=== PATIENT | female | born 1940 | race Caucasian/White ===

== ENCOUNTER 2018-04-15 22:06 | Emergency (ER) | payer OTHER ==
--- OUTSIDE RECORDS SUMMARY | 2018-04-15 22:07 | XMS REPORT | Clinical Summary ---
:1940 Author Organization [facility] Address [address] [place] [address] Phone Care Team Providers Name Role Phone Unavailable Primary Care Provider Unavailable Allergies No Known Allergies Current Medications Prescription Sig. Disp. Refills Start Date End Date Status digoxin (LANOXIN) Take 250 mcg Active 0.25 MG tablet by mouth daily. olmesartan-hydrochl Take 1 tablet Active orothiazide by mouth (BENICAR HCT) 40-25 daily. mg per tablet rivaroxaban Take 20 mg by Active (XARELTO) 20 mg Tab mouth daily. tablet amLODIPine Take 1 tablet 30 tablet 0 05/17/2017 05/17/2018 Active (NORVASC) 10 MG (10 mg total) tablet by mouth nightly. atorvastatin Take 1 tablet 30 tablet 0 05/17/2017 05/17/2018 Active (LIPITOR) 40 MG (40 mg total) tablet by mouth nightly. metoprolol Take 1 tablet 60 tablet 0 05/17/2017 05/17/2018 Active (LOPRESSOR) 100 MG (100 mg tablet total) by mouth 2 (two) times daily. senna-docusate Take 1 tablet 30 tablet 0 05/17/2017 05/17/2018 Active (SENOKOT S) 8.6-50 by mouth 2 mg per tablet (two) times daily. metoprolol Take 50 mg by 05/17/2017 Discontinued (TOPROL-XL) 50 MG mouth 2 (two) 24 hr tablet times daily. amLODIPine Take 5 mg by 05/17/2017 Discontinued (NORVASC) 5 MG mouth daily. tablet Active Problems Problem Noted Date Cerebrovascular accident (CVA), unspecified mechanism (HCC) 05/15/2017 Stroke (HCC) 05/14/2017 Encounters Date Type Specialty Care Team Description 05/14/2017 - Hospital Encounter General Internal Porsche, Umar, Cerebrovascular 05/17/2017 Medicine MD accident (CVA), [place], unspecified mechanism MD Yane ([facility]) (Primary Dx);Chronic atrial fibrillation (HCC);Essential hypertension after 04/14/2017 Social History Tobacco Use Types Packs/Day Years Used Date Never Smoker Sex Assigned at Date Recorded Not on file Last Filed Vital Signs Vital Sign Reading Time Taken Blood Pressure 158/81 05/17/2017 12:14 PM CDT Pulse 60 05/17/2017 12:14 PM CDT Temperature 35.8 C (96.4 F) 05/17/2017 12:14 PM CDT Respiratory Rate 22 05/17/2017 12:14 PM CDT Oxygen Saturation 97% 05/17/2017 12:14 PM CDT Inhaled Oxygen Concentration - - Weight 64.7 kg (142 lb 10.2 oz) 05/16/2017 4:48 AM CDT Height 162.5 cm (5' 3.98") 05/14/2017 8:00 PM CDT Body Mass Index 24.5 05/16/2017 4:48 AM CDT Plan of Treatment Not on file Results RHYTHM STRIP - SCAN (05/28/2017 12:50 PM)CT brain without IV contrast (2016 9:42 PM) Specimen Performing Laboratory [employer] Narrative FINAL REPORT CT Head without contrast CLINICAL HISTORY: evaluate for stroke Episode of Care: Initial TECHNIQUE: Contiguous axial images through the head without contrast. This exam was performed according to the departmental dose optimization program which includes automated exposure control, adjustment of the mA and/or kV according to the patient size, and/or use of an iterative reconstruction technique. COMPARISON: None FINDINGS: There is no definitive CT evidence of acute infarct. There is no intracranial hemorrhage. There is a chronic lacunar infarct of the right thalamus. There is periventricular and subcortical white matter hypodensity which is nonspecific but compatible with chronic microvascular ischemic change. There are atherosclerotic calcifications of the intracranial circulation. There is generalized parenchymal volume loss without hydrocephalus, midline shift, or apparent mass effect. There are no extra-axial fluid collections. The skull is intact. The visualized paranasal sinuses are well-aerated. There is nonspecific left frontal scalp swelling. IMPRESSION: There is no definitive CT evidence of acute infarct. There is no intracranial hemorrhage. Chronic right thalamic lacunar infarct. Signed: Kieran Dillard MD Report Verified Date/Time:05/16/2017 21:51:07 Reading Location: [facility] Radiology Reading Room Procedure Note Interface, External Ris In - 05/16/2017 9:53 PM CDT FINAL REPORT CT Head without contrast CLINICAL HISTORY: evaluate for stroke Episode of Care: Initial TECHNIQUE: Contiguous axial images through the head without contrast. This exam was performed according to the departmental dose optimization program which includes automated exposure control, adjustment of the mA and/or kV according to the patient size, and/or use of an iterative reconstruction technique. COMPARISON: None FINDINGS: There is no definitive CT evidence of acute infarct. There is no intracranial hemorrhage. There is a chronic lacunar infarct of the right thalamus. There is periventricular and subcortical white matter hypodensity which is nonspecific but compatible with chronic microvascular ischemic change. There are atherosclerotic calcifications of the intracranial circulation. There is generalized parenchymal volume loss without hydrocephalus, midline shift, or apparent mass effect. There are no extra-axial fluid collections. The skull is intact. The visualized paranasal sinuses are well-aerated. There is nonspecific left frontal scalp swelling. IMPRESSION: There is no definitive CT evidence of acute infarct. There is no intracranial hemorrhage. Chronic right thalamic lacunar infarct. Signed: Kieran Dillard MD Report Verified Date/Time: 05/16/2017 21:51:07 Reading Location: [facility] Radiology Reading Room carotid (05/16/2017 9:42 PM) Specimen Performing Laboratory [place] [facility] Narrative FINAL REPORT CT angiogram of the upper chest, neck, and head Comparison:None Reason for exam: Stroke, evaluate for large vessel disease Discussion: Multiple axial CT images of the upper chest, neck, and head were obtained using CT angiography technique. 2-D and 3-D reconstructed images were provided.3D MIPimages were generated. NASCET criteria are utilized when considering stenosis. Please note that CTA is inherently insensitive in evaluating the cavernous and skullbase portions of the internal carotid arteries because of adjacent bone and venous opacification. Dose modulation, iterative reconstruction, and/or weight based adjustment of the mA/kV was utilized to reduce the radiation dose to as low as reasonably achievable. Unenhanced head CT shows intracranial vascular calcification. Bilateral cerebral microvascular changes are noted including a chronic appearing punctate cavitated microvascular infarct right thalamus. Nonspecific ill-defined low-density parenchymal changes of the lateral left thalamus are identified for which subtle left thalamic microvascular infarct cannot be excluded. The appearance could be artifactual. While I see no definitive acute large vessel infarction, please note that CT is not sensitive in detecting or distinguishing acute ischemic disease. There are atherosclerotic calcifications in the aortic arch and in both subclavian arteries. There is a suspected mild stenosis of the right-sided subclavian artery just beyond the innominate bifurcation. Normal flow cervical segment vertebral arteries. There is maintained flow in the cervical carotid systems with bilateral carotid bulb calcified atherosclerotic plaque. On the right, there is only mild stenosis estimated at 20%. On the left, stenosis throughout the carotid bulb region is approximately 50% by NASCET criteria. No other cervical level carotid stenosis. There are atherosclerotic calcifications throughout the carotid siphon regions on both sides with suspected bilateral mild stenosis. Normal flow in the carotid terminus and carotid terminus branches proximally. There is a mild atherosclerotic stenosis of the intradural left vertebral artery. Otherwise normal vertebrobasilar and proximal posterior cerebral artery flow. Impressions: 1. Questionable recent left thalamic microvascular infarct versus artifact. No other specific evidence of acute intracranial abnormality. 2. Left-sided carotid bulb 50% stenosis. Other upper chest, cervical, and intracranial atherosclerotic involvement is only mild in degree. 3. Incidental note is made of a solid spherical mass of the right parotid tail maximal dimension 2 cm. 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 Consider ENT follow-up. Signed: Aubrie Manuel MD Report Verified Date/Time:05/17/2017 09:39:43 Reading Location: [address] Neuro Reading Room Procedure Note Interface, External Ris In - 05/17/2017 9:41 AM CDT FINAL REPORT CT angiogram of the upper chest, neck, and head Comparison: None Reason for exam: Stroke, evaluate for large vessel disease Discussion: Multiple axial CT images of the upper chest, neck, and head were obtained using CT angiography technique. 2-D and 3-D reconstructed images were provided. 3D MIP images were generated. NASCET criteria are utilized when considering stenosis. Please note that CTA is inherently insensitive in evaluating the cavernous and skullbase portions of the internal carotid arteries because of adjacent bone and venous opacification. Dose modulation, iterative reconstruction, and/or weight based adjustment of the mA/kV was utilized to reduce the radiation dose to as low as reasonably achievable. Unenhanced head CT shows intracranial vascular calcification. Bilateral cerebral microvascular changes are noted including a chronic appearing punctate cavitated microvascular infarct right thalamus. Nonspecific ill-defined low-density parenchymal changes of the lateral left thalamus are identified for which subtle left thalamic microvascular infarct cannot be excluded. The appearance could be artifactual. While I see no definitive acute large vessel infarction, please note that CT is not sensitive in detecting or distinguishing acute ischemic disease. There are atherosclerotic calcifications in the aortic arch and in both subclavian arteries. There is a suspected mild stenosis of the right-sided subclavian artery just beyond the innominate bifurcation. Normal flow cervical segment vertebral arteries. There is maintained flow in the cervical carotid systems with bilateral carotid bulb calcified atherosclerotic plaque. On the right, there is only mild stenosis estimated at 20%. On the left, stenosis throughout the carotid bulb region is approximately 50% by NASCET criteria. No other cervical level carotid stenosis. There are atherosclerotic calcifications throughout the carotid siphon regions on both sides with suspected bilateral mild stenosis. Normal flow in the carotid terminus and carotid terminus branches proximally. There is a mild atherosclerotic stenosis of the intradural left vertebral artery. Otherwise normal vertebrobasilar and proximal posterior cerebral artery flow. Impressions: 1. Questionable recent left thalamic microvascular infarct versus artifact. No other specific evidence of acute intracranial abnormality. 2. Left-sided carotid bulb 50% stenosis. Other upper chest, cervical, and intracranial atherosclerotic involvement is only mild in degree. 3. Incidental note is made of a solid spherical mass of the right parotid tail maximal dimension 2 cm. 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 Consider ENT follow-up. Signed: Aubrie Manuel MD Report Verified Date/Time: 05/17/2017 09:39:43 Reading Location: [address] Neuro Reading Room brain (05/16/2017 9:42 PM) Specimen Performing Laboratory [place] [facility] Narrative FINAL REPORT CT angiogram of the upper chest, neck, and head Comparison:None Reason for exam: Stroke, evaluate for large vessel disease Discussion: Multiple axial CT images of the upper chest, neck, and head were obtained using CT angiography technique. 2-D and 3-D reconstructed images were provided.3D MIPimages were generated. NASCET criteria are utilized when considering stenosis. Please note that CTA is inherently insensitive in evaluating the cavernous and skullbase portions of the internal carotid arteries because of adjacent bone and venous opacification. Dose modulation, iterative reconstruction, and/or weight based adjustment of the mA/kV was utilized to reduce the radiation dose to as low as reasonably achievable. Unenhanced head CT shows intracranial vascular calcification. Bilateral cerebral microvascular changes are noted including a chronic appearing punctate cavitated microvascular infarct right thalamus. Nonspecific ill-defined low-density parenchymal changes of the lateral left thalamus are identified for which subtle left thalamic microvascular infarct cannot be excluded. The appearance could be artifactual. While I see no definitive acute large vessel infarction, please note that CT is not sensitive in detecting or distinguishing acute ischemic disease. There are atherosclerotic calcifications in the aortic arch and in both subclavian arteries. There is a suspected mild stenosis of the right-sided subclavian artery just beyond the innominate bifurcation. Normal flow cervical segment vertebral arteries. There is maintained flow in the cervical carotid systems with bilateral carotid bulb calcified atherosclerotic plaque. On the right, there is only mild stenosis estimated at 20%. On the left, stenosis throughout the carotid bulb region is approximately 50% by NASCET criteria. No other cervical level carotid stenosis. There are atherosclerotic calcifications throughout the carotid siphon regions on both sides with suspected bilateral mild stenosis. Normal flow in the carotid terminus and carotid terminus branches proximally. There is a mild atherosclerotic stenosis of the intradural left vertebral artery. Otherwise normal vertebrobasilar and proximal posterior cerebral artery flow. Impressions: 1. Questionable recent left thalamic microvascular infarct versus artifact. No other specific evidence of acute intracranial abnormality. 2. Left-sided carotid bulb 50% stenosis. Other upper chest, cervical, and intracranial atherosclerotic involvement is only mild in degree. 3. Incidental note is made of a solid spherical mass of the right parotid tail maximal dimension 2 cm. 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 Consider ENT follow-up. Signed: Aubrie Manuel MD Report Verified Date/Time:05/17/2017 09:39:43 Reading Location: [facility] [id number] Neuro Reading Room Procedure Note Interface, External Ris In - 05/17/2017 9:41 AM CDT FINAL REPORT CT angiogram of the upper chest, neck, and head Comparison: None Reason for exam: Stroke, evaluate for large vessel disease Discussion: Multiple axial CT images of the upper chest, neck, and head were obtained using CT angiography technique. 2-D and 3-D reconstructed images were provided. 3D MIP images were generated. NASCET criteria are utilized when considering stenosis. Please note that CTA is inherently insensitive in evaluating the cavernous and skullbase portions of the internal carotid arteries because of adjacent bone and venous opacification. Dose modulation, iterative reconstruction, and/or weight based adjustment of the mA/kV was utilized to reduce the radiation dose to as low as reasonably achievable. Unenhanced head CT shows intracranial vascular calcification. Bilateral cerebral microvascular changes are noted including a chronic appearing punctate cavitated microvascular infarct right thalamus. Nonspecific ill-defined low-density parenchymal changes of the lateral left thalamus are identified for which subtle left thalamic microvascular infarct cannot be excluded. The appearance could be artifactual. While I see no definitive acute large vessel infarction, please note that CT is not sensitive in detecting or distinguishing acute ischemic disease. There are atherosclerotic calcifications in the aortic arch and in both subclavian arteries. There is a suspected mild stenosis of the right-sided subclavian artery just beyond the innominate bifurcation. Normal flow cervical segment vertebral arteries. There is maintained flow in the cervical carotid systems with bilateral carotid bulb calcified atherosclerotic plaque. On the right, there is only mild stenosis estimated at 20%. On the left, stenosis throughout the carotid bulb region is approximately 50% by NASCET criteria. No other cervical level carotid stenosis. There are atherosclerotic calcifications throughout the carotid siphon regions on both sides with suspected bilateral mild stenosis. Normal flow in the carotid terminus and carotid terminus branches proximally. There is a mild atherosclerotic stenosis of the intradural left vertebral artery. Otherwise normal vertebrobasilar and proximal posterior cerebral artery flow. Impressions: 1. Questionable recent left thalamic microvascular infarct versus artifact. No other specific evidence of acute intracranial abnormality. 2. Left-sided carotid bulb 50% stenosis. Other upper chest, cervical, and intracranial atherosclerotic involvement is only mild in degree. 3. Incidental note is made of a solid spherical mass of the right parotid tail maximal dimension 2 cm. 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 Consider ENT follow-up. Signed: Aubrie Manuel MD Report Verified Date/Time: 05/17/2017 09:39:43 Reading Location: [address] Neuro Reading Room Transthoracic 2D echo w/ doppler (cw/pw/color) (05/16/2017 7:46 AM) Component Value Ref Range Ejection Fraction LV EF BP 55 % Specimen Performing Laboratory [facility] Echocardiography Laboratory [address] [place] [id number] Voice:[phone] Transthoracic Echocardiogram Pat.Name:Zion CLEMENTS.ID:[id number] St.Date: 05/16/2017Refer.MD:JOMAR PRADO Exam Time: 7:46:00 AMStudy Type:Echo Complete Height:64inWeight: 142lb BSA: 1.69 m2 DOBAge:1940,76Y Sex: FEMALEBP:162/81 HR:66 bpmSonogrphr: Natalia Alberto RDCS Pat. Stat.:Inpatient Room:[id number] CPT - 4: 21110 Reason for Study:Sustained or Nonsustained Atrial Fib, SVT or VT History / Clinical:STROKE, CVA, HTN,AFIB Procedures:2D ECHO W/ DOPPLER (CW/PW/COLOR) SUMMARY: Normal LV chamber size. Normal wall thickness. Normal overall LV systolic function. No apparent segmental wall motion abnormalities. Estimated LVEF by qualitative assessment is normal (> 60%). Degree of diastolic dysfunction (LAP assessment) is inconclusive due to atrial arrhythmia. The right ventricular chamber size and systolic function are within normal limits. Nuhr-wv-jzluenqt mitral regurgitation. Tlivpzhu-md-uiadlw tricuspid regurgitation. Estimated peak systolic PA pressure is 40-45 mmHg + RA pressure. No pericardial effusion is visualized. The estimated RA pressure by IVC dynamics 16-20 mmHg. FINDINGS: LV: Normal LV chamber size. Normal wall thickness. Normal overallLV systolic function. No apparent segmental wall motionabnormalities. Overall LV systolic function normal byavailable views. Estimated LVEF by qualitative assessmentis normal (> 60%). Degree of diastolic dysfunction(LAP assessment) is inconclusive due to atrial arrhythmia. LA: LA size is severely enlarged (>48 ml/m2). RV: The right ventricular chamber size and systolic function are withinnormal limits. RA: RA cavity size is severely enlarged. AV: Mild aortic regurgitation. Mild AoV cusp thickening. MV: Sodz-ia-fbmefdmi mitral regurgitation. Mild MV leaflet thickening. TV: Btlmcyld-li-wwgwjz tricuspid regurgitation. Estimated peak systolicPA pressure is 40-45 mmHg + RA pressure. PV: Normal PV structure and function by limited views and Doppler. AO: Aortic root size (Sinus of Valsalva diameter) is normal. Pericard: No pericardial effusion is visualized. Systemic Veins: The estimated RA pressure by IVC dynamics 16-20 mmHg. MEASUREMENTS: 2D LA Sng Plane LA Vol 132 mlIndex 78.2 ml/m2 LA Area 33.3 cm2(8.8-23.4)* Parasternal Long [place] Ao An 1.82 cm (1.4-2.6) LV%fs 43.1 %(25-46) Ao Rtd2.76 cmLVPWd 1.01 cm IVSd 0.748 cm LA Ds 4.29 cm (2.3-3.8)* LVIDd 4.15 cm (4.3-5.1)* LV Wmn 0.88 cm LVIDs 2.36 cm (2-4) Left Atrium LA Vol BP104 cc Left Ventricle LVEDV BP38 ccIndex 22.5 cc/m2 LVESV BP17 ccLV SV BP21 cc Signed 05/16/2017 01:07 PM Dex Banegas M.D. Procedure Note Interface, External Ris In - 05/16/2017 1:08 PM CDT Echocardiography Laboratory [address] [place] [id number] Voice: [phone] Transthoracic Echocardiogram Pat.Name: IRENE CLEMENTS Pat.ID: [id number] .Date: 05/16/2017 Refer.MD: JOMAR PRADO Exam Time: 7:46:00 AM Study Type:Echo Complete Height: 64in Weight: 142lb BSA: 1.69 m2 Age: 1 1940,76Y Sex: FEMALE BP: 162/81 HR: 66 bpm Sonogrphr: Natalia Alberto RDCS Pat. Stat.:Inpatient Room: [facility] CPT - 4: 93317 Reason for Study:Sustained or Nonsustained Atrial Fib, SVT or VT History / Clinical:STROKE, CVA, HTN, AFIB Procedures:2D ECHO W/ DOPPLER (CW/PW/COLOR) SUMMARY: Normal LV chamber size. Normal wall thickness. Normal overall LV systolic function. No apparent segmental wall motion abnormalities. Estimated LVEF by qualitative assessment is normal (> 60%). Degree of diastolic dysfunction (LAP assessment) is inconclusive due to atrial arrhythmia. The right ventricular chamber size and systolic function are within normal limits. Kkkf-yr-jzeujmtq mitral regurgitation. Mltprxmn-fs-nowtlq tricuspid regurgitation. Estimated peak systolic PA pressure is 40-45 mmHg + RA pressure. No pericardial effusion is visualized. The estimated RA pressure by IVC dynamics 16-20 mmHg. FINDINGS: LV: Normal LV chamber size. Normal wall thickness. Normal overall LV systolic function. No apparent segmental wall motion abnormalities. Overall LV systolic function normal by available views. Estimated LVEF by qualitative assessment is normal (> 60%). Degree of diastolic dysfunction (LAP assessment) is inconclusive due to atrial arrhythmia. LA: LA size is severely enlarged (>48 ml/m2). RV: The right ventricular chamber size and systolic function are within normal limits. RA: RA cavity size is severely enlarged. AV: Mild aortic regurgitation. Mild AoV cusp thickening. MV: Nfzd-kj-hpgbjrap mitral regurgitation. Mild MV leaflet thickening. TV: Sfkfgpsn-ss-gikruy tricuspid regurgitation. Estimated peak systolic PA pressure is 40-45 mmHg + RA pressure. PV: Normal PV structure and function by limited views and Doppler. AO: Aortic root size (Sinus of Valsalva diameter) is normal. Pericard: No pericardial effusion is visualized. Systemic Veins: The estimated RA pressure by IVC dynamics 16-20 mmHg. MEASUREMENTS: 2D LA Sng Plane LA Vol 132 ml Index 78.2 ml/m2 LA Area 33.3 cm2 (8.8-23.4)* Parasternal Long [place] Ao An 1.82 cm (1.4-2.6) LV%fs 43.1 % (25-46) Ao Rtd 2.76 cm LVPWd 1.01 cm IVSd 0.748 cm LA Ds 4.29 cm (2.3-3.8)* LVIDd 4.15 cm (4.3-5.1)* LV Wmn 0.88 cm LVIDs 2.36 cm (2-4) Left Atrium LA Vol BP 104 cc Left Ventricle LVEDV BP 38 cc Index 22.5 cc/m2 LVESV BP 17 cc LV SV BP 21 cc Signed 05/16/2017 01:07 PM Dex Banegas M.D. Magnesium (05/16/2017 6:27 AM)Only the most recent of2 resultswithin the time period is included. Component Value Ref Range Magnesium 1.9 1.6 - 2.6 mg/dL Specimen Performing Laboratory Blood [address] [address] Basic Metabolic Panel (05/16/2017 6:27 AM)Only the most recent of3 resultswithin the time period is included. Component Value Ref Range Sodium 133 (L) 136 - 145 meq/L Potassium 3.7 3.5 - 5.1 meq/L Chloride 101 98 - 107 meq/L CO2 24 22 - 29 meq/L BUN 20 7 - 21 mg/dL Creatinine 0.69 0.57 - 1.25 mg/dL Glucose 133 (H) 70 - 105 mg/dL Calcium 8.6 8.4 - 10.2 mg/dL EGFR 82Comment: ESTIMATED GFR IS NOT ACCURATE mL/min/1.73 sq m CREATININE CLEARANCE IN PREDICTING GLOMERULAR FILTRATION RATE. ESTIMATED GFR IS NOT APPLICABLE FOR DIALYSIS PATIENTS. Specimen Performing Laboratory Blood [address] [address] ECG 12 lead (05/16/2017 5:45 AM) Specimen Performing Laboratory GE MUSE Narrative Ventricular Rate 65 BPM Atrial Rate 72 BPM QRS Duration 84 ms Q-T Interval 382 ms QTC Calculation(Bazett) 397 ms R [place] -21 degrees T [place] -50 degrees Atrial fibrillation with premature ventricular or aberrantly conducted complexes Possible Anterior infarct , age undetermined Abnormal ECG Confirmed by MD Drake Roberto ([id number]) on 05/16/2017 9:34:21 AM Procedure Note Interface, External Ris In - 05/16/2017 9:34 AM CDT Ventricular Rate 65 BPM Atrial Rate 72 BPM QRS Duration 84 ms Q-T Interval 382 ms QTC Calculation(Bazett) 397 ms R [place] -21 degrees T [place] -50 degrees Atrial fibrillation with premature ventricular or aberrantly conducted complexes Possible Anterior infarct , age undetermined Abnormal ECG Confirmed by MD Drake Roberto ([id number]) on 05/16/2017 9:34:21 AM CBC (Hemogram only) (05/16/2017 4:49 AM) Component Value Ref Range WBC 7.2 3.5 - 10.5 K/L RBC 4.72 3.93 - 5.22 M/L Hemoglobin 15.3 11.2 - 15.7 GM/DL Hematocrit 45.9 (H) 34.1 - 44.9 % MCV 97.2 (H) 79.4 - 94.8 fL MCH 32.4 (H) 25.6 - 32.2 pg MCHC 33.3 32.2 - 35.5 GM/DL RDW 14.5 (H) 11.7 - 14.4 % Platelets 170 150 - 450 K/CU MM MPV 10.7 9.4 - 12.3 fL nRBC 0 0 - 0 /100 WBC Specimen Performing Laboratory Blood [address] [address] Comprehensive metabolic panel (05/16/2017 4:49 AM) Component Value Ref Range Protein, Total 6.7Comment: Specimen moderately hemolyzed 6.0 - 8.3 gm/dL Albumin 3.7Comment: Specimen moderately hemolyzed 3.5 - 5.0 g/dL Alkaline Phosphatase 67 40 - 150 U/L Total Bilirubin 1.1Comment: Specimen moderately hemolyzed 0.2 - 1.2 mg/dL Sodium 129 (L) 136 - 145 meq/L Potassium 5.2 (H)Comment: Specimen moderately hemolyzed 3.5 - 5.1 meq/L Chloride 101 98 - 107 meq/L CO2 17 (L) 22 - 29 meq/L BUN 20 7 - 21 mg/dL Creatinine 0.74Comment: Specimen moderately hemolyzed 0.57 - 1.25 mg/dL Glucose 125 (H) 70 - 105 mg/dL Calcium 8.6 8.4 - 10.2 mg/dL AST 39 (H)Comment: Specimen moderately hemolyzed 5 - 34 U/L ALT 28Comment: Specimen moderately hemolyzed 6 - 55 U/L EGFR 76Comment: ESTIMATED GFR IS NOT ACCURATE mL/min/1.73 sq m CREATININE CLEARANCE IN PREDICTING GLOMERULAR FILTRATION RATE. ESTIMATED GFR IS NOT APPLICABLE FOR DIALYSIS PATIENTS. Specimen Performing Laboratory Blood [address] [address] Fasting lipid panel (05/15/2017 5:54 AM) Component Value Ref Range Triglycerides 223Comment: Specimen slightly hemolyzed mg/dL Cholesterol 176Comment: Specimen slightly hemolyzed mg/dL HDL 42 mg/dL LDL Calculated 89 mg/dL Specimen Performing Laboratory Blood [address] [address] Narrative Triglyceride Reference Range: Low Risk <150 Vytduuloix534-474 High Risk 200-499 Very High Risk>=500 Cholesterol Reference Range: Low Risk <200 Edwfprzcjq613-757 High Risk>240 HDL Cholesterol Reference Range: Low Risk >=60 High Risk <40 LDL Cholesterol Reference Range: Optimal<100 Near Oxeuugl019-651 Lyjbksjfbd088-565 Xjet291-583 Very High >=190 Fasting Vitamin B12 and Folate (05/14/2017 11:43 PM) Component Value Ref Range Vitamin B12 514 213 - 816 pg/mL Folate >40.0 >=7.0 ng/mL Specimen Performing Laboratory Blood [address] [address] Narrative Effective 08/31/2014: Folate Reference Range Change New: >=7.0Previous: >=5.4 TSH/Free T4 If Indicated (05/14/2017 11:43 PM) Component Value Ref Range TSH 2.55 0.35 - 4.94 uIU/mL Specimen Performing Laboratory Blood [address] [address] C-Reactive Protein (05/14/2017 11:43 PM) Component Value Ref Range CRP 0.55 (H) 0.00 - 0.50 mg/dL Specimen Performing Laboratory Blood [address] [address] CBC with platelet count + automated diff (05/14/2017 11:43 PM) Component Value Ref Range WBC 9.3 3.5 - 10.5 K/L RBC 4.77 3.93 - 5.22 M/L Hemoglobin 15.6 11.2 - 15.7 GM/DL Hematocrit 45.4 (H) 34.1 - 44.9 % MCV 95.2 (H) 79.4 - 94.8 fL MCH 32.7 (H) 25.6 - 32.2 pg MCHC 34.4 32.2 - 35.5 GM/DL RDW 14.2 11.7 - 14.4 % Platelets 166 150 - 450 K/CU MM MPV 10.6 9.4 - 12.3 fL nRBC 0 0 - 0 /100 WBC % Neutros 64 % % Lymphs 26 % % Monos 8 % % Eos 1 % % Baso 1 % # Neutros 5.97 1.56 - 6.13 K/L # Lymphs 2.41 1.18 - 3.74 K/L # Monos 0.77 (H) 0.24 - 0.36 K/L # Eos 0.07 0.04 - 0.36 K/L # Baso 0.05 0.01 - 0.08 K/L Immature Granulocytes-Relative 0 0 - 1 % Specimen Performing Laboratory [address] [address] Troponin I (05/14/2017 11:43 PM) Component Value Ref Range Troponin I 0.01 0.00 - 0.03 ng/mL Specimen Performing Laboratory [address] [address] Narrative Effective 08/31/2014: Reference Range Change New: 0.00-0.03 Previous 0.00-0.15 Troponin I (TnI) levels must be interpreted in the context of the presenting symptoms and the clinical findings. Elevated TnI levels indicate myocardial damage, but are not specific for ischemic heart disease. Elevated TnI levels are seen in patients with other cardiac conditions (including myocarditis and congestive heart failure), and slight TnI elevations occur in patients with other conditions, including sepsis, renal failure, acidosis, acute neurological disease, and persistent tachyarrhythmia. RPR (05/14/2017 11:43 PM) Component Value Ref Range RPR Nonreactive Nonreactive Specimen Performing Laboratory [address] [address] Sedimentation rate (05/14/2017 11:43 PM) Component Value Ref Range Sed Rate 6 0 - 40 mm/HR Specimen Performing Laboratory [address] [address] Prothrombin time/INR (05/14/2017 11:43 PM) Component Value Ref Range Protime 15.6 (H) 11.7 - 14.7 seconds INR 1.3 <=5.9 Specimen Performing Laboratory Blood [facility] [address] Narrative RECOMMENDED COUMADIN/WARFARIN INR THERAPY RANGES STANDARD DOSE: 2.0 - 3.0 Includes: PROPHYLAXIS for venous thrombosis, systemic embolization; TREATMENT for venous thrombosis and/or pulmonary embolus. HIGH RISK: Target INR is 2.5-3.5 for patients with mechanical heart valves. CBC with platelet count + automated diff (05/14/2017 11:43 PM) Specimen Performing Laboratory Blood Narrative The following orders were created for panel order CBC with platelet count + automated diff. Procedure Abnormality Status --------- ------ CBC with platelet count ...[[id number]]AbnormalFinal result Please view results for these tests on the individual orders. Homocysteine (05/14/2017 11:43 PM) Component Value Ref Range Homocysteine 8.5 5.1 - 15.4 umol/L Specimen Performing Laboratory Blood [address] [address] Hemoglobin A1c (05/14/2017 11:43 PM) Component Value Ref Range Hemoglobin A1C 6.2 (H) 4.3 - 6.1 % Specimen Performing Laboratory Blood [address] [address] Hepatic function panel (05/14/2017 11:43 PM) Component Value Ref Range Protein, Total 6.7 6.0 - 8.3 gm/dL Albumin 4.0 3.5 - 5.0 g/dL Total Bilirubin 1.3 (H) 0.2 - 1.2 mg/dL Bilirubin, Direct 0.4 0.1 - 0.5 mg/dL Alkaline Phosphatase 56 40 - 150 U/L AST 30 5 - 34 U/L ALT 31 6 - 55 U/L Specimen Performing Laboratory Blood [address] [address] Urinalysis w/Microscopic (05/14/2017 11:14 PM) Component Value Ref Range Color, UA Light Yellow Clarity, UA Clear Specific [place], UA 1.006 1.001 - 1.035 pH, UA 7.5 5.0 - 8.0 Protein, UA 20 mg/dL (A) Negative Glucose, UA Negative Negative Ketones, UA Negative Negative Bilirubin, UA Negative Negative Blood, UA Negative Negative Nitrite, UA Negative Negative Leukocytes, UA Negative Negative Urobilinogen, UA 0.2 0.2 - 1.0 mg/dL RBC, UA <1 /HPF WBC, UA <1 /HPF Squam Epithel, UA 1 /HPF Specimen Source Urine, Voided Specimen Performing Laboratory Urine - Urine, Voided [facility] [address] [address] after 04/14/2017
--- OUTSIDE RECORDS SUMMARY | 2018-04-15 22:08 | XMS REPORT ---
:1940 Author Organization [facility] Address [address] [place] [id number] Care Team Providers Name Role Phone YAKOV GARCIA Unavailable Unavailable Problems This patient has no known problems. Allergies, Adverse Reactions, Alerts This patient has no known allergies or adverse reactions. Medications This patient has no known medications. Results Test Description Test Time Test Comments Text Results Atomic Results Result Comments HEMOGLOBIN A1C 2017-05-16 21:48:00 Test Item Value Reference Range Comments HEMOGLOBIN A1C (BEAKER) (test giwk=854) 6.2 % 4.3-6.1 [id number] 07:10:00 Test Item Value Reference Range Comments MAGNESIUM (BEAKER) (test qaqr=056) 1.9 mg/dL 1.6-2.6 BASIC METABOLIC [id number] 07:10:00 Test Item Value Reference Range Comments SODIUM (BEAKER) (test 133 meq/L 136-145 cbqf=224) POTASSIUM (BEAKER) (test 3.7 meq/L 3.5-5.1 kqit=449) CHLORIDE (BEAKER) (test 101 meq/L 98-107 wycg=162) CO2 (BEAKER) (test 24 meq/L 22-29 llpf=813) BLOOD UREA NITROGEN 20 mg/dL 7-21 (BEAKER) (test vqel=563) CREATININE (BEAKER) (test 0.69 mg/dL 0.57-1.25 dxrv=136) GLUCOSE RANDOM (BEAKER) 133 mg/dL 70-105 (test kecw=839) CALCIUM (BEAKER) (test 8.6 mg/dL 8.4-10.2 acrr=989) EGFR (BEAKER) (test 82 mL/min/1.73 sq m ESTIMATED GFR IS NOT khek=8099) ACCURATE CREATININE CLEARANCE IN PREDICTING GLOMERULAR FILTRATION RATE. ESTIMATED GFR IS NOT APPLICABLE FOR DIALYSIS PATIENTS. CBC (HEMOGRAM ONLY)2017-05-16 05:48:00 Test Item Value Reference Range Comments WHITE BLOOD CELL COUNT (BEAKER) (test lsfh=693) 7.2 K/ L 3.5-10.5 RED BLOOD CELL COUNT (BEAKER) (test juvt=903) 4.72 M/ L 3.93-5.22 HEMOGLOBIN (BEAKER) (test ycez=801) 15.3 GM/DL 11.2-15.7 HEMATOCRIT (BEAKER) (test majw=374) 45.9 % 34.1-44.9 MEAN CORPUSCULAR VOLUME (BEAKER) (test wyle=244) 97.2 fL 79.4-94.8 MEAN CORPUSCULAR HEMOGLOBIN (BEAKER) (test 32.4 pg 25.6-32.2 ksqj=050) MEAN CORPUSCULAR HEMOGLOBIN CONC (BEAKER) (test 33.3 GM/DL 32.2-35.5 rdhf=126) RED CELL DISTRIBUTION WIDTH (BEAKER) (test 14.5 % 11.7-14.4 onkf=651) PLATELET COUNT (BEAKER) (test feem=881) 170 K/CU MM 150-450 MEAN PLATELET VOLUME (BEAKER) (test fszu=167) 10.7 fL 9.4-12.3 NUCLEATED RED BLOOD CELLS (BEAKER) (test 0 /100 WBC 0-0 ulcu=629) [id number] 05:45:00 Test Item Value Reference Range Comments MAGNESIUM (BEAKER) (test 2.3 mg/dL 1.6-2.6 Specimen moderately hemolyzed siks=710) COMPREHENSIVE METABOLIC [id number] 05:45:00 Test Item Value Reference Range Comments TOTAL PROTEIN (BEAKER) 6.7 gm/dL 6.0-8.3 Specimen moderately (test aymb=252) hemolyzed ALBUMIN (BEAKER) (test 3.7 g/dL 3.5-5.0 Specimen moderately fpig=0614) hemolyzed ALKALINE PHOSPHATASE 67 U/L 40-150 (BEAKER) (test lxvz=285) BILIRUBIN TOTAL (BEAKER) 1.1 mg/dL 0.2-1.2 Specimen moderately (test lypk=399) hemolyzed SODIUM (BEAKER) (test 129 meq/L 136-145 ryib=877) POTASSIUM (BEAKER) (test 5.2 meq/L 3.5-5.1 Specimen moderately gwxd=238) hemolyzed CHLORIDE (BEAKER) (test 101 meq/L 98-107 caqv=745) CO2 (BEAKER) (test 17 meq/L 22-29 wyfp=373) BLOOD UREA NITROGEN 20 mg/dL 7-21 (BEAKER) (test sbpp=183) CREATININE (BEAKER) (test 0.74 mg/dL 0.57-1.25 Specimen moderately ljdy=952) hemolyzed GLUCOSE RANDOM (BEAKER) 125 mg/dL 70-105 (test pxec=488) CALCIUM (BEAKER) (test 8.6 mg/dL 8.4-10.2 jyko=992) AST (SGOT) (BEAKER) (test 39 U/L 5-34 Specimen moderately tuwe=031) hemolyzed ALT (SGPT) (BEAKER) (test 28 U/L 6-55 Specimen moderately vlky=428) hemolyzed EGFR (BEAKER) (test 76 mL/min/1.73 sq m ESTIMATED GFR IS NOT tixd=7739) ACCURATE CREATININE CLEARANCE IN PREDICTING GLOMERULAR FILTRATION RATE. ESTIMATED GFR IS NOT APPLICABLE FOR DIALYSIS PATIENTS. [id number] 11:50:00 Test Item Value Reference Range Comments RPR SCREEN (BEAKER) (test myge=434) Nonreactive Nonreactive BASIC METABOLIC [id number] 06:28:00 Test Item Value Reference Range Comments SODIUM (BEAKER) (test 134 meq/L 136-145 gkcs=908) POTASSIUM (BEAKER) (test 3.7 meq/L 3.5-5.1 Specimen slightly jwwz=422) hemolyzed CHLORIDE (BEAKER) (test 97 meq/L 98-107 irve=465) CO2 (BEAKER) (test 28 meq/L 22-29 nwks=899) BLOOD UREA NITROGEN 16 mg/dL 7-21 (BEAKER) (test mdbs=060) CREATININE (BEAKER) (test 0.70 mg/dL 0.57-1.25 Specimen slightly joeo=066) hemolyzed GLUCOSE RANDOM (BEAKER) 124 mg/dL 70-105 (test lmdt=192) CALCIUM (BEAKER) (test 9.0 mg/dL 8.4-10.2 lqcg=126) EGFR (BEAKER) (test 81 mL/min/1.73 sq m ESTIMATED GFR IS NOT mxab=4818) ACCURATE CREATININE CLEARANCE IN PREDICTING GLOMERULAR FILTRATION RATE. ESTIMATED GFR IS NOT APPLICABLE FOR DIALYSIS PATIENTS. FastingLIPID [id number] 06:28:00 Test Item Value Reference Range Comments TRIGLYCERIDES (BEAKER) (test 223 mg/dL Specimen slightly hemolyzed tjhp=856) CHOLESTEROL (BEAKER) (test 176 mg/dL Specimen slightly hemolyzed ggcb=263) HDL CHOLESTEROL (BEAKER) (test 42 mg/dL femy=931) LDL CHOLESTEROL CALCULATED 89 mg/dL (BEAKER) (test qjya=072) Triglyceride Reference Range: Low Risk <150 Borderline 150- 199 High Risk 200-499 Very High Risk >=500Cholesterol Reference Range: Low Risk <200 Borderline 200-239 High Risk > 240HDL Cholesterol Reference Range: Low Risk >=60 High Risk <40LDL Cholesterol Reference Range: Optimal <100 Near Optimal 100-129 Borderline 130-159 High 160-189 Very High >=190 FastingVITAMIN B12 AND [id number] 04:10:00 Test Item Value Reference Range Comments VITAMIN B12 (BEAKER) (test zpfi=438) 514 pg/mL 213-816 FOLATE (BEAKER) (test vwtz=642) > ng/mL >=7.0 Effective 08/31/2014: Folate Reference Range ChangeNew: >=7.0 Previous: & gt;=5.4TSH/FREE T4 IF [id number] 02:52:00 Test Item Value Reference Range Comments THYROID STIMULATING HORMONE (BEAKER) (test 2.55 uIU/mL 0.35-4.94 xwba=832) SEDIMENTATION [id number] 01:10:00 Test Item Value Reference Range Comments SEDIMENTATION RATE, ERYTHROCYTE (BEAKER) (test 6 mm/HR 0-40 jhgo=528) [id number] 00:35:00 Test Item Value Reference Range Comments HOMOCYSTEINE (BEAKER) (test bucs=728) 8.5 umol/L 5.1-15.4 URINALYSIS W/ [id number] 00:30:00 Test Item Value Reference Range Comments COLOR (BEAKER) (test xcht=086) Light Yellow CLARITY (BEAKER) (test pcri=360) Clear SPECIFIC GRAVITY UA (BEAKER) (test gihx=726) 1.006 1.001-1.035 PH UA (BEAKER) (test kkhz=130) 7.5 5.0-8.0 PROTEIN UA (BEAKER) (test utlb=515) 20 mg/dL Negative GLUCOSE UA (BEAKER) (test pfvf=374) Negative Negative KETONES UA (BEAKER) (test cecp=248) Negative Negative BILIRUBIN UA (BEAKER) (test ihga=671) Negative Negative BLOOD UA (BEAKER) (test gofh=252) Negative Negative NITRITE UA (BEAKER) (test jmzm=612) Negative Negative LEUKOCYTE ESTERASE UA (BEAKER) (test lqul=820) Negative Negative UROBILINOGEN UA (BEAKER) (test bjuz=806) 0.2 mg/dL 0.2-1.0 RBC UA (BEAKER) (test mkfo=392) < /HPF WBC UA (BEAKER) (test iofp=855) < /HPF SQUAMOUS EPITHELIAL (BEAKER) (test ptsw=249) 1 /HPF SOURCE(BEAKER) (test tkat=0504) Urine, Voided TROPONIN [id number] 00:23:00 Test Item Value Reference Range Comments TROPONIN I (BEAKER) (test xpxd=722) 0.01 ng/mL 0.00-0.03 Effective 08/31/2014: Reference Range ChangeNew: 0.00-0.03 Previous 0.00- 0.15Troponin I (TnI) levels must be interpreted in the context of the presenting symptoms and the clinical findings. Elevated TnI levels indicate myocardial damage, but are not specific for ischemic heart disease. Elevated TnI levels are seen in patients with other cardiac conditions (including myocarditis and congestive heartfailure), and slight TnI elevations occur in patients with other conditions, including sepsis, renalfailure, acidosis, acute neurological disease, and persistent tachyarrhythmia.HEPATIC FUNCTION [id number] 00:17:00 Test Item Value Reference Range Comments TOTAL PROTEIN (BEAKER) (test nncf=793) 6.7 gm/dL 6.0-8.3 ALBUMIN (BEAKER) (test setp=9261) 4.0 g/dL 3.5-5.0 BILIRUBIN TOTAL (BEAKER) (test xxaq=080) 1.3 mg/dL 0.2-1.2 BILIRUBIN DIRECT (BEAKER) (test lzgm=619) 0.4 mg/dL 0.1-0.5 ALKALINE PHOSPHATASE (BEAKER) (test duju=790) 56 U/L 40-150 AST (SGOT) (BEAKER) (test jrmx=000) 30 U/L 5-34 ALT (SGPT) (BEAKER) (test vmni=531) 31 U/L 6-55 BASIC METABOLIC [id number] 00:17:00 Test Item Value Reference Range Comments SODIUM (BEAKER) (test 132 meq/L 136-145 gfak=418) POTASSIUM (BEAKER) (test 3.4 meq/L 3.5-5.1 tzph=471) CHLORIDE (BEAKER) (test 93 meq/L 98-107 prxr=431) CO2 (BEAKER) (test 27 meq/L 22-29 xiqi=088) BLOOD UREA NITROGEN 17 mg/dL 7-21 (BEAKER) (test nhcu=782) CREATININE (BEAKER) (test 0.80 mg/dL 0.57-1.25 qgrd=133) GLUCOSE RANDOM (BEAKER) 152 mg/dL 70-105 (test weuf=041) CALCIUM (BEAKER) (test 9.2 mg/dL 8.4-10.2 nlpf=927) EGFR (BEAKER) (test 69 mL/min/1.73 sq m ESTIMATED GFR IS NOT imuy=5456) ACCURATE CREATININE CLEARANCE IN PREDICTING GLOMERULAR FILTRATION RATE. ESTIMATED GFR IS NOT APPLICABLE FOR DIALYSIS PATIENTS. C-REACTIVE [id number] 00:17:00 Test Item Value Reference Range Comments C-REACTIVE PROTEIN (BEAKER) (test csca=366) 0.55 mg/dL 0.00-0.50 PROTHROMBIN [id number] 00:07:00 Test Item Value Reference Range Comments PROTIME (BEAKER) (test pazu=042) 15.6 seconds 11.7-14.7 INR (BEAKER) (test sjrs=525) 1.3 <=5.9 RECOMMENDED COUMADIN/WARFARIN INR THERAPY RANGESSTANDARD DOSE: 2.0 - 3.0 Includes: PROPHYLAXIS forvenous thrombosis, systemic embolization; TREATMENT for venous thrombosis and/or pulmonary embolus.HIGH RISK: Target INR is 2.5-3.5 for patients with mechanical heart valves.CBC W/PLT COUNT & AUTO [id number] 00:01:00 Test Item Value Reference Range Comments WHITE BLOOD CELL COUNT (BEAKER) (test dsop=034) 9.3 K/ L 3.5-10.5 RED BLOOD CELL COUNT (BEAKER) (test beer=335) 4.77 M/ L 3.93-5.22 HEMOGLOBIN (BEAKER) (test gmqc=211) 15.6 GM/DL 11.2-15.7 HEMATOCRIT (BEAKER) (test tglk=830) 45.4 % 34.1-44.9 MEAN CORPUSCULAR VOLUME (BEAKER) (test bugj=814) 95.2 fL 79.4-94.8 MEAN CORPUSCULAR HEMOGLOBIN (BEAKER) (test 32.7 pg 25.6-32.2 ntwb=061) MEAN CORPUSCULAR HEMOGLOBIN CONC (BEAKER) (test 34.4 GM/DL 32.2-35.5 prfu=548) RED CELL DISTRIBUTION WIDTH (BEAKER) (test 14.2 % 11.7-14.4 ydbq=927) PLATELET COUNT (BEAKER) (test ctee=261) 166 K/CU MM 150-450 MEAN PLATELET VOLUME (BEAKER) (test utga=333) 10.6 fL 9.4-12.3 NUCLEATED RED BLOOD CELLS (BEAKER) (test 0 /100 WBC 0-0 hmzn=502) NEUTROPHILS RELATIVE PERCENT (BEAKER) (test 64 % kxwk=604) LYMPHOCYTES RELATIVE PERCENT (BEAKER) (test 26 % ektn=317) MONOCYTES RELATIVE PERCENT (BEAKER) (test 8 % axyp=477) EOSINOPHILS RELATIVE PERCENT (BEAKER) (test 1 % zmrf=307) BASOPHILS RELATIVE PERCENT (BEAKER) (test 1 % abbn=745) NEUTROPHILS ABSOLUTE COUNT (BEAKER) (test 5.97 K/ L 1.56-6.13 etjm=542) LYMPHOCYTES ABSOLUTE COUNT (BEAKER) (test 2.41 K/ L 1.18-3.74 uaix=715) MONOCYTES ABSOLUTE COUNT (BEAKER) (test 0.77 K/ L 0.24-0.36 cklx=608) EOSINOPHILS ABSOLUTE COUNT (BEAKER) (test 0.07 K/ L 0.04-0.36 iutc=561) BASOPHILS ABSOLUTE COUNT (BEAKER) (test 0.05 K/ L 0.01-0.08 xbxl=960) IMMATURE GRANULOCYTES-RELATIVE PERCENT (BEAKER) 0 % 0-1 (test uger=4959)
[2018-04-15] MEDS ORDERED: PHENYLEPHRINE 0.5% NOSE 15ML NAS ONE (22:31)
[2018-04-15 23:53] LABS: Absolute Lymphocytes (CBC) 1.8 K/uL (0.7-4.9); Absolute Monocytes 1.1 K/uL (0.1-1.3); Absolute Neutrophil 6.5 K/uL (1.8-8.0); Basophils % 1.3 % (0-1.3); Eosinophils % 1.6 % (0-4.4); Hematocrit 41.1 % (36.0-45.0); Lymphocytes % 18.9 % (15.3-44.8); MCH 31.9 pg (27.0-35.0); MCV 94.8 fL (80-100); MPV 9.4 fL (7.6-11.3); RBC Red Blood Cell Count 4.34 M/uL (3.86-4.86)
[2018-04-15 23:57] LABS: Protime INR 2.64
--- NOTE | 2018-04-16 00:06 | ER ---
Nurse's Notes [facility] Name: Irene Bauer Age: 77 yrs Sex: Female : 1940 Arrival Date: 04/15/2018 Time: 22:06 Bed 19 Private MD: Mauri Banks Diagnosis: Epistaxis Presentation: 04/15 22:16 Presenting complaint: Patient states: that at 2100 her nose started to bleed and she fc cannot get it to stop. Transition of care: patient was not received from another setting of care. Onset of symptoms was April 15, 2018 at 21:00. Risk Assessment: Do you want to hurt yourself or someone else? Patient reports no desire to harm self or others. Initial Sepsis Screen: Does the patient meet any 2 criteria? No. Patient's initial sepsis screen is negative. Does the patient have a suspected source of infection? No. Patient's initial sepsis screen is negative. Care prior to arrival: None. 22:16 Method Of Arrival: Ambulatory fc 22:16 Acuity: ISELA 4 fc Triage Assessment: 22:22 General: Appears comfortable, slender, well groomed, Behavior is cooperative, fc appropriate for age, anxious. Pain: Denies pain. EENT: Nares with bleeding noted on left. Neuro: Level of Consciousness is awake, alert, obeys commands, Oriented to person, place, time, situation. Cardiovascular: Reports. Respiratory: No deficits noted. GI: No deficits noted. : No deficits noted. Derm: Skin is pink, warm \T\ dry. Musculoskeletal: Circulation, motion, and sensation intact. Capillary refill < 3 seconds, Range of motion: intact in all extremities. Historical: - Allergies: 22:20 NKA; fc - Home Meds: 22:20 Xarelto 15 mg oral tab daily [Active]; Toprol XL 50 mg oral Tb24 1 tab twice a day fc [Active]; Benicar HCT 40-25 mg Oral tab 1 tab once daily [Active]; Lasix 40 mg Oral tab 1 tab 2 times per day [Active]; potassium chloride 10 mEq Oral cpER 1 cap 2 times per day [Active]; atorvastatin 40 mg Oral tab 1 tab nightly [Active]; alphagan 5 ml nightly [Active]; Caltrate 600 + D 600 mg (1,500 mg)-800 unit Oral chew twice a day [Active]; - PMHx: 22:20 Atrial Fib; CHF; colon cancer; Hypertension; osteoarthritis of spine; Osteopenia; fc Osteoporosis; Glaucoma; Cataracts; nose bleeds; 22:23 TIA; fc - PSHx: 22:20 colon surgery; cataract surgery; Hysterectomy; L4-L5 fusion; fc - Immunization history:: Last tetanus immunization: up to date. - Social history:: Smoking status: Patient/guardian denies using tobacco. - Ebola Screening: : Patient negative for fever greater than or equal to 101.5 degrees Fahrenheit, and additional compatible Ebola Virus Disease symptoms Patient denies exposure to infectious person Patient denies travel to an Ebola-affected area in the 21 days before illness onset. Screenin:22 Abuse screen: Denies threats or abuse. Nutritional screening: No deficits noted. fc Tuberculosis screening: No symptoms or risk factors identified. Fall Risk None identified. Assessment: 22:30 General: Appears uncomfortable, Behavior is appropriate for age. Pain: Denies pain. lp1 Neuro: Level of Consciousness is awake, alert, obeys commands, Oriented to person, place, time, situation, Gait is steady. Cardiovascular: Patient's skin is warm and dry. Respiratory: Respiratory effort is even, unlabored. GI: No signs and/or symptoms were reported involving the gastrointestinal system. : No signs and/or symptoms were reported regarding the genitourinary system. EENT: Nares with bleeding noted on left. Derm: Skin is pink, warm \T\ dry. Musculoskeletal: Circulation, motion, and sensation intact. 23:30 Reassessment: Patient appears in no apparent distress at this time. Rhino-rocket in lp1 place by Dr. Carlin. Vital Signs: 22:20 BP 161 / 131; Pulse 109; Resp 20; Temp 98.0(O); Pulse Ox 97% on R/A; Weight 70.76 kg fc (R); Height 5 ft. 4 in. (162.56 cm) (R); Pain 0/10; 22:30 BP 149 / 112; Pulse 80; Resp 18; Pulse Ox 99% on R/A; lp1 22:52 BP 137 / 83; Pulse 85; Resp 18; Pulse Ox 96% on R/A; lp1 23:30 BP 142 / 85; Pulse 90; Resp 18; Pulse Ox 98% on R/A; lp1 04/16 00:09 BP 166 / 88; Pulse 92; Resp 18; Pulse Ox 98% on R/A; lp1 04/15 22:20 Body Mass Index 26.78 (70.76 kg, 162.56 cm) ED Course: 04/15 22:06 Patient arrived in ED. am2 22:06 Mauri Banks MD is Private Physician. am2 22:17 Triage completed. 22:21 Arm band placed on Patient placed in an exam room, on a stretcher. 22:22 Santiago Carlin MD is Attending Physician. tw4 22:22 Patient has correct armband on for positive identification. Bed in low position. Call light in reach. 22:41 Paola Pereyra, RN is Primary Nurse. lp1 22:55 Inserted saline lock: 20 gauge in right forearm, using aseptic technique. Blood lp1 collected. 04/16 00:04 Mauri Banks MD is Referral Physician. tw4 00:08 No provider procedures requiring assistance completed. lp1 00:32 IV discontinued, No redness/swelling at site. Pressure dressing applied. lp1 Administered Medications: No medications were administered Outcome: 00:05 Discharge ordered by . tw4 00:32 Discharged to home ambulatory, with significant other. lp1 00:32 Condition: good 00:32 Discharge instructions given to patient, significant other, Instructed on discharge instructions, follow up and referral plans. Demonstrated understanding of instructions, follow-up care. 00:33 Patient left the ED. lp1 Signatures: Khushboo Rodriguez RN RN Paola Pereyra, RONEN RN lp1 Hailey Vazquez am2 Santiago Carlin MD MD tw4
--- NOTE | 2018-04-16 00:06 | EDPHYS ---
Physician Documentation [facility] Name: Irene Bauer Age: 77 yrs Sex: Female : 1940 Arrival Date: 04/15/2018 Time: 22:06 Bed 19 Private MD: Mauri Banks ED Physician Santiago Carlin HPI: 04/15 22:22 This 77 yrs old Female presents to ER via Ambulatory with complaints of Nose tw4 Bleed. 22:22 The patient presents with a nose bleed. Onset: The symptoms/episode began/occurred tw4 today. Modifying factors: The symptoms are alleviated by nothing. the symptoms are aggravated by nothing. Historical: - Allergies: 22:20 NKA; fc - Home Meds: 22:20 Xarelto 15 mg oral tab daily [Active]; Toprol XL 50 mg oral Tb24 1 tab twice a day fc [Active]; Benicar HCT 40-25 mg Oral tab 1 tab once daily [Active]; Lasix 40 mg Oral tab 1 tab 2 times per day [Active]; potassium chloride 10 mEq Oral cpER 1 cap 2 times per day [Active]; atorvastatin 40 mg Oral tab 1 tab nightly [Active]; alphagan 5 ml nightly [Active]; Caltrate 600 + D 600 mg (1,500 mg)-800 unit Oral chew twice a day [Active]; - PMHx: 22:20 Atrial Fib; CHF; colon cancer; Hypertension; osteoarthritis of spine; Osteopenia; fc Osteoporosis; Glaucoma; Cataracts; nose bleeds; 22:23 TIA; fc - PSHx: 22:20 colon surgery; cataract surgery; Hysterectomy; L4-L5 fusion; fc - Immunization history:: Last tetanus immunization: up to date. - Social history:: Smoking status: Patient/guardian denies using tobacco. - Ebola Screening: : Patient negative for fever greater than or equal to 101.5 degrees Fahrenheit, and additional compatible Ebola Virus Disease symptoms Patient denies exposure to infectious person Patient denies travel to an Ebola-affected area in the 21 days before illness onset. ROS: 23:34 Constitutional: Negative for fever, chills, and weight loss, Cardiovascular: Negative tw4 for chest pain, palpitations, and edema, Respiratory: Negative for shortness of breath, cough, wheezing, and pleuritic chest pain, Abdomen/GI: Negative for abdominal pain, nausea, vomiting, diarrhea, and constipation, Back: Negative for injury and pain. 23:34 MS/Extremity: Negative for injury and deformity. 23:34 ENT: Positive for nose bleed, Negative for injury or acute deformity, drainage from ear(s), ear pain, foreign body sensation, Gum pain Exam: 23:34 Constitutional: This is a well developed, well nourished patient who is awake, alert, tw4 and in no acute distress. Head/Face: Normocephalic, atraumatic. Chest/axilla: Normal chest wall appearance and motion. Nontender with no deformity. No lesions are appreciated. Cardiovascular: Regular rate and rhythm with a normal S1 and S2. No gallops, murmurs, or rubs. Normal PMI, no JVD. No pulse deficits. Respiratory: Lungs have equal breath sounds bilaterally, clear to auscultation and percussion. No rales, rhonchi or wheezes noted. No increased work of breathing, no retractions or nasal flaring. Abdomen/GI: Soft, non-tender, with normal bowel sounds. No distension or tympany. No guarding or rebound. No evidence of tenderness throughout. 23:34 ENT: External ear(s): are unremarkable, Ear canal(s): are normal, Nose: is normal, bleeding, is seen from the left nare, and is minimal, clotted blood, in left nare. Vital Signs: 22:20 BP 161 / 131; Pulse 109; Resp 20; Temp 98.0(O); Pulse Ox 97% on R/A; Weight 70.76 kg fc (R); Height 5 ft. 4 in. (162.56 cm) (R); Pain 0/10; 22:30 BP 149 / 112; Pulse 80; Resp 18; Pulse Ox 99% on R/A; lp1 22:52 BP 137 / 83; Pulse 85; Resp 18; Pulse Ox 96% on R/A; lp1 23:30 BP 142 / 85; Pulse 90; Resp 18; Pulse Ox 98% on R/A; lp1 04/16 00:09 BP 166 / 88; Pulse 92; Resp 18; Pulse Ox 98% on R/A; lp1 04/15 22:20 Body Mass Index 26.78 (70.76 kg, 162.56 cm) Procedures: 04/15 23:34 Epistaxis treatment: A moderate amount of bleeding noted from left nare. Treated using tw4 Oxymetazoline sprays, direct pressure, anterior packing, nasal tampon. MDM: 22:22 Patient medically screened. tw4 23:34 Differential diagnosis: epistaxis r/t trauma, spontaneous epistaxis. Data reviewed: tw4 vital signs, nurses notes. Counseling: I had a detailed discussion with the patient and/or guardian regarding: the historical points, exam findings, and any diagnostic results supporting the discharge/admit diagnosis. Special discussion: I discussed with the patient/guardian in detail that at this point there is no indication for admission to the hospital. It is understood, however, that if the symptoms persist or worsen the patient needs to return immediately for re-evaluation. 04/15 22:23 Order name: Basic Metabolic Panel tw4 04/15 22:23 Order name: CBC with Diff; Complete Time: 00:03 tw4 04/15 22:23 Order name: Ckmb tw 04/15 22:23 Order name: CPK tw 04/15 22:23 Order name: LFT's tw 04/15 22:23 Order name: Magnesium tw 04/15 22:23 Order name: PT-INR; Complete Time: 00:03 tw4 04/15 22:23 Order name: Ptt, Activated; Complete Time: 00:03 tw4 04/15 22:23 Order name: Cardiac monitoring; Complete Time: 22:42 tw4 04/15 22:23 Order name: IV Saline Lock; Complete Time: 22:51 tw4 04/15 22:23 Order name: Labs collected and sent; Complete Time: 22:51 tw4 04/15 22:23 Order name: O2 Per Protocol; Complete Time: 22:42 tw4 04/15 22:23 Order name: O2 Sat Monitoring; Complete Time: 22:42 tw4 Administered Medications: No medications were administered Disposition: 04/16/18 00:05 Discharged to Home. Impression: Epistaxis. - Condition is Stable. - Discharge Instructions: Nosebleed, Nosebleed, Yqhu-sv-Xcym. - Medication Reconciliation Form, Thank You Letter, Antibiotic Education, Prescription Opioid Use form. - Follow up: Mauri Banks MD; When: As needed; Reason: Recheck today's complaints, Re-evaluation by your physician. - Problem is new. - Symptoms have improved. Signatures: Dispatcher [employer] EDMS Khushboo Rodriguez, RN RN Paola Pereyra RN RN lp1 Santiago Carlin MD MD tw4 Corrections: (The following items were deleted from the chart) 04/16 00:33 00:05 04/16/2018 00:05 Discharged to Home. Impression: Epistaxis. Condition is Stable. lp1 Forms are Medication Reconciliation Form, Thank You Letter, Antibiotic Education, Prescription Opioid Use. Follow up: Mauri Banks; When: As needed; Reason: Recheck today's complaints, Re-evaluation by your physician. Problem is new. Symptoms have improved. tw4
[2018-04-16 00:15] LABS: Albumin 4.2 g/dL (3.4-5.0); Bilirubin Direct 0.3 mg/dL (0-0.2); Bilirubin Total 0.9 mg/dL (0.2-1.0); Magnesium 2.4 mg/dL (1.8-2.4); Potassium 3.9 mmol/L (3.5-5.1); Protein, Total 7.4 g/dL (6.4-8.2)
[2018-04-16 00:42] VITALS: TEMP 98
[2018-04-16 00:44] VITALS: O2SAT 98
[2018-04-16 00:45] VITALS: BP 166/88
== END 2018-04-16 00:33 | disposition home or self-care (01) ==
LOC: ER 22:06
PROC: 2Y41X5Z Packing of Nasal Region using Packing Material (ICD-10-PCS; principal; 2018-04-16)
DX: R04.0 Epistaxis (principal); I48.91 Unspecified atrial fibrillation; Z79.01 Long term (current) use of anticoagulants; I50.9 Heart failure, unspecified; Z85.038 Personal history of other malignant neoplasm of large intestine; I10 Essential (primary) hypertension
CPT/HCPCS: 30901; 36415; 80048; 80076; 82550; 82553; 83735; 85025; 85610; 85730; 99283

== ENCOUNTER 2018-04-17 10:04 | Emergency (ER) | payer OTHER ==
--- OUTSIDE RECORDS SUMMARY | 2018-04-17 10:08 | XMS REPORT | Clinical Summary ---
:1940 [address] [facility] Address [address] [place] [address] Phone Care Team Providers Name Role Phone [...] accident (CVA), [place], unspecified mechanism MD Yane ([facility]) (Primary Dx);Chronic atrial fibrillation (HCC);Essential hypertension after 04/16/2017 Social History Tobacco Use Types Packs/Day Years [...] contrast (2016 9:42 PM) Specimen Performing Laboratory Kar[employer] Snap Narrative FINAL REPORT CT Head without contrast [...] MD Report Verified Date/Time:05/16/2017 21:51:07 Reading Location: [facility] Radiology Reading Room Procedure Note Interface, External [...] Report Verified Date/Time: 05/16/2017 21:51:07 Reading Location: [facility] Radiology Reading Room carotid (05/16/2017 9:42 PM) Specimen Performing Laboratory [employer] RIS Narrative FINAL REPORT CT angiogram of [...] MD Report Verified Date/Time:05/17/2017 09:39:43 Reading Location: [address] Neuro Reading Room Procedure Note Interface, [...] Report Verified Date/Time: 05/17/2017 09:39:43 Reading Location: [address] Neuro Reading Room brain (05/16/2017 9:42 PM) Specimen Performing Laboratory [employer] RIS Narrative FINAL REPORT CT angiogram of [...] MD Report Verified Date/Time:05/17/2017 09:39:43 Reading Location: [facility] C013V Neuro Reading Room Procedure Note Interface, [...] Report Verified Date/Time: 05/17/2017 09:39:43 Reading Location: [address] Neuro Reading Room Transthoracic 2D echo w/ doppler (cw/pw/color) (05/16/2017 7:46 AM) Component Value Ref Range Ejection Fraction LV EF BP 55 % Specimen Performing Laboratory DIGISONICS [facility] Echocardiography Laboratory [address] [place] [id number] Voice:[phone] Transthoracic Echocardiogram Pat.Name:Zion CLEMENTS.ID:[id number] St.Date: 05/16/2017Refer.MD:JOMAR PRADO Exam Time: 7:46:00 AMStudy Type:Echo Complete Height:64inWeight: 142lb BSA: 1.69 m2 DOBAge:1940,76Y Sex: FEMALEBP:162/81 HR:66 bpmSonogrphr: Natalia Alberto RDCS Pat. Stat.:Inpatient Room:[facility] CPT - 4: 23950 Reason for Study:Sustained or Nonsustained Atrial Fib, [...] and systolic function are within normal limits. Xzwf-nc-okcajldp mitral regurgitation. Vaomcakb-iy-kwokvv tricuspid regurgitation. Estimated peak systolic PA pressure [...] aortic regurgitation. Mild AoV cusp thickening. MV: Nlqa-aw-cwnaempg mitral regurgitation. Mild MV leaflet thickening. TV: Oulvfiil-ue-xlqcwz tricuspid regurgitation. Estimated peak systolicPA pressure is [...] ml/m2 LA Area 33.3 cm2(8.8-23.4)* Parasternal [place] Ao An 1.82 cm (1.4-2.6) LV%fs 43.1 [...] - 05/16/2017 1:08 PM CDT Echocardiography Laboratory [address] [place] [id number] Voice: [phone] Transthoracic Echocardiogram Pat.Name: IRENE CLEMENTS Pat.ID: [id number] .Date: 05/16/2017 Refer.MD: JOMAR PRADO Exam Time: 7:46:00 AM Study Type:Echo Complete Height: 64in Weight: 142lb BSA: 1.69 m2 Age: 3 1940,76Y Sex: FEMALE BP: 162/81 HR: 66 bpm Sonogrphr: Natalia Alberto RDCS Pat. Stat.:Inpatient Room: [facility] CPT - 4: 97334 Reason for Study:Sustained or Nonsustained Atrial Fib, [...] and systolic function are within normal limits. Yjvf-hu-xklhchds mitral regurgitation. Cufkbsuj-ad-oiqmgs tricuspid regurgitation. Estimated peak systolic PA pressure [...] aortic regurgitation. Mild AoV cusp thickening. MV: Webx-me-vohscbqu mitral regurgitation. Mild MV leaflet thickening. TV: Gspktstj-le-wgjxxi tricuspid regurgitation. Estimated peak systolic PA pressure [...] LA Area 33.3 cm2 (8.8-23.4)* Parasternal [place] Ao An 1.82 cm (1.4-2.6) LV%fs 43.1 [...] - 2.6 mg/dL Specimen Performing Laboratory Blood [address] [address] Basic Metabolic Panel (05/16/2017 6:27 AM)Only the [...] FOR DIALYSIS PATIENTS. Specimen Performing Laboratory Blood [address] [address] ECG 12 lead (05/16/2017 5:45 AM) Specimen Performing Laboratory GE MUSE Narrative Ventricular Rate 65 BPM Atrial Rate 72 BPM QRS Duration 84 ms Q-T Interval 382 ms QTC Calculation(Bazett) 397 ms R [place] -21 degrees T [place] -50 degrees Atrial fibrillation with premature ventricular or aberrantly conducted complexes Possible Anterior infarct , age undetermined Abnormal ECG Confirmed by MD Drake Roberto ([id number]) on 05/16/2017 9:34:21 AM Procedure Note Interface, External Ris In - 05/16/2017 9:34 AM CDT Ventricular Rate 65 BPM Atrial Rate 72 BPM QRS Duration 84 ms Q-T Interval 382 ms QTC Calculation(Bazett) 397 ms R [place] -21 degrees T [place] -50 degrees Atrial fibrillation with premature ventricular or aberrantly conducted complexes Possible Anterior infarct , age undetermined Abnormal ECG Confirmed by MD Drake Roberto ([id number]) on 05/16/2017 9:34:21 AM CBC (Hemogram only) [...] 0 /100 WBC Specimen Performing Laboratory Blood [address] [address] Comprehensive metabolic panel (05/16/2017 4:49 AM) Component [...] FOR DIALYSIS PATIENTS. Specimen Performing Laboratory Blood [address] [address] Fasting lipid panel (05/15/2017 5:54 AM) Component Value Ref Range Triglycerides 223Comment: Specimen slightly hemolyzed mg/dL Cholesterol 176Comment: Specimen slightly hemolyzed mg/dL HDL 42 mg/dL LDL Calculated 89 mg/dL Specimen Performing Laboratory Blood [address] [address] Narrative Triglyceride Reference Range: Low Risk <150 Cutufwmiaq078-636 High Risk 200-499 Very High Risk>=500 Cholesterol Reference Range: Low Risk <200 Jkskepwvkz574-538 High Risk>240 HDL Cholesterol Reference Range: Low Risk >=60 High Risk <40 LDL Cholesterol Reference Range: Optimal<100 Near Studycm413-486 Hzsriomgnj528-512 Ybnu118-357 Very High >=190 Fasting Vitamin B12 and Folate (05/14/2017 11:43 PM) Component Value Ref Range Vitamin B12 514 213 - 816 pg/mL Folate >40.0 >=7.0 ng/mL Specimen Performing Laboratory Blood [address] [address] Narrative Effective 08/31/2014: Folate Reference Range Change New: >=7.0Previous: >=5.4 TSH/Free T4 If Indicated (05/14/2017 11:43 PM) Component Value Ref Range TSH 2.55 0.35 - 4.94 uIU/mL Specimen Performing Laboratory Blood [address] [address] C-Reactive Protein (05/14/2017 11:43 PM) Component Value Ref Range CRP 0.55 (H) 0.00 - 0.50 mg/dL Specimen Performing Laboratory Blood [address] [address] CBC with platelet count + automated diff [...] 0 - 1 % Specimen Performing Laboratory [address] [address] Troponin I (05/14/2017 11:43 PM) Component Value Ref Range Troponin I 0.01 0.00 - 0.03 ng/mL Specimen Performing Laboratory [address] [address] Narrative Effective 08/31/2014: Reference Range Change New: [...] Range RPR Nonreactive Nonreactive Specimen Performing Laboratory [address] [address] Sedimentation rate (05/14/2017 11:43 PM) Component Value Ref Range Sed Rate 6 0 - 40 mm/HR Specimen Performing Laboratory [address] [address] Prothrombin time/INR (05/14/2017 11:43 PM) Component Value Ref Range Protime 15.6 (H) 11.7 - 14.7 seconds INR 1.3 <=5.9 Specimen Performing Laboratory Blood [facility] [address] [address] Narrative RECOMMENDED COUMADIN/WARFARIN INR THERAPY RANGES STANDARD [...] Status --------- ------ CBC with platelet count ...[[id number]]AbnormalFinal result Please view results for these tests on the individual orders. Homocysteine (05/14/2017 11:43 PM) Component Value Ref Range Homocysteine 8.5 5.1 - 15.4 umol/L Specimen Performing Laboratory Blood [address] [address] Hemoglobin A1c (05/14/2017 11:43 PM) Component Value Ref Range Hemoglobin A1C 6.2 (H) 4.3 - 6.1 % Specimen Performing Laboratory Blood [address] [address] Hepatic function panel (05/14/2017 11:43 PM) Component Value Ref Range Protein, Total 6.7 6.0 - 8.3 gm/dL Albumin 4.0 3.5 - 5.0 g/dL Total Bilirubin 1.3 (H) 0.2 - 1.2 mg/dL Bilirubin, Direct 0.4 0.1 - 0.5 mg/dL Alkaline Phosphatase 56 40 - 150 U/L AST 30 5 - 34 U/L ALT 31 6 - 55 U/L Specimen Performing Laboratory Blood [address] [address] Urinalysis w/Microscopic (05/14/2017 11:14 PM) Component Value Ref Range Color, UA Light Yellow Clarity, UA Clear Specific [place], UA 1.006 1.001 - 1.035 pH, UA [...] Performing Laboratory Urine - Urine, Voided [facility] [address] [address] after 04/16/2017
--- OUTSIDE RECORDS SUMMARY | 2018-04-17 10:09 | XMS REPORT ---
:1940 Author Organization [facility] Address [address] [place] [id number] Care Team Providers Name Role Phone YAKOV [...] Reference Range Comments HEMOGLOBIN A1C (BEAKER) (test mcsb=755) 6.2 % 4.3-6.1 [id number] 07:10:00 Test Item Value Reference Range Comments MAGNESIUM (BEAKER) (test jqlw=156) 1.9 mg/dL 1.6-2.6 BASIC METABOLIC [id number] 07:10:00 Test Item Value Reference Range Comments SODIUM (BEAKER) (test 133 meq/L 136-145 pcsi=476) POTASSIUM (BEAKER) (test 3.7 meq/L 3.5-5.1 vgtz=779) CHLORIDE (BEAKER) (test 101 meq/L 98-107 sknr=080) CO2 (BEAKER) (test 24 meq/L 22-29 fotv=208) BLOOD UREA NITROGEN 20 mg/dL 7-21 (BEAKER) (test pvdp=774) CREATININE (BEAKER) (test 0.69 mg/dL 0.57-1.25 rotu=561) GLUCOSE RANDOM (BEAKER) 133 mg/dL 70-105 (test iexa=570) CALCIUM (BEAKER) (test 8.6 mg/dL 8.4-10.2 lxdn=030) EGFR (BEAKER) (test 82 mL/min/1.73 sq m ESTIMATED GFR IS NOT xedb=8256) ACCURATE CREATININE CLEARANCE IN PREDICTING GLOMERULAR FILTRATION RATE. ESTIMATED GFR IS NOT APPLICABLE FOR DIALYSIS PATIENTS. CBC (HEMOGRAM ONLY)2017-05-16 05:48:00 Test Item Value Reference Range Comments WHITE BLOOD CELL COUNT (BEAKER) (test fudu=185) 7.2 K/ L 3.5-10.5 RED BLOOD CELL COUNT (BEAKER) (test dhzp=669) 4.72 M/ L 3.93-5.22 HEMOGLOBIN (BEAKER) (test wylb=348) 15.3 GM/DL 11.2-15.7 HEMATOCRIT (BEAKER) (test yoik=119) 45.9 % 34.1-44.9 MEAN CORPUSCULAR VOLUME (BEAKER) (test vgyh=816) 97.2 fL 79.4-94.8 MEAN CORPUSCULAR HEMOGLOBIN (BEAKER) (test 32.4 pg 25.6-32.2 zeus=026) MEAN CORPUSCULAR HEMOGLOBIN CONC (BEAKER) (test 33.3 GM/DL 32.2-35.5 pqyh=968) RED CELL DISTRIBUTION WIDTH (BEAKER) (test 14.5 % 11.7-14.4 wbrw=689) PLATELET COUNT (BEAKER) (test latq=417) 170 K/CU MM 150-450 MEAN PLATELET VOLUME (BEAKER) (test wuxx=853) 10.7 fL 9.4-12.3 NUCLEATED RED BLOOD CELLS (BEAKER) (test 0 /100 WBC 0-0 flcs=355) [id number] 05:45:00 Test Item Value Reference Range Comments MAGNESIUM (BEAKER) (test 2.3 mg/dL 1.6-2.6 Specimen moderately hemolyzed qkbt=516) COMPREHENSIVE METABOLIC [id number] 05:45:00 Test Item Value Reference Range Comments TOTAL PROTEIN (BEAKER) 6.7 gm/dL 6.0-8.3 Specimen moderately (test iicn=127) hemolyzed ALBUMIN (BEAKER) (test 3.7 g/dL 3.5-5.0 Specimen moderately kwzl=0693) hemolyzed ALKALINE PHOSPHATASE 67 U/L 40-150 (BEAKER) (test oivz=174) BILIRUBIN TOTAL (BEAKER) 1.1 mg/dL 0.2-1.2 Specimen moderately (test tyos=720) hemolyzed SODIUM (BEAKER) (test 129 meq/L 136-145 lbvb=265) POTASSIUM (BEAKER) (test 5.2 meq/L 3.5-5.1 Specimen moderately sgdz=070) hemolyzed CHLORIDE (BEAKER) (test 101 meq/L 98-107 etrm=178) CO2 (BEAKER) (test 17 meq/L 22-29 gtxs=510) BLOOD UREA NITROGEN 20 mg/dL 7-21 (BEAKER) (test ntlb=323) CREATININE (BEAKER) (test 0.74 mg/dL 0.57-1.25 Specimen moderately ycel=565) hemolyzed GLUCOSE RANDOM (BEAKER) 125 mg/dL 70-105 (test sifc=397) CALCIUM (BEAKER) (test 8.6 mg/dL 8.4-10.2 xepx=562) AST (SGOT) (BEAKER) (test 39 U/L 5-34 Specimen moderately dzll=036) hemolyzed ALT (SGPT) (BEAKER) (test 28 U/L 6-55 Specimen moderately vnlm=919) hemolyzed EGFR (BEAKER) (test 76 mL/min/1.73 sq m ESTIMATED GFR IS NOT vdrj=7865) ACCURATE CREATININE CLEARANCE IN PREDICTING GLOMERULAR FILTRATION RATE. ESTIMATED GFR IS NOT APPLICABLE FOR DIALYSIS PATIENTS. [id number] 11:50:00 Test Item Value Reference Range Comments RPR SCREEN (BEAKER) (test bdcj=269) Nonreactive Nonreactive BASIC METABOLIC [id number] 06:28:00 Test Item Value Reference Range Comments SODIUM (BEAKER) (test 134 meq/L 136-145 efyv=672) POTASSIUM (BEAKER) (test 3.7 meq/L 3.5-5.1 Specimen slightly skqo=169) hemolyzed CHLORIDE (BEAKER) (test 97 meq/L 98-107 this=862) CO2 (BEAKER) (test 28 meq/L 22-29 yshz=145) BLOOD UREA NITROGEN 16 mg/dL 7-21 (BEAKER) (test puuh=699) CREATININE (BEAKER) (test 0.70 mg/dL 0.57-1.25 Specimen slightly bope=347) hemolyzed GLUCOSE RANDOM (BEAKER) 124 mg/dL 70-105 (test mhbc=080) CALCIUM (BEAKER) (test 9.0 mg/dL 8.4-10.2 jsdu=156) EGFR (BEAKER) (test 81 mL/min/1.73 sq m ESTIMATED GFR IS NOT hkel=3868) ACCURATE CREATININE CLEARANCE IN PREDICTING GLOMERULAR FILTRATION RATE. ESTIMATED GFR IS NOT APPLICABLE FOR DIALYSIS PATIENTS. FastingLIPID [id number] 06:28:00 Test Item Value Reference Range Comments TRIGLYCERIDES (BEAKER) (test 223 mg/dL Specimen slightly hemolyzed ebio=494) CHOLESTEROL (BEAKER) (test 176 mg/dL Specimen slightly hemolyzed kazn=783) HDL CHOLESTEROL (BEAKER) (test 42 mg/dL dwat=034) LDL CHOLESTEROL CALCULATED 89 mg/dL (BEAKER) (test uron=841) Triglyceride Reference Range: Low Risk <150 Borderline 150- 199 High Risk 200-499 Very High Risk >=500Cholesterol Reference Range: Low Risk <200 Borderline 200-239 High Risk > 240HDL Cholesterol Reference Range: Low Risk >=60 High Risk <40LDL Cholesterol Reference Range: Optimal <100 Near Optimal 100-129 Borderline 130-159 High 160-189 Very High >=190 FastingVITAMIN B12 AND [id number] 04:10:00 Test Item Value Reference Range Comments VITAMIN B12 (BEAKER) (test uaom=687) 514 pg/mL 213-816 FOLATE (BEAKER) (test gtys=905) > ng/mL >=7.0 Effective 08/31/2014: Folate Reference Range ChangeNew: >=7.0 Previous: & gt;=5.4TSH/FREE T4 IF [id number] 02:52:00 Test Item Value Reference Range Comments THYROID STIMULATING HORMONE (BEAKER) (test 2.55 uIU/mL 0.35-4.94 jezv=800) SEDIMENTATION [id number] 01:10:00 Test Item Value Reference Range Comments SEDIMENTATION RATE, ERYTHROCYTE (BEAKER) (test 6 mm/HR 0-40 bpla=536) [id number] 00:35:00 Test Item Value Reference Range Comments HOMOCYSTEINE (BEAKER) (test uaje=040) 8.5 umol/L 5.1-15.4 URINALYSIS W/ [id number] 00:30:00 Test Item Value Reference Range Comments COLOR (BEAKER) (test irbw=142) Light Yellow CLARITY (BEAKER) (test mvbo=920) Clear SPECIFIC GRAVITY UA (BEAKER) (test gyhp=489) 1.006 1.001-1.035 PH UA (BEAKER) (test ylfv=512) 7.5 5.0-8.0 PROTEIN UA (BEAKER) (test pafi=720) 20 mg/dL Negative GLUCOSE UA (BEAKER) (test wwqm=472) Negative Negative KETONES UA (BEAKER) (test sybe=943) Negative Negative BILIRUBIN UA (BEAKER) (test tuvz=631) Negative Negative BLOOD UA (BEAKER) (test hkip=102) Negative Negative NITRITE UA (BEAKER) (test ckpe=304) Negative Negative LEUKOCYTE ESTERASE UA (BEAKER) (test scyg=593) Negative Negative UROBILINOGEN UA (BEAKER) (test awzu=074) 0.2 mg/dL 0.2-1.0 RBC UA (BEAKER) (test fkhc=536) < /HPF WBC UA (BEAKER) (test qcot=338) < /HPF SQUAMOUS EPITHELIAL (BEAKER) (test hter=708) 1 /HPF SOURCE(BEAKER) (test gwmb=1029) Urine, Voided TROPONIN [id number] 00:23:00 Test Item Value Reference Range Comments TROPONIN I (BEAKER) (test iqcn=541) 0.01 ng/mL 0.00-0.03 Effective 08/31/2014: Reference Range [...] acute neurological disease, and persistent tachyarrhythmia.HEPATIC FUNCTION [id number] 00:17:00 Test Item Value Reference Range Comments TOTAL PROTEIN (BEAKER) (test xkhc=056) 6.7 gm/dL 6.0-8.3 ALBUMIN (BEAKER) (test qhsr=8647) 4.0 g/dL 3.5-5.0 BILIRUBIN TOTAL (BEAKER) (test lbhe=668) 1.3 mg/dL 0.2-1.2 BILIRUBIN DIRECT (BEAKER) (test wyzg=170) 0.4 mg/dL 0.1-0.5 ALKALINE PHOSPHATASE (BEAKER) (test kuya=261) 56 U/L 40-150 AST (SGOT) (BEAKER) (test dfpf=191) 30 U/L 5-34 ALT (SGPT) (BEAKER) (test ahhl=989) 31 U/L 6-55 BASIC METABOLIC [id number] 00:17:00 Test Item Value Reference Range Comments SODIUM (BEAKER) (test 132 meq/L 136-145 unpq=524) POTASSIUM (BEAKER) (test 3.4 meq/L 3.5-5.1 ugow=916) CHLORIDE (BEAKER) (test 93 meq/L 98-107 tveg=932) CO2 (BEAKER) (test 27 meq/L 22-29 hidg=669) BLOOD UREA NITROGEN 17 mg/dL 7-21 (BEAKER) (test ezks=056) CREATININE (BEAKER) (test 0.80 mg/dL 0.57-1.25 fxmi=779) GLUCOSE RANDOM (BEAKER) 152 mg/dL 70-105 (test wqim=041) CALCIUM (BEAKER) (test 9.2 mg/dL 8.4-10.2 kpsd=001) EGFR (BEAKER) (test 69 mL/min/1.73 sq m ESTIMATED GFR IS NOT cdmh=7039) ACCURATE CREATININE CLEARANCE IN PREDICTING GLOMERULAR FILTRATION RATE. ESTIMATED GFR IS NOT APPLICABLE FOR DIALYSIS PATIENTS. C-REACTIVE [id number] 00:17:00 Test Item Value Reference Range Comments C-REACTIVE PROTEIN (BEAKER) (test lofs=709) 0.55 mg/dL 0.00-0.50 PROTHROMBIN [id number] 00:07:00 Test Item Value Reference Range Comments PROTIME (BEAKER) (test kmjb=630) 15.6 seconds 11.7-14.7 INR (BEAKER) (test zzvk=615) 1.3 <=5.9 RECOMMENDED COUMADIN/WARFARIN INR THERAPY RANGESSTANDARD DOSE: 2.0 - 3.0 Includes: PROPHYLAXIS forvenous thrombosis, systemic embolization; TREATMENT for venous thrombosis and/or pulmonary embolus.HIGH RISK: Target INR is 2.5-3.5 for patients with mechanical heart valves.CBC W/PLT COUNT & AUTO [id number] 00:01:00 Test Item Value Reference Range Comments WHITE BLOOD CELL COUNT (BEAKER) (test sqjw=292) 9.3 K/ L 3.5-10.5 RED BLOOD CELL COUNT (BEAKER) (test aynn=198) 4.77 M/ L 3.93-5.22 HEMOGLOBIN (BEAKER) (test onhn=467) 15.6 GM/DL 11.2-15.7 HEMATOCRIT (BEAKER) (test xuyn=016) 45.4 % 34.1-44.9 MEAN CORPUSCULAR VOLUME (BEAKER) (test auyo=682) 95.2 fL 79.4-94.8 MEAN CORPUSCULAR HEMOGLOBIN (BEAKER) (test 32.7 pg 25.6-32.2 nbxd=499) MEAN CORPUSCULAR HEMOGLOBIN CONC (BEAKER) (test 34.4 GM/DL 32.2-35.5 fimo=003) RED CELL DISTRIBUTION WIDTH (BEAKER) (test 14.2 % 11.7-14.4 byxl=189) PLATELET COUNT (BEAKER) (test gnrj=258) 166 K/CU MM 150-450 MEAN PLATELET VOLUME (BEAKER) (test frnj=443) 10.6 fL 9.4-12.3 NUCLEATED RED BLOOD CELLS (BEAKER) (test 0 /100 WBC 0-0 zalf=167) NEUTROPHILS RELATIVE PERCENT (BEAKER) (test 64 % ntxt=752) LYMPHOCYTES RELATIVE PERCENT (BEAKER) (test 26 % lvhz=362) MONOCYTES RELATIVE PERCENT (BEAKER) (test 8 % bdgv=195) EOSINOPHILS RELATIVE PERCENT (BEAKER) (test 1 % zeao=274) BASOPHILS RELATIVE PERCENT (BEAKER) (test 1 % zxzv=585) NEUTROPHILS ABSOLUTE COUNT (BEAKER) (test 5.97 K/ L 1.56-6.13 tzwc=227) LYMPHOCYTES ABSOLUTE COUNT (BEAKER) (test 2.41 K/ L 1.18-3.74 wmjs=444) MONOCYTES ABSOLUTE COUNT (BEAKER) (test 0.77 K/ L 0.24-0.36 puog=805) EOSINOPHILS ABSOLUTE COUNT (BEAKER) (test 0.07 K/ L 0.04-0.36 wgfn=221) BASOPHILS ABSOLUTE COUNT (BEAKER) (test 0.05 K/ L 0.01-0.08 icdq=919) IMMATURE GRANULOCYTES-RELATIVE PERCENT (BEAKER) 0 % 0-1 (test wxdd=2622)
--- NOTE | 2018-04-17 11:10 | RAD REPORT ---
EXAM DESCRIPTION: Manjinder Single View04/17/2018 11:04 am CLINICAL HISTORY: sob COMPARISON: December 2017 FINDINGS: The lungs appear clear of acute infiltrate. The heart is mildly enlarged IMPRESSION: No acute abnormalities displayed
[2018-04-17 11:28] LABS: Absolute Lymphocytes (CBC) 1.4 K/uL (0.7-4.9); Absolute Neutrophil 7.5 K/uL (1.8-8.0); Basophils % 0.4 % (0-1.3); Eosinophils % 0.4 % (0-4.4); Hematocrit 39.9 % (36.0-45.0); Lymphocytes % 14.1 % (15.3-44.8); MCH 32.8 pg (27.0-35.0); MCV 95.6 fL (80-100); MPV 8.6 fL (7.6-11.3); Monocytes % 9.8 % (3.3-12.3); RBC Red Blood Cell Count 4.18 M/uL (3.86-4.86)
[2018-04-17] MEDS ORDERED: FUROSEMIDE 40 MG/4 ML VIAL ONE (11:37)
[2018-04-17 11:39] LABS: Protime INR 1.24
[2018-04-17 12:03] LABS: Magnesium 2.2 mg/dL (1.8-2.4); Potassium 3.6 mmol/L (3.5-5.1)
--- NOTE | 2018-04-17 13:12 | ER ---
Nurse's Notes [facility] Name: Irene Bauer Age: 77 yrs Sex: Female : 1940 Arrival Date: 04/17/2018 Time: 10:07 Bed 13 Private MD: Mauri Banks Diagnosis: Epistaxis Presentation: 04/17 10:16 Presenting complaint: Patient states: Shortness of breath and nose bleed that started sg this morning, the nose is just seeping blood back into my throat and Im trying to spit it out, sent me here today to get evaluated by the ER doctor. Transition of care: patient was not received from another setting of care. Onset of symptoms was April 17, 2018. Risk Assessment: Do you want to hurt yourself or someone else? Patient reports no desire to harm self or others. Initial Sepsis Screen: Does the patient meet any 2 criteria? No. Patient's initial sepsis screen is negative. Does the patient have a suspected source of infection? No. Patient's initial sepsis screen is negative. Care prior to arrival: None. 10:16 Method Of Arrival: Ambulatory sg 10:16 Acuity: ISELA 3 sg Triage Assessment: 10:25 Respiratory: Reports difficulty breathing due to nose bleed. Onset: The rb1 symptoms/episode began/occurred Saturday04/15/18, the patient has mild shortness of breath. Historical: - Allergies: 10:15 NKA; sg - Home Meds: 10:15 alphagan 5 ml nightly [Active]; atorvastatin 40 mg Oral tab 1 tab nightly [Active]; sg Benicar HCT 40-25 mg Oral tab 1 tab once daily [Active]; Caltrate 600 + D 600 mg (1,500 mg)-800 unit Oral chew twice a day [Active]; Lasix 40 mg Oral tab 1 tab 2 times per day [Active]; potassium chloride 10 mEq Oral cpER 1 cap 2 times per day [Active]; Toprol XL 50 mg Oral Tb24 1 tab twice a day for Hypertension [Active]; Xarelto 15 mg Oral tab daily [Active]; - PMHx: 10:15 Atrial Fib; Cataracts; CHF; colon cancer; Hypertension; Glaucoma; NOSE BLEEDS; sg Osteopenia; osteoarthritis of spine; Osteoporosis; TIA; - Immunization history:: Adult Immunizations up to date. - Social history:: Smoking status: Patient/guardian denies using tobacco. - Ebola Screening: : Patient negative for fever greater than or equal to 101.5 degrees Fahrenheit, and additional compatible Ebola Virus Disease symptoms Patient denies exposure to infectious person Patient denies travel to an Ebola-affected area in the 21 days before illness onset No symptoms or risks identified at this time. Screenin:25 Abuse screen: Denies threats or abuse. Nutritional screening: No deficits noted. rb1 Tuberculosis screening: No symptoms or risk factors identified. Fall Risk None identified. Assessment: 10:25 General: Appears in no apparent distress. comfortable, slender, Behavior is calm, rb1 cooperative. Neuro: Level of Consciousness is awake, alert, obeys commands, Oriented to person, place, time, situation. Cardiovascular: Capillary refill < 3 seconds is brisk in bilateral fingers. Respiratory: Airway is patent is compromised Respiratory effort is even, unlabored, Respiratory pattern is regular, symmetrical. GI: No signs and/or symptoms were reported involving the gastrointestinal system. : No signs and/or symptoms were reported regarding the genitourinary system. Derm: Skin is pink, warm \T\ dry. 10:25 Cardiovascular: Rhythm is irregular. Respiratory: Breath sounds with crackles. EENT: rb1 Nares with bleeding noted on left. 10:25 Pain: Denies pain. rb1 11:25 Reassessment: Patient appears in no apparent distress at this time. Patient and/or rb1 family updated on plan of care and expected duration. Pain level reassessed. Patient is alert, oriented x 3, equal unlabored respirations, skin warm/dry/pink. daughter at bedside. 12:25 Reassessment: Patient appears in no apparent distress at this time. Left nare has small rb1 amount of bloody drainage present. 13:20 Reassessment: Patient appears in no apparent distress at this time. Patient and/or rb1 family updated on plan of care and expected duration. Pain level reassessed. Patient is alert, oriented x 3, equal unlabored respirations, skin warm/dry/pink. Updated on POC. Daughter at bedside. 13:23 Reassessment: Called report to RONEN Martell at [place]. Information from the [facility] was rb1 given. All questions asked and answered. 13:52 Reassessment: Gave report to [facility]. All questions asked and answered. rb1 Vital Signs: 10:17 BP 127 / 66; Pulse 92; Resp 22; Temp 97.9; Pulse Ox 93% on R/A; Weight 70.76 kg; Pain sg 7/10; 11:17 BP 108 / 61; Pulse 70; Resp 21; Pulse Ox 94% on R/A; rb1 12:15 BP 110 / 63; Pulse 88; Resp 16; Pulse Ox 95% on R/A; rb1 13:13 BP 108 / 60; Pulse 75; Resp 12; Pulse Ox 95% on R/A; mh5 ED Course: 10:07 Patient arrived in ED. sb2 10:08 Mauri Banks MD is Private Physician. sb2 10:14 Arm band placed on. sg 10:17 Triage completed. sg 10:19 Riky Ellison PA is PHCP. jr8 10:19 Jose M Raya MD is Attending Physician. jr8 10:43 Anita Conde, RN is Primary Nurse. rb1 11:04 X-ray completed. Portable x-ray completed in exam room. Patient tolerated procedure jb2 well. 11:04 XRAY Chest (1 view) In Process Unspecified. EDMS 11:21 Initial lab(s) drawn, by me, sent to lab. EKG done, by ED staff, reviewed by Jose M Raya MD. Inserted saline lock: 24 gauge in left wrist, using aseptic technique. Blood collected. 11:22 Patient has correct armband on for positive identification. Placed in gown. Bed in low mh5 position. Call light in reach. Side rails up X 1. Adult w/ patient. Warm blanket given. Pulse ox on. NIBP on. 11:23 Basic Metabolic Panel Sent. 5 11:23 CBC with Diff Sent. 5 11:23 Magnesium Sent. 5 11:23 NT PRO-BNP Sent. 5 11:23 PT-INR Sent. 5 11:23 Troponin (emerg Dept Use Only) Sent. 5 14:00 No provider procedures requiring assistance completed. Patient transferred, IV remains rb1 in place. Administered Medications: 11:35 Drug: Lasix 40 mg Route: IVP; Site: left forearm; rb1 Outcome: 13:12 ER care complete, transfer ordered by . jr8 14:00 Patient left the ED. rb1 14:00 Transferred by ground EMS to [facility], Transfer form completed. rb1 14:00 Condition: stable 14:00 Instructed on the need for admit. Signatures: Dispatcher [employer] EDMS Alan Luna RN Thomas Santos Josh, PA PA jr8 Anita Conde RN RN [address] [address] 5 Aminata Simons sb2 Corrections: (The following items were deleted from the chart) 19:32 10:25 Reassessment: Patient appears in no apparent distress at this time. Left nare has rb1 small amount of bloody drainage present. rb1 19:33 12:20 Reassessment: Patient appears in no apparent distress at this time. [facility] rb1 19:36 14:35 Patient left the ED. 5 [facility]
--- NOTE | 2018-04-17 13:13 | EDPHYS ---
Physician Documentation [facility] Name: Irene Bauer Age: 77 yrs Sex: Female : 1940 Arrival Date: 04/17/2018 Time: 10:07 Bed 13 Private MD: Mauri Banks ED Physician Jose M Raya HPI: 04/17 10:47 This 77 yrs old Female presents to ER via Ambulatory with complaints of Nose jr8 Bleed, Breathing Difficulty. 10:47 Onset: The symptoms/episode began/occurred acutely, 2 day(s) ago. Associated signs and jr8 symptoms: Loss of consciousness: the patient experienced no loss of consciousness. Severity of symptoms: At their worst the symptoms were moderate. The patient has been recently seen by a physician:. Patient had epistaxis 48 hours ago. Continues to have post nasal bleeding. Called PCP and told her to come back to ED. Patient also has shortness of breath that started yesterday. Historical: - Allergies: 10:15 NKA; sg - Home Meds: 10:15 alphagan 5 ml nightly [Active]; atorvastatin 40 mg Oral tab 1 tab nightly [Active]; sg Benicar HCT 40-25 mg Oral tab 1 tab once daily [Active]; Caltrate 600 + D 600 mg (1,500 mg)-800 unit Oral chew twice a day [Active]; Lasix 40 mg Oral tab 1 tab 2 times per day [Active]; potassium chloride 10 mEq Oral cpER 1 cap 2 times per day [Active]; Toprol XL 50 mg Oral Tb24 1 tab twice a day for Hypertension [Active]; Xarelto 15 mg Oral tab daily [Active]; - PMHx: 10:15 Atrial Fib; Cataracts; CHF; colon cancer; Hypertension; Glaucoma; NOSE BLEEDS; sg Osteopenia; osteoarthritis of spine; Osteoporosis; TIA; - Immunization history:: Adult Immunizations up to date. - Social history:: Smoking status: Patient/guardian denies using tobacco. - Ebola Screening: : Patient negative for fever greater than or equal to 101.5 degrees Fahrenheit, and additional compatible Ebola Virus Disease symptoms Patient denies exposure to infectious person Patient denies travel to an Ebola-affected area in the 21 days before illness onset No symptoms or risks identified at this time. ROS: 10:54 Eyes: Negative for injury, pain, redness, and discharge, Neck: Negative for injury, jr8 pain, and swelling, Cardiovascular: Negative for chest pain, palpitations, and edema, Abdomen/GI: Negative for abdominal pain, nausea, vomiting, diarrhea, and constipation, Back: Negative for injury and pain, MS/Extremity: Negative for injury and deformity, Skin: Negative for injury, rash, and discoloration, Neuro: Negative for headache, weakness, numbness, tingling, and seizure. 10:54 ENT: Positive for nose bleed. 10:54 Respiratory: Positive for dyspnea on exertion, shortness of breath. Exam: 10:54 Head/Face: Normocephalic, atraumatic. Eyes: Pupils equal round and reactive to light, jr8 extra-ocular motions intact. Lids and lashes normal. Conjunctiva and sclera are non-icteric and not injected. Cornea within normal limits. Periorbital areas with no swelling, redness, or edema. Neck: Trachea midline, no thyromegaly or masses palpated, and no cervical lymphadenopathy. Supple, full range of motion without nuchal rigidity, or vertebral point tenderness. No Meningismus. Cardiovascular: Regular rate and rhythm with a normal S1 and S2. No gallops, murmurs, or rubs. Normal PMI, no JVD. No pulse deficits. Abdomen/GI: Soft, non-tender, with normal bowel sounds. No distension or tympany. No guarding or rebound. No evidence of tenderness throughout. Back: No spinal tenderness. No costovertebral tenderness. Full range of motion. Skin: Warm, dry with normal turgor. Normal color with no rashes, no lesions, and no evidence of cellulitis. MS/ Extremity: Pulses equal, no cyanosis. Neurovascular intact. Full, normal range of motion. Neuro: Awake and alert, GCS 15, oriented to person, place, time, and situation. Cranial nerves II-XII grossly intact. Motor strength 5/5 in all extremities. Sensory grossly intact. Cerebellar exam normal. Normal gait. 10:54 ENT: Nose: External nose: no obvious acute abnormality, Nasal septum: is midline, Nasal mucosa: moist, Turbinates: are normal, bleeding, is seen from the left nare, and is minimal, clotted blood, in right nare, Mouth: Lips: moist, Oral mucosa: pink and intact, moist, Gums: pink, Tongue: is moist, Posterior pharynx: Airway: patent, Tonsils: are normal in appearance, Uvula: midline, posterior epistaxis noted upon examination of the posterior pharynx . 10:54 Respiratory: the patient does not display signs of respiratory distress, Respirations: tachypnea, that is mild, Breath sounds: rales, that are mild, are located in both bases. Vital Signs: 10:17 BP 127 / 66; Pulse 92; Resp 22; Temp 97.9; Pulse Ox 93% on R/A; Weight 70.76 kg; Pain sg 7/10; 11:17 BP 108 / 61; Pulse 70; Resp 21; Pulse Ox 94% on R/A; rb1 12:15 BP 110 / 63; Pulse 88; Resp 16; Pulse Ox 95% on R/A; rb1 13:13 BP 108 / 60; Pulse 75; Resp 12; Pulse Ox 95% on R/A; mh5 MDM: 10:19 Patient medically screened. [facility] 11:26 ED course: I have left message for Dr. Sierra to see if she would be able to see [facility] patient today for possible cauterization . 12:49 ED course: Dr. Sierra called back. Is out of office today. Dr. Banks consulted and [facility] agrees patient needs to be sent to ENT for cauterization. Will try [facility] . 13:08 Data reviewed: vital signs, nurses notes, lab test result(s), EKG, radiologic studies, [facility] plain films, and as a result, I will admit patient. Data interpreted: Pulse oximetry: on room air is 94 %. Interpretation: normal. Counseling: I had a detailed discussion with the patient and/or guardian regarding: the historical points, exam findings, and any diagnostic results supporting the discharge/admit diagnosis, lab results, radiology results, the need to transfer to another facility, for higher level of care, [facility] does not immediately have the required specialist. ED course: [facility] accepted transfer for continued epistaxis . 04/17 10:42 Order name: Basic Metabolic Panel; Complete Time: 12:39 8 04/17 10:42 Order name: CBC with Diff; Complete Time: 11:35 [facility] 04/17 10:42 Order name: Magnesium; Complete Time: 12:39 jr8 04/17 10:42 Order name: NT PRO-BNP; Complete Time: 12:39 04/17 10:42 Order name: PT-INR; Complete Time: 11:51 04/17 10:42 Order name: Troponin (emerg Dept Use Only); Complete Time: 12:05 04/17 10:42 Order name: XRAY Chest (1 view); Complete Time: 11:13 04/17 10:42 Order name: EKG; Complete Time: 10:43 04/17 10:42 Order name: Cardiac monitoring; Complete Time: 11:24 04/17 10:42 Order name: EKG - Nurse/Tech; Complete Time: 10:59 04/17 10:42 Order name: IV Saline Lock; Complete Time: 11:39 04/17 10:42 Order name: Labs collected and sent; Complete Time: 11:23 04/17 10:42 Order name: O2 Per Protocol; Complete Time: 11:00 04/17 10:42 Order name: O2 Sat Monitoring; Complete Time: 11:00 Administered Medications: 11:35 Drug: Lasix 40 mg Route: IVP; Site: left forearm; rb1 Disposition: 15:05 Co-signature as Attending Physician, Jose M Raya MD. rn Disposition: 04/17/18 13:12 Transfer ordered to [facility]. Diagnosis is Epistaxis. - Reason for transfer: Higher level of care. - Accepting physician is [facility]. - Condition is Stable. - Problem is new. - Symptoms have improved. Signatures: Dispatcher [employer] Alan Saunders RN RN sg Nieto, Roman, MD MD rn Roszak, Josh, PA PA [facility] Anita Conde RN RN Umu Avendaño [facility] Corrections: (The following items were deleted from the chart) 11:25 10:54 Respiratory: the patient does not display signs of respiratory distress, 8 Respirations: tachypnea, that is mild, Breath sounds: are clear throughout, no bronchial sounds, no decreased breath sounds, no rales, rhonchi, no stridor, no wheezing, jr8 14:35 13:12 04/17/2018 13:12 Transfer ordered to [facility]. [facility] Diagnosis is Epistaxis. Reason for transfer: Higher level of care. Accepting physician is [facility]. Condition is Stable. Problem is new. Symptoms have improved. jr8
[2018-04-17 14:43] VITALS: TEMP 97.9
[2018-04-17 14:45] VITALS: BP 108/60; O2SAT 95
--- NOTE | 2018-04-17 18:47 | EKG ---
Test Date: 2018-04-17 Test Time: 10:53:50 Seasoner Hand: GRACY MEASUREMENT RESULTS: Intervals: Rate: 77 GA: QRSD: 78 QT: 382 QTc: 432 [place]: P: GA: QRS: 6 T: -38 INTERPRETIVE STATEMENTS: Atrial fibrillation with controlled ventricular response Occasional premature ventricular complexes Cannot rule out Anterior infarct, age undetermined T wave abnormality, consider inferior ischemia Abnormal ECG Compared to ECG 12/17/2017 06:51:15 Myocardial infarct finding still present PVC s are now present Electronically Signed On 04-17-18 18:46:25 CDT by Joe Xie
== END 2018-04-17 14:35 | disposition short-term general hospital (02) ==
LOC: ER 10:04
DX: R04.0 Epistaxis (principal); I11.0 Hypertensive heart disease with heart failure; I50.9 Heart failure, unspecified
CPT/HCPCS: 36415; 71045; 80048; 83735; 83880; 84484; 85025; 85610; 93005; 96374; 99285

== ENCOUNTER 2018-06-23 14:33 | Inpatient (IN) | payer OTHER ==
--- OUTSIDE RECORDS SUMMARY | 2018-06-23 14:54 | XMS REPORT | Clinical Summary ---
:1940 Author Organization [facility] Address [address] [place] [address] Phone Care Team Providers Name Role Phone Unavailable Primary Care Provider Unavailable Allergies No Known Allergies Current Medications Prescription Sig. Disp. Refills Start Date End Date Status digoxin (LANOXIN) 0.25 Take 250 mcg by Active MG tablet mouth daily. olmesartan-hydrochloro Take 1 tablet Active thiazide (BENICAR HCT) by mouth daily. 40-25 mg per tablet rivaroxaban (XARELTO) Take 20 mg by Active 20 mg Tab tablet mouth daily. amLODIPine (NORVASC) Take 1 tablet 30 tablet 0 05/17/2017 05/17/2018 10 MG tablet (10 mg total) by mouth nightly. atorvastatin (LIPITOR) Take 1 tablet 30 tablet 0 05/17/2017 05/17/2018 40 MG tablet (40 mg total) by mouth nightly. metoprolol (LOPRESSOR) Take 1 tablet 60 tablet 0 05/17/2017 05/17/2018 100 MG tablet (100 mg total) by mouth 2 (two) times daily. senna-docusate Take 1 tablet 30 tablet 0 05/17/2017 05/17/2018 (SENOKOT S) 8.6-50 mg by mouth 2 per tablet (two) times daily. Active Problems Problem Noted Date Cerebrovascular accident (CVA), unspecified mechanism (HCC) 05/15/2017 Stroke (HCC) 05/14/2017 Social History Tobacco Use Types Packs/Day Years Used Date Never Smoker Sex Assigned at Date Recorded Not on file Last Filed Vital Signs Not on file Plan of Treatment Not on file Results Not on fileafter 06/22/2017
--- OUTSIDE RECORDS SUMMARY | 2018-06-23 14:54 | XMS REPORT ---
:1940 [facility] Address [address] [place] [address] Dr. [place]inas [address] [place] [id number] Care Team Providers Name Role Phone YAKOV [...] Reference Range Comments HEMOGLOBIN A1C (BEAKER) (test ajbn=324) 6.2 % 4.3-6.1 [id number] 07:10:00 Test Item Value Reference Range Comments MAGNESIUM (BEAKER) (test orgx=804) 1.9 mg/dL 1.6-2.6 BASIC METABOLIC [id number] 07:10:00 Test Item Value Reference Range Comments SODIUM (BEAKER) (test 133 meq/L 136-145 qgvb=787) POTASSIUM (BEAKER) (test 3.7 meq/L 3.5-5.1 vxio=047) CHLORIDE (BEAKER) (test 101 meq/L 98-107 mmye=456) CO2 (BEAKER) (test 24 meq/L 22-29 flkx=032) BLOOD UREA NITROGEN 20 mg/dL 7-21 (BEAKER) (test voyw=061) CREATININE (BEAKER) (test 0.69 mg/dL 0.57-1.25 ejwl=782) GLUCOSE RANDOM (BEAKER) 133 mg/dL 70-105 (test oowj=302) CALCIUM (BEAKER) (test 8.6 mg/dL 8.4-10.2 wmge=835) EGFR (BEAKER) (test 82 mL/min/1.73 sq m ESTIMATED GFR IS NOT uzie=6302) ACCURATE CREATININE CLEARANCE IN PREDICTING GLOMERULAR FILTRATION RATE. ESTIMATED GFR IS NOT APPLICABLE FOR DIALYSIS PATIENTS. CBC (HEMOGRAM ONLY)2017-05-16 05:48:00 Test Item Value Reference Range Comments WHITE BLOOD CELL COUNT (BEAKER) (test oajk=455) 7.2 K/ L 3.5-10.5 RED BLOOD CELL COUNT (BEAKER) (test tuhp=686) 4.72 M/ L 3.93-5.22 HEMOGLOBIN (BEAKER) (test yjev=403) 15.3 GM/DL 11.2-15.7 HEMATOCRIT (BEAKER) (test fjvu=383) 45.9 % 34.1-44.9 MEAN CORPUSCULAR VOLUME (BEAKER) (test vzcd=257) 97.2 fL 79.4-94.8 MEAN CORPUSCULAR HEMOGLOBIN (BEAKER) (test 32.4 pg 25.6-32.2 sudc=362) MEAN CORPUSCULAR HEMOGLOBIN CONC (BEAKER) (test 33.3 GM/DL 32.2-35.5 lgfu=036) RED CELL DISTRIBUTION WIDTH (BEAKER) (test 14.5 % 11.7-14.4 mgto=279) PLATELET COUNT (BEAKER) (test dgav=243) 170 K/CU MM 150-450 MEAN PLATELET VOLUME (BEAKER) (test kiyp=866) 10.7 fL 9.4-12.3 NUCLEATED RED BLOOD CELLS (BEAKER) (test 0 /100 WBC 0-0 choo=500) [id number] 05:45:00 Test Item Value Reference Range Comments MAGNESIUM (BEAKER) (test 2.3 mg/dL 1.6-2.6 Specimen moderately hemolyzed snyv=441) COMPREHENSIVE METABOLIC [id number] 05:45:00 Test Item Value Reference Range Comments TOTAL PROTEIN (BEAKER) 6.7 gm/dL 6.0-8.3 Specimen moderately (test cjrv=222) hemolyzed ALBUMIN (BEAKER) (test 3.7 g/dL 3.5-5.0 Specimen moderately nsjy=4204) hemolyzed ALKALINE PHOSPHATASE 67 U/L 40-150 (BEAKER) (test dteu=465) BILIRUBIN TOTAL (BEAKER) 1.1 mg/dL 0.2-1.2 Specimen moderately (test fqax=839) hemolyzed SODIUM (BEAKER) (test 129 meq/L 136-145 eosy=018) POTASSIUM (BEAKER) (test 5.2 meq/L 3.5-5.1 Specimen moderately akcp=599) hemolyzed CHLORIDE (BEAKER) (test 101 meq/L 98-107 htdk=765) CO2 (BEAKER) (test 17 meq/L 22-29 gfuc=616) BLOOD UREA NITROGEN 20 mg/dL 7-21 (BEAKER) (test ssww=767) CREATININE (BEAKER) (test 0.74 mg/dL 0.57-1.25 Specimen moderately umcd=506) hemolyzed GLUCOSE RANDOM (BEAKER) 125 mg/dL 70-105 (test wqtx=811) CALCIUM (BEAKER) (test 8.6 mg/dL 8.4-10.2 usjq=914) AST (SGOT) (BEAKER) (test 39 U/L 5-34 Specimen moderately twon=086) hemolyzed ALT (SGPT) (BEAKER) (test 28 U/L 6-55 Specimen moderately pmom=594) hemolyzed EGFR (BEAKER) (test 76 mL/min/1.73 sq m ESTIMATED GFR IS NOT hrmt=8078) ACCURATE CREATININE CLEARANCE IN PREDICTING GLOMERULAR FILTRATION RATE. ESTIMATED GFR IS NOT APPLICABLE FOR DIALYSIS PATIENTS. [id number] 11:50:00 Test Item Value Reference Range Comments RPR SCREEN (BEAKER) (test uabt=483) Nonreactive Nonreactive BASIC METABOLIC [id number] 06:28:00 Test Item Value Reference Range Comments SODIUM (BEAKER) (test 134 meq/L 136-145 ftnp=271) POTASSIUM (BEAKER) (test 3.7 meq/L 3.5-5.1 Specimen slightly iqqs=961) hemolyzed CHLORIDE (BEAKER) (test 97 meq/L 98-107 agyg=685) CO2 (BEAKER) (test 28 meq/L 22-29 wrea=920) BLOOD UREA NITROGEN 16 mg/dL 7-21 (BEAKER) (test kvze=216) CREATININE (BEAKER) (test 0.70 mg/dL 0.57-1.25 Specimen slightly siat=604) hemolyzed GLUCOSE RANDOM (BEAKER) 124 mg/dL 70-105 (test lhkh=681) CALCIUM (BEAKER) (test 9.0 mg/dL 8.4-10.2 qahc=660) EGFR (BEAKER) (test 81 mL/min/1.73 sq m ESTIMATED GFR IS NOT wizt=3139) ACCURATE CREATININE CLEARANCE IN PREDICTING GLOMERULAR FILTRATION RATE. ESTIMATED GFR IS NOT APPLICABLE FOR DIALYSIS PATIENTS. FastingLIPID [id number] 06:28:00 Test Item Value Reference Range Comments TRIGLYCERIDES (BEAKER) (test 223 mg/dL Specimen slightly hemolyzed lxzm=475) CHOLESTEROL (BEAKER) (test 176 mg/dL Specimen slightly hemolyzed rxoi=514) HDL CHOLESTEROL (BEAKER) (test 42 mg/dL duhk=377) LDL CHOLESTEROL CALCULATED 89 mg/dL (BEAKER) (test iatg=521) Triglyceride Reference Range: Low Risk <150 Borderline 150- 199 High Risk 200-499 Very High Risk >=500Cholesterol Reference Range: Low Risk <200 Borderline 200-239 High Risk > 240HDL Cholesterol Reference Range: Low Risk >=60 High Risk <40LDL Cholesterol Reference Range: Optimal <100 Near Optimal 100-129 Borderline 130-159 High 160-189 Very High >=190 FastingVITAMIN B12 AND [id number] 04:10:00 Test Item Value Reference Range Comments VITAMIN B12 (BEAKER) (test ltlc=688) 514 pg/mL 213-816 FOLATE (BEAKER) (test iusz=700) > ng/mL >=7.0 Effective 08/31/2014: Folate Reference Range ChangeNew: >=7.0 Previous: & gt;=5.4TSH/FREE T4 IF [id number] 02:52:00 Test Item Value Reference Range Comments THYROID STIMULATING HORMONE (BEAKER) (test 2.55 uIU/mL 0.35-4.94 btgk=502) SEDIMENTATION [id number] 01:10:00 Test Item Value Reference Range Comments SEDIMENTATION RATE, ERYTHROCYTE (BEAKER) (test 6 mm/HR 0-40 beyy=464) [id number] 00:35:00 Test Item Value Reference Range Comments HOMOCYSTEINE (BEAKER) (test cjlb=739) 8.5 umol/L 5.1-15.4 URINALYSIS W/ [id number] 00:30:00 Test Item Value Reference Range Comments COLOR (BEAKER) (test djwu=480) Light Yellow CLARITY (BEAKER) (test sndl=222) Clear SPECIFIC GRAVITY UA (BEAKER) (test rtzi=071) 1.006 1.001-1.035 PH UA (BEAKER) (test knby=450) 7.5 5.0-8.0 PROTEIN UA (BEAKER) (test acjh=507) 20 mg/dL Negative GLUCOSE UA (BEAKER) (test qmde=074) Negative Negative KETONES UA (BEAKER) (test cnyd=930) Negative Negative BILIRUBIN UA (BEAKER) (test wkcw=539) Negative Negative BLOOD UA (BEAKER) (test amgg=536) Negative Negative NITRITE UA (BEAKER) (test kybn=153) Negative Negative LEUKOCYTE ESTERASE UA (BEAKER) (test elyp=540) Negative Negative UROBILINOGEN UA (BEAKER) (test dsuw=337) 0.2 mg/dL 0.2-1.0 RBC UA (BEAKER) (test ddex=608) < /HPF WBC UA (BEAKER) (test uzex=436) < /HPF SQUAMOUS EPITHELIAL (BEAKER) (test wjqt=234) 1 /HPF SOURCE(BEAKER) (test wmkq=4284) Urine, Voided TROPONIN [id number] 00:23:00 Test Item Value Reference Range Comments TROPONIN I (BEAKER) (test wjcv=778) 0.01 ng/mL 0.00-0.03 Effective 08/31/2014: Reference Range [...] acute neurological disease, and persistent tachyarrhythmia.HEPATIC FUNCTION [id number] 00:17:00 Test Item Value Reference Range Comments TOTAL PROTEIN (BEAKER) (test qwor=909) 6.7 gm/dL 6.0-8.3 ALBUMIN (BEAKER) (test pwyy=2871) 4.0 g/dL 3.5-5.0 BILIRUBIN TOTAL (BEAKER) (test mnxv=798) 1.3 mg/dL 0.2-1.2 BILIRUBIN DIRECT (BEAKER) (test xbio=950) 0.4 mg/dL 0.1-0.5 ALKALINE PHOSPHATASE (BEAKER) (test wxim=532) 56 U/L 40-150 AST (SGOT) (BEAKER) (test jrmx=868) 30 U/L 5-34 ALT (SGPT) (BEAKER) (test dgwq=852) 31 U/L 6-55 BASIC METABOLIC [id number] 00:17:00 Test Item Value Reference Range Comments SODIUM (BEAKER) (test 132 meq/L 136-145 igel=699) POTASSIUM (BEAKER) (test 3.4 meq/L 3.5-5.1 pkpw=765) CHLORIDE (BEAKER) (test 93 meq/L 98-107 svzr=810) CO2 (BEAKER) (test 27 meq/L 22-29 zebw=602) BLOOD UREA NITROGEN 17 mg/dL 7-21 (BEAKER) (test rnie=253) CREATININE (BEAKER) (test 0.80 mg/dL 0.57-1.25 relv=835) GLUCOSE RANDOM (BEAKER) 152 mg/dL 70-105 (test gslr=023) CALCIUM (BEAKER) (test 9.2 mg/dL 8.4-10.2 lczd=040) EGFR (BEAKER) (test 69 mL/min/1.73 sq m ESTIMATED GFR IS NOT zbki=7815) ACCURATE CREATININE CLEARANCE IN PREDICTING GLOMERULAR FILTRATION RATE. ESTIMATED GFR IS NOT APPLICABLE FOR DIALYSIS PATIENTS. C-REACTIVE [id number] 00:17:00 Test Item Value Reference Range Comments C-REACTIVE PROTEIN (BEAKER) (test xiyu=887) 0.55 mg/dL 0.00-0.50 PROTHROMBIN [id number] 00:07:00 Test Item Value Reference Range Comments PROTIME (BEAKER) (test ltya=540) 15.6 seconds 11.7-14.7 INR (BEAKER) (test zind=987) 1.3 <=5.9 RECOMMENDED COUMADIN/WARFARIN INR THERAPY RANGESSTANDARD DOSE: 2.0 - 3.0 Includes: PROPHYLAXIS forvenous thrombosis, systemic embolization; TREATMENT for venous thrombosis and/or pulmonary embolus.HIGH RISK: Target INR is 2.5-3.5 for patients with mechanical heart valves.CBC W/PLT COUNT & AUTO [id number] 00:01:00 Test Item Value Reference Range Comments WHITE BLOOD CELL COUNT (BEAKER) (test gack=182) 9.3 K/ L 3.5-10.5 RED BLOOD CELL COUNT (BEAKER) (test bzbe=031) 4.77 M/ L 3.93-5.22 HEMOGLOBIN (BEAKER) (test enki=550) 15.6 GM/DL 11.2-15.7 HEMATOCRIT (BEAKER) (test fgvd=238) 45.4 % 34.1-44.9 MEAN CORPUSCULAR VOLUME (BEAKER) (test eeuw=458) 95.2 fL 79.4-94.8 MEAN CORPUSCULAR HEMOGLOBIN (BEAKER) (test 32.7 pg 25.6-32.2 vsfh=940) MEAN CORPUSCULAR HEMOGLOBIN CONC (BEAKER) (test 34.4 GM/DL 32.2-35.5 gbrd=742) RED CELL DISTRIBUTION WIDTH (BEAKER) (test 14.2 % 11.7-14.4 nrbb=551) PLATELET COUNT (BEAKER) (test utgw=393) 166 K/CU MM 150-450 MEAN PLATELET VOLUME (BEAKER) (test ounx=034) 10.6 fL 9.4-12.3 NUCLEATED RED BLOOD CELLS (BEAKER) (test 0 /100 WBC 0-0 afrh=231) NEUTROPHILS RELATIVE PERCENT (BEAKER) (test 64 % lpva=504) LYMPHOCYTES RELATIVE PERCENT (BEAKER) (test 26 % zcqx=218) MONOCYTES RELATIVE PERCENT (BEAKER) (test 8 % cpzu=312) EOSINOPHILS RELATIVE PERCENT (BEAKER) (test 1 % kvky=663) BASOPHILS RELATIVE PERCENT (BEAKER) (test 1 % viwl=430) NEUTROPHILS ABSOLUTE COUNT (BEAKER) (test 5.97 K/ L 1.56-6.13 tvza=482) LYMPHOCYTES ABSOLUTE COUNT (BEAKER) (test 2.41 K/ L 1.18-3.74 dgtw=767) MONOCYTES ABSOLUTE COUNT (BEAKER) (test 0.77 K/ L 0.24-0.36 dnqi=472) EOSINOPHILS ABSOLUTE COUNT (BEAKER) (test 0.07 K/ L 0.04-0.36 bhfq=770) BASOPHILS ABSOLUTE COUNT (BEAKER) (test 0.05 K/ L 0.01-0.08 jmzf=839) IMMATURE GRANULOCYTES-RELATIVE PERCENT (BEAKER) 0 % 0-1 (test gybj=5679)
[2018-06-23] MEDS ORDERED: TRIAMCINOLONE ACETONIDE NAS PRN (15:51)
[2018-06-23] MEDS ORDERED: CETIRIZINE HCL PO PRN (15:51)
[2018-06-23 16:11] LABS: Absolute Lymphocytes (CBC) 1.5 K/uL (0.7-4.9); Absolute Monocytes 0.8 K/uL (0.1-1.3); Absolute Neutrophil 4.6 K/uL (1.8-8.0); Basophils % 0.9 % (0-1.3); Eosinophils % 0.5 % (0-4.4); Hematocrit 42.4 % (36.0-45.0); Lymphocytes % 21.7 % (15.3-44.8); MCH 32.4 pg (27.0-35.0); MCV 96.3 fL (80-100); MPV 8.4 fL (7.6-11.3); Monocytes % 11.8 % (3.3-12.3); RBC Red Blood Cell Count 4.41 M/uL (3.86-4.86)
[2018-06-23 16:35] LABS: Albumin 3.5 g/dL (3.4-5.0); Bilirubin Total 0.8 mg/dL (0.2-1.0); Magnesium 2.3 mg/dL (1.8-2.4); Potassium 3.9 mmol/L (3.5-5.1); Protein, Total 6.5 g/dL (6.4-8.2)
[2018-06-23 16:39] LABS: Thyroid Stimulating Hormone 4.15 uIU/mL (0.360-3.740)
[2018-06-23] MEDS: FUROSEMIDE 40 MG/4 ML VIAL IV SCH (17:02)
[2018-06-23] MEDS ORDERED: POTASSIUM 25 MEQ EFFERV TAB PO ONE (18:00)
--- NOTE | 2018-06-23 18:57 | RAD REPORT ---
EXAM DESCRIPTION: RAD - Chest Pa And Lat (2 Views) - 06/23/2018 6:51 pm CLINICAL HISTORY: CHF Chest pain. COMPARISON: Chest Single View dated 04/17/2018; Chest Single View dated 12/17/2017; Chest Single View [place] 12/16/2017; Chest Pa And Lat (2 Views) dated 09/26/2017 FINDINGS: The lungs are mildly hyperexpanded but clear. The heart is mildly moderately enlarged. Sma ll bilateral pleural effusions are present. Tortuous thoracic aorta noted.
[2018-06-23] MEDS ORDERED: METOPROLOL SUCCINATE 100 MG PO SCH (21:00)
[2018-06-23] MEDS ORDERED: CEFTRIAXONE 1 GM/NS 50 ML 1 GM/50 ML BAG IV SCH (21:00)
[2018-06-23] MEDS ORDERED: ACETAMINOPHEN PO SCH (21:00)
[2018-06-23] MEDS: BRIMONIDINE EACH EYE SCH (21:31)
[2018-06-23] MEDS: ATORVASTATIN 40 MG PO SCH (21:32)
[2018-06-23] MEDS ORDERED: METOPROLOL XL 100 MG TAB PO ONE (21:48)
[2018-06-23] MEDS ORDERED: CEFTRIAXONE/SWI 1gm 1 GM/10 ML SYR ONE (22:20)
[2018-06-23 22:33] LABS: Urine Appearance CLOUDY; Urine Bilirubin NEGATIVE (NEG); Urine Blood 1+ (NEG); Urine Color YELLOW; Urine Glucose NEGATIVE (NEG); Urine Protein NEGATIVE (NEG); Urine pH 7.5 (5.0-7.0)
[2018-06-23 22:55] LABS: Urine Culture Reflex Order NOT NEEDED
[2018-06-23 22:56] LABS: Urine Bacteria 20-50 /HPF (<20)
--- NOTE | 2018-06-24 00:33 | EKG ---
Test Date: 2018-06-23 Test Time: 16:14:14 Animal Sitter: RUFINO MEASUREMENT RESULTS: Intervals: Rate: 102 MD: QRSD: 76 QT: 362 QTc: 471 [place]: P: MD: QRS: -25 T: -50 INTERPRETIVE STATEMENTS: Atrial fibrillation with rapid ventricular response with premature ventricular or aberrantly conducted complexes Cannot rule out Anterior infarct, age undetermined Abnormal ECG Compared to ECG 04/17/2018 10:53:50 T-wave abnormality no longer present Possible ischemia no longer present Myocardial infarct finding still present Electronically Signed On 06-24-18 00:31:59 CDT by Jeffery Rey
[2018-06-24 04:48] LABS: Potassium 4.5 mmol/L (3.5-5.1)
--- NOTE | 2018-06-24 06:38 | HP ---
Date of Admission: 06/23/2018 Chief Complaint: Shortness of breath. History Of Present Illness: A 77-year-old female patient with atrial fibrillation, hypertension, con gestive heart failure, came into office today with complaints of increasing shortness of breath, weig ht gain, leg swelling, and last couple of days she is having paroxysmal nocturnal dyspnea and orthopn ea. Her shortness of breath is worse over period of last week to two weeks as she says and she gets short of breath with any minimum day-to-day activity. The last couple of nights, she had to stay upr ight in bed in order for her to feel better and today, she came in to see me after she was evaluated at the office. She was admitted to the hospital. The patient takes her medications regularly. She reported that her blood pressure has been going up lately at home, so she increased her dose of olmes bill from 20 mg daily to 40 mg daily, and she also increased her metoprolol from 50 mg 2 times a day to 100 mg 2 times a day and still her blood pressure and pulse has remained high. After she was donte luated at the office, decision was made to admit her to the hospital. Medications: Amlodipine 10 mg daily if systolic blood pressure higher than 160, atorvastatin 40 mg d aily, Caltrate plus D 1 tablet daily, Centrum Silver 1 tablet daily, duloxetine 20 mg daily, Ecotrin 81 mg daily, furosemide 40 mg takes 2 tablets 2 times a day, Klor-Con 10 mEq 1 tablet 2 times a day, metoprolol 100 mg 2 times a day, olmesartan 40 mg p.o. daily, Xarelto 15 mg p.o. daily, Alphagan eye drops. Review of Systems: Cardiovascular: As mentioned above. Respiratory: As mentioned above. All other systems reviewed and negative. Past Surgical History: Partial colectomy due to colon cancer, July 02, 2012, back surgery, blad yuli suspension, hysterectomy, and appendectomy. Social History: Negative for smoking, alcohol use. Family History: Significant for stroke and colon cancer. Past Medical History: Significant for mixed hyperlipidemia, impaired fasting glucose, varicose veins of legs, osteoarthritis at multiple sites, paroxysmal atrial fibrillation, colon cancer involving sp lenic flexure, hypertension, diverticulosis, anxiety, depression, chronic diastolic congestive heart failure. Physical Examination: Vital Signs: When I saw her today at office, height 64.5 inches, weight 161 pounds, blood pressure 1 36/92, respiratory rate 15, pulse 112, temperature 97.2. General: Awake, alert, oriented, not in distress. HEENT: Head atraumatic, normocephalic. Conjunctivae nonerythematous. Sclerae white. Mouth, no thr ush or edema noted. Ears/Nose, no mass, lesion, discharge noted. Neck: Supple. No JVD, lymph nodes, bruit, thyromegaly noted. Lungs: Presence of rales noted in both lower lung pardo. Heart: Normal heart sounds, no murmur or gallop. Abdomen: Soft, bowel sounds normal. No guarding, rigidity, tenderness, mass, hepatosplenomegaly, dis tention, or bruit noted. Extremities: Bilateral grade 2 pedal edema. Skin: No rash, ulcer, cellulitis. Lymphatics: No lymph node enlargement in neck, supraclavicular, infraclavicular region. Neuro: No focal neurological deficit. Chest: Unremarkable. External Genitalia: Deferred. Rectal: Deferred. Genitourinary: The patient has some burning sensation on urination and urinary frequency. Laboratory Data: Urinalysis done at office shows moderate leukocytes, pH 7.5, specific gravity 1.010 , small protein. Rest of the urinalysis was negative. After admission to the hospital blood work in cluded CBC, white count 7.1, hemoglobin 14.3, platelets 195. Sodium 134, potassium 3.9, chloride 93, bicarb 33, BUN 23, creatinine 0.90, glucose 133. Liver function tests unremarkable. ProBNP 5986. TSH 4.15. Chest x-ray shows bilateral pleural effusion. Jnbr-si-hvdtxrcj enlargement of heart size. Impression: 1.Congestive heart failure, chronic, diastolic, with acute exacerbation. 2.Urinary tract infection. 3.Hypertension. 4.Mixed hyperlipidemia. 5.Impaired fasting glucose. 6.Colon cancer. 7.Paroxysmal atrial fibrillation. 8.Diverticulosis. 9.Anxiety. 10.Depression. 11.Chronic anticoagulation therapy. Plan: Admit the patient to hospital for further evaluation and management of this problem. The yo ent is appropriate for inpatient and is expected to spend 2 midnights in hospital. We will go ahead and continue home medications per order. Give IV Lasix 40 mg 2 times a day. Monitor electrolytes an d we will monitor her weight. Monitor intake/output. We will get echo with Doppler on her tomorrow and plan of treatment discussed with her. Start antibiotic for her urinary tract infection and follo w up on urine culture. HITESH/MODL Voice ID: [id number]
[2018-06-24] MEDS: FUROSEMIDE 40 MG/4 ML VIAL IV SCH ×2 (08:11→16:46)
[2018-06-24] MEDS: CEFTRIAXONE/SWI 1gm 1 GM/10 ML SYR IV SCH ×2 (08:12→21:09)
[2018-06-24] MEDS: POTASSIUM CITRATE 20 MEQ PO SCH (08:12)
[2018-06-24] MEDS: DULOXETINE 20 MG PO SCH (08:23)
[2018-06-24] MEDS: OLMESARTAN 20 MG PO SCH (08:24)
[2018-06-24] MEDS: BRIMONIDINE EACH EYE SCH ×2 (08:25→21:08)
[2018-06-24] MEDS ORDERED: METOLAZONE 5 MG TABLET PO SCH (09:00)
[2018-06-24] MEDS ORDERED: METOPROLOL XL 100 MG TAB PO SCH (09:00)
[2018-06-24] MEDS: RIVAROXABAN 15 MG PO SCH (16:48)
[2018-06-24] MEDS: LOPRESSOR 50 MG PO SCH (16:49)
--- NOTE | 2018-06-24 16:56 | ECHO ---
HEIGHT: 5 ft 4 in WEIGHT: 159 lb 4.8 oz DATE OF STUDY: 06/24/[address]: Mauri Banks MD 2-DIMENSIONAL: YES M.MODE: YES DOPPLER: YES COLOR FLOW: YES TDS: PORTABLE: DEFINITY: BUBBLE STUDY: DIAGNOSIS: CONGESTIVE HEART FAILURE. CARDIAC HISTORY: CATHERIZATION: NO SURGERY: NO PROSTHETIC VALVE: NO PACEMAKER: NO MEASUREMENTS (cm) DIASTOLIC (NORMALS) SYSTOLIC (NORMALS) IVSd 1.3 (0.6-1.2) LA Diam 4.0 (1.9-4.0) LVEF 65% LVIDd 3.5 (3.5-5.7) LVIDs 2.3 (2.0-3.5) %FS 35% LVPWd 1.2 (0.6-1.2) Ao Diam 2.4 (2.0-3.7) 2 DIMENSIONAL ASSESSMENT: RIGHT ATRIUM: NORMAL LEFT ATRIUM: NORMAL RIGHT VENTRICLE: NORMAL LEFT VENTRICLE: NORMAL TRICUSPID VALVE: NORMAL MITRAL VALVE: NORMAL PULMONIC VALVE: NORMAL AORTIC VALVE: SCLEROSIS PERICARDIAL EFFUSION: NONE AORTIC ROOT: NORMAL LEFT VENTRICULAR WALL MOTION: NORMAL DOPPLER/COLOR FLOW: MILD TRICUSPID REGURGITATION. COMMENTS: MILD TRICUSPID REGURGITATION. MILD PULMONARY HYPERTENSION. AORTIC SCLEROSIS. NORMAL LEFT VENTRICULAR SIZE AND FUNCTION. NO WALL MOTION ABNORMALITY. TECHNOLOGIST: ARMAND ARELLANO
[2018-06-24] MEDS: ATORVASTATIN 40 MG PO SCH (21:08)
[2018-06-24] MEDS ORDERED: METOPROLOL XL 100 MG TAB PO ONE (21:42)
--- NOTE | 2018-06-25 00:41 | PN ---
Date of Progress Note: 06/24/2018 Subjective: Patient was seen this morning for followup. No new complaints or problems reported by p atient. Sitting at bedside, not in any distress. She did not have any shortness of breath during la st night while she was sleeping, but at the same time, she was sleeping with her head elevated in the hospital bed. Objective: Vital signs: Reviewed. HEENT: Unremarkable. Lungs: Bilateral good equal air entry. Presence of some rales noted in lower lung field. Lung entr y and rales better today than yesterday. Heart: Sounds normal. Abdomen: Soft. Bowel sounds normal. No guarding, rigidity, tenderness, or distention. Extremities: Bilateral leg edema present, but slightly better today than yesterday. Impression: 1.Congestive heart failure, chronic, diastolic, with acute exacerbation. 2.Hypertension. 3.Atrial fibrillation. Plan: Continue current medications. Continue IV Lasix and metoprolol and other antihypertensive med ication, which is Benicar. We will go ahead and add dose of Zaroxolyn 5 mg p.o. x1 dose today. Dominga tor intake, output, and weight. I will see her tomorrow for followup. Possible discharge to go home tomorrow or day after tomorrow. We will follow up on echocardiogram results. HITESH/MODL Voice ID: [id number] Report ID: [id number]
[2018-06-25 04:38] VITALS: O2SAT 97
[2018-06-25] MEDS: POTASSIUM CITRATE 20 MEQ PO SCH (09:00)
--- NOTE | 2018-06-25 09:09 | RAD REPORT ---
EXAM DESCRIPTION: CT - Chest For Pe Angio - 06/25/2018 8:12 am CLINICAL HISTORY: Chest pain. dyspnea, CHF, rule out PE COMPARISON: Chest Pa And Lat (2 Views) dated 06/23/2018 TECHNIQUE: CT angiogram of the pulmonary arteries was performed with MIP. All CT scans are performed using dose optimization technique as appropriate and may include automated exposure control or mA/KV adjustment according to patient size. FINDINGS: No evidence of pulmonary thromboembolism. The aorta is suboptimally contrast opacified with atherosclerosis noted. Prominent cardiomegaly is no kyrie. The lungs are clear. Trace right pleural fluid. No concerning bony finding. IMPRESSION: No evidence of pulmonary thromboembolism. Trace right pleural fluid. Moderate cardiomegaly.
[2018-06-25] MEDS: LOPRESSOR 50 MG PO SCH ×2 (09:50→17:39)
[2018-06-25] MEDS: DULOXETINE 20 MG PO SCH (09:50)
[2018-06-25] MEDS: OLMESARTAN 20 MG PO SCH (09:50)
[2018-06-25] MEDS: FUROSEMIDE 40 MG/4 ML VIAL IV SCH ×2 (09:50→17:39)
[2018-06-25] MEDS: CEFTRIAXONE/SWI 1gm 1 GM/10 ML SYR IV SCH ×2 (09:50→21:44)
[2018-06-25] MEDS: BRIMONIDINE EACH EYE SCH ×2 (09:51→21:44)
[2018-06-25] MEDS ORDERED: AMLODIPINE 5 MG TAB PO ONE (15:00)
[2018-06-25] MEDS: RIVAROXABAN 15 MG PO SCH (17:00)
[2018-06-25] MEDS: ATORVASTATIN 40 MG PO SCH (21:44)
--- NOTE | 2018-06-25 23:44 | PN ---
Date of Progress Note: 06/25/2018 Subjective: The patient was seen this morning for followup. She was feeling better as far as shortn ess of breath is concerned. No paroxysmal nocturnal dyspnea or orthopnea. Leg swelling is better. Objective: Vital Signs: Reviewed. Blood pressure is still elevated, but better than before. This morning, her blood pressure was 163/79. Pulse rate was 82. HEENT: Unremarkable. Lungs: Minimum basal rales, overall much better than before. Not using accessory muscles of respira tion. Heart: Sounds normal. Abdomen: Soft. Bowel sounds normal. No guarding, rigidity, tenderness, or distention. Extremities: Trace leg edema. Laboratory Data: Echocardiogram, normal ejection fraction. CAT scan of the chest per PE protocol do ne today showing no evidence of pulmonary embolism, small pleural effusion present. Impression: 1.Congestive heart failure, chronic, diastolic, with acute exacerbation. 2.Atrial fibrillation. 3.Hypertension. Plan: We will continue IV Lasix. The patient has lost weight with diuretic therapy. She feels over all much better and our plan is to discharge her to go home tomorrow. HITESH/MODL Voice ID: [id number] Report ID: [id number]
[2018-06-26] MEDS: LOPRESSOR 50 MG PO SCH (06:06)
[2018-06-26] MEDS: OLMESARTAN 20 MG PO SCH (06:09)
[2018-06-26 07:33] VITALS: BMI 25.0
[2018-06-26 08:32] VITALS: TEMP 97.7
[2018-06-26] MEDS: BRIMONIDINE EACH EYE SCH (08:56)
[2018-06-26] MEDS: DULOXETINE 20 MG PO SCH (08:56)
[2018-06-26] MEDS: CEFTRIAXONE/SWI 1gm 1 GM/10 ML SYR IV SCH (08:57)
[2018-06-26] MEDS: POTASSIUM CITRATE 20 MEQ PO SCH (08:57)
[2018-06-26] MEDS: FUROSEMIDE 40 MG/4 ML VIAL IV SCH (08:57)
[2018-06-26 08:58] VITALS: BP 159/72
[2018-06-26] MEDS ORDERED: AMLODIPINE 5 MG TAB PO SCH (09:00)
--- NOTE | 2018-06-27 18:18 | DS ---
Date of Discharge: 06/26/2018 Disposition: Discharged to go home. Physical Examination: HEENT: Unremarkable. Lungs: Clear to auscultation. Heart: Sounds normal. Abdomen: Soft, bowel sounds normal. No guarding, rigidity, tenderness, or distention. Extremities: No leg edema. Hospital Course: A 77-year-old female patient admitted to the hospital with complaints of shortness of breath. Please see dictated H and P for more information. The patient came into office with comp laints of increasing shortness of breath, paroxysmal nocturnal dyspnea and orthopnea, weight gain, le g swelling. Please see dictated H and P for more information. After she was evaluated at the office , she was admitted to the hospital. Her blood pressure was elevated when she came in. She has chron ic atrial fibrillation and hypertension problem and multiple other comorbidities. She did increase h er dose of Olmesartan from 20 mg daily to 40 mg daily and metoprolol from 50 mg twice a day to 100 mg twice a day. In spite of doing that, her blood pressure was still high. During this hospitalizatio n, we did add amlodipine 5 mg p.o. daily to help manage control blood pressure. We will continue nichelle t on outpatient basis. During this hospitalization, she received IV diuretic therapy with Lasix 40 m g IV every 12 hours and she also received 1 dose of metolazone. Her leg swelling problem has resolve d. Shortness of breath, PND, orthopnea has resolved. She is feeling much better. Yesterday, CT sca n of the chest per PE protocol was done. It came back negative for pulmonary embolism and no evidenc e of any acute lung findings. Echocardiogram done during this hospitalization shows ejection fractio n 65%. Urinalysis was abnormal, consistent with urinary tract infection, urine culture result was pe nding and we will follow up on outpatient basis. Initial sodium 134, potassium 3.9, chloride 93, bic arb 33, BUN 23, creatinine 0.90, glucose 133. Liver function tests unremarkable. ProBNP 5986. TSH 4.150. Last chemistry on 06/24/2018: Sodium 134, potassium 4.5, chloride 93, bicarb 35, BUN 24, cre atinine 0.90, glucose . Upon admission, white count 7.1, hemoglobin 14.3, platelets 195. Discharge Diagnoses: 1.Congestive heart failure, chronic, diastolic, with acute exacerbation. 2.Urinary tract infection. 3.Hypertension. 4.Mixed hyperlipidemia. 5.Impaired fasting glucose. 6.Paroxysmal atrial fibrillation. 7.Colon cancer. 8.Diverticulosis. 9.Anxiety. 10.Depression. 11.Chronic anticoagulation therapy. Discharge Medications And Instruction: Continue all prior home medications. Take new medication as prescribed below: 1.Metolazone 5 mg, take 1 tablet by mouth once a week, take it 30 minutes before you take your furos emide dose in the morning. 2.Amlodipine 5 mg p.o. daily. 3.Bactrim DS 1 tablet p.o. twice a day for 5 days and all these prescriptions were sent to her pharm [facility] from my office. 4.Follow up at my office in 2 weeks. HITESH/LAWANDA Voice ID: [id number] Report ID: [id number]
== END 2018-06-26 11:35 | disposition home or self-care (01) | DRG 292 ==
LOC: 4TH 14:51
PROVIDERS: ADMIT Internal Medicine; ATTEND Internal Medicine
DX: I11.0 Hypertensive heart disease with heart failure (principal); N39.0 Urinary tract infection, site not specified; I50.33 Acute on chronic diastolic (congestive) heart failure; E78.2 Mixed hyperlipidemia; R73.01 Impaired fasting glucose; I48.0 Paroxysmal atrial fibrillation; Z85.038 Personal history of other malignant neoplasm of large intestine; K57.90 Diverticulosis of intestine, part unspecified, without perforation or abscess without bleeding; F41.8 Other specified anxiety disorders; Z79.01 Long term (current) use of anticoagulants
CPT/HCPCS: 36415; 71046; 71275; 80048; 80053; 81001; 83735; 83880; 84439; 84443; 85025; 87077; 87086; 87088; 87186; 93005; 93306; 97163; J0696; Q9967

== ENCOUNTER 2020-01-18 09:33 | Inpatient (IN) | payer OTHER ==
--- OUTSIDE RECORDS SUMMARY | 2020-01-18 09:36 | XMS REPORT ---
:1940 Author [facility] Address [address] [place] [address] Dr. [place] [address] [place] [id number] Care Team Providers Name Role Phone RADHAYAKOV WESELY Unavailable Unavailable Problems This patient has no known problems. Allergies, Adverse Reactions, Alerts This patient has no known allergies or adverse reactions. Medications This patient has no known medications. Results Test Description Test Time Test Comments Text Results Atomic Results Result Comments HEMOGLOBIN A1C 2017-05-16 21:48:00 Test Item Value Reference Range Comments HEMOGLOBIN A1C (BEAKER) (test avsv=628) 6.2 % 4.3-6.1 [id number] 07:10:00 Test Item Value Reference Range Comments MAGNESIUM (BEAKER) (test rjzs=911) 1.9 mg/dL 1.6-2.6 BASIC METABOLIC [id number] 07:10:00 Test Item Value Reference Range Comments SODIUM (BEAKER) (test 133 meq/L 136-145 uotf=215) POTASSIUM (BEAKER) (test 3.7 meq/L 3.5-5.1 ykbh=683) CHLORIDE (BEAKER) (test 101 meq/L 98-107 awlg=906) CO2 (BEAKER) (test 24 meq/L 22-29 byst=311) BLOOD UREA NITROGEN 20 mg/dL 7-21 (BEAKER) (test fswv=498) CREATININE (BEAKER) (test 0.69 mg/dL 0.57-1.25 ehmc=020) GLUCOSE RANDOM (BEAKER) 133 mg/dL 70-105 (test qpok=072) CALCIUM (BEAKER) (test 8.6 mg/dL 8.4-10.2 yukh=223) EGFR (BEAKER) (test 82 mL/min/1.73 sq m ESTIMATED GFR IS NOT xhvl=5077) ACCURATE CREATININE CLEARANCE IN PREDICTING GLOMERULAR FILTRATION RATE. ESTIMATED GFR IS NOT APPLICABLE FOR DIALYSIS PATIENTS. CBC (HEMOGRAM ONLY)2017-05-16 05:48:00 Test Item Value Reference Range Comments WHITE BLOOD CELL COUNT (BEAKER) (test dycg=475) 7.2 K/ L 3.5-10.5 RED BLOOD CELL COUNT (BEAKER) (test oqhj=936) 4.72 M/ L 3.93-5.22 HEMOGLOBIN (BEAKER) (test ukfi=015) 15.3 GM/DL 11.2-15.7 HEMATOCRIT (BEAKER) (test jcyn=576) 45.9 % 34.1-44.9 MEAN CORPUSCULAR VOLUME (BEAKER) (test qmhp=283) 97.2 fL 79.4-94.8 MEAN CORPUSCULAR HEMOGLOBIN (BEAKER) (test 32.4 pg 25.6-32.2 ylqc=156) MEAN CORPUSCULAR HEMOGLOBIN CONC (BEAKER) (test 33.3 GM/DL 32.2-35.5 ccaw=058) RED CELL DISTRIBUTION WIDTH (BEAKER) (test 14.5 % 11.7-14.4 xlbv=257) PLATELET COUNT (BEAKER) (test ugcn=117) 170 K/CU MM 150-450 MEAN PLATELET VOLUME (BEAKER) (test xmse=925) 10.7 fL 9.4-12.3 NUCLEATED RED BLOOD CELLS (BEAKER) (test 0 /100 WBC 0-0 ucyh=876) [id number] 05:45:00 Test Item Value Reference Range Comments MAGNESIUM (BEAKER) (test 2.3 mg/dL 1.6-2.6 Specimen moderately hemolyzed udym=266) COMPREHENSIVE METABOLIC [id number] 05:45:00 Test Item Value Reference Range Comments TOTAL PROTEIN (BEAKER) 6.7 gm/dL 6.0-8.3 Specimen moderately (test yvku=743) hemolyzed ALBUMIN (BEAKER) (test 3.7 g/dL 3.5-5.0 Specimen moderately bbjx=4114) hemolyzed ALKALINE PHOSPHATASE 67 U/L 40-150 (BEAKER) (test cpfi=471) BILIRUBIN TOTAL (BEAKER) 1.1 mg/dL 0.2-1.2 Specimen moderately (test zqar=949) hemolyzed SODIUM (BEAKER) (test 129 meq/L 136-145 tknh=080) POTASSIUM (BEAKER) (test 5.2 meq/L 3.5-5.1 Specimen moderately jvlt=221) hemolyzed CHLORIDE (BEAKER) (test 101 meq/L 98-107 soux=977) CO2 (BEAKER) (test 17 meq/L 22-29 qhew=664) BLOOD UREA NITROGEN 20 mg/dL 7-21 (BEAKER) (test lyyy=703) CREATININE (BEAKER) (test 0.74 mg/dL 0.57-1.25 Specimen moderately ohzh=960) hemolyzed GLUCOSE RANDOM (BEAKER) 125 mg/dL 70-105 (test zber=170) CALCIUM (BEAKER) (test 8.6 mg/dL 8.4-10.2 bigz=526) AST (SGOT) (BEAKER) (test 39 U/L 5-34 Specimen moderately oufe=073) hemolyzed ALT (SGPT) (BEAKER) (test 28 U/L 6-55 Specimen moderately dnou=769) hemolyzed EGFR (BEAKER) (test 76 mL/min/1.73 sq m ESTIMATED GFR IS NOT zkjl=4991) ACCURATE CREATININE CLEARANCE IN PREDICTING GLOMERULAR FILTRATION RATE. ESTIMATED GFR IS NOT APPLICABLE FOR DIALYSIS PATIENTS. [id number] 11:50:00 Test Item Value Reference Range Comments RPR SCREEN (BEAKER) (test tcxz=583) Nonreactive Nonreactive BASIC METABOLIC [id number] 06:28:00 Test Item Value Reference Range Comments SODIUM (BEAKER) (test 134 meq/L 136-145 ocnp=447) POTASSIUM (BEAKER) (test 3.7 meq/L 3.5-5.1 Specimen slightly ovru=087) hemolyzed CHLORIDE (BEAKER) (test 97 meq/L 98-107 pwdi=941) CO2 (BEAKER) (test 28 meq/L 22-29 ygcc=952) BLOOD UREA NITROGEN 16 mg/dL 7-21 (BEAKER) (test tmus=792) CREATININE (BEAKER) (test 0.70 mg/dL 0.57-1.25 Specimen slightly plrd=513) hemolyzed GLUCOSE RANDOM (BEAKER) 124 mg/dL 70-105 (test rydq=094) CALCIUM (BEAKER) (test 9.0 mg/dL 8.4-10.2 kfuv=689) EGFR (BEAKER) (test 81 mL/min/1.73 sq m ESTIMATED GFR IS NOT bmuq=4390) ACCURATE CREATININE CLEARANCE IN PREDICTING GLOMERULAR FILTRATION RATE. ESTIMATED GFR IS NOT APPLICABLE FOR DIALYSIS PATIENTS. FastingLIPID [id number] 06:28:00 Test Item Value Reference Range Comments TRIGLYCERIDES (BEAKER) (test 223 mg/dL Specimen slightly hemolyzed avev=767) CHOLESTEROL (BEAKER) (test 176 mg/dL Specimen slightly hemolyzed jonz=432) HDL CHOLESTEROL (BEAKER) (test 42 mg/dL kaia=137) LDL CHOLESTEROL CALCULATED 89 mg/dL (BEAKER) (test mpxg=970) Triglyceride Reference Range: Low Risk <150 Borderline 150- 199 High Risk 200-499 Very High Risk >=500Cholesterol Reference Range: Low Risk <200 Borderline 200-239 High Risk > 240HDL Cholesterol Reference Range: Low Risk >=60 High Risk <40LDL Cholesterol Reference Range: Optimal <100 Near Optimal 100-129 Borderline 130-159 High 160-189 Very High >=190 FastingVITAMIN B12 AND [id number] 04:10:00 Test Item Value Reference Range Comments VITAMIN B12 (BEAKER) (test klzn=071) 514 pg/mL 213-816 FOLATE (BEAKER) (test vfkq=334) > ng/mL >=7.0 Effective 08/31/2014: Folate Reference Range ChangeNew: >=7.0 Previous: & gt;=5.4TSH/FREE T4 IF [id number] 02:52:00 Test Item Value Reference Range Comments THYROID STIMULATING HORMONE (BEAKER) (test 2.55 uIU/mL 0.35-4.94 hpzv=737) SEDIMENTATION [id number] 01:10:00 Test Item Value Reference Range Comments SEDIMENTATION RATE, ERYTHROCYTE (BEAKER) (test 6 mm/HR 0-40 sxfd=675) [id number] 00:35:00 Test Item Value Reference Range Comments HOMOCYSTEINE (BEAKER) (test hrrl=455) 8.5 umol/L 5.1-15.4 URINALYSIS W/ [id number] 00:30:00 Test Item Value Reference Range Comments COLOR (BEAKER) (test vime=503) Light Yellow CLARITY (BEAKER) (test tixn=904) Clear SPECIFIC GRAVITY UA (BEAKER) (test fvsh=963) 1.006 1.001-1.035 PH UA (BEAKER) (test jsdt=588) 7.5 5.0-8.0 PROTEIN UA (BEAKER) (test rqer=395) 20 mg/dL Negative GLUCOSE UA (BEAKER) (test ospy=066) Negative Negative KETONES UA (BEAKER) (test syjo=957) Negative Negative BILIRUBIN UA (BEAKER) (test ujah=169) Negative Negative BLOOD UA (BEAKER) (test gqgq=834) Negative Negative NITRITE UA (BEAKER) (test gerq=409) Negative Negative LEUKOCYTE ESTERASE UA (BEAKER) (test nzfx=203) Negative Negative UROBILINOGEN UA (BEAKER) (test eyco=398) 0.2 mg/dL 0.2-1.0 RBC UA (BEAKER) (test txoz=148) < /HPF WBC UA (BEAKER) (test lylv=350) < /HPF SQUAMOUS EPITHELIAL (BEAKER) (test avni=261) 1 /HPF SOURCE(BEAKER) (test jhhl=3211) Urine, Voided TROPONIN [id number] 00:23:00 Test Item Value Reference Range Comments TROPONIN I (BEAKER) (test wijf=410) 0.01 ng/mL 0.00-0.03 Effective 08/31/2014: Reference Range [...] acute neurological disease, and persistent tachyarrhythmia.HEPATIC FUNCTION [id number] 00:17:00 Test Item Value Reference Range Comments TOTAL PROTEIN (BEAKER) (test zaxr=736) 6.7 gm/dL 6.0-8.3 ALBUMIN (BEAKER) (test habh=3034) 4.0 g/dL 3.5-5.0 BILIRUBIN TOTAL (BEAKER) (test csdv=554) 1.3 mg/dL 0.2-1.2 BILIRUBIN DIRECT (BEAKER) (test rimu=807) 0.4 mg/dL 0.1-0.5 ALKALINE PHOSPHATASE (BEAKER) (test zamc=154) 56 U/L 40-150 AST (SGOT) (BEAKER) (test rrim=157) 30 U/L 5-34 ALT (SGPT) (BEAKER) (test yjwl=101) 31 U/L 6-55 BASIC METABOLIC [id number] 00:17:00 Test Item Value Reference Range Comments SODIUM (BEAKER) (test 132 meq/L 136-145 itra=482) POTASSIUM (BEAKER) (test 3.4 meq/L 3.5-5.1 xqwx=213) CHLORIDE (BEAKER) (test 93 meq/L 98-107 soze=898) CO2 (BEAKER) (test 27 meq/L 22-29 qkqm=881) BLOOD UREA NITROGEN 17 mg/dL 7-21 (BEAKER) (test greq=203) CREATININE (BEAKER) (test 0.80 mg/dL 0.57-1.25 oouz=164) GLUCOSE RANDOM (BEAKER) 152 mg/dL 70-105 (test yfoi=090) CALCIUM (BEAKER) (test 9.2 mg/dL 8.4-10.2 disk=193) EGFR (BEAKER) (test 69 mL/min/1.73 sq m ESTIMATED GFR IS NOT owga=3814) ACCURATE CREATININE CLEARANCE IN PREDICTING GLOMERULAR FILTRATION RATE. ESTIMATED GFR IS NOT APPLICABLE FOR DIALYSIS PATIENTS. C-REACTIVE [id number] 00:17:00 Test Item Value Reference Range Comments C-REACTIVE PROTEIN (BEAKER) (test ispa=364) 0.55 mg/dL 0.00-0.50 PROTHROMBIN [id number] 00:07:00 Test Item Value Reference Range Comments PROTIME (BEAKER) (test lksm=727) 15.6 seconds 11.7-14.7 INR (BEAKER) (test dbfw=011) 1.3 <=5.9 RECOMMENDED COUMADIN/WARFARIN INR THERAPY RANGESSTANDARD DOSE: 2.0 - 3.0 Includes: PROPHYLAXIS forvenous thrombosis, systemic embolization; TREATMENT for venous thrombosis and/or pulmonary embolus.HIGH RISK: Target INR is 2.5-3.5 for patients with mechanical heart valves.CBC W/PLT COUNT & AUTO [id number] 00:01:00 Test Item Value Reference Range Comments WHITE BLOOD CELL COUNT (BEAKER) (test cnmy=963) 9.3 K/ L 3.5-10.5 RED BLOOD CELL COUNT (BEAKER) (test eftk=669) 4.77 M/ L 3.93-5.22 HEMOGLOBIN (BEAKER) (test mcku=292) 15.6 GM/DL 11.2-15.7 HEMATOCRIT (BEAKER) (test qubp=780) 45.4 % 34.1-44.9 MEAN CORPUSCULAR VOLUME (BEAKER) (test rxid=422) 95.2 fL 79.4-94.8 MEAN CORPUSCULAR HEMOGLOBIN (BEAKER) (test 32.7 pg 25.6-32.2 gdus=337) MEAN CORPUSCULAR HEMOGLOBIN CONC (BEAKER) (test 34.4 GM/DL 32.2-35.5 wirl=620) RED CELL DISTRIBUTION WIDTH (BEAKER) (test 14.2 % 11.7-14.4 xpog=495) PLATELET COUNT (BEAKER) (test iswl=368) 166 K/CU MM 150-450 MEAN PLATELET VOLUME (BEAKER) (test pgrv=110) 10.6 fL 9.4-12.3 NUCLEATED RED BLOOD CELLS (BEAKER) (test 0 /100 WBC 0-0 ybdg=734) NEUTROPHILS RELATIVE PERCENT (BEAKER) (test 64 % tmpv=227) LYMPHOCYTES RELATIVE PERCENT (BEAKER) (test 26 % goak=278) MONOCYTES RELATIVE PERCENT (BEAKER) (test 8 % egcg=207) EOSINOPHILS RELATIVE PERCENT (BEAKER) (test 1 % hgjp=527) BASOPHILS RELATIVE PERCENT (BEAKER) (test 1 % inus=348) NEUTROPHILS ABSOLUTE COUNT (BEAKER) (test 5.97 K/ L 1.56-6.13 eivz=087) LYMPHOCYTES ABSOLUTE COUNT (BEAKER) (test 2.41 K/ L 1.18-3.74 xnzm=377) MONOCYTES ABSOLUTE COUNT (BEAKER) (test 0.77 K/ L 0.24-0.36 qbkp=290) EOSINOPHILS ABSOLUTE COUNT (BEAKER) (test 0.07 K/ L 0.04-0.36 nmzi=776) BASOPHILS ABSOLUTE COUNT (BEAKER) (test 0.05 K/ L 0.01-0.08 nins=517) IMMATURE GRANULOCYTES-RELATIVE PERCENT (BEAKER) 0 % 0-1 (test gkti=9629)
--- OUTSIDE RECORDS SUMMARY | 2020-01-18 09:36 | XMS REPORT ---
:1940 Author Organization eClinicalWorks Care Team Providers Name Role Phone MendezLuis Provider Role Unavailable Allergies, Adverse Reactions, Alerts Substance Reaction Event Type N.K.D.A. Info Not Available Non Drug Allergy Problems Problem Type Condition Code Onset Dates Condition Status Problem Primary osteoarthritis of right M17.11 Active knee Problem Pain, joint, knee, right M25.561 Active Assessment Pain, joint, knee, right M25.561 Active Assessment Primary osteoarthritis of right M17.11 Active knee Medications Medication Code System Code Instructions Start End Date Status Dosage Date Alphagan P [facility] 83392-104 Active not defined 1-05 Cranberry [facility] 22021-998 Active not defined 93 Xyzal ND 0 Active not defined Atorvastatin [facility] 98290-562 Active not defined Calcium 7-98 Caltrate 600+D [facility] 58547-617 Active not defined 9-07 Olmesartan [facility] 91652-419 Active not defined Medoxomil 4-77 Duloxetine HCl [facility] 21456-482 Active not defined 0-33 potassium NDC 0 Active not defined Xarelto [facility] 30746-396 Active not defined 7-10 Metolazone [facility] 43041-440 Active not defined 5-01 PreserVision/Lute [facility] 01518-227 Active not defined in 2-10 tylenol ND 0 Active not defined Furosemide [facility] 21949-240 Active not defined 9-10 Results No Known Results Summary Purpose eClinicalWorks Submission
--- OUTSIDE RECORDS SUMMARY | 2020-01-18 09:36 | XMS REPORT ---
:1940 Author Organization eClinicalWorks Care Team Providers Name Role Phone Luis Mendez Provider Role Unavailable Allergies, Adverse Reactions, Alerts Substance Reaction Event Type N.K.D.A. Info Not Available Non Drug Allergy Problems Problem Type Condition Code Onset Dates Condition Status Problem Primary osteoarthritis of right M17.11 Active knee Problem Pain, joint, knee, right M25.561 Active Assessment Pain in joint of right knee M25.561 Active Assessment Primary osteoarthritis of right M17.11 Active knee Medications Medication Code System Code Instructions Start End Date Status Dosage Date potassium NDC 0 Active not defined Xyzal NDC 0 Active not defined Cranberry [facility] [place] [address]267-128 Active not defined 93 Duloxetine HCl [facility] [place] 61020-727 Active not defined 0-33 Atorvastatin [facility] [place] 23418-495 Active not defined Calcium 7-98 tylenol NDC 0 Active not defined Caltrate 600+D NDC 0 Active not defined PreserVision/Lute [facility] [place] 06023-346 Active not defined in 2-10 Alphagan P [facility] [place] 42951-729 Active not defined 1-05 Olmesartan [facility] [place] 24213-215 Active not defined Medoxomil 4-77 Metolazone [facility] [place] 29454-471 Active not defined 5-01 [place] [address] Active not defined 9-10 Xarelto [facility] [place] 24285-433 Active not defined 7-01 Results No Known Results Summary Purpose eClinicalWorks Submission
--- OUTSIDE RECORDS SUMMARY | 2020-01-18 09:36 | XMS REPORT | Summary of Care ---
:1940 Author Organization [facility] Address [address] [place] [address] Care Team Providers Name Role Phone Irma Pennington MD Primary Care Provider Reason for Visit Reason Comments Refill Request Encounter Details Date Type Department Care Team Description 11/26/2019 Refill [facility] Pediatric and Irma Pennington, Refill Request Adult Primary Care- MD Enriquez [address] [place] [address] [address] [facility], [address] [place] [address] [place] [phone] Allergies No Known Allergiesdocumented as of this encounter (statuses as of 11/27/2019) Medications Medication Sig Dispensed Refills Start Date End Date Status CALCIUM Take by mouth. 0 Active CARBONATE/VITAMIN D3 (CALTRATE 600 + D ORAL) brimonidine tartrate Place 1 Drop in 0 Active (ALPHAGAN P each eye 3 (three) OPHTHALMIC) times daily as needed (eye dryness). KCL 10 mEq tablet Take 1 tablet by 180 tablet 3 09/22/2018 Active mouth 2 (two) times daily. metoprolol tartrate Take 1 tablet by 180 tablet 3 10/09/2018 Active 100 mg mouth 2 (two) tabletIndications: times daily. HTN (hypertension), benign furosemide (LASIX) 40 Take 2 tablets by 360 tablet 3 12/03/2018 Active mg tabletIndications: mouth every Essential morning and hypertension, benign evening. Keep on file. atorvastatin 40 mg Take 1 tablet by 90 tablet 3 12/03/2018 Active tabletIndications: mouth at bedtime. Other hyperlipidemia Keep on file. vit Take 1 capsule by 0 04/23/2019 Active C,Y-Zz-srrgx-lutein-z mouth 2 (two) eaxan (PRESERVISION times daily. AREDS-2) [id number] js-ugai-zn-mg CapIndications: Glaucoma of both eyes, unspecified glaucoma type DULOXETINE 20 mg TAKE 1 CAPSULE BY 90 capsule 0 08/31/2019 Active capsule MOUTH DAILY. KEEP ON FILE. METOLAZONE 5 mg TAKE 1 TABLET BY 12 tablet 3 09/21/2019 Active tabletIndications: MOUTH WEEKLY. TAKE Essential 30 MINUTES BEFORE hypertension, benign FUROSEMIDE. OLMESARTAN 40 mg TAKE 1 TABLET BY 90 tablet 3 10/09/2019 Active tabletIndications: MOUTH DAILY. KEEP Essential ON FILE. hypertension, benign rivaroxaban (XARELTO) TAKE 1 TABLET BY 90 tablet 3 10/02/2019 Active 15 mg MOUTH EVERY DAY tabletIndications: WITH EVENING atrial fibrillation MEAL.KEEP ON FILE. Indications: atrial fibrillation documented as of this encounter (statuses as of 11/27/2019) Active Problems Problem Noted Date Cerebrovascular accident (CVA), unspecified mechanism 05/15/2017 Stroke 05/14/2017 HTN (hypertension), benign HLD (hyperlipidemia) Osteoarthritis involving multiple joints on both sides of body Recurrent UTI (urinary tract infection) CHF (congestive heart failure) Atrial fibrillation Overview: on Xarelto documented as of this encounter (statuses as of 11/27/2019) Immunizations Name Administration Dates Next Due DTAP 09/11/2016 Influenza High Dose 07/27/2017, 07/02/2016 Influenza Virus Vaccine 07/14/2018 PPD (TB) 05/12/2019 Pneumococcal 13 Conjugate, PCV13 (Prevnar 13) 09/11/2016 Pneumococcal Polysaccharide, PPSV23 (PNEUMOVAX) 05/12/2019 Zoster(Zostavax)(Shingles) 09/22/2013 documented as of this encounter Social History Tobacco Use Types Packs/Day Years Used Date Never Smoker Smokeless Tobacco: Never Used Alcohol Use Drinks/Week oz/Week Comments No Sex Assigned at Date Recorded Not on file Job Start Date Occupation Industry Not on file Not on file Not on file Travel History Travel Start Travel End No recent travel history available. documented as of this encounter Last Filed Vital Signs Not on filedocumented in this encounter Plan of Treatment Health Maintenance Due Date Last Done Comments Medicare Wellness Visit 12/13/2003 Zoster Recombinant Vaccine (SHINGRIX) 11/17/2013 09/22/2013 (2 of 3) INFLUENZA VACCINE (#1) 2019 07/14/2018, 07/27/2017, 07/02/2016 Osteoporosis Screening 03/22/2026 03/22/2016 DTaP,Tdap,and Td Vaccines (2 - Tdap) 09/11/2026 09/11/2016 PNEUMOCOCCAL VACCINES 65+ Completed 05/12/2019, 09/11/2016 documented as of this encounter Results Not on filedocumented in this encounter Insurance Payer Benefit Plan Subscriber ID Effective Phone Address Type / Group Dates AETNA - AETNA [id number] 2013-Dacia HOFFMANN Medicare Adv MANAGED MEDICARE ADV nt [id number] [place] [address] documented as of this encounter
--- OUTSIDE RECORDS SUMMARY | 2020-01-18 09:37 | XMS REPORT | Summary of Care ---
:1940 Author Organization [facility] Address [address] [place] [address] Care Team Providers Name Role Phone Irma Pennington MD Primary Care Provider Reason for Visit Reason Comments Lab Results [facility] Encounter Details Date Type Department Care Team Description 12/08/2019 Telephone [facility] Dex Do MD Lab Results ([facility]) Specialties [place] [address] [facility] [address] [place], [place] [address] [address] [place], [place] [phone] [address] [phone] Allergies No Known Allergiesdocumented as of this encounter (statuses as of 12/08/2019) Medications Medication Sig Dispensed Refills Start Date [...] Take 1 capsule by 0 04/23/2019 Active C,L-Ce-ajaqz-lutein-z mouth 2 (two) eaxan (PRESERVISION times daily. AREDS-2) [phone] zy-yzkn-rz-mg CapIndications: Glaucoma of both eyes, unspecified glaucoma [...] as of this encounter (statuses as of 12/08/2019) Active Problems Problem Noted Date Cerebrovascular accident (CVA), unspecified mechanism 05/15/2017 Stroke 05/14/2017 HTN (hypertension), benign HLD (hyperlipidemia) Osteoarthritis involving multiple joints on both sides of body Recurrent UTI (urinary tract infection) CHF (congestive heart failure) Atrial fibrillation Overview: on Xarelto documented as of this encounter (statuses as of 12/08/2019) Immunizations Name Administration Dates Next Due DTAP [...] Type / Group Dates AETNA - AETNA [id number] 2013-Dacia Lee [place] Medicare Adv MANAGED MEDICARE ADV nt [id number] [place] [address] documented as of this encounter
--- OUTSIDE RECORDS SUMMARY | 2020-01-18 09:37 | XMS REPORT | Summary of Care ---
:1940 Author Organization [facility] Address [address] [place] [address] Care Team Providers Name Role Phone Irma Pennington MD Primary Care Provider Encounter Details Date Type Department Care Team Description 11/09/2019 Orders Only [facility] Doctor Unassigned, No [address] [facility] [place] [address] [address] [place] [address] Allergies No Known Allergiesdocumented as of this [...] Take 1 capsule by 0 04/23/2019 Active C,O-Ao-tcsks-lutein-z mouth 2 (two) eaxan (PRESERVISION times daily. 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 documented in this encounter Insurance Payer Benefit Plan Subscriber ID Effective Phone Address Type / Group Dates AETNA - AETNA [id number] 2013-Dacia Lee [place] Medicare Adv MANAGED MEDICARE ADV nt [id number] [id number] [address] documented as of this encounter
--- OUTSIDE RECORDS SUMMARY | 2020-01-18 09:37 | XMS REPORT | Summary of Care ---
:1940 Author Organization [facility] Address [address] [place] [address] Care Team Providers Name Role Phone Irma Pennington MD Primary Care Provider Reason for Visit Reason Comments New Evaluation Personal and family history of colon cancer (Routine) Status Reason Specialty Diagnoses / Referred By Referred To Procedures Contact Contact Closed Pediatric Genetics Diagnoses Genetic testing for colon cancer Mauri Banks Procedures CONSULT/REFERRAL MEDICAL GENETICS ADULT & PEDI [address] [place] [address] Encounter Details Date Type Department Care Team Description 11/09/2019 Office Visit [facility] Padminii Dex Fair MD [facility] [address] [place] [address] Malignant neoplasm of colon, unspecified part of colon ( Primary Dx); Specialties Rosario Buckley [address] [place] [address] Family history of colon cancer [address] [place] [address] Allergies No Known Allergiesdocumented as of this encounter (statuses as of 11/29/2019) Medications Medication Sig Dispensed Refills Start Date [...] Take 1 capsule by 0 04/23/2019 Active C,D-Pz-bhrza-lutein-z mouth 2 (two) eaxan (PRESERVISION times daily. AREDS-2) [id number] dj-buxb-qx-mg CapIndications: Glaucoma of both eyes, unspecified glaucoma [...] as of this encounter (statuses as of 11/29/2019) Active Problems Problem Noted Date Cerebrovascular accident (CVA), unspecified mechanism 05/15/2017 Stroke 05/14/2017 HTN (hypertension), benign HLD (hyperlipidemia) Osteoarthritis involving multiple joints on both sides of body Recurrent UTI (urinary tract infection) CHF (congestive heart failure) Atrial fibrillation Overview: on Xarelto documented as of this encounter (statuses as of 11/29/2019) Immunizations Name Administration Dates Next Due DTAP [...] of this encounter Last Filed Vital Signs Vital Sign Reading Time Taken Comments Blood Pressure 131/81 11/09/2019 12:57 PM CARDIAC CATH TECHNOLOGIST Pulse 90 11/09/2019 12:57 PM CARDIAC CATH TECHNOLOGIST Temperature 36.2 C (97.1 F) 11/09/2019 12:57 PM CARDIAC CATH TECHNOLOGIST Respiratory Rate 20 11/09/2019 12:57 PM CARDIAC CATH TECHNOLOGIST Oxygen Saturation - - Inhaled Oxygen Concentration - - Weight 76.2 kg (167 lb 15.9 oz) 11/09/2019 12:57 PM CARDIAC CATH TECHNOLOGIST Height 165.1 cm (5' 5") 11/09/2019 12:57 PM CARDIAC CATH TECHNOLOGIST Body Mass Index 27.96 11/09/2019 12:57 PM CARDIAC CATH TECHNOLOGIST documented in this encounter Progress Notes Rosario Lopez - 11/09/2019 1:00 PM CSTInitial Cancer Genetics Consult Chief Complaint Personal and family history of colon cancer Referring Provider: Mauri Banks MD Patient History Irene Bauer is an 78 year old female who presents to clinic today to discuss her personal and family history of colon cancer. She was diagnosed with colon cancer at 71 and treated with a partial colectomy. She had a REHAN/BSO at 54 due to bleeding. She notes that her last colonoscopy was ~3 years agoand reports having polyps removed but less than 20 colon polyps cumulatively over her lifetime. Social History Mrs. Bauer is and currently resides in [place]. She is accompanied to today's appointment by her daughter, Vonnie. She denies tobacco and alcohol use. She is interested in learning whether her personal and family history of cancer could be due to a hereditary etiology and how this information may affect her relatives. She wants to give her children as much information as possible about their cancer risks. Family history Mrs. Bauer reports the following family history of cancer: Personal history of colon cancer at 71. Mother with colon cancer at 50. She was then diagnosed with a second colon cancer at 57. Maternal aunt with colon cancer at 78. Maternal grandfather with rectal cancer at 63. Half-aunt through her maternal grandfather with colon cancer at 49. Half-aunt through her maternal grandfather with "cancer in her chest area" in her 70's. A three-generation pedigree was obtained. See below. Mrs. Bauer reports paternal Iranian ancestry and maternal [place] and [place] ancestry. No known Ashkenazi Jain ancestry. She denies consanguinity. Impression Mrs. Bauer's personal history of colon cancer and maternal family history of colon cancer raises suspicion for an underlying hereditary cancer predisposition syndrome. A hereditary colorectal cancer panel was recommended. This test analyzes 19 genes associated with an increased risk for colorectal cancer (APC, AXIN2, BMPR1A, CHEK2, EPCAM, GREM1, MLH1, MSH2, MSH3, MSH6, MUTYH, NTHL1, PMS2, POLD1, POLE, PTEN, SMAD4, STK11, and TP53). Mrs. Bauer elected to proceed with multi-gene panel testing and her blood was drawn during the appointment. Discussion During the appointment, I discussed the difference between sporadic, familial, and hereditary colorectal cancer. Mrs. Bauer's personal history of colon cancer and maternal family history of a mother with two primary colon cancers, aunt with colon cancer, grandfather with rectal cancer, and half-aunt through her maternal grandfather with young colon cancer raises concern for an underlying hereditary cause. Based on the provided history, Mrs. Bauer meets NCCN criteria for a Ponce syndrome workup. I talked about how Ponce syndrome is the largest contributor to hereditary colorectal and endometrial cancer. This condition places individuals at an increased risk for several cancers including colorectal ,endometrial, ovarian, small bowel, urinary tract, prostate, hepatobiliary cancer, etc.. Medical management options for individuals with Ponce syndrome include increased screening and prophylactic surgery. Mrs Bauer met [place] guidelines for Ponec syndrome tumor testing (MSI and/or IHC), but records from pathology are not available for review to confirm these screening tests were performed and tailor her risk assessment. Her personal ad maternal family history of colorectal cancer also meet [place] criteria raising suspicion for Ponce syndrome. I also talked about how there are other genes associated with an increased risk for colorectal cancer- genes that we know a lot of information about, high penetrant genes, and other genes that we are still continuing to learn about, moderate to low penetrant genes. For the high penetrant genes, there are guidelines detailing screening recommendations and risk reduction options for patients. For some of the moderate to low penetrant genes though, there are currently no medical management guidelines and limited information about the associated cancers and specific cancer risks. I briefly the polyposis syndromes including Familial Adenomatous Polyposis (FAP), Attenuated Familial Adenomatous Polyposis(AFAP), and MUTYH-associated polyposis (MAP). I reviewed that these conditions lead to multiple adenomatous polyps and an increased risk for colorectal cancer. Mrs. Bauer's personal and family history do not appear suspicious for an underlying polyposis syndrome. Mrs. Bauer indicated that she wanted to learn more information about her cancer risks and was interested in pursuing panel testing. I discussed the implications of a positive, negative, and variant result and that if her hereditary colorectal cancer testing were to identify a pathogenic variant, then we would have a more in-depth conversation about the associated cancer risks and surveillance recommendations based on the pathogenic variant identified. The consent form was reviewed and signed by , and she had no further questions at this time. Recommendations and Decisions 1) Hereditary colorectal cancer multi-gene panel testing was recommended. Mrs. Bauer elected to pursue genetic testing and had her blood drawn during the appointment. 2) Mrs. Wynn test results should be available in 2-3 weeks and will be sent to genetics. She will receive a phone call to discuss them once they become available. 3) Mrs. Bauer was given educational material discussing hereditary colorectal cancer. I spent 80 minutes with Irene Bauer and >50% of the time was spent face- to-face counseling the patient about her options after performing a risk assessment. Rosario Lopez MS, [facility] Certified Genetic Counselor I, Dex Fair, am the supervising physician for this encounter and have reviewed the encounter and the note, scribed by Rosario Lopez, agree with the information discussed above, and it is both accurate and complete. Dex Fair MD Taylor Villagomez MA - 11/09/2019 1:00 PM CSTIrene Bauer is a 78 year old female brought by self presenting for a New Evaluation. Medications and allergies have been reviewed. documented in this encounter Plan of Treatment Name Type Priority Associated Diagnoses Order Schedule Misc. Sendout- Hereditary LAB Routine Malignant neoplasm of Ordered: 2019 Colorectal Cancer Testing colon, unspecified part of colon Family history of colon cancer Health Maintenance Due Date Last Done Comments Medicare Wellness Visit 12/13/2003 Zoster Recombinant Vaccine (SHINGRIX) 11/17/2013 09/22/2013 (2 of 3) INFLUENZA VACCINE (#1) 2019 07/14/2018, 07/27/2017, 07/02/2016 Osteoporosis Screening 03/22/2026 03/22/2016 DTaP,Tdap,and Td Vaccines (2 - Tdap) 09/11/2026 09/11/2016 PNEUMOCOCCAL VACCINES 65+ Completed 05/12/2019, 09/11/2016 documented as of this encounter Results Not on filedocumented in this encounter Visit Diagnoses Diagnosis Malignant neoplasm of colon, unspecified part of colon - Primary Family history of colon cancer Family history of malignant neoplasm of gastrointestinal tract documented in this encounter Insurance Payer Benefit Plan Subscriber ID Effective Phone Address Type / Group Dates AETNA - AETNA [id number] 2013-[address] Medicare Adv MANAGED MEDICARE ADV nt [id number] [place] [address] (Home) [address] [place] [address] documented as of this encounter
--- OUTSIDE RECORDS SUMMARY | 2020-01-18 09:37 | XMS REPORT | Summary of Care ---
:1940 Author Organization [address] [address] Care Team Providers Name Role Phone Irma Pennington MD Primary Care Provider Reason for Visit Reason Comments Results Hereditary Colorectal Cancer Testing Encounter Details Date Type Department Care Team Description 12/01/2019 Telephone [facility] [employer] Rosario Rosenbaum Results (Hereditary Specialties [address] Colorectal Cancer [place] [address] ) [address] [place] [address] [facility] [address] [place] [address] Allergies No Known Allergiesdocumented as of this encounter (statuses as of 12/01/2019) Medications Medication Sig Dispensed Refills Start Date [...] Take 1 capsule by 0 04/23/2019 Active C,R-Yr-jtxot-lutein-z mouth 2 (two) eaxan (PRESERVISION times daily. AREDS-2) [id number] vr-lrpo-ma-mg CapIndications: Glaucoma of both eyes, unspecified glaucoma [...] as of this encounter (statuses as of 12/01/2019) Active Problems Problem Noted Date Cerebrovascular accident (CVA), unspecified mechanism 05/15/2017 Stroke 05/14/2017 HTN (hypertension), benign HLD (hyperlipidemia) Osteoarthritis involving multiple joints on both sides of body Recurrent UTI (urinary tract infection) CHF (congestive heart failure) Atrial fibrillation Overview: on Xarelto documented as of this encounter (statuses as of 12/01/2019) Immunizations Name Administration Dates Next Due DTAP [...] Type / Group Dates AETNA - AETNA [id number] 2013-[address] Medicare Adv MANAGED MEDICARE ADV nt [id number] [place] [address] documented as of this encounter
--- OUTSIDE RECORDS SUMMARY | 2020-01-18 09:37 | XMS REPORT | Summary of Care ---
:1940 Author Organization [facility] Address [address] [place] [address] Care Team Providers Name Role Phone Irma Pennington MD Primary Care Provider Reason for Visit Reason Comments New Evaluation Personal and family history of colon cancer (Routine) Status Reason Specialty Diagnoses / Referred By Referred To Procedures Contact Contact Closed Pediatric Genetics Diagnoses Genetic testing for colon cancer Mauri Banks Procedures CONSULT/REFERRAL MEDICAL GENETICS ADULT & PEDI [address] [place] [address] Encounter Details Date Type Department Care Team Description 11/09/2019 Office Visit [facility] Padminii Dex Fair MD [facility] [address] [place] [address] Malignant neoplasm of colon, unspecified part of colon ( Primary Dx); Specialties Rosario Buckley [address] [place] [address] Family history of colon cancer [address] [place] [address] Allergies No Known Allergiesdocumented as [...] Take 1 capsule by 0 04/23/2019 Active C,V-Mw-oftaq-lutein-z mouth 2 (two) eaxan (PRESERVISION times daily. AREDS-2) [id number] ai-kpno-vo-mg CapIndications: Glaucoma of both eyes, unspecified glaucoma [...] Comments Blood Pressure 131/81 11/09/2019 12:57 PM REHABILITATION AIDE Pulse 90 11/09/2019 12:57 PM REHABILITATION AIDE Temperature 36.2 C (97.1 F) 11/09/2019 12:57 PM REHABILITATION AIDE Respiratory Rate 20 11/09/2019 12:57 PM REHABILITATION AIDE Oxygen Saturation - - Inhaled Oxygen Concentration - - Weight 76.2 kg (167 lb 15.9 oz) 11/09/2019 12:57 PM REHABILITATION AIDE Height 165.1 cm (5' 5") 11/09/2019 12:57 PM REHABILITATION AIDE Body Mass Index 27.96 11/09/2019 12:57 PM REHABILITATION AIDE documented in this encounter Progress Notes Rosario [...] Mrs. Bauer is and currently resides in [place]. She is accompanied to today's appointment by [...] obtained. See below. Mrs. Bauer reports paternal [place] ancestry and maternal [place] and [place] ancestry. No known Ashkenazi Jainism ancestry. She denies consanguinity. Impression Mrs. Bauer's [...] screening and prophylactic surgery. Mrs Bauer met [place] guidelines for Ponce syndrome tumor testing (MSI and/or IHC), but records from pathology are not available for review to confirm these screening tests were performed and tailor her risk assessment. Her personal ad maternal family history of colorectal cancer also meet [place] criteria raising suspicion for Ponce syndrome. I [...] performing a risk assessment. Rosario Lopez MS, [facility] [place] Certified Genetic Counselor I, [...] Type / Group Dates AETNA - AETNA [id number] 2013-Prese [address] Medicare Adv MANAGED MEDICARE ADV nt [id number] [place] [address] (Home) [address] [place] [address] documented as of this encounter
--- OUTSIDE RECORDS SUMMARY | 2020-01-18 09:38 | XMS REPORT | Summary of Care ---
:1940 Author Organization [facility] - [facility] Address [address] [place] [address] Care Team Providers Name Role Phone Irma Pennington MD Primary Care Provider Reason for Visit Reason Comments Refill Request Encounter Details Date Type Department Care Team Description 12/01/2019 Refill [facility] Pediatric and Irma Pennington, Refill Request Adult Primary Care- MD Enriquez [address] [place] [address] [address] [facility], [address] [place] [address] [place] [phone] Allergies No Known Allergiesdocumented as of this [...] Take 1 capsule by 0 04/23/2019 Active C,F-Mo-hjakc-lutein-z mouth 2 (two) eaxan (PRESERVISION times daily. AREDS-2) [id number] zi-jlai-qn-mg CapIndications: Glaucoma of both eyes, unspecified glaucoma [...] filedocumented in this encounter Visit Diagnoses Diagnosis Essential hypertension, benign documented in this encounter Insurance Payer Benefit Plan Subscriber ID Effective Phone Address Type / Group Dates AETNA - AETNA [id number] 2013-[address] Medicare Adv MANAGED MEDICARE ADV nt [id number] [place] [address] documented as of this encounter
--- OUTSIDE RECORDS SUMMARY | 2020-01-18 09:38 | XMS REPORT | Summary of Care ---
:1940 Author Organization [facility] - [facility] Address [address] [place] [address] Care Team Providers Name Role Phone Irma Pennington MD Primary Care Provider Reason for Visit Reason Comments Refill Request Encounter Details Date Type Department Care Team Description 12/26/2019 Refill [facility] Pediatric and Irma Pennington, Refill Request Adult Primary Care- MD Enriquez [address] [facility] [address] [facility] , [address] [facility] [address] [place] [address] [place] [address] Allergies No Known Allergiesdocumented as of this encounter (statuses as of 12/28/2019) Medications Medication Sig Dispensed Refills Start End Date Status Date CALCIUM Take by mouth. 0 Active CARBONATE/VITAMIN D3 (CALTRATE 600 + D ORAL) brimonidine Place 1 Drop in 0 Active tartrate (ALPHAGAN each eye 3 P OPHTHALMIC) (three) times daily as needed (eye dryness). KCL 10 mEq tablet Take 1 tablet by 180 tablet 3 Active mouth 2 (two) 8 times daily. furosemide (LASIX) Take 2 tablets by 360 tablet 3 Active 40 mg mouth every 9 tabletIndications: morning and Essential evening. Keep on hypertension, file. benign atorvastatin 40 mg Take 1 tablet by 90 tablet 3 Active tabletIndications: mouth at bedtime. 9 Other Keep on file. hyperlipidemia vit Take 1 capsule by 0 Active C,C-Sb-mcsdn-lutein mouth 2 (two) 9 -zeaxan times daily. (PRESERVISION AREDS-2) [id number] iz-mpkg-oh-mg CapIndications: Glaucoma of both eyes, unspecified glaucoma type DULOXETINE 20 mg TAKE 1 CAPSULE BY 90 capsule 0 Active capsule MOUTH DAILY. KEEP 9 ON FILE. METOLAZONE 5 mg TAKE 1 TABLET BY 12 tablet 3 Active tabletIndications: MOUTH WEEKLY. 9 Essential TAKE 30 MINUTES hypertension, BEFORE benign FUROSEMIDE. OLMESARTAN 40 mg TAKE 1 TABLET BY 90 tablet 3 Active tabletIndications: MOUTH DAILY. KEEP 9 Essential ON FILE. hypertension, benign rivaroxaban TAKE 1 TABLET BY 90 tablet 3 Active (XARELTO) 15 mg MOUTH EVERY DAY 9 tabletIndications: WITH EVENING atrial fibrillation MEAL.KEEP ON FILE. Indications: atrial fibrillation METOPROLOL TARTRATE TAKE 1 TABLET BY 180 tablet 3 Active 100 mg MOUTH TWICE A DAY 0 tabletIndications: HTN (hypertension), benign metoprolol tartrate Take 1 tablet by 180 tablet 3 12/28/19 Discontinued 100 mg mouth 2 (two) 8 20 tabletIndications: times daily. 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 Recurrent UTI (urinary tract infection) CHF (congestive heart failure) Atrial fibrillation Overview: on Xarelto documented as of this encounter (statuses as of 12/28/2019) Immunizations Name Administration Dates Next Due DTAP [...] filedocumented in this encounter Visit Diagnoses Diagnosis HTN (hypertension), benign Essential hypertension, benign documented in this encounter Insurance Payer Benefit Plan Subscriber ID Effective Phone Address Type / Group Dates AETNA - AETNA [id number] 2013-Dacia [place] Medicare Adv MANAGED MEDICARE ADV nt [id number] [facility] [place] [address] documented as of this encounter
[2020-01-18] MEDS ORDERED: NA CHLORIDE 0.9% 1,000 ML ONE (10:04)
[2020-01-18 10:06] LABS: Absolute Lymphocytes (CBC) 1.5 K/uL (0.7-4.9); Basophils % 0.8 % (0-1.3); Hematocrit 48.9 % (36.0-45.0); Lymphocytes % 21.4 % (15.3-44.8); MPV 9.9 fL (7.6-11.3); RBC Red Blood Cell Count 5.18 M/uL (3.86-4.86)
[2020-01-18 10:08] LABS: Protime INR 2.03
--- NOTE | 2020-01-18 10:12 | RAD REPORT ---
EXAM DESCRIPTION: CT - Head Brain Wo Cont - 01/18/2020 10:03 am CLINICAL HISTORY: DIZZINESS Headache, drowsiness COMPARISON: Ct Stroke Brain Wo Cont dated 05/14/2017; Head Brain Wo Cont dated 04/08/2017 TECHNIQUE: All CT scans are performed using dose optimization technique as appropriate and may inclu de automated exposure control or mA/KV adjustment according to patient size. FINDINGS: No intracranial hemorrhage, hydrocephalus or extra-axial fluid collection.Moderate general ized brain atrophy is present with mild periventricular and deep white matter chronic microvascular i schemic changes.No areas of brain edema or evidence of midline shift. The paranasal sinuses and mastoids are clear. The calvarium is intact. IMPRESSION: No acute intracranial abnormality.
--- NOTE | 2020-01-18 10:19 | RAD REPORT ---
EXAM DESCRIPTION: RAD - Chest Single View - 01/18/2020 10:11 am CLINICAL HISTORY: dizziness Chest pain. COMPARISON: Chest Pa And Lat (2 Views) dated 09/15/2019; Chest Pa And Lat (2 Views) dated 06/23/2018; Chest Single View dated 04/17/2018; Chest Single View dated 12/17/2017 FINDINGS: Portable technique limits examination quality. The lungs are grossly clear. The heart is upper limit of normal in size. No displaced fractures. IMPRESSION: No acute intrathoracic process suspected.
[2020-01-18 10:28] LABS: ALT/SGPT 33 U/L (12-78); AST/SGOT 31 U/L (15-37); Alkaline Phosphatase 104 U/L (45-117); BUN Blood Urea Nitrogen 85 mg/dL (7-18); Bicarbonate 31 mmol/L (21-32); Bilirubin Direct 0.3 mg/dL (0-0.2); Glucose Level 148 mg/dL (74-106); Magnesium 2.4 mg/dL (1.8-2.4); NT PRO-BNP 2560 pg/mL (<450); Potassium 4.8 mmol/L (3.5-5.1); Protein, Total 7.6 g/dL (6.4-8.2); Sodium Level 132 mmol/L (136-145); Troponin (Emerg Dept Use Only) < 0.02 ng/mL (0.0-0.045)
[2020-01-18 10:59] LABS: Thyroid Stimulating Hormone 5.69 uIU/mL (0.360-3.740)
--- NOTE | 2020-01-18 11:46 | ER ---
Nurse's Notes [facility] Name: Irene Bauer Age: 79 yrs Sex: Female : 1940 Arrival Date: 01/18/2020 Time: 09:37 Bed 7 Private MD: Mauri Banks Diagnosis: Dizziness and giddiness;Weakness;Atrial fibrillation and flutter;Unspecified kidney failure;Syncope and collapse-near Presentation: 01/17 09:30 Chief complaint: EMS states: called out for a lift assist, upon arrival pt was dizzy sv after standing and then sat down on a chair. Pt reports dizziness since yesterday, more so when up and moving but not when she is sitting down. BP 93/53 NY37-15p. BS-176 98.2 22G R wrist. Coronavirus screen: Proceed with normal triage. Patient denies a cough. Patient denies shortness of breath or difficulty breathing. Patient denies measured and/or subjective temperature greater than 100.4F prior to today's visit. Patient denies travel on a cruise ship or to a country the [facility] currently lists as an affected area. Patient denies contact with known and/or suspected case of COVID-19. Ebola Screen: No symptoms or risks identified at this time. Initial Sepsis Screen: Does the patient meet any 2 criteria? No. Patient's initial sepsis screen is negative. Does the patient have a suspected source of infection? No. Patient's initial sepsis screen is negative. Risk Assessment: Do you want to hurt yourself or someone else? Patient reports no desire to harm self or others. Onset of symptoms was January 17, 2020. 09:30 Method Of Arrival: EMS: [facility] sv 09:30 Acuity: ISELA 3 sv Triage Assessment: 09:43 General: Appears in no apparent distress. comfortable, well groomed, well developed, sv Behavior is calm, cooperative, appropriate for age. Pain: Denies pain. Neuro: Level of Consciousness is awake, alert, obeys commands, Oriented to person, place, time, situation, Moves all extremities. Full function Denies dizziness, Report dizziness when standing up and doing things. Cardiovascular: Patient's skin is warm and dry. Rhythm is atrial fibrillation Chest pain is denied. Respiratory: Airway is patent Respiratory effort is even, unlabored, Respiratory pattern is regular, symmetrical. Derm: Skin is pink, warm \T\ dry. Musculoskeletal: Range of motion: intact in all extremities. Historical: - Allergies: :42 NKA; sv - Home Meds: : Benicar HCT 40-25 mg Oral tab 1 tab once daily [Active]; Lasix 40 mg Oral tab 1 tab 2 sv times per day [Active]; Toprol XL 50 mg Oral Tb24 1 tab twice a day for Hypertension [Active]; Xarelto 15 mg Oral tab daily [Active]; atorvastatin 40 mg Oral tab 1 tab nightly [Active]; Spironolactone Oral [Active]; - PMHx: :42 Atrial Fib; Cataracts; colon cancer; CHF; Glaucoma; Hypertension; NOSE BLEEDS; sv osteoarthritis of spine; Osteopenia; Osteoporosis; TIA; - PSHx: :42 Lumbar fusion L4/5; Hysterectomy; Cataract; Pelvic floor; sv - Immunization history:: Adult Immunizations up to date. - Social history:: Smoking status: Patient denies any tobacco usage or history of. Patient uses alcohol, but reports only rare drinking. - Family history:: not pertinent. Screenin:45 Abuse screen: Denies threats or abuse. Denies injuries from another. Nutritional sv screening: No deficits noted. Tuberculosis screening: No symptoms or risk factors identified. Fall Risk None identified. Assessment: 10:30 Reassessment: Patient appears in no apparent distress at this time. Patient and/or hb family updated on plan of care and expected duration. Pain level reassessed. Patient is alert, oriented x 3, equal unlabored respirations, skin warm/dry/pink. 11:30 Reassessment: Patient appears in no apparent distress at this time. No changes from hb previously documented assessment. Patient and/or family updated on plan of care and expected duration. Pain level reassessed. Patient is alert, oriented x 3, equal unlabored respirations, skin warm/dry/pink. 12:09 Reassessment: Patient appears in no apparent distress at this time. No changes from sv previously documented assessment. Patient and/or family updated on plan of care and expected duration. Pain level reassessed. Patient is alert, oriented x 3, equal unlabored respirations, skin warm/dry/pink. 12:50 Reassessment: Patient appears in no apparent distress at this time. Patient and/or sv family updated on plan of care and expected duration. Pain level reassessed. Patient is alert, oriented x 3, equal unlabored respirations, skin warm/dry/pink. Vital Signs: 09:30 BP 116 / 89; Pulse 73; Resp 17; Temp 97.1; Pulse Ox 95% ; Weight 76.66 kg; Height 5 ft. sv 5 in. (165.10 cm); Pain 0/10; 10:42 BP 132 / 78; Pulse 73; Resp 15; Pulse Ox 95% ; sv 11:30 BP 138 / 81; Pulse 75; Resp 14; Pulse Ox 96% on R/A; hb 12:40 BP 138 / 81; Pulse 75; Resp 18; Pulse Ox 95% ; sv 09:30 Body Mass Index 28.12 (76.66 kg, 165.10 cm) sv ED Course: 09:30 classroom monitor on. Pulse ox on. NIBP on. Door closed. Head of bed elevated. sv 09:30 Maintain EMS IV. Dressing intact. Site clean \T\ dry. Gauge \T\ site: 22G R wrist. sv 09:37 Patient arrived in ED. sv 09:37 Praveena Rm, RONEN is Primary Nurse. sv 09:37 Td Yancey MD is Attending Physician. wan 09:41 Triage completed. sv 09:43 Arm band placed on. sv 09:45 Patient has correct armband on for positive identification. Bed in low position. Call sv light in reach. Side rails up X2. 09:52 Mauri Banks MD is Private Physician. am2 09:57 Initial lab(s) drawn, by de, sent to lab. em1 10:02 CT Head Brain wo Cont In Process Unspecified. EDMS 10:05 EKG done, by isotope technologist. reviewed by Td Yancey MD. at1 10:10 XRAY Chest (1 view) In Process Unspecified. EDMS 11:40 Mauri Banks MD is Hospitalizing Provider. wan 12:10 Urine Culture Sent. sv 12:10 CT Stone Protocol Sent. sv 12:50 No provider procedures requiring assistance completed. Patient admitted, IV remains in sv place. intact. Administered Medications: 10:38 Drug: NS 0.9% 1000 ml Route: IV; Rate: 125 ml/hr; Site: right wrist; sv 12:55 Follow up: Response: No adverse reaction; IV Status: Infusion continued upon admission sv 12:09 Drug: Pepcid 20 mg Route: IVP; Site: right wrist; sv 12:55 Follow up: Response: No adverse reaction sv 12:10 Drug: NS 0.9% 500 ml Route: IV; Rate: bolus; Site: right wrist; sv 12:55 Follow up: Response: No adverse reaction; IV Status: Completed infusion; IV Intake: sv 500ml Intake: 12:55 IV: 500ml; Total: 500ml. sv Outcome: 11:46 Decision to Hospitalize by Provider. wan 12:50 Admitted to Tele accompanied by tech, via stretcher, with chart, Other Report called by july Gloria RN 12:50 Condition: stable 12:50 Instructed on the need for admit. 12:56 Patient left the ED. sv Signatures: Dispatcher [employer] Praveena Kaye, RN Td Singer MD MD cha Martinez, Tong em1 Hailey Jameson, sheet finisher EKG Tat1 Juani Horton RN RN Hailey Vazquez am2
--- NOTE | 2020-01-18 11:46 | EDPHYS ---
Physician Documentation [facility] Name: Irene Bauer Age: 79 yrs Sex: Female : 1940 Arrival Date: 01/18/2020 Time: 09:37 Bed 7 Private MD: Mauri Banks ED Physician Td Yancey HPI: 01/17 10:25 This 79 yrs old Female presents to ER via EMS with complaints of Dizziness. wan 10:25 The patient presents with dizziness, feeling faint, generalized weakness, wan lightheadedness. Onset: The symptoms/episode began/occurred 1 day(s) ago. Context: occurred at home. Modifying factors: The symptoms are alleviated by lying down, the symptoms are aggravated by standing up, changing position. Associated signs and symptoms: The patient has no apparent associated signs or symptoms. Severity of symptoms: At their worst the symptoms were mild moderate in the emergency department the symptoms are unchanged. Patient's baseline: Neuro: alert and fully oriented. The patient has not experienced similar symptoms in the past. Historical: - Allergies: 09:42 NKA; sv - Home Meds: 09:42 Benicar HCT 40-25 mg Oral tab 1 tab once daily [Active]; Lasix 40 mg Oral tab 1 tab 2 sv times per day [Active]; Toprol XL 50 mg Oral Tb24 1 tab twice a day for Hypertension [Active]; Xarelto 15 mg Oral tab daily [Active]; atorvastatin 40 mg Oral tab 1 tab nightly [Active]; Spironolactone Oral [Active]; - PMHx: 09:42 Atrial Fib; Cataracts; colon cancer; CHF; Glaucoma; Hypertension; NOSE BLEEDS; sv osteoarthritis of spine; Osteopenia; Osteoporosis; TIA; - PSHx: 09:42 Lumbar fusion L4/5; Hysterectomy; Cataract; Pelvic floor; sv - Immunization history:: Adult Immunizations up to date. - Social history:: Smoking status: Patient denies any tobacco usage or history of. Patient uses alcohol, but reports only rare drinking. - Family history:: not pertinent. ROS: 10:25 Constitutional: Negative for fever, chills, and weight loss, Eyes: Negative for injury, wan pain, redness, and discharge, ENT: Negative for injury, pain, and discharge, Neck: Negative for injury, pain, and swelling, Respiratory: Negative for shortness of breath, cough, wheezing, and pleuritic chest pain, Abdomen/GI: Negative for abdominal pain, nausea, vomiting, diarrhea, and constipation, Back: Negative for injury and pain, : Negative for injury, bleeding, discharge, and swelling, MS/Extremity: Negative for injury and deformity, Skin: Negative for injury, rash, and discoloration, Psych: Negative for depression, anxiety, suicide ideation, homicidal ideation, and hallucinations, Allergy/Immunology: Negative for hives, rash, and allergies, Endocrine: Negative for neck swelling, polydipsia, polyuria, polyphagia, and marked weight changes, Hematologic/Lymphatic: Negative for swollen nodes, abnormal bleeding, and unusual bruising. 10:25 Cardiovascular: Positive for palpitations. 10:25 Neuro: Positive for near syncope, weakness. Exam: 10:25 Constitutional: This is a well developed, well nourished patient who is awake, alert, wan and in no acute distress. Head/Face: Normocephalic, atraumatic. Eyes: Pupils equal round and reactive to light, extra-ocular motions intact. Lids and lashes normal. Conjunctiva and sclera are non-icteric and not injected. Cornea within normal limits. Periorbital areas with no swelling, redness, or edema. ENT: Nares patent. No nasal discharge, no septal abnormalities noted. Tympanic membranes are normal and external auditory canals are clear. Oropharynx with no redness, swelling, or masses, exudates, or evidence of obstruction, uvula midline. Mucous membranes moist. Neck: Trachea midline, no thyromegaly or masses palpated, and no cervical lymphadenopathy. Supple, full range of motion without nuchal rigidity, or vertebral point tenderness. No Meningismus. Chest/axilla: Normal chest wall appearance and motion. Nontender with no deformity. No lesions are appreciated. Respiratory: Lungs have equal breath sounds bilaterally, clear to auscultation and percussion. No rales, rhonchi or wheezes noted. No increased work of breathing, no retractions or nasal flaring. Abdomen/GI: Soft, non-tender, with normal bowel sounds. No distension or tympany. No guarding or rebound. No evidence of tenderness throughout. Back: No spinal tenderness. No costovertebral tenderness. Full range of motion. Skin: Warm, dry with normal turgor. Normal color with no rashes, no lesions, and no evidence of cellulitis. MS/ Extremity: Pulses equal, no cyanosis. Neurovascular intact. Full, normal range of motion. Neuro: Awake and alert, GCS 15, oriented to person, place, time, and situation. Cranial nerves II-XII grossly intact. Motor strength 5/5 in all extremities. Sensory grossly intact. Cerebellar exam normal. Normal gait. Psych: Awake, alert, with orientation to person, place and time. Behavior, mood, and affect are within normal limits. 10:25 Cardiovascular: Rate: tachycardic, Rhythm: regular, Pulses: Pulses are 4+ in bilateral radial, brachial, femoral, popliteal, posterior tibial and and dorsalis pedis arteries.. Heart sounds: normal, Edema: is not appreciated, JVD: is not appreciated. 10:25 Neuro: Orientation: is normal, appropriate for stated age, no acute changes, Mentation: is normal, appropriate for stated age, no acute changes, Memory: is normal, appropriate for stated age, no acute changes, Cranial nerves: grossly normal, is grossly normal based on the patient's age, no acute changes, Cerebellar function: is grossly normal, is grossly normal based on the patient's age, no acute changes, Motor: is normal, is grossly normal based on the patient's age, Gait: not applicable Vital Signs: 09:30 BP 116 / 89; Pulse 73; Resp 17; Temp 97.1; Pulse Ox 95% ; Weight 76.66 kg; Height 5 ft. sv 5 in. (165.10 cm); Pain 0/10; 10:42 BP 132 / 78; Pulse 73; Resp 15; Pulse Ox 95% ; sv 11:30 BP 138 / 81; Pulse 75; Resp 14; Pulse Ox 96% on R/A; hb 12:40 BP 138 / 81; Pulse 75; Resp 18; Pulse Ox 95% ; sv 09:30 Body Mass Index 28.12 (76.66 kg, 165.10 cm) sv MDM: 09:37 Patient medically screened. [facility] 10:27 Data reviewed: vital signs, nurses notes, lab test result(s), EKG, radiologic studies, wan CT scan, plain films. 01/17 09:43 Order name: Basic Metabolic Panel; Complete Time: 11:36 sv 01/17 09:43 Order name: CBC with Diff; Complete Time: 11:36 sv 01/17 09:43 Order name: LFT's; Complete Time: 11:36 sv 01/17 09:43 Order name: Magnesium; Complete Time: 11:36 sv 01/17 09:43 Order name: NT PRO-BNP; Complete Time: 11:36 sv 01/17 09:43 Order name: PT-INR; Complete Time: 11:36 sv 01/17 09:43 Order name: Troponin (emerg Dept Use Only); Complete Time: 11:36 sv 01/17 09:43 Order name: XRAY Chest (1 view); Complete Time: 11:36 sv 01/17 09:52 Order name: CT Head Brain wo Cont; Complete Time: 11:36 wan 01/17 09:52 Order name: Urine Culture [facility] 01/17 09:52 Order name: TSH; Complete Time: 11:36 wan 01/17 09:52 Order name: Urine Culture [facility] 01/17 11:01 Order name: T4 Free; Complete Time: 11:36 [facility] 01/17 11:59 Order name: Urine Dipstick--Ancillary (enter results) 01/17 09:43 Order name: EKG; Complete Time: 09:44 sv 01/17 09:43 Order name: Cardiac monitoring; Complete Time: 09:43 sv 01/17 09:43 Order name: EKG - Nurse/Tech; Complete Time: 09:43 sv 01/17 09:43 Order name: IV Saline Lock; Complete Time: 09:43 sv 01/17 09:43 Order name: Labs collected and sent; Complete Time: 09:57 sv 01/17 09:43 Order name: O2 Per Protocol; Complete Time: 09:43 sv 01/17 09:43 Order name: O2 Sat Monitoring; Complete Time: 09:43 sv 01/17 09:52 Order name: Urine Dipstick-Ancillary (obtain specimen); Complete Time: 12:10 wan 01/17 11:39 Order name: CT Stone Protocol [facility] 01/17 11:39 Order name: Echo w/ Doppler [facility] 01/17 11:53 Order name: CONS Physician Consult; Complete Time: 12:56 EDMS 01/17 12:22 Order name: CT EDMS Administered Medications: 10:38 Drug: NS 0.9% 1000 ml Route: IV; Rate: 125 ml/hr; Site: right wrist; sv 12:55 Follow up: Response: No adverse reaction; IV Status: Infusion continued upon admission sv 12:09 Drug: Pepcid 20 mg Route: IVP; Site: right wrist; sv 12:55 Follow up: Response: No adverse reaction sv 12:10 Drug: NS 0.9% 500 ml Route: IV; Rate: bolus; Site: right wrist; sv 12:55 Follow up: Response: No adverse reaction; IV Status: Completed infusion; IV Intake: sv 500ml Disposition: 01/18/20 11:46 Hospitalization ordered by Mauri Banks for Inpatient Admission. Preliminary diagnosis are Dizziness and giddiness, Weakness, Atrial fibrillation and flutter, Unspecified kidney failure, Syncope and collapse - near. - Bed requested for Telemetry/MedSurg (Inpatient). - Status is Inpatient Admission. sv - Condition is Fair. - Problem is new. - Symptoms have improved. Signatures: Dispatcher [employer] EDMS Irene Caban Stephanie, RN RN sv Anderson, Corey, MD MD wan Corrections: (The following items were deleted from the chart) 12:10 11:46 Hospitalization Ordered by Mauri Banks MD for Inpatient Admission. Preliminary bd diagnosis is Dizziness and giddiness; Weakness; Atrial fibrillation and flutter; Unspecified kidney failure. Bed requested for Telemetry/MedSurg (Inpatient). Status is Inpatient Admission. Condition is Fair. Problem is new. Symptoms have improved. wan 12:14 12:10 01/18/2020 11:46 Hospitalization Ordered by Mauri Banks MD for Inpatient wan Admission. Preliminary diagnosis is Dizziness and giddiness; Weakness; Atrial fibrillation and flutter; Unspecified kidney failure. Bed requested for Telemetry/MedSurg (Inpatient). Status is Inpatient Admission. Condition is Fair. Problem is new. Symptoms have improved. bd 12:56 12:14 01/18/2020 11:46 Hospitalization Ordered by Mauri Banks MD for Inpatient sv Admission. Preliminary diagnosis is Dizziness and giddiness; Weakness; Atrial fibrillation and flutter; Unspecified kidney failure; Syncope and collapse - near. Bed requested for Telemetry/MedSurg (Inpatient). Status is Inpatient Admission. Condition is Fair. Problem is new. Symptoms have improved. wan
[2020-01-18] MEDS ORDERED: FAMOTIDINE 20 MG/2 ML VIAL IV ONE (11:48)
--- NOTE | 2020-01-18 12:20 | RAD REPORT ---
EXAM DESCRIPTION: CT - Stone Protocol - 01/18/2020 12:05 pm CLINICAL HISTORY: Flank pain. FLANK PAIN COMPARISON: CT ABD PELVIS W CONTRAST dated 06/23/2014 TECHNIQUE: Axial images were obtained without oral or IV contrast. Lack of contrast limits solid org an and vascular assessment. The [id number] spans the entirety of the system partially obscuring uppermost abdomen and lung bases. Coronal reformatted images were obtained and reviewed. All CT scans are performed using dose optimization technique as appropriate and may include automated exposure control or mA/KV adjustment according to patient size. FINDINGS: The lower lung pardo are clear. Imaged portions of the liver demonstrates several small low-density lesions, incompletely assessed on noncontrast study.Spleen appears unremarkable. The pancreas and adrenal glands are normal. No pathol ogic lymphadenopathy in the abdomen or pelvis. No urinary tract stones or obstructive uropathy. No bowel obstruction, free air, free fluid or abscess. The appendix is not identified as a discrete s tructure, however, no secondary findings of appendicitis are identified. Hardware is present in the lumbar spine with significant degenerative dextroscoliosis. IMPRESSION: No urinary tract stones or obstructive uropathy. Prominent lumbar degenerative changes.
[2020-01-18 12:49] LABS: Urine Blood NEGATIVE (NEG); Urine Glucose NEGATIVE (NEG); Urine Protein NEGATIVE (NEG)
[2020-01-18] MEDS ORDERED: ACETAMINOPHEN 325 MG TABLET PO PRN (12:58)
[2020-01-18] MEDS ORDERED: MORPHINE 2 MG/ML SYR IV PRN (12:58)
[2020-01-18] MEDS ORDERED: ALBUTEROL 2.5 MG/3 ML NEB SOL NEB PRN ×2 (12:58→15:00)
[2020-01-18] MEDS ORDERED: IPRATROPIUM BROM 0.5MG/2.5ML NEB PRN ×2 (12:58→15:00)
[2020-01-18] MEDS ORDERED: ONDANSETRON 4 MG/2 ML VIAL IV PRN (12:58)
[2020-01-18 13:45] VITALS: BMI 27.9
--- NOTE | 2020-01-18 16:48 | EKG ---
Test Date: 2020-01-18 Test Time: 09:44:05 Subway Guard: KENNY MEASUREMENT RESULTS: Intervals: Rate: 81 WI: QRSD: 78 QT: 382 QTc: 443 [place]: P: WI: QRS: -13 T: -34 INTERPRETIVE STATEMENTS: Atrial fibrillation Low voltage QRS Cannot rule out Anterior infarct, age undetermined Abnormal ECG Compared to ECG 06/23/2018 16:14:14 Low QRS voltage now present Ventricular premature complex(es) no longer present Myocardial infarct finding still present Electronically Signed On 01-18-20 16:47:16 CDT by Jeffery Rey
[2020-01-18] MEDS ORDERED: FUROSEMIDE 20 MG/ 2ML VIAL IV SCH (17:00)
[2020-01-18] MEDS: FAMOTIDINE 20 MG/2 ML VIAL IV SCH (20:33)
--- NOTE | 2020-01-18 20:50 | HP ---
Date of Admission: 01/18/2020 Chief Complaint: Feeling weak and dizzy. History Of Present Illness: This is an 79-year-old female patient who started to have this complaints of feeling weak, tired, and dizzy as of yesterday. Yesterday morning, she woke up, her systolic blood pressure was around 85 to 86 and all throughout the day. Blood pressure remained low. By the time afternoon, evening time, her systolic blood pressure was around 100 to 104. No fall. No injury. Today, she continued to feel weak and dizzy and when she was trying to get up from her walker, she felt so weak that she sat down back in the walker. She did not have any fall or injury. Subsequently, she came to ER after she was evaluated. She was admitted to hospital. She denies any fever, chills, nausea, vomiting, diarrhea. No black stool. No blood in stool. Allergies: NO KNOWN ALLERGIES. Medications: Atorvastatin 40 mg p.o. at bedtime, Alphagan eye drops, Caltrate plus D 1 tablet by mouth 2 times a day, duloxetine 20 mg p.o. daily with breakfast, furosemide 40 mg takes 2 tablets by mouth 2 times a day, metoprolol tartrate 100 mg takes 1 tablet by mouth 2 times a day, olmesartan 40 mg 1 tablet by mouth daily, Xarelto 15 mg 1 tablet by mouth daily, spironolactone 25 mg p.o. daily, and Nasacort nasal spray 1 spray each nostril 2 times a day. 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 Constitutional: As mentioned above. All other systems reviewed and negative. Past Medical History: Allergic rhinitis, impaired fasting, chronic atrial fibrillation, chronic kidney disease stage 3, leg edema, varicose veins, osteoarthritis at multiple sites, anxiety, depression, diverticulosis, colon cancer involving splenic flexure, hypertension, hyperlipidemia, chronic diastolic congestive heart failure. Past Surgical History: Appendectomy, partial colectomy on July 02, 2012, hysterectomy, bladder suspension, back surgery. Family History: Father had stroke, mother had colon cancer. Social History: Negative for smoking and alcohol use. Physical Examination: Vital Signs: Temperature 97.2, pulse 70, blood pressure 126/60, respiratory rate 18, oxygen saturation 95%. Height 5 feet 5 inches, weight 168 pounds. General: Awake, alert, oriented, not in distress. HEENT: Head atraumatic, normocephalic. Conjunctivae nonerythematous. Sclerae white. Mouth, no thrush or edema noted. Ears/Nose, no mass, lesion, discharge noted. Neck: Supple. No JVD, lymph nodes, bruit, thyromegaly noted. Lungs: Bilateral good equal air entry. Clear to auscultation. No rhonchi. No rales. Heart: Normal heart sounds, no murmur or gallop. Abdomen: Soft, bowel sounds normal. No guarding, rigidity, tenderness, mass, hepatosplenomegaly, distention, or bruit noted. Extremities: No leg edema. No calf tenderness. Skin: No rash, ulcer, cellulitis. Lymphatics: No lymph node enlargement in neck, supraclavicular, infraclavicular region. Neuro: No focal neurological deficit. Chest: Unremarkable. External Genitalia: Deferred. Rectal: Deferred. Laboratory Data: CAT scan of the abdomen per kidney stone protocol, no evidence of kidney stone. No hydronephrosis. Evidence of degenerative joint disease of lumbar spine. CAT scan of the head, negative for any acute intracranial changes. Chest x-ray, no acute cardiopulmonary changes. EKG, atrial fibrillation. White count 7.2, hemoglobin 16.2. Sodium 132, potassium 4.8, chloride 92, bicarb 31, BUN 85, creatinine 2.14, glucose 148. Liver function test, unremarkable. Troponin less than 0.02. TSH 5.69. ProBNP 2506. Urinalysis negative. Impression: 1. Acute kidney injury. 2. Volume depletion. 3. Atrial fibrillation, chronic. 4. Chronic diastolic congestive heart failure. 5. Hypertension. 6. Mixed hyperlipidemia. 7. Colon cancer, splenic flexure. 8. Diverticulosis. 9. Osteoarthritis, multiple sites. 10. Anxiety. 11. Depression. Plan: 1. Admit patient to hospital for further evaluation and management of this problem. The patient is appropriate for inpatient and is expected to spend 2 midnights in hospital. Patient received IV fluid bolus in the emergency room. We will not give any IV fluid at present time, give Xarelto 10 mg p.o. x1 dose tonight, and we will repeat blood work tomorrow. Consult Cardiology. Details were discussed with Dr. Rey. Echo will be done tomorrow and depending on tomorrow's blood, we will decide when to restart her diuretic medication, but we will have to make adjustment on the dose and maybe medication as well. Details and plan of treatment discussed with the patient. There was no evidence of any GI bleeding. She had a colonoscopy done fairly recently and it was unremarkable. ALISON Voice ID: [id number] MTDD
[2020-01-18] MEDS ORDERED: RIVAROXABAN 10 MG TABLET PO ONE (20:51)
[2020-01-18] MEDS ORDERED: TRIAMCINOLONE ACETONIDE NAS PRN (20:52)
[2020-01-18] MEDS ORDERED: BRIMONIDINE TARTRATE 0.15% 5 ML EACH EYE SCH (21:00)
[2020-01-18] MEDS: ACETAMINOPHEN 500 MG TAB PO SCH (21:55)
[2020-01-18] MEDS: ATORVASTATIN 40 MG TAB PO SCH (21:55)
[2020-01-19 07:59] LABS: Potassium 3.7 mmol/L (3.5-5.1)
--- NOTE | 2020-01-19 08:06 | CON ---
Date of Consultation: 01/18/2020 Reason For Consultation: Near syncope and atrial fibrillation. History Of Present Illness: Ms. Bauer is an 79-year-old woman. She is known to me from previous off ice visits. She has a history of chronic atrial fibrillation, on Xarelto 15 mg daily because of prev ious nosebleeds. She has a history of chronic diastolic congestive heart failure with mild pulmonary hypertension as of an echocardiogram in 2018. Has had a history of hypertension, TIA, and colon can cer. Came in with weakness for about 2 weeks and near syncope. She denied any nausea, vomiting. Ervin s had some diaphoresis. Denied any shortness of breath, chest pain. She denied any fever, cough, or chills. Past Medical History: As stated above. Allergies: NONE. Review of Systems: Negative. Social History: Negative. Family History: Noncontributory. Medications: At home include Benicar, Lasix, Aldactone, Xarelto, Lipitor, and Toprol. Physical Examination: General: She was feeling much better when I saw her. Vital Signs: Stable. She was afebrile. HEENT: Negative. Neck: Supple without any bruit, lymphadenopathy, JVD, or thyromegaly. Chest: Clear to auscultation and percussion. Cardiac: Revealed atrial fibrillation. No murmurs, gallops, or rubs. Abdomen: Benign. Extremities: Revealed no clubbing, cyanosis, or edema. Diagnostic Data: Chest x-ray was normal. Her EKG showed atrial fibrillation, rate control. Her BNP was 2560. TSH was 5.69. Her creatinine was 2.14. CT of her head was negative. CT of her abdomen and pelvis were negative. Impression And Plan: I think Mrs. Bauer's symptoms are more likely secondary to orthostatic hypotens ion and her antihypertensive therapy. Her creatinine indicates that she may be slightly dehydrated b ecause of her medication. I do not think we are dealing with any acute coronary syndrome or sick sin us syndrome. She has not had any pauses or bradycardia on telemetry. She is in chronic atrial fibri llation, on Xarelto. I would agree with the echocardiogram that has been ordered. I will see what t hat shows before we make any plans for discharging her. Nevertheless, she needs to be hydrated. I w ill discuss the case with Dr. Banks regarding changing her medical therapy. Maybe she can be on 1 diu retic instead of 2. I will follow her in the office as an outpatient after she goes home. EMILY Voice ID: [id number] Report ID: [id number]
--- NOTE | 2020-01-19 08:17 | RAD REPORT ---
EXAM DESCRIPTION: RAD - Chest Single View - 01/19/2020 8:05 am CLINICAL HISTORY: Chest Pain COMPARISON: Portable chest January 17, two view chest September 2018 TECHNIQUE: AP portable chest image was obtained 01/19/2020 8:05 am . FINDINGS: Lung volumes are low accentuating baseline interstitial pattern. Significant failure or vo lume overload are not suspected. No peripheral mass or consolidation. Cardiomegaly is present. No new vascular engorgement. No measurable pleural effusion and no pneumoth orax. No acute bony abnormality seen. No acute aortic findings suspected. IMPRESSION: Cardiomegaly and prominent interstitial lung pattern, both accentuated by shallow inspir ation. No new or progressive cardiopulmonary finding.
[2020-01-19 08:35] LABS: Absolute Lymphocytes (CBC) 1.7 K/uL (0.7-4.9); Basophils % 0.6 % (0-1.3); Hematocrit 46.8 % (36.0-45.0); Lymphocytes % 26.9 % (15.3-44.8); MPV 9.8 fL (7.6-11.3); RBC Red Blood Cell Count 5.02 M/uL (3.86-4.86)
[2020-01-19] MEDS ORDERED: METOPROLOL XL 50 MG TAB PO SCH (09:00)
[2020-01-19] MEDS: DULOXETINE 20 MG CAP PO SCH (09:38)
[2020-01-19] MEDS: CETIRIZINE HCL 5 MG TABLET PO SCH (09:39)
[2020-01-19] MEDS: FAMOTIDINE 20 MG/2 ML VIAL IV SCH (09:42)
--- NOTE | 2020-01-19 11:04 | ECHO ---
HEIGHT: 5 ft 5 in WEIGHT: 168 lb 0 oz DATE OF STUDY: 01/19/[address]: Td Yancey MD 2-DIMENSIONAL: YES M.MODE: YES DOPPLER: YES COLOR FLOW: YES TDS: PORTABLE: DEFINITY: BUBBLE STUDY: DIAGNOSIS: CONGESTIVE HEART FAILURE CARDIAC HISTORY: CATHERIZATION: NO SURGERY: NO PROSTHETIC VALVE: NO PACEMAKER: NO MEASUREMENTS (cm) DIASTOLIC (NORMALS) SYSTOLIC (NORMALS) IVSd 0.9 (0.6-1.2) LA Diam 3.8 (1.9-4.0) LVEF 78% LVIDd 3.7 (3.5-5.7) LVIDs 2.0 (2.0-3.5) %FS 46% LVPWd 1.1 (0.6-1.2) Ao Diam 2.4 (2.0-3.7) 2 DIMENSIONAL ASSESSMENT: RIGHT ATRIUM: NORMAL LEFT ATRIUM: NORMAL RIGHT VENTRICLE: NORMAL LEFT VENTRICLE: NORMAL TRICUSPID VALVE: NORMAL MITRAL VALVE: NORMAL PULMONIC VALVE: NORMAL AORTIC VALVE: NORMAL PERICARDIAL EFFUSION: NONE AORTIC ROOT: NORMAL LEFT VENTRICULAR WALL MOTION: NORMAL DOPPLER/COLOR FLOW: TRACE TRICUSPID REGURGITATION. NORMAL RIGHT VENTRICULAR SYSTOLIC PRESSURE. COMMENTS: NORMAL LEFT VENTRICULAR SIZE AND FUNCTION. TRACE TRICUSPID REGURGITATION. NORMAL RIGHT VENTRICULAR SYSTOLIC PRESSURE. NO WALL MOTION ABNORMALITY. NO EFFUSION. TECHNOLOGIST: MARRY GALO
[2020-01-19] MEDS: NA CHLORIDE 0.9% 1,000 ML IV SCH ×2 (11:42→23:20)
[2020-01-19] MEDS: RIVAROXABAN 10 MG TABLET PO SCH (16:02)
--- NOTE | 2020-01-19 19:57 | PN ---
Date of Progress Note: 01/19/2020 Subjective: Patient was seen this morning for followup. No new complaints or problems reported by moises sood. Lying in bed, not in distress. Objective: Vital Signs: Reviewed. HEENT: Unremarkable. Lungs: Clear to auscultation. HEART: Sounds normal. Abdomen: Soft. Bowel sounds normal. No guarding, rigidity, tenderness, or distention. Extremities: No leg edema. Laboratory Data: White count 6.2, hemoglobin 15.7, platelets 152. Sodium 134, potassium 3.7, chlori de 97, bicarb 28, BUN 75, creatinine 1.72, glucose 135. Impression: 1.Acute kidney injury. 2.Volume depletion. 3.Chronic atrial fibrillation. 4.Hypertension. Plan: We will go ahead and give IV fluid per order. Repeat blood work tomorrow morning. Ambulation was advised to her using her walker and she was advised to ambulate in her room and not to go outsid e the room. I will see her tomorrow for followup. Echo will be done today. Possible discharge to o home tomorrow depending on her condition. HITESH/MODL Voice ID: [id number] Report ID: [id number]
[2020-01-19] MEDS: ATORVASTATIN 40 MG TAB PO SCH (21:22)
[2020-01-19] MEDS: METOPROLOL XL 100 MG TAB PO SCH (21:22)
[2020-01-19] MEDS: ACETAMINOPHEN 500 MG TAB PO SCH (21:22)
[2020-01-20] MEDS: NA CHLORIDE 0.9% 1,000 ML IV SCH ×2 (03:05→16:06)
[2020-01-20 06:02] LABS: Magnesium 2.3 mg/dL (1.8-2.4); Potassium 3.9 mmol/L (3.5-5.1)
[2020-01-20 06:04] LABS: Absolute Lymphocytes (CBC) 2.1 K/uL (0.7-4.9); Basophils % 0.6 % (0-1.3); Hematocrit 44.7 % (36.0-45.0); Lymphocytes % 35.2 % (15.3-44.8); MPV 10.2 fL (7.6-11.3); RBC Red Blood Cell Count 4.74 M/uL (3.86-4.86)
[2020-01-20] MEDS: CETIRIZINE HCL 5 MG TABLET PO SCH (09:01)
[2020-01-20] MEDS: METOPROLOL XL 100 MG TAB PO SCH ×2 (09:01→21:44)
[2020-01-20] MEDS: DULOXETINE 20 MG CAP PO SCH (09:02)
[2020-01-20] MEDS: FAMOTIDINE 20 MG TAB PO SCH (09:02)
--- NOTE | 2020-01-20 15:53 | EKG ---
Test Date: 2020-01-19 Test Time: 15:39:16 Day Trader: KENNY MEASUREMENT RESULTS: Intervals: Rate: 72 NC: QRSD: 78 QT: 382 QTc: 418 [place]: P: NC: QRS: -48 T: -25 INTERPRETIVE STATEMENTS: Atrial fibrillation Low voltage QRS Left anterior fascicular block Cannot rule out Inferior infarct (masked by fascicular block?), age undetermined Cannot rule out Anterior infarct, age undetermined Abnormal ECG Compared to ECG 01/18/2020 09:44:05 Left anterior fascicular block now present Myocardial infarct finding still present Electronically Signed On 01-20-20 15:50:32 CDT by Jeffery Rey
[2020-01-20] MEDS: RIVAROXABAN 10 MG TABLET PO SCH (16:06)
[2020-01-20 21:41] VITALS: O2SAT 98
[2020-01-20] MEDS: ACETAMINOPHEN 500 MG TAB PO SCH (21:44)
[2020-01-20] MEDS: ATORVASTATIN 40 MG TAB PO SCH (21:44)
--- NOTE | 2020-01-21 00:30 | PN ---
Date of Progress Note: 01/20/2020 Subjective: The patient was seen this morning for followup. She was sitting in the chair, feeling m uch better today than yesterday. Weakness is better. No other complaints. Objective: Vital Signs: Reviewed. HEENT: Unremarkable. Lungs: Clear to auscultation. Heart: Sounds normal. Abdomen: Soft. Bowel sounds normal. No guarding, rigidity, tenderness, or d istention. Extremities: No leg edema. Laboratory Data: White count 6, hemoglobin 14.8, platelets 142. Sodium 135, potassium 3.9, chloride 99, bicarb 27, BUN 71, creatinine 1.81, glucose 113. Impression: 1.Acute kidney failure. 2.Volume depletion. 3.Chronic diastolic congestive heart failure. 4.Atrial fibrillation. 5.Hypertension. Plan: We will continue current medication. Continue to follow up with Dr. Rey. Echocardiogram showed normal ejection fraction. IV fluid will be given per order. We will repeat blood work tomorr ow. Hopefully, depending on blood test tomorrow, we will decide if patient can be discharged to go [facility] or not. Details were discussed with patient. HITESH/MODL Voice ID: [id number] Report ID: [id number]
[2020-01-21 05:30] LABS: Absolute Lymphocytes (CBC) 1.6 K/uL (0.7-4.9); Basophils % 0.9 % (0-1.3); Hematocrit 41.9 % (36.0-45.0); Lymphocytes % 28.3 % (15.3-44.8); MPV 9.6 fL (7.6-11.3); RBC Red Blood Cell Count 4.45 M/uL (3.86-4.86)
[2020-01-21 05:58] LABS: Magnesium 2.1 mg/dL (1.8-2.4); Potassium 4.2 mmol/L (3.5-5.1)
[2020-01-21] MEDS: NA CHLORIDE 0.9% 1,000 ML IV SCH (06:07)
[2020-01-21] MEDS: METOPROLOL XL 100 MG TAB PO SCH (08:40)
[2020-01-21] MEDS: CETIRIZINE HCL 5 MG TABLET PO SCH (08:40)
[2020-01-21] MEDS: DULOXETINE 20 MG CAP PO SCH (08:40)
[2020-01-21] MEDS: FAMOTIDINE 20 MG TAB PO SCH (08:40)
[2020-01-21 08:42] VITALS: BP 145/85
[2020-01-21 08:48] VITALS: TEMP 97.2
--- NOTE | 2020-01-21 20:47 | DS ---
Date of Discharge: 01/21/2020 History: Patient was seen this morning. She was feeling fine. Denied any complaints. Physical Examination: Vital Signs: Reviewed. HEENT: Unremarkable. Lungs: Clear to auscultation. Heart: Heart sounds normal. Abdomen: Soft, bowel sounds normal. No guarding, rigidity, tenderness, or distention. Extremities: No leg edema. Laboratory Data: Upon admission, white count 7.2, hemoglobin 16.2, platelets 180. Today, white coun t 5.5, hemoglobin 13.9, platelets 122. Chemistry from today; sodium 137, potassium 4.2, chloride 102 , bicarb 27, BUN 52, creatinine 1.18, glucose 114, magnesium 2.1. Upon admission, her BUN was 85, cr eatinine 2.14. Hospital Course: This is an 79-year-old female patient admitted to the hospital with complaints of f eeling weak and dizzy. Please see dictated H and P for more information. After patient was evaluate d in the ER, she was admitted to the hospital with acute kidney injury, volume depletion. She has ch ronic atrial fibrillation and takes Xarelto. Her Xarelto was continued, we gave her 10 mg due to her renal failure problem. Overall, her condition improved. IV fluid was given to her. She normally t akes diuretic medications at home, which is furosemide and spironolactone. She also takes olmesartan for her blood pressure. She has done well on combination of this medication as well as multiple oth er home medications she takes and has not required any change in medication in long time, but now aft er she presented to the hospital this time with this problem, we will have to make some changes in he r medication. Dr. Rey was consulted from Cardiology. Her echocardiogram showed normal ejection fraction. Overall, her condition has improved. She is feeling much better and today she was dischar [facility] to go home in stable condition. Final Diagnoses: 1.Acute kidney injury. 2.Volume depletion. 3.Atrial fibrillation, chronic. 4.Chronic diastolic congestive heart failure. 5.Hypertension. 6.Mixed hyperlipidemia. 7.Colon cancer, splenic flexure. 8.Diverticulosis. 9.Osteoarthritis, multiple sites. 10.Anxiety. 11.Depression. Discharge Medications And Instructions: Continue all prior home medication except following changes, 1.Stop spironolactone. 2.Stop olmesartan. 3.Take furosemide 40 mg 1 tablet by mouth daily started on 01/23/2020. 4.Check your weight every day. Check blood pressure 2-3 times a day and record it. 5.Follow up with my office next week on 01/25/2020. HITESH/MODL Voice ID: [id number] Report ID: [id number]
== END 2020-01-21 10:24 | disposition home or self-care (01) | DRG 683 ==
LOC: ER 09:33 → ERHOLD 11:49 → 2ND 12:44
PROVIDERS: ADMIT Internal Medicine; ATTEND Internal Medicine
DX: N17.9 Acute kidney failure, unspecified (principal); I48.20 Chronic atrial fibrillation, unspecified; I50.32 Chronic diastolic (congestive) heart failure; C18.5 Malignant neoplasm of splenic flexure; I13.0 Hypertensive heart and chronic kidney disease with heart failure and stage 1 through stage 4 chronic kidney disease, or unspecified chronic kidney disease; E86.9 Volume depletion, unspecified; Z79.01 Long term (current) use of anticoagulants; E78.2 Mixed hyperlipidemia; K57.90 Diverticulosis of intestine, part unspecified, without perforation or abscess without bleeding; M19.90 Unspecified osteoarthritis, unspecified site; F32.9 Major depressive disorder, single episode, unspecified; F41.9 Anxiety disorder, unspecified; Z79.899 Other long term (current) drug therapy; N18.3 Chronic kidney disease, stage 3 (moderate); Z90.49 Acquired absence of other specified parts of digestive tract; Z90.710 Acquired absence of both cervix and uterus; Z86.73 Personal history of transient ischemic attack (TIA), and cerebral infarction without residual deficits
CPT/HCPCS: 36415; 70450; 71045; 74176; 76377; 80048; 80076; 81003; 83735; 83880; 84439; 84443; 84484; 85025; 85610; 87086; 87088; 93005; 93306; 96361; 96374; 99285; J1940; J7030

== ENCOUNTER 2020-10-05 23:55 | Emergency (ER) | payer OTHER ==
--- OUTSIDE RECORDS SUMMARY | 2020-10-05 23:58 | XMS REPORT | Clinical Summary ---
:1940 Author Organization [facility] Address [address] [place] [address] Care Team Providers Name Role Phone Mauri Banks MD Primary Care Provider Allergies No Known Allergies Medications Medication Sig Dispensed Refills Start Date End Date Status digoxin (LANOXIN) 0.25 Take 250 mcg by 0 Active MG tablet mouth daily. olmesartan-hydrochlorot Take 1 tablet by 0 Active hiazide (BENICAR HCT) mouth daily. 40-25 mg per tablet rivaroxaban (XARELTO) Take 20 mg by 0 Active 20 mg Tab tablet mouth daily. Active Problems Problem Noted Date Cerebrovascular accident (CVA), unspecified mechanism 05/15/2017 Stroke 05/14/2017 Social History Tobacco Use Types Packs/Day Years Used Date Never Smoker Sex Assigned at Date Recorded Not on file Last Filed Vital Signs Not on file Plan of Treatment Not on file Results Not on fileafter 10/05/2019 Insurance Payer Benefit Plan / Subscriber ID Effective Dates Phone Addre ss Type Group AETNA - AETNA MEDICARE [id number] 2016-Win [phone] [address] MEDICARE MGD HMO POS PPO t 2 [id number] [place] [address] Advance Directives For more information, please contact: [phone] Code Status Date Activated Date Inactivated Comments Full Code 05/14/2017 9:26 PM 05/17/2017 4:51 PM This code status was determined by: Patient
--- OUTSIDE RECORDS SUMMARY | 2020-10-05 23:59 | XMS REPORT | Continuity of Care Document ---
:1940 Author Organization [facility] t Address [address] [place] [address] Care Team Providers Name Role Phone Kaushik Banks MD Primary Care Physician Aditi LEYVA, A Attending Clinician Marv LEYVA, W Attending Clinician Jessica Attending Clinician Unavailable Doctor Unassigned, Name Attending Clinician Unavailable RADHA Attending Clinician Unavailable RADHA Admitting Clinician Unavailable Problems Condition Condition Condition Status Onset Resolution Last Treating Co mments Source Name Details Category Date Date Treatment Clinician Date Cerebrovas Cerebrovas Disease Active [facility]: Medica l (CVA), (CVA), 00 Center unspecifie unspecifie d d mechanism mechanism Stroke St[facility] Disease Active [facility] Primary Primary Diagnosis [facility] k[facility] - [facility] right knee right knee l Outpat[facility] ent Clinics Pain in Pain in Diagnosis [facility] - right knee right knee Me moria l Outpati ent Clinics Allergies, Adverse Reactions, Alerts This patient has no known allergies or adverse reactions. Social History Social Habit Start Date Stop Date Quantity Comments Source Sex Assigned At [facility] Smoking Status Start Date Stop Date Source Never smoker [facility] Medications Ordered Filled Start Stop Current Ordering Indication Dosage Frequency Signature Comments Components Source Medication Medication Date Date Medication? Clinician (SIG) Name Name digoxin Yes 250ug QD Take 250 [facility] (LANOXIN) 8-04 mcg by [facility] - 0.25 MG 14:51: mouth Medical tablet 07 daily. [place] olmesartan- Yes 1{tbl} QD Take [address] hydrochloro 8-04 tablet by [place] - thiazide 14:51: mouth Medical (BENICAR 07 daily. [place] HCT) 40-25 mg per tablet rivaroxaban Yes 20mg QD Take [address] [facility] (XARELTO) 8-04 by mouth [facility] - 20 mg Tab 14:51: daily. Medica l tablet 07 [place] Alphagan P Alphagan P Yes Carlos not [facility] defined [facility] Xyzal Xyzal Yes Carlos not [facility] defined [facility] Atorvastati Atorvastati Yes Carlos not [facility] n Calcium n Calcium Diaz defined Marilee kes [facility] Olmesartan Olmesartan Yes Carlos not [facility] Medoxomil Medoxomil Diaz defined Marilee kes [facility] potassium potassium Yes Carlos not [facility] defined [facility] Metolazone Metolazone Yes Carlos not [facility] defined [facility] PreserVisio PreserVisio Yes Carlos not [facility] n/Lutein n/Lutein Diaz defined [facility] tylenol tylenol Yes Carlos not [facility] defined [facility] Furosemide Furosemide Yes Carlos not [facility] defined [facility] Caltrate Caltrate Yes Carlos not [facility] 600+D 600+D [facility] defined [facility] Xarelto Xarelto Yes Carlos not [facility] Diaz defined [facility] Cranberry Cranberry Yes Carlos not [facility] defined [facility] Duloxetine Duloxetine Yes Carlos not [facility] HCl HCl Diaz defined [facility] Diltiazem Diltiazem Yes Carlos TAKE [address] [facility] [address] HCl ER HCl ER Diaz CAPSULE BY [facility]TH [facility] A [facility] Procedures This patient has no known procedures. Encounters Start End Encounter Admission Attending Care Care Encounter Source Date/Time Date/Time Type Type Clinicians Facility Department ID 2020-07-18 2020-07-18 Refill [place], [facility] [id number] 00:00:00 00:00:00 Irma Fusebill [facility] [id number] [place] [id number] Professio [phone] [place] [address] [address] 2020-06-03 2020-06-03 Refill [place], [facility] [id number] 00:00:00 00:00:00 Irma A vidIQ [id number] [place] [id number] Professio [phone] [place] [address] [address] 2020-05-24 2020-05-24 [facility] [id number] [facility] [address] 11:00:00 11:00:00 [facility] ent Clinics 2020-05-17 2020-05-17 [facility] [id number] 09:08:00 09:08:00 [facility] 2020-05-02 2020-05-02 [facility] [id number] 10:30:00 10:30:00 [facility] 2020-03-03 2020-03-03 Refill [place], [facility] [id number] 00:00:00 00:00:00 [facility] [id number] [place] [id number] Professio [phone] [facility] 2020-03-01 2020-03-01 Telephone Aditi [facility] [id number] 00:00:00 00:00:00 Irma A Mina [id number] [place] [id number] Professio [phone] 2020-02-26 2020-02-26 Refill Aditi [facility] [id number] 00:00:00 00:00:00 Irma Derek Enriquez [id number] [place] [id number] Professio [phone] [address] 2019-12-26 2019-12-26 Refill Aditi [facility] [id number] 00:00:00 00:00:00 Irma Enriquez [id number] [place] [id number] Professio [phone] [address] 2019-12-08 2019-12-08 Telephone Dex Fair [facility] [id number] 00:00:00 00:00:00 W SPECIALTY [id number] [place] [id number] [place] [id number] [id number] 2019-12-01 2019-12-01 Telephone Sherryradha [facility] [id number] 00:00:00 00:00:00 Rosario SPECIALTY [id number] [place] [id number] [place] [phone] [facility] 2019-12-01 2019-12-01 Refill Aditi [facility] [id number] 00:00:00 00:00:00 Irma Derek [place] [id number] [place] [id number] Professio [phone] [address] 2019-11-09 2019-11-09 Office Jessica [facility] [id number] 12:48:32 13:48:32 Visit Rosario SPECIALTY [id number] [place] [id number] [place] [id number] [id number] 2019-11-09 2019-11-09 Orders Doctor AUBRIE [id number] 00:00:00 00:00:00 Only Unassigned, [place] [id number] [place] [facility] [phone] [id number] 2019-03-26 2019-03-26 [facility] [id number] 08:00:00 08:00:00 t [facility] Clinics 2019-01-12 2019-01-12 [facility] [id number] 11:00:00 11:00:00 t [facility] Clinics Results Test Description Test Time Test Comments Results Result Comments Source HEMOGLOBIN A1C 2017-05-16 21:48:00 Test Item Value Reference Range Interpretation Comme nts HEMOGLOBIN A1C (BEAKER) (test code = 368) 6.2 % 4.3-6.1 H [id number] 07:10:00 Test Item Value Reference Range Interpretation Comments MAGNESIUM (BEAKER) (test code = 1.9 mg/dL 1.6-2.6 627) BASIC METABOLIC [id number] 07:10:00 Test Item Value Reference Range Interpretation Comments SODIUM (BEAKER) 133 meq/L 136-145 L (test code = 381) POTASSIUM (BEAKER) 3.7 meq/L 3.5-5.1 (test code = 379) CHLORIDE (BEAKER) 101 meq/L 98-107 (test code = 382) CO2 (BEAKER) (test 24 meq/L 22-29 code = 355) BLOOD UREA NITROGEN 20 mg/dL 7-21 (BEAKER) (test code = 354) CREATININE (BEAKER) 0.69 mg/dL 0.57-1.25 (test code = 358) GLUCOSE RANDOM 133 mg/dL 70-105 H (BEAKER) (test code = 652) CALCIUM (BEAKER) 8.6 mg/dL 8.4-10.2 (test code = 697) EGFR (BEAKER) (test 82 mL/min/1.73 ESTIMA MUMTAZ GFR IS code = 1092) sq m NOT ACCURATE CREATININE CLEARANCE IN PREDICTING GLOMERULAR FILTRATION RATE . ESTIMATED GFR I S NOT APPLICABLE FOR DIALYSIS PATIEN TS. CBC (HEMOGRAM ONLY)2017-05-16 05:48:00 Test Item Value Reference Range Interpretation Comments WHITE BLOOD CELL COUNT (BEAKER) 7.2 K/ L 3.5-10.5 (test code = 775) RED BLOOD CELL COUNT (BEAKER) 4.72 M/ L 3.93-5.22 (test code = 761) HEMOGLOBIN (BEAKER) (test code = 15.3 GM/DL 11.2-15.7 410) HEMATOCRIT (BEAKER) (test code = 45.9 % 34.1-44.9 H 411) MEAN CORPUSCULAR VOLUME (BEAKER) 97.2 fL 79.4-94.8 H (test code = 753) MEAN CORPUSCULAR HEMOGLOBIN 32.4 pg 25.6-32.2 H (BEAKER) (test code = 751) MEAN CORPUSCULAR HEMOGLOBIN CONC 33.3 GM/DL 32.2-35.5 (BEAKER) (test code = 752) RED CELL DISTRIBUTION WIDTH 14.5 % 11.7-14.4 H (BEAKER) (test code = 412) PLATELET COUNT (BEAKER) (test 170 K/CU MM 150-450 code = 756) MEAN PLATELET VOLUME (BEAKER) 10.7 fL 9.4-12.3 (test code = 754) NUCLEATED RED BLOOD CELLS 0 /100 WBC 0-0 (BEAKER) (test code = 413) [id number] 05:45:00 Test Item Value Reference Range Interpretation Comments MAGNESIUM (BEAKER) 2.3 mg/dL 1.6-2.6 Specimen moderately (test code = 627) hemolyzed COMPREHENSIVE METABOLIC [id number] 05:45:00 Test Item Value Reference Range Interpretation Comments TOTAL PROTEIN 6.7 gm/dL 6.0-8.3 Specimen moder ately (BEAKER) (test code = hemoly zed 770) ALBUMIN (BEAKER) 3.7 g/dL 3.5-5.0 Specimen mo derately (test code = 1145) hemolyzed ALKALINE PHOSPHATASE 67 U/L 40-150 (BEAKER) (test code = 346) BILIRUBIN TOTAL 1.1 mg/dL 0.2-1.2 Specimen mod erately (BEAKER) (test code = hemoly zed 377) SODIUM (BEAKER) (test 129 meq/L 136-145 L code = 381) POTASSIUM (BEAKER) 5.2 meq/L 3.5-5.1 H Specimen moderately (test code = 379) hemolyzed CHLORIDE (BEAKER) 101 meq/L 98-107 (test code = 382) CO2 (BEAKER) (test 17 meq/L 22-29 L code = 355) BLOOD UREA NITROGEN 20 mg/dL 7-21 (BEAKER) (test code = 354) CREATININE (BEAKER) 0.74 mg/dL 0.57-1.25 Specimen moderately (test code = 358) hemolyzed GLUCOSE RANDOM 125 mg/dL 70-105 H (BEAKER) (test code = 652) CALCIUM (BEAKER) 8.6 mg/dL 8.4-10.2 (test code = 697) AST (SGOT) (BEAKER) 39 U/L 5-34 H Specimen moderately (test code = 353) hemolyzed ALT (SGPT) (BEAKER) 28 U/L 6-55 Specimen moderately (test code = 347) hemolyzed EGFR (BEAKER) (test 76 mL/min/1.73 ESTIMA MUMTAZ GFR IS code = 1092) sq m NOT ACCURATE CREATININE CLEARANCE IN PREDICTING GLOMERULAR FILTRATION RATE . ESTIMATED GFR I S NOT APPLICABLE FOR DIALYSIS PATIEN TS. [id number] 11:50:00 Test Item Value Reference Range Interpretation Comments RPR SCREEN (BEAKER) (test code = Nonreactive Nonreactive 420) BASIC METABOLIC [id number] 06:28:00 Test Item Value Reference Range Interpretation Comments SODIUM (BEAKER) 134 meq/L 136-145 L (test code = 381) POTASSIUM (BEAKER) 3.7 meq/L 3.5-5.1 Specimen slightly (test code = 379) hemolyzed CHLORIDE (BEAKER) 97 meq/L 98-107 L (test code = 382) CO2 (BEAKER) (test 28 meq/L 22-29 code = 355) BLOOD UREA NITROGEN 16 mg/dL 7-21 (BEAKER) (test code = 354) CREATININE (BEAKER) 0.70 mg/dL 0.57-1.25 Specimen slightly (test code = 358) hemolyzed GLUCOSE RANDOM 124 mg/dL 70-105 H (BEAKER) (test code = 652) CALCIUM (BEAKER) 9.0 mg/dL 8.4-10.2 (test code = 697) EGFR (BEAKER) (test 81 mL/min/1.73 ESTIMA MUMTAZ GFR IS code = 1092) sq m NOT ACCURATE CREATININE CLEARANCE IN PREDICTING GLOMERULAR FILTRATION RATE . ESTIMATED GFR I S NOT APPLICABLE FOR DIALYSIS PATIEN TS. FastingLIPID [id number] 06:28:00 Test Item Value Reference Range Interpretation Comments TRIGLYCERIDES (BEAKER) 223 mg/dL Speci men slightly (test code = 540) hemolyzed CHOLESTEROL (BEAKER) 176 mg/dL Specime n slightly (test code = 631) hemolyzed HDL CHOLESTEROL (BEAKER) 42 mg/dL (test code = 976) LDL CHOLESTEROL 89 mg/dL CALCULATED (BEAKER) (test code = 633) Triglyceride Reference Range: Low Risk <150 Borderline 150-199 High Risk 200-499 Very High Risk >=500Cholesterol Reference Range: Low Risk <200 Borderline 200-239 High Risk >240HDL Cholesterol Reference Range: Low Risk >=60 High Risk <40LDL Cholesterol Reference Range: Optimal <100 Near Optimal 100-129 Borderline 130-159 High 160-189 Very High >=190 FastingVITAMIN B12 AND [id number] 04:10:00 Test Item Value Reference Range Interpretation Comments VITAMIN B12 (BEAKER) (test code = 514 pg/mL 213-816 774) FOLATE (BEAKER) (test code = 362) > ng/mL >=7.0 Effective 08/31/2014: Folate Reference Range ChangeNew: >=7.0 Previous: >=5.4TSH/FREE T4 IF [id number] 02:52:00 Test Item Value Reference Range Interpretation Comments THYROID STIMULATING HORMONE 2.55 uIU/mL 0.35-4.94 (BEAKER) (test code = 772) SEDIMENTATION [id number] 01:10:00 Test Item Value Reference Range Interpretation Comments SEDIMENTATION RATE, ERYTHROCYTE 6 mm/HR 0-40 (BEAKER) (test code = 766) [id number] 00:35:00 Test Item Value Reference Range Interpretation Comments HOMOCYSTEINE (BEAKER) (test code = 8.5 umol/L 5.1-15.4 642) URINALYSIS W/ [id number] 00:30:00 Test Item Value Reference Range Interpretation Comments COLOR (BEAKER) (test code = Light Yellow 470) CLARITY (BEAKER) (test code = Clear 469) SPECIFIC GRAVITY UA (BEAKER) 1.006 1.001-1.035 (test code = 468) PH UA (BEAKER) (test code = 7.5 5.0-8.0 467) PROTEIN UA (BEAKER) (test code 20 mg/dL Negative A = 464) GLUCOSE UA (BEAKER) (test code Negative Negative = 365) KETONES UA (BEAKER) (test code Negative Negative = 371) BILIRUBIN UA (BEAKER) (test Negative Negative code = 462) BLOOD UA (BEAKER) (test code = Negative Negative 461) NITRITE UA (BEAKER) (test code Negative Negative = 465) LEUKOCYTE ESTERASE UA (BEAKER) Negative Negative (test code = 466) UROBILINOGEN UA (BEAKER) (test 0.2 mg/dL 0.2-1.0 code = 463) RBC UA (BEAKER) (test code = < /HPF 519) WBC UA (BEAKER) (test code = < /HPF 520) SQUAMOUS EPITHELIAL (BEAKER) 1 /HPF (test code = 516) SOURCE(BEAKER) (test code = Urine, Voided 8349) TROPONIN [id number] 00:23:00 Test Item Value Reference Range Interpretation Comments TROPONIN I (BEAKER) (test code = 0.01 ng/mL 0.00-0.03 397) Effective 08/31/2014: Reference Range ChangeNew: 0.00-0.03 Previous [...] acute neurological disease, and persistent tachyarrhythmia.HEPATIC FUNCTION [id number] 00:17:00 Test Item Value Reference Range Interpretation Comments TOTAL PROTEIN (BEAKER) (test code = 6.7 gm/dL 6.0-8.3 770) ALBUMIN (BEAKER) (test code = 1145) 4.0 g/dL 3.5-5.0 BILIRUBIN TOTAL (BEAKER) (test code 1.3 mg/dL 0.2-1.2 H = 377) BILIRUBIN DIRECT (BEAKER) (test 0.4 mg/dL 0.1-0.5 code = 706) ALKALINE PHOSPHATASE (BEAKER) (test 56 U/L 40-150 code = 346) AST (SGOT) (BEAKER) (test code = 30 U/L 5-34 353) ALT (SGPT) (BEAKER) (test code = 31 U/L 6-55 347) BASIC METABOLIC [id number] 00:17:00 Test Item Value Reference Range Interpretation Comments SODIUM (BEAKER) 132 meq/L 136-145 L (test code = 381) POTASSIUM (BEAKER) 3.4 meq/L 3.5-5.1 L (test code = 379) CHLORIDE (BEAKER) 93 meq/L 98-107 L (test code = 382) CO2 (BEAKER) (test 27 meq/L 22-29 code = 355) BLOOD UREA NITROGEN 17 mg/dL 7-21 (BEAKER) (test code = 354) CREATININE (BEAKER) 0.80 mg/dL 0.57-1.25 (test code = 358) GLUCOSE RANDOM 152 mg/dL 70-105 H (BEAKER) (test code = 652) CALCIUM (BEAKER) 9.2 mg/dL 8.4-10.2 (test code = 697) EGFR (BEAKER) (test 69 mL/min/1.73 ESTIMA MUMTAZ GFR IS code = 1092) sq m NOT ACCURATE CREATININE CLEARANCE IN PREDICTING GLOMERULAR FILTRATION RATE . ESTIMATED GFR I S NOT APPLICABLE FOR DIALYSIS PATIEN TS. C-REACTIVE [id number] 00:17:00 Test Item Value Reference Range Interpretation Comments C-REACTIVE PROTEIN (BEAKER) (test 0.55 mg/dL 0.00-0.50 H code = 676) PROTHROMBIN [id number] 00:07:00 Test Item Value Reference Range Interpretation Comments PROTIME (BEAKER) (test code = 15.6 seconds 11.7-14.7 H 759) INR (BEAKER) (test code = 370) 1.3 <=5.9 RECOMMENDED COUMADIN/WARFARIN INR THERAPY RANGESSTANDARD DOSE: 2.0 - 3.0 Includes: PROPHYLAXIS forvenous thrombosis, systemic embolization; TREATMENT for venous thrombosis and/or pulmonary embolus.HIGH RISK: Target INR is 2.5-3.5 for patients with mechanical heart valves.CBC W/PLT COUNT & AUTO DIFFERENTIAL 2017-05-15 00:01:00 Test Item Value Reference Range Interpretation Comments WHITE BLOOD CELL COUNT (BEAKER) 9.3 K/ L 3.5-10.5 (test code = 775) RED BLOOD CELL COUNT (BEAKER) 4.77 M/ L 3.93-5.22 (test code = 761) HEMOGLOBIN (BEAKER) (test code = 15.6 GM/DL 11.2-15.7 410) HEMATOCRIT (BEAKER) (test code = 45.4 % 34.1-44.9 H 411) MEAN CORPUSCULAR VOLUME (BEAKER) 95.2 fL 79.4-94.8 H (test code = 753) MEAN CORPUSCULAR HEMOGLOBIN 32.7 pg 25.6-32.2 H (BEAKER) (test code = 751) MEAN CORPUSCULAR HEMOGLOBIN CONC 34.4 GM/DL 32.2-35.5 (BEAKER) (test code = 752) RED CELL DISTRIBUTION WIDTH 14.2 % 11.7-14.4 (BEAKER) (test code = 412) PLATELET COUNT (BEAKER) (test 166 K/CU MM 150-450 code = 756) MEAN PLATELET VOLUME (BEAKER) 10.6 fL 9.4-12.3 (test code = 754) NUCLEATED RED BLOOD CELLS 0 /100 WBC 0-0 (BEAKER) (test code = 413) NEUTROPHILS RELATIVE PERCENT 64 % (BEAKER) (test code = 429) LYMPHOCYTES RELATIVE PERCENT 26 % (BEAKER) (test code = 430) MONOCYTES RELATIVE PERCENT 8 % (BEAKER) (test code = 431) EOSINOPHILS RELATIVE PERCENT 1 % (BEAKER) (test code = 432) BASOPHILS RELATIVE PERCENT 1 % (BEAKER) (test code = 437) NEUTROPHILS ABSOLUTE COUNT 5.97 K/ L 1.56-6.13 (BEAKER) (test code = 670) LYMPHOCYTES ABSOLUTE COUNT 2.41 K/ L 1.18-3.74 (BEAKER) (test code = 414) MONOCYTES ABSOLUTE COUNT (BEAKER) 0.77 K/ L 0.24-0.36 H (test code = 415) EOSINOPHILS ABSOLUTE COUNT 0.07 K/ L 0.04-0.36 (BEAKER) (test code = 416) BASOPHILS ABSOLUTE COUNT (BEAKER) 0.05 K/ L 0.01-0.08 (test code = 417) IMMATURE GRANULOCYTES-RELATIVE 0 % 0-1 PERCENT (BEAKER) (test code = 2801)
--- OUTSIDE RECORDS SUMMARY | 2020-10-05 23:59 | XMS REPORT | Summary of Care ---
:1940 Author Organization [facility] [employer] Address [address] [place] [address] Care Team Providers Name Role Phone Derek Pennington MD Primary Care Provider Kaushik Banks Primary Care Provider Reason for Visit Reason Comments Refill Request Encounter Details Date Type Department Care Team Description 07/18/2020 Refill [facility] Family Medicine Nam Pennington, Refill Request - Mina LEYVA [address] [place] [address] Dr fishman [address] [place] [address] [address] [address] [place], [place] [address] [phone] Allergies No Known Allergiesdocumented as of this encounter (statuses as of 07/21/2020) Medications Medication Sig Dispensed Refills Start Date End Date Status CALCIUM Take by mouth. 0 Acti ve CARBONATE/VITAMIN D3 (CALTRATE 600 + D ORAL) brimonidine tartrate Place 1 Drop in 0 Active (ALPHAGAN P each eye 3 (three) OPHTHALMIC) times daily as needed (eye dryness). KCL 10 mEq tablet Take 1 tablet by 180 tablet 3 09/22/2018 Active mouth 2 (two) times daily. furosemide (LASIX) 40 Take 2 tablets by 360 tablet 3 9 Active mg tabletIndications: mouth every Essential morning and hypertension, benign evening. Keep on file. atorvastatin 40 mg Take 1 tablet by 90 tablet 3 12/03/2018 Active tabletIndications: mouth at bedtime. Other hyperlipidemia Keep on file. vit Take 1 capsule by 0 04/23/2019 A ctive C,M-Uk-jsvld-lutein-z mouth 2 (two) eaxan (PRESERVISION times daily. AREDS-2) [id number] qj-vkiy-fd-mg CapIndications: Glaucoma of both eyes, unspecified glaucoma type METOLAZONE 5 mg TAKE 1 TABLET BY [...] TAKE 1 TABLET BY 180 tablet 3 12/28/2019 Active 100 mg MOUTH TWICE A DAY tabletIndications: HTN (hypertension), benign DULOXETINE 20 mg TAKE 1 CAPSULE BY 90 capsule 0 03/04/2020 Active capsuleIndications: MOUTH DAILY. KEEP Anxiety ON FILE. documented as of this encounter (statuses as of 07/21/2020) Active Problems Problem Noted Date Cerebrovascular accident (CVA), unspecified mechanism 05/15/2017 Stroke 05/14/2017 HTN (hypertension), benign HLD (hyperlipidemia) Osteoarthritis involving multiple joints on both sides of body Recurrent UTI (urinary tract infection) CHF (congestive heart failure) Atrial fibrillation Overview: on Xarelto documented as of this encounter (statuses as of 07/21/2020) Immunizations Name Administration Dates Next Due DTAP [...] Assigned at Date Recorded Not on file documented as of this encounter Last Filed Vital Signs Not on filedocumented in this encounter Plan of Treatment Health Maintenance Due Date Last Done Comments Depression Screening 1952 Medicare Wellness Visit 12/13/2003 Zoster Recombinant Vaccine (SHINGRIX) 11/17/2013 09/22/2013 (2 of 3) INFLUENZA VACCINE (#1) 2020 07/14/2018, 07/27/2017, 07/02/2016 Osteoporosis Screening 03/22/2026 03/22/2016 DTaP,Tdap,and Td Vaccines (2 - Tdap) 09/11/2026 09/11/2016 PNEUMOCOCCAL VACCINES 65+ Completed 05/12/2019, 09/11/2016 documented as of this encounter Results Not on filedocumented in this encounter Visit Diagnoses Diagnosis Anxiety Anxiety state, unspecified documented in this encounter Insurance Payer Benefit Plan Subscriber ID Effective Phone Address Typ e / Group Dates AETNA - AETNA [id number] 2013-[address] Medic are Adv MANAGED MEDICARE [place] [id number] [place] [address] documented as of this encounter
[2020-10-06] MEDS ORDERED: OXYMETAZOLINE HCL 0.05% 15ML NAS ONE (00:42)
[2020-10-06] MEDS ORDERED: LIDOCAINE 1% W/EPI 1:100,000 MDV 50 ML VIAL ONE (01:48)
--- NOTE | 2020-10-06 01:54 | EDPHYS ---
Physician Documentation [facility] Name: Irene Bauer Age: 79 yrs Sex: Female : 1940 Arrival Date: 10/05/2020 Time: 23:57 Bed 25 Private MD: ED Physician Elvia Lynn HPI: 10/06 01:50 This 79 yrs old Female presents to ER via EMS with complaints of Laceration. ma2 01:50 The patient presents with a laceration. The complaints affect the right ankle. Onset: ma2 The symptoms/episode began/occurred suddenly, 1 hour(s) ago. Associated signs and symptoms: Pertinent negatives nausea, swelling, vomiting, warmth. Severity of symptoms: At their worst the symptoms were mild, in the emergency department the symptoms are unchanged. The patient has not experienced similar symptoms in the past. Historical: - Allergies: 00:06 NKA; sg - Home Meds: 00:13 Xarelto 15 mg Oral tab daily [Active]; Benicar HCT 40-25 mg Oral tab 1 tab once daily sg [Active]; Toprol XL 50 mg Oral Tb24 1 tab twice a day for Hypertension [Active]; Cymbalta 20 mg oral cpDR 1 cap [Active]; diltiazem HCl 60 mg Oral cp12 1 cap 2 times per day [Active]; Lasix 40 mg Oral tab 1 tab 2 times per day [Active]; metolazone 5 mg oral tab 1 tab once a week [Active]; pantoprazole 40 mg oral TbEC 1 tab once daily [Active]; atorvastatin 40 mg oral tab 1 tab once daily [Active]; alphagan 5 ml nightly [Active]; Zyrtec 10 mg Oral tab 1 tab once daily [Active]; - PMHx: 00:06 Atrial Fib; Cataracts; CHF; colon cancer; Glaucoma; Hypertension; NOSE BLEEDS; sg osteoarthritis of spine; Osteopenia; Osteoporosis; TIA; - PSHx: 00:06 Lumbar fusion L4/5; Hysterectomy; Cataract; Pelvic floor; sg - Immunization history:: Adult Immunizations up to date. - Social history:: Smoking status: Patient denies any tobacco usage or history of. Patient/guardian denies using alcohol, street drugs, The patient lives with family. - Family history:: not pertinent. ROS: 01:50 Constitutional: Negative for fever, chills, and weight loss. ma2 01:50 All other systems are negative. Exam: 01:50 Constitutional: This is a well developed, well nourished patient who is awake, alert, ma2 and in no acute distress. Chest/axilla: Normal chest wall appearance and motion. Nontender with no deformity. No lesions are appreciated. Cardiovascular: Regular rate and rhythm with a normal S1 and S2. No gallops, murmurs, or rubs. Normal PMI, no JVD. No pulse deficits. Respiratory: Lungs have equal breath sounds bilaterally, clear to auscultation and percussion. No rales, rhonchi or wheezes noted. No increased work of breathing, no retractions or nasal flaring. Abdomen/GI: Soft, non-tender, with normal bowel sounds. No distension or tympany. No guarding or rebound. No evidence of tenderness throughout. Skin: Warm, dry with normal turgor. Normal color with no rashes, no lesions, and no evidence of cellulitis. MS/ Extremity: right LE laceration 1 cm Pulses equal, no cyanosis. Neurovascular intact. Full, normal range of motion. Neuro: Awake and alert, GCS 15, oriented to person, place, time, and situation. Cranial nerves II-XII grossly intact. Motor strength 5/5 in all extremities. Sensory grossly intact. Cerebellar exam normal. Normal gait. Vital Signs: 00:02 BP 132 / 70; Pulse 78; Resp 16; Temp 97.3; Pulse Ox 98% on R/A; Pain 0/10; sg 02:00 BP 130 / 89; Pulse 77; Resp 16; Temp 97.3; Pulse Ox 99% on R/A; Pain 0/10; sg Laceration: 01:50 Wound Repair of 1cm ( 0.4in ) subcutaneous laceration to right leg. Linear shaped.. ma2 Distal neuro/vascular/tendon intact. Anesthesia: Local anesthetic administered with 10 mls of 1% lidocaine w/ Epi. Wound prep: Simple cleansing. Skin closed with 1 2-0 Silk using simple sutures and sterile technique. Dressed with 4x4's. Patient tolerated well. MDM: 00:02 Patient medically screened. ma2 01:50 Differential diagnosis: contusion, abrasion, tendonitis. Data reviewed: vital signs, ma2 nurses notes. Counseling: I had a detailed discussion with the patient and/or guardian regarding: the historical points, exam findings, and any diagnostic results supporting the discharge/admit diagnosis, the presence of at least one elevated blood pressure reading (>120/80) during this emergency department visit, the need for outpatient follow up. Response to treatment: the patient's symptoms have markedly improved after treatment. Administered Medications: No medications were administered Disposition: 10/06/20 01:53 Discharged to Home. Impression: Laceration without foreign body, right lower leg. - Condition is Stable. - Discharge Instructions: Laceration Care, Adult, Slyz-bl-Xfij. - Medication Reconciliation Form, Thank You Letter, Antibiotic Education, Prescription Opioid Use form. - Follow up: Private Physician; When: Tomorrow; Reason: Continuance of care. - Notes: remove 1 suture in 1 week Signatures: Dispatcher [employer] EDAlan Tinoco RN RN sg Alzahri, Mohammad, MD MD ma2 Jil Ibrahim mw2 Corrections: (The following items were deleted from the chart) 02: 01:53 10/06/2020 01:53 Discharged to Home. Impression: Laceration without foreign body, mw2 right lower leg. Condition is Stable. Forms are Medication Reconciliation Form, Thank You Letter, Antibiotic Education, Prescription Opioid Use. Follow up: Private Physician; When: Tomorrow; Reason: Continuance of care. ma2
--- NOTE | 2020-10-06 01:54 | ER ---
Nurse's Notes [facility] Name: Irene Bauer Age: 79 yrs Sex: Female : 1940 Arrival Date: 10/05/2020 Time: 23:57 Bed 25 Private MD: Diagnosis: Laceration without foreign body, right lower leg Presentation: 10/06 00:02 Chief complaint: EMS states: pt was walking while using her walker, when she bumped the sg mendiola on her right leg against the foot brake cutting the skin. pt was not able to control the bleeding at home with pressure dressing, so called EMS for support. Coronavirus screen: Client denies travel out of the [place] in the last 14 days. At this time, the client does not indicate any symptoms associated with coronavirus-19. Ebola Screen: Patient negative for fever greater than or equal to 101.5 degrees Fahrenheit, and additional compatible Ebola Virus Disease symptoms Patient denies exposure to infectious person. Patient denies travel to an Ebola-affected area in the 21 days before illness onset. No symptoms or risks identified at this time. Complicating Factors: There are no complicating factors for this patient. Initial Sepsis Screen: Does the patient meet any 2 criteria? No. Patient's initial sepsis screen is negative. Does the patient have a suspected source of infection? No. Patient's initial sepsis screen is negative. Risk Assessment: Do you want to hurt yourself or someone else? Patient reports no desire to harm self or others. Onset of symptoms was October 06, 2020. Care prior to arrival: Bleeding of injury controlled. Transition of care: patient was not received from another setting of care. 00:02 Method Of Arrival: EMS: [facility] sg 00:02 Acuity: ISELA 4 sg Triage Assessment: 00:02 General: Appears in no apparent distress. well groomed, well developed, well nourished, sg Behavior is calm, cooperative, appropriate for age. Pain: Denies pain. Injury Description: Laceration sustained to right mendiola is clean, superficial, 0.5 to 2.5 cm long, was sustained less than 30 minutes ago. is bleeding a small amount. Historical: - Allergies: 00:06 NKA; sg - Home Meds: 00:13 Xarelto 15 mg Oral tab daily [Active]; Benicar HCT 40-25 mg Oral tab 1 tab once daily sg [Active]; Toprol XL 50 mg Oral Tb24 1 tab twice a day for Hypertension [Active]; Cymbalta 20 mg oral cpDR 1 cap [Active]; diltiazem HCl 60 mg Oral cp12 1 cap 2 times per day [Active]; Lasix 40 mg Oral tab 1 tab 2 times per day [Active]; metolazone 5 mg oral tab 1 tab once a week [Active]; pantoprazole 40 mg oral TbEC 1 tab once daily [Active]; atorvastatin 40 mg oral tab 1 tab once daily [Active]; alphagan 5 ml nightly [Active]; Zyrtec 10 mg Oral tab 1 tab once daily [Active]; - PMHx: 00:06 Atrial Fib; Cataracts; CHF; colon cancer; Glaucoma; Hypertension; NOSE BLEEDS; sg osteoarthritis of spine; Osteopenia; Osteoporosis; TIA; - PSHx: 00:06 Lumbar fusion L4/5; Hysterectomy; Cataract; Pelvic floor; sg - Immunization history:: Adult Immunizations up to date. - Social history:: Smoking status: Patient denies any tobacco usage or history of. Patient/guardian denies using alcohol, street drugs, The patient lives with family. - Family history:: not pertinent. Screenin:15 Abuse screen: Denies threats or abuse. Denies injuries from another. Nutritional sg screening: No deficits noted. Tuberculosis screening: No symptoms or risk factors identified. Never had TB. Fall Risk None identified. Assessment: 00:15 General: Appears in no apparent distress. comfortable, well groomed, well developed, sg well nourished, Behavior is calm, cooperative, appropriate for age. Pain: Denies pain. Neuro: Level of Consciousness is awake, alert, obeys commands, Oriented to person, place, time, Telescope Operator are equal bilaterally Speech is normal, Facial symmetry appears normal. Cardiovascular: Patient's skin is warm and dry. Chest pain is denied. Respiratory: Airway is patent Respiratory effort is even, unlabored, Respiratory pattern is regular, symmetrical. GI: No signs and/or symptoms were reported involving the gastrointestinal system. : No signs and/or symptoms were reported regarding the genitourinary system. EENT: No signs and/or symptoms were reported regarding the EENT system. Derm: Skin is pink, warm \T\ dry. Musculoskeletal: Circulation, motion, and sensation intact. Range of motion: intact in all extremities. Injury Description: Laceration sustained to right mendiola is clean, superficial, 0.5 to 2.5 cm long, was sustained less than 30 minutes ago. is bleeding a small amount. Vital Signs: 00:02 BP 132 / 70; Pulse 78; Resp 16; Temp 97.3; Pulse Ox 98% on R/A; Pain 0/10; sg 02:00 BP 130 / 89; Pulse 77; Resp 16; Temp 97.3; Pulse Ox 99% on R/A; Pain 0/10; sg ED Course: 10/05 23:57 Patient arrived in ED. rg4 10/06 00:02 Elvia Lynn MD is Attending Physician. ma2 00:02 Arm band placed on. sg 00:05 Triage completed. sg 00:08 Alan Luna RN is Primary Nurse. sg 00:15 Patient has correct armband on for positive identification. Bed in low position. Call sg light in reach. Side rails up X2. Pulse ox on. NIBP on. Warm blanket given. Head of bed elevated. 00:20 Wound care: to laceration located on right mendiola was cleaned with soap and water, sg dressed with 4X4s, Afrin Gauze, Patient tolerated well. 01:50 Assist provider with laceration repair on right mendiola that was 2.5 cm. or less using sg sutures. Set up tray. Performed by Elvia Lynn MD Dressed with 4X4s, Ron, Patient tolerated well. Patient did not have IV access during this emergency room visit. Administered Medications: No medications were administered Outcome: 01:53 Discharge ordered by . ma2 02:20 Discharged to home via wheelchair, with family. sg 02:20 Condition: good 02:20 Discharge instructions given to patient, family, Instructed on discharge instructions, follow up and referral plans. safety practices, wound care, Demonstrated understanding of instructions, follow-up care, wound care. 02:24 Patient left the ED. mw2 Signatures: Alan Luna, RN RN Latisha Hernandez 4 Elvia Lynn MD MD wv2 Jil Ibrahim mw2
[2020-10-06 02:29] VITALS: BP 132/70; TEMP 97.3; O2SAT 98
== END 2020-10-06 02:24 | disposition home or self-care (01) ==
LOC: ER 23:55
PROC: 0JQN0ZZ Repair Right Lower Leg Subcutaneous Tissue and Fascia, Open Approach (ICD-10-PCS; principal; 2020-10-06)
DX: S91.011A Laceration without foreign body, right ankle, initial encounter (principal); W22.8XXA Striking against or struck by other objects, initial encounter; Y93.01 Activity, walking, marching and hiking; Y92.9 Unspecified place or not applicable; I10 Essential (primary) hypertension; I50.9 Heart failure, unspecified; I48.91 Unspecified atrial fibrillation; Z79.01 Long term (current) use of anticoagulants
CPT/HCPCS: 99284

== ENCOUNTER 2021-02-17 17:03 | Emergency (ER) | payer OTHER ==
--- OUTSIDE RECORDS SUMMARY | 2021-02-17 17:07 | XMS REPORT | Continuity of Care Document ---
:1940 Author Organization [facility] t Address [address] [place] [address] Care Team Providers Name Role Phone Kaushik Banks MD Primary Care Physician Aditi LEYVA, A Attending Clinician Marv LEYVA W Attending Clinician Jessica Attending Clinician Unavailable [...] 05-14 [facility] Allergies, Adverse Reactions, Alerts This patient has no known allergies or adverse reactions. Social History Social Habit Start Date Stop Date Quantity Comments Source Sex Assigned At [facility] Smoking Status Start Date Stop Date Source Never smoker [facility] Medications Ordered Filled Start Stop Current Ordering Indication Dosage Frequency Signature Comments Components Source Medication Medication Date Date Medication? Clinician (SIG) Name Name digoxin Yes 250ug QD Take [facility] (LANOXIN) 8-04 mcg by [facility] - 0.25 MG 14:51: mouth Medical tablet 07 daily. Marcus olmesartan- Yes 1{tbl} QD Take [address] hydrochloro 8-04 tablet by [place] es - thiazide 14:51: mouth Medical (BENICAR 07 daily. Marcus HCT) 40-25 mg per tablet rivaroxaban Yes 20mg QD Take [address] [facility] (XARELTO) 8-04 by mouth [facility] - 20 mg Tab 14:51: daily. Medica l tablet 07 Marcus Alphagan P Alphagan P Yes Carlos not [...] [facility] Cranberry Cranberry Yes Carlos not [facility] Diaz defined [facility] Duloxetine Duloxetine Yes Carlos not [facility] HCl HCl Diaz defined [facility] Diltiazem Diltiazem Yes Carlos TAKE [address] [facility] [address] HCl ER HCl ER Diaz CAPSULE BY [facility] Procedures This patient has no known procedures. Encounters Start End Encounter Admission Attending Care Care Encounter Source Date/Time Date/Time Type Type Clinicians Facility Department ID 2021-01-30 2021-01-30 Outpatient [facility] [id number] [facility] 2020-12-19 2020-12-19 Outpatient [facility] [id number] [facility] 2020-07-18 2020-07-18 Refill [facility] [id number] 00:00:00 00:00:00 [facility] [id number] [place] [id number] Professio [phone] nal [facility] Office [address] 2020-06-03 2020-06-03 [facility] [id number] 00:00:00 00:00:00 [facility] [id number] [place] [id number] Professio [phone] [place] [address] [address] 2020-05-24 2020-05-24 Outpatient Roxanne Boogie [id number] 11:00:00 11:00:00 [facility] 2020-05-17 2020-05-17 Outpatient Roxanne Boogie [id number] [facility] 09:08:00 09:08:00 t [facility] 2020-05-02 2020-05-02 [facility] [id number] 10:30:00 10:30:00 t [facility] 2020-03-03 2020-03-03 Refill Aditi [facility] [id number] 00:00:00 00:00:00 Irma Enriquez [id number] [place] [id number] Professio [phone] [address] 2020-03-01 2020-03-01 Telephone Aditi [facility] [id number] 00:00:00 00:00:00 Irma Enriquez [id number] [place] [id number] Professio [phone] [address] 2020-02-26 2020-02-26 Refill Aditi [facility] [id number] 00:00:00 00:00:00 Irma Enriquez [id number] [place] [id number] Professio [phone] [address] 2019-12-26 2019-12-26 Refill Aditi [facility] [id number] 00:00:00 00:00:00 Irma Enriquez [id number] [place] [id number] Professio [phone] [address] 2019-12-08 2019-12-08 Telephone Dex Fair [facility] [id number] 00:00:00 00:00:00 W SPECIALTY [id number] [place] [id number] [place] [phone] [id number] 2019-12-01 2019-12-01 Telephone Jessica [facility] [id number] 00:00:00 00:00:00 Rosario SPECIALTY [id number] [place] [id number] [place] [phone] 161 2019-12-01 2019-12-01 [facility] [id number] 00:00:00 00:00:00 Irmatyree Enriquez [id number] [place] [id number] [place] [phone] formerly [facility] 231 [facility] 2019-11-09 2019-11-09 Office Jessica [facility] [id number] 12:48:32 13:48:32 Visit Rosario [place] [id number] [place] [id number] [place] [phone] [facility] 2019-11-09 2019-11-09 Orders Doctor AUBREI [id number] 00:00:00 00:00:00 Only Unassigned, [place] [id number] [place] [facility] [id number] [phone] [id number] 2019-03-26 2019-03-26 [facility] [id number] 08:00:00 08:00:00 t [facility] 2019-01-12 2019-01-12 [facility] [id number] 11:00:00 11:00:00 t [facility] Results Test Description Test Time Test Comments Results Result Comments Source HEMOGLOBIN A1C 2017-05-16 21:48:00 Test Item Value Reference Range Interpretation Comme nts HEMOGLOBIN A1C (BEAKER) (test code = 368) 6.2 % 4.3-6.1 H [id number] 07:10:00 Test Item Value Reference Range Interpretation Comments MAGNESIUM (BEAKER) (test code = 1.9 mg/dL 1.6-2.6 627) BASIC METABOLIC [id number] 07:10:00 Test Item Value Reference Range Interpretation [...] WBC 0-0 (BEAKER) (test code = 413) [id number] 05:45:00 Test Item Value Reference Range Interpretation Comments MAGNESIUM (BEAKER) 2.3 mg/dL 1.6-2.6 Specimen moderately (test code = 627) hemolyzed COMPREHENSIVE METABOLIC [id number] 05:45:00 Test Item Value Reference Range Interpretation [...] S NOT APPLICABLE FOR DIALYSIS PATIEN TS. [id number] 11:50:00 Test Item Value Reference Range Interpretation Comments RPR SCREEN (BEAKER) (test code = Nonreactive Nonreactive 420) BASIC METABOLIC [id number] 06:28:00 Test Item Value Reference Range Interpretation [...] GFR I S NOT APPLICABLE FOR DIALYSIS PATIFRANCISCO TS. FastingLIPID [id number] 06:28:00 Test Item Value Reference Range Interpretation [...] 160-189 Very High >=190 FastingVITAMIN B12 AND [id number] 04:10:00 Test Item Value Reference Range Interpretation Comments VITAMIN B12 (BEAKER) (test code = 514 pg/mL 213-816 774) FOLATE (BEAKER) (test code = 362) > ng/mL >=7.0 Effective 08/31/2014: Folate Reference Range ChangeNew: >=7.0 Previous: >=5.4TSH/FREE T4 IF [id number] 02:52:00 Test Item Value Reference Range Interpretation Comments THYROID STIMULATING HORMONE 2.55 uIU/mL 0.35-4.94 (BEAKER) (test code = 772) SEDIMENTATION [id number] 01:10:00 Test Item Value Reference Range Interpretation Comments SEDIMENTATION RATE, ERYTHROCYTE 6 mm/HR 0-40 (BEAKER) (test code = 766) [id number] 00:35:00 Test Item Value Reference Range Interpretation Comments HOMOCYSTEINE (BEAKER) (test code = 8.5 umol/L 5.1-15.4 642) URINALYSIS W/ [id number] 00:30:00 Test Item Value Reference Range Interpretation [...] 516) SOURCE(BEAKER) (test code = Urine, Voided 7387) TROPONIN [id number] 00:23:00 Test Item Value Reference Range Interpretation [...] acute neurological disease, and persistent tachyarrhythmia.HEPATIC FUNCTION [id number] 00:17:00 Test Item Value Reference Range Interpretation [...] = 31 U/L 6-55 347) BASIC METABOLIC [id number] 00:17:00 Test Item Value Reference Range Interpretation [...] NOT APPLICABLE FOR DIALYSIS PATIEN TS. C-REACTIVE [id number] 00:17:00 Test Item Value Reference Range Interpretation Comments C-REACTIVE PROTEIN (BEAKER) (test 0.55 mg/dL 0.00-0.50 H code = 676) PROTHROMBIN [id number] 00:07:00 Test Item Value Reference Range Interpretation [...] % 0-1 PERCENT (BEAKER) (test code = 8305)
--- NOTE | 2021-02-17 18:05 | RAD REPORT ---
EXAM DESCRIPTION: RAD - Ribs Left - 02/17/2021 6:00 pm CLINICAL HISTORY: PAIN COMPARISON: Chest Single View dated 01/19/2020 FINDINGS: The lateral left ninth and tenth ribs demonstrate nondisplaced fracture. No underlying pne umothorax.
[2021-02-17] MEDS ORDERED: HYDROCODONE/APAP 5/325 MG TAB ONE (20:59)
--- NOTE | 2021-02-17 21:22 | RAD REPORT ---
EXAM DESCRIPTION: CT - Head C Spine Cap Wo Con - 02/17/2021 8:57 pm CLINICAL HISTORY: Trauma, head and neck injury. Chest, abdomen and pelvis pain. fall COMPARISON: Head Brain Wo Cont dated 01/18/2020; Ribs Left dated 02/17/2021 TECHNIQUE: CT head without contrast. CT cervical spine without contrast with coronal and sagittal reformatted images. CT chest, abdomen and pelvis without contrast with coronal and sagittal reformatted images of the spi ne. All CT scans are performed using dose optimization technique as appropriate and may include automated exposure control or mA/KV adjustment according to patient size. FINDINGS: CT HEAD WITHOUT CONTRAST: No intracranial hemorrhage, hydrocephalus or extra-axial fluid collection. Moderate generalized brain atrophy is present with mild periventricular and deep white matter chronic microvascular ischemic ch anges. No areas of brain edema or midline shift. The paranasal sinuses and mastoids are clear. The calvarium is intact. Mild vertebral atherosclerosis . CT CERVICAL SPINE WITHOUT CONTRAST: No fracture or subluxation. Multilevel degenerative changes seen involving the mid and lower cervical spine. Degenerative 2 mm anterolisthesis of C3 on 4 and 3 mm degenerative anterolisthesis of C4 on 5 is present. The prevertebral soft tissues are normal in thickness. CT CHEST, ABDOMEN, PELVIS WITHOUT CONTRAST: NOTE: Lack of contrast is a significant limitation in the assessment of trauma related findings. Spec ifically, solid organ, vascular and bowel evaluation is significantly limited. The lungs are clear.No pneumothorax or pericardial/pleural fluid. No evidence of intra-abdominal visceral injury, free fluid or free air is seen within the above detai led limitations. Minimally displaced left lateral ninth and tenth rib fractures are seen. IMPRESSION: Minimally displaced left ninth and tenth rib fractures are present.
--- NOTE | 2021-02-17 22:12 | EDPHYS ---
Physician Documentation [facility] Name: Irene Bauer Age: 80 yrs Sex: Female : 1940 Arrival Date: 02/17/2021 Time: 17:11 Bed 16 Private MD: ED Physician Damien Garcia HPI: 02/17 20:30 This 80 yrs old Female presents to ER via Wheelchair with complaints of Fall cp Injury. 20:30 Details of fall: The patient fell from seated position, toilet in bathroom. Onset: The cp symptoms/episode began/occurred today. Associated injuries: The patient sustained injury to the chest, specifically the left lower lateral rib area. Historical: - Allergies: 17:21 NKA; sv - PMHx: 17:21 osteoarthritis of spine; Atrial Fib; colon cancer; Cataracts; Hypertension; NOSE sv BLEEDS; Osteopenia; TIA; Osteoporosis; CHF; Glaucoma; - PSHx: 17:21 Lumbar fusion L4/5; Hysterectomy; Cataract; Pelvic floor; sv - Immunization history:: Adult Immunizations unknown. - Social history:: Smoking status: Patient denies any tobacco usage or history of. ROS: 20:35 Constitutional: Negative for body aches, chills, fever, poor PO intake. cp 20:35 Neck: Negative for pain with movement, pain at rest, stiffness. cp 20:35 Cardiovascular: Positive for chest pain, of the left lower lateral rib area. 20:35 Respiratory: Negative for cough, shortness of breath, wheezing. 20:35 Abdomen/GI: Negative for nausea, vomiting, and diarrhea. 20:35 MS/extremity: Negative for injury or acute deformity, decreased range of motion. 20:35 Neuro: Negative for altered mental status, headache, loss of consciousness, syncope, weakness. 20:35 All other systems are negative. Exam: 20:40 Constitutional: The patient appears in no acute distress, alert, awake, cp non-diaphoretic, non-toxic, well developed, well nourished, uncomfortable. 20:40 Head/Face: Normocephalic, atraumatic. cp 20:40 Eyes: Periorbital structures: appear normal, Conjunctiva: normal, no exudate, no injection, Sclera: no appreciated abnormality, Lids and lashes: appear normal, bilaterally. 20:40 ENT: External ear(s): are unremarkable, Nose: is normal, Posterior pharynx: Airway: no evidence of obstruction, patent. 20:40 Neck: C-spine: vertebral tenderness, is not appreciated, crepitus, is not appreciated, ROM/movement: pain, is not appreciated, limited range of motion, is not appreciated. 20:40 Chest/axilla: Inspection: ecchymosis, that is mild, of the left lower lateral rib area Palpation: crepitus, is not appreciated, tenderness, that is moderate, of the left lower lateral rib area. 20:40 Cardiovascular: Rate: normal. 20:40 Respiratory: the patient does not display signs of respiratory distress, Respirations: labored breathing, is not present, accessory muscle usage, is absent, shallow respirations, that is mild, splinting, is not noted, tachypnea, is not appreciated, Breath sounds: are clear throughout, no decreased breath sounds, no stridor, no wheezing. 20:40 Abdomen/GI: Inspection: abdomen appears normal, Palpation: abdomen is soft and non-tender, in all quadrants. 20:40 Back: vertebral tenderness, is not appreciated. 20:40 Neuro: Orientation: to person, place \T\ time. Mentation: is normal, Motor: moves all fours, strength is normal. Vital Signs: 17:22 BP 121 / 70; Pulse 75; Resp 16; Temp 98.1(O); Pulse Ox 98% ; Weight 78.93 kg; Height 5 sv ft. 6 in. (167.64 cm); Pain 0/10; 22:00 BP 142 / 82; Pulse 78; Resp 18; Pulse Ox 99% on R/A; wh 17:22 Body Mass Index 28.09 (78.93 kg, 167.64 cm) sv MDM: 20:27 Patient medically screened. cp 20:45 Differential diagnosis: closed head injury, contusion, fracture, multiple trauma. cp 22:10 Data reviewed: vital signs, nurses notes, radiologic studies, CT scan. cp 22:10 Counseling: I had a detailed discussion with the patient and/or guardian regarding: the cp historical points, exam findings, and any diagnostic results supporting the discharge/admit diagnosis, radiology results, the need for outpatient follow up, a family practitioner, to return to the emergency department if symptoms worsen or persist or if there are any questions or concerns that arise at home. Response to treatment: the patient's symptoms have markedly improved after treatment, VSS. Pain markedly improved. Patient with no signs of respiratory distress. Incentive spirometry given. Will discharge to home for continued monitoring. 02/17 17:26 Order name: Ribs Left XRAY; Complete Time: 20:14 02/17 20:26 Interpretation: Report reviewed. 02/17 20:27 Order name: INCENTIVE SPIROMETRY 02/17 20:45 Order name: CT Traumagram (Head C Spine CAP wo con); Complete Time: 22:01 cp Administered Medications: 20:42 Drug: HYDROcodone-acetaminophen 5 mg-325 mg 1 tabs Route: PO; 22:34 Follow up: Response: No adverse reaction; Pain is decreased; RASS: Alert and Calm (0) Disposition: 22:40 Chart complete. 02/18 05:49 Co-signature as Attending Physician, Damien Garcia MD. [email or web address] Disposition: 02/17/21 22:12 Discharged to Home. Impression: Multiple fractures of ribs, left side. - Condition is Stable. - Discharge Instructions: Rib Fracture, Incentive Spirometer. - Prescriptions for Ultracet 37.5- 325 mg Oral Tablet - take 1 tablet by ORAL route every 6 hours - for up to 5 days; do not exceed 8 tablets per day.; 20 tablet. - Medication Reconciliation Form, Thank You Letter, Antibiotic Education, Prescription Opioid Use form. - Follow up: Private Physician; When: 2 - 3 days; Reason: Recheck today's complaints. - Problem is new. - Symptoms have improved. Signatures: Dispatcher [employer] Praveena Kaye RN RN sv Mickail, Joel, PA PA jmm Page, Corey, PA PA cp Habalo, Winsy, RN RN Damien Garcia MD MD [email or web address] Corrections: (The following items were deleted from the chart) 02/17 22:35 22:12 02/17/2021 22:12 Discharged to Home. Impression: Multiple fractures of ribs, left wh side. Condition is Stable. Forms are Medication Reconciliation Form, Thank You Letter, Antibiotic Education, Prescription Opioid Use. Follow up: Private Physician; When: 2 - 3 days; Reason: Recheck today's complaints. Problem is new. Symptoms have improved. cp
--- NOTE | 2021-02-17 22:12 | ER ---
Nurse's Notes [facility] Name: Irene Bauer Age: 80 yrs Sex: Female : 1940 Arrival Date: 02/17/2021 Time: 17:11 Bed 16 Private MD: Diagnosis: Multiple fractures of ribs, left side Presentation: 02/17 17:19 Chief complaint: Patient states: s/p fall this morning around 0730, c/o left flank sv pain. Denies LOC or head injury. Reports she slid off the [facility]. Care prior to arrival: None. Mechanism of Injury: Fall sitting position. Trauma event details: Injury occurred in the [facility], Injury occurred: at home. Injury occurred: February 17, 2021 Injury occurred at: 07:30. 17:19 Acuity: ISELA 4 sv 17:19 Method Of Arrival: Wheelchair sv 17:22 Coronavirus screen: Client denies travel out of the [place] in the last 14 days. At this sv time, the client does not indicate any symptoms associated with coronavirus-19. Ebola Screen: No symptoms or risks identified at this time. Initial Sepsis Screen: Does the patient meet any 2 criteria? No. Patient's initial sepsis screen is negative. Does the patient have a suspected source of infection? No. Patient's initial sepsis screen is negative. Risk Assessment: Do you want to hurt yourself or someone else? Patient reports no desire to harm self or others. Onset of symptoms was February 17, 2021. Triage Assessment: 17:24 General: Appears in no apparent distress. comfortable, Behavior is calm, cooperative, sv appropriate for age. Pain: Complains of pain in posterior aspect of left lateral abdomen. Neuro: Level of Consciousness is awake, alert, obeys commands. Respiratory: Airway is patent Respiratory effort is even, unlabored, Respiratory pattern is regular, symmetrical. Trauma Activation: Not Applicable Physician: ED Physician; Name: ; Notified At: ; Arrived At: Physician: General Surgeon; Name: ; Notified At: ; Arrived At: Physician: Radiology; Name: ; Notified At: ; Arrived At: Physician: Respiratory; Name: ; Notified At: ; Arrived At: Physician: Lab; Name: ; Notified At: ; Arrived At: Historical: - Allergies: 17:21 NKA; sv - PMHx: 17:21 osteoarthritis of spine; Atrial Fib; colon cancer; Cataracts; Hypertension; NOSE sv BLEEDS; Osteopenia; TIA; Osteoporosis; CHF; Glaucoma; - PSHx: 17:21 Lumbar fusion L4/5; Hysterectomy; Cataract; Pelvic floor; sv - Immunization history:: Adult Immunizations unknown. - Social history:: Smoking status: Patient denies any tobacco usage or history of. Screenin:30 Abuse screen: Denies threats or abuse. Denies injuries from another. Nutritional wh screening: No deficits noted. Tuberculosis screening: No symptoms or risk factors identified. Fall Risk Fall in past 12 months (25 points). Assessment: 17:26 Reassessment: Received VO from Dr Bc quintero. sv 20:30 General: Appears in no apparent distress. uncomfortable, Behavior is calm, cooperative, wh appropriate for age. Pain: Complains of pain in rib pain Pain currently is 7 out of 10 on a pain scale. Neuro: Level of Consciousness is awake, alert, obeys commands, Oriented to person, place, time, situation, Appropriate for age. Cardiovascular: Heart tones S1 S2. Respiratory: Airway is patent Respiratory effort is even, unlabored, Respiratory pattern is regular, symmetrical, Breath sounds are clear bilaterally. GI: Abdomen is flat, non-distended. : No signs and/or symptoms were reported regarding the genitourinary system. EENT: No signs and/or symptoms were reported regarding the EENT system. Derm: Skin is intact, is healthy with good turgor, Skin is pink, warm \T\ dry. normal. Musculoskeletal: Circulation, motion, and sensation intact. 22:00 Reassessment: Patient appears in no apparent distress at this time. No changes from previously documented assessment. Patient and/or family updated on plan of care and expected duration. Pain level reassessed. Patient is alert, oriented x 3, equal unlabored respirations, skin warm/dry/pink. Patient states feeling better. Patient states symptoms have improved. Vital Signs: 17:22 BP 121 / 70; Pulse 75; Resp 16; Temp 98.1(O); Pulse Ox 98% ; Weight 78.93 kg; Height 5 sv ft. 6 in. (167.64 cm); Pain 0/10; 22:00 BP 142 / 82; Pulse 78; Resp 18; Pulse Ox 99% on R/A; wh 17:22 Body Mass Index 28.09 (78.93 kg, 167.64 cm) ED Course: 17:11 Patient arrived in ED. mr 17:21 Triage completed. sv 17:24 Arm band placed on. sv 17:59 Ribs Left XRAY In Process Unspecified. EDMS 20:19 Td Gonsalez PA is PHCP. cp 20:19 Damien Garcia MD is Attending Physician. cp 20:30 Patient has correct armband on for positive identification. Bed in low position. Call light in reach. Side rails up X 1. Pulse ox on. NIBP on. 20:36 Eavn Boles, RN is Primary Nurse. 20:57 CT Traumagram (Head C Spine CAP wo con) In Process Unspecified. EDMS 22:33 No provider procedures requiring assistance completed. Patient did not have IV access during this emergency room visit. Administered Medications: 20:42 Drug: HYDROcodone-acetaminophen 5 mg-325 mg 1 tabs Route: PO; 22:34 Follow up: Response: No adverse reaction; Pain is decreased; RASS: Alert and Calm (0) Outcome: 22:12 Discharge ordered by MD. cp 22:33 Discharged to home via wheelchair, with family. 22:33 Condition: stable 22:33 Discharge instructions given to patient, family, Instructed on discharge instructions, follow up and referral plans. no drinking with medication, no driving heavy equipment, medication usage, POC Demonstrated understanding of instructions, follow-up care, medications, POC Prescriptions given X 1. 22:35 Patient left the ED. Signatures: Dispatcher [employer] [facility] Praveena Rm RN RN sv BayKeisha mr Td Gonsalez PA PA cp Evan Boles, RONEN HARDWICK Corrections: (The following items were deleted from the chart) 17:26 17:22 Pulse 75bpm; Resp 16bpm; Pulse Ox 98%; 78.93 kg; Height 5 ft. 6 in.; BMI: 28.0; sv Pain 0/10; sv
[2021-02-17 22:41] VITALS: TEMP 98.1
[2021-02-17 22:43] VITALS: BP 142/82; O2SAT 99
== END 2021-02-17 22:35 | disposition home or self-care (01) ==
LOC: ER 17:03
DX: S22.42XA Multiple fractures of ribs, left side, initial encounter for closed fracture (principal); W18.11XA Fall from or off toilet without subsequent striking against object, initial encounter; I10 Essential (primary) hypertension; Z85.038 Personal history of other malignant neoplasm of large intestine
CPT/HCPCS: 70450; 71250; 72125; 99284

== ENCOUNTER 2021-03-09 11:04 | Emergency (ER) | payer OTHER ==
--- OUTSIDE RECORDS SUMMARY | 2021-03-09 11:07 | XMS REPORT | Continuity of Care Document ---
:1940 Author Organization [facility] t Address [address] [place] [address] Care Team Providers Name Role Phone Kaushik [...] Date Quantity Comments Source Sex Assigned At [facility] Smoking Status Start Date Stop Date Source Never smoker [facility] Medications Ordered Filled Start Stop Current Ordering Indication Dosage Frequency Signature Comments Components Source Medication Medication Date Date Medication? Clinician (SIG) Name Name digoxin Yes 250ug QD Take [facility] (LANOXIN) 8-04 mcg by [facility] - 0.25 MG 14:51: mouth Medical tablet 07 daily. [place] olmesartan- Yes 1{tbl} QD Take [address] hydrochloro 8-04 tablet by [place] es - thiazide 14:51: mouth Medical (BENICAR 07 daily. [place] HCT) 40-25 mg per tablet rivaroxaban Yes 20mg QD Take [address] (XARELTO) 8-04 by mouth [facility] - 20 mg Tab 14:51: daily. Medica l tablet 07 [place] Alphagan P Alphagan P Yes Carlos not [...] - MOUTH [facility]oria TWICE A l DAY Outpati ent Clinics Procedures This patient has no known procedures. Encounters Start End Encounter Admission Attending Care Care Encounter Source Date/Time Date/Time Type Type Clinicians Facility Department ID 2021-02-20 2021-02-20 Outpatient [facility] [id number] [facility] 2021-01-30 2021-01-30 Outpatient [facility] [id number] [facility] 2020-12-19 2020-12-19 Outpatient [facility] [id number] [facility] St 00:00:00 00:00:00 [facility] Clinics 2020-07-18 2020-07-[address] [facility] [id number] 00:00:00 00:00:00 [facility] [id number] [place] [id number] Professio [phone] nal [address] 2020-06-03 2020-06-03 [facility] [id number] 00:00:00 00:00:00 [facility] [id number] [place] [id number] Professio [phone] nal 0[address] 2020-05-24 2020-05-24 Outpatient Roxanne Boogie [id number] [address] 11:00:00 11:00:00 [facility] 2020-05-17 2020-05-17 Outpatient Roxanne Boogie [id number] [address] 09:08:00 09:08:00 [facility] 2020-05-02 2020-05-02 [facility] [id number] 10:30:00 10:30:00 [facility] 2020-03-03 2020-03-03 Refill [place], [facility] [id number] 00:00:00 00:00:00 Irma A [place] [id number] [place] [id number] Professio [phone] [address] 2020-03-01 2020-03-01 Telephone Aditi [facility] [id number] 00:00:00 00:00:00 Irma A [place] [id number] [place] [id number] Professio [phone] [address] 2020-02-26 2020-02-26 Refill Aditi [facility] [id number] 00:00:00 00:00:00 Irma A [place] [id number] [place] [id number] Professio [phone] [address] 2019-12-26 2019-12-26 Refill Aditi [facility] [id number] 00:00:00 00:00:00 Irma A [place] [id number] [place] [id number] Professio [phone] [address] 2019-12-08 2019-12-08 Telephone Dex Fair [facility] [id number] 00:00:00 00:00:00 W SPECIALTY [id number] [place] [id number] COL[place]Y [id number] [facility] 2019-12-01 2019-12-01 Telephone Jessica [facility] [id number] 00:00:00 00:00:00 Rosario SPECIALTY [id number] ENCAMPMENT [id number] COLONY [id number] 161 2019-12-01 2019-12-01 [facility] [id number] 00:00:00 00:00:00 Irma Enriquez [id number] [place] [id number] Professbenedict [phone] [address] 2019-11-09 2019-11-09 Office Jessica [facility] [id number] 12:48:32 13:48:32 Visit Rosario SPECIALTY [id number] [place]AM[place] [id number] [place] [id number] 161 2019-11-09 2019-11-09 Orders Doctor AUBRIE [id number] 00:00:00 00:00:00 Only Unassigned, MIL [id number] [facility]course [facility] [id number] [id number] 2019-03-26 2019-03-26 [facility] [id number] 08:00:00 08:00:00 t [facility] ent [facility] 2019-01-12 2019-01-12 [facility] [id number] 11:00:00 11:00:00 t [facility] ent [facility] Results Test Description Test Time Test Comments Results Result Comments Source HEMOGLOBIN A1C 2017-05-16 21:48:00 Test Item Value Reference Range Interpretation Comme nts HEMOGLOBIN A1C (BEAKER) (test code = 368) 6.2 % 4.3-6.1 H [id number] 07:10:00 Test Item Value Reference Range Interpretation Comments MAGNESIUM (BEAKER) (test code = 1.9 mg/dL 1.6-2.6 627) BASIC METABOLIC [id number] 07:10:00 Test Item Value Reference Range Interpretation [...] WBC 0-0 (BEAKER) (test code = 413) [id number] 05:45:00 Test Item Value Reference Range Interpretation Comments MAGNESIUM (BEAKER) 2.3 mg/dL 1.6-2.6 Specimen moderately (test code = 627) hemolyzed COMPREHENSIVE METABOLIC [id number] 05:45:00 Test Item Value Reference Range Interpretation [...] S NOT APPLICABLE FOR DIALYSIS PATIEN TS. [id number] 11:50:00 Test Item Value Reference Range Interpretation Comments RPR SCREEN (BEAKER) (test code = Nonreactive Nonreactive 420) BASIC METABOLIC [id number] 06:28:00 Test Item Value Reference Range Interpretation [...] NOT APPLICABLE FOR DIALYSIS PATIEN TS. FastingLIPID [id number] 06:28:00 Test Item Value Reference Range Interpretation [...] 160-189 Very High >=190 FastingVITAMIN B12 AND [id number] 04:10:00 Test Item Value Reference Range Interpretation Comments VITAMIN B12 (BEAKER) (test code = 514 pg/mL 213-816 774) FOLATE (BEAKER) (test code = 362) > ng/mL >=7.0 Effective 08/31/2014: Folate Reference Range ChangeNew: >=7.0 Previous: >=5.4TSH/FREE T4 IF [id number] 02:52:00 Test Item Value Reference Range Interpretation Comments THYROID STIMULATING HORMONE 2.55 uIU/mL 0.35-4.94 (BEAKER) (test code = 772) SEDIMENTATION [id number] 01:10:00 Test Item Value Reference Range Interpretation Comments SEDIMENTATION RATE, ERYTHROCYTE 6 mm/HR 0-40 (BEAKER) (test code = 766) [id number] 00:35:00 Test Item Value Reference Range Interpretation Comments HOMOCYSTEINE (BEAKER) (test code = 8.5 umol/L 5.1-15.4 642) URINALYSIS W/ [id number] 00:30:00 Test Item Value Reference Range Interpretation [...] 516) SOURCE(BEAKER) (test code = Urine, Voided 2795) TROPONIN [id number] 00:23:00 Test Item Value Reference Range Interpretation [...] acute neurological disease, and persistent tachyarrhythmia.HEPATIC FUNCTION [id number] 00:17:00 Test Item Value Reference Range Interpretation [...] = 31 U/L 6-55 347) BASIC METABOLIC [id number] 00:17:00 Test Item Value Reference Range Interpretation [...] NOT APPLICABLE FOR DIALYSIS PATIEN TS. C-REACTIVE [id number] 00:17:00 Test Item Value Reference Range Interpretation Comments C-REACTIVE PROTEIN (BEAKER) (test 0.55 mg/dL 0.00-0.50 H code = 676) PROTHROMBIN [id number] 00:07:00 Test Item Value Reference Range Interpretation [...] % 0-1 PERCENT (BEAKER) (test code = 8221)
[2021-03-09 11:57] LABS: Absolute Lymphocytes (CBC) 1.3 K/uL (0.7-4.9); Basophils % 1.2 % (0-1.3); Hematocrit 49.5 % (36.0-45.0); Lymphocytes % 18.6 % (15.3-44.8); MPV 9.9 fL (7.6-11.3)
[2021-03-09 11:58] LABS: Protime INR 2.52
[2021-03-09 12:07] LABS: ALT/SGPT 21 U/L (12-78); AST/SGOT 21 U/L (15-37); Albumin 4.1 g/dL (3.4-5.0); Alkaline Phosphatase 135 U/L (45-117); BUN Blood Urea Nitrogen 45 mg/dL (7-18); Bicarbonate 32 mmol/L (21-32); Bilirubin Direct 0.3 mg/dL (0-0.2); Bilirubin Total 1.2 mg/dL (0.2-1.0); Glucose Level 138 mg/dL (74-106); Magnesium 2.4 mg/dL (1.8-2.4); NT PRO-BNP 2844 pg/mL (<450); Potassium 3.9 mmol/L (3.5-5.1); Protein, Total 7.8 g/dL (6.4-8.2); Sodium Level 134 mmol/L (136-145); Troponin (Emerg Dept Use Only) < 0.02 ng/mL (0.0-0.045)
--- NOTE | 2021-03-09 12:14 | RAD REPORT ---
EXAM DESCRIPTION: CT - Head Brain Wo Cont - 03/09/2021 12:04 pm CLINICAL HISTORY: DIZZINESS Headache, drowsiness COMPARISON: Head Brain Wo Cont dated 01/18/2020; Ct Stroke Brain Wo Cont dated 05/14/2017 TECHNIQUE: All CT scans are performed using dose optimization technique as appropriate and may inclu de automated exposure control or mA/KV adjustment according to patient size. FINDINGS: No intracranial hemorrhage, hydrocephalus or extra-axial fluid collection.Moderate general ized brain atrophy noted.No areas of brain edema or evidence of midline shift. The paranasal sinuses and mastoids are clear. The calvarium is intact. IMPRESSION: No acute intracranial abnormality.
[2021-03-09] MEDS ORDERED: NA CHLORIDE 0.9% 250 ML ONE (12:17)
--- NOTE | 2021-03-09 12:24 | RAD REPORT ---
EXAM DESCRIPTION: RAD - Chest Single View - 03/09/2021 12:13 pm CLINICAL HISTORY: low bp Chest pain. COMPARISON: Chest Single View dated 01/19/2020; Chest Single View dated 01/18/2020; Chest Pa And Lat (2 Views) dated 09/15/2019; Chest Pa And Lat (2 Views) dated 06/23/2018 FINDINGS: Portable technique limits examination quality. The lungs are grossly clear. The heart is upper limit of normal in size. No displaced fractures.
--- NOTE | 2021-03-09 14:39 | EDPHYS ---
Physician Documentation [facility] Name: Irene Bauer Age: 80 yrs Sex: Female : 1940 Arrival Date: 03/09/2021 Time: 11:08 Bed 19 Private MD: Mauri Banks ED Physician Arron Brumfield HPI: 03/09 14:50 This 80 yrs old Female presents to ER via Wheelchair with complaints of Low kdr BP. 14:50 When the patient awoke this morning, she noted that seemed dizzy and her BP was low kdr (88/60). When she would change position she would feel a little off balancebut otherwise was well. Onset: The symptoms/episode began/occurred suddenly, this morning. Severity of symptoms: At their worst the symptoms were mild in the emergency department the symptoms are unchanged. The patient has not experienced similar symptoms in the past. The patient has been recently seen by a physician: the patient's primary care provider, Dr. Banks. Historical: - Allergies: 11:16 NKA; ca1 - Home Meds: 11:16 alphagan 5 ml nightly [Active]; atorvastatin 40 mg Oral tab 1 tab once daily [Active]; ca1 Benicar HCT 40-25 mg Oral tab 1 tab once daily [Active]; Cymbalta 20 mg Oral cpDR 1 cap [Active]; diltiazem HCl 60 mg Oral cp12 1 cap 2 times per day [Active]; Lasix 40 mg Oral tab 1 tab 2 times per day [Active]; metolazone 5 mg Oral tab 1 tab once a week [Active]; pantoprazole 40 mg Oral TbEC 1 tab once daily [Active]; Spironolactone Oral [Active]; Toprol XL 50 mg Oral Tb24 1 tab twice a day for Hypertension [Active]; Xarelto 15 mg Oral tab daily [Active]; Zyrtec 10 mg Oral tab 1 tab once daily [Active]; - PMHx: 11:16 Atrial Fib; CHF; Cataracts; colon cancer; Glaucoma; NOSE BLEEDS; Hypertension; ca1 osteoarthritis of spine; Osteoporosis; Osteopenia; TIA; - PSHx: 11:16 Lumbar fusion L4/5; Hysterectomy; Cataract; Pelvic floor; ca1 - Immunization history:: Client reports receiving the 2nd dose of the Covid vaccine, Client reports receiving the 1st dose of the Covid vaccine, Pneumococcal vaccine is up to date, Flu vaccine is up to date. - Social history:: Smoking status: Patient denies any tobacco usage or history of. ROS: 14:50 Constitutional: Negative for fever, chills, and weight loss, Eyes: Negative for injury, kdr pain, redness, and discharge, ENT: Negative for injury, pain, and discharge, Neck: Negative for injury, pain, and swelling, Cardiovascular: Negative for chest pain, palpitations, and edema, Respiratory: Negative for shortness of breath, cough, wheezing, and pleuritic chest pain, Abdomen/GI: Negative for abdominal pain, nausea, vomiting, diarrhea, and constipation, Back: Negative for injury and pain, : Negative for injury, bleeding, discharge, and swelling, MS/Extremity: Negative for injury and deformity, Skin: Negative for injury, rash, and discoloration, Psych: Negative for depression, anxiety, suicide ideation, homicidal ideation, and hallucinations, Allergy/Immunology: Negative for hives, rash, and allergies, Endocrine: Negative for neck swelling, polydipsia, polyuria, polyphagia, and marked weight changes, Hematologic/Lymphatic: Negative for swollen nodes, abnormal bleeding, and unusual bruising. 14:50 Neuro: Positive for dizziness, weakness, Negative for altered mental status, gait disturbance, headache, hearing loss, loss of consciousness, numbness, seizure activity, speech changes, syncope, near syncope, tingling, tinnitus, visual changes. Exam: 14:02 ECG was reviewed by the Attending Physician. kdr 14:50 Constitutional: This is a well developed, well nourished patient who is awake, alert, kdr and in no acute distress. Head/Face: Normocephalic, atraumatic. Eyes: Pupils equal round and reactive to light, extra-ocular motions intact. Lids and lashes normal. Conjunctiva and sclera are non-icteric and not injected. Cornea within normal limits. Periorbital areas with no swelling, redness, or edema. Neck: Trachea midline, no thyromegaly or masses palpated, and no cervical lymphadenopathy. Supple, full range of motion without nuchal rigidity, or vertebral point tenderness. No Meningismus. Chest/axilla: Normal chest wall appearance and motion. Nontender with no deformity. No lesions are appreciated. Cardiovascular: Regular rate and rhythm with a normal S1 and S2. No gallops, murmurs, or rubs. Normal PMI, no JVD. No pulse deficits. Respiratory: Lungs have equal breath sounds bilaterally, clear to auscultation and percussion. No rales, rhonchi or wheezes noted. No increased work of breathing, no retractions or nasal flaring. Abdomen/GI: Soft, non-tender, with normal bowel sounds. No distension or tympany. No guarding or rebound. No evidence of tenderness throughout. Back: No spinal tenderness. No costovertebral tenderness. Full range of motion. Skin: Warm, dry with normal turgor. Normal color with no rashes, no lesions, and no evidence of cellulitis. MS/ Extremity: Pulses equal, no cyanosis. Neurovascular intact. Full, normal range of motion. Neuro: Awake and alert, GCS 15, oriented to person, place, time, and situation. Cranial nerves II-XII grossly intact. Motor strength 5/5 in all extremities. Sensory grossly intact. Cerebellar exam normal. Normal gait. Psych: Awake, alert, with orientation to person, place and time. Behavior, mood, and affect are within normal limits. Vital Signs: 11:12 BP 99 / 68; Pulse 74; Resp 18 S; Temp 97.2(TE); Pulse Ox 100% on R/A; Weight 77.56 kg ca1 (R); Height 5 ft. 4 in. (162.56 cm) (R); Pain 0/10; 11:24 BP 110 / 76 LA Sitting (auto/reg); Pulse 117 MON; Resp 20 S; Pulse Ox 95% on R/A; mb4 11:45 BP 114 / 79; Pulse 103; Resp 18; Temp 97.5(O); Pulse Ox 95% on R/A; Weight 77.56 kg; ld1 Height 5 ft. 4 in. (162.56 cm); Pain 0/10; 12:20 BP 122 / 92 Supine; Pulse 105 LA; ld1 12:22 BP 125 / 100 Sitting; Pulse 104 MON; ld1 12:24 BP 129 / 90 Standing; Pulse 118 MON; ld1 13:45 BP 119 / 92; Pulse 107; Resp 23; Pulse Ox 97% on R/A; Pain 0/10; ld1 14:45 BP 137 / 74; Pulse 103; Resp 22; Pulse Ox 97% on R/A; ld1 11:45 Body Mass Index 29.35 (77.56 kg, 162.56 cm) ld1 MDM: 14:38 Patient medically screened. [facility] 14:40 Counseling: I had a detailed discussion with the patient and/or guardian regarding: the kdr historical points, exam findings, and any diagnostic results supporting the discharge/admit diagnosis, lab results, radiology results, the need for outpatient follow up. Physician consultation: Mauri Banks MD was called at 14:35, was contacted at 14:41, regarding and will see patient in office, next week. 14:50 Data reviewed: vital signs, nurses notes, lab test result(s), radiologic studies. [facility] 03/09 11:22 Order name: Basic Metabolic Panel; Complete Time: 12:55 [facility] 03/09 11:22 Order name: CBC with Diff; Complete Time: 12:55 [facility] 03/09 11:22 Order name: LFT's; Complete Time: 12:55 [facility] 03/09 11:22 Order name: Magnesium; Complete Time: 12:55 [facility] 03/09 11:22 Order name: NT PRO-BNP; Complete Time: 12:55 [facility] 03/09 11:22 Order name: PT-INR; Complete Time: 12:55 [facility] 03/09 11:22 Order name: Troponin (emerg Dept Use Only); Complete Time: 12:55 [facility] 03/09 11:22 Order name: XRAY Chest (1 view); Complete Time: 12:55 [facility] 03/09 11:22 Order name: EKG; Complete Time: 11:23 [facility] 03/09 11:22 Order name: Cardiac monitoring; Complete Time: 11:41 [facility] 03/09 11:22 Order name: EKG - Nurse/Tech; Complete Time: 12:35 [facility] 03/09 11:22 Order name: IV Saline Lock; Complete Time: 11:41 [facility] 03/09 11:51 Order name: CT Head Brain wo Cont; Complete Time: 12:55 [facility] 03/09 11:22 Order name: Labs collected and sent; Complete Time: 11:41 [facility] 03/09 11:22 Order name: O2 Per Protocol; Complete Time: 11:41 [facility] 03/09 11:22 Order name: O2 Sat Monitoring; Complete Time: 11: [facility] 03/09 11:50 Order name: Orthostatics; Complete Time: 12:31 kdr EC:02 Rate is 101 beats/min. Rhythm is irregularly irregular, A fib with Unifocal PVCs. QRS kdr Reese is Normal. IN interval is normal. QRS interval is normal. QT interval is normal. Clinical impression: Atrial Fibrillation. Administered Medications: 12:34 Drug: NS 0.9% 250 ml Route: IV; Rate: bolus; Site: right forearm; ld1 13:00 Follow up: Response: No adverse reaction; IV Status: Completed infusion ld1 Disposition: 03/09/21 14:38 Discharged to Home. Impression: Hypotension, unspecified, Hypotension, Atrial fibrillation and flutter. - Condition is Stable. - Discharge Instructions: Hypotension, [id number]. - Medication Reconciliation Form, Thank You Letter form. - Follow up: Mauri Banks MD; When: 2 - 3 days; Reason: If symptoms return, Further diagnostic work-up, Recheck today's complaints, Continuance of care, Re-evaluation by your physician. - Problem is an acute exacerbation. - Symptoms have improved. - Notes: Hold Benicar unless Systolic Blood Pressure greater than 140. Follow up with Dr. Banks the week after next. Signatures: Dispatcher [employer] EDRI Arron Brumfield MD MD kdr Dilan, RONEN Parker RN ca1 Jolene Peguero RN RN ld1 Corrections: (The following items were deleted from the chart) 15:02 14:38 03/09/2021 14:38 Discharged to Home. Impression: Hypotension, unspecified; ld1 Hypotension; Atrial fibrillation and flutter. Condition is Stable. Forms are Medication Reconciliation Form, Thank You Letter, Antibiotic Education, Prescription Opioid Use. Follow up: Mauri Banks; When: 2 - 3 days; Reason: If symptoms return, Further diagnostic work-up, Recheck today's complaints, Continuance of care, Re-evaluation by your physician. Problem is an acute exacerbation. Symptoms have improved. kdr
--- NOTE | 2021-03-09 14:39 | ER ---
Nurse's Notes [facility] Name: Irene Bauer Age: 80 yrs Sex: Female : 1940 Arrival Date: 03/09/2021 Time: 11:08 Bed 19 Private MD: Mauri Banks Diagnosis: Hypotension, unspecified;Hypotension;Atrial fibrillation and flutter Presentation: 03/09 11:12 Chief complaint: Patient states: i was feeling weak this morning and I felt I was going ca1 to pass out. I checked my BP and it was 88/66, and my pulse was low too. I had 2 broken ribs from a fall almost 3 week ago and i have this cough since then. Coronavirus screen: Client denies travel out of the [place] in the last 14 days. cough unrelated to allergies, Client presents with at least one sign or symptom that may indicate coronavirus-19. Standard/surgical mask placed on the client. Provider contacted for isolation considerations. Ebola Screen: Patient negative for fever greater than or equal to 101.5 degrees Fahrenheit, and additional compatible Ebola Virus Disease symptoms Patient denies exposure to infectious person. Patient denies travel to an Ebola-affected area in the 21 days before illness onset. No symptoms or risks identified at this time. Initial Sepsis Screen: Does the patient meet any 2 criteria? No. Patient's initial sepsis screen is negative. Does the patient have a suspected source of infection? No. Patient's initial sepsis screen is negative. Risk Assessment: Do you want to hurt yourself or someone else? Patient reports no desire to harm self or others. Onset of symptoms was March 09, 2021. 11:12 Method Of Arrival: Wheelchair ca1 11:12 Acuity: ISELA 3 ca1 Historical: - Allergies: 11:16 NKA; ca1 - Home Meds: 11:16 alphagan 5 ml nightly [Active]; atorvastatin 40 mg Oral tab 1 tab once daily [Active]; ca1 Benicar HCT 40-25 mg Oral tab 1 tab once daily [Active]; Cymbalta 20 mg Oral cpDR 1 cap [Active]; diltiazem HCl 60 mg Oral cp12 1 cap 2 times per day [Active]; Lasix 40 mg Oral tab 1 tab 2 times per day [Active]; metolazone 5 mg Oral tab 1 tab once a week [Active]; pantoprazole 40 mg Oral TbEC 1 tab once daily [Active]; Spironolactone Oral [Active]; Toprol XL 50 mg Oral Tb24 1 tab twice a day for Hypertension [Active]; Xarelto 15 mg Oral tab daily [Active]; Zyrtec 10 mg Oral tab 1 tab once daily [Active]; - PMHx: 11:16 Atrial Fib; CHF; Cataracts; colon cancer; Glaucoma; NOSE BLEEDS; Hypertension; ca1 osteoarthritis of spine; Osteoporosis; Osteopenia; TIA; - PSHx: 11:16 Lumbar fusion L4/5; Hysterectomy; Cataract; Pelvic floor; ca1 - Immunization history:: Client reports receiving the 2nd dose of the Covid vaccine, Client reports receiving the 1st dose of the Covid vaccine, Pneumococcal vaccine is up to date, Flu vaccine is up to date. - Social history:: Smoking status: Patient denies any tobacco usage or history of. Screenin:45 Abuse screen: Denies threats or abuse. Denies injuries from another. Nutritional ld1 screening: No deficits noted. Tuberculosis screening: No symptoms or risk factors identified. Fall Risk IV access (20 points). Assessment: 11:45 General: Appears in no apparent distress. comfortable, Behavior is calm, cooperative, ld1 appropriate for age. Pain: Denies pain. Neuro: Level of Consciousness is awake, alert, obeys commands, Oriented to person, place, time, situation, Appropriate for age. Cardiovascular: Capillary refill < 3 seconds Patient's skin is warm and dry. Rhythm is sinus tachycardia. Cardiovascular: Reports since Pt states she came in due to low blood pressure reading at home of 88/66, Cough \T\ dizziness. Respiratory: Reports cough that is productive, since Started 4-5 days ago Airway is patent Respiratory effort is even, unlabored, Respiratory pattern is regular, symmetrical. GI: Abdomen is round non-distended. : No signs and/or symptoms were reported regarding the genitourinary system. EENT: No signs and/or symptoms were reported regarding the EENT system. Derm: No signs and/or symptoms reported regarding the dermatologic system. Musculoskeletal: No signs and/or symptoms reported regarding the musculoskeletal system. 12:35 Reassessment: No changes from previously documented assessment. Patient and/or family ld1 updated on plan of care and expected duration. Pain level reassessed. Pt laying in bed with daughter at bedside, denies concerns at this time. Patient denies pain at this time. 13:45 Reassessment: No changes from previously documented assessment. Patient and/or family ld1 updated on plan of care and expected duration. Pain level reassessed. Patient is alert, oriented x 3, equal unlabored respirations, skin warm/dry/pink. Pt laying in bed with daughter at bedside. Waiting on results. Patient denies pain at this time. 14:45 Reassessment: Patient appears in no apparent distress at this time. No changes from ld1 previously documented assessment. Patient and/or family updated on plan of care and expected duration. Pain level reassessed. Patient is alert, oriented x 3, equal unlabored respirations, skin warm/dry/pink. ERP at bedside discussing POC. Patient denies pain at this time. Vital Signs: 11:12 BP 99 / 68; Pulse 74; Resp 18 S; Temp 97.2(TE); Pulse Ox 100% on R/A; Weight 77.56 kg ca1 (R); Height 5 ft. 4 in. (162.56 cm) (R); Pain 0/10; 11:24 BP 110 / 76 LA Sitting (auto/reg); Pulse 117 MON; Resp 20 S; Pulse Ox 95% on R/A; mb4 11:45 BP 114 / 79; Pulse 103; Resp 18; Temp 97.5(O); Pulse Ox 95% on R/A; Weight 77.56 kg; ld1 Height 5 ft. 4 in. (162.56 cm); Pain 0/10; 12:20 BP 122 / 92 Supine; Pulse 105 LA; ld1 12:22 BP 125 / 100 Sitting; Pulse 104 MON; ld1 12:24 BP 129 / 90 Standing; Pulse 118 MON; ld1 13:45 BP 119 / 92; Pulse 107; Resp 23; Pulse Ox 97% on R/A; Pain 0/10; ld1 14:45 BP 137 / 74; Pulse 103; Resp 22; Pulse Ox 97% on R/A; ld1 11:45 Body Mass Index 29.35 (77.56 kg, 162.56 cm) ld1 ED Course: 11:08 Patient arrived in ED. mr 11:08 Mauri Banks MD is Private Physician. mr 11:14 Triage completed. ca1 11:16 Arm band placed on right wrist. ca1 11:19 Arron Brumfield MD is Attending Physician. kdr 11:20 Jolene Peguero, RN is Primary Nurse. ld1 11:22 Bed in low position. Call light in reach. Side rails up X 1. Warm blanket given. mb4 11:45 Inserted saline lock: 22 gauge in right wrist, using aseptic technique. Blood collected.ld1 12:03 CT Head Brain wo Cont In Process Unspecified. EDMS 12:11 XRAY Chest (1 view) In Process Unspecified. EDMS 14:36 Mauri Banks MD is Referral Physician. kdr 15:01 No provider procedures requiring assistance completed. IV discontinued, intact, ld1 bleeding controlled, No redness/swelling at site. Administered Medications: 12:34 Drug: NS 0.9% 250 ml Route: IV; Rate: bolus; Site: right forearm; ld1 13:00 Follow up: Response: No adverse reaction; IV Status: Completed infusion ld1 Outcome: 14:38 Discharge ordered by . kdr 15:01 Discharged to home via wheelchair, with family. ld1 15:01 Condition: stable 15:01 Discharge instructions given to patient, family, Instructed on discharge instructions, follow up and referral plans. medication usage, Demonstrated understanding of instructions, follow-up care, medications. 15:02 Patient left the ED. ld1 Signatures: Dispatcher [employer] EDVA Arron Brumfield MD MD kdr [place] Mackenzie mb4 Elena Kong RN RN ca1 Jolene Peguero, RN RN ld1
[2021-03-09 15:10] VITALS: TEMP 97.5
[2021-03-09 15:16] VITALS: O2SAT 97
[2021-03-09 15:17] VITALS: BP 137/74
--- NOTE | 2021-03-10 07:52 | EKG ---
Test Date: 2021-03-09 Test Time: 12:18:28 [employer] Cutter Operator: Noah TODD MEASUREMENT RESULTS: Intervals: Rate: 101 IN: QRSD: 74 QT: 218 QTc: 282 [place]: P: IN: QRS: -1 T: -76 INTERPRETIVE STATEMENTS: Atrial fibrillation with rapid ventricular response with premature ventricular or aberrantly conducted complexes Nonspecific ST and T wave abnormality, probably digitalis effect Abnormal ECG Compared to ECG 01/19/2020 15:39:16 Ventricular premature complex(es) now present ST (T wave) deviation now present Left anterior fascicular block no longer present Myocardial infarct finding no longer present Electronically Signed On 03-10-21 07:51:31 CDT by Jeffery Rey
== END 2021-03-09 15:02 | disposition home or self-care (01) ==
LOC: ER 11:04
DX: I95.9 Hypotension, unspecified (principal); I48.91 Unspecified atrial fibrillation; I48.92 Unspecified atrial flutter; I10 Essential (primary) hypertension; I50.9 Heart failure, unspecified; Z79.01 Long term (current) use of anticoagulants; Z85.038 Personal history of other malignant neoplasm of large intestine
CPT/HCPCS: 96365; 93005; 85025; 80048; 36415; 83735; 85610; 80076; 84484; 83880; 70450; 71045; 99284; J7050

== ENCOUNTER 2021-04-29 12:58 | Emergency (ER) | payer OTHER ==
--- OUTSIDE RECORDS SUMMARY | 2021-04-29 13:01 | XMS REPORT | Continuity of Care Document ---
:1940 Author Organization [facility] t Address [address] [place] [address] Care Team Providers Name Role Phone Kaushik [...] Date Quantity Comments Source Sex Assigned At [facility] Smoking Status Start Date Stop Date Source Never smoker [facility] Medications Ordered Filled Start Stop Current Ordering Indication Dosage Frequency Signature Comments Components Source Medication Medication Date Date Medication? Clinician (SIG) Name Name digoxin Yes 250ug QD Take [facility] (LANOXIN[facility] 8-04 mcg by [facility] - 0.25 MG 14:51: mouth Medical tablet 07 daily. [facility] [place] olmesartan- Yes 1{tbl} QD Take [address] hydrochloro 8-04 tablet by [place] es - thiazide 14:51: mouth Medical (BENICAR 07 daily. [facility] [place] HCT) 40-25 mg per tablet rivaroxaban Yes 20mg QD Take [address] [facility] [address] (XARELTO) 8-04 by mouth [facility] - 20 mg Tab 14:51: daily. Medica l tablet 07 [facility] [place] Alphagan P Alphagan P Yes Carlos not [...] ER Diaz CAPSU[facility] Procedures This patient has no known procedures. Encounters Start End Encounter Admission Attending Care Care Encounter Source Date/Time Date/Time Type Type Clinicians Facility Department ID 2021-04-20 2021-04-20 [facility] [id number] 2021-04-12 2021-04-12 [facility] [id number] [facility] 2021-04-04 2021-04-04 [facility] [id number] [facility] 2021-04-03 2021-04-03 [facility] [id number] [facility] 2021-02-20 2021-02-20 [facility] [id number] [facility] 2021-01-30 2021-01-30 [facility] [id number] [facility] 2020-12-19 2020-12-19 [facility] [id number] [facility] 2020-07-18 2020-07-18 Ana Cristina Pennington TNSAUNDRA [id number] 00:00:00 00:00:00 [facility] [id number] [place] [id number] Professio [phone] [place] [address] [address] 2020-06-03 2020-06-03 Refill Aditi [facility] [id number] 00:00:00 00:00:00 [facility] [id number] [place] [id number] Professio [phone] [place] [address] [address] 2020-05-24 2020-05-24 Outpatient Roxanne Oliveirat [id number] [address] 11:00[facility]00 11:00[facility]00 [facility] Clinics 2020-05-17 2020-05-17 Outpatient Roxanne Oliveirat [id number] 09:08:00 09:08:00 [facility] Clinics 2020-05-02 2020-05-02 Outpatient Roxanne Boogie [id number] [address] 10:30:00 10:30:00 [facility] Clinics 2020-03-03 2020-03-03 Refill Aditi [facility] [id number] 00:00:00 00:00:00 Irma A [place] [id number] [place] [id number] Professio [phone] [address] 2020-03-01 2020-03-01 Telephone Aditi [facility] [id number] 00:00:00 00:00:00 Irma A [place] [id number] [place] [id number] Professio [phone] [address] 2020-02-26 2020-02-26 Refill Aditi TNSAUNDRA 1.2.840.114 [id number] 00:00:00 00:00:00 Irma A [place] [id number] [place] [id number] Professio [phone] [address] 2019-12-26 2019-12-26 Refill Aditi [facility] [id number] 00:00:00 00:00:00 Irma Enriquez [id number] [place] [id number] Professio [phone] [facility]44 [facility] 2019-12-08 2019-12-08 Telephone Dex Fair [facility] [id number] 00:00:00 00:00:00 W SPECIALTY [id number] [place] [id number] [place] [phone] [id number] 2019-12-01 2019-12-01 Telephone Jessica [facility] [id number] 00:00:00 00:00:00 Rosario SPECIALTY [id number] [place] [id number] [place] [phone] [facility] 2019-12-01 2019-12-01 [facility] [id number] 00:00:00 00:00:00 Imra Enriquez [id number] [place] [id number] Professio [phone] [facility] 2019-11-09 2019-11-09 Office Jessica [facility] [id number] 12:48:32 13:48:32 Visit Rosario SPECIALTY [id number] [place] [id number] [place] [phone] [facility] 2019-11-09 2019-11-09 Orders Doctor AUBRIE [id number] 00:00:00 00:00:00 Only Unassigned, [place] [id number] [place] [address]686 [phone] 009 2019-03-26 2019-03-26 [facility] [id number] 08:00:00 08:00:00 [facility] 2019-01-12 2019-01-12 [facility] [id number] 11:00:00 11:00:00 [facility] ent Clinics Results Test Description Test Time Test Comments Results Result Comments Source HEMOGLOBIN A1C 2017-05-16 21:48:00 Test Item Value Reference Range Interpretation Comme nts HEMOGLOBIN A1C (BEAKER) (test code = 368) 6.2 % 4.3-6.1 H [id number] 07:10:00 Test Item Value Reference Range Interpretation Comments MAGNESIUM (BEAKER) (test code = 1.9 mg/dL 1.6-2.6 627) BASIC METABOLIC [id number] 07:10:00 Test Item Value Reference Range Interpretation [...] WBC 0-0 (BEAKER) (test code = 413) [id number] 05:45:00 Test Item Value Reference Range Interpretation Comments MAGNESIUM (BEAKER) 2.3 mg/dL 1.6-2.6 Specimen moderately (test code = 627) hemolyzed COMPREHENSIVE METABOLIC [id number] 05:45:00 Test Item Value Reference Range Interpretation [...] S NOT APPLICABLE FOR DIALYSIS PATIEN TS. [id number] 11:50:00 Test Item Value Reference Range Interpretation Comments RPR SCREEN (BEAKER) (test code = Nonreactive Nonreactive 420) BASIC METABOLIC [id number] 06:28:00 Test Item Value Reference Range Interpretation [...] NOT APPLICABLE FOR DIALYSIS PATIEN TS. FastingLIPID [id number] 06:28:00 Test Item Value Reference Range Interpretation [...] 160-189 Very High >=190 FastingVITAMIN B12 AND [id number] 04:10:00 Test Item Value Reference Range Interpretation Comments VITAMIN B12 (BEAKER) (test code = 514 pg/mL 213-816 774) FOLATE (BEAKER) (test code = 362) > ng/mL >=7.0 Effective 08/31/2014: Folate Reference Range ChangeNew: >=7.0 Previous: >=5.4TSH/FREE T4 IF [id number] 02:52:00 Test Item Value Reference Range Interpretation Comments THYROID STIMULATING HORMONE 2.55 uIU/mL 0.35-4.94 (BEAKER) (test code = 772) SEDIMENTATION [id number] 01:10:00 Test Item Value Reference Range Interpretation Comments SEDIMENTATION RATE, ERYTHROCYTE 6 mm/HR 0-40 (BEAKER) (test code = 766) [id number] 00:35:00 Test Item Value Reference Range Interpretation Comments HOMOCYSTEINE (BEAKER) (test code = 8.5 umol/L 5.1-15.4 642) URINALYSIS W/ [id number] 00:30:00 Test Item Value Reference Range Interpretation [...] 516) SOURCE(BEAKER) (test code = Urine, Voided 1622) TROPONIN [id number] 00:23:00 Test Item Value Reference Range Interpretation [...] acute neurological disease, and persistent tachyarrhythmia.HEPATIC FUNCTION [id number] 00:17:00 Test Item Value Reference Range Interpretation [...] = 31 U/L 6-55 347) BASIC METABOLIC [id number] 00:17:00 Test Item Value Reference Range Interpretation [...] 697) EGFR (BEAKER) (test 69 mL/min/1.73 ESTIMA MUMATZ GFR IS code = 1092) sq m NOT ACCURATE CREATININE CLEARANCE IN PREDICTING GLOMERULAR FILTRATION RATE . ESTIMATED GFR I S NOT APPLICABLE FOR DIALYSIS PATIEN TS. C-REACTIVE [id number] 00:17:00 Test Item Value Reference Range Interpretation Comments C-REACTIVE PROTEIN (BEAKER) (test 0.55 mg/dL 0.00-0.50 H code = 676) PROTHROMBIN TIME/[id number] 00:07:00 Test Item Value Reference Range Interpretation [...]
--- NOTE | 2021-04-29 13:37 | RAD REPORT ---
EXAM DESCRIPTION: RAD - Ankle Left 3 View - 04/29/2021 1:19 pm CLINICAL HISTORY: PAIN COMPARISON: No comparisons FINDINGS: No left ankle fracture or malalignment. Calcaneal spurring. Midfoot degenerative changes. IMPRESSION: No left ankle fracture or malalignment.
--- NOTE | 2021-04-29 13:38 | RAD REPORT ---
EXAM DESCRIPTION: CT - Head Brain Wo Cont - 04/29/2021 1:30 pm CLINICAL HISTORY: fall, head injury, on xarelto COMPARISON: Head Brain Wo Cont dated 03/09/2021; Head Brain Wo Cont dated 01/18/2020 FINDINGS: No skull fracture per no mastoid effusion. Paranasal sinuses are well aerated. Remote right basal ganglia lacunar infarct. No acute intracranial hemorrhage. No mass effect or midli ne shift. No acute large vascular territory infarcts. Mild chronic small vessel ischemic changes. IMPRESSION: No acute intracranial abnormality.
--- NOTE | 2021-04-29 14:43 | EDPHYS ---
Physician Documentation [facility] Name: Irene Bauer Age: 80 yrs Sex: Female : 1940 Arrival Date: 04/29/2021 Time: 13:00 Bed 4 Private MD: ED Physician Jose M Raya HPI: 04/29 13:05 This 80 yrs old Female presents to ER via EMS with complaints of Fall Injury. rn 13:05 Details of fall: The patient fell from seated position. Onset: The symptoms/episode rn began/occurred just prior to arrival. Associated injuries: The patient sustained injury to the head. Severity of symptoms: At their worst the symptoms were mild, in the emergency department the symptoms are unchanged. The patient has not experienced similar symptoms in the past. The patient has not recently seen a physician. Reports seated position on scooter, leaned over to get paper, fell, hit head on floor, no LOC, worried because takes xarelto. Also reports struck left ankle on something, reports only place she hurts. Denies headache. No vomiting. . - Family history:: not pertinent. - Hospitalizations: : No recent hospitalization is reported. ROS: 13:05 Constitutional: Negative for fever, chills, and weight loss, Eyes: Negative for injury, rn pain, redness, and discharge, Neck: Negative for injury, pain, and swelling, Cardiovascular: Negative for chest pain, palpitations, and edema, Respiratory: Negative for shortness of breath, cough, wheezing, and pleuritic chest pain, Abdomen/GI: Negative for abdominal pain, nausea, vomiting, diarrhea, and constipation, Back: Negative for injury and pain, MS/Extremity: + left ankle injury and pain Skin: + small skin tear to left ankle. Neuro: Negative for headache, weakness, numbness, tingling, and seizure. Exam: 13:05 Constitutional: This is a well developed, well nourished patient who is awake, alert, rn and in no acute distress. Head/Face: Normocephalic, small subcentimeter superficial laceration occiput scalp, no active bleeding, no depression Eyes: Pupils equal round and reactive to light, extra-ocular motions intact. Neck: No midline cervical tenderness Cardiovascular: Regular rate and rhythm. No pulse deficits. Respiratory: No increased work of breathing, no retractions or nasal flaring. Abdomen/GI: Soft, non-tender Back: No spinal tenderness. No costovertebral tenderness. Full range of motion. Skin: Warm, dry with normal turgor. Normal color with no rashes, no lesions, and no evidence of cellulitis. MS/ Extremity: Pulses equal, no cyanosis. Neurovascular intact. Full, normal range of motion. + mild left medial ankle tenderness and swelling, + small 0.5cm very superficial skin tear with slight venous bleeding after cleaning wound. Neuro: Awake and alert, GCS 15, oriented to person, place, time, and situation. Cranial nerves II-XII grossly intact. Motor strength 5/5 in all extremities. Sensory grossly intact. Cerebellar exam normal. Vital Signs: 13:42 BP 133 / 96; Pulse 84; Resp 17; Temp 98.6(TE); Pulse Ox 95% on R/A; tw2 MDM: 13:03 Patient medically screened. rn 14:40 Differential diagnosis: abrasion, closed head injury, contusion, fracture, sprain, rn strain. Data reviewed: vital signs, nurses notes, radiologic studies, CT scan, plain films, and as a result, I will discharge patient. Counseling: I had a detailed discussion with the patient and/or guardian regarding: the historical points, exam findings, and any diagnostic results supporting the discharge/admit diagnosis, radiology results, the need for outpatient follow up, to return to the emergency department if symptoms worsen or persist or if there are any questions or concerns that arise at home. Response to treatment: the patient's symptoms have markedly improved after treatment, and as a result, I will discharge patient. Special discussion: I discussed with the patient/guardian in detail that at this point there is no indication for admission to the hospital. It is understood, however, that if the symptoms persist or worsen the patient needs to return immediately for re-evaluation. ED course: Ct head no acute findings, wound of slap not bleeding, xray ankle no acute fracture, will steri-strip and dc home.. 04/29 13:04 Order name: CT Head Brain wo Cont; Complete Time: 13:55 rn 04/29 13:04 Order name: XRAY Ankle LEFT 3 view; Complete Time: 13:55 rn 04/29 13:55 Order name: Wound Care; Complete Time: 14:55 rn Administered Medications: 14:55 Drug: Tylenol 650 mg Route: PO; hb 15:45 Follow up: Response: No adverse reaction hb Disposition Summary: 04/29/21 14:43 Discharge Ordered Location: Home rn Problem: new rn Symptoms: have improved rn Condition: Stable rn Diagnosis - Superficial injury of scalp rn - Contusion of left ankle rn - Unspecified injury of head, initial encounter rn Followup: rn - With: Private Physician - When: As needed - Reason: Recheck today's complaints, Re-evaluation by your physician Discharge Instructions: - Discharge Summary Sheet rn - Contusion rn - Head Injury, Adult rn - Ankle Pain rn Forms: - Medication Reconciliation Form rn - Thank You Letter rn - Antibiotic government guard - Prescription Opioid Use rn Signatures: Dispatcher [employer] EDJose M Brewster MD MD rn Baxter, Heather RN RN hb
--- NOTE | 2021-04-29 14:43 | ER ---
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 Pt denies LOC. Reports that she hit the back of her head. Small skin tears noted to bilateral ankles. No active bleeding noted at this time. Care prior to arrival: None. Mechanism of Injury: Fall from standing position. Trauma event details: Injury occurred in the [facility], Injury occurred: at home. Injury occurred: April 29, 2021. 13:00 Acuity: ISELA 4 ss 13:00 Method Of Arrival: EMS: [facility] ss 13:07 Coronavirus screen: Client denies travel out of the [place] in the last 14 days. Ebola ss Screen: Patient denies exposure to infectious person. Patient denies travel to an Ebola-affected area in the 21 days before illness onset. Initial Sepsis Screen: Does the patient meet any 2 criteria? No. Patient's initial sepsis screen is negative. Does the patient have a suspected source of infection? No. Patient's initial sepsis screen is negative. Risk Assessment: Do you want to hurt yourself or someone else? Patient reports no desire to harm self or others. Onset of symptoms was April 29, 2021. Trauma Activation: Alert Physician: ED Physician; Name: ; Notified At: ; Arrived At: Physician: General Surgeon; Name: ; Notified At: ; Arrived At: Physician: Radiology; Name: ; Notified At: ; Arrived At: Physician: Respiratory; Name: ; Notified At: ; Arrived At: Physician: Lab; Name: ; Notified At: ; Arrived At: - Family history:: not pertinent. - Hospitalizations: : No recent hospitalization is reported. Screenin:00 Abuse screen: Denies threats or abuse. Denies injuries from another. Tuberculosis ss screening: Never had TB. 13:43 Nutritional screening: No deficits noted. Fall Risk Secondary diagnosis (15 points) tw2 impaired mobility. Primary Survey: 13:00 NO uncontrolled hemorrhage observed. A: The patient is alert. Airway: patent, No ss supplemental oxygen in use on arrival. Breathing/Chest: Respiratory pattern: regular, Respiratory effort: spontaneous, unlabored, Breath sounds: clear, Chest inspection: symmetrical rise and fall of the chest. Circulation: Pulses: palpable right radial artery, right posterior tibial artery, left radial artery and left posterior tibial artery. Disability Alert. Exposure/Environment: There is no evidence of uncontrolled external bleeding. A warming method has been applied: A warm blanket has been provided to the patient. Vital Signs: 13:42 BP 133 / 96; Pulse 84; Resp 17; Temp 98.6(TE); Pulse Ox 95% on R/A; tw2 ED Course: 13:00 Patient arrived in ED. ss 13:00 Patient has correct armband on for positive identification. Bed in low position. ss 13:00 Patient maintains SpO2 saturation greater than 95% on room air. ss 13:02 Triage completed. ss 13:03 Jose M Raya MD is Attending Physician. rn 13:06 Juani Horton, RN is Primary Nurse. hb 13:19 XRAY Ankle LEFT 3 view In Process Unspecified. EDMS 13:30 CT Head Brain wo Cont In Process Unspecified. EDMS Administered Medications: 14:55 Drug: Tylenol 650 mg Route: PO; hb 15:45 Follow up: Response: No adverse reaction hb Outcome: 14:43 Discharge ordered by . rn 14:55 Discharged to home via wheelchair, with family. hb 14:55 Condition: stable 14:55 Discharge instructions given to patient, family, Instructed on discharge instructions, follow up and referral plans. medication usage, Demonstrated understanding of instructions, follow-up care, medications. 14:56 Patient left the ED. hb Signatures: Dispatcher [employer] EDMS Jose M Raya MD MD rn Smirch, Shelby, RN RN Juani Horton RN RN hb Wise, Tara, RN RN tw2 Corrections: (The following items were deleted from the chart) 13:43 13:00 Lincoln Score=15, Trauma Score=12, ss tw2 13:43 13:00 GCS: 15, ss tw2
[2021-04-29] MEDS ORDERED: ACETAMINOPHEN 325 MG TABLET ONE (15:00)
[2021-04-29] MEDS ORDERED: Mastisol Adhesive Liq ONE (15:02)
[2021-04-29 15:09] VITALS: BP 133/96; TEMP 98.6; O2SAT 95
== END 2021-04-29 14:56 | disposition home or self-care (01) ==
LOC: ER 12:58
DX: S09.90XA Unspecified injury of head, initial encounter (principal); S90.02XA Contusion of left ankle, initial encounter; W05.1XXA Fall from non-moving nonmotorized scooter, initial encounter
CPT/HCPCS: 70450; 99284; G0390

== ENCOUNTER 2021-06-10 16:44 | Inpatient (IN) | payer OTHER ==
--- OUTSIDE RECORDS SUMMARY | 2021-06-10 16:47 | XMS REPORT | Continuity of Care Document ---
:1940 Author Organization [facility] t Address [address] [place] [address] Care Team Providers Name Role Phone Kaushik Banks MD Primary Care Physician Aditi LEYVA A Attending Clinician Marv LEYVA W Attending [...] [facility] 05[facility]14 [facility] - [facility]: [facility] 00 [place] Allergies, Adverse Reactions, Alerts This patient has no known allergies or adverse reactions. Social History Social Habit Start Date Stop Date Quantity Comments Source Sex Assigned [facility] Smoking Status Start Date Stop Date Source Never smoker [facility] Medications Ordered Filled Start Stop Current Ordering Indication Dosage Frequency Signature Comments Components Source Medication Medication Date Date Medication? Clinician (SIG) Name Name digoxin Yes 250ug QD Take [facility] (LANOXIN[facility] 8-04 mcg by [facility] - 0.25 MG 14:51: mouth Medical tablet 07 daily. [facility] olmesartan- Yes 1{tbl} QD Take [address] hydrochloro 8-04 tablet by [place] es - thiazide 14:51: mouth Medical (BENICAR 07 daily. [facility] HCT) 40-25 mg per tablet rivaroxaban Yes 20mg QD Take [address] (XARELTO) 8-04 by mouth [facility] - 20 mg Tab 14:51: daily. Medica l tablet 07 [facility] Alphagan P Alphagan P Yes Carlos not [...] Clinicians Facility Department ID 2021-04-20 2021-04-20 [id number] 2021-04-12 2021-04-12 [facility] [id number] [facility] 2021-04-04 2021-04-04 [facility] [id number] [facility] 2021-04-03 2021-04-03 [facility] [id number] [facility] 2021-02-20 2021-02-20 [facility] [id number] [facility] 2021-01-30 2021-01-30 [facility] [id number] [facility] 2020-12-19 2020-12-19 [facility] [id number] [facility] 2020-07-18 2020-07-18 REAL Brock [id number] 00:00:00 00:00:00 [facility] [id number] [place] [id number] Professio [phone] [place] [address] [address] 2020-06-03 2020-06-03 Refill Aditi [facility] [id number] 00:00:00 00:00:00 [facility] [id number] [place] [id number] Professio [phone] [place] [address] [address] 2020-05-24 2020-05-24 Outpatient Roxanne Oliveirat [id number] 11:00:00 11:00:00 [facility] [place]ics 2020-05-17 2020-05-17 Outpatient Roxanne Oliveirat [id number] 09:08:00 09:08:00 [facility] [place] 2020-05-02 2020-05-02 Outpatient Roxanne Oliveirat [id number] 10:30:00 10:30:00 [facility] [place] 2020-03-03 2020-03-03 Refill Aditi [facility] [id number] 00:00:00 00:00:00 Irma A [place] [id number] [place] [id number] Professio [phone] [address] 2020-03-01 2020-03-01 [place] Aditi [facility] [id number] 00:00:00 00:00:00 Irma A Mina [id number] [place] [id number] Professio [phone] [address] 2020-02-26 2020-02-26 Refill Aditi AKSAUNDRA [id number] 00:00:00 00:00:00 Irma A [place] [id number] [place] [id number] Professio [phone] [address] 2019-12-26 2019-12-26 [facility] [id number] 00:00:00 00:00:00 Irma Enriquez [id number] [place] [id number] Professio [phone] [facility] 044 [facility] 2019-12-08 2019-12-08 Telephone Dex Fair [facility] [id number] 00:00:00 00:00:00 W SPECIALTY [id number] [place] [id number] [place] [phone] [facility] 2019-12-01 2019-12-01 Telephone Jessica [facility] [id number] 00:00:00 00:00:00 Rosario SPECIALTY [id number] [place] [id number] [place] [phone] [facility] 2019-12-01 2019-12-01 Refill [place], [facility] [id number] 00:00:00 00:00:00 Irma Enriquez [id number] [place] [id number] Professio [phone] [facility] 231 [facility] 2019-11-09 2019-11-09 Office Jessica [facility] [id number] 12:48:32 13:48:32 Visit Rosario SPECIALTY [id number] [place] [id number] [place] [phone] [facility] 2019-11-09 2019-11-09 Orders Doctor AUBRIE [id number] 00:00:00 00:00:00 Only Unassigned, [place] [id number] [place] [address].686 [phone] 009 2019-03-26 2019-03-26 Outpatient Brazprudencio Boogie [id number] 08:00:00 08:00:00 t [facility] 2019-01-12 2019-01-12 [place] [id number] 11:00:00 11:00:00 t [facility] ent Clinics Results Test Description Test Time Test Comments Results Result Comments Source HEMOGLOBIN A1C 2017-05-16 21:48:00 Test Item Value Reference Range Interpretation Comme nts HEMOGLOBIN A1C (BEAKER) (test code = 368) 6.2 % 4.3-6.1 H [id number] 07:10:00 Test Item Value Reference Range Interpretation Comments MAGNESIUM (BEAKER) (test code = 1.9 mg/dL 1.6-2.6 627) BASIC METABOLIC [id number] 07:10:00 Test Item Value Reference Range Interpretation [...] WBC 0-0 (BEAKER) (test code = 413) [id number] 05:45:00 Test Item Value Reference Range Interpretation Comments MAGNESIUM (BEAKER) 2.3 mg/dL 1.6-2.6 Specimen moderately (test code = 627) hemolyzed COMPREHENSIVE METABOLIC [id number] 05:45:00 Test Item Value Reference Range Interpretation [...] S NOT APPLICABLE FOR DIALYSIS PATIEN TS. [id number] 11:50:00 Test Item Value Reference Range Interpretation Comments RPR SCREEN (BEAKER) (test code = Nonreactive Nonreactive 420) BASIC METABOLIC [id number] 06:28:00 Test Item Value Reference Range Interpretation [...] NOT APPLICABLE FOR DIALYSIS PATIEN TS. FastingLIPID [id number] 06:28:00 Test Item Value Reference Range Interpretation [...] 160-189 Very High >=190 FastingVITAMIN B12 AND [id number] 04:10:00 Test Item Value Reference Range Interpretation Comments VITAMIN B12 (BEAKER) (test code = 514 pg/mL 213-816 774) FOLATE (BEAKER) (test code = 362) > ng/mL >=7.0 Effective 08/31/2014: Folate Reference Range ChangeNew: >=7.0 Previous: >=5.4TSH/FREE T4 IF [id number] 02:52:00 Test Item Value Reference Range Interpretation Comments THYROID STIMULATING HORMONE 2.55 uIU/mL 0.35-4.94 (BEAKER) (test code = 772) SEDIMENTATION [id number] 01:10:00 Test Item Value Reference Range Interpretation Comments SEDIMENTATION RATE, ERYTHROCYTE 6 mm/HR 0-40 (BEAKER) (test code = 766) [id number] 00:35:00 Test Item Value Reference Range Interpretation Comments HOMOCYSTEINE (BEAKER) (test code = 8.5 umol/L 5.1-15.4 642) URINALYSIS W/ [id number] 00:30:00 Test Item Value Reference Range Interpretation [...] 516) SOURCE(BEAKER) (test code = Urine, Voided 6804) TROPONIN [id number] 00:23:00 Test Item Value Reference Range Interpretation [...] acute neurological disease, and persistent tachyarrhythmia.HEPATIC FUNCTION [id number] 00:17:00 Test Item Value Reference Range Interpretation [...] = 31 U/L 6-55 347) BASIC METABOLIC [id number] 00:17:00 Test Item Value Reference Range Interpretation [...] NOT APPLICABLE FOR DIALYSIS PATIEN TS. C-REACTIVE [id number] 00:17:00 Test Item Value Reference Range Interpretation Comments C-REACTIVE PROTEIN (BEAKER) (test 0.55 mg/dL 0.00-0.50 H code = 676) PROTHROMBIN TIME/[id number] 00:07:00 Test Item Value Reference Range Interpretation [...]
--- NOTE | 2021-06-10 17:59 | RAD REPORT ---
EXAM DESCRIPTION: RAD - Chest Single View - 06/10/2021 5:50 pm CLINICAL HISTORY: COUGH Chest pain. COMPARISON: Chest Single View dated 03/09/2021; Chest Single View dated 01/19/2020; Chest Single View d ated 01/18/2020; Chest Pa And Lat (2 Views) dated 09/15/2019 FINDINGS: Portable technique limits examination quality. The lungs are grossly clear. The heart is upper limit of normal in size. No displaced fractures. IMPRESSION: No acute intrathoracic process suspected.
[2021-06-10 18:46] LABS: Absolute Lymphocytes (CBC) 1.8 K/uL (0.7-4.9); Basophils % 0.8 % (0-1.3); Hematocrit 42.6 % (36.0-45.0); Lymphocytes % 20.2 % (15.3-44.8); MPV 9.6 fL (7.6-11.3); RBC Red Blood Cell Count 4.58 M/uL (3.86-4.86)
[2021-06-10 18:47] LABS: Protime INR 1.82
[2021-06-10] MEDS ORDERED: FAMOTIDINE 20 MG/2 ML VIAL IV ONE (18:52)
[2021-06-10] MEDS ORDERED: CEFTRIAXONE/SWI 1gm 1 GM/10 ML SYR ONE (18:52)
[2021-06-10] MEDS ORDERED: NA CHLORIDE 0.9% 1,000 ML ONE (18:52)
--- NOTE | 2021-06-10 19:12 | RAD REPORT ---
EXAM DESCRIPTION: CT - Stone Protocol - 06/10/2021 7:01 pm CLINICAL HISTORY: Flank pain. Abdominal distention;Flank pain COMPARISON: Stone Protocol dated 01/18/2020; CT-STONE PROTOCOL dated 09/01/2008; CT ABD PELVIS W CONTR AST dated 05/15/2012 TECHNIQUE: Axial images were obtained without oral or IV contrast. Lack of contrast limits solid org an and vascular assessment. The [id number] spans the entirety of the system partially obscuring uppermost abdomen and lung bases. Coronal reformatted images were obtained and reviewed. All CT scans are performed using dose optimization technique as appropriate and may include automated exposure control or mA/KV adjustment according to patient size. FINDINGS: The lower lung pardo are clear. Imaged portions of the liver and spleen show no suspicious findings on non-contrast imaging.Calcified anterior left upper quadrant is stable. The pancreas and adrenal glands are normal. No pathologic ly mphadenopathy in the abdomen or pelvis. No urinary tract stones or obstructive uropathy. No bowel obstruction, free air, free fluid or abscess. The appendix is not identified as a discrete s tructure, however, no secondary findings of appendicitis are identified. Moderate lumbar degenerative change placed. Lumbar dextroscoliosis. IMPRESSION: No urinary tract stones or obstructive uropathy. No acute process seen.
[2021-06-10 19:27] LABS: Sodium Level 136 mmol/L (136-145)
[2021-06-10 19:28] LABS: ALT/SGPT 26 U/L (12-78); AST/SGOT 30 U/L (15-37); Alkaline Phosphatase 107 U/L (45-117); BUN Blood Urea Nitrogen 59 mg/dL (7-18); Bicarbonate 32 mmol/L (21-32); Bilirubin Total 0.8 mg/dL (0.2-1.0); Glucose Level 151 mg/dL (74-106)
--- NOTE | 2021-06-10 19:28 | ER ---
Nurse's Notes [facility] Name: Irene Bauer Age: 80 yrs Sex: Female : 1940 Arrival Date: 06/10/2021 Time: 16:45 Bed 18 Private MD: Diagnosis: Hypotension, unspecified;Unspecified atrial fibrillation;Weakness;Unspecified kidney failure-ACUTE ON CHRONIC;Hypokalemia Presentation: 06/10 17:00 Chief complaint: Patient states: dizziness that began yesterday evening. Worse when ss repositioning. Pt has no other complaints. Is currently being treated for UTI. Coronavirus screen: Client denies travel out of the [place] in the last 14 days. Coronavirus screen: Client presents with at least one sign or symptom that may indicate coronavirus-19. Standard/surgical mask placed on the client. Provider contacted for isolation considerations. Ebola Screen: Patient denies exposure to infectious person. Patient denies travel to an Ebola-affected area in the 21 days before illness onset. 17:00 Method Of Arrival: EMS: [facility] 17:03 Initial Sepsis Screen: Does the patient meet any 2 criteria? No. Patient's initial ss sepsis screen is negative. Does the patient have a suspected source of infection? No. Patient's initial sepsis screen is negative. Risk Assessment: Do you want to hurt yourself or someone else? Patient reports no desire to harm self or others. Onset of symptoms was June 09, 2021. Care prior to arrival: Medication(s) given: Normal saline infusion, 300 mL IV initiated. 20 GA, in the left forearm, Glucose check: 223. 17:03 Acuity: ISELA 3 ss Historical: - Allergies: 17:04 NKA; ss - Home Meds: 17:04 Xarelto 15 mg Oral tab daily [Active]; Benicar HCT 40-25 mg Oral tab 1 tab once daily ss [Active]; Cymbalta 20 mg Oral cpDR 1 cap [Active]; diltiazem HCl 60 mg Oral cp12 1 cap 2 times per day [Active]; Lasix 40 mg Oral tab 1 tab 2 times per day [Active]; Toprol XL 50 mg Oral Tb24 1 tab twice a day for Hypertension [Active]; metolazone 2.5 mg oral tab 2 tabs 2 per week on Sundays and [Active]; Zyrtec 10 mg Oral tab 1 tab once daily [Active]; - PMHx: 17:04 Atrial Fib; Cataracts; Hypertension; Glaucoma; colon cancer; NOSE BLEEDS; ss osteoarthritis of spine; CHF; Osteopenia; Osteoporosis; TIA; - Immunization history:: Client reports receiving the 2nd dose of the Covid vaccine. - Social history:: Smoking status: Patient denies any tobacco usage or history of. - Family history:: not pertinent. Screenin:08 Abuse screen: Denies threats or abuse. Denies injuries from another. Nutritional tr6 screening: No deficits noted. Tuberculosis screening: No symptoms or risk factors identified. Fall Risk Fall in past 12 months (25 points). Assessment: 18:51 General: Appears in no apparent distress. comfortable, slender, well groomed, Behavior tr6 is calm, cooperative, appropriate for age, Reports fatigue for 1-2 days, dizziness. Pain: Denies pain. Neuro: Level of Consciousness is awake, alert, obeys commands, Oriented to person, place, time, situation, Appropriate for age Distribution Engineering Technologist are equal bilaterally Speech is normal, Reports dizziness. Cardiovascular: Rhythm is atrial fibrillation. Respiratory: No deficits noted. GI: No deficits noted. : Reports currently being treated for UTI Denies pain. Derm: No deficits noted. Musculoskeletal: No deficits noted. Vital Signs: 17:00 BP 97 / 52; Pulse 88; Resp 16; Temp 97.8(TE); Pulse Ox 96% on R/A; Weight 78.02 kg; Height 5 ft. 10 in. (177.80 cm); Pain 0/10; 18:49 BP 113 / 64; Pulse 78; Resp 18; Pulse Ox 100% on R/A; tr6 20:27 BP 102 / 76; Pulse 90; Resp 15; Temp 97.9; Pulse Ox 100% ; ch4 17:00 Body Mass Index 24.68 (78.02 kg, 177.80 cm) Vitals: 18:49 Cardiac Rhythm Assessment Irregular Atrial fibrillation. tr6 ED Course: 16:45 Patient arrived in ED. ds1 16:55 Td Yancey MD is Attending Physician. wan 17:04 Triage completed. ss 17:04 Arm band placed on right wrist. 17:05 Linnette Torres RN is Primary Nurse. tr6 17:50 XRAY Chest (1 view) In Process Unspecified. EDMS 18:07 Inserted saline lock: 18 gauge in right EJ, using aseptic technique. ,using aseptic tr6 technique. placed by MD Yancey Blood collected. 18:08 No apparent distress. Resting quietly. Awaiting lab results. tr6 18:08 Patient has correct armband on for positive identification. Fall risk band placed. tr6 Placed in gown. Bed in low position. Call light in reach. Side rails up X 1. Side rails up X2. library monitor on. Pulse ox on. NIBP on. Door closed. Noise minimized. Visitors limited. Lights dimmed. Moved to private room. Warm blanket given. Diet: Patient is NPO. 18:08 No provider procedures requiring assistance completed. Patient maintains SpO2 tr6 saturation greater than 95% on room air. 19:01 CT Stone Protocol In Process Unspecified. EDMS 19:26 Derek Banks MD is Hospitalizing Provider. [facility] 06/11 08:33 Patient admitted, IV remains in place. tr6 Administered Medications: 06/10 18:49 Drug: NS 0.9% (30 ml/kg) 30 ml/kg Route: IV; Rate: bolus; Site: Other; tr6 18:49 Drug: Pepcid (famotidine) 20 mg Route: IVP; Site: Other; tr6 18:49 Drug: Rocephin (cefTRIAXone) 1 grams Route: IV; Rate: per protocol; Site: Other; tr6 20:00 Drug: Potassium Chloride 20 mEq Route: IV; Rate: per protocol; Site: left jugular; ch4 20:26 Drug: NS 0.9% with KCl 20 mEq/L 1000 ml Route: IV; Rate: 75 ml/hr; Site: left jugular; ch4 20:26 Drug: Potassium Effervescent Tablet 25 mEq Route: PO; ch4 20:35 Drug: NS 0.9% (30 ml/kg) 30 ml/kg Route: IV; Rate: bolus; Site: right jugular; ch4 20:36 Follow up: IV Status: Order to discontinue infusion ch4 20:36 Follow up: IV Status: Order to discontinue infusion ch4 20:37 Follow up: IV Status: Order to discontinue infusion ch4 06/11 07:31 Follow up: IV Status: Infusion continued upon admission ss Outcome: 06/10 19:28 Decision to Hospitalize by Provider. wan 06/11 08:32 Admitted to Tele accompanied by nurse, via stretcher, room 229, Report called to tr6 michelle Condition: good Instructed on the need for admit, Demonstrated understanding of instructions. 08:58 Patient left the ED. tr6 Signatures: Dispatcher [employer] Td Lan MD MD cha Sanford, Demi ds1 Leia Butterfield RN RN ss Linnette Torres RN RN tr6 Rosario Patel RN RN ch4
--- NOTE | 2021-06-10 19:28 | EDPHYS ---
Physician Documentation [facility] Name: Irene Bauer Age: 80 yrs Sex: Female : 1940 Arrival Date: 06/10/2021 Time: 16:45 Bed 18 Private MD: KLEBER Physician Td Yancey HPI: 06/10 18:14 This 80 yrs old Female presents to ER via EMS with complaints of Dizziness. wan 18:14 This 80 yrs old Female presents to ER via EMS with complaints of Dizziness. wan 18:14 The patient presents with dizziness, generalized weakness. Onset: The symptoms/episode wan began/occurred 1 day(s) ago. Context: occurred at home, occurred while the patient was UNK. Modifying factors: The symptoms are alleviated by nothing, the symptoms are aggravated by nothing. Associated signs and symptoms: The patient has no apparent associated signs or symptoms. Severity of symptoms: At their worst the symptoms were mild in the emergency department the symptoms are unchanged. Patient's baseline: Neuro: alert and fully oriented. The patient has not experienced similar symptoms in the past. Historical: - Allergies: 17:04 NKA; ss - Home Meds: 17:04 Xarelto 15 mg Oral tab daily [Active]; Benicar HCT 40-25 mg Oral tab 1 tab once daily ss [Active]; Cymbalta 20 mg Oral cpDR 1 cap [Active]; diltiazem HCl 60 mg Oral cp12 1 cap 2 times per day [Active]; Lasix 40 mg Oral tab 1 tab 2 times per day [Active]; Toprol XL 50 mg Oral Tb24 1 tab twice a day for Hypertension [Active]; metolazone 2.5 mg oral tab 2 tabs 2 per week on Sundays and [Active]; Zyrtec 10 mg Oral tab 1 tab once daily [Active]; - PMHx: 17:04 Atrial Fib; Cataracts; Hypertension; Glaucoma; colon cancer; NOSE BLEEDS; ss osteoarthritis of spine; CHF; Osteopenia; Osteoporosis; TIA; - Immunization history:: Client reports receiving the 2nd dose of the Covid vaccine. - Social history:: Smoking status: Patient denies any tobacco usage or history of. - Family history:: not pertinent. ROS: 18:14 Constitutional: Negative for fever, chills, and weight loss, Eyes: Negative for injury, wan pain, redness, and discharge, ENT: Negative for injury, pain, and discharge, Neck: Negative for injury, pain, and swelling, Cardiovascular: Negative for chest pain, palpitations, and edema, Respiratory: Negative for shortness of breath, cough, wheezing, and pleuritic chest pain, Abdomen/GI: Negative for abdominal pain, nausea, vomiting, diarrhea, and constipation, Back: Negative for injury and pain, MS/Extremity: Negative for injury and deformity, Skin: Negative for injury, rash, and discoloration, Psych: Negative for depression, anxiety, suicide ideation, homicidal ideation, and hallucinations, Allergy/Immunology: Negative for hives, rash, and allergies, Endocrine: Negative for neck swelling, polydipsia, polyuria, polyphagia, and marked weight changes, Hematologic/Lymphatic: Negative for swollen nodes, abnormal bleeding, and unusual bruising. 18:14 : Positive for difficulty urinating. Exam: 18:14 Constitutional: This is a well developed, well nourished patient who is awake, alert, wan and in no acute distress. Head/Face: Normocephalic, atraumatic. Eyes: Pupils equal round and reactive to light, extra-ocular motions intact. Lids and lashes normal. Conjunctiva and sclera are non-icteric and not injected. Cornea within normal limits. Periorbital areas with no swelling, redness, or edema. ENT: Nares patent. No nasal discharge, no septal abnormalities noted. Tympanic membranes are normal and external auditory canals are clear. Oropharynx with no redness, swelling, or masses, exudates, or evidence of obstruction, uvula midline. Mucous membranes moist. Neck: Trachea midline, no thyromegaly or masses palpated, and no cervical lymphadenopathy. Supple, full range of motion without nuchal rigidity, or vertebral point tenderness. No Meningismus. Chest/axilla: Normal chest wall appearance and motion. Nontender with no deformity. No lesions are appreciated. Cardiovascular: Regular rate and rhythm with a normal S1 and S2. No gallops, murmurs, or rubs. Normal PMI, no JVD. No pulse deficits. Respiratory: Lungs have equal breath sounds bilaterally, clear to auscultation and percussion. No rales, rhonchi or wheezes noted. No increased work of breathing, no retractions or nasal flaring. Abdomen/GI: Soft, non-tender, with normal bowel sounds. No distension or tympany. No guarding or rebound. No evidence of tenderness throughout. Back: No spinal tenderness. No costovertebral tenderness. Full range of motion. Skin: Warm, dry with normal turgor. Normal color with no rashes, no lesions, and no evidence of cellulitis. MS/ Extremity: Pulses equal, no cyanosis. Neurovascular intact. Full, normal range of motion. Neuro: Awake and alert, GCS 15, oriented to person, place, time, and situation. Cranial nerves II-XII grossly intact. Motor strength 5/5 in all extremities. Sensory grossly intact. Cerebellar exam normal. Normal gait. Psych: Awake, alert, with orientation to person, place and time. Behavior, mood, and affect are within normal limits. 18:14 Musculoskeletal/extremity: DVT Exam: No signs of deep vein thrombosis. no pain, no swelling, no tenderness, negative Homans' sign noted on exam, no appreciated bluish discoloration, no erythema, no increased warmth. 19:43 ECG was reviewed by the Attending Physician. [facility] Vital Signs: 17:00 BP 97 / 52; Pulse 88; Resp 16; Temp 97.8(TE); Pulse Ox 96% on R/A; Weight 78.02 kg; Height 5 ft. 10 in. (177.80 cm); Pain 0/10; 18:49 BP 113 / 64; Pulse 78; Resp 18; Pulse Ox 100% on R/A; tr6 20:27 BP 102 / 76; Pulse 90; Resp 15; Temp 97.9; Pulse Ox 100% ; ch4 17:00 Body Mass Index 24.68 (78.02 kg, 177.80 cm) Procedures: 18:16 Peripheral line: by aseptic technique a peripheral line was placed in the left external [facility] jugular vein. MDM: 16:56 Patient medically screened. [facility] 18:16 Differential diagnosis: cardiac arrhythmia, generalized weakness, GI bleed, wan near-syncope, sepsis, syncope. Data reviewed: vital signs, nurses notes, lab test result(s), EKG, radiologic studies, CT scan, plain films. Data interpreted: ekg monitor tech: rate is 88 beats/min, rhythm is regular, Pulse oximetry: is not applicable for this patient encounter. Counseling: I had a detailed discussion with the patient and/or guardian regarding: the historical points, exam findings, and any diagnostic results supporting the discharge/admit diagnosis. 06/10 17:00 Order name: Basic Metabolic Panel; Complete Time: 19:48 [facility] 06/10 17:00 Order name: CBC with Diff; Complete Time: 19:20 [facility] 06/10 17:00 Order name: LFT's; Complete Time: 19:48 [facility] 06/10 17:00 Order name: Magnesium; Complete Time: 19:48 [facility] 06/10 17:00 Order name: NT PRO-BNP; Complete Time: 19:48 [facility] 06/10 17:00 Order name: PT-INR; Complete Time: 19:20 [facility] 06/10 17:00 Order name: Troponin (emerg Dept Use Only); Complete Time: 19:48 [facility] 06/10 17:00 Order name: Lipase; Complete Time: 19:48 [facility] 06/10 17:00 Order name: Urine Culture [facility] 06/10 17:00 Order name: Blood Culture Adult (2) [facility] 06/10 17:00 Order name: Lactate; Complete Time: 18:32 [facility] 06/10 18:48 Order name: SARS-COV-2 RT PCR; Complete Time: 19:20 [facility] 06/10 21:35 Order name: Urine Microscopic Only 06/10 17:00 Order name: XRAY Chest (1 view); Complete Time: 18:32 [facility] 06/10 18:33 Order name: CT Stone Protocol; Complete Time: 19:20 [facility] 06/10 21:35 Order name: Urine Dipstick-Ancillary [facility] 06/10 21:59 Order name: Urine Microscopic Only [facility] 06/10 22:05 Order name: Lactate Sepsis 2 HR Follow-up [facility] 06/11 00:44 Order name: Potassium [facility] 06/11 00:44 Order name: Troponin I [facility] 06/11 03:54 Order name: CBC with Automated Diff [facility] 06/11 04:09 Order name: Troponin I [facility] 06/11 04:13 Order name: Basic Metabolic Panel [facility] 06/10 17:00 Order name: EKG; Complete Time: 17:01 [facility] 06/10 17:00 Order name: Cardiac monitoring; Complete Time: 18:25 [facility] 06/10 17:00 Order name: EKG - Nurse/Tech; Complete Time: 19:32 [facility] 06/10 17:00 Order name: IV Saline Lock; Complete Time: 18:25 [facility] 06/10 17:00 Order name: Labs collected and sent; Complete Time: 18:25 [facility] 06/10 17:00 Order name: O2 Per Protocol; Complete Time: 18:25 [facility] 06/10 17:00 Order name: O2 Sat Monitoring; Complete Time: 18:25 [facility] 06/10 17:00 Order name: IV Saline Lock - Large Bore; Complete Time: 18:24 [facility] 06/10 19:35 Order name: CONS Physician Consult [facility] 06/10 19:35 Order name: CONS Physician Consult [facility] 06/10 19:43 Order name: Misc. Order: get ua please; Complete Time: 21:25 wan EC:43 Rate is 78 beats/min. Rhythm is irregularly irregular. QRS [place] is Normal. LA interval wan is normal. QRS interval is normal. QT interval is normal. No Q waves. T waves are Normal. No ST changes noted. Clinical impression: Atrial Fibrillation and No evidence of ischemia. Interpreted by me. Reviewed by me. Administered Medications: 18:49 Drug: NS 0.9% (30 ml/kg) 30 ml/kg Route: IV; Rate: bolus; Site: Other; tr6 18:49 Drug: Pepcid (famotidine) 20 mg Route: IVP; Site: Other; tr6 18:49 Drug: Rocephin (cefTRIAXone) 1 grams Route: IV; Rate: per protocol; Site: Other; tr6 20:00 Drug: Potassium Chloride 20 mEq Route: IV; Rate: per protocol; Site: left jugular; ch4 20:26 Drug: NS 0.9% with KCl 20 mEq/L 1000 ml Route: IV; Rate: 75 ml/hr; Site: left jugular; ch4 20:26 Drug: Potassium Effervescent Tablet 25 mEq Route: PO; ch4 20:35 Drug: NS 0.9% (30 ml/kg) 30 ml/kg Route: IV; Rate: bolus; Site: right jugular; ch4 20:36 Follow up: IV Status: Order to discontinue infusion ch4 20:36 Follow up: IV Status: Order to discontinue infusion ch4 20:37 Follow up: IV Status: Order to discontinue infusion ch4 06/11 07:31 Follow up: IV Status: Infusion continued upon admission ss Disposition Summary: 08/28/21 19:28 Hospitalization Ordered Hospitalization Status: Inpatient Admission wan Provider: Derek Banks cha Condition: Fair wan Problem: new wan Symptoms: have improved wan Bed/Room Type: Standard wan Location: Telemetry/MedSurg (Inpatient)(06/11/21 07:53) eb Room Assignment: 229(06/11/21 07:53) eb Diagnosis - Hypotension, unspecified wan - Unspecified atrial fibrillation wan - Weakness wan - Unspecified kidney failure - ACUTE ON CHRONIC wan - Hypokalemia wan Forms: - Medication Reconciliation Form wan - SBAR form wan Signatures: Dispatcher [employer] EDMS Rosa Lizama RN RN mw Anderson, Corey, MD MD cha Smirch, Shelby, RN RN Irma Davalos Tiffany, RN RN tr Rosario Patel RN RN ch4 Corrections: (The following items were deleted from the chart) 06/10 17:56 17:01 CORONAVIRUS+MR.LAB.BRZ ordered. EDN[facility] EDMS 20:58 19:28 Telemetry/MedSurg (Inpatient) wan mw 20:58 19:28 wan mw 06/11 07:53 06/10 20:58 BR ER HOLD mw eb 06/11 07:53 06/10 20:58 ERHOLD- mw eb 06/11 07:53 07:53 218 eb eb
[2021-06-10 19:29] LABS: Albumin 3.1 g/dL (3.4-5.0); Bilirubin Direct 0.2 mg/dL (0-0.2); Lipase 230 U/L (73-393); Magnesium 2.2 mg/dL (1.8-2.4); NT PRO-BNP 4212 pg/mL (<450); Protein, Total 6.3 g/dL (6.4-8.2); Troponin (Emerg Dept Use Only) < 0.02 ng/mL (0.0-0.045)
[2021-06-10 19:45] LABS: Potassium 2.6 mmol/L (3.5-5.1)
[2021-06-10] MEDS ORDERED: KCL 20 MEQ/100 mL IVPB 20 MEQ/100 ML BAG IV ONE (20:22)
[2021-06-10] MEDS ORDERED: POTASSIUM 25 MEQ EFFERV TAB ONE (20:39)
[2021-06-10] MEDS ORDERED: NS KCL 20MEQ 1,000 ML IV ONE (20:40)
[2021-06-10 21:35] LABS: Urine Blood Negative (Negative); Urine Glucose Negative (Negative); Urine Protein Trace (Negative); Urine Specific Gravity 1.015 (1.005-1.030)
[2021-06-10 21:58] LABS: Urine Bacteria 20-50 /HPF (<20)
[2021-06-10 23:01] VITALS: BMI 24.6
[2021-06-10] MEDS ORDERED: FAMOTIDINE 20 MG/2 ML VIAL IV SCH (23:32)
[2021-06-10] MEDS ORDERED: ONDANSETRON 4 MG/2 ML VIAL IV PRN (23:32)
[2021-06-10] MEDS ORDERED: ACETAMINOPHEN 500 MG TAB PO PRN (23:32)
[2021-06-10] MEDS ORDERED: CEFTRIAXONE 1 GM/NS 50 ML 1 GM/50 ML BAG IV SCH (23:32)
[2021-06-10] MEDS: NS KCL 20MEQ 20 MEQ/1,000 ML BAG IV SCH (23:32)
[2021-06-10] MEDS: IPRATROPIUM BROM 0.5MG/2.5ML NEB SCH (23:45)
[2021-06-10] MEDS: ALBUTEROL 2.5 MG/3 ML NEB SOL NEB SCH (23:45)
[2021-06-11] MEDS ORDERED: NA CHLORIDE 0.9% 50 ML ONE (00:05)
[2021-06-11] MEDS ORDERED: CEFTRIAXONE 1000 MG/VIAL ONE (00:05)
[2021-06-11] MEDS ORDERED: FAMOTIDINE 20 MG/2 ML VIAL IV ONE (00:05)
[2021-06-11 00:44] LABS: Troponin I < 0.02 ng/mL (0.0-0.045)
[2021-06-11] MEDS: ALBUTEROL 2.5 MG/3 ML NEB SOL NEB SCH ×3 (02:40→13:16)
[2021-06-11] MEDS: IPRATROPIUM BROM 0.5MG/2.5ML NEB SCH ×3 (02:40→13:16)
[2021-06-11] MEDS ORDERED: IPRATROPIUM BROM 0.5MG/2.5ML ONE ×2 (02:59→09:09)
[2021-06-11] MEDS ORDERED: ALBUTEROL 2.5 MG/3 ML NEB SOL ONE ×2 (02:59→09:09)
[2021-06-11 03:47] LABS: Absolute Lymphocytes (CBC) 2.1 K/uL (0.7-4.9); Basophils % 0.2 % (0-1.3); Hematocrit 44.5 % (36.0-45.0); Lymphocytes % 30.6 % (15.3-44.8); MPV 9.3 fL (7.6-11.3); RBC Red Blood Cell Count 4.71 M/uL (3.86-4.86)
[2021-06-11] MEDS ORDERED: ACETAMINOPHEN 325 MG TABLET PO PRN (08:00)
[2021-06-11] MEDS ORDERED: POTASSIUM CL SA 10 MEQ TAB PO ONE (08:31)
--- NOTE | 2021-06-11 09:51 | RAD REPORT ---
EXAM DESCRIPTION: Manjinder Single View06/11/2021 5:15 am CLINICAL HISTORY: Chest pain COMPARISON: June 10, 2021 FINDINGS: The lungs appear clear of acute infiltrate. The heart is moderately enlarged IMPRESSION: No acute abnormalities displayed
[2021-06-11] MEDS: FAMOTIDINE 20 MG/2 ML VIAL IV SCH (10:43)
[2021-06-11] MEDS: CEFTRIAXONE/SWI 1gm 1 GM/10 ML SYR IV SCH ×2 (10:43→19:59)
--- NOTE | 2021-06-11 12:13 | SS ---
Date of Discharge: 06/11/2021 Chief Complaint: Feeling dizzy. History Of Present Illness: An 80-year-old female patient, who came into emergency room last night w ith complaints of feeling dizzy. She states her blood pressure at home was 100/35 and she felt reall y dizzy where she felt like she might faint. She came into emergency room and after she was evaluate d, she was admitted to the hospital. Her potassium was extremely low at 2.6. When I saw her this mo rning, she was feeling better compared to last night. Denies any vomiting, diarrhea. Allergies: NO KNOWN ALLERGIES. Medications: Atorvastatin 40 mg daily at bedtime; Caltrate plus D 1 tablet 2 times a day; duloxetine 20 mg daily with breakfast; famotidine 40 mg daily at bedtime; furosemide 40 mg, takes 2 tablets 2 t imes a day; metolazone 2.5 mg, takes 1 tablet 2 times a week; metoprolol 50 mg 2 times a day; olmesar musa 40 mg daily as needed for systolic blood pressure more than 140; potassium chloride 10 mEq, her u sual dose was 1 tablet daily recently, she was asked to increase dose to 1 tablet 3 times a day for 4 days, then to change it to 1 tablet 2 times a day to continue; Xarelto 15 mg daily; tramadol p.r.n.; Nasacort p.r.n.; Alphagan eye drops. Review of Systems: QUALITY IMPROVEMENT COORDINATOR: As mentioned above. Cardiovascular: As mentioned above. All other systems reviewed and negative. Past Medical History: Significant for allergic rhinitis, impaired fasting glucose, hypertension, mix ed hyperlipidemia, chronic diastolic congestive heart failure, atrial fibrillation paroxysmal, divert iculosis , chronic kidney disease stage 4, leg edema, varicose veins, osteoarthritis at mul tiple sites, anxiety, depression. Past Surgical History: Significant for resection of colon due to colon cancer on June 28, 2012, hysterectomy and bladder suspension and back surgery. Family History: Father had stroke. Mother had colon cancer. Social History: Negative for smoking and alcohol use. Physical Examination: Vital Signs: Temperature 97, pulse 98, respiratory rate 21, blood pressure 130/64, oxygen saturation 100% on room air. Height is not recorded correctly according to hospital record. It is recorded as 5 feet 10 inches, which is not true. Her height is 5 feet 5 inches according to my outpatient recor ds and her weight recorded today 171 pounds. General: Awake, alert, oriented, not in distress. HEENT: Head atraumatic, normocephalic. Conjunctivae nonerythematous. Sclerae white. Mouth, no thr ush or edema noted. Ears/Nose, no mass, lesion, discharge noted. Neck: Supple. No JVD, lymph nodes, bruit, thyromegaly noted. Lungs: Bilateral good equal air entry. Clear to auscultation. No rhonchi. No rales. Heart: Normal heart sounds, no murmur or gallop. Abdomen: Soft, bowel sounds normal. No guarding, rigidity, tenderness, mass, hepatosplenomegaly, dis tention, or bruit noted. Extremities: No leg edema. No calf tenderness. Skin: No rash, ulcer, cellulitis. Lymphatics: No lymph node enlargement in neck, supraclavicular, infraclavicular region. Neuro: No focal neurological deficit. Chest: Unremarkable. External Genitalia: Deferred. Rectal: Deferred. Laboratory Data: Yesterday; white count 8.7, hemoglobin 14.4, platelets 187. Today; white count 6.7 , hemoglobin 14.9, platelets 160. INR 1.82. Yesterday; sodium 136, potassium 2.6, chloride 93, bica rb 32, BUN 59, creatinine 1.84, glucose 151, lactic acid 2.8, magnesium 2.2. AST 30, ALT 26, alkalin e phosphatase 107. Troponin less than 0.02. ProBNP 4212. Lipase 230. Repeat troponin less than 0. 02. This morning; sodium 142, potassium 3, chloride 101, bicarb 33, BUN 54, creatinine 1.49, glucose 183. Urinalysis positive for nitrite, esterase 1+, WBC 10-20, bacteria 20-100. COVID-19 test negat sravanthi. Chest x-ray, no acute cardiopulmonary changes. CAT scan of abdomen per kidney stone protocol w as negative for any stone or any acute findings. Impression: 1.Hypokalemia. 2.Dizziness. 3.Urinary tract infection. 4.Chronic kidney disease, stage 4. 5.Chronic diastolic heart failure. 6.Paroxysmal atrial fibrillation. 7.Hypertension. 8.Mixed hyperlipidemia. 9.Diverticulosis. 10.Impaired fasting glucose. 11.Osteoarthritis, multiple sites. 12.Anxiety. 13.Depression. Hospital Course: The patient was evaluated in ER and admitted to the hospital. We will correct her potassium. Currently, she is getting IV potassium replacement. I will give her 40 mEq of potassium chloride by mouth and we will recheck her potassium this afternoon and then plan to discharge her to go home depending on her condition. I did communicate with her regarding this. She has history of r ecurrent UTI when she was at office 2 days ago. Her urinalysis was abnormal consistent with urinary tract infection. Urine culture was done and she was started on antibiotic, Cipro. We will continue empiric antibiotics and make adjustment on antibiotic if necessary depending on the urine culture res ults. I have advised her that upon discharge from the hospital, she will need to continue her potass ium chloride 10 mEq tablets 3 times a day on an ongoing basis and come to the office for blood work t o be done during week of June 19, 2021 for followup on this low potassium level. Discharge Medications And Instructions: 1.Continue all previous home medications except change potassium chloride 10 mEq, take 1 tablet 3 ti mes a day. 2.Continue antibiotic, Cipro which was prescribed 2 days ago from the office. HITESH/MODL Voice ID: [id number] Report ID: [id number]
--- NOTE | 2021-06-11 12:35 | RAD REPORT ---
EXAM DESCRIPTION: US - Renal Ultrasound-Complete - 06/11/2021 12:13 pm CLINICAL HISTORY: Acute renal insufficiency COMPARISON: None. FINDINGS: The right kidney measures 9 cm with a normal echotexture. The left kidney measures 9 cm with a normal echotexture. Hydronephrosis is not seen. No gross abnormality of bladder is seen IMPRESSION: No significant abnormality is displayed
[2021-06-11] MEDS: NS KCL 20MEQ 20 MEQ/1,000 ML BAG IV SCH (15:43)
[2021-06-11] MEDS ORDERED: RIVAROXABAN 15 MG TABLET PO SCH (17:00)
[2021-06-11 17:10] LABS: Magnesium 2.3 mg/dL (1.8-2.4); Potassium 3.6 mmol/L (3.5-5.1)
--- NOTE | 2021-06-11 17:13 | CON ---
Date of Consultation: 06/11/2021 Reason For Consultation: Elevated BUN and creatinine, fluid management. History Of Present Illness: This is an 80-year-old female with significant past medical history of a llergic rhinitis, hypertension, hyperlipidemia, congestive heart failure, nonischemic diastolic dysfu nction, AFib, chronic kidney disease, the patient was in her regular state of health, came to the [facility] because her blood pressure was on the lower side down to the 100, feeling dizzy, fatigued. For that reason, reported to the hospital. Upon arrival to the hospital, creatinine was found as 1.8. For that reason, we have been consulted. Reviewing the record for the patient back in February, creatinin e is 1.6 and GFR of 30. The patient denied taking any nonsteroidal. The patient has been on CLAUDIA inh ibitor, Lasix and hydrochlorothiazide with metolazone. According to the patient, the patient used to be on metolazone 5 mg twice a week because of the worsening kidney function, was decreased by her pr imary, Dr. Banks, to 2.5 once a week, then the patient fluctuated with gaining more fluid. For that r cecil, had been increased back to twice a week. The patient again her symptoms of the dizz iness, weakness. For that reason, reported to the hospital. Over the night, the patient was started on gentle hydration. Kidney function start backing to her baseline. Past Medical History: Includes; 1.Congestive heart failure, nonischemic diastolic dysfunction. 2.AFib, paroxysmal. 3.Diverticulosis. 4.Chronic kidney disease, stage 3B/4. Baseline creatinine 1.6, GFR of 30 as of February 2021. 5.Leg edema. 6.Varicose pain. 7.Osteoarthritis. Past Surgical History: Includes; 1.Colon resection secondary to colon cancer back in 2011. 2.Hysterectomy. 3.Bladder suspension. Family History: Positive for CVA and colon cancer. Social History: Denied smoking. Denied drinking. Denied drugs abuse. Home Medications: Include; 1.Atorvastatin. 2.Calcitriol. 3.Duloxetine. 4.Lasix 80 mg b.i.d. 5.Metolazone 2.5 mg twice a week. 6.Metoprolol 50 b.i.d. 7.Olmesartan 40 daily. 8.KCl. 9.Xarelto. 10.Nasonex. Review of Systems: Head and Neck: Has lightheaded. GI: Nausea without any vomiting. : No polyuria. No dysuria. No hematuria. Contract Implementation Analyst: No vaginal discharge. Respiratory: No shortness of breath. Cardiovascular: No orthopnea. Has leg swelling. Endocrine: No polydipsia. Skin: No rash. Neuro: Generalized fatigue, lightheaded. No fall. Musculoskeletal: Generalized fatigue, joint pain and taking Tylenol for it. Physical Examination: General: When I saw the patient, the patient lying in bed, not on any distress. Vital Signs: Blood pressure of 130/64, pulse of 98, afebrile. The patient when arrived to the [facility] blood pressure was down to 97. Chest: Clear to auscultation. Heart: S1, S2 are regular. Systolic murmur. Abdomen: Soft, nontender. Extremities: No edema. Neurologic: Alert, oriented x3. No focal. Laboratory Data: Upon admission to the hospital; sodium 136, potassium 2.6, bicarb 32, BUN 59, creat inine 1.8, GFR 26. Back in February, creatinine 1.6, GFR of 30. Today, the lab data; sodium 142, potassi um 3, bicarb 33, BUN 54, creatinine 1.4, calcium 8.4. Lactic acid 3.8. BNP 4200. TSH 5.6 back in A pril. WBC 6.7, H and H 14.9/44.5. Renal ultrasound; 9/9 cm, no hydronephrosis. Urinalysis; WBC 10- 20, specific gravity 1.015, trace of protein. Assessment And Plan: 1.Acute kidney injury secondary to prerenal, secondary to over diuresis superimposed with toxic ATN secondary to urinary tract infection, superimposed with CLAUDIA inhibitor and Lasix/hydrochlorothiazide, looked to me still on the dry side. I agree with holding all diuresis. We will monitor the patient, rather not add any IV fluid right now to avoid worsening her cardiac congestive heart failure status and we will monitor the patient closely. Upon discharge, I rather hold the metolazone and decrease the Lasix to 40 b.i.d. 2.Urinary tract infection. I agree with ceftriaxone. 3.Hypokalemia secondary to over diuresis. We will continue on the supplement. I am going to go ahe ad and get magnesium level and we will follow up the patient. 4.Congestive heart failure, diastolic dysfunction with the presence of acute kidney injury. We will back up on the diuresis, hold metolazone, decrease the Lasix upon discharge to 40 b.i.d., and we keyona l follow up. Thank you, Dr. Banks for allowing us to participate in the care of your patient. PILO Voice ID: [id number] Report ID: [id number]
[2021-06-11] MEDS: METOPROLOL TAR 50 MG TAB PO SCH (18:18)
[2021-06-11] MEDS: DIGOXIN 0.25 MG/ML AMP IV SCH (19:51)
[2021-06-11] MEDS ORDERED: ATORVASTATIN 40 MG TAB PO SCH (21:00)
[2021-06-11 21:55] LABS: UR PROTEIN 17.8 mg/dL (<11.9); Urine Protein/Creatinine Ratio 0.49 ratio (<0.15)
[2021-06-12] MEDS: DIGOXIN 0.25 MG/ML AMP IV SCH (00:45)
[2021-06-12 06:46] LABS: Albumin 3.1 g/dL (3.4-5.0); Magnesium 2.3 mg/dL (1.8-2.4); Phosphorus 2.4 mg/dL (2.5-4.9); Potassium 3.6 mmol/L (3.5-5.1); Uric Acid 8.3 mg/dL (2.6-6.0)
[2021-06-12 06:49] LABS: Thyroid Stimulating Hormone 2.43 uIU/mL (0.360-3.740)
[2021-06-12] MEDS: CEFTRIAXONE/SWI 1gm 1 GM/10 ML SYR IV SCH (07:59)
[2021-06-12] MEDS: FAMOTIDINE 20 MG/2 ML VIAL IV SCH (07:59)
[2021-06-12] MEDS: METOPROLOL TAR 50 MG TAB PO SCH (07:59)
[2021-06-12 11:41] VITALS: BP 135/87; TEMP 96.8
--- NOTE | 2021-06-12 12:37 | CON ---
Date of Consultation: 06/12/2021 Reason For Consultation: Hypokalemia and hypotension. History Of Present Illness: Ms. Bauer is 80, is known to me from previous office visits and admissio n. She has chronic atrial fibrillation for which she takes Xarelto. She has hypertension, multiple TIAs, and has a history of diastolic congestive heart failure as well as dyslipidemia. She comes in weak and dizzy, low blood pressure, was noted to have a creatinine of 1.84 consistent with dehydratio n, potassium 2.6 which was supplemented to 3.0. The last creatinine is 1.49. She also was found to have UTI, glucose of 186. Her BNP was 4212. By the time I saw her, she is feeling back to normal. She has received antibiotics, inhalers, potassium supplementation, and hydrated. Dr. Banks planned to send her home on potassium supplements in addition to her normal regimen and agree with that. Past Medical History: As stated above. Allergies: NONE. Review of Systems: Negative. Social History: Negative. Family History: Negative. Medications: At home include Cymbalta, diltiazem, metolazone, Lasix, metoprolol, Lipitor, and Xarelt o. Physical Examination: General: When I saw Mrs. Bauer this morning, she was in no acute distress. She was pleasant than us ual. Vital Signs: Her vital signs were stable. She was in atrial fibrillation, rate of 80, afebrile. HEENT: Negative. Neck: Supple with no bruit. Chest: Clear. Cardiac: Revealed atrial fibrillation. Abdomen: Benign. Extremities: Revealed 1+ edema. Neurologic: She was nonfocal. Diagnostic Data: As stated earlier. Impression And Plan: Hypotension, weakness, dizziness, increased creatinine and low potassium. All secondary to dehydration, may be from the urinary tract infection and that is all exacerbated by Lasi x and metolazone. Her potassium is improved. She feels better. Her creatinine has come down. She was being treated with antibiotics, inhaler, potassium and hydration. I am comfortable with her jeannette g home on home regimen plus potassium supplementation. She will see Dr. aBnks and myself in the near future, probably should continue antibiotics. We should have draw some blood work in the near future . Her other problems including transient ischemic attack and history of atrial fibrillation that are stable. She is on Xarelto, which she will continue. RASHIDA/LAWANDA Voice ID: [id number] Report ID: [id number]
[2021-06-12 13:10] VITALS: O2SAT 100
--- NOTE | 2021-06-13 01:36 | PN ---
Date of Progress Note: 06/12/2021 Chief Complaint: Acute kidney injury, elevated BUN and creatinine. History: The patient is an 80-year-old woman, she was admitted to the hospital because of generalize d weakness. She has history of congestive heart failure kidney, non-ischemic diastolic dysfunction, atrial fibrillation. She has been on chronic treatment with diuretics. She was found to have hypoka lemia and elevated BUN and creatinine, acute kidney injury secondary to diuretics and hypovolemia. C reatinine level was 1.6. Patient was treated with multiple medications before this admission and she received CLAUDIA inhibitor, Lasix, hydrochlorothiazide, and metolazone. Renal function has declined and improved during this admission with adjustment of medication. Diuretics were reduced. Review of Systems: Denies fever, chills. Physical Examination: Lungs: Clear to auscultation bilaterally. Heart: S1, S2. Abdomen: Soft, benign. Extremities: No edema. Impression And Plan: 1.Acute kidney injury secondary to diuretic treatment. There is element of acute tubular necrosis s econdary to renal hypoperfusion and effect of CLAUDIA inhibitor and combination with multiple diuretics. 2.Hypokalemia. Due to diuretics, continue replacement and check potassium level. Monitor magnesium level and plan replacement as needed. 3.Urinary tract infection. Continue antibiotics. 4.Hypokalemia, resolved. Magnesium level will be evaluated. QUINCY/MODL Voice ID: [id number] Report ID: [id number]
--- NOTE | 2021-06-13 07:12 | DS ---
Date of Discharge: 06/12/2021 Disposition: Discharged to go home. Physical Examination: HEENT: Unremarkable. Lungs: Clear to auscultation. Heart: Sounds normal. Abdomen: Soft. Bowel sounds normal. No guarding, rigidity, tenderness, or distention. Extremity: No leg edema. Laboratory Data: Today; sodium 142, potassium 3.6, chloride 106, bicarb 32, BUN 33, creatinine 0.79, glucose 169. Upon admission; white count 8.7, hemoglobin 14.4, platelets 187. Chemistry; sodium 13 6, potassium 2.6, chloride 93, bicarb 32, BUN 59, creatinine 1.84, lactic acid 2.8, magnesium 2.2. C AT scan of the abdomen per kidney stone protocol was negative for any stone or acute findings. Chest x-ray negative for acute cardiopulmonary changes. Urinalysis was abnormal with nitrite and esterase positive 1+, other bacteria 20-50, WBC 10-28. Urine culture did not grow any specific bacteria. Hospital Course: An 80-year-old pleasant female patient, admitted to the hospital with complaints of feeling dizziness. Please see dictated H and P for more information. After the patient was evaluat ed in the ER, she was admitted to the hospital. She was given IV potassium replacement and oral pota ssium replacement. She also received some IV fluid. Overall, her condition improved, dizziness reso lved. Today when I saw her, she was feeling much better. No more dizziness. No other complaints re ported. Her low potassium was corrected as well. On outpatient basis just about 2 days before she w as admitted to the hospital, she was seen at office and her urinalysis was abnormal consistent with u rinary tract infection. Urine culture was sent. Result is pending and she was started on Cipro. Du ring this hospitalization, we gave her IV ceftriaxone. The patient had problem with atrial fibrillat ion with rapid ventricular rate, heart rate went up to 150-160 range, requiring IV digoxin 2 doses. She has history of paroxysmal atrial fibrillation and she is on metoprolol for that as well as Xarelt o. Her home medications were continued. Final Diagnoses: 1.Hypokalemia. 2.Dizziness. 3.Urinary tract infection. 4.Chronic kidney disease, stage 4. 5.Chronic diastolic heart failure. 6.Paroxysmal atrial fibrillation. 7.Hypertension. 8.Mixed hyperlipidemia. 9.Diverticulosis. 10.Impaired fasting glucose. 11.Osteoarthritis, multiple sites. 12.Anxiety. 13.Depression. Discharge Medications And Instructions: 1.Continue all prior home medications including antibiotics, Cipro which was prescribed a few days a go. 2.Continue all other home medications except following changes;. a.Increase potassium chloride 10 mEq, take 1 tablet by mouth 3 times a day. b.Decrease metolazone 2.5 mg, take 1 tablet by mouth once a week. 3.Come to office next week on Saturday or Saturday for nonfasting blood test and follow up with me next week on Saturday or . HITESH/MODL Voice ID: [id number] Report ID: [id number]
--- NOTE | 2021-06-13 16:16 | EKG ---
Test Date: 2021-06-11 Test Time: 15:10:19 Co Founder And Chairman: ESTRADA MEASUREMENT RESULTS: Intervals: Rate: 130 ID: QRSD: 70 QT: 326 QTc: 479 Hope: P: ID: QRS: 37 T: -51 INTERPRETIVE STATEMENTS: Undetermined rhythm Low voltage QRS Septal infarct, age undetermined ST & T wave abnormality, consider inferior ischemia Abnormal ECG Compared to ECG 06/10/2021 19:27:11 ST (T wave) deviation now present Possible ischemia now present Atrial fibrillation no longer present Myocardial infarct finding still present Electronically Signed On 06-13-21 16:12:06 CDT by Jeffery Rey
--- NOTE | 2021-06-13 16:16 | EKG ---
Test Date: 2021-06-11 Test Time: 15:16:24 Regional Maintenance Manager: ESTRADA MEASUREMENT RESULTS: Intervals: Rate: 115 WI: QRSD: 58 QT: 352 QTc: 486 Delong: P: WI: QRS: 50 T: -68 INTERPRETIVE STATEMENTS: Undetermined rhythm Low voltage QRS Septal infarct, age undetermined Inferior infarct, age undetermined Abnormal ECG Compared to ECG 06/11/2021 15:10:19 ST (T wave) deviation no longer present Possible ischemia no longer present Myocardial infarct finding still present Electronically Signed On 06-13-21 16:12:04 CDT by Jeffery Rey
[2021-06-16 11:44] LABS: Vitamin D 1,25-Dihydroxy Total 20 pg/mL (18-72); Vitamin D,1,25-OH2, D2 <8 pg/mL
== END 2021-06-12 13:48 | disposition home or self-care (01) | DRG 640 ==
LOC: ER 16:44 → ERHOLD 19:32 → 2ND 06-11 08:03
PROVIDERS: ADMIT Internal Medicine; ATTEND Internal Medicine
DX: E87.6 Hypokalemia (principal); N17.0 Acute kidney failure with tubular necrosis; N39.0 Urinary tract infection, site not specified; I13.0 Hypertensive heart and chronic kidney disease with heart failure and stage 1 through stage 4 chronic kidney disease, or unspecified chronic kidney disease; N18.4 Chronic kidney disease, stage 4 (severe); I50.32 Chronic diastolic (congestive) heart failure; R42 Dizziness and giddiness; I48.0 Paroxysmal atrial fibrillation; E78.2 Mixed hyperlipidemia; K57.90 Diverticulosis of intestine, part unspecified, without perforation or abscess without bleeding; M19.90 Unspecified osteoarthritis, unspecified site; F41.8 Other specified anxiety disorders; R73.01 Impaired fasting glucose; Z85.038 Personal history of other malignant neoplasm of large intestine; Z20.822 Contact with and (suspected) exposure to COVID-19
CPT/HCPCS: 36415; 71045; 74176; 76377; 76770; 80048; 80069; 80076; 81003; 81015; 82550; 82570; 82652; 83605; 83690; 83735; 83880; 83970; 84132; 84156; 84443; 84484; 84550; 85025; 85610; 87040; 87086; 87088; 93005; 99285; J0696; J1160; J3480; J7030; U0003

== ENCOUNTER 2021-08-26 12:10 | Inpatient (IN) | payer OTHER ==
[2021-08-26 13:26] LABS: Absolute Lymphocytes (CBC) 1.1 K/uL (0.7-4.9); Basophils % 0.6 % (0-1.3); Hematocrit 55.3 % (36.0-45.0); Lymphocytes % 7.5 % (15.3-44.8); MPV 9.6 fL (7.6-11.3); RBC Red Blood Cell Count 5.84 M/uL (3.86-4.86)
[2021-08-26 13:44] LABS: Albumin 3.8 g/dL (3.4-5.0); Bilirubin Direct 0.4 mg/dL (0-0.2); Bilirubin Total 1.4 mg/dL (0.2-1.0); Potassium 4.6 mmol/L (3.5-5.1); Protein, Total 7.8 g/dL (6.4-8.2)
--- NOTE | 2021-08-26 13:53 | RAD REPORT ---
EXAM DESCRIPTION: CT - Abdomen Pelvis Wo Contrast - 08/26/2021 1:25 pm CLINICAL HISTORY: ABD PAIN COMPARISON: <Comparisons> CT study June 10 TECHNIQUE: Axial [address] imaging of the abdomen and pelvis was performed without IV contrast. No IV contrast was given because of allergy, abnormal renal function, patient refusal or physician re quest. No oral contrast administered. All CT scans are performed using dose optimization technique as appropriate and may include automated exposure control or mA/KV adjustment according to patient size. FINDINGS: No suspicious findings in the lung bases. The liver, spleen and pancreas show no suspicious findings on non-contrast imaging. Gallbladder and b iliary tree are also without suspicious finding. No hydronephrosis or suspicious renal mass. No significant adrenal finding. Isodense renal masses an d pyelonephritis cannot be excluded in the absence of IV contrast. Mostly contracted urinary bladder shows no suspicious finding. Uterus is absent. Ovaries are absent or atrophic. No adnexal abnormality seen. No dilated bowel loops or bowel wall thickening. No free air, free fluid or inflammatory stranding. No hernia, mass or bulky lymphadenopathy. Advanced degenerative changes are present in the spine postsurgical changes noted as well. No acute f indings seen. IMPRESSION: Non-contrast enhanced CT abdomen and pelvis imaging show no acute or emergent finding fi nding. No significant change from June 10 imaging. Full assessment is limited is the absence of IV contrast.
[2021-08-26] MEDS ORDERED: NA CHLORIDE 0.9% 500 ML ONE (13:54)
[2021-08-26] MEDS ORDERED: ONDANSETRON 4 MG/2 ML VIAL ONE (13:54)
[2021-08-26] MEDS ORDERED: NA CHLORIDE 0.9% 1,000 ML ONE (15:14)
[2021-08-26 15:19] LABS: Urine Blood 3+ (Negative); Urine Glucose Negative (Negative); Urine Protein 1+ (Negative); Urine Specific Gravity 1.015 (1.005-1.030)
[2021-08-26 15:50] LABS: Urine Bacteria LOADED /HPF (<20); Urine RBC <5 /HPF (NONE SEEN)
--- NOTE | 2021-08-26 16:30 | RAD REPORT ---
EXAM DESCRIPTION: CT - Head Brain Wo Cont - 08/26/2021 4:19 pm CLINICAL HISTORY: MENTAL STATUS CHANGE COMPARISON: Head Brain Wo Cont dated 04/29/2021 TECHNIQUE: Axial 5 mm thick images of the head were obtained without IV contrast. All CT scans are performed using dose optimization technique as appropriate and may include automated exposure control or mA/KV adjustment according to patient size. FINDINGS: No intracranial hemorrhage, mass, edema or shift of mid-line structures. No acute infarcti on changes seen. Moderate severity atrophy with ventricular size in proportion. Chronic ischemic menchaca ges are mild. Intracranial findings are similar to comparison. Prominent arterial tree calcifications are present. Mastoid air cells and visualized portions of the paranasal sinuses are clear. No acute bony findings. IMPRESSION: No acute intracranial finding identified. Moderate atrophy and mild chronic ischemic changes are present similar to April 29 imaging. Chronic ischemic changes can mask nonhemorrhagic acute infarction. MR brain followup can be obtained if there is ongoing concern for acute ischemia.
--- NOTE | 2021-08-26 16:44 | ER ---
Nurse's Notes [facility] Name: Irene Bauer Age: 80 yrs Sex: Female : 1940 Arrival Date: 08/26/2021 Time: 12:10 Bed 4 Private MD: Derek Banks C Diagnosis: Dehydration;UTI/ Urinary tract infection, site not specified Presentation: 08/26 12:12 Chief complaint: EMS states: 3 DAYS VOMITING. Coronavirus screen: At this time, the bp client does not indicate any symptoms associated with coronavirus-19. Ebola Screen: No symptoms or risks identified at this time. Initial Sepsis Screen: Does the patient meet any 2 criteria? No. Patient's initial sepsis screen is negative. Does the patient have a suspected source of infection? No. Patient's initial sepsis screen is negative. Risk Assessment: Do you want to hurt yourself or someone else? Patient reports no desire to harm self or others. Onset of symptoms is unknown. Care prior to arrival: Glucose check: 126. 12:12 Method Of Arrival: EMS: [facility] bp 12:12 Acuity: ISELA 3 bp Triage Assessment: 12:10 General: Appears in no apparent distress. uncomfortable, Behavior is cooperative, bp appropriate for age, anxious. Pain: Denies pain. EENT: No deficits noted. Neuro: No deficits noted. Cardiovascular: No deficits noted. Respiratory: No deficits noted. GI: Reports vomiting. : No signs and/or symptoms were reported regarding the genitourinary system. Derm: No deficits noted. Musculoskeletal: No deficits noted. Historical: - Allergies: 13:19 NKA; iw - Home Meds: 13:19 alphagan 5 ml nightly [Active]; Benicar HCT 40-25 mg Oral tab 1 tab once daily iw [Active]; Cymbalta 20 mg Oral cpDR 1 cap [Active]; diltiazem HCl 60 mg Oral cp12 1 cap 2 times per day [Active]; Lasix 40 mg Oral tab 1 tab 2 times per day [Active]; metolazone 2.5 mg Oral tab 2 tabs 2 per week on Sundays and [Active]; pantoprazole 40 mg Oral TbEC 1 tab once daily [Active]; Spironolactone Oral [Active]; Toprol XL 50 mg Oral Tb24 1 tab twice a day for Hypertension [Active]; Xarelto 15 mg Oral tab daily [Active]; Zyrtec 10 mg Oral tab 1 tab once daily [Active]; - PMHx: 13:19 Atrial Fib; Cataracts; CHF; colon cancer; Glaucoma; Hypertension; NOSE BLEEDS; iw osteoarthritis of spine; Osteopenia; TIA; Osteoporosis; - Immunization history:: Adult Immunizations up to date. - Social history:: Smoking status: Patient denies any tobacco usage or history of. Screenin:10 Abuse screen: Denies threats or abuse. Denies injuries from another. Nutritional bp screening: No deficits noted. Tuberculosis screening: No symptoms or risk factors identified. Fall Risk None identified. Assessment: 12:10 General: SEE TRIAGE NOTE. bp Vital Signs: 12:12 BP 158 / 73; Pulse 78; Resp 16; Pulse Ox 95% on 2 lpm NC; bp 14:01 BP 159 / 73; Pulse 59; Resp 15; Temp 98.1; Pulse Ox 100% ; bp 20:49 BP 147 / 80; Pulse 60; Resp 16; Temp 98.6; Pulse Ox 100% ; Pain 0/10; bs2 ED Course: 12:10 Patient arrived in ED. am2 12:10 Patient has correct armband on for positive identification. Bed in low position. Call bp light in reach. Side rails up X2. Adult w/ patient. 12:12 Jhon Hernandez, RN is Primary Nurse. bp 12:14 Triage completed. bp 12:15 Bibi Deng FNP-C is PHCP. kb 12:15 Td Yancey MD is Attending Physician. kb 12:18 Derek Banks MD is Private Physician. am2 13:14 Inserted saline lock: 22 gauge in right forearm, using aseptic technique. Blood bp collected. 13:24 Abdomen In Process Unspecified. EDMS 15:20 Urine Microscopic Only Sent. tp1 15:20 Straight cath inserted, using sterile technique, 18 Fr. Specimen obtained. Patient tp1 tolerated well. 16:19 CT Head Brain wo Cont In Process Unspecified. EDMS 16:43 Mauri Banks MD is Hospitalizing Provider. kb 17:00 XRAY Chest (1 view) In Process Unspecified. EDMS 19:32 Magnesium Sent. bs2 19:32 NT PRO-BNP Sent. bs2 19:32 Troponin (emerg Dept Use Only) Sent. bs2 20:08 No provider procedures requiring assistance completed. Patient admitted, IV remains in bs2 place. 20:08 Arm band placed on. bs2 Administered Medications: 13:55 Drug: NS 0.9% 500 ml Route: IV; Rate: bolus; Site: right forearm; bp 20:35 Follow up: IV Status: Completed infusion bs2 13:55 Drug: Zofran (Ondansetron) 4 mg Route: IVP; Site: right forearm; bp 20:35 Follow up: Response: No adverse reaction bs2 15:20 Drug: NS 0.9% 1000 ml Route: IV; Rate: 75 ml/hr; Site: right antecubital; jd3 20:38 Follow up: IV Status: Completed infusion bs2 16:30 Drug: Rocephin (cefTRIAXone) 1 grams Route: IV; Rate: calculated rate; Site: right bp forearm; 20:36 Follow up: IV Status: Completed infusion bs2 Outcome: 16:43 Decision to Hospitalize by Provider. kb 20:48 Admitted to Med/surg accompanied by tech, via stretcher, room 223, with chart. bs2 20:48 Condition: stable 20:48 Discharge instructions given to patient, family, Instructed on the need for admit, Demonstrated understanding of instructions. 20:50 Patient left the ED. bs2 Signatures: Dispatcher [employer] EDMS Bibi Deng, FLAGSETTER-C FLAGSETTER-Ckb Cha Solorzano, Hailey Cummings RN, Jonathon, RN RN jJohn Hernandez RN RN bp Smith, Bridget, RN RN bs2 Linnette Gamez tp1 Corrections: (The following items were deleted from the chart) 14:36 14:01 BP 159 / 73; Pulse 59bpm; Resp 15bpm; Pulse Ox 100%; bp bp
--- NOTE | 2021-08-26 16:45 | EDPHYS ---
Physician Documentation [facility] Name: Irene Bauer Age: 80 yrs Sex: Female : 1940 Arrival Date: 08/26/2021 Time: 12:10 Bed 4 Private MD: Derek Banks C ED Physician Td Yancey HPI: 08/26 12:43 This 80 yrs old Female presents to ER via EMS with complaints of vomiting. kb 12:43 The patient presents to the emergency department with nausea, vomiting. Onset: The kb symptoms/episode began/occurred 3 day(s) ago. Possible causes: unknown. The symptoms are aggravated by nothing. The symptoms are alleviated by nothing. Associated signs and symptoms: Pertinent positives: nausea, vomiting. Severity of symptoms: At their worst the symptoms were moderate in the emergency department the symptoms are unchanged. The patient has not experienced similar symptoms in the past. The patient has not recently seen a physician. Pt reports nausea and vomiting for 3 days. States she is unable to tolerate anything by mouth. Denies fever or abd pain, but reports abd tenderness upon exam. Historical: - Allergies: 13:19 NKA; iw - Home Meds: 13:19 alphagan 5 ml nightly [Active]; Benicar HCT 40-25 mg Oral tab 1 tab once daily iw [Active]; Cymbalta 20 mg Oral cpDR 1 cap [Active]; diltiazem HCl 60 mg Oral cp12 1 cap 2 times per day [Active]; Lasix 40 mg Oral tab 1 tab 2 times per day [Active]; metolazone 2.5 mg Oral tab 2 tabs 2 per week on Sundays and [Active]; pantoprazole 40 mg Oral TbEC 1 tab once daily [Active]; Spironolactone Oral [Active]; Toprol XL 50 mg Oral Tb24 1 tab twice a day for Hypertension [Active]; Xarelto 15 mg Oral tab daily [Active]; Zyrtec 10 mg Oral tab 1 tab once daily [Active]; - PMHx: 13:19 Atrial Fib; Cataracts; CHF; colon cancer; Glaucoma; Hypertension; NOSE BLEEDS; iw osteoarthritis of spine; Osteopenia; TIA; Osteoporosis; - Immunization history:: Adult Immunizations up to date. - Social history:: Smoking status: Patient denies any tobacco usage or history of. ROS: 12:43 Constitutional: Negative for fever, chills, and weight loss. kb 12:43 Abdomen/GI: Positive for nausea and vomiting, Negative for abdominal pain, diarrhea. 12:43 All other systems are negative. Exam: 12:42 Constitutional: This is a well developed, well nourished patient who is awake, alert, kb and in no acute distress. Head/Face: Normocephalic, atraumatic. ENT: Moist Mucous membranes Respiratory: Respirations even and unlabored. No increased work of breathing, no retractions or nasal flaring. Skin: Warm, dry with normal turgor. Normal color. MS/ Extremity: Pulses equal, no cyanosis. Neurovascular intact. Full, normal range of motion. Neuro: Awake and alert, GCS 15, oriented to person, place, time, and situation. Moves all extremities. Normal gait. Psych: Awake, alert, with orientation to person, place and time. Behavior, mood, and affect are within normal limits. 12:42 Abdomen/GI: Inspection: abdomen appears normal, Bowel sounds: normal, in all quadrants, Palpation: soft, in all quadrants, mild abdominal tenderness, in the left lower quadrant. 16:46 ECG was reviewed by the Attending Physician. kb Vital Signs: 12:12 BP 158 / 73; Pulse 78; Resp 16; Pulse Ox 95% on 2 lpm NC; bp 14:01 BP 159 / 73; Pulse 59; Resp 15; Temp 98.1; Pulse Ox 100% ; bp 20:49 BP 147 / 80; Pulse 60; Resp 16; Temp 98.6; Pulse Ox 100% ; Pain 0/10; bs2 MDM: 12:15 Patient medically screened. kb 12:42 Data reviewed: vital signs, nurses notes. Data interpreted: Pulse oximetry: on room air kb is 95 %. Interpretation: normal. 15:01 ED course: Pt tried to stand to transfer to bedside commode and reported dizziness so kb she sat back down. Daughters report this happens sometimes when she gets dehydrated. 15:56 ED course: Pt is now difficult to arouse. Responsive to verbal and physical stimuli kb (hand on shoulder). Daughters state pt was difficult to arouse this morning as well which is why they called to have her brought in. States she gets this way with infection or dehydration. Pt did not disclose any of this information upon arrival. Pt was awake, alert and oriented x4 upon arrival. Pt reported nausea and vomiting only. Denied any other symtoms. 16:41 Counseling: I had a detailed discussion with the patient and/or guardian regarding: the kb historical points, exam findings, and any diagnostic results supporting the discharge/admit diagnosis, lab results, radiology results, the need for further work-up and treatment in the hospital. Physician consultation: Mauri Banks MD was contacted at 16:41, and will see patient in inpatient room, wants NS discontinued after a total of 1L infused. VO for xarelto 15mg daily, metoprolol 50mg BID, pepcid 20mg PO BID, tramadol 50mg PO Q6 PRN, and mild sliding scale received. . 08/26 12:20 Order name: Basic Metabolic Panel; Complete Time: 13:51 kb 08/26 12:20 Order name: CBC with Diff; Complete Time: 13:33 kb 08/26 12:20 Order name: Hepatic Function; Complete Time: 13:51 kb 08/26 12:20 Order name: Lipase; Complete Time: 13:51 kb 08/26 14:01 Order name: Urine Microscopic Only kb 08/26 14:02 Order name: Urine Microscopic Only; Complete Time: 15:54 EDMS 08/26 15:18 Order name: Urine Dipstick-Ancillary; Complete Time: 15:19 EDMS 08/26 15:51 Order name: Urine Culture EDMT 08/26 15:54 Order name: Magnesium kb 08/26 15:54 Order name: NT PRO-BNP kb 08/26 15:54 Order name: PT-INR kb 08/26 15:54 Order name: Troponin (emerg Dept Use Only) kb 08/26 15:54 Order name: Lactate kb 08/26 13:16 Order name: Abdomen ; Complete Time: 13:56 EDMS 08/26 15:53 Order name: CT Head Brain wo Cont; Complete Time: 16:33 kb 08/26 15:54 Order name: XRAY Chest (1 view); Complete Time: 17:22 kb 08/26 15:54 Order name: EKG; Complete Time: 15:55 kb 08/26 15:54 Order name: Procalcitonin kb 08/26 15:54 Order name: Magnesium EDMT 08/26 15:55 Order name: NT PRO-BNP EDMS 08/26 15:55 Order name: Troponin (Emerg Dept Use Only) EDMT 08/26 17:27 Order name: SARS-COV-2 RT PCR EDMT 08/26 20:30 Order name: CREATININE WHOLE BLOOD EDMT 08/26 12:20 Order name: IV Saline Lock; Complete Time: 12:55 kb 08/26 12:20 Order name: Labs collected and sent; Complete Time: 12:55 kb 08/26 14:01 Order name: Urine Dipstick-Ancillary (obtain specimen); Complete Time: 15:20 kb 08/26 15:54 Order name: Cardiac monitoring; Complete Time: 16:29 kb 08/26 15:54 Order name: EKG - Nurse/Tech; Complete Time: 16:29 kb 08/26 15:54 Order name: O2 Per Protocol; Complete Time: 16:28 kb 08/26 15:54 Order name: O2 Sat Monitoring; Complete Time: 16:28 kb EC:46 Rate is 68 beats/min. Rhythm is irregularly irregular. QRS [place] is Normal. QRS interval kb is normal at 82 msec. QT interval is normal at 356 msec. Administered Medications: 13:55 Drug: NS 0.9% 500 ml Route: IV; Rate: bolus; Site: right forearm; bp 20:35 Follow up: IV Status: Completed infusion bs2 13:55 Drug: Zofran (Ondansetron) 4 mg Route: IVP; Site: right forearm; bp 20:35 Follow up: Response: No adverse reaction bs2 15:20 Drug: NS 0.9% 1000 ml Route: IV; Rate: 75 ml/hr; Site: right antecubital; jd3 20:38 Follow up: IV Status: Completed infusion bs2 16:30 Drug: Rocephin (cefTRIAXone) 1 grams Route: IV; Rate: calculated rate; Site: right bp forearm; 20:36 Follow up: IV Status: Completed infusion bs2 Disposition: 08/27 03:46 Co-signature as Attending Physician, Td Yancey MD I agree with the assessment and wan plan of care. Chart complete. Disposition Summary: 08/26/21 16:43 Hospitalization Ordered Hospitalization Status: Inpatient Admission kb Provider: Mauri Banks Location: Telemetry/MedSurg (Inpatient) kb Condition: Stable kb Problem: new kb Symptoms: are unchanged kb Bed/Room Type: Standard kb Room Assignment: 223(08/26/21 19:53) cg Diagnosis - Dehydration kb - UTI/ Urinary tract infection, site not specified kb Forms: - Medication Reconciliation Form kb - SBAR form kb Signatures: Dispatcher [employer] EDMS Bibi Deng, REAGAN-Kaushik KIRK-Td Perez MD MD cha Williams, Irene, RN RN Jillian aCgle, RN RN Ananth Galvez RN RN jd3 Peltier, Brian, RN RN Alexandra Boone RN bs2 Corrections: (The following items were deleted from the chart) 08/26 12:43 12:42 Abdomen/GI: Inspection: abdomen appears normal, Bowel sounds: normal, in all kb quadrants, Palpation: soft, in all quadrants, moderate abdominal tenderness, in the left lower quadrant, kb 13:16 12:20 Abdomen Pelvis W Con+CT.RAD.BRZ ordered. EDMS EDMS 16:32 15:56 ED course: Pt is now difficult to arouse. Daughters state pt was difficult to kb arouse this morning as well which is why they called to have her brought in. States she gets this way with infection or dehydration. Pt did not disclose any of this information upon arrival. Pt was awake, alert and oriented x4 upon arrival. Pt reported nausea and vomiting only. Denied any other symtoms. kb 17:27 15:44 CORONAVIRUS+MR.LAB.BRZ ordered. EDMS EDMS 19:53 16:43 kb cg
[2021-08-26] MEDS ORDERED: CEFTRIAXONE 1000 MG/VIAL ONE ×2 (16:48→22:01)
[2021-08-26] MEDS ORDERED: NA CHLORIDE 0.9% 100 ML ONE (16:48)
--- NOTE | 2021-08-26 17:16 | RAD REPORT ---
EXAM DESCRIPTION: RAD - Chest Single View - 08/26/2021 5:00 pm CLINICAL HISTORY: DYSPNEA COMPARISON: June 11 TECHNIQUE: AP portable chest image was obtained 08/26/2021 5:00 pm . FINDINGS: No consolidation or mass seen. Interstitial markings are prominent as a baseline. Pattern is not substantially different but could mask early interstitial edema or infiltrate. Heart and vasculature are normal. No measurable pleural effusion and no pneumothorax. No acute bony abnormality seen. No acute aortic findings suspected. IMPRESSION: No focal mass or consolidation. Prominent baseline interstitial pattern could mask early edema or infiltrate.
[2021-08-26 18:02] LABS: Protime INR 1.9
[2021-08-26 18:03] LABS: Magnesium 2.4 mg/dL (1.8-2.4); Troponin (Emerg Dept Use Only) 0.09 ng/mL (0.0-0.045)
[2021-08-26] MEDS ORDERED: D50W 25 GM/50 ML SYRINGE IV PRN (21:18)
[2021-08-26] MEDS ORDERED: GLUCAGON 1 MG/VIAL IM PRN (21:18)
[2021-08-26] MEDS ORDERED: TRAMADOL HCL 50 MG TAB PO PRN (21:18)
[2021-08-26] MEDS: INSULIN -REGULAR HUMAN 50 UNIT/0.5 ML ML SQ SCH (21:18)
[2021-08-26] MEDS ORDERED: NA CHLORIDE 0.9% 0 ML ONE (22:02)
[2021-08-26] MEDS: METOPROLOL TAR 50 MG TAB PO SCH (22:19)
--- OUTSIDE RECORDS SUMMARY | 2021-08-26 23:41 | XMS REPORT | Continuity of Care Document ---
:1940 Author Organization [facility] t Address [address] [place] [address] Care Team Providers Name Role Phone Kaushik Banks MD Primary Care Physician Dusty NASSAR Attending Clinician Unavailable Aditi LEYVA, A Attending Clinician Marv LEYVA, W Attending Clinician Jessica Attending Clinician Unavailable Doctor Unassigned, Name Attending Clinician Unavailable Nurse, Fam Attending Clinician Unavailable RADHA Attending Clinician Unavailable RADHA Admitting Clinician Unavailable Payers Payer Name Policy Type Policy Number Effective Date Expiration Date S denae [employer] MEDICARE ADV [id number] 2013 00:00:00 Problems Condition Condition Condition Status Onset Resolution Last Treating Co mments Source Name Details Category Date Date Treatment Clinician Date Cerebrovas Cerebrovas Disease Active U nivers cular cular 05-15 ity of accident accident 00:00: [place] (CVA), (CVA), 00 Medical unspecifie unspecifie Br anch d d mechanism mechanism Stroke Stroke Disease Active [facility] 05-14 ity of 00:00: [place] 00 Medical Branch Recurrent Recurrent Disease Active Uni vers UTI UTI ity of (urinary (urinary [place] tract tract Medical infection) infection) Br anch CHF CHF Disease Active Univers (congestiv (congestiv it y of e heart e heart [place] failure) failure) Medica l Branch Atrial Atrial Disease Active Overview: Univer s fibrillati fibrillati on it y of on on Xarelto [facility] HTN HTN Disease Active Univers (hypertens (hypertens it y of ion), ion), [place] benign benign [facility] HLD HLD Disease Active Univers (hyperlipi (hyperlipi it y of demia) demia) [facility] Osteoarthr Osteoarthr Disease Active U nivers it[place] multiple multiple Medica [place] joints on joints on Bran ch both sides both sides of body of body Osteoarthr Osteoarthr Disease Active [facility] nivers it[place] multiple multiple Medica [place] joints on joints on Bran ch both sides both sides of body of body Allergies, Adverse Reactions, Alerts Allergy Allergy Status Severity Reaction(s) Onset Inactive Treating Comm ents Source Name Type Date Date Clinician NO KNOWN Drug Active Univers ALLERGIE Class ity of S [facility] Social History Social Habit Start Date Stop Date Quantity Comments [facility] Alcohol intake 2019-11-27 2019-11-27 Current [facility] 00:00:00 00:00:00 non-drinker of [facility] alcohol Branch (finding) Tobacco use and 2019-11-27 2019-11-27 [facility] [facility] Smoking Status Start Date Stop Date Source Never smoker [facility] Medications Ordered Filled Start Stop Current Ordering Indication Dosage Frequency Signature Comments Components Source Medication Medication Date Date Medication? Clinician (SIG) Name Name DULOXETINE Yes [id number] 20mg TAKE 1 U nivers 20 mg 5-22 CAPSULE BY ity of capsule 00:00: MOUTH [place] 00 DAILY. Medical KEEP ON Branch FILE. DULOXETINE Yes [id number] 20mg TAKE 1 U nivers 20 mg 5-22 CAPSULE BY ity of capsule 00:00: MOUTH [place] 00 DAILY. Medical KEEP ON Branch FILE. DULOXETINE 2020-0 Yes [id number] 20mg TAKE 1 U nivers 20 mg 5-22 CAPSULE BY ity of capsule 00:00: MOUTH [place] 00 DAILY. Medical KEEP ON Branch FILE. METOPROLOL 2020-0 Yes [id number] TAKE 1 U nivers TARTRATE 3-16 TABLET BY ity of 100 mg 00:00: MOUTH [place] tablet 00 TWICE A Medical DAY Branch METOPROLOL 2020-0 Yes [id number] TAKE 1 U nivers TARTRATE 3-16 TABLET BY ity of 100 mg 00:00: MOUTH [place] tablet 00 TWICE A Medical DAY Branch METOPROLOL 2020-0 Yes [id number] TAKE 1 U nivers TARTRATE 3-16 TABLET BY ity of 100 mg 00:00: MOUTH [place] tablet 00 TWICE A Medical DAY Branch METOPROLOL 2020-0 Yes [id number] TAKE 1 U nivers TARTRATE 3-16 TABLET BY ity of 100 mg 00:00: MOUTH [place] tablet 00 TWICE A Medical DAY Branch METOPROLOL 2020-0 Yes [id number] TAKE 1 U nivers TARTRATE 3-16 TABLET BY ity of 100 mg 00:00: MOUTH [place] tablet 00 TWICE A Medical DAY Branch METOPROLOL 2020-0 Yes [id number] TAKE 1 U nivers TARTRATE 3-16 TABLET BY ity of 100 mg 00:00: MOUTH [place] tablet 00 TWICE A Medical DAY Branch OLMESARTAN 2018-10 Yes [id number] 40mg TAKE 1 Un mega 40 mg 2-27 TABLET BY ity of tablet 00:00: MOUTH [place] 00 DAILY. Medical KEEP ON Branch FILE. OLMESARTAN 2018-10 Yes [id number] 40mg TAKE 1 Un mega 40 mg 2-27 TABLET BY ity of tablet 00:00: MOUTH [place] 00 DAILY. Medical KEEP ON Branch FILE. OLMESARTAN 2018-10 Yes [id number] 40mg TAKE 1 Un mega 40 mg 2-27 TABLET BY ity of tablet 00:00: MOUTH [place] 00 DAILY. Medical KEEP ON Branch FILE. OLMESARTAN 2018-10 Yes [id number] 40mg TAKE 1 Un mega 40 mg 2-27 TABLET BY ity of tablet 00:00: MOUTH [place] 00 DAILY. Medical KEEP ON Branch FILE. OLMESARTAN 2018-10 Yes [id number] 40mg TAKE 1 Un mega 40 mg 2-27 TABLET BY ity of tablet 00:00: MOUTH [place] 00 DAILY. Medical KEEP ON Branch FILE. OLMESARTAN 2018-10 Yes [id number] 40mg TAKE 1 Un mega 40 mg 2-27 TABLET BY ity of tablet 00:00: MOUTH [place] 00 DAILY. Medical KEEP ON Branch FILE. OLMESARTAN 2018-10 Yes [id number] 40mg TAKE 1 Un mega 40 mg 2-27 TABLET BY ity of tablet 00:00: MOUTH [place] 00 DAILY. Medical KEEP ON Branch FILE. OLMESARTAN 2018-10 Yes [id number] 40mg TAKE 1 Un mega 40 mg 2-27 TABLET BY ity of tablet 00:00: MOUTH [place] 00 DAILY. Medical KEEP ON Branch FILE. OLMESARTAN 2018-10 Yes [id number] 40mg TAKE 1 Un mega 40 mg 2-27 TABLET BY ity of tablet 00:00: MOUTH [place] 00 DAILY. Medical KEEP ON Branch FILE. OLMESARTAN 2018-10 Yes [id number] 40mg TAKE 1 Un mega 40 mg 2-27 TABLET BY ity of tablet 00:00: MOUTH [place] 00 DAILY. Medical KEEP ON Branch FILE. OLMESARTAN 2018-10 Yes [id number] 40mg TAKE 1 Un mega 40 mg 2-27 TABLET BY ity of tablet 00:00: MOUTH [place] 00 DAILY. Medical KEEP ON Branch FILE. OLMESARTAN 2018-10 Yes [id number] 40mg TAKE 1 Un mega 40 mg 2-27 TABLET BY ity of tablet 00:00: MOUTH [place] 00 DAILY. Medical KEEP ON Branch FILE. OLMESARTAN 2018-10 Yes [id number] 40mg TAKE 1 Un mega 40 mg 2-27 TABLET BY ity of tablet 00:00: MOUTH [place] 00 DAILY. Medical KEEP ON Branch FILE. rivaroxaban 2018-10 Yes 1358 TAKE 1 Univ ers (XARELTO) 2-20 TABLET BY ity o f 15 mg 00:00: MOUTH [place] tablet 00 EVERY DAY Medical WITH Branch EVENING MEAL.KEEP ON FILE. Indication s: atrial fibrillati on rivaroxaban 2018-10 Yes 1358 TAKE 1 Univ ers (XARELTO) 2-20 TABLET BY ity o f 15 mg 00:00: MOUTH [place] tablet 00 EVERY DAY Medical WITH Branch EVENING MEAL.KEEP ON FILE. Indication s: atrial fibrillati on rivaroxaban 2018-10 Yes 1358 TAKE 1 Univ ers (XARELTO) 2-20 TABLET BY ity o f 15 mg 00:00: MOUTH [place] tablet 00 EVERY DAY Medical WITH Branch EVENING MEAL.KEEP ON FILE. Indication s: atrial fibrillati on rivaroxaban 2018-10 Yes 1358 TAKE 1 Univ ers (XARELTO) 2-20 TABLET BY ity o f 15 mg 00:00: MOUTH [place] tablet 00 EVERY DAY Medical WITH Branch EVENING MEAL.KEEP ON FILE. Indication s: atrial fibrillati on rivaroxaban 2018-10 Yes 1358 TAKE 1 Univ ers (XARELTO) 2-20 TABLET BY ity o f 15 mg 00:00: MOUTH [place] tablet 00 EVERY DAY Medical WITH Branch EVENING MEAL.KEEP ON FILE. Indication s: atrial fibrillati on rivaroxaban 2018-10 Yes 1358 TAKE 1 Univ ers (XARELTO) 2-20 TABLET BY ity o f 15 mg 00:00: MOUTH [place] tablet 00 EVERY DAY Medical WITH Branch EVENING MEAL.KEEP ON FILE. Indication s: atrial fibrillati on rivaroxaban 2018-10 Yes 1358 TAKE 1 Univ ers (XARELTO) 2-20 TABLET BY ity o f 15 mg 00:00: MOUTH [place] tablet 00 EVERY DAY Medical WITH Branch EVENING MEAL.KEEP ON FILE. Indication s: atrial fibrillati on rivaroxaban 2018-10 Yes 1358 TAKE 1 Univ ers (XARELTO) 2-20 TABLET BY ity o f 15 mg 00:00: MOUTH [place] tablet 00 EVERY DAY Medical WITH Branch EVENING MEAL.KEEP ON FILE. Indication s: atrial fibrillati on rivaroxaban 2018-10 Yes 1358 TAKE 1 Univ ers (XARELTO) 2-20 TABLET BY ity o f 15 mg 00:00: MOUTH [place] tablet 00 EVERY DAY Medical WITH Branch EVENING MEAL.KEEP ON FILE. Indication s: atrial fibrillati on rivaroxaban 2018-10 Yes 1358 TAKE 1 Univ ers (XARELTO) 2-20 TABLET BY ity o f 15 mg 00:00: MOUTH [place] tablet 00 EVERY DAY Medical WITH Branch EVENING MEAL.KEEP ON FILE. Indication s: atrial fibrillati on rivaroxaban 2018-10 Yes 1358 TAKE 1 Univ ers (XARELTO) 2-20 TABLET BY ity o f 15 mg 00:00: MOUTH [place] tablet 00 EVERY DAY Medical WITH Branch EVENING MEAL.KEEP ON FILE. Indication s: atrial fibrillati on rivaroxaban 2018-10 Yes 1358 TAKE 1 Univ ers (XARELTO) 2-20 TABLET BY ity o f 15 mg 00:00: MOUTH [place] tablet 00 EVERY DAY Medical WITH Branch EVENING MEAL.KEEP ON FILE. Indication s: atrial fibrillati on rivaroxaban 2018-10 Yes 1358 TAKE 1 Univ ers (XARELTO) 2-20 TABLET BY ity o f 15 mg 00:00: MOUTH [place] tablet 00 EVERY DAY Medical WITH Branch EVENING MEAL.KEEP ON FILE. Indication s: atrial fibrillati on METOLAZONE 2018-10 Yes [id number] 5mg TAKE 1 Un mega 5 mg tablet 2-09 TABLET BY ity of 00:00: MOUTH [place] 00 WEEKLY. Medical TAKE 30 Branch MINUTES BEFORE FUROSEMIDE . METOLAZONE 2018-10 Yes [id number] 5mg TAKE 1 Un mega 5 mg tablet 2-09 TABLET BY ity of 00:00: MOUTH [place] 00 WEEKLY. Medical TAKE 30 Branch MINUTES BEFORE FUROSEMIDE . METOLAZONE 2018-10 Yes [id number] 5mg TAKE 1 Un mega 5 mg tablet 2-09 TABLET BY ity of 00:00: MOUTH [place] 00 WEEKLY. Medical TAKE 30 Branch MINUTES BEFORE FUROSEMIDE . METOLAZONE 2018-10 Yes [id number] 5mg TAKE 1 Un mega 5 mg tablet 2-09 TABLET BY ity of 00:00: MOUTH [place] 00 WEEKLY. Medical TAKE 30 Branch MINUTES BEFORE FUROSEMIDE . METOLAZONE 2018-10 Yes [id number] 5mg TAKE 1 Un mega 5 mg tablet 2-09 TABLET BY ity of 00:00: MOUTH [place] 00 WEEKLY. Medical TAKE 30 Branch MINUTES BEFORE FUROSEMIDE . METOLAZONE 2018-10 Yes [id number] 5mg TAKE 1 Un mega 5 mg tablet 2-09 TABLET BY ity of 00:00: MOUTH [place] 00 WEEKLY. Medical TAKE 30 Branch MINUTES BEFORE FUROSEMIDE . METOLAZONE 2018-10 Yes [id number] 5mg TAKE 1 Un mega 5 mg tablet 2-09 TABLET BY ity of 00:00: MOUTH [place] 00 WEEKLY. Medical TAKE 30 Branch MINUTES BEFORE FUROSEMIDE . METOLAZONE 2018-10 Yes [id number] 5mg TAKE 1 Un mega 5 mg tablet 2-09 TABLET BY ity of 00:00: MOUTH [place] 00 WEEKLY. Medical TAKE 30 Branch MINUTES BEFORE FUROSEMIDE . METOLAZONE 2018-10 Yes [id number] 5mg TAKE 1 Un mega 5 mg tablet 2-09 TABLET BY ity of 00:00: MOUTH [place] 00 WEEKLY. Medical TAKE 30 Branch MINUTES BEFORE FUROSEMIDE . METOLAZONE 2018-10 Yes [id number] 5mg TAKE 1 Un mega 5 mg tablet 2-09 TABLET BY ity of 00:00: MOUTH [place] 00 WEEKLY. Medical TAKE 30 Branch MINUTES BEFORE FUROSEMIDE . METOLAZONE 2018-10 Yes [id number] 5mg TAKE 1 Un mega 5 mg tablet 2-09 TABLET BY ity of 00:00: MOUTH [place] 00 WEEKLY. Medical TAKE 30 Branch MINUTES BEFORE FUROSEMIDE . METOLAZONE 2018-10 Yes [id number] 5mg TAKE 1 Un mega 5 mg tablet 2-09 TABLET BY ity of 00:00: MOUTH [place] 00 WEEKLY. Medical TAKE 30 Branch MINUTES BEFORE FUROSEMIDE . METOLAZONE 2018-10 Yes [id number] 5mg TAKE 1 Un mega 5 mg tablet 2-09 TABLET BY ity of 00:00: MOUTH [place] 00 WEEKLY. Medical TAKE 30 Branch MINUTES BEFORE FUROSEMIDE . DULOXETINE 2018-10 Yes 20mg TAKE 1 Unive rs 20 mg 1-18 CAPSULE BY ity of capsule 00:00: MOUTH [place] 00 DAILY. Medical KEEP ON Branch FILE. DULOXETINE 2018-10 Yes 20mg TAKE 1 Unive rs 20 mg 1-18 CAPSULE BY ity of capsule 00:00: MOUTH [place] 00 DAILY. Medical KEEP ON Branch FILE. DULOXETINE 2018-10 Yes 20mg TAKE 1 Unive rs 20 mg 1-18 CAPSULE BY ity of capsule 00:00: MOUTH [place] 00 DAILY. Medical KEEP ON Branch FILE. DULOXETINE 2018-10 Yes 20mg TAKE 1 Unive rs 20 mg 1-18 CAPSULE BY ity of capsule 00:00: MOUTH [place] 00 DAILY. Medical KEEP ON Branch FILE. DULOXETINE 2018- Yes 20mg TAKE 1 Unive rs 20 mg 1-18 CAPSULE BY ity of capsule 00:00: MOUTH [place] 00 DAILY. Medical KEEP ON Branch FILE. DULOXETINE 2018- Yes 20mg TAKE 1 Unive rs 20 mg 1-18 CAPSULE BY ity of capsule 00:00: MOUTH [place] 00 DAILY. Medical KEEP ON Branch FILE. DULOXETINE 2018- Yes 20mg TAKE 1 Unive rs 20 mg 1-18 CAPSULE BY ity of capsule 00:00: MOUTH [place] 00 DAILY. Medical KEEP ON Branch FILE. DULOXETINE 2018- Yes 20mg TAKE 1 Unive rs 20 mg 1-18 CAPSULE BY ity of capsule 00:00: MOUTH [place] 00 DAILY. Medical KEEP ON Branch FILE. DULOXETINE 2019- Yes 20mg TAKE 1 Unive rs 20 mg 1-18 CAPSULE BY ity of capsule 00:00: MOUTH [place] 00 DAILY. Medical KEEP ON Branch FILE. DULOXETINE 2018- Yes 20mg TAKE 1 Unive rs 20 mg 1-18 CAPSULE BY ity of capsule 00:00: MOUTH [place] 00 DAILY. Medical KEEP ON Branch FILE. DULOXETINE 2018- 2020- No 20mg TAKE 1 Univ ers 20 mg 1-18 05-22 CAPSULE BY ity of capsule 00:00: 00:00 MOUTH [place] 00 :00 DAILY. Medical KEEP ON Branch FILE. brimonidine 2019-0 Yes 1[drp] Place 1 U nivers tartrate 7-11 Drop in ity of (ALPHAGAN P 16:31: each eye 3 [place] OPHTHALMIC) 49 (three) Medic al times Branch daily as needed (eye dryness). brimonidine 2019-0 Yes 1[drp] Place 1 U nivers tartrate 7-11 Drop in ity of (ALPHAGAN P 16:31: each eye 3 [place] OPHTHALMIC) 49 (three) Medic al times Branch daily as needed (eye dryness). brimonidine 2019-0 Yes 1[drp] Place 1 U nivers tartrate 7-11 Drop in ity of (ALPHAGAN P 16:31: each eye 3 [place] OPHTHALMIC) 49 (three) Medic al times Branch daily as needed (eye dryness). brimonidine 2019-0 Yes 1[drp] Place 1 U nivers tartrate 7-11 Drop in ity of (ALPHAGAN P 16:31: each eye 3 [place] OPHTHALMIC) 49 (three) Medic al times Branch daily as needed (eye dryness). brimonidine 2019-0 Yes 1[drp] Place 1 U nivers tartrate 7-11 Drop in ity of (ALPHAGAN P 16:31: each eye 3 [place] OPHTHALMIC) 49 (three) Medic al times Branch daily as needed (eye dryness). brimonidine 2019-0 Yes 1[drp] Place 1 U nivers tartrate 7-11 Drop in ity of (ALPHAGAN P 16:31: each eye 3 [place] OPHTHALMIC) 49 (three) Medic al times Branch daily as needed (eye dryness). brimonidine 2019-0 Yes 1[drp] Place 1 U nivers tartrate 7-11 Drop in ity of (ALPHAGAN P 16:31: each eye 3 [place] OPHTHALMIC) 49 (three) Medic al times Branch daily as needed (eye dryness). brimonidine 2019-0 Yes 1[drp] Place 1 U nivers tartrate 7-11 Drop in ity of (ALPHAGAN P 16:31: each eye 3 [place] OPHTHALMIC) 49 (three) Medic al times Branch daily as needed (eye dryness). brimonidine 2019-0 Yes 1[drp] Place 1 U nivers tartrate 7-11 Drop in ity of (ALPHAGAN P 16:31: each eye 3 [place] OPHTHALMIC) 49 (three) Medic al times Branch daily as needed (eye dryness). brimonidine 2019-0 Yes 1[drp] Place 1 U nivers tartrate 7-11 Drop in ity of (ALPHAGAN P 16:31: each eye 3 [place] OPHTHALMIC) 49 (three) Medic al times Branch daily as needed (eye dryness). brimonidine 2019-0 Yes 1[drp] Place 1 U nivers tartrate 7-11 Drop in ity of (ALPHAGAN P 16:31: each eye 3 [place] OPHTHALMIC) 49 (three) Medic al times Branch daily as needed (eye dryness). brimonidine 2019-0 Yes 1[drp] Place 1 U nivers tartrate 7-11 Drop in ity of (ALPHAGAN P 16:31: each eye 3 [place] OPHTHALMIC) 49 (three) Medic al times Branch daily as needed (eye dryness). brimonidine 2019-0 Yes 1[drp] Place 1 U nivers tartrate 7-11 Drop in ity of (ALPHAGAN P 16:31: each eye 3 [place] OPHTHALMIC) 49 (three) Medic al times Branch daily as needed (eye dryness). brimonidine 2019-0 Yes 1[drp] Place 1 U nivers tartrate 7-11 Drop in ity of (ALPHAGAN P 16:31: each eye 3 [place] OPHTHALMIC) 49 (three) Medic al times Branch daily as needed (eye dryness). brimonidine 2019-0 Yes 1[drp] Place 1 U nivers tartrate 7-11 Drop in ity of (ALPHAGAN P 16:31: each eye 3 [place] OPHTHALMIC) 49 (three) Medic al times Branch daily as needed (eye dryness). brimonidine 2019-0 Yes 1[drp] Place 1 U nivers tartrate 7-11 Drop in ity of (ALPHAGAN P 16:31: each eye 3 [place] OPHTHALMIC) 49 (three) Medic al times Branch daily as needed (eye dryness). CALCIUM 2019-0 Yes Take by Univer s CARBONATE/V 7-11 mouth. ity of ITAMIN D3 16:07: [place] (CALTRATE 35 Medical 600 + D Branch ORAL) CALCIUM 2019-0 Yes Take by Univer s CARBONATE/V 7-11 mouth. ity of ITAMIN D3 16:07: [place] (CALTRATE 35 Medical 600 + D Branch ORAL) CALCIUM 2019-0 Yes Take by Univer s CARBONATE/V 7-11 mouth. ity of ITAMIN D3 16:07: [place] (CALTRATE 35 Medical 600 + D Branch ORAL) CALCIUM 2019-0 Yes Take by Univer s CARBONATE/V 7-11 mouth. ity of ITAMIN D3 16:07: [place] (CALTRATE 35 Medical 600 + D Branch ORAL) CALCIUM 2019-0 Yes Take by Univer s CARBONATE/V 7-11 mouth. ity of ITAMIN D3 16:07: [place] (CALTRATE 35 Medical 600 + D Branch ORAL) CALCIUM 2019-0 Yes Take by Univer s CARBONATE/V 7-11 mouth. ity of ITAMIN D3 16:07: [place] (CALTRATE 35 Medical 600 + D Branch ORAL) CALCIUM 2019-0 Yes Take by Univer s CARBONATE/V 7-11 mouth. ity of ITAMIN D3 16:07: [place] (CALTRATE 35 Medical 600 + D Branch ORAL) CALCIUM 2019-0 Yes Take by Univer s CARBONATE/V 7-11 mouth. ity of ITAMIN D3 16:07: [place] (CALTRATE 35 Medical 600 + D Branch ORAL) CALCIUM 2019-0 Yes Take by Univer s CARBONATE/V 7-11 mouth. ity of ITAMIN D3 16:07: [place] (CALTRATE 35 Medical 600 + D Branch ORAL) CALCIUM 2019-0 Yes Take by Univer s CARBONATE/V 7-11 mouth. ity of ITAMIN D3 16:07: [place] (CALTRATE 35 Medical 600 + D Branch ORAL) CALCIUM 2019-0 Yes Take by Univer s CARBONATE/V 7-11 mouth. ity of ITAMIN D3 16:07: [place] (CALTRATE 35 Medical 600 + D Branch ORAL) CALCIUM 2019-0 Yes Take by Univer s CARBONATE/V 7-11 mouth. ity of ITAMIN D3 16:07: [place] (CALTRATE 35 Medical 600 + D Branch ORAL) CALCIUM 2019-0 Yes Take by Univer s CARBONATE/V 7-11 mouth. ity of ITAMIN D3 16:07: [place] (CALTRATE 35 Medical 600 + D Branch ORAL) CALCIUM 2019-0 Yes Take by Univer s CARBONATE/V 7-11 mouth. ity of ITAMIN D3 16:07: [place] (CALTRATE 35 Medical 600 + D Branch ORAL) CALCIUM 2019-0 Yes Take by Univer s CARBONATE/V 7-11 mouth. ity of ITAMIN D3 16:07: [place] (CALTRATE 35 Medical 600 + D Branch ORAL) CALCIUM 2019-0 Yes Take by Univer s CARBONATE/V 7-11 mouth. ity of ITAMIN D3 16:07: [place] (CALTRATE 35 Medical 600 + D Branch ORAL) vit 2019-0 Yes [id number] 1{capsu Take 1 U nivers C,E-Zn-mercedes 7-11 [id number] le} capsule by ity of r-lutein-ze 00:00: mouth 2 [place] 00 (two) Medical (PRESERVISI times Branch ON AREDS-2) daily. 250-200-40- 1 mg-unit-mg- mg Cap vit 2019-0 Yes [id number] 1{capsu Take 1 U nivers C,E-Zn-mercedes 7-11 [id number] le} capsule by ity of r-lutein-ze 00:00: mouth 2 [place] 00 (two) Medical (PRESERVISI times Branch ON AREDS-2) daily. 250-200-40- 1 mg-unit-mg- mg Cap vit 2019-0 Yes [id number] 1{capsu Take 1 U nivers C,E-Zn-mercedes 7-11 [id number] le} capsule by ity of r-lutein-ze 00:00: mouth 2 [place] 00 (two) Medical (PRESERVISI times Branch ON AREDS-2) daily. 250-200-40- 1 mg-unit-mg- mg Cap vit 2019-0 Yes [id number] 1{capsu Take 1 U nivers C,E-Zn-mercedes 7-11 [id number] le} capsule by ity of r-lutein-ze 00:00: mouth 2 [place] 00 (two) Medical (PRESERVISI times Branch ON AREDS-2) daily. 250-200-40- 1 mg-unit-mg- mg Cap vit 2019-0 Yes [id number] 1{capsu Take 1 U nivers C,E-Zn-mercedes 7-11 [id number] le} capsule by ity of r-lutein-ze 00:00: mouth 2 [place] 00 (two) Medical (PRESERVISI times Branch ON AREDS-2) daily. 250-200-40- 1 mg-unit-mg- mg Cap vit 2019-0 Yes [id number] 1{capsu Take 1 U nivers C,E-Zn-mercedes 7-11 [id number] le} capsule by ity of r-lutein-ze 00:00: mouth 2 [place] 00 (two) Medical (PRESERVISI times Branch ON AREDS-2) daily. 250-200-40- 1 mg-unit-mg- mg Cap vit 2019-0 Yes [id number] 1{capsu Take 1 U nivers C,E-Zn-mercedes 7-11 [id number] le} capsule by ity of r-lutein-ze 00:00: mouth 2 [place] 00 (two) Medical (PRESERVISI times Branch ON AREDS-2) daily. 250-200-40- 1 mg-unit-mg- mg Cap vit 2019-0 Yes [id number] 1{capsu Take 1 U nivers C,E-Zn-mercedes 7-11 [id number] le} capsule by ity of r-lutein-ze 00:00: mouth 2 [place] 00 (two) Medical (PRESERVISI times Branch ON AREDS-2) daily. 250-200-40- 1 mg-unit-mg- mg Cap vit 2019-0 Yes [id number] 1{capsu Take 1 U nivers C,E-Zn-mercedes 7-11 [id number] le} capsule by ity of r-lutein-ze 00:00: mouth 2 [place] 00 (two) Medical (PRESERVISI times Branch ON AREDS-2) daily. 250-200-40- 1 mg-unit-mg- mg Cap vit 2019-0 Yes [id number] 1{capsu Take 1 U nivers C,E-Zn-mercedes 7-11 [id number] le} capsule by ity of r-lutein-ze 00:00: mouth 2 [place] 00 (two) Medical (PRESERVISI times Branch ON AREDS-2) daily. 250-200-40- 1 mg-unit-mg- mg Cap vit 2018-0 Yes [id number] 1{capsu Take 1 U nivers C,E-Zn-mercedes 7-11 [id number] le} capsule by ity of r-lutein-ze 00:00: mouth 2 [place] 00 (two) Medical (PRESERVISI times Branch ON AREDS-2) daily. 250-200-40- 1 mg-unit-mg- mg Cap vit 2018- Yes [id number] 1{capsu Take 1 U nivers C,E-Zn-mercedes 7-11 [id number] le} capsule by ity of r-lutein-ze 00:00: mouth 2 [place] 00 (two) Medical (PRESERVISI times Branch ON AREDS-2) daily. 250-200-40- 1 mg-unit-mg- mg Cap vit Yes [id number] 1{capsu Take 1 U nivers C,E-Zn-mercedes 7-11 [id number] le} capsule by ity of r-lutein-ze 00:00: mouth 2 [place] 00 (two) Medical (PRESERVISI times Branch ON AREDS-2) daily. 250-200-40- 1 mg-unit-mg- mg Cap vit 2018- Yes [id number] 1{capsu Take 1 U nivers C,E-Zn-mercedes 7-11 [id number] le} capsule by ity of r-lutein-ze 00:00: mouth 2 [place] 00 (two) Medical (PRESERVISI times Branch ON AREDS-2) daily. 250-200-40- 1 mg-unit-mg- mg Cap vit 2018- Yes [id number] 1{capsu Take 1 U nivers C,E-Zn-mercedes 7-11 [id number] le} capsule by ity of r-lutein-ze 00:00: mouth 2 [place] 00 (two) Medical (PRESERVISI times Branch ON AREDS-2) daily. 250-200-40- 1 mg-unit-mg- mg Cap vit 2018-0 Yes [id number] 1{capsu Take 1 U nivers C,E-Zn-mercedes 04-23 [id number] le} capsule by ity of r-lutein-ze 00:00: mouth 2 [place] 00 (two) Medical (PRESERVISI times Branch ON AREDS-2) daily. 250-200-40- 1 mg-unit-mg- mg Cap furosemide Yes [id number] 80mg Take 2 Un mega (LASIX) 40 2-20 tablets by ity of mg tablet 00:00: mouth [place] 00 every Medical morning Branch and evening. Keep on file. atorvastati Yes [id number] 40mg Take 1 Univers n 40 mg 2-20 tablet by ity of tablet 00:00: mouth at [place] 00 bedtime. Medical Keep on Branch file. furosemide Yes [id number] 80mg Take 2 Un mega (LASIX) 40 2-20 tablets by ity of mg tablet 00:00: mouth [place] 00 every Medical morning Branch and evening. Keep on file. atorvastati Yes [id number] 40mg Take 1 Univers n 40 mg 2-20 tablet by ity of tablet 00:00: mouth at [place] 00 bedtime. Medical Keep on Branch file. furosemide Yes [id number] 80mg Take 2 Un mega (LASIX) 40 2-20 tablets by ity of mg tablet 00:00: mouth [place] 00 every Medical morning Branch and evening. Keep on file. atorvastati Yes [id number] 40mg Take 1 Univers n 40 mg 2-20 tablet by ity of tablet 00:00: mouth at [place] 00 bedtime. Medical Keep on Branch file. furosemide Yes [id number] 80mg Take 2 Un mega (LASIX) 40 2-20 tablets by ity of mg tablet 00:00: mouth [place] 00 every Medical morning Branch and evening. Keep on file. atorvastati Yes [id number] 40mg Take 1 Univers n 40 mg 2-20 tablet by ity of tablet 00:00: mouth at [place] 00 bedtime. Medical Keep on Branch file. furosemide Yes [id number] 80mg Take 2 Un mega (LASIX) 40 2-20 tablets by ity of mg tablet 00:00: mouth [place] 00 every Medical morning Branch and evening. Keep on file. atorvastati Yes [id number] 40mg Take 1 Univers n 40 mg 2-20 tablet by ity of tablet 00:00: mouth at [place] 00 bedtime. Medical Keep on Branch file. furosemide Yes [id number] 80mg Take 2 Un mega (LASIX) 40 2-20 tablets by ity of mg tablet 00:00: mouth [place] 00 every Medical morning Branch and evening. Keep on file. furosemide Yes [id number] 80mg Take 2 Un mega (LASIX) 40 2-20 tablets by ity of mg tablet 00:00: mouth [place] 00 every Medical morning Branch and evening. Keep on file. atorvastati Yes [id number] 40mg Take 1 Univers n 40 mg 2-20 tablet by ity of tablet 00:00: mouth at [place] 00 bedtime. Medical Keep on Branch file. atorvastati Yes [id number] 40mg Take 1 Univers n 40 mg 2-20 tablet by ity of tablet 00:00: mouth at [place] 00 bedtime. Medical Keep on Branch file. metOLazone 0 Yes [id number] 5mg Take 1 Un mega 5 mg tablet 2-20 tablet by ity of 00:00: mouth [place] 00 weekly. Medical Take 30 Branch minutes before furosemide . furosemide 0 Yes [id number] 80mg Take 2 [facility] (LASIX) 40 2-20 tablets by ity of mg tablet 00:00: mouth [place] 00 every Medical morning Branch and evening. Keep on file. atorvastati Yes [id number] 40mg Take 1 [facility] 40 mg 2-20 tablet by ity of tablet 00:00: mouth at [place] 00 bedtime. Medical Keep on Branch file. furosemide 2018-0 Yes [id number] 80mg Take 2 [facility] (LASIX) 40 2-20 tablets by ity of mg tablet 00:00: mouth [place] 00 every Medical morning Branch and evening. Keep on file. atorvastati Yes [id number] 40mg Take 1 [facility] 40 mg 2-20 tablet by ity of tablet 00:00: mouth at [place] 00 bedtime. Medical Keep on Branch file. furosemide 2019-0 Yes [id number] 80mg Take 2 [facility] (LASIX) 40 2-20 tablets by ity of mg tablet 00:00: mouth [place] 00 every Medical morning Branch and evening. Keep on file. atorvastati 2019-0 Yes [id number] 40mg Take 1 [facility] 40 mg 2-20 tablet by ity of tablet 00:00: mouth at [place] 00 bedtime. Medical Keep on Branch file. furosemide 2019-0 Yes [id number] 80mg Take 2 [facility] (LASIX) 40 2-20 tablets by ity of mg tablet 00:00: mouth [place] 00 every Medical morning Branch and evening. Keep on file. atorvastati Yes [id number] 40mg Take 1 [facility] 40 mg 2-20 tablet by ity of tablet 00:00: mouth at [place] 00 bedtime. Medical Keep on Branch file. furosemide 2018-0 Yes [id number] 80mg Take 2 [facility] (LASIX) 40 2-20 tablets by ity of mg tablet 00:00: mouth [place] 00 every Medical morning Branch and evening. Keep on file. atorvastati Yes [id number] 40mg Take 1 [facility] 40 mg 2-20 tablet by ity of tablet 00:00: mouth at [place] 00 bedtime. Medical Keep on Branch file. furosemide 2018-0 Yes [id number] 80mg Take 2 [facility] (LASIX) 40 2-20 tablets by ity of mg tablet 00:00: mouth [place] 00 every Medical morning Branch and evening. Keep on file. atorvastati 2018-0 Yes [id number] 40mg Take 1 [facility] 40 mg 2-20 tablet by ity of tablet 00:00: mouth at [place] 00 bedtime. Medical Keep on Branch file. furosemide 2018-0 Yes [id number] 80mg Take 2 [facility] (LASIX) 40 2-20 tablets by ity of mg tablet 00:00: mouth [place] 00 every Medical morning Branch and evening. Keep on file. atorvastati 2018-0 Yes [id number] 40mg Take 1 [facility] 40 mg 2-20 tablet by ity of tablet 00:00: mouth at [place] 00 bedtime. Medical Keep on Branch file. metOLazone 2018-0 Yes [id number] 5mg Take 1 [facility] 5 mg tablet 2-20 tablet by ity of 00:00: mouth [place] 00 weekly. Medical Take 30 Branch minutes before furosemide . furosemide Yes [id number] 80mg Take 2 [facility] (LASIX) 40 2-20 tablets by ity of mg tablet 00:00: mouth [place] 00 every Medical morning Branch and evening. Keep on file. atorvastati Yes [id number] 40mg Take 1 [facility] 40 mg 2-20 tablet by ity of tablet 00:00: mouth at [place] 00 bedtime. Medical Keep on Branch file. metOLazone Yes [id number] 5mg Take 1 [facility] 5 mg tablet 2-20 tablet by ity of 00:00: mouth [place] 00 weekly. Medical Take 30 Branch minutes before furosemide . furosemide Yes [id number] 80mg Take 2 [facility] (LASIX) 40 2-20 tablets by ity of mg tablet 00:00: mouth [place] 00 every Medical morning Branch and evening. Keep on file. atorvastati Yes [id number] 40mg Take 1 [facility] 40 mg 2-20 tablet by ity of tablet 00:00: mouth at [place] 00 bedtime. Medical Keep on Branch file. metoprolol 2017-10 Yes [id number] 100mg Take 1 [facility] tartrate 2-27 tablet by ity of 100 mg 00:00: mouth 2 [place] tablet 00 (two) Medical times Branch daily. metoprolol 2017-10 Yes [id number] 100mg Take 1 [facility] tartrate 2-27 tablet by ity of 100 mg 00:00: mouth 2 [place] tablet 00 (two) Medical times Branch daily. metoprolol 2017-10 Yes [id number] 100mg Take 1 [facility] tartrate 2-27 tablet by ity of 100 mg 00:00: mouth 2 [place] tablet 00 (two) Medical times Branch daily. metoprolol 2017-10 Yes [id number] 100mg Take 1 [facility] tartrate 2-27 tablet by ity of 100 mg 00:00: mouth 2 [place] tablet 00 (two) Medical times Branch daily. metoprolol 2017-10 Yes [id number] 100mg Take 1 [facility] tartrate 2-27 tablet by ity of 100 mg 00:00: mouth 2 [place] tablet 00 (two) Medical times Branch daily. metoprolol 2017-10 Yes [id number] 100mg Take 1 [facility] tartrate 2-27 tablet by ity of 100 mg 00:00: mouth 2 [place] tablet 00 (two) Medical times Branch daily. metoprolol 2017-10 Yes [id number] 100mg Take 1 [facility] tartrate 2-27 tablet by ity of 100 mg 00:00: mouth 2 [place] tablet 00 (two) Medical times Branch daily. metoprolol 2017-10 Yes [id number] 100mg Take 1 [facility] tartrate 2-27 tablet by ity of 100 mg 00:00: mouth 2 [place] tablet 00 (two) Medical times Branch daily. metoprolol 2017-10 Yes [id number] 100mg Take 1 [facility] tartrate 2-27 tablet by ity of 100 mg 00:00: mouth 2 [place] tablet 00 (two) Medical times Branch daily. metoprolol 2017-10 Yes [id number] 100mg Take 1 [facility] tartrate 2-27 tablet by ity of 100 mg 00:00: mouth 2 [place] tablet 00 (two) Medical times Branch daily. metoprolol 2017-10 2020- No [id number] 100mg Take 1 [facility] tartrate 2-27 03-16 tablet by ity o f 100 mg 00:00: 00:00 mouth 2 [place] tablet 00 :00 (two) Medical times Branch daily. KCL 10 mEq 2017-10 Yes 10meq Take 1 [facility] ers tablet 2-10 tablet by ity of 00:00: mouth 2 [place] 00 (two) Medical times Branch daily. KCL 10 mEq 2017-10 Yes 10meq Take 1 [facility] ers tablet 2-10 tablet by ity of 00:00: mouth 2 [place] 00 (two) Medical times Branch daily. KCL 10 mEq 2017-10 Yes 10meq Take 1 [facility] ers tablet 2-10 tablet by ity of 00:00: mouth 2 [place] 00 (two) Medical times Branch daily. rivaroxaban 2017-10 Yes TAKE 1 Univ ers (XARELTO) 2-10 TABLET BY ity o f 15 mg 00:00: MOUTH [place] tablet 00 EVERY DAY Medical WITH Branch EVENING MEAL.Keep on file. olmesartan 2017-10 Yes 40mg Take 1 [facility] (BENICAR) 2-10 tablet by ity o f 40 mg 00:00: mouth [place] tablet 00 daily. Medical Keep on Branch file. KCL 10 mEq 2017-10 Yes 10meq Take 1 [facility] ers tablet 2-10 tablet by ity of 00:00: mouth 2 [place] 00 (two) Medical times Branch daily. KCL 10 mEq 2017-10 Yes 10meq Take 1 [facility] ers tablet 2-10 tablet by ity of 00:00: mouth (two) Medical times Branch daily. DULoxetine 2017-10 Yes 20mg Take 1 [facility] 20 mg 2-10 capsule by ity of capsule 00:00: mouth 00 daily. Medical Keep on Branch file. KCL 10 mEq 2017-10 Yes 10meq Take 1 [facility] ers tablet 2-10 tablet by ity of 00:00: mouth (two) Medical times Branch daily. KCL 10 mEq 2017-10 Yes 10meq Take 1 [facility] ers tablet 2-10 tablet by ity of 00:00: mouth (two) Medical times Branch daily. KCL 10 mEq 2017-10 Yes 10meq Take 1 [facility] ers tablet 2-10 tablet by ity of 00:00: mouth (two) Medical times Branch daily. KCL 10 mEq 2017-10 Yes 10meq Take 1 [facility] ers tablet 2-10 tablet by ity of 00:00: mouth (two) Medical times Branch daily. KCL 10 mEq 2017-10 Yes 10meq Take 1 [facility] ers tablet 2-10 tablet by ity of 00:00: mouth (two) Medical times Branch daily. KCL 10 mEq 2017-10 Yes 10meq Take 1 [facility] ers tablet 2-10 tablet by ity of 00:00: mouth (two) Medical times Branch daily. KCL 10 mEq 2017-10 Yes 10meq Take 1 [facility] ers tablet 2-10 tablet by ity of 00:00: mouth (two) Medical times Branch daily. KCL 10 mEq 2017-10 Yes 10meq Take 1 [facility] ers tablet 2-10 tablet by ity of 00:00: mouth (two) Medical times Branch daily. rivaroxaban 2017-10 Yes TAKE 1 [facility] ers (XARELTO) 2-10 TABLET BY ity o f 15 mg 00:00: MOUTH [place] tablet 00 EVERY DAY Medical WITH Branch EVENING MEAL.Keep on file. olmesartan 2017-10 Yes 40mg Take 1 [facility] (BENICAR) 2-10 tablet by ity o f 40 mg 00:00: mouth [place] tablet 00 daily. Medical Keep on Branch file. KCL 10 mEq 2017-10 Yes 10meq Take 1 [facility] ers tablet 2-10 tablet by ity of 00:00: mouth 2 [place] 00 (two) Medical times Branch daily. DULoxetine 2017-10 Yes 20mg Take 1 [facility] 20 mg 2-10 capsule by ity of capsule 00:00: mouth [place] 00 daily. Medical Keep on Branch file. rivaroxaban 2017-10 Yes TAKE 1 [facility] ers (XARELTO) 2-10 TABLET BY ity o f 15 mg 00:00: MOUTH [place] tablet 00 EVERY DAY Medical WITH Branch EVENING MEAL.Keep on file. olmesartan 2017-10 Yes 40mg Take 1 [facility] (BENICAR) 2-10 tablet by ity o f 40 mg 00:00: mouth [place] tablet 00 daily. Medical Keep on Branch file. KCL 10 mEq 2017-10 Yes 10meq Take 1 [facility] ers tablet 2-10 tablet by ity of 00:00: mouth 2 [place] 00 (two) Medical times Branch daily. DULoxetine 2017-10 Yes 20mg Take 1 [facility] 20 mg 2-10 capsule by ity of capsule 00:00: mouth [place] 00 daily. Medical Keep on Branch file. KCL 10 mEq 2017-10 Yes 10meq Take 1 [facility] ers tablet 2-10 tablet by ity of 00:00: mouth 2 [place] 00 (two) Medical times Branch daily. digoxin Yes 250ug QD Take [facility] - 0.25 MG 14:51: mouth Medical tablet 07 daily. [place] olmesartan- Yes 1{tbl} QD Take [address] [facility] [address] hydrochloro 8-04 tablet by [place] [facility] - thiazide 14:51: mouth Medical (BENICAR 07 daily. [place] HCT) 40-25 mg per tablet rivaroxaban Yes 20mg QD Take [address] [facility] (XARELTO) 8-04 by [facility] - 20 mg Tab 14:51: daily. Medica l tablet 07 [place] Alphagan P Alphagan P Yes Carlos not [...] TWICE A l DAY [facility] Immunizations Ordered Filled Immunization Date Status Comments [facility] e Immunization Name Name PPD (TB) 2019-05-12 Completed [facility] 00:[facility]:[address] [facility] Pneumococcal 2019-05-12 Completed [place] o f Polysaccharide, 00:00:00 [facility] ical PPSV23 (PNEUMOVAX) Branch PPD (TB) 2019-05-12 Completed [facility] 00:00:[address] [facility] Pneumococcal 2019-05-12 Completed [place] o f Polysaccharide, 00:00:00 [facility] ical PPSV23 (PNEUMOVAX) Branch PPD (TB) 2019-05-12 Completed [facility] 00:00:[address] [facility] Pneumococcal 2019-05-12 Completed [place] o f Polysaccharide, 00:00:00 [facility] ical PPSV23 (PNEUMOVAX) Branch PPD (TB) 2019-05-12 Completed [facility] 00:00:[address] [facility] Pneumococcal 2019-05-12 Completed [place] o f Polysaccharide, 00:00:00 [facility] ical PPSV23 (PNEUMOVAX) Branch PPD (TB) 2019-05-12 Completed University of 00:00:[address] [facility] Pneumococcal 2019-05-12 Completed University o f Polysaccharide, 00:00:00 [place] [facility] ical PPSV23 (PNEUMOVAX) Branch PPD (TB) 2019-05-12 Completed University of 00:00:[address] [facility] Pneumococcal 2019-05-12 Completed University o f Polysaccharide, 00:00:00 [place] [facility] ical PPSV23 (PNEUMOVAX) Branch PPD (TB) 2019-05-12 Completed University of 00:00:[address] [facility] Pneumococcal 2019-05-12 Completed University o f Polysaccharide, 00:00:00 [place] [facility] ical PPSV23 (PNEUMOVAX) Branch PPD (TB) 2019-05-12 Completed University of 00:00:[address] [facility] Pneumococcal 2019-05-12 Completed University o f Polysaccharide, 00:00:00 [place] [facility] ical PPSV23 (PNEUMOVAX) Branch PPD (TB) 2019-05-12 Completed University of 00:00:[address] [facility] Pneumococcal 2019-05-12 Completed University o f Polysaccharide, 00:00:00 [place] [facility] ical PPSV23 (PNEUMOVAX) Branch PPD (TB) 2019-05-12 Completed University of 00:00:[address] [facility] Pneumococcal 2019-05-12 Completed University o f Polysaccharide, 00:00:00 [place] [facility] ical PPSV23 (PNEUMOVAX) Branch PPD (TB) 2019-05-12 Completed University of 00:00:[address] [facility] Pneumococcal 2019-05-12 Completed University o f Polysaccharide, 00:00:00 [place] [facility] ical PPSV23 (PNEUMOVAX) Branch PPD (TB) 2019-05-12 Completed University of 00:00:[address] [facility] Pneumococcal 2019-05-12 Completed University o f Polysaccharide, 00:00:00 [place] [facility] ical PPSV23 (PNEUMOVAX) Branch PPD (TB) 2019-05-12 Completed University of 00:00:[address] [facility] Pneumococcal 2019-05-12 Completed University o f Polysaccharide, 00:00:00 [place] [facility] ical PPSV23 (PNEUMOVAX) Branch PPD (TB) 2019-05-12 Completed University of 00:00:[address] [facility] Pneumococcal 2019-05-12 Completed University o f Polysaccharide, 00:00:00 [place] [facility] ical PPSV23 (PNEUMOVAX) Branch PPD (TB) 2019-05-12 Completed University of 00:00:[address] [facility] Pneumococcal 2019-05-12 Completed University o f Polysaccharide, 00:00:00 [facility] ica PPSV23 (PNEUMOVAX) [place] PPD (TB) 2019-05-12 Completed University of 00:00:[address] [facility] Pneumococcal 2019-05-12 Completed University o f Polysaccharide, 00:00:00 [facility] ical PPSV23 (PNEUMOVAX) [place] Influenza Virus 2018-07-14 Completed Universit y of Vaccine 00:00:[address] [facility] Influenza Virus 2018-07-14 Completed Universit y of Vaccine 00:00:[address] [facility] Influenza Virus 2018-07-14 Completed Universit y of Vaccine 00:00:[address] [facility] Influenza Virus 2018-07-14 Completed Universit y of Vaccine 00:00:[address] [facility] Influenza Virus 2018-07-14 Completed Universit y of Vaccine 00:00:[address] [facility] Influenza Virus 2018-07-14 Completed Universit y of Vaccine 00:00:[address] [facility] Influenza Virus 2018-07-14 Completed Universit y of Vaccine 00:00:[address] [facility] Influenza Virus 2018-07-14 Completed Universit y of Vaccine 00:00:[address] [facility] Influenza Virus 2018-07-14 Completed Universit y of Vaccine 00:00:[address] [facility] Influenza Virus 2018-07-14 Completed Universit y of Vaccine 00:00:[address] [facility] Influenza Virus 2018-07-14 Completed Universit y of Vaccine 00:00:[address] [facility] Influenza Virus 2018-07-14 Completed Universit y of Vaccine 00:00:[address] [facility] Influenza Virus 2018-07-14 Completed Universit y of Vaccine 00:00:[address] [facility] Influenza Virus 2018-07-14 Completed Universit y of Vaccine 00:00:[address] [facility] Influenza Virus 2018-07-14 Completed Universit y of Vaccine 00:00:[address] [facility] Influenza Virus 2018-07-14 Completed Universit y of Vaccine 00:00:[address] [facility] Influenza High Dose 2017-07-27 Completed Unive rsity of 00:00:[address] [facility] Influenza High Dose 2017-07-27 Completed Unive rsity of 00:00:[address] [facility] Influenza High Dose 2017-07-27 Completed Unive rsity of 00:00:[address] [facility] Influenza High Dose 2017-07-27 Completed Unive rsity of 00:00:[address] [facility] Influenza High Dose 2017-07-27 Completed Unive rsity of 00:00:[address] [facility] Influenza High Dose 2017-07-27 Completed Unive rsity of 00:00:[address] [facility] Influenza High Dose 2017-07-27 Completed Unive rsity of 00:00:[address] [facility] Influenza High Dose 2017-07-27 Completed Unive rsity of 00:00:[address] [facility] Influenza High Dose 2017-07-27 Completed Unive rsity of 00:00:[address] [facility] Influenza High Dose 2017-07-27 Completed Unive rsity of 00:00:[address] [facility] Influenza High Dose 2017-07-27 Completed Unive rsity of 00:00:[address] [facility] Influenza High Dose 2017-07-27 Completed Unive rsity of 00:00:[address] [facility] Influenza High Dose 2017-07-27 Completed Unive rsity of 00:00:[address] [facility] Influenza High Dose 2017-07-27 Completed Unive rsity of 00:00:[address] [facility] Influenza High Dose 2017-07-27 Completed Unive rsity of 00:00:[address] [facility] Influenza High Dose 2017-07-27 Completed Unive rsity of 00:00:[address] [facility] DTAP 2016-09-11 Completed University of 00:00:[address] [facility] Pneumococcal 13 2016-09-11 Completed Universit y of Conjugate, PCV13 00:00:00 [facility] [place] [facility] dical (Prevnar 13) Branch DTAP 2016-09-11 Completed University of 00:00:[address] [facility] Pneumococcal 13 2016-09-11 Completed Universit y of Conjugate, PCV13 00:00:00 [facility] [place] [facility] dical (Prevnar 13) Branch DTAP 2016-09-11 Completed University of 00:00:[address] [facility] Pneumococcal 13 2016-09-11 Completed Universit y of Conjugate, PCV13 00:00:00 [facility] [place] [facility] dical (Prevnar 13) Branch DTAP 2016-09-11 Completed University of 00:00:[address] [facility] Pneumococcal 13 2016-09-11 Completed Universit y of Conjugate, PCV13 00:00:00 [facility] [place] [facility] dical (Prevnar 13) Branch DTAP 2016-09-11 Completed University of 00:00:[address] [facility] Pneumococcal 13 2016-09-11 Completed Universit y of Conjugate, PCV13 00:00:00 [facility] [place] [facility] dical (Prevnar 13) Branch DTAP 2016-09-11 Completed University of 00:00:[address] [facility] Pneumococcal 13 2016-09-11 Completed Universit y of Conjugate, PCV13 00:00:00 [facility] [place] [facility] dical (Prevnar 13) Branch DTAP 2016-09-11 Completed University of 00:00:[address] [facility] Pneumococcal 13 2016-09-11 Completed Universit y of Conjugate, PCV13 00:00:00 [facility] [place] [facility] dical (Prevnar 13) Branch DTAP 2016-09-11 Completed University of 00:00:[address] [facility] Pneumococcal 13 2016-09-11 Completed Universit y of Conjugate, PCV13 00:00:00 [facility] [place] [facility] dical (Prevnar 13) Branch DTAP 2016-09-11 Completed University of 00:00:[address] [facility] Pneumococcal 13 2016-09-11 Completed Universit y of Conjugate, PCV13 00:00:00 [facility] [place] [facility] dical (Prevnar 13) Branch AP 2016-09-11 Completed University of 00:00:[address] [facility] Pneumococcal 13 2016-09-11 Completed Universit y of Conjugate, PCV13 00:00:00 [facility] [place] [facility] dical (Prevnar 13) Branch [facility] 2016-09-11 Completed University of 00:00:[address] [facility] Pneumococcal 13 2016-09-11 Completed Universit y of Conjugate, PCV13 00:00:00 [facility] [place] [facility] dical (Prevnar 13) Branch AP 2016-09-11 Completed University of 00:00:[address] [facility] Pneumococcal 13 2016-09-11 Completed Universit y of Conjugate, PCV13 00:00:00 [facility] [place] [facility] dical (Prevnar 13) Branch AP 2016-09-11 Completed University of 00:00:[address] [facility] Pneumococcal 13 2016-09-11 Completed Universit y of Conjugate, PCV13 00:00:00 [facility] [place] [facility] dical (Prevnar 13) Branch AP 2016-09-11 Completed University of 00:00:[address] [facility] Pneumococcal 13 2016-09-11 Completed Universit y of Conjugate, PCV13 00:00:00 [facility] [place] [facility] dical (Prevnar 13) Branch AP 2016-09-11 Completed University of 00:00:[address] [facility] Pneumococcal 13 2016-09-11 Completed Universit y of Conjugate, PCV13 00:00:00 [facility] [place] [facility] dical (Prevnar 13) Branch DTAP 2016-09-11 Completed University of 00:00:00 [facility] Branch Pneumococcal 13 2016-09-11 Completed Universit y of Conjugate, PCV13 00:00:00 [facility] [place] [facility] dical (Prevnar 13) Branch Influenza High Dose 2016-07-02 Completed Unive rsity of 00:00:[address] [facility] Influenza High Dose 2016-07-02 Completed Unive rsity of 00:00:00 [facility] Branch Influenza High Dose 2016-07-02 Completed Unive rsity of 00:00:00 [facility] Branch Influenza High Dose 2016-07-02 Completed Unive rsity of 00:00:00 [facility] Branch Influenza High Dose 2016-07-02 Completed Unive rsity of 00:00:[address] [facility] Influenza High Dose 2016-07-02 Completed Unive rsity of 00:00:[address] [facility] Influenza High Dose 2016-07-02 Completed Unive rsity of 00:00:00 [facility] Branch Influenza High Dose 2016-07-02 Completed Unive rsity of 00:00:00 [facility] Branch Influenza High Dose 2016-07-02 Completed Unive rsity of 00:00:00 [facility] Branch Influenza High Dose 2016-07-02 Completed Unive rsity of 00:00:00 [facility] Branch Influenza High Dose 2016-07-02 Completed Unive rsity of 00:00:00 [facility] Branch Influenza High Dose 2016-07-02 Completed Unive rsity of 00:00:[address] [facility] Influenza High Dose 2016-07-02 Completed Unive rsity of 00:00:[address] [facility] Influenza High Dose 2016-07-02 Completed Unive rsity of 00:00:00 [facility] Branch Influenza High Dose 2016-07-02 Completed Unive rsity of 00:00:[address] [facility] Influenza High Dose 2016-07-02 Completed Unive rsity of 00:00:[address] [facility] Zoster(Zostavax)( 2013-09-22 Completed Unive rsity of ingles) 00:00:00 [facility] Branch Zoster(Zostavax)( 2013-09-22 Completed Unive rsity of ingles) 00:00:[address] [facility] Zoster(Zostavax)( 2013-09-22 Completed Unive rsity of ingles) 00:00:[address] [facility] Zoster(Zostavax)( 2013-09-22 Completed Unive rsity of ingles) 00:00:00 [facility] Branch Zoster(Zostavax)( 2013-09-22 Completed Unive rsity of ingles) 00:00:00 [facility] Branch Zoster(Zostavax)( 2013-09-22 Completed Unive rsity of ingles) 00:00:00 [facility] Branch Zoster(Zostavax)( 2013-09-22 Completed Unive rsity of ingles) 00:00:00 [facility] Branch Zoster(Zostavax)( 2013-09-22 Completed Unive rsity of ingles) 00:00:00 [facility] Branch Zoster(Zostavax)( 2013-09-22 Completed Unive rsity of ingles) 00:00:[address] [facility] Zoster(Zostavax)( 2013-09-22 Completed Unive rsity of ingles) 00:00:[address] [facility] Zoster(Zostavax)( 2013-09-22 Completed Unive rsity of ingles) 00:00:[address] [facility] Zoster(Zostavax)( 2013-09-22 Completed Unive rsity of ingles) 00:00:[address] [facility] Zoster(Zostavax)( 2013-09-22 Completed Unive rsity of ingles) 00:00:[address] [facility] Zoster(Zostavax)( 2013-09-22 Completed Unive rsity of ingles) 00:00:[address] [facility] Zoster(Zostavax)( 2013-09-22 Completed Unive rsity of ingles) 00:00:[address] [facility] Zoster(Zostavax)( 2013-09-22 Completed Unive rsity of ingles) 00:00:[address] [facility] Vital Signs Vital Name Observation Time Observation Value Comments Source Systolic blood 2019-11-09 18:57:00 131 mm[Hg] Univer sity of pressure [facility] Diastolic blood 2019-11-09 18:57:00 81 mm[Hg] [facility] [facility] Heart rate 2019-11-09 18:57:00 90 /min [facility] Body temperature 2019-11-09 18:57:00 36.17 Nicole [facility] ersity of [facility] Respiratory rate 2019-11-09 18:57:00 20 /min Univ ersity of [facility] Body height 2019-11-09 18:57:00 165.1 cm [facility] Body weight 2019-11-09 18:57:00 76.2 kg [facility] BMI 2019-11-09 18:57:00 27.96 kg/m2 [facility] Systolic blood 2019-11-09 18:57:00 131 mm[Hg] Univer sity of pressure [facility] Diastolic blood 2019-11-09 18:57:00 81 mm[Hg] Unive rsity of pressure [facility] Heart rate 2019-11-09 18:57:00 90 /min Universi ty of [facility] Body temperature 2019-11-09 18:57:00 36.17 Nicole [facility] Respiratory rate 2019-11-09 18:57:00 20 /min [facility] ersity of [facility] Body height 2019-11-09 18:57:00 165.1 cm Universi ty of [facility] Body weight 2019-11-09 18:57:00 76.2 kg [facility] BMI 2019-11-09 18:57:00 27.96 kg/m2 Universi ty of [facility] Body temperature 2019-05-14 20:50:00 35.72 Nicole [facility] ersity of [facility] Body temperature 2019-05-12 18:28:00 36.22 Nicole [facility] ersity of [facility] Body weight 2019-05-12 18:28:00 72.621 kg Universi ty of [facility] BMI 2019-05-12 18:28:00 25.84 kg/m2 Universi ty of [facility] Procedures Procedure Date / Time Performing Clinician Source Performed SCANNED LAB RESULTS 2019-11-09 06:01:00 Doctor Unassigned, No [facility] [place] [facility] PPD (TB) 2019-05-12 19:26:19 Irma Pennington [facility] A Medical Branch PNEUMOCOCCAL VACCINE, 2019-05-12 19:26:19 Irma Pennington [facility] 23-VALENT (PNEUMOVAX) A Medical Br anch Encounters Start End Encounter Admission Attending Care Care Encounter Source Date/Time Date/Time Type Type Clinicians Facility Department ID 2021-08-14 2021-08-14 ambulatory [facility] [id number] [facility] 2021-07-26 2021-07-26 Outpatient [facility] [id number] [facility] 2021-06-29 2021-06-29 Outpatient [facility] [id number] [facility] 2021-06-14 2021-06-14 Out[facility] [id number] [facility] 2021-04-20 2021-04-20 Outpatient [facility] [id number] [facility] 2021-04-12 2021-04-12 Outpatient [facility] [id number] [facility] 2021-04-04 2021-04-04 Outpatient [facility]LMLC [facility] [id number] [facility] 2021-04-03 2021-04-03 Outpatient [facility]LMLC [facility] [id number] [facility] 2021-02-20 2021-02-20 Outpatient [facility]LMLC [facility] [id number] [facility] 2021-01-30 2021-01-30 Outpatient [facility]LMLC [facility] [id number] [facility] 2020-12-19 2020-12-19 Outpatient STLMLC [facility] [id number] [facility] 2020-11-14 2020-11-14 Outpatient R CESARIO [facility] [id number] Univers 14:30:00 14:30:00 PORTER [id number] [facility] 2020-11-14 2020-11-14 Outpatient R CESARIO [facility] [id number] Univers 14:30:00 14:30:00 PORTER [facility] 2020-10-17 2020-10-17 Outpatient R CESARIO [facility] [id number] Univers 14:20:00 14:20:00 PORTER [id number] [facility] 2020-10-17 2020-10-17 Outpatient Homer NASSAR [facility] [id number] Univers 14:20:00 14:20:00 PORTER [facility] 2020-10-17 2020-10-17 Outpatient Homer NASSAR [facility] [id number] Univers 14:20:00 14:20:00 PORTER [facility] 2020-07-18 2020-07-18 [facility] 1.2.840.114 [id number] Univers 00:00:00 00:00:00 Irma A Health [id number] ity of [place] [id number] [place] as Professio [phone] [address] 2020-07-18 2020-07-18 Formerly [facility] 1.2.840.114 [id number] 00:00:00 00:00:00 Irma A Health [id number] [place] [id number] Professio [phone] [place] [address] Office [facility] One 2020-06-03 2020-06-03 Formerly [facility] 1.2.840.114 [id number] Univers 00:00:00 00:00:00 Irma A Health [id number] ity of [place] [id number] [place] Professio [phone] [address] One 2020-06-03 2020-06-03 [facility] 1.2.840.114 [id number] 00:00:00 00:00:00 Irma A [facility] [id number] [place] [id number] Professio [phone] [facility] [address] One 2020-05-24 2020-05-24 Outpatient Roxanne Oliveirat [id number] 11:00:00 11:00:00 [facility] ent Clinics 2020-05-17 2020-05-17 [facility]patient [facility] [place] [id number] 09:08:00 09:08:00 [facility] ent Clinics 2020-05-02 2020-05-02 Outpatient [facility] Roxannet [id number] 10:30:00 10:30:00 [facility] ent [facility] 2020-03-03 2020-03-03 [facility] 1.2.840.114 [id number] [facility] 00:00:00 00:00:00 Irma A Mina [id number] [place] [phone] [address] 2020-03-03 2020-03-03 Refill Penning[place], [facility] 1.2.840.114 [id number] 00:00:00 00:00:00 Irma A Mina 350.1.13.10 [place] 4.2.7.2.686 Professio [phone] [address] 2020-03-01 2020-03-01 Telephone [place], [facility] 1.2.840.114 [id number] Univers 00:00:00 00:00:00 Irma A [place] [id number] [place] [phone] [address] 2020-03-01 2020-03-01 [facility] 1.2.840.114 [id number] 00:00:00 00:00:00 Irma A [place] 350.1.13.10 [place] 4.2.7.2.686 Professio [phone] [address] 2020-02-26 2020-02-26 [facility] 1.2.840.114 [id number] Univers 00:00:00 00:00:00 Irma A [place] 350.1.13.10 [place] [phone] [address] 2020-02-26 2020-02-26 [facility] 1.2.840.114 [id number] 00:00:00 00:00:00 Irma A [place] 350.1.13.10 [place] 4.2.7.2.686 Professio [phone] [address] 2019-12-26 2019-12-26 [facility] 1.2.840.114 [id number] [facility] 00:00:00 00:00:00 Irma A [place] 350.1.13.10 [place] [phone] [address] 2019-12-26 2019-12-26 Refill [place], [facility] 1.2.840.114 [id number] 00:00:00 00:00:00 Irma A [place] 350.1.13.10 [place] 4.2.7.2.686 Professio [phone] [address] 2019-12-08 2019-12-08 Telephone Dex Fair [facility] 1.2.840.114 [id number] [facility] 00:00:00 00:00:00 W SPECIALTY 350.1.13.10 ity [place] [phone] [address] 2019-12-08 2019-12-08 Telephone Dex Fair [facility] 1.2.840.114 [id number] 00:00:00 00:00:00 W SPECIALTY 350.1.13.10 [place] 4.2.7.2.686 [place] [phone] [facility] 2019-12-01 2019-12-01 [facility] [id number] Univers 00:00:00 00:00:00 Rosario SPECIALTY 350.1.13.10 [place] [phone] [address] 2019-12-01 2019-12-01 [facility] 1.2.840.114 [id number] [facility] 00:00:00 00:00:00 Irma A [place] 350.1.13.10 [place] [phone] [address] 2019-12-01 2019-12-01 [facility] [id number] 00:00:00 00:00:00 Rosario SPECIALTY 350.1.13.10 [place] 4.2.7.2.686 COL[place]Y [phone] [facility] 2019-12-01 2019-12-01 [facility] 1.2.840.114 [id number] 00:00:00 00:00:00 Irma A [place] 350.1.13.10 [place] 4.2.7.2.686 Professio [phone] [address] 2019-11-26 2019-11-26 [facility] 1.2.840.114 [id number] [facility] 00:00:00 00:00:00 Irma A [place] 350.1.13.10 [place] [phone] [address] 2019-11-09 2019-11-09 Office Rosario Lopez [facility] 1.2.840. 114 [id number] [facility] 12:48:32 13:48:32 Visit Dex Fair W SPECIALTY 350.1.13.10 [place] [phone] [facility] [address] [place] 2019-11-09 2019-11-09 Office Jessica [facility] 1.2.840.114 [id number] 12:48:32 13:48:32 Visit Rosario [place] 350.1.13.10 [place] 4.2.7.2.686 [place] [phone] 161 2019-11-09 2019-11-09 Orders Doctor AUBRIE 1.2.840.114 [id number] Univers 00:00:00 00:00:00 Only Unassigned, [place] 350.1.13.10 ity of [place] [facility] 4.2.7.2.686 Shine as [phone] [facility] [address] [place] 2019-11-09 2019-11-09 Orders Doctor AUBRIE 1.2.840.114 [id number] 00:00:00 00:00:00 Only Unassigned, [place] 350.1.13.10 [place] [facility] 4.2.7.2.686 [id number] 009 2019-05-14 2019-05-14 Nurse Nurse, Adc [facility] 1.2.840.114 [id number] [facility] 15:28:41 15:43:41 Visit Irma [place] 350.1. 13.10 [place] [phone] [facility] 044 [facility] 2019-05-14 2019-05-14 Letter Aditi [facility] 1.2.840.114 [id number] Univers 00:00:00 00:00:00 (Out) Irma Enriquez 350.1.13.10 [place] [phone] Id dical sandra 231 [facility] 2019-05-12 2019-05-12 Nurse Nurse, [facility] 1.2.840.114 [id number] [facility] 13:01:21 15:09:23 Visit Irma [place] 350.1. 13.10 it[place].2.[place] [phone] [address] 2019-03-26 2019-03-26 [place] [facility] [id number] 08:00:00 08:00:00 [facility] 2019-01-12 2019-01-12 Outpatient [place]anne [place] [id number] 11:00:00 11:00:00 [facility] Results Test Description Test Time Test Comments Results Result Comments Source HEMOGLOBIN A1C 2017-05-16 21:48:00 Test Item Value Reference Range Interpretation Comme nts HEMOGLOBIN A1C (BEAKER) (test code = 368) 6.2 % 4.3-6.1 H [id number] 07:10:00 Test Item Value Reference Range Interpretation Comments MAGNESIUM (BEAKER) (test code = 1.9 mg/dL 1.6-2.6 627) BASIC METABOLIC [id number] 07:10:00 Test Item Value Reference Range Interpretation [...] WBC 0-0 (BEAKER) (test code = 413) [id number] 05:45:00 Test Item Value Reference Range Interpretation Comments MAGNESIUM (BEAKER) 2.3 mg/dL 1.6-2.6 Specimen moderately (test code = 627) hemolyzed COMPREHENSIVE METABOLIC [id number] 05:45:00 Test Item Value Reference Range Interpretation [...] S NOT APPLICABLE FOR DIALYSIS PATIEN TS. [id number] 11:50:00 Test Item Value Reference Range Interpretation Comments RPR SCREEN (BEAKER) (test code = Nonreactive Nonreactive 420) BASIC METABOLIC [id number] 06:28:00 Test Item Value Reference Range Interpretation [...] NOT APPLICABLE FOR DIALYSIS PATIEN TS. FastingLIPID [id number] 06:28:00 Test Item Value Reference Range Interpretation [...] 160-189 Very High >=190 FastingVITAMIN B12 AND [id number] 04:10:00 Test Item Value Reference Range Interpretation Comments VITAMIN B12 (BEAKER) (test code = 514 pg/mL 213-816 774) FOLATE (BEAKER) (test code = 362) > ng/mL >=7.0 Effective 08/31/2014: Folate Reference Range ChangeNew: >=7.0 Previous: >=5.4TSH/FREE T4 IF [id number] 02:52:00 Test Item Value Reference Range Interpretation Comments THYROID STIMULATING HORMONE 2.55 uIU/mL 0.35-4.94 (BEAKER) (test code = 772) SEDIMENTATION [id number] 01:10:00 Test Item Value Reference Range Interpretation Comments SEDIMENTATION RATE, ERYTHROCYTE 6 mm/HR 0-40 (BEAKER) (test code = 766) [id number] 00:35:00 Test Item Value Reference Range Interpretation Comments HOMOCYSTEINE (BEAKER) (test code = 8.5 umol/L 5.1-15.4 642) URINALYSIS W/ [id number] 00:30:00 Test Item Value Reference Range Interpretation [...] (test code = Urine, Voided 2795) TROPONIN [id number] 00:23:00 Test Item Value Reference Range Interpretation [...] acute neurological disease, and persistent tachyarrhythmia.HEPATIC FUNCTION [id number] 00:17:00 Test Item Value Reference Range Interpretation [...] = 31 U/L 6-55 347) BASIC METABOLIC [id number] 00:17:00 Test Item Value Reference Range Interpretation [...] NOT APPLICABLE FOR DIALYSIS PATIEN TS. C-REACTIVE [id number] 00:17:00 Test Item Value Reference Range Interpretation Comments C-REACTIVE PROTEIN (BEAKER) (test 0.55 mg/dL 0.00-0.50 H code = 676) PROTHROMBIN [id number] 00:07:00 Test Item Value Reference Range Interpretation [...]
[2021-08-27 06:35] LABS: Absolute Lymphocytes (CBC) 1.1 K/uL (0.7-4.9); Basophils % 0.6 % (0-1.3); Hematocrit 52.7 % (36.0-45.0); Lymphocytes % 8.7 % (15.3-44.8); MPV 9.1 fL (7.6-11.3); RBC Red Blood Cell Count 5.49 M/uL (3.86-4.86)
[2021-08-27 06:42] LABS: Magnesium 2.7 mg/dL (1.8-2.4); Potassium 3.9 mmol/L (3.5-5.1)
[2021-08-27] MEDS: INSULIN -REGULAR HUMAN 50 UNIT/0.5 ML ML SQ SCH ×4 (07:30→20:26)
[2021-08-27] MEDS: RIVAROXABAN 15 MG TABLET PO SCH (09:00)
[2021-08-27] MEDS: FUROSEMIDE 40 MG TABLET PO SCH ×2 (11:12→20:25)
[2021-08-27] MEDS: VALSARTAN 160 MG TAB PO SCH (11:16)
[2021-08-27] MEDS: FAMOTIDINE 20 MG TAB PO SCH (11:17)
[2021-08-27] MEDS: METOPROLOL TAR 50 MG TAB PO SCH ×2 (11:17→20:25)
[2021-08-27] MEDS: DULOXETINE 20 MG CAP PO SCH (11:17)
[2021-08-27] MEDS: POTASSIUM CL SA 10 MEQ TAB PO SCH ×3 (11:17→20:25)
[2021-08-27] MEDS: CEFTRIAXONE 1,000 MG in NA CHLORIDE 0.9% 50 ML IVPB SCH ×2 (12:05→20:26)
--- NOTE | 2021-08-27 14:03 | HP ---
Date of Admission: 08/27/2021 Chief Complaint: Nausea, vomiting, and burning on urination. History Of Present Illness: This is an 80-year-old female patient who started to have nausea, vomiti ng 3-4 days ago, in last couple of days started to have burning sensation on urination. Yesterday, s he was feeling very weak, dizzy, and was also noted to have altered mental status, so she was brought into emergency room. After she was evaluated in the ER, she was admitted to the hospital. Today, s he feels better, but still has some confusion. Allergies: NO KNOWN ALLERGIES. Medications: List reviewed. Review of Systems: Genitourinary: As mentioned above. 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 GI: As mentioned above. All other systems reviewed and negative. Past Medical History: Significant for recurrent urinary tract infection for which she is under care of urologist, Dr. Delaney. Past Medical History: Also significant for allergic rhinitis, impaired fasting glucose, hypertension , mixed hyperlipidemia, chronic diastolic congestive heart failure, paroxysmal atrial fibrillation, d iverticulosis, chronic kidney disease stage 3 to stage 4, leg edema, varicose veins, osteoarthritis a t multiple sites, anxiety, depression. Past Surgical History: Significant for resection of colon due to colon cancer June 28, 2012, hy sterectomy, bladder suspension, back surgery. Family History: Father had stroke. Mother had colon cancer. Social History: Negative for smoking and alcohol use. Physical Examination: Vital Signs: Temperature 97.6, pulse 71, respiratory rate 17, blood pressure 159/81, oxygen saturati on 95% on room air, height 5 feet 6 inches, weight 171 pounds. General: Awake, alert, oriented, not in distress. HEENT: Head atraumatic, normocephalic. Conjunctivae nonerythematous. Sclerae white. Mouth, no thr ush or edema noted. Ears/Nose, no mass, lesion, discharge noted. Neck: Supple. No JVD, lymph nodes, bruit, thyromegaly noted. Lungs: Presence of rales in both lung bases. Not in any respiratory distress. Heart: Normal heart sounds, no murmur or gallop. Abdomen: Soft, bowel sounds normal. No guarding, rigidity, tenderness, mass, hepatosplenomegaly, dis tention, or bruit noted. Extremities: Very trace leg edema in the lower 1/4 of both legs. Skin: No rash, ulcer, cellulitis. Lymphatics: No lymph node enlargement in neck, supraclavicular, infraclavicular region. Neuro: No focal neurological deficit. Chest: Unremarkable. External Genitalia: Deferred. Rectal: Deferred. Laboratory Data: Yesterday white count 14.6, hemoglobin 18.3, platelets 195. This morning, white co unt 12.2, hemoglobin 17.4, platelets 160. INR 1.90. Yesterday; sodium 134, potassium 4.6, chloride 88, bicarb 34, BUN 62, creatinine 2.10, glucose 179, total bilirubin 5.4, direct bilirubin 0.4, AST 2 8, ALT 24, alkaline phosphatase 93. Troponin 0.09. ProBNP 6826. Procalcitonin 0.06. This morning, sodium 140, potassium 3.9, chloride 97, bicarb 34, BUN 61, creatinine 1.41, glucose 161 and creatini ne 2.7. Urinalysis; 2+ esterase, WBC TNTC, bacteria loaded. COVID-19 test negative. CAT scan of ab domen and pelvis without contrast shows no acute or emergent finding. CAT scan of the head without c ontrast, no acute intracranial changes. Chest x-ray, no acute cardiopulmonary changes. Impression: 1.Toxic encephalopathy. 2.Urinary tract infection. 3.Volume depletion. 4.Acute kidney injury. 5.Chronic kidney disease stage 3A. 6.Paroxysmal atrial fibrillation. 7.Chronic anticoagulation therapy. 8.Chronic diastolic heart failure. 9.Hypertension. 10.Hyperlipidemia. 11.Osteoarthritis at multiple sites. 12.Anxiety. 13.Depression. 14.Impaired fasting glucose. We will admit the patient to hospital for further evaluation and management of this problem. [facility] and is expected to spend 2 midnights in hospital. Fall precaution was ordered. Consult Physical Therapy. We will go ahead and continue home medications per order. E mpiric antibiotic, ceftriaxone was started and we will continue that. Urine culture preliminary is g rowing gram-negative rods. Once we have final results, then we will decide about culture specific an tibiotics. The patient lives at [facility]. Plan is to go back to [facility] upon discharge. S he was advised to follow up with her urologist after discharge from the hospital. We will consult ysical Therapy. The patient's volume depletion has improved after 1 L of IV fluid was given per tasneem greer. We will not give any further IV fluid. Her last outpatient creatinine was around 1.3. I will se e her tomorrow morning for followup. Details and plan of treatment discussed with the patient and e patient's daughter. The patient still has some confusion as noted today, but it is better than yes terday as I understand. HITESH/MODL Voice ID: [id number]
[2021-08-27 17:22] VITALS: BMI 24.0
--- NOTE | 2021-08-27 18:55 | PN ---
Date of Progress Note: 08/27/2021 After I saw the patient, her daughter contacted me, Vee and wanted some updates on the patient's c ondition and informations discussed with her. She also brought it to my attention that the patient w ill be DNR order in place. So, I did talk to the patient on the phone and confirmed her decision for do not resuscitate and order was entered into her chart. HITESH/MODL Voice ID: [id number] Report ID: [id number]
[2021-08-27] MEDS ORDERED: NA CHLORIDE 0.9% 50 ML ONE (20:20)
[2021-08-27] MEDS ORDERED: CEFTRIAXONE 1000 MG/VIAL ONE (20:21)
[2021-08-27] MEDS: ATORVASTATIN 40 MG TAB PO SCH (20:26)
[2021-08-28] MEDS: INSULIN -REGULAR HUMAN 50 UNIT/0.5 ML ML SQ SCH ×4 (07:30→21:00)
[2021-08-28] MEDS ORDERED: CEFTRIAXONE 1000 MG/VIAL ONE ×2 (08:46→20:02)
[2021-08-28] MEDS: FUROSEMIDE 40 MG TABLET PO SCH ×2 (09:23→21:00)
[2021-08-28] MEDS: POTASSIUM CL SA 10 MEQ TAB PO SCH ×3 (09:23→21:00)
[2021-08-28] MEDS: CEFTRIAXONE 1,000 MG in NA CHLORIDE 0.9% 50 ML IVPB SCH ×2 (09:23→23:05)
[2021-08-28] MEDS: METOPROLOL TAR 50 MG TAB PO SCH ×2 (09:24→21:00)
[2021-08-28] MEDS: DULOXETINE 20 MG CAP PO SCH (09:24)
[2021-08-28] MEDS: RIVAROXABAN 15 MG TABLET PO SCH (09:24)
[2021-08-28] MEDS: FAMOTIDINE 20 MG TAB PO SCH (09:24)
[2021-08-28] MEDS: VALSARTAN 160 MG TAB PO SCH (09:24)
[2021-08-28] MEDS ORDERED: NA CHLORIDE 0.9% 0 ML ONE (20:07)
[2021-08-28] MEDS: ATORVASTATIN 40 MG TAB PO SCH (21:00)
--- NOTE | 2021-08-29 01:23 | PN ---
Date of Progress Note: 08/28/2021 Subjective: The patient was seen this morning for followup. She was lying in bed, not in distress, overall feeling much better than yesterday. Says that she ambulated yesterday with Physical Therapy. Objective: Vital Signs: Reviewed. HEENT: Unremarkable. Lungs: Clear to auscultation. Heart: Heart sounds normal. Abdomen: Soft. Bowel sounds normal. No guarding, rigidity, tenderness, distention. Extremities: No leg edema. Laboratory Data: Urine culture grew E coli. It is sensitive to ceftriaxone that the patient is curr ently on and also sensitive to Cipro. Impression: 1.Toxic encephalopathy. 2.Volume depletion. 3.Acute kidney injury. 4.Chronic diastolic congestive heart failure. 5.Generalized weakness. Plan: After I saw the patient, urine culture result was available, and when I saw her, I informed he r that depending on the urine culture results my plan will be to discharge her to go home today or to [place] and after reviewing urine culture results, discharge order was written, but the patient inform ed nursing staff while going home because of generalized weakness, so with that her discharge order w as canceled. We will continue current IV antibiotics, continue other current medical management. Physical therapy to continue to work with her and I will see her tomorro w for followup. HITESH/MODL Voice ID: [id number] Report ID: [id number]
[2021-08-29] MEDS: ACETAMINOPHEN 500 MG TAB PO PRN (06:18)
[2021-08-29] MEDS: INSULIN -REGULAR HUMAN 50 UNIT/0.5 ML ML SQ SCH ×4 (07:30→21:00)
[2021-08-29 09:05] LABS: Absolute Lymphocytes (CBC) 0.8 K/uL (0.7-4.9); Basophils % 0.8 % (0-1.3); Hematocrit 47.9 % (36.0-45.0); Lymphocytes % 8.1 % (15.3-44.8); MPV 9.9 fL (7.6-11.3); RBC Red Blood Cell Count 5.02 M/uL (3.86-4.86)
[2021-08-29 09:21] LABS: Potassium 3.5 mmol/L (3.5-5.1)
[2021-08-29] MEDS: POTASSIUM CL SA 10 MEQ TAB PO SCH ×3 (10:35→20:57)
[2021-08-29] MEDS: VALSARTAN 160 MG TAB PO SCH (10:35)
[2021-08-29] MEDS: METOPROLOL TAR 50 MG TAB PO SCH ×2 (10:35→20:58)
[2021-08-29] MEDS: RIVAROXABAN 15 MG TABLET PO SCH (10:35)
[2021-08-29] MEDS: FUROSEMIDE 40 MG TABLET PO SCH ×2 (10:36→20:58)
[2021-08-29] MEDS: DULOXETINE 20 MG CAP PO SCH (10:36)
[2021-08-29] MEDS: FAMOTIDINE 20 MG TAB PO SCH (10:36)
[2021-08-29] MEDS: CEFTRIAXONE 1,000 MG in NA CHLORIDE 0.9% 50 ML IVPB SCH ×2 (10:37→20:59)
[2021-08-29] MEDS: ATORVASTATIN 40 MG TAB PO SCH (20:58)
[2021-08-29] MEDS: GABAPENTIN 100 MG CAP PO SCH (20:59)
--- NOTE | 2021-08-30 01:15 | PN ---
Date of Progress Note: 08/29/2021 Subjective: Patient was seen for followup this morning. She was sitting in the chair. She is compl aining of pain in her both feet with some tingling sensation. She has this problem off and on for so me time, but last night it was worse. Objective: Vital Signs: Reviewed. HEENT: Unremarkable. Lungs: Clear to auscultation. No rales, not in any distress. Heart: Heart sounds normal. Abdomen: Soft, bowel sounds normal. No guarding, rigidity, tenderness, or distention. Extremities: No leg edema. Laboratory Data: White count 10.2, hemoglobin 15.8, platelets 137. Sodium 136, potassium 3.5, chlor ariel 93, bicarb 32, BUN 36, creatinine 1.23, glucose 234 and this was done after breakfast this mattmartita alexey. Impression: 1.Urinary tract infection. 2.Generalized weakness. 3.Debility. 4.Diabetes mellitus with peripheral neuropathy. 5.Chronic diastolic congestive heart failure. 6.Hypertension. Plan: We will continue current antibiotic. The patient does not feel comfortable going home because of . Continue to work with physical therapy today and see how she feels by tomorrow. We will start her on gabapentin 100 mg 2 times a day and continue current antibiotics and other current medical management. I will see her tomorrow morning for followup. HITESH/MODL Voice ID: [id number] Report ID: [id number]
[2021-08-30] MEDS: INSULIN -REGULAR HUMAN 50 UNIT/0.5 ML ML SQ SCH ×2 (07:30→11:30)
[2021-08-30 09:07] VITALS: O2SAT 95
[2021-08-30] MEDS: RIVAROXABAN 15 MG TABLET PO SCH (09:23)
[2021-08-30] MEDS: FUROSEMIDE 40 MG TABLET PO SCH (09:23)
[2021-08-30] MEDS: POTASSIUM CL SA 10 MEQ TAB PO SCH (09:23)
[2021-08-30] MEDS: VALSARTAN 160 MG TAB PO SCH (09:23)
[2021-08-30] MEDS: GABAPENTIN 100 MG CAP PO SCH (09:23)
[2021-08-30] MEDS: METOPROLOL TAR 50 MG TAB PO SCH (09:23)
[2021-08-30] MEDS: CEFTRIAXONE 1,000 MG in NA CHLORIDE 0.9% 50 ML IVPB SCH (09:24)
[2021-08-30] MEDS: FAMOTIDINE 20 MG TAB PO SCH (09:28)
[2021-08-30] MEDS: DULOXETINE 20 MG CAP PO SCH (09:28)
[2021-08-30] MEDS: ACETAMINOPHEN 500 MG TAB PO PRN (10:49)
[2021-08-30 12:47] VITALS: BP 109/57; TEMP 97.6
== END 2021-08-30 13:00 | disposition home health service (06) | DRG 689 ==
LOC: ER 12:10 → ERHOLD 16:48 → 2ND 20:08
PROVIDERS: ADMIT Internal Medicine; ATTEND Internal Medicine
DX: N39.0 Urinary tract infection, site not specified (principal); G92.9 Unspecified toxic encephalopathy; I50.32 Chronic diastolic (congestive) heart failure; I13.0 Hypertensive heart and chronic kidney disease with heart failure and stage 1 through stage 4 chronic kidney disease, or unspecified chronic kidney disease; N17.9 Acute kidney failure, unspecified; N18.31 Chronic kidney disease, stage 3a; E11.22 Type 2 diabetes mellitus with diabetic chronic kidney disease; E11.42 Type 2 diabetes mellitus with diabetic polyneuropathy; E78.5 Hyperlipidemia, unspecified; E86.9 Volume depletion, unspecified; I48.0 Paroxysmal atrial fibrillation; F41.9 Anxiety disorder, unspecified; F32.A Depression, unspecified; M19.90 Unspecified osteoarthritis, unspecified site; E86.0 Dehydration; B96.20 Unspecified Escherichia coli [E. coli] as the cause of diseases classified elsewhere; Z66 Do not resuscitate; Z79.01 Long term (current) use of anticoagulants; Z79.899 Other long term (current) drug therapy; Z86.73 Personal history of transient ischemic attack (TIA), and cerebral infarction without residual deficits; Z85.038 Personal history of other malignant neoplasm of large intestine; Z90.710 Acquired absence of both cervix and uterus; Z90.49 Acquired absence of other specified parts of digestive tract; Z20.822 Contact with and (suspected) exposure to COVID-19
CPT/HCPCS: 36415; 51702; 70450; 71045; 74176; 80048; 80076; 81003; 81015; 82565; 82947; 83605; 83690; 83735; 83880; 84145; 84484; 85025; 85610; 87077; 87086; 87088; 87186; 93005; 96361; 96365; 96366; 96375; 97116; 97161; 97530; 99285; J2405; J7030; J7040; U0003

== ENCOUNTER 2021-09-21 19:42 | Inpatient (IN) | payer OTHER ==
--- OUTSIDE RECORDS SUMMARY | 2021-09-21 19:48 | XMS REPORT | Continuity of Care Document ---
:1940 Author Organization [facility] t Address [address] [place] [address] Care Team Providers Name Role Phone Kaushik Banks MD Primary Care Physician Gracie ANDINO Attending Clinician Unavailable Gracie Andino DO Attending Clinician Dusty NASSAR Attending Clinician Unavailable Aditi LEYVA, Derek Attending Clinician Marv LEYVA, W Attending Clinician Jessica Attending Clinician Unavailable Doctor Unassigned, Name Attending Clinician Unavailable Nurse, Fam Attending Clinician Unavailable RADHA Attending Clinician Unavailable RADHA Admitting Clinician Unavailable Payers Payer Name Policy Type Policy Number Effective Date Expiration Date S denae AETKATYA MANAGED [id number] 2020 MEDICARE PPO-RENEE 00:00:00 Problems Condition Condition Condition Status Onset [...] Disease Active Overview: Univer s fibrillati fibrillati Formattin ity of on on g of this [place] note Medical might be Branch different from the original. on Xarelto HTN HTN Disease Active Univers (hypertens (hypertens it y of ion), ion), [place] benign benign Medical Branch HLD HLD Disease Active Univers (hyperlipi (hyperlipi it y of demia) demia) [facility] Osteoarthr Osteoarthr Disease Active U nivers [...] Active Univers ALLERGIE Class ity of S [facility] Social History Social Habit Start Date Stop Date Quantity Comments Source Exposure to Not sure [facility] SARS-CoV-2 [facility] (event) Branch Alcohol intake 2021-09-16 2021-09-16 Current University 00:00:00 00:00:00 non-drinker of [facility] alcohol Branch (finding) Tobacco use and 2019-11-27 2019-11-27 Never used Universit y of exposure 00:00:00 00:00:00 [facility] Sex Ass[birth year] Universit [facility] of 00:00:00 00:00:00 [facility] Smoking Status Start Date Stop Date Source Never smoker [facility] Medications Ordered Filled Start Stop Current Ordering Indication Dosage Frequency Signature Comments Components Source Medication Medication Date Date Medication? Clinician (SIG) Name Name cefpodoxime 2020-10- Yes [id number] 100mg Take 1 Univers 100 mg 2-04 12-12 tablet by ity of tablet 00:00: 05:59 mouth 2 [place] 00 :00 (two) Medical times Branch daily for 7 days. DULOXETINE 2020-0 Yes [id number] 20mg TAKE 1 U nivers 20 mg 5-22 CAPSULE BY ity of capsule 00:00: MOUTH [place] 00 DAILY. Medical KEEP ON Branch FILE. DULOXETINE 2020-0 Yes [id number] 20mg TAKE 1 U nivers 20 mg 5-22 CAPSULE BY ity of capsule 00:00: MOUTH [place] 00 DAILY. Medical KEEP ON Branch FILE. DULOXETINE 2020-0 Yes [id number] 20mg TAKE 1 U nivers 20 mg 5-22 CAPSULE BY ity of capsule 00:00: MOUTH [place] 00 DAILY. Medical KEEP ON Branch FILE. DULOXETINE 2020-0 Yes [id number] 20mg TAKE 1 U nivers 20 mg 5-22 CAPSULE BY ity of capsule 00:00: MOUTH [place] 00 DAILY. Medical KEEP ON Branch FILE. METOPROLOL 2020-0 Yes [id number] TAKE 1 U nivers TARTRATE 3-16 TABLET BY ity of 100 mg 00:00: MOUTH [place] tablet 00 TWICE A Medical DAY Branch METOPROLOL 2020-0 Yes [id number] TAKE 1 U nivers TARTRATE 3-16 TABLET BY ity of 100 mg 00:00: MOUTH [place] tablet 00 TWICE A Medical DAY Branch METOPROLOL 2020-0 Yes [id number] TAKE 1 U nivers TARTRATE 3-16 TABLET BY ity of 100 mg 00:00: MOUTH [place] tablet 00 TWICE A Medical DAY Branch METOPROLOL 2020-0 Yes [id number] TAKE 1 U nivers TARTRATE 3-16 TABLET BY ity of 100 mg 00:00: MOUTH [place] tablet 00 TWICE A Medical DAY Branch METOPROLOL 2020-0 Yes [id number] TAKE 1 U nivers TARTRATE 3-16 TABLET BY ity of 100 mg 00:00: MOUTH [place] tablet 00 TWICE A Medical DAY Branch METOPROLOL 2020-0 Yes [id number] TAKE 1 U nivers TARTRATE 3-16 TABLET BY ity of 100 mg 00:00: MOUTH [place] tablet 00 TWICE A Medical DAY Branch METOPROLOL 2020-0 Yes [id number] TAKE 1 U nivers TARTRATE 3-16 TABLET BY ity of 100 mg 00:00: MOUTH [place] tablet 00 TWICE A Medical DAY Branch OLMESARTAN 2018-10 Yes [id number] 40mg TAKE 1 Un mega 40 mg 2-27 TABLET BY ity of tablet 00:00: MOUTH [place] 00 DAILY. Medical KEEP ON Branch FILE. OLMESARTAN 2018-10 Yes [id number] 40mg TAKE 1 [facility] 40 mg 2-27 TABLET BY ity of tablet 00:00: MOUTH [place] 00 DAILY. Medical KEEP ON Branch FILE. OLMESARTAN 2018-10 Yes [id number] 40mg TAKE 1 [facility] 40 mg 2-27 TABLET BY ity of tablet 00:00: MOUTH [place] 00 DAILY. Medical KEEP ON Branch FILE. OLMESARTAN 2018-10 Yes [id number] 40mg TAKE 1 [facility] 40 mg 2-27 TABLET BY ity of tablet 00:00: MOUTH [place] 00 DAILY. Medical KEEP ON Branch FILE. OLMESARTAN 2018-10 Yes [id number] 40mg TAKE 1 [facility] 40 mg 2-27 TABLET BY ity of tablet 00:00: MOUTH [place] 00 DAILY. Medical KEEP ON Branch FILE. OLMESARTAN 2018-10 Yes [id number] 40mg TAKE 1 [facility] 40 mg 2-27 TABLET BY ity of tablet 00:00: MOUTH [place] 00 DAILY. Medical KEEP ON Branch FILE. OLMESARTAN 2018-10 Yes [id number] 40mg TAKE 1 [facility] 40 mg 2-27 TABLET BY ity of tablet 00:00: MOUTH [place] 00 DAILY. Medical KEEP ON Branch FILE. OLMESARTAN 2018-10 Yes [id number] 40mg TAKE 1 [facility] 40 mg 2-27 TABLET BY ity of tablet 00:00: MOUTH [place] 00 DAILY. Medical KEEP ON Branch FILE. OLMESARTAN 2018-10 Yes [id number] 40mg TAKE 1 [facility] 40 mg 2-27 TABLET BY ity of tablet 00:00: MOUTH [place] 00 DAILY. Medical KEEP ON Branch FILE. OLMESARTAN 2018-10 Yes [id number] 40mg TAKE 1 [facility] 40 mg 2-27 TABLET BY ity of tablet 00:00: MOUTH [place] 00 DAILY. Medical KEEP ON Branch FILE. OLMESARTAN 2018-10 Yes [id number] 40mg TAKE 1 [facility] mega 40 mg 2-27 TABLET BY ity of tablet 00:00: MOUTH [place] 00 DAILY. Medical KEEP ON Branch FILE. OLMESARTAN 2018-10 Yes [id number] 40mg TAKE 1 [facility] 40 mg 2-27 TABLET BY ity of tablet 00:00: MOUTH [place] 00 DAILY. Medical KEEP ON Branch FILE. OLMESARTAN 2018-10 Yes [id number] 40mg TAKE 1 [facility] 40 mg 2-27 TABLET BY ity of tablet 00:00: MOUTH [place] 00 DAILY. Medical KEEP ON Branch FILE. OLMESARTAN 2018-10 Yes [id number] 40mg TAKE 1 Un mega 40 mg [...] s: atrial fibrillati on METOLAZONE 2018-10 Yes [id number] 5mg TAKE 1 [facility] mega 5 mg tablet 2-09 TABLET BY ity of 00:00: MOUTH [place] 00 WEEKLY. Medical TAKE 30 Branch MINUTES BEFORE FUROSEMIDE . METOLAZONE 2018-10 Yes [id number] 5mg TAKE 1 Un mega 5 mg tablet 2-09 TABLET BY ity of 00:00: MOUTH [place] 00 WEEKLY. Medical TAKE 30 Branch MINUTES BEFORE FUROSEMIDE . METOLAZONE 2018-10 Yes [id number] 5mg TAKE 1 Un mega 5 mg tablet 2-09 TABLET BY ity of 00:00: MOUTH [place] 00 WEEKLY. Medical TAKE 30 Branch MINUTES BEFORE FUROSEMIDE . METOLAZONE 2018-10 Yes [id number] 5mg TAKE 1 Un mega 5 mg tablet 2-09 TABLET BY ity of 00:00: MOUTH [place] 00 WEEKLY. Medical TAKE 30 Branch MINUTES BEFORE FUROSEMIDE . METOLAZONE 2018-10 Yes [id number] 5mg TAKE 1 Un mega 5 mg tablet 2-09 TABLET BY ity of 00:00: MOUTH [place] 00 WEEKLY. Medical TAKE 30 Branch MINUTES BEFORE FUROSEMIDE . METOLAZONE 2018-10 Yes [id number] 5mg TAKE 1 Un mega 5 mg tablet 2-09 TABLET BY ity of 00:00: MOUTH [place] 00 WEEKLY. Medical TAKE 30 Branch MINUTES BEFORE FUROSEMIDE . METOLAZONE 2018-10 Yes [id number] 5mg TAKE 1 Un mega 5 mg tablet 2-09 TABLET BY ity of 00:00: MOUTH [place] WEEKLY. Medical TAKE 30 Branch MINUTES BEFORE FUROSEMIDE . METOLAZONE 2018-10 Yes [id number] 5mg TAKE 1 Un mega 5 mg tablet 2-09 TABLET BY ity of 00:00: MOUTH [place] 00 WEEKLY. Medical TAKE 30 Branch MINUTES BEFORE FUROSEMIDE . METOLAZONE 2018-10 Yes [id number] 5mg TAKE 1 Un mega 5 mg tablet 2-09 TABLET BY ity of 00:00: MOUTH [place] 00 WEEKLY. Medical TAKE 30 Branch MINUTES BEFORE FUROSEMIDE . METOLAZONE 2018-10 Yes [id number] 5mg TAKE 1 Un mega 5 mg tablet 2-09 TABLET BY ity of 00:00: MOUTH [place] 00 WEEKLY. Medical TAKE 30 Branch MINUTES BEFORE FUROSEMIDE . METOLAZONE 2018-10 Yes [id number] 5mg TAKE 1 Un mega 5 mg tablet 2-09 TABLET BY ity of 00:00: MOUTH [place] 00 WEEKLY. Medical TAKE 30 Branch MINUTES BEFORE FUROSEMIDE . METOLAZONE 2018-10 Yes [id number] 5mg TAKE 1 Un mega 5 mg tablet 2-09 TABLET BY ity of 00:00: MOUTH [place] 00 WEEKLY. Medical TAKE 30 Branch MINUTES BEFORE FUROSEMIDE . METOLAZONE 2018-10 Yes [id number] 5mg TAKE 1 Un mega 5 mg tablet 2-09 TABLET BY ity of 00:00: MOUTH [place] 00 WEEKLY. Medical TAKE 30 Branch MINUTES BEFORE FUROSEMIDE . METOLAZONE 2018-10 Yes [id number] 5mg TAKE 1 Un mega 5 mg [...] Medical KEEP ON Branch FILE. DULOXETINE 2018-10 2020- No 20mg TAKE 1 Univ ers [...] 7-11 mouth. ity of ITAMIN D3 16:07: [place] (CALTRATE 35 Medical 600 + D Branch ORAL) CALCIUM 2019-0 Yes Take by Univer s CARBONATE/V 7-11 mouth. ity of ITAMIN D3 16:07: [place] (CALTRATE 35 Medical 600 + D Branch ORAL) CALCIUM 2019-0 Yes Take by Univer s CARBONATE/V 7-11 mouth. ity of ITAMIN D3 16:07: [place] (CALTRATE 35 Medical 600 + D Branch ORAL) CALCIUM 2019-0 Yes Take by Univer s CARBONATE/V 7-11 mouth. ity of ITAMIN D3 16:07: [place] (CALTRATE 35 Medical 600 + D Branch ORAL) CALCIUM 2019-0 Yes Take by Univer s CARBONATE/V 7-11 mouth. ity of ITAMIN D3 16:07: [place] (CALTRATE 35 Medical 600 + D Branch ORAL) CALCIUM 2019-0 Yes Take by Univer s CARBONATE/V 7-11 mouth. ity of ITAMIN D3 16:07: [place] (CALTRATE 35 Medical 600 + D Branch ORAL) CALCIUM 2019-0 Yes Take by Univer s CARBONATE/V 7-11 mouth. ity of ITAMIN D3 16:07: [place] (CALTRATE 35 Medical 600 + D Branch ORAL) CALCIUM 2019-0 Yes Take by Univer s CARBONATE/V 7-11 mouth. ity of ITAMIN D3 16:07: [place] (CALTRATE 35 Medical 600 + D Branch ORAL) CALCIUM 2019-0 Yes Take by Univer s CARBONATE/V 7-11 mouth. ity of ITAMIN D3 16:07: [place] (CALTRATE 35 Medical 600 + D Branch ORAL) CALCIUM 2019-0 Yes Take by Univer s CARBONATE/V 7-11 mouth. ity of ITAMIN D3 16:07: [place] (CALTRATE 35 Medical 600 + D Branch ORAL) CALCIUM 2019-0 Yes Take by Univer s CARBONATE/V 7-11 mouth. ity of ITAMIN D3 16:07: [place] (CALTRATE 35 Medical 600 + D Branch ORAL) CALCIUM 2019-0 Yes Take by Univer s CARBONATE/V 7-11 mouth. ity of ITAMIN D3 16:07: [place] (CALTRATE 35 Medical 600 + D Branch ORAL) CALCIUM 2019-0 Yes Take by Univer s CARBONATE/V 7-11 mouth. ity of ITAMIN D3 16:07: [place] (CALTRATE 35 Medical 600 + D Branch ORAL) CALCIUM 2019-0 Yes Take by Univer s CARBONATE/V 7-11 mouth. ity of ITAMIN D3 16:07: [place] (CALTRATE 35 Medical 600 + D Branch ORAL) CALCIUM 2019-0 Yes Take by Univer s CARBONATE/V 7-11 mouth. ity of ITAMIN D3 16:07: [place] (CALTRATE 35 Medical 600 + D Branch ORAL) CALCIUM Yes Take by [employer] CARBONATE/V 7-11 mouth. ity of ITAMIN D3 16:07: [place] (CALTRATE 35 Medical 600 + D Branch ORAL) brimonidine Yes 1[drp] Place 1 U nivers tartrate 11 Drop in ity of (ALPHAGAN P 11:31: each eye 3 [place] OPHTHALMIC) 49 (three) Medic al times Branch daily as needed (eye dryness). CALCIUM Yes Take by [employer] CARBONATE/V 7-11 mouth. ity of ITAMIN D3 11:07: [place] (CALTRATE 35 Medical 600 + D Branch ORAL) vit Yes [id number] 1{capsu Take 1 U nivers C,E-Zn-mercedes 7-11 [id number] le} capsule by ity of r-lutein-ze 00:00: mouth 2 [place] 00 (two) Medical (PRESERVISI times Branch ON AREDS-2) daily. 250-200-40- 1 mg-unit-mg- mg Cap vit Yes [id number] 1{capsu Take 1 U nivers C,E-Zn-mercedes 7-11 [id number] le} capsule by ity of r-lutein-ze 00:00: mouth 2 [place] 00 (two) Medical (PRESERVISI times Branch ON AREDS-2) daily. 250-200-40- 1 mg-unit-mg- mg Cap vit Yes [id number] 1{capsu Take 1 U nivers C,E-Zn-mercedes 7-11 [id number] le} capsule by ity of r-lutein-ze 00:00: mouth 2 [place] 00 (two) Medical (PRESERVISI times Branch ON AREDS-2) daily. 250-200-40- 1 mg-unit-mg- mg Cap vit Yes [id number] 1{capsu Take 1 U nivers C,E-Zn-mercedes 7-11 [id number] le} capsule by ity of r-lutein-ze 00:00: mouth 2 [place] 00 (two) Medical (PRESERVISI times Branch ON AREDS-2) daily. 250-200-40- 1 mg-unit-mg- mg Cap vit 2019-0 Yes [id number] 1{capsu Take 1 U nivers C,E-Zn-mercedes 7-11 [id number] le} capsule by ity of r-lutein-ze 00:00: mouth 2 [place] 00 (two) Medical (PRESERVISI times Branch ON AREDS-2) daily. 250-200-40- 1 mg-unit-mg- mg Cap vit 2019-0 Yes [id number] 1{capsu Take 1 U nivers C,E-Zn-mercedes 7-11 [id number] le} capsule by ity of r-lutein-ze 00:00: mouth 2 [place] 00 (two) Medical (PRESERVISI times Branch ON AREDS-2) daily. 250-200-40- 1 mg-unit-mg- mg Cap vit 2018-0 Yes [id number] 1{capsu Take 1 U nivers C,E-Zn-mercedes 7-11 [id number] le} capsule by ity of r-lutein-ze 00:00: mouth 2 [place] 00 (two) Medical (PRESERVISI times Branch ON AREDS-2) daily. 250-200-40- 1 mg-unit-mg- mg Cap vit 2018-0 Yes [id number] 1{capsu Take 1 U nivers C,E-Zn-mercedes 7-11 [id number] le} capsule by ity of r-lutein-ze 00:00: mouth 2 [place] 00 (two) Medical (PRESERVISI times Branch ON AREDS-2) daily. 250-200-40- 1 mg-unit-mg- mg Cap vit 2019-0 Yes [id number] 1{capsu Take 1 U nivers C,E-Zn-mercedes 7-11 [id number] le} capsule by ity of r-lutein-ze 00:00: mouth 2 [place] 00 (two) Medical (PRESERVISI times Branch ON AREDS-2) daily. 250-200-40- 1 mg-unit-mg- mg Cap vit 2019-0 Yes [id number] 1{capsu Take 1 U nivers C,E-Zn-mercedes 7-11 [id number] le} capsule by ity of r-lutein-ze 00:00: mouth 2 [place] 00 (two) Medical (PRESERVISI times Branch ON AREDS-2) daily. 250-200-40- 1 mg-unit-mg- mg Cap vit 2019-0 Yes [id number] 1{capsu Take 1 U nivers C,E-Zn-mercedes 7-11 [id number] le} capsule by ity of r-lutein-ze 00:00: mouth 2 [place] 00 (two) Medical (PRESERVISI times Branch ON AREDS-2) daily. 250-200-40- 1 mg-unit-mg- mg Cap vit 2019-0 Yes [id number] 1{capsu Take 1 U nivers C,E-Zn-mercedes 7-11 [id number] le} capsule by ity of r-lutein-ze 00:00: mouth 2 [place] 00 (two) Medical (PRESERVISI times Branch ON AREDS-2) daily. 250-200-40- 1 mg-unit-mg- mg Cap vit 2019-0 Yes [id number] 1{capsu Take 1 U nivers C,E-Zn-mercedes 7-11 [id number] le} capsule by ity of r-lutein-ze 00:00: mouth 2 [place] 00 (two) Medical (PRESERVISI times Branch ON AREDS-2) daily. 250-200-40- 1 mg-unit-mg- mg Cap vit 2019-0 Yes [id number] 1{capsu Take 1 U nivers C,E-Zn-mercedes 7-11 [id number] le} capsule by ity of r-lutein-ze 00:00: mouth 2 [place] 00 (two) Medical (PRESERVISI times Branch ON AREDS-2) daily. 250-200-40- 1 mg-unit-mg- mg Cap vit 2019-0 Yes [id number] 1{capsu Take 1 U nivers C,E-Zn-mercedes 7-11 [id number] le} capsule by ity of r-lutein-ze 00:00: mouth 2 [place] 00 (two) Medical (PRESERVISI times Branch ON AREDS-2) daily. 250-200-40- 1 mg-unit-mg- mg Cap vit 2019-0 Yes [id number] 1{capsu Take 1 U nivers C,E-Zn-mercedes 7-11 [id number] le} capsule by ity of r-lutein-ze 00:00: mouth 2 [place] 00 (two) Medical (PRESERVISI times Branch ON AREDS-2) daily. 250-200-40- 1 mg-unit-mg- mg Cap vit 2019-0 Yes [id number] 1{capsu Take 1 U nivers C,E-Zn-mercedes 7-11 [id number] le} capsule by ity of r-lutein-ze 00:00: mouth 2 [place] 00 (two) Medical (PRESERVISI times Branch ON AREDS-2) daily. 250-200-40- 1 mg-unit-mg- mg Cap furosemide Yes [id number] 80mg Take 2 Un mega (LASIX) 40 2-20 tablets by ity of mg tablet 00:00: mouth [place] 00 every Medical morning Branch and evening. Keep on file. atorvastati Yes [id number] 40mg Take 1 Univers n 40 mg 2-20 tablet by ity of tablet 00:00: mouth at [place] 00 bedtime. Medical Keep on Branch file. furosemide Yes [id number] 80mg Take 2 Un mega (LASIX) 40 2-20 tablets by ity of mg tablet 00:00: mouth [place] 00 every Medical morning Branch and evening. Keep on file. atorvastati Yes [id number] 40mg Take 1 Univers n 40 mg 2-20 tablet by ity of tablet 00:00: mouth at [place] 00 bedtime. Medical Keep on Branch file. furosemide Yes [id number] 80mg Take 2 Un mega (LASIX) 40 2-20 tablets by ity of mg tablet 00:00: mouth [place] 00 every Medical morning Branch and evening. Keep on file. atorvastati Yes [id number] 40mg Take 1 Univers n 40 mg 2-20 tablet by ity of tablet 00:00: mouth at [place] 00 bedtime. Medical Keep on Branch file. furosemide Yes [id number] 80mg Take 2 Un mega (LASIX) 40 2-20 tablets by ity of mg tablet 00:00: mouth [place] 00 every Medical morning Branch and evening. Keep on file. atorvastati Yes [id number] 40mg Take 1 Univers n 40 mg 2-20 tablet by ity of tablet 00:00: mouth at [place] 00 bedtime. Medical Keep on Branch file. furosemide 2018-0 Yes [id number] 80mg Take 2 Un mega (LASIX) 40 2-20 tablets by ity of mg tablet 00:00: mouth [place] 00 every Medical morning Branch and evening. Keep on file. atorvastati 2018-0 Yes [id number] 40mg Take 1 Univers n 40 mg 2-20 tablet by ity of tablet 00:00: mouth at [place] 00 bedtime. Medical Keep on Branch file. furosemide 0 Yes [id number] 80mg Take 2 Un mega (LASIX) 40 2-20 tablets by ity of mg tablet 00:00: mouth [place] 00 every Medical morning Branch and evening. Keep on file. furosemide 0 Yes [id number] 80mg Take 2 Un mega (LASIX) 40 2-20 tablets by ity of mg tablet 00:00: mouth [place] 00 every Medical morning Branch and evening. Keep on file. atorvastati 2018-0 Yes [id number] 40mg Take 1 Univers n 40 mg 2-20 tablet by ity of tablet 00:00: mouth at [place] 00 bedtime. Medical Keep on Branch file. atorvastati 2018-0 Yes [id number] 40mg Take 1 Univers n 40 mg 2-20 tablet by ity of tablet 00:00: mouth at [place] 00 bedtime. Medical Keep on Branch file. metOLazone 2018-0 Yes [id number] 5mg Take 1 Un mega 5 mg tablet 2-20 tablet by ity of 00:00: mouth [place] 00 weekly. Medical Take 30 Branch minutes before furosemide . furosemide 2018-0 Yes [id number] 80mg Take 2 Un mega (LASIX) 40 2-20 tablets by ity of mg tablet 00:00: mouth [place] 00 every Medical morning Branch and evening. Keep on file. atorvastati 2018-0 Yes [id number] 40mg Take 1 Univers n 40 mg 2-20 tablet by ity of tablet 00:00: mouth at [place] 00 bedtime. Medical Keep on Branch file. furosemide 2018-0 Yes [id number] 80mg Take 2 Un mega (LASIX) 40 2-20 tablets by ity of mg tablet 00:00: mouth [place] 00 every Medical morning Branch and evening. Keep on file. atorvastati 2019-0 Yes [id number] 40mg Take 1 Univers n 40 mg 2-20 tablet by ity of tablet 00:00: mouth at [place] 00 bedtime. Medical Keep on Branch file. furosemide 2019-0 Yes [id number] 80mg Take 2 Un mega (LASIX) 40 2-20 tablets by ity of mg tablet 00:00: mouth [place] 00 every Medical morning Branch and evening. Keep on file. atorvastati 2019-0 Yes [id number] 40mg Take 1 Univers n 40 mg 2-20 tablet by ity of tablet 00:00: mouth at [place] 00 bedtime. Medical Keep on Branch file. furosemide 2018-0 Yes [id number] 80mg Take 2 Un mega (LASIX) 40 2-20 tablets by ity of mg tablet 00:00: mouth [place] 00 every Medical morning Branch and evening. Keep on file. atorvastati 2018- Yes [id number] 40mg Take 1 Univers n 40 mg 2-20 tablet by ity of tablet 00:00: mouth at [place] 00 bedtime. Medical Keep on Branch file. furosemide 2018-0 Yes [id number] 80mg Take 2 Un mega (LASIX) 40 2-20 tablets by ity of mg tablet 00:00: mouth [place] 00 every Medical morning Branch and evening. Keep on file. atorvastati 2018-0 Yes [id number] 40mg Take 1 Univers n 40 mg 2-20 tablet by ity of tablet 00:00: mouth at [place] 00 bedtime. Medical Keep on Branch file. furosemide 2019-0 Yes [id number] 80mg Take 2 Un mega (LASIX) 40 2-20 tablets by ity of mg tablet 00:00: mouth [place] 00 every Medical morning Branch and evening. Keep on file. atorvastati 2019-0 Yes [id number] 40mg Take 1 Univers n 40 mg 2-20 tablet by ity of tablet 00:00: mouth at [place] 00 bedtime. Medical Keep on Branch file. furosemide 2019-0 Yes [id number] 80mg Take 2 Un mega (LASIX) 40 2-20 tablets by ity of mg tablet 00:00: mouth [place] 00 every Medical morning Branch and evening. Keep on file. atorvastati 2019-0 Yes [id number] 40mg Take 1 Univers n 40 mg 2-20 tablet by ity of tablet 00:00: mouth at [place] 00 bedtime. Medical Keep on Branch file. furosemide Yes [id number] 80mg Take 2 Un mega (LASIX) 40 2-20 tablets by ity of mg tablet 00:00: mouth [place] 00 every Medical morning Branch and evening. Keep on file. atorvastati Yes [id number] 40mg Take 1 Univers n 40 mg 2-20 tablet by ity of tablet 00:00: mouth at [place] 00 bedtime. Medical Keep on Branch file. metOLazone Yes [id number] 5mg Take 1 Un mega 5 mg tablet 2-20 tablet by ity of 00:00: mouth [place] 00 weekly. Medical Take 30 Branch minutes before furosemide . furosemide Yes [id number] 80mg Take 2 Un mega (LASIX) 40 2-20 tablets by ity of mg tablet 00:00: mouth [place] 00 every Medical morning Branch and evening. Keep on file. atorvastati Yes [id number] 40mg Take 1 Univers n 40 mg 2-20 tablet by ity of tablet 00:00: mouth at [place] 00 bedtime. Medical Keep on Branch file. metOLazone Yes [id number] 5mg Take 1 Un mega 5 mg tablet 2-20 tablet by ity of 00:00: mouth [place] 00 weekly. Medical Take 30 Branch minutes before furosemide . furosemide Yes [id number] 80mg Take 2 Un mega (LASIX) 40 2-20 tablets by ity of mg tablet 00:00: mouth [place] 00 every Medical morning Branch and evening. Keep on file. atorvastati Yes [id number] 40mg Take 1 Univers n 40 mg 2-20 tablet by ity of tablet 00:00: mouth at [place] 00 bedtime. Medical Keep on Branch file. metoprolol 2017-10 Yes [id number] 100mg Take 1 Univers tartrate 2-27 tablet by ity of 100 mg 00:00: mouth 2 [place] tablet 00 (two) Medical times Branch daily. metoprolol 2017-10 Yes [id number] 100mg Take 1 Univers tartrate 2-27 tablet by ity of 100 mg 00:00: mouth 2 [place] tablet 00 (two) Medical times Branch daily. metoprolol 2017-10 Yes [id number] 100mg Take 1 Univers tartrate 2-27 tablet by ity of 100 mg 00:00: mouth 2 [place] tablet 00 (two) Medical times Branch daily. metoprolol 2017-10 Yes [id number] 100mg Take 1 Univers tartrate 2-27 tablet by ity of 100 mg 00:00: mouth 2 [place] tablet 00 (two) Medical times Branch daily. metoprolol 2017-10 Yes [id number] 100mg Take 1 Univers tartrate 2-27 tablet by ity of 100 mg 00:00: mouth 2 [place] tablet 00 (two) Medical times Branch daily. metoprolol 2017-10 Yes [id number] 100mg Take 1 Univers tartrate 2-27 tablet by ity of 100 mg 00:00: mouth 2 [place] tablet 00 (two) Medical times Branch daily. metoprolol 2017-10 Yes [id number] 100mg Take 1 Univers tartrate 2-27 tablet by ity of 100 mg 00:00: mouth 2 [place] tablet 00 (two) Medical times Branch daily. metoprolol 2017-10 Yes [id number] 100mg Take 1 Univers tartrate 2-27 tablet by ity of 100 mg 00:00: mouth 2 [place] tablet 00 (two) Medical times Branch daily. metoprolol 2017-10 Yes [id number] 100mg Take 1 Univers tartrate 2-27 tablet by ity of 100 mg 00:00: mouth 2 [place] tablet 00 (two) Medical times Branch daily. metoprolol 2017-10 Yes [id number] 100mg Take 1 Univers tartrate 2-27 tablet by ity of 100 mg 00:00: mouth 2 [place] tablet 00 (two) Medical times Branch daily. metoprolol 2017-10 2020- No [id number] 100mg Take 1 Univers tartrate 2-27 03-16 [...] MG 14:51: mouth Medical tablet 07 daily. Center olmesartan- Yes 1{tbl} QD Take [address] [facility] [address] hydrochloro 8-04 tablet by [place] [facility] - thiazide 14:51: mouth Medical (BENICAR 07 daily. [place] HCT) 40-25 mg per tablet rivaroxaban Yes 20mg QD Take [address] [facility] (XARELTO) 8-04 by mouth [facility] - 20 mg Tab 14:51: daily. Medica l tablet 07 [place] Alphagan P Alphagan P Yes Carlos not [...] Immunizations Ordered Filled Immunization Date Status Comments [facility] e Immunization Name Name SARS-COV-2 COVID-19 2020-11-14 Completed Unive rsity of MODERNA VACCINE 00:00:[address] [facility] Branch SARS-COV-2 COVID-19 2020-10-17 Completed Unive rsity of MODERNA VACCINE 00:00:[address] [facility] Branch PPD (TB) 2019-05-12 Completed University of 00:00:00 [facility] Pneumococcal 2019-05-12 Completed University o f Polysaccharide, 00:00:00 [facility] ical PPSV23 (PNEUMOVAX) Branch PPD (TB) 2019-05-12 Completed University of 00:00:00 [facility] Pneumococcal 2019-05-12 Completed University o f Polysaccharide, 00:00:00 [facility] ical PPSV23 (PNEUMOVAX) Branch PPD (TB) 2019-05-12 Completed University of 00:00:00 [facility] Pneumococcal 2019-05-12 Completed University o f Polysaccharide, 00:00:00 [facility] ical PPSV23 (PNEUMOVAX) Branch PPD (TB) 2019-05-12 Completed University of 00:00:00 [facility] Pneumococcal 2019-05-12 Completed University o f Polysaccharide, 00:00:00 [facility] ical PPSV23 (PNEUMOVAX) Branch PPD (TB) 2019-05-12 Completed University of 00:00:00 [facility] Pneumococcal 2019-05-12 Completed University o f Polysaccharide, 00:00:00 [facility] ical PPSV23 (PNEUMOVAX) Branch PPD (TB) 2019-05-12 Completed University of 00:00:00 [facility] Pneumococcal 2019-05-12 Completed University o f Polysaccharide, 00:00:00 [facility] ical PPSV23 (PNEUMOVAX) Branch PPD (TB) 2019-05-12 Completed [facility] 00:00:00 [facility] Pneumococcal 2019-05-12 Completed University o f Polysaccharide, 00:00:00 [facility] ical PPSV23 (PNEUMOVAX) Branch PPD (TB) 2019-05-12 Completed University of 00:00:00 [facility] Pneumococcal 2019-05-12 Completed University o f Polysaccharide, 00:00:00 [facility] ical PPSV23 (PNEUMOVAX) Branch PPD (TB) 2019-05-12 Completed University of 00:00:00 [facility] Pneumococcal 2019-05-12 Completed University o f Polysaccharide, 00:00:00 [facility] ical PPSV23 (PNEUMOVAX) Branch PPD (TB) 2019-05-12 Completed University of 00:00:00 [facility] Pneumococcal 2019-05-12 Completed University o f Polysaccharide, 00:00:00 [facility] PPSV23 (PNEUMOVAX) Branch PPD (TB) 2019-05-12 Completed University of 00:00:00 [facility] Pneumococcal 2019-05-12 Completed University o f Polysaccharide, 00:00:00 [facility] PPSV23 (PNEUMOVAX) Branch PPD (TB) 2019-05-12 Completed University of 00:00:00 [facility] Pneumococcal 2019-05-12 Completed University o f Polysaccharide, 00:00:00 [facility] PPSV23 (PNEUMOVAX) Branch PPD (TB) 2019-05-12 Completed [facility] of 00:00:00 [facility] Pneumococcal 2019-05-12 Completed University o f Polysaccharide, 00:00:00 [facility] PPSV23 (PNEUMOVAX) Branch PPD (TB) 2019-05-12 Completed [facility] of 00:00:00 [facility] Pneumococcal 2019-05-12 Completed University o f Polysaccharide, 00:00:00 [facility] ical PPSV23 (PNEUMOVAX) Branch PPD (TB) 2019-05-12 Completed University of 00:00:00 [facility] Pneumococcal 2019-05-12 Completed University o f Polysaccharide, 00:00:00 [facility] ical PPSV23 (PNEUMOVAX) Branch PPD (TB) 2019-05-12 Completed University of 00:00:00 [facility] Pneumococcal 2019-05-12 Completed University o f Polysaccharide, 00:00:00 [facility] ical PPSV23 (PNEUMOVAX) Branch PPD (TB) 2019-05-12 Completed University of 00:00:00 [facility] Pneumococcal 2019-05-12 Completed University o f Polysaccharide, 00:00:00 [facility] ical PPSV23 (PNEUMOVAX) Branch Influenza Virus 2018-07-14 Completed Universit y of Vaccine 00:00:00 [facility] Influenza Virus 2018-07-14 Completed Universit y of Vaccine 00:00:00 [facility] Influenza Virus 2018-07-14 Completed Universit y of Vaccine 00:00:00 [facility] Influenza Virus 2018-07-14 Completed Universit y of Vaccine 00:00:00 [facility] Influenza Virus 2018-07-14 Completed Universit y of Vaccine 00:00:00 [facility] Influenza Virus 2018-07-14 Completed Universit y of Vaccine 00:00:00 [facility] Influenza Virus 2018-07-14 Completed Universit y of Vaccine 00:00:00 [facility] Influenza Virus 2018-07-14 Completed Universit y of Vaccine 00:00:00 [facility] Influenza Virus 2018-07-14 Completed Universit y of Vaccine 00:00:00 [facility] Influenza Virus 2018-07-14 Completed Universit y of Vaccine 00:00:00 [facility] Influenza Virus 2018-07-14 Completed Universit y of Vaccine 00:00:00 [facility] Influenza Virus 2018-07-14 Completed Universit y of Vaccine 00:00:00 [facility] Influenza Virus 2018-07-14 Completed Universit y of Vaccine 00:00:00 [facility] Influenza Virus 2018-07-14 Completed Universit y of Vaccine 00:00:00 [facility] Influenza Virus 2018-07-14 Completed Universit y of Vaccine 00:00:00 [facility] Influenza Virus 2018-07-14 Completed Universit y of Vaccine 00:00:00 [facility] Influenza Virus 2018-07-14 Completed Universit y of Vaccine 00:00:00 [facility] Influenza High Dose 2017-07-27 Completed Unive rsity of 00:00:00 [facility] Influenza High Dose 2017-07-27 Completed Unive rsity of 00:00:00 [facility] Influenza High Dose 2017-07-27 Completed Unive rsity of 00:00:00 [facility] Influenza High Dose 2017-07-27 Completed Unive rsity of 00:00:00 [facility] Influenza High Dose 2017-07-27 Completed Unive rsity of 00:00:00 [facility] Influenza High Dose 2017-07-27 Completed Unive rsity of 00:00:00 [facility] Influenza High Dose 2017-07-27 Completed Unive rsity of 00:00:00 [facility] Influenza High Dose 2017-07-27 Completed Unive rsity of 00:00:00 [facility] Influenza High Dose 2017-07-27 Completed Unive rsity of 00:00:00 [facility] Influenza High Dose 2017-07-27 Completed Unive rsity of 00:00:00 [facility] Influenza High Dose 2017-07-27 Completed Unive rsity of 00:00:00 [facility] Influenza High Dose 2017-07-27 Completed Unive rsity of 00:00:00 [facility] Influenza High Dose 2017-07-27 Completed Unive rsity of 00:00:00 [facility] Influenza High Dose 2017-07-27 Completed Unive rsity of 00:00:00 [facility] Influenza High Dose 2017-07-27 Completed Unive rsity of 00:00:00 [facility] Influenza High Dose 2017-07-27 Completed Unive rsity of 00:00:00 [facility] Influenza High Dose 2017-07-27 Completed Unive rsity of 00:00:00 [facility] DTAP 2016-09-11 Completed University of 00:00:00 [facility] Pneumococcal 13 2016-09-11 Completed Universit y of Conjugate, PCV13 00:00:00 [facility] dical (Prevnar 13) Branch DTAP 2016-09-11 Completed University of 00:00:00 [facility] Pneumococcal 13 2016-09-11 Completed Universit y of Conjugate, PCV13 00:00:00 [facility] dical (Prevnar 13) Branch DTAP 2016-09-11 Completed University of 00:00:00 [facility] Pneumococcal 13 2016-09-11 Completed Universit y of Conjugate, PCV13 00:00:00 [facility] dical (Prevnar 13) Branch DTAP 2016-09-11 Completed University of 00:00:00 [facility] Pneumococcal 13 2016-09-11 Completed Universit y of Conjugate, PCV13 00:00:00 [facility] dical (Prevnar 13) Branch DTAP 2016-09-11 Completed University of 00:00:00 [facility] Pneumococcal 13 2016-09-11 Completed Universit y of Conjugate, PCV13 00:00:00 [facility] dical (Prevnar 13) Branch DTAP 2016-09-11 Completed University of 00:00:00 [facility] Pneumococcal 13 2016-09-11 Completed Universit y of Conjugate, PCV13 00:00:00 [facility] dical (Prevnar 13) Branch DTAP 2016-09-11 Completed University of 00:00:00 [facility] Pneumococcal 13 2016-09-11 Completed Universit y of Conjugate, PCV13 00:00:00 [facility] dical (Prevnar 13) Branch DTAP 2016-09-11 Completed University of 00:00:00 [facility] Pneumococcal 13 2016-09-11 Completed Universit y of Conjugate, PCV13 00:00:00 [facility] dical (Prevnar 13) Branch DTAP 2016-09-11 Completed University of 00:00:00 [facility] Pneumococcal 13 2016-09-11 Completed Universit y of Conjugate, PCV13 00:00:00 [facility] dical (Prevnar 13) Branch DTAP 2016-09-11 Completed University of 00:00:00 [facility] Pneumococcal 13 2016-09-11 Completed Universit y of Conjugate, PCV13 00:00:00 [facility] dical (Prevnar 13) Branch DTAP 2016-09-11 Completed University of 00:00:00 [facility] Pneumococcal 13 2016-09-11 Completed Universit y of Conjugate, PCV13 00:00:00 [facility] dical (Prevnar 13) Branch DTAP 2016-09-11 Completed University of 00:00:00 [facility] Pneumococcal 13 2016-09-11 Completed Universit y of Conjugate, PCV13 00:00:00 [facility] dical (Prevnar 13) Branch DTAP 2016-09-11 Completed University of 00:00:00 [facility] Pneumococcal 13 2016-09-11 Completed Universit y of Conjugate, PCV13 00:00:00 [facility] dical (Prevnar 13) Branch DTAP 2016-09-11 Completed University of 00:00:00 [facility] Pneumococcal 13 2016-09-11 Completed Universit y of Conjugate, PCV13 00:00:00 [facility] dical (Prevnar 13) Branch DTAP 2016-09-11 Completed University of 00:00:00 [facility] Pneumococcal 13 2016-09-11 Completed Universit y of Conjugate, PCV13 00:00:00 [facility] dical (Prevnar 13) Branch DTAP 2016-09-11 Completed University of 00:00:00 [facility] Pneumococcal 13 2016-09-11 Completed Universit y of Conjugate, PCV13 00:00:00 [facility] dical (Prevnar 13) Branch DTAP 2016-09-11 Completed University of 00:00:00 [facility] Pneumococcal 13 2016-09-11 Completed Universit y of Conjugate, PCV13 00:00:00 [facility] dical (Prevnar 13) Branch Influenza High Dose 2016-07-02 Completed Unive rsity of 00:00:00 [facility] Influenza High Dose 2016-07-02 Completed Unive rsity of 00:00:00 [facility] Influenza High Dose 2016-07-02 Completed Unive rsity of 00:00:00 [facility] Influenza High Dose 2016-07-02 Completed Unive rsity of 00:00:00 [facility] Influenza High Dose 2016-07-02 Completed Unive rsity of 00:00:00 [facility] Influenza High Dose 2016-07-02 Completed Unive rsity of 00:00:00 [facility] Influenza High Dose 2016-07-02 Completed Unive rsity of 00:00:00 [facility] Influenza High Dose 2016-07-02 Completed Unive rsity of 00:00:00 [facility] Influenza High Dose 2016-07-02 Completed Unive rsity of 00:00:00 [facility] Influenza High Dose 2016-07-02 Completed Unive rsity of 00:00:00 [facility] Influenza High Dose 2016-07-02 Completed Unive rsity of 00:00:00 [facility] Influenza High Dose 2016-07-02 Completed Unive rsity of 00:00:00 [facility] Influenza High Dose 2016-07-02 Completed Unive rsity of 00:00:00 [facility] Influenza High Dose 2016-07-02 Completed Unive rsity of 00:00:00 [facility] Influenza High Dose 2016-07-02 Completed Unive rsity of 00:00:00 [facility] Influenza High Dose 2016-07-02 Completed Unive rsity of 00:00:00 [facility] Influenza High Dose 2016-07-02 Completed Unive rsity of 00:00:00 [facility] Zoster(Zostavax)( 2013-09-22 Completed Unive rsity of ingles) 00:00:00 [facility] Zoster(Zostavax)( 2013-09-22 Completed Unive rsity of ingles) 00:00:00 [facility] Zoster(Zostavax)( 2013-09-22 Completed Unive rsity of ingles) 00:00:00 [facility] Zoster(Zostavax)( 2013-09-22 Completed Unive rsity of ingles) 00:00:00 [facility] Zoster(Zostavax)( 2013-09-22 Completed Unive rsity of ingles) 00:00:00 [facility] Zoster(Zostavax)( 2013-09-22 Completed Unive rsity of ingles) 00:00:00 [facility] Zoster(Zostavax)( 2013-09-22 Completed Unive rsity of ingles) 00:00:00 [facility] Zoster(Zostavax)( 2013-09-22 Completed Unive rsity of ingles) 00:00:00 [facility] Zoster(Zostavax)( 2013-09-22 Completed Unive rsity of ingles) 00:00:00 [facility] Zoster(Zostavax)( 2013-09-22 Completed Unive rsity of ingles) 00:00:00 [facility] Zoster(Zostavax)( 2013-09-22 Completed Unive rsity of ingles) 00:00:00 [facility] Zoster(Zostavax)( 2013-09-22 Completed Unive rsity of ingles) 00:00:00 [facility] Zoster(Zostavax)( 2013-09-22 Completed Unive rsity of ingles) 00:00:00 [facility] Zoster(Zostavax)( 2013-09-22 Completed Unive rsity of ingles) 00:00:00 [facility] Zoster(Zostavax)( 2013-09-22 Completed Unive rsity of ingles) 00:00:00 [facility] Zoster(Zostavax)( 2013-09-22 Completed Unive rsity of ingles) 00:00:00 [facility] Zoster(Zostavax)( 2013-09-22 Completed Unive rsity of ingles) 00:00:00 [facility] Vital Signs Vital Name Observation Time Observation Value Comments Source Systolic blood 2021-09-16 19:00:00 155 mm[Hg] Univer sity of pressure [facility] Diastolic blood 2021-09-16 19:00:00 57 mm[Hg] Unive rsity of pressure [facility] Heart rate 2021-09-16 19:00:00 54 /min Universi of [facility] Respiratory rate 2021-09-16 19:00:00 17 /[facility] in 2021-09-16 19:00:00 98 /min [facility] Arterial blood by [facility] Pulse oximetry Branch Body temperature 2021-09-16 17:42:00 36.72 Nicole Univ ersity of [facility] Body height 2021-09-16 17:42:00 167.6 cm [facility] Body weight 2021-09-16 17:42:00 76.204 kg [facility] BMI 2021-09-16 17:42:00 27.12 kg/m2 Universi ty of [facility] Systolic blood 2019-11-09 18:57:00 131 mm[Hg] Univer sity of pressure [facility] Diastolic blood 2019-11-09 18:57:00 81 mm[Hg] Unive rsity of pressure [facility] Heart rate 2019-11-09 18:57:00 90 /min Universi ty of [facility] Body temperature 2019-11-09 18:57:00 36.17 Nicole Univ ersity of [facility] Respiratory rate 2019-11-09 18:57:00 20 /min Univ ersity of [facility] Body height 2019-11-09 18:57:00 165.1 cm [facility] Body weight 2019-11-09 18:57:00 76.2 kg [facility] BMI 2019-11-09 18:57:00 27.96 kg/m2 Universi ty of [facility] Systolic blood 2019-11-09 18:57:00 131 mm[Hg] Univer sity of [facility] Diastolic blood 2019-11-09 18:57:00 81 mm[Hg] Unive rsity of pressure [facility] Heart rate 2019-11-09 18:57:00 90 /min [facility] Body temperature 2019-11-09 18:57:00 36.17 Nicole Univ ersity of [facility] Respiratory rate 2019-11-09 18:57:00 20 /min Univ ersity of [facility] Body height 2019-11-09 18:57:00 165.1 cm [facility] Body weight 2019-11-09 18:57:00 76.2 kg [facility] BMI 2019-11-09 18:57:00 27.96 kg/m2 Universi ty of [facility] Body temperature 2019-05-14 20:50:00 35.72 Nicole Univ ersity of [facility] Body temperature 2019-05-12 18:28:00 36.22 Nicole [facility] Body weight 2019-05-12 18:28:00 72.621 kg [facility] BMI 2019-05-12 18:28:00 25.84 kg/m2 [facility] Procedures Procedure Date / Time Performing Clinician Source Performed URINALYSIS 2021-09-16 18:12:00 Elif Andino [facility] NOTICE OF PRIVACY 2021-09-16 17:32:53 Doctor Unassigned, No [facility] PRACTICES Name [facility] CONSENT/REFUSAL FOR 2021-09-16 17:32:23 [facility], [facility] SCANNED LAB RESULTS 2019-11-09 06:01:00 [facility] 2019-05-12 19:26:19 Irma [place] [facility] PNEUMOCOCCAL VACCINE, 2019-05-12 19:26:19 Irma [place] [facility] 23-VALENT (PNEUMOVAX) [facility] anch Encounters Start End Encounter Admission Attending Care Care Encounter Source Date/Time Date/Time Type Type Clinicians Facility Department ID 2021-09-16 2021-09-16 Emergency X REAL ANDINO ERT [id number] [facility] 11:39:00 13:56:00 ELIF ruby [facility] 2021-09-16 2021-09-16 Emergency Rashad TNSAUNDRA 1.2.840.114 [id number] Univers 11:39:00 13:56:00 [id number] [phone] [facility] catherine 084 Branch 2021-09-11 2021-09-11 ambulatory [facility]MLC [facility] [id number] [facility] 2021-09-11 2021-09-11 ambulatory [facility]ML[facility] [id number] [facility] 2021-08-142021-08-14 ambulatory [facility] [id number] [facility] 2021-07-26 2021-07-26 Outpatient [facility]MLC [facility] [id number] [facility] 2021-06-29 2021-06-29 Outpatient [facility]MLC [facility] [id number] [facility] 2021-06-14 2021-06-14 Outpatient [facility]MLC [facility] [id number] [facility] 2021-04-20 2021-04-20 Outpatient [facility]MLC [facility] [id number] [facility] 2021-04-12 2021-04-12 Outpatient [facility]LMLC [facility] [id number] [facility] 2021-04-04 2021-04-04 Outpatient [facility]MLC [facility] [id number] [facility] 2021-04-03 2021-04-03 Outpatient [facility]MLC [facility] [id number] [facility] 2021-02-20 2021-02-20 Outpatient [facility]MLC [facility] [id number] [facility] 2021-01-30 2021-01-30 Outpatient [facility]MLC [facility] [id number] [facility] 2020-12-19 2020-12-19 Outpatient [facility]MLC [facility] [id number] [facility] 2020-11-14 2020-11-14 Outpatient Homer NASSAR [facility] [id number] Univers 14:30:00 14:30:00 PORTER [id number] [facility] 2020-11-14 2020-11-14 Outpatient R CESARIO, [facility] [id number] Univers 14:30:00 14:30:00 [facility] 2020-10-17 Outpatient R CESARIO, [facility] [id number] Univers 14:20:00 14:20:00 [facility] [id number] [facility] 2020-10-17 2020-10-17 Outpatient R CESARIO, [facility] [id number] Univers 14:20:00 14:20:00 PORTER [facility] 2020-10-17 2020-10-17 Outpatient R CESARIO, [facility] [id number] Univers 14:20:00 14:20:00 PORTER [facility] 2020-07-18 2020-07-18 [facility] 1.2.840.114 [id number] Univers 00:00:00 00:00:00 [facility] [id number] ity of [place] [id number] [place] Professio [phone] [address] 2020-07-18 2020-07-18 [facility] 1.2.840.114 [id number] 00:00:00 00:00:00 [facility] [id number] [place] [id number] Professio [phone] [place] [address] Office [facility] 2020-06-03 2020-06-03 [facility] 1.2.840.114 [id number] [facility] 00:00:00 00:00:00 [facility] [id number] ity of [place] [id number] [place] Professio [phone] [address] Office [facility] 2020-06-03 2020-06-03 [facility] 1.2.840.114 [id number] 00:00:00 00:00:00 Irma A [facility] [id number] [place] [id number] Professio [phone] [facility] [address] 2020-05-24 2020-05-24 Outpatient Roxanne Oliveirat [id number] [facility] 11:00:00 11:00:00 [facility] Clinics 2020-05-17 2020-05-17 Outpatient Roxanne Oliveirat [id number] [facility] [facility] 09:08:00 09:08:00 [facility] ent Clinics 2020-05-02 2020-05-02 Outpatient Roxanne Oliveirat [id number] 10:30:00 10:30:00 t [facility] 2020-03-03 2020-03-03 Refill [facility] 1.2.840.114 [id number] [facility] 00:00:00 00:00:00 Irma A [place] [id number] ity [id number] [phone] [address] 2020-03-03 2020-03-03 Refill [facility] 1.2.840.114 [id number] 00:00:00 00:00:00 Irma A [place] [id number] [place] [id number] Professio [phone] [address] 2020-03-01 2020-03-01 Telephone [facility] 1.2.840.114 [id number] [facility] 00:00:00 00:00:00 Irma A [place] [id number] [id number] [phone] [address] 2020-03-01 2020-03-01 Telephone [facility] 1.2.840.114 [id number] 00:00:00 00:00:00 Irma A [place] [id number] [place] [id number] Professio [phone] [address] 2020-02-26 2020-02-26 Refill Aditi, [facility] 1.2.840.114 [id number] [facility] 00:00:00 00:00:00 Irma A [place] [id number] [id number] [phone] [place] dic[address] 2020-02-26 2020-02-26 Refill Aditi, [facility] 1.2.840.114 [id number] 00:00:00 00:00:00 Irma A [place] [id number] [place] [id number] Professio [phone] [address] 2019-12-26 2019-12-26 Refill Aditi, [facility] 1.2.840.114 [id number] [facility] 00:00:00 00:00:00 Irma A [place] [id number] [place] [id number] [phone] [address] 2019-12-26 2019-12-26 Refill Aditi, [facility] 1.2.840.114 [id number] 00:00:00 00:00:00 Irma A [place] [id number] [place] [id number] Professio [phone] [address] 2019-12-08 2019-12-08 Telephone Dex Fair [facility] 1.2.840.114 [id number] [facility] 00:00:00 00:00:00 W SPECIALTY [id number] [id number] [phone] [address] 2019-12-08 2019-12-08 Telephone Dex Fair [facility] 1.2.840.114 [id number] 00:00:00 00:00:00 W SPECIALTY [id number] [place] [id number] [place]Y [phone] [facility] 2019-12-01 2019-12-01 Telephone SherryFormerly [facility] 1.2.842.681 [id number] [facility] 00:00:00 00:00:00 Rosario SPECIALTY [id number] [id number] [phone] [address] 2019-12-01 2019-12-01 [facility] 1.2.840.114 [id number] [facility] 00:00:00 00:00:00 Irma Enriquez [id number] [id number] [phone] [address] 2019-12-01 2019-12-01 [facility] 1.2.032.459 [id number] 00:00:00 00:00:00 Rosario SPECIALTY [id number] [place] [id number] [place] [phone] [facility] 2019-12-01 2019-12-01 [facility] 1.2.840.114 [id number] 00:00:00 00:00:00 Irma Enriquez [id number] [place] [id number] Professio [phone] [address] 2019-11-26 2019-11-26 Refaylin Pennington [facility] 1.2.840.114 [id number] [facility] 00:00:00 00:00:00 Irma Enriquez [id number] [id number] [phone] [address] 2019-11-09 2019-11-09 Office Rosario Lopez [facility] 1.2.840. 114 [id number] [facility] 12:48:32 13:48:32 Visit Dex Fair SPECIALTY [id number] [id number] [phone] [address] 2019-11-09 2019-11-09 Office Jessica [facility] 1.2.840.114 [id number] 12:48:32 13:48:32 Visit Rosario [place] [id number] [place] [id number] [place] [phone] [facility] 2019-11-09 2019-11-09 Orders Doctor AUBRIE 1.2.840.114 [id number] Univers 00:00:00 00:00:00 Only Unassigned, [place] [id number] ity of [facility] [id number] [place] as [phone] [address] 2019-11-09 2019-11-09 Orders Doctor AUBRIE 1.2.840.114 [id number] 00:00:00 00:00:00 Only Unassigned, [place] [id number] [place] [facility] [id number] [phone] 009 2019-05-14 2019-05-14 Nurse Nurse, [facility] 1.2.840.114 [id number] Univers 15:28:41 15:43:41 Visit Irma [place] 350.1. 13.10 [id number] [phone] [place] dical formerly [facility] 044 [facility] 2019-05-14 2019-05-14 Juan Pennington [facility] [id number] Univers 00:00:00 00:00:00 (Out) Irma Enriquez [id number] [phone] vignesh flores 231 [facility] 2019-05-12 2019-05-12 Nurse Nurse, [facility] [id number] [facility] 13:01:21 15:09:23 Visit Irma Pennington 350.1. 13.10 [phone] [place] dical [place] 044 [facility] 2019-03-26 2019-03-26 [facility] [id number] [facility] [address] 08:00:00 08:00:00 [facility] 2019-01-12 2019-01-12 [facility] [id number] [facility] [address] 11:00:00 11:00:00 [facility] Results Test Description Test Time Test Comments Results Result Comments Source HEMOGLOBIN A1C 2017-05-16 21:48:00 Test Item Value Reference Range Interpretation Comme nts HEMOGLOBIN A1C (BEAKER) (test code = 368) 6.2 % 4.3-6.1 H [id number] 07:10:00 Test Item Value Reference Range Interpretation Comments MAGNESIUM (BEAKER) (test code = 1.9 mg/dL 1.6-2.6 627) BASIC METABOLIC [id number] 07:10:00 Test Item Value Reference Range Interpretation [...] WBC 0-0 (BEAKER) (test code = 413) [id number] 05:45:00 Test Item Value Reference Range Interpretation Comments MAGNESIUM (BEAKER) 2.3 mg/dL 1.6-2.6 Specimen moderately (test code = 627) hemolyzed COMPREHENSIVE METABOLIC [id number] 05:45:00 Test Item Value Reference Range Interpretation [...] S NOT APPLICABLE FOR DIALYSIS PATIEN TS. [id number] 11:50:00 Test Item Value Reference Range Interpretation Comments RPR SCREEN (BEAKER) (test code = Nonreactive Nonreactive 420) BASIC METABOLIC [id number] 06:28:00 Test Item Value Reference Range Interpretation [...] NOT APPLICABLE FOR DIALYSIS PATIEN TS. FastingLIPID [id number] 06:28:00 Test Item Value Reference Range Interpretation [...] 160-189 Very High >=190 FastingVITAMIN B12 AND [id number] 04:10:00 Test Item Value Reference Range Interpretation Comments VITAMIN B12 (BEAKER) (test code = 514 pg/mL 213-816 774) FOLATE (BEAKER) (test code = 362) > ng/mL >=7.0 Effective 08/31/2014: Folate Reference Range ChangeNew: >=7.0 Previous: >=5.4TSH/FREE T4 IF [id number] 02:52:00 Test Item Value Reference Range Interpretation Comments THYROID STIMULATING HORMONE 2.55 uIU/mL 0.35-4.94 (BEAKER) (test code = 772) SEDIMENTATION [id number] 01:10:00 Test Item Value Reference Range Interpretation Comments SEDIMENTATION RATE, ERYTHROCYTE 6 mm/HR 0-40 (BEAKER) (test code = 766) [id number] 00:35:00 Test Item Value Reference Range Interpretation Comments HOMOCYSTEINE (BEAKER) (test code = 8.5 umol/L 5.1-15.4 642) URINALYSIS W/ [id number] 00:30:00 Test Item Value Reference Range Interpretation [...] (test code = Urine, Voided 2795) TROPONIN [id number] 00:23:00 Test Item Value Reference Range Interpretation [...] acute neurological disease, and persistent tachyarrhythmia.HEPATIC FUNCTION [id number] 00:17:00 Test Item Value Reference Range Interpretation [...] = 31 U/L 6-55 347) BASIC METABOLIC [id number] 00:17:00 Test Item Value Reference Range Interpretation [...] NOT APPLICABLE FOR DIALYSIS PATIEN TS. C-REACTIVE [id number] 00:17:00 Test Item Value Reference Range Interpretation Comments C-REACTIVE PROTEIN (BEAKER) (test 0.55 mg/dL 0.00-0.50 H code = 676) PROTHROMBIN [id number] 00:07:00 Test Item Value Reference Range Interpretation [...]
[2021-09-21] MEDS ORDERED: NA CHLORIDE 0.9% 0 ML ONE (20:06)
[2021-09-21] MEDS ORDERED: NA CHLORIDE 0.9% 500 ML ONE (20:10)
[2021-09-21 20:17] LABS: Absolute Lymphocytes (CBC) 1.1 K/uL (0.7-4.9); Basophils % 0.9 % (0-1.3); Hematocrit 44.1 % (36.0-45.0); Lymphocytes % 12.7 % (15.3-44.8); MPV 9.5 fL (7.6-11.3); RBC Red Blood Cell Count 4.59 M/uL (3.86-4.86)
[2021-09-21 20:18] LABS: Protime INR 2.32
[2021-09-21 20:34] LABS: Urine Glucose Negative (Negative)
[2021-09-21 20:35] LABS: Urine Blood Negative (Negative); Urine Protein Negative (Negative)
[2021-09-21 20:54] LABS: Urine Bacteria 20-50 /HPF (<20); Urine Mucus 1+ /HPF (NONE SEEN); Urine RBC <5 /HPF (NONE SEEN)
--- NOTE | 2021-09-21 21:07 | RAD REPORT ---
EXAM DESCRIPTION: RAD - Chest Single View - 09/21/2021 8:46 pm CLINICAL HISTORY: CHF COMPARISON: August 26 TECHNIQUE: AP portable chest image was obtained 09/21/2021 8:46 pm . FINDINGS: No peripheral mass or consolidation. Cardiomegaly is present without significant vascular engorgement. Interstitial markings are prominent but not clearly different from comparison. Trachea i s midline. No measurable pleural effusion and no pneumothorax. No acute bony abnormality seen. No acu te aortic findings suspected. IMPRESSION: No peripheral mass consolidation. Cardiomegaly is present but no significant degree of failure or volume overload seen.
[2021-09-21 21:16] LABS: Albumin 3.2 g/dL (3.4-5.0); Bilirubin Direct 0.3 mg/dL (0-0.2); Bilirubin Total 1.1 mg/dL (0.2-1.0); Protein, Total 6.9 g/dL (6.4-8.2); Troponin (Emerg Dept Use Only) 0.05 ng/mL (0.0-0.045)
[2021-09-21 21:18] LABS: Magnesium 1.8 mg/dL (1.8-2.4); Potassium 4.8 mmol/L (3.5-5.1)
[2021-09-21] MEDS ORDERED: FUROSEMIDE 20 MG/ 2ML VIAL ONE (22:18)
--- NOTE | 2021-09-21 23:19 | ER ---
Nurse's Notes [facility] Name: Irene Bauer Age: 80 yrs Sex: Female : 1940 Arrival Date: 09/21/2021 Time: 19:44 Bed 8 Private MD: Diagnosis: Muscle weakness (generalized);Unspecified combined systolic (congestive) and diastolic (congestive) heart failure;Elevated digoxin level Presentation: 09/21 19:51 Chief complaint: Patient states: " I had just come back from the dinning room when I tw5 got told that I was going to the hospital because my digoxin level was too high." Patient also reports that she has been feeling nausea for the past 4 days, and that her "eyes feel dizzy today". Coronavirus screen: Vaccine status: Patient reports receiving the 2nd dose of the covid vaccine. Ebola Screen: Patient negative for fever greater than or equal to 101.5 degrees Fahrenheit, and additional compatible Ebola Virus Disease symptoms Patient denies exposure to infectious person. Patient denies travel to an Ebola-affected area in the 21 days before illness onset. Initial Sepsis Screen: Does the patient meet any 2 criteria? No. Patient's initial sepsis screen is negative. Does the patient have a suspected source of infection? No. Patient's initial sepsis screen is negative. Risk Assessment: Do you want to hurt yourself or someone else? Patient reports no desire to harm self or others. Onset of symptoms is unknown. 19:51 Method Of Arrival: EMS: [facility] tw5 19:51 Acuity: ISELA 3 tw5 Triage Assessment: 19:54 General: Appears in no apparent distress. Behavior is calm, cooperative, appropriate tw5 for age. Pain: Denies pain. GI: Reports dry heaves, and nausea. Historical: - Allergies: 19:54 NKA; tw5 - Home Meds: 19:54 alphagan 5 ml nightly [Active]; Benicar HCT 40-25 mg Oral tab 1 tab once daily tw5 [Active]; Zyrtec 10 mg Oral tab 1 tab once daily [Active]; Cymbalta 20 mg Oral cpDR 1 cap [Active]; diltiazem HCl 60 mg Oral cp12 1 cap 2 times per day [Active]; - PMHx: 19:54 Atrial Fib; Cataracts; CHF; colon cancer; Glaucoma; Hypertension; NOSE BLEEDS; tw5 osteoarthritis of spine; Osteopenia; Osteoporosis; TIA; - Immunization history:: Client reports receiving the 2nd dose of the Covid vaccine. - Social history:: Smoking status: Patient denies any tobacco usage or history of. - Family history:: not pertinent. - Hospitalizations: : No recent hospitalization is reported. Screenin:58 Abuse screen: Denies threats or abuse. Denies injuries from another. Nutritional tw5 screening: No deficits noted. Tuberculosis screening: No symptoms or risk factors identified. Fall Risk Secondary diagnosis (15 points) IV access (20 points). Ambulatory Aid- Crutches/Cane/Walker (15 pts). Assessment: 19:58 General: Appears in no apparent distress. Behavior is calm, cooperative, appropriate tw5 for age. Pain: Denies pain. Neuro: Level of Consciousness is awake, alert, obeys commands, Oriented to person, place, time, situation. Cardiovascular: Reports nausea. Respiratory: Airway is patent Trachea midline Respiratory effort is even, unlabored, Respiratory pattern is regular. GI: Abdomen is non-distended, Bowel sounds present X 4 quads. Abd is soft and non tender X 4 quads. 22:23 Reassessment: Patient and/or family updated on plan of care and expected duration. Pain as6 level reassessed. Patient is alert, oriented x 3, equal unlabored respirations, skin warm/dry/pink. General: Appears in no apparent distress. Behavior is calm, cooperative. 09/22 02:22 Reassessment: Patient appears in no apparent distress at this time. as6 Vital Signs: 09/21 19:51 BP 141 / 55; Pulse 68; Resp 20; Temp 98; Pulse Ox 93% on R/A; Weight 64.86 kg; Height 5 tw5 ft. 5 in. (165.10 cm); Pain 0/10; 20:42 BP 145 / 58; Pulse 63; Resp 19 S; Pulse Ox 94% on R/A; as6 22:23 BP 146 / 60; Pulse 67; Resp 17 S; Pulse Ox 100% on R/A; as6 09/22 00:10 BP 141 / 78; Pulse 56; Resp 20 S; Pulse Ox 100% on R/A; as6 02:28 BP 115 / 86; Pulse 62; Resp 19 S; Pulse Ox 98% on R/A; as6 09/21 19:51 Body Mass Index 23.79 (64.86 kg, 165.10 cm) tw5 ED Course: 09/21 19:44 Patient arrived in ED. rn 19:44 Jose M Raya MD is Attending Physician. rn 19:50 Linnette Sharma is Primary Nurse. tw5 19:54 Triage completed. tw5 19:54 Arm band placed on right wrist. tw5 20:01 Patient has correct armband on for positive identification. Placed in gown. Bed in low tw5 position. Call light in reach. Side rails up X 1. iron plastic bullet maker on. Pulse ox on. NIBP on. Door closed. Noise minimized. Moved to private room. Warm blanket given. Verbal reassurance given. 20:17 Basic Metabolic Panel Sent. tw5 20:17 Basic Metabolic Panel Sent. tw5 20:17 CBC with Diff Sent. tw5 20:18 LFT's Sent. tw5 20:18 Magnesium Sent. tw5 20:18 Digoxin Sent. tw5 20:18 NT PRO-BNP Sent. tw5 20:18 Troponin (emerg Dept Use Only) Sent. tw5 20:18 PT-INR Sent. tw5 20:46 XRAY Chest (1 view) In Process Unspecified. EDMS 21:47 Notified ED physician of a critical lab result(s). digoxin level of 5.0 Dr Dorota mcwilliams notified. 23:18 Derek Banks MD is Hospitalizing Provider. rn 09/22 03:01 Inserted saline lock: 20 gauge in left wrist, using aseptic technique. Blood collected. as6 03:01 No provider procedures requiring assistance completed. Patient admitted, IV remains in as6 place. Administered Medications: 09/21 20:17 Drug: NS 0.9% 500 ml Route: IV; Rate: bolus; Site: left wrist; as6 09/22 00:11 Follow up: Response: No adverse reaction; IV Status: Completed infusion; IV Intake: as6 500ml 09/21 22:21 Drug: Lasix (furosemide) 20 mg Route: IVP; Site: left wrist; as6 09/22 00:11 Follow up: Response: No adverse reaction as6 Intake: 00:11 IV: 500ml; Total: 500ml. as6 Outcome: 09/21 23:19 Decision to Hospitalize by Provider. rn 09/22 03:01 Admitted to Med/surg accompanied by tech, via stretcher, room 212, with chart, Report as6 called to Joseph HARDWICK Condition: stable 03:02 Patient left the ED. as6 Signatures: Dispatcher [employer] Carola Thayer, RN RN bb Jose M Raya MD MD rn Wood, Tiffany tw5 Kermit Burgos RN RN as6 Corrections: (The following items were deleted from the chart) 09/21 22:11 21:47 Notified ED physician of a critical lab result(s). digoxin level of 5.8 Dr Dorota mcwilliams notified bb
--- NOTE | 2021-09-21 23:19 | EDPHYS ---
Physician Documentation [facility] Name: Irene Bauer Age: 80 yrs Sex: Female : 1940 Arrival Date: 09/21/2021 Time: 19:44 Bed 8 Private MD: ED Physician Jose M Raya HPI: 09/21 19:46 This 80 yrs old Female presents to ER via Unassigned with complaints of generalized rn weakness, high digoxin level. 19:46 Reports generalized weakness for a couple of days, seen by Dr. Banks yesterday, rn outpatient labs sent, and Dr. Banks called today to say that digoxin level mildly elevated. No change to prescriptions recently, no recent abx. Reports does have chronic kidney problems, still urinating ok. Reports nausea this morning, no vomiting.. Onset: The symptoms/episode began/occurred yesterday. Severity of symptoms: At their worst the symptoms were mild in the emergency department the symptoms are unchanged. The patient has not experienced similar symptoms in the past. The patient has been recently seen by a physician:. Historical: - Allergies: 19:54 NKA; tw5 - Home Meds: 19:54 alphagan 5 ml nightly [Active]; Benicar HCT 40-25 mg Oral tab 1 tab once daily tw5 [Active]; Zyrtec 10 mg Oral tab 1 tab once daily [Active]; Cymbalta 20 mg Oral cpDR 1 cap [Active]; diltiazem HCl 60 mg Oral cp12 1 cap 2 times per day [Active]; - PMHx: 19:54 Atrial Fib; Cataracts; CHF; colon cancer; Glaucoma; Hypertension; NOSE BLEEDS; tw5 osteoarthritis of spine; Osteopenia; Osteoporosis; TIA; - Immunization history:: Client reports receiving the 2nd dose of the Covid vaccine. - Social history:: Smoking status: Patient denies any tobacco usage or history of. - Family history:: not pertinent. - Hospitalizations: : No recent hospitalization is reported. ROS: 19:46 Constitutional: Negative for fever, chills, and weight loss, Eyes: Negative for injury, rn pain, redness, and discharge, Cardiovascular: Negative for chest pain, palpitations, and edema, Respiratory: Negative for shortness of breath, cough, wheezing, and pleuritic chest pain, Abdomen/GI: + nausea, negative for vomiting or diarrhea Back: Negative for injury and pain, : Negative for injury, bleeding, discharge, and swelling, MS/Extremity: Negative for injury and deformity, Skin: Negative for injury, rash, and discoloration, Neuro: Negative for headache, numbness, tingling, and seizure. Exam: 19:46 Constitutional: This is a well developed, well nourished patient who is awake, alert, rn and in no acute distress. Head/Face: Normocephalic, atraumatic. Eyes: Periorbital areas with no swelling, redness, or edema. Cardiovascular: Irregular rhythm, regular rate. No pulse deficits. Respiratory: No increased work of breathing, no retractions or nasal flaring. Abdomen/GI: Soft, non-tender Skin: Warm, dry with normal turgor. Normal color with no rashes, no lesions, and no evidence of cellulitis MS/ Extremity: Pulses equal, no cyanosis. Neurovascular intact. Full, normal range of motion. Equal circumference. Neuro: Awake and alert, GCS 15, oriented to person, place, not time (thinks is 1971). Cranial nerves II-XII grossly intact. Motor strength 4/5 in all extremities. Sensory grossly intact. Vital Signs: 19:51 BP 141 / 55; Pulse 68; Resp 20; Temp 98; Pulse Ox 93% on R/A; Weight 64.86 kg; Height 5 tw5 ft. 5 in. (165.10 cm); Pain 0/10; 20:42 BP 145 / 58; Pulse 63; Resp 19 S; Pulse Ox 94% on R/A; as6 22:23 BP 146 / 60; Pulse 67; Resp 17 S; Pulse Ox 100% on R/A; as6 09/22 00:10 BP 141 / 78; Pulse 56; Resp 20 S; Pulse Ox 100% on R/A; as6 02:28 BP 115 / 86; Pulse 62; Resp 19 S; Pulse Ox 98% on R/A; as6 09/21 19:51 Body Mass Index 23.79 (64.86 kg, 165.10 cm) tw5 MDM: 09/21 19:44 Patient medically screened. rn 23:11 Differential Diagnosis digoxin toxicity, UTI, CHF, metabolic derangement. Data rn reviewed: vital signs, nurses notes, and as a result, I will discharge patient. Counseling: I had a detailed discussion with the patient and/or guardian regarding: the historical points, exam findings, and any diagnostic results supporting the discharge/admit diagnosis, lab results, radiology results, the need for further work-up and treatment in the hospital. Special discussion: I discussed with the patient/guardian in detail that at this point there is no indication for admission to the hospital. It is understood, however, that if the symptoms persist or worsen the patient needs to return immediately for re-evaluation. ED course: Consulted with Dr. Banks, will admit, hold digoxin, and recheck in AM. no dysrythmia noted, no sign of digoxin toxicity. . 09/21 20:03 Order name: Basic Metabolic Panel 09/21 20:03 Order name: CBC with Diff; Complete Time: 21:29 09/21 20:03 Order name: LFT's; Complete Time: 22:48 09/21 20:03 Order name: Magnesium; Complete Time: 22:48 09/21 20:03 Order name: NT PRO-BNP; Complete Time: 22:48 09/21 20:03 Order name: PT-INR; Complete Time: 21:29 09/21 20:03 Order name: Troponin (emerg Dept Use Only); Complete Time: 22:48 09/21 20:03 Order name: Digoxin; Complete Time: 22:48 09/21 20:03 Order name: Urine Microscopic Only; Complete Time: 21:29 09/21 20:03 Order name: Basic Metabolic Panel; Complete Time: 22:48 [facility] 09/21 20:34 Order name: Urine Dipstick-Ancillary; Complete Time: 21:29 [facility] 09/21 20:55 Order name: Urine Culture [facility] 09/22 01:32 Order name: COVID-19 (Coronavirus) Document "Date of Onset" if Symptomatic tw5 09/22 01:47 Order name: CORONAVIRUS [facility] 09/21 20:03 Order name: EKG; Complete Time: 20:04 09/21 20:03 Order name: Cardiac monitoring; Complete Time: 20: 09/21 20:03 Order name: EKG - Nurse/Tech; Complete Time: 20:17 09/21 20:03 Order name: IV Saline Lock; Complete Time: 20:17 rn 09/21 20:03 Order name: Labs collected and sent; Complete Time: 20: rn 09/21 20:03 Order name: O2 Per Protocol; Complete Time: 20: rn 09/21 20:03 Order name: O2 Sat Monitoring; Complete Time: 20: rn 09/21 20:03 Order name: Urine Dipstick-Ancillary (obtain specimen); Complete Time: 20:41 rn 09/21 20:03 Order name: XRAY Chest (1 view); Complete Time: 21:29 rn 09/22 02:26 Order name: SARS-COV-2 RT PCR EDMS Administered Medications: 20:17 Drug: NS 0.9% 500 ml Route: IV; Rate: bolus; Site: left wrist; as6 09/22 00:11 Follow up: Response: No adverse reaction; IV Status: Completed infusion; IV Intake: as6 500ml 09/21 22:21 Drug: Lasix (furosemide) 20 mg Route: IVP; Site: left wrist; as6 09/22 00:11 Follow up: Response: No adverse reaction as6 Disposition Summary: 09/21/21 23:19 Hospitalization Ordered Hospitalization Status: Inpatient Admission rn Provider: Derek Banks rn Location: Telemetry/MedSurg (Inpatient) rn Condition: Stable rn Problem: new rn Symptoms: are unchanged rn Bed/Room Type: Standard rn Room Assignment: [facility](09/22/21 02:27) Diagnosis - Muscle weakness (generalized) rn - Unspecified combined systolic (congestive) and diastolic (congestive) heart failure rn - Elevated digoxin level rn Forms: - Medication Reconciliation Form rn - SBAR form rn Signatures: Dispatcher [facility] Jose M Raya MD MD rn Garcia, Cindy RN RN Linnette Arnold tw5 Kermit Burgos RN RN as6 Corrections: (The following items were deleted from the chart) 09/21 19:52 19:46 Constitutional: This is a well developed, well nourished patient who is awake, rn alert, and in no acute distress. Head/Face: Normocephalic, atraumatic. Eyes: Periorbital areas with no swelling, redness, or edema. Cardiovascular: Irregular rhythm, regular rate. No pulse deficits. Respiratory: No increased work of breathing, no retractions or nasal flaring. Abdomen/GI: Soft, non-tender rn 09/22 02:27 09/21 23:19 rn cg
[2021-09-22 03:22] VITALS: BMI 30.4
[2021-09-22] MEDS ORDERED: ONDANSETRON 4 MG/2 ML VIAL IV PRN (03:30)
[2021-09-22] MEDS: METOPROLOL XL 50 MG TAB PO SCH ×2 (10:27→20:37)
[2021-09-22] MEDS: FUROSEMIDE 40 MG TABLET PO SCH ×2 (10:27→20:36)
[2021-09-22] MEDS: POTASSIUM CL SA 10 MEQ TAB PO SCH ×3 (10:27→20:36)
[2021-09-22] MEDS: DULOXETINE 20 MG CAP PO SCH (10:27)
[2021-09-22] MEDS: CIPROFLOXACIN HCL 250 MG TAB PO SCH ×2 (10:27→20:37)
[2021-09-22] MEDS: CETIRIZINE HCL 5 MG TABLET PO SCH (10:28)
--- NOTE | 2021-09-22 11:58 | RAD REPORT ---
EXAM DESCRIPTION: MRI - Brain Wo Cont - 09/22/2021 11:06 am CLINICAL HISTORY: confusion, memory problem COMPARISON: No comparisons TECHNIQUE: Sagittal T1-weighted images were obtained along with axial PD, heavily T2-weighted and T2 -FLAIR images. Axial DWI and ADC mapping sequences were also obtained along with coronal heavily T2-w eighted images. FINDINGS: No intracranial hemorrhage, mass or acute infarction. There is no edema or shift of midlin e structures. No extra-axial fluid collections. Mosley-matter/white matter junction is preserved. Signa l voids are seen as a normal finding in the major intracranial vessels. Patient has moderate severity atrophy with ventricles in proportion to the amount of volume loss. Cer ebellar atrophy is present as well. Chronic ischemic changes are seen in the periventricular cerebral white matter mild to moderate in degree. There is some minimal chronic ischemic changes evident in t he angela. Minimal chronic ischemic change in the basal ganglia. No globe or orbital content abnormality. No sella or supra sella abnormality. Mastoid air cells and paranasal sinuses are clear. IMPRESSION: No acute or subacute infarction changes seen. No hemorrhage, mass or acute intracranial finding. Moderate cerebral and mild cerebellar atrophy changes. Ventricles are in proportion to the volume los s. Mild to moderate chronic ischemic change in the cerebral white matter with mild chronic ischemic menchaca ges in the basal ganglia and brainstem.
[2021-09-22] MEDS: RIVAROXABAN 15 MG TABLET PO SCH (16:22)
[2021-09-22] MEDS: ALOGLIPTIN BENZOATE 12.5 MG TABLET PO SCH (16:23)
--- NOTE | 2021-09-22 16:41 | CON ---
Date of Consultation: 09/22/2021 Reason For Consultation: Digoxin toxicity. History Of Present Illness: An 80-year-old female with a history of chronic atrial fibrillation, on digoxin and on chronic anticoagulation. 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 Evaluated at the bedside, she has no complaints. Past Medical History: As outlined above in the HPI. Medications: Refer to reconciliation sheet for detailed list. Allergies: NO KNOWN DRUG ALLERGIES. Family History: Stroke on father's side. Colon cancer on mother's side. Social History: Does not smoke or drink. Does not use any drugs. Review of Systems: All systems reviewed and they were negative except as mentioned in HPI. Physical Examination: Vital Signs: Reviewed. Head and Neck: Pupils are equal and reactive to light. Intact eye movements. No JVD. No cervical lymphadenopathy. Neck is supple. Thyroid is not enlarged. Lungs: Clear to auscultation bilaterally. No rhonchi, rales, or crackles. No accessory muscle use. Heart: Regular rate and rhythm. No extra sounds. Abdomen: Soft, nontender. Bowel sounds are positive. Extremities: No edema, clubbing, or cyanosis. Intact pulses. Skin: No rash. Neurologic: Alert, awake, and oriented x3. No acute focal deficits appreciated. Investigations: White blood cell count was 8.9 and hemoglobin 14.8. Sodium 134, BUN is 27, and crea tinine 1.4. Troponin 0.05. NT-proBNP is 9263. Digoxin level is 5.0. Assessment And Recommendations: 1.Elevated digoxin level. There is no arrhythmia or EKG findings of digoxin toxicity. At her age a nd with the chronic kidney disease, I recommend to discontinue digoxin permanently. Monitor on telem etry and re-evaluate the level tomorrow. If any changes in rhythm, then we will plan to use the Digi bind, but at this point, we will monitor off the digoxin and follow up the levels. 2.Chronic atrial fibrillation. Once the digoxin level is completely normalized, adjust beta tiesha dose and continue anticoagulation with Xarelto. Thank you for the consult. /LAWANDA Voice ID: [id number] Report ID: [id number]
--- NOTE | 2021-09-22 20:16 | CON ---
Reason For Consultation: Consultation called by Dr. Banks because of confusion. History Of Present Illness: Ms. Bauer is an 80-year-old patient, who has a reported history of atria l fibrillation, on digoxin, who became more disoriented, confused, and had diffuse weakness. At [facility], she was evaluated and found to have elevated digoxin level of 5, which is more than twice the upper limit and she was admitted to manage her digoxin. Complete blood count with differen tial was normal. Coagulation panel showed INR of 2.32. Electrolytes showed elevated creatinine cons istent with dehydration. Sodium low at 134. Glucose elevated at 237. Alkaline phosphate is elevate d 138, and her urinalysis showed 20 to 50 bacteria, 5 to 10 epithelial cells, 5 to 10 white blood geno l's. COVID test was negative. She did have a brain MRI, which showed no acute ischemic or hemorrhag ic stroke, and her chest x-ray identified cardiomegaly, but no peripheral mass consolidation. At the time of my evaluation, the patient was fully alert and oriented to person, place, and situation. Sissy lerner knew the date. She did get the hospital floor one off, 3 instead of 2. She followed all commands appropriately. Past Medical History: As noted in addition to congestive heart failure, colon cancer, glaucoma, hype rtension, osteoarthritis, osteopenia, and transient ischemic attack. Allergies: NO KNOWN DRUG ALLERGIES. Home Medications: Alphagan 5 mL nightly, Benicar, hydrochlorothiazide 40/25 daily, Zyrtec 10 mg xochilt y, Cymbalta 20 mg daily, and diltiazem 60 mg twice daily. Family History: Noncontributory. Social History: No alcohol, tobacco, or IV drug use. Review of Systems: She reported diffuse weakness, disorientation, but is back to baseline and otherwise, no dermatologic complaints. No gastrointestinal or genitourinary complaints. No psychiatric complaints or other po sitives other than noted. Physical Examination: Vital Signs: Blood pressure 140/63, pulse 75, respiratory rate 16, temperature 97.8, oxygen saturati on 98% to 100% on room air. Weight 171 pounds, height 5 feet 3 inches, and BMI 30. General: Ms. Bauer is resting in bed. She is in no acute distress. HEENT: She is normocephalic, atraumatic. Sclerae anicteric. Oropharynx is pink and moist. Neck: Supple. Chest: Clear. Heart: Regular. Extremities: Show no clubbing, cyanosis, or edema. Neurologic: Cranial nerves, she has no focal deficits. Motor examination at least 4/5 proximally an d distally and symmetric. She does have some atrophy noted in the intrinsic hand muscles and reports that she does have neuropathy. Her sensory exam shows a stocking-glove loss to light touch and temp erature. Reflexes, depressed in the upper and lower extremities. Coordination intact in upper and l ower extremities. She will be ambulated with the physical therapist using a gait belt. Assessment: Ms. Bauer is an 80-year-old patient with potentially multiple reasons for encephalopathy , which is resolving now towards baseline. She does have digoxin toxicity and is being managed by [facility] care physician. Brain MRI did not identify any acute ischemic or hemorrhagic stroke. There wa s, however, moderate severity atrophy due to chronic small-vessel ischemic disease, potentially of mu ltifactorial etiology. She does not have a systemic infection with normal white blood cell count. N o anemia. She does appear to have renal insufficiency and may be dehydrated. Plan: 1.As noted continue aggressive management of her risk factors for stroke perhaps with aspirin and Pl avix, although with the potential for atrial fibrillation, she may require anticoagulation such as wi th Eliquis or Xarelto. That was discussed with Dr. Banks. 2.Addressed the toxicity, which is being done that is the digoxin toxicity. 3.At some point when discharged, she should have a formal workup for dementia including potentially a brain PET scan to rule out findings consistent with Alzheimer disease in addition to EEG and blood work for reversible causes of dementia and for genetic screening for apolipoprotein E. 4.Once the patient is discharged, she should call Dr. Kendall's office on Saturday for a followup josie ointment within a month. MARQUES/LAWANDA Voice ID: [id number] Report ID: [id number]
[2021-09-22] MEDS: FAMOTIDINE 20 MG TAB PO SCH (20:37)
[2021-09-22] MEDS: ATORVASTATIN 40 MG TAB PO SCH (20:37)
[2021-09-22] MEDS: BRIMONIDINE 0.15% OPTH SCH (20:38)
--- NOTE | 2021-09-22 20:58 | HP ---
Date of Admission: 09/22/2021 Reason For Admission: Abnormal blood test. History Of Present Illness: This is an 80-year-old female patient who came into my office day before yesterday with her daughter for her regular followup visit. The patient's daughter informed me that because of her recurrent UTI, she has been seeing urologist who has planned to do cystoscopy in we . The patient lives at [facility] and so far she was living on an indepen dent side managing her own medications, but lately she is not able to take her medications correctly and what patient and family has arranged for is for her to move into assisted care part of the [facility] [place] where her medications will be managed by nursing staff. She has been having some problems wit h confusion, tingling, numbness of hands and generalized weakness. She has home health services and home physical therapy services. After I saw her day before yesterday, routine labs were drawn and ye sterday I was notified that her digoxin level was elevated at 5.1 and soon after that I contacted the [facility] and informed the staff to send patient to emergency room and I daysi lso called the patient's daughter and communicated with her regarding same details. I also called ER physician last night and discussed details. This morning when I saw her, she was lying in bed, not in any distress. Does not have any other specific complaints. Her repeat digoxin level last night i n the emergency room was 5. Allergies: NO KNOWN ALLERGIES. Medications: Tylenol 500 mg 3 times a day as needed for pain, PreserVision 1 tablet 2 times a day, a torvastatin 40 mg at bedtime, Alphagan eye drops 1 drop to both eyes 2 times a day, Caltrate plus D1 tablet 2 times a day, digoxin 0.25 mg daily, duloxetine 20 mg p.o. daily with breakfast, famotidine 4 0 mg daily at bedtime, furosemide 40 mg takes 2 tablets 2 times a day, gabapentin 100 mg 2 times a da y, Tradjenta 5 mg daily in morning with breakfast, Claritin 10 mg daily as needed for allergies, meto lazone 2.5 mg once a week to be taken 30 minutes before furosemide, metoprolol tartrate 50 mg 1 table t 2 times a day, olmesartan 40 mg take 1 tablet by mouth daily only if systolic blood pressure more t schuster 140, MiraLAX powder 17 g powder mixed with water and drink it daily as needed for constipation, p otassium chloride 10 mEq 3 times a day, Xarelto 15 mg daily, Nasacort nasal spray 1 spray each nostri l 2 times a day. 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 Constitutional: As mentioned above. All other systems reviewed and negative. Past Medical History: Allergic rhinitis, impaired fasting glucose, hypertension, mixed hyperlipidemi a, chronic diastolic congestive heart failure, paroxysmal atrial fibrillation, diverticulosis, colon cancer involving splenic flexure, chronic kidney disease, leg edema, varicose veins, osteoarthritis a t multiple sites, anxiety, depression, and chronic kidney disease, it is stage IIIB. Past Surgical History: Appendectomy; partial resection of colon, July 02, 2012; hysterectomy; b ladder suspension; back surgery. Family History: Father had stroke. Mother had colon cancer. Social History: Negative for smoking or alcohol use. Immunization History: Her first dose of COVID-19 vaccine, October 17, 2020; second dose, November 14, 2020. Physical Examination: VITAL SIGNS: This morning, temperature 97.3, pulse 65, respiratory rate 14, blood pressure 143/63, o xygen saturation 95%. Height 5 feet 3 inches, weight 171 pounds. General: Awake, alert, oriented, not in distress. HEENT: Head atraumatic, normocephalic. Conjunctivae nonerythematous. Sclerae white. Mouth, no thr ush or edema noted. Ears/Nose, no mass, lesion, discharge noted. Neck: Supple. No JVD, lymph nodes, bruit, thyromegaly noted. Lungs: Bilateral good equal air entry. Clear to auscultation. No rhonchi. No rales. Heart: Normal heart sounds, no murmur or gallop. Abdomen: Soft, bowel sounds normal. No guarding, rigidity, tenderness, mass, hepatosplenomegaly, dis tention, or bruit noted. Extremities: No leg edema. No calf tenderness. Skin: No rash, ulcer, cellulitis. Lymphatics: No lymph node enlargement in neck, supraclavicular, infraclavicular region. Neuro: No focal neurological deficit. Chest: Unremarkable. External Genitalia: Deferred. Rectal: Deferred. Laboratory Data: White count 8.9, hemoglobin 14.8, platelets 167. INR 2.32. Sodium 134, potassium 4.8, chloride 93, bicarb 31, BUN 27, creatinine 1.42, glucose 237, calcium 9, magnesium 1.8, total bi lirubin 1.1, alkaline phosphatase 138. Troponin 0.05. ProBNP 9263. Urinalysis less than 5 rbc's, l eukocyte esterase and nitrites negative, bacteria 20 to 50, wbc's 5 to 10. Digoxin level 5. COVID-1 9 test negative. Chest x-ray, cardiomegaly present. No significant failure or volume overload brii quiroz noted. MRI of the brain done today without contrast shows no acute or subacute infarction, no hem orrhage, mass, or any acute intracranial finding. Moderate cerebral and mild cerebellar atrophy, mil d to moderate chronic ischemic changes in the cerebral white matter and basal ganglia and brainstem. Impression: 1.Digoxin toxicity. 2.Chronic kidney disease, stage IIIB. 3.Hypertension. 4.Mixed hyperlipidemia. 5.Chronic diastolic congestive heart failure. 6.Chronic atrial fibrillation. 7.Diabetes mellitus with chronic kidney disease. 8.Hypothyroidism. 9.Chronic anticoagulation use. 10.Rule out vascular dementia. Plan: Admit patient to hospital for further evaluation and management of this problem. The patient is appropriate for inpatient and is expected to spend 2 midnights in hospital. We will go ahead and consult Cardiology. At this point, we will continue to monitor her for any cardiac arrhythmia on tel emetry monitor and no need for any antidote for digoxin toxicity. I did communicate with Dr. Rivera from Cardiology and he recommends at this point no treatment except observation in the hospital for a ny kind of cardiac arrhythmia and also monitoring of the digoxin level. We will repeat blood work to morning. Physical Therapy was consulted today to help ambulate the patient. Depending on her condition tomorrow, we will decide if we can discharge her to go back to [facility] tomorrow or not. I have also requested neurology consultation. Home medications will be continued per order. HITESH/MODL Voice ID: [id number]
[2021-09-23 06:43] LABS: Absolute Lymphocytes (CBC) 1.2 K/uL (0.7-4.9); Basophils % 1.1 % (0-1.3); Hematocrit 38.9 % (36.0-45.0); Lymphocytes % 15.8 % (15.3-44.8); MPV 9.1 fL (7.6-11.3); RBC Red Blood Cell Count 4.11 M/uL (3.86-4.86)
[2021-09-23 07:16] LABS: Potassium 3.3 mmol/L (3.5-5.1)
[2021-09-23 07:17] LABS: Digoxin Level 3.1 ng/mL (0.80-2.00)
[2021-09-23 08:06] LABS: Blood Morphology Comment NOT SEEN (NOT SEEN); Platelet Estimate ADEQ
[2021-09-23] MEDS: METOPROLOL XL 50 MG TAB PO SCH ×2 (09:13→20:12)
[2021-09-23] MEDS: DULOXETINE 20 MG CAP PO SCH (09:13)
[2021-09-23] MEDS: CETIRIZINE HCL 5 MG TABLET PO SCH (09:13)
[2021-09-23] MEDS: CIPROFLOXACIN HCL 250 MG TAB PO SCH ×2 (09:13→20:12)
[2021-09-23] MEDS: POTASSIUM CL SA 10 MEQ TAB PO SCH ×2 (09:13→20:12)
[2021-09-23] MEDS: BRIMONIDINE 0.15% OPTH SCH ×2 (09:14→20:13)
[2021-09-23] MEDS: FUROSEMIDE 40 MG TABLET PO SCH ×2 (09:14→20:11)
[2021-09-23] MEDS: ALOGLIPTIN BENZOATE 12.5 MG TABLET PO SCH (09:18)
[2021-09-23] MEDS ORDERED: POTASSIUM CL SA 10 MEQ TAB PO ONE (10:09)
[2021-09-23] MEDS: ACETAMINOPHEN 500 MG TAB PO PRN (11:39)
--- NOTE | 2021-09-23 13:37 | PN ---
Date of Progress Note: 09/23/2021 Subjective: The patient was seen this morning for followup. Her daughter was with her at bedside. She is lying in bed, not in distress. When I saw her today, she was complaining of abdominal pain an d when I asked her how long she has been hurting, she reported that this started sometime yesterday. The pain has been intermittent. No aggravating or relieving factors. Denies any constipation, naus ea, vomiting. Objective: Vital Signs: Reviewed. HEENT: Examination unremarkable. Lungs: Clear to auscultation. No wheezing. No rales. Heart: Sounds normal. Abdomen: Soft. Bowel sounds normal. No guarding. Tenderness on the right upper quadrant and right anterior lateral flank region. No rebound tenderness. Bowel sounds normoactive. No distention. N o hepatosplenomegaly. No bruit. Extremities: No leg edema. Laboratory Data: White count 7.5, hemoglobin 13.1, platelets 129. Sodium 137, potassium 3.3, chlori de 98, bicarb 30, BUN 14, creatinine 0.84, glucose 150. Digoxin level 3.1. Impression: 1.Digoxin toxicity. 2.Hypokalemia. 3.Abdominal pain, right upper quadrant. 4.Hypertension. 5.Mixed hyperlipidemia. 6.Chronic diastolic congestive heart failure. 7.Chronic atrial fibrillation. 8.Chronic anticoagulation therapy. Plan: We will go ahead and continue current medications. Replace potassium per order. We will get abdominal ultrasound done on her as part of workup and Physical Therapy to continue to work with her. We will repeat blood work tomorrow morning. Depending on ultrasound, we will decide further plan o f treatment. Depending on her condition, we will see if we can possibly discharge her to go home tomorrow or not. Details were discussed with th e patient and her daughter. HITESH/MODL Voice ID: [id number] Report ID: [id number]
[2021-09-23] MEDS: RIVAROXABAN 15 MG TABLET PO SCH (17:46)
--- NOTE | 2021-09-23 17:46 | RAD REPORT ---
EXAM DESCRIPTION: US - Abdomen Exam Complete - 09/23/2021 5:17 pm CLINICAL HISTORY: Abdominal pain COMPARISON: Abdomen Pelvis Wo Contrast dated 08/26/2021 FINDINGS: No aortic aneurysm. The liver has a homogeneous echotexture. The portal vein is patent. The IVC at the level of the liver is unremarkable. No ascites. The gallbladder is unremarkable. No pericholecystic fluid, wall thickening, or gallstones identified. No biliary ductal dilatation. The pancreas was grossly unremarkable. The right kidney measures 10.1 cm normal echotexture. No hydronephrosis. No suspicious masses. The left kidney measures 8.9 cm with a normal echotexture. No hydronephrosis. No suspicious masses. The spleen is unremarkable. IMPRESSION: Abdominal ultrasound is within normal limits.
--- NOTE | 2021-09-23 18:20 | PN ---
Date of Progress Note: 09/23/2021 Subjective: Seen by bedside. She is asymptomatic. Review of Systems: No chest pain, shortness of breath, orthopnea, cough. No nausea, vomiting, diarrhea. No abdominal p ain. All other systems reviewed and are negative. Physical Examination: Vital Signs: Reviewed. Head and Neck: Pupils are equal, reactive to light. Intact eye movements. No JVD. No cervical lym phadenopathy. Neck: Supple. Thyroid is not enlarged. Lungs: Clear to auscultation bilaterally. No rhonchi, rales, or crackles. No accessory muscle use. Heart: Regular rate and rhythm. No extra sounds. Abdomen: Soft, nontender. Bowel sounds positive. No organomegaly. No masses or hernia. No rigidi ty or tenderness. Extremities: No clubbing, cyanosis. Intact pulses. Skin: No rashes. Neuro: Alert, awake, oriented x3. No acute focal deficits appreciated. Investigations: Digoxin is level at 3.1. Assessment And Recommendations: Elevated digoxin level at a toxic level, but there are no cardiac rh ythm abnormalities. Off digoxin. I recommend to permanently discontinue the digoxin due to the vba developer ian kidney disease. Recheck digoxin level tomorrow. Use AV node blocking agents like beta tiesha or calcium channel tiesha for rate control and anticoagulation for stroke p revention. SR/MODL Voice ID: [id number] Report ID: [id number]
--- NOTE | 2021-09-23 19:04 | RAD REPORT ---
EXAM DESCRIPTION: RAD - Abdomen W Erect - 09/23/2021 6:45 pm CLINICAL HISTORY: abd pain COMPARISON: Abdomen Pelvis Wo Contrast dated 08/26/2021 FINDINGS: Nonobstructive bowel gas pattern. No acute osseous abnormality.Visualized lungs are unrema rkable.No abnormal calcifications. Scoliosis. Fusion hardware in the lower spine. IMPRESSION: Nonobstructive bowel gas pattern.
[2021-09-23] MEDS: ATORVASTATIN 40 MG TAB PO SCH (20:11)
[2021-09-23] MEDS: FAMOTIDINE 20 MG TAB PO SCH (20:12)
[2021-09-24 06:09] LABS: Absolute Lymphocytes (CBC) 1.1 K/uL (0.7-4.9); Basophils % 0.9 % (0-1.3); Hematocrit 40.2 % (36.0-45.0); Lymphocytes % 12.6 % (15.3-44.8); MPV 9.1 fL (7.6-11.3); RBC Red Blood Cell Count 4.27 M/uL (3.86-4.86)
[2021-09-24 06:29] LABS: Digoxin Level 2.3 ng/mL (0.80-2.00); Magnesium 1.6 mg/dL (1.8-2.4); Potassium 3.2 mmol/L (3.5-5.1)
[2021-09-24] MEDS ORDERED: POTASSIUM CL SA 10 MEQ TAB PO ONE (07:51)
[2021-09-24] MEDS ORDERED: MAGNESIUM SULFATE 1 gm IVPB 1 GM/100 ML BAG IV ONE (07:55)
[2021-09-24] MEDS: BRIMONIDINE 0.15% OPTH SCH (09:00)
[2021-09-24] MEDS: ALOGLIPTIN BENZOATE 12.5 MG TABLET PO SCH (09:00)
[2021-09-24] MEDS: DULOXETINE 20 MG CAP PO SCH (09:55)
[2021-09-24] MEDS: CIPROFLOXACIN HCL 250 MG TAB PO SCH (09:56)
[2021-09-24] MEDS: FUROSEMIDE 40 MG TABLET PO SCH (09:56)
[2021-09-24] MEDS: CETIRIZINE HCL 5 MG TABLET PO SCH (09:56)
[2021-09-24] MEDS: POTASSIUM CL SA 10 MEQ TAB PO SCH (09:57)
[2021-09-24] MEDS: METOPROLOL XL 50 MG TAB PO SCH (10:00)
[2021-09-24 10:01] VITALS: BP 158/73
[2021-09-24 10:17] VITALS: O2SAT 96
[2021-09-24] MEDS: ACETAMINOPHEN 500 MG TAB PO PRN (10:21)
[2021-09-24 10:27] VITALS: TEMP 97.5
--- NOTE | 2021-09-24 13:08 | DS ---
Date of Discharge: 09/24/2021 Subjective: The patient was seen this morning for followup. She was sitting at the bedside in the chair. Her daughter was with her at bedside. Denies any abdominal pain. Yesterday when I saw her, she was having some right-sided abdominal pain, which has completely resolved now. Objective: Vital Signs: Reviewed. HEENT: Unremarkable. Lungs: Clear to auscultation. Heart: Sounds normal. Abdomen: Soft, bowel sounds normal. No guarding, rigidity, tenderness, or distention. Extremities: No leg edema. Laboratory Data: Upon admission, white count 8.9, hemoglobin 14.8, platelets 167. Today, white count 8.8, hemoglobin 13.6, platelets 134. Upon admission, sodium 134, potassium 4.8, chloride 93, bicarb 31, BUN 27, creatinine 1.42, glucose 237. Liver function tests unremarkable except for total bilirubin 1.1 and alkaline phosphatase 138. Troponin 0.05. ProBNP 9263. Yesterday, potassium 3.3, BUN 14, creatinine 0.84. Today, sodium 137, potassium 3.2, chloride 97, bicarb 30, BUN 11, creatinine 0.89, glucose 149, magnesium 1.3. Initial digoxin level was 5. Yesterday, digoxin level was 3.1, and today, digoxin level down to 2.3. Discharge Medications And Instructions: 1. Continue all prior home medications except stop digoxin. 2. Change potassium chloride 10 mEq, the patient to take 2 tablets by mouth 3 times a day. 3. Follow up at my office during first or second week of October 2021. Call office for appointment. 4. Come to office to get known fasting blood tests done a few days prior to this appointment. Hospital Course: This is an 80-year-old very pleasant female, who was admitted to the hospital with digoxin toxicity. Please see dictated H and P for more information. The patient was started on digoxin approximately about a month ago or so, and she tolerated this very well. It actually helped to control her heart rate as she was having atrial fibrillation with rapid ventricular rate. Unfortunately, routine labs, which was done for monitoring of digoxin level, showed that her digoxin level was 5.1, so the patient was contacted and was asked to come into emergency room. After she was evaluated in the ER, she was admitted to the hospital. While in the hospital, we consulted manager forensic, who did not suggest any further intervention except monitoring on the telemetry as well as monitoring of the digoxin level. She remained in atrial fibrillation on telemetry. No other arrhythmia noted. Her digoxin level came down today, it is down to 2.3, almost back to within normal range, but we have decided not to continue her digoxin anymore now. All these details were discussed with her and her daughters. Yesterday when I saw her, she was complaining of right-sided abdominal pain, so we did abdominal ultrasound, which came back unremarkable. We also did x-ray of abdomen, which came back unremarkable. When I saw her today, she reports that her abdominal pain problem has resolved now. She did ambulate with physical therapy yesterday very well. She lives at [facility]. So far, she was living in an independent site, but as of this week, she moved into assisted care side where nursing staff at the [facility] will administer her medication. She has home health care services along with home physical therapy, and today, the patient's daughter was telling me that somehow home health agency notified her recently that they may have trouble getting approval from insurance company for ongoing services. They were not sure whether she should go to some facility for rehab for couple of weeks or not, which I am not clear on all those because if at all, insurance company is more likely to refuse to pay benefit for her to go to nursing home facility for rehab, and they are more likely to approve home health and home physical therapy by keeping her where she is, so I am not clear on it, but daughter will communicate with home health agency and let us know if there is any intervention that needs to be done on my end. Her potassium continues to remain low. We gave her extra 40 mEq potassium chloride this morning, and normally at home, she takes 10 mEq tablets, 1 tablet 3 times a day. We will increase the dose to 2 tablets 3 times a day. Her magnesium was low today, which we will replace that per order. During this hospitalization, we also did an MRI of the brain, which did not show any acute intracranial changes, but did show some changes of chronic ischemic changes in the brain. Dr. Kendall from Neurology was consulted, and the patient is willing to continue to follow up with him on an outpatient basis. She will call his office to set an appointment. Final Diagnoses: 1. Digoxin toxicity. 2. Hypokalemia. 3. Hypomagnesemia. 4. Hyponatremia. 5. Thrombocytopenia. 6. Chronic kidney disease, stage 3B. 7. Hypertension. 8. Mixed hyperlipidemia. 9. Chronic diastolic heart failure. 10. Chronic atrial fibrillation. 11. Diabetes mellitus with chronic kidney disease. 12. Hypothyroidism. 13. Chronic anticoagulation use. 14. Rule out vascular dementia. HITESH/MODL Voice ID: [id number] Report ID: [id number] [facility]
== END 2021-09-24 11:45 | disposition home health service (06) | DRG 948 ==
LOC: ER 19:42 → ERHOLD 09-22 00:27 → 2ND 09-22 02:32
PROVIDERS: ADMIT Internal Medicine; ATTEND Internal Medicine
DX: R53.1 Weakness (principal); E87.1 Hypo-osmolality and hyponatremia; I13.0 Hypertensive heart and chronic kidney disease with heart failure and stage 1 through stage 4 chronic kidney disease, or unspecified chronic kidney disease; I50.32 Chronic diastolic (congestive) heart failure; I48.20 Chronic atrial fibrillation, unspecified; G93.40 Encephalopathy, unspecified; T46.0X5A Adverse effect of cardiac-stimulant glycosides and drugs of similar action, initial encounter; Y92.009 Unspecified place in unspecified non-institutional (private) residence as the place of occurrence of the external cause; E87.6 Hypokalemia; E83.42 Hypomagnesemia; D69.6 Thrombocytopenia, unspecified; E11.22 Type 2 diabetes mellitus with diabetic chronic kidney disease; N18.32 Chronic kidney disease, stage 3b; E78.2 Mixed hyperlipidemia; E03.9 Hypothyroidism, unspecified; F01.50 Vascular dementia, unspecified severity, without behavioral disturbance, psychotic disturbance, mood disturbance, and anxiety; R10.11 Right upper quadrant pain; Z79.01 Long term (current) use of anticoagulants; Z20.822 Contact with and (suspected) exposure to COVID-19
CPT/HCPCS: 36415; 70551; 71045; 74019; 76700; 80048; 80076; 80162; 81003; 81015; 83735; 83880; 84484; 85025; 85610; 87086; 87088; 93005; 96361; 96374; 97161; 99285; J1940; J3475; J7040; U0003

== ENCOUNTER 2021-09-26 22:01 | Emergency (ER) | payer OTHER ==
--- OUTSIDE RECORDS SUMMARY | 2021-09-26 22:06 | XMS REPORT | Continuity of Care Document ---
:1940 Author Organization [facility] t Address [address] [place] [address] Care Team Providers Name Role Phone Kaushik [...] Date Expiration Date S denae AETKATYA MANAGED [id number] 2020 MEDICARE PPO-RENEE 00:00:00 Problems Condition Condition [...] (hypertens (hypertens it y of ion), ion), [place] benign benign Medical Branch HLD HLD Disease Active Univers (hyperlipi (hyperlipi it y of demia) demia) [facility] Osteoarthr Osteoarthr Disease Active U nivers itis [...] Active Univers ALLERGIE Class ity of S [facility] Social History Social Habit Start Date Stop Date Quantity Comments Source Exposure to Not sure [facility] SARS-CoV-2 [facility] (event) Branch Alcohol intake 2021-09-16 2021-09-16 Current University 00:00:00 00:00:00 non-drinker of [facility] alcohol Branch (finding) Tobacco use and 2019-11-27 2019-11-27 Never used Universit y of exposure 00:00:00 00:00:00 [facility] Sex [birth year] Universit y of 00:00:00 00:00:00 [facility] Smoking Status Start Date Stop Date Source Never smoker [facility] Medications Ordered Filled Start Stop Current Ordering Indication Dosage Frequency Signature Comments Components Source Medication Medication Date Date Medication? Clinician (SIG) Name Name cefpodoxime 2020-10- Yes [id number] 100mg Take 1 Univers 100 mg 2-04 12-12 tablet by ity of tablet 00:00: 05:59 mouth 2 [place] 00 :00 (two) Medical times Branch daily for 7 days. DULOXETINE 2020-0 Yes [id number] 20mg TAKE 1 U nivers 20 mg 5-22 CAPSULE BY ity of capsule 00:00: MOUTH [place] 00 DAILY. Medical KEEP ON Branch FILE. DULOXETINE 2020-0 Yes [id number] 20mg TAKE 1 U nivers 20 mg 5-22 CAPSULE BY ity of capsule 00:00: MOUTH [place] 00 DAILY. Medical KEEP ON Branch FILE. DULOXETINE 2020-0 Yes [id number] 20mg TAKE 1 U nivers 20 mg 5-22 CAPSULE BY ity of capsule 00:00: MOUTH [place] 00 DAILY. Medical KEEP ON Branch FILE. DULOXETINE 2020-0 Yes [id number] 20mg TAKE 1 U nivers 20 mg 5-22 CAPSULE BY ity of capsule 00:00: MOUTH [place] 00 DAILY. Medical KEEP ON Branch FILE. METOPROLOL 2020-0 Yes [id number] TAKE 1 U nivers TARTRATE 3-16 TABLET BY ity of 100 mg 00:00: MOUTH [place] tablet 00 TWICE A Medical DAY Branch METOPROLOL 2020-0 Yes [id number] TAKE 1 U nivers TARTRATE 3-16 TABLET BY ity of 100 mg 00:00: MOUTH [place] tablet 00 TWICE A Medical DAY Branch METOPROLOL 2020-0 Yes [id number] TAKE 1 U nivers TARTRATE 3-16 TABLET BY ity of 100 mg 00:00: MOUTH [place] tablet 00 TWICE A Medical DAY Branch METOPROLOL 2020-0 Yes [id number] TAKE 1 U nivers TARTRATE 3-16 TABLET BY ity of 100 mg 00:00: MOUTH [place] tablet 00 TWICE A Medical DAY Branch METOPROLOL 2020-0 Yes [id number] TAKE 1 U nivers TARTRATE 3-16 TABLET BY ity of 100 mg 00:00: MOUTH [place] tablet 00 TWICE A Medical DAY Branch METOPROLOL 2020-0 Yes [id number] TAKE 1 U nivers TARTRATE 3-16 TABLET BY ity of 100 mg 00:00: MOUTH [place] tablet 00 TWICE A Medical DAY Branch METOPROLOL 2020-0 Yes [id number] TAKE 1 U nivers TARTRATE 3-16 TABLET BY ity of 100 mg 00:00: MOUTH [place] tablet 00 TWICE A Medical DAY Branch OLMESARTAN 2018-10 Yes [id number] 40mg TAKE 1 Un mega 40 mg 2-27 TABLET BY ity of tablet 00:00: MOUTH [place] 00 DAILY. Medical KEEP ON Branch FILE. OLMESARTAN 2018-10 Yes [id number] 40mg TAKE 1 [facility] mega 40 mg 2-27 TABLET BY ity of tablet 00:00: MOUTH [place] 00 DAILY. Medical KEEP ON Branch FILE. OLMESARTAN 2018-10 Yes [id number] 40mg TAKE 1 [facility] 40 mg 2-27 TABLET BY ity of tablet 00:00: MOUTH [place] 00 DAILY. Medical KEEP ON Branch FILE. OLMESARTAN 2018-10 Yes [id number] 40mg TAKE 1 [facility] mega 40 mg 2-27 TABLET BY ity of tablet 00:00: MOUTH [place] 00 DAILY. Medical KEEP ON Branch FILE. OLMESARTAN 2018-10 Yes [id number] 40mg TAKE 1 [facility] mega 40 mg 2-27 TABLET BY ity of tablet 00:00: MOUTH [place] 00 DAILY. Medical KEEP ON Branch FILE. OLMESARTAN 2018-10 Yes [id number] 40mg TAKE 1 Un mega 40 mg 2-27 TABLET BY ity of tablet 00:00: MOUTH [place] 00 DAILY. Medical KEEP ON Branch FILE. OLMESARTAN 2018-10 Yes [id number] 40mg TAKE 1 Un mega 40 mg 2-27 TABLET BY ity of tablet 00:00: MOUTH [place] 00 DAILY. Medical KEEP ON Branch FILE. OLMESARTAN 2018-10 Yes [id number] 40mg TAKE 1 Un mega 40 mg 2-27 TABLET BY ity of tablet 00:00: MOUTH [place] 00 DAILY. Medical KEEP ON Branch FILE. OLMESARTAN 2018-10 Yes [id number] 40mg TAKE 1 Un mega 40 mg 2-27 TABLET BY ity of tablet 00:00: MOUTH [place] 00 DAILY. Medical KEEP ON Branch FILE. OLMESARTAN 2018-10 Yes [id number] 40mg TAKE 1 Un mega 40 mg 2-27 TABLET BY ity of tablet 00:00: MOUTH [place] 00 DAILY. Medical KEEP ON Branch FILE. OLMESARTAN 2018-10 Yes [id number] 40mg TAKE 1 Un mega 40 mg 2-27 TABLET BY ity of tablet 00:00: MOUTH [place] 00 DAILY. Medical KEEP ON Branch FILE. OLMESARTAN 2018-10 Yes [id number] 40mg TAKE 1 Un mega 40 mg 2-27 TABLET BY ity of tablet 00:00: MOUTH [place] 00 DAILY. Medical KEEP ON Branch FILE. OLMESARTAN 2018-10 Yes [id number] 40mg TAKE 1 Un mega 40 mg 2-27 TABLET BY ity of tablet 00:00: MOUTH [place] 00 DAILY. Medical KEEP ON Branch FILE. OLMESARTAN 2018-10 Yes [id number] 40mg TAKE 1 Un mega 40 mg [...] s: atrial fibrillati on METOLAZONE 2018-10 Yes [id number] 5mg TAKE 1 Un mega 5 mg tablet 2-09 TABLET BY ity of 00:00: MOUTH [place] 00 WEEKLY. Medical TAKE 30 Branch MINUTES BEFORE FUROSEMIDE . METOLAZONE 2018-10 Yes [id number] 5mg TAKE 1 Un mega 5 mg tablet 2-09 TABLET BY ity of 00:00: MOUTH [place] 00 WEEKLY. Medical TAKE 30 Branch MINUTES BEFORE FUROSEMIDE . METOLAZONE 2018-10 Yes [id number] 5mg TAKE 1 Un mega 5 mg tablet 2-09 TABLET BY ity of 00:00: MOUTH [place] 00 WEEKLY. Medical TAKE 30 Branch MINUTES BEFORE FUROSEMIDE . METOLAZONE 2018-10 Yes [id number] 5mg TAKE 1 Un emga 5 mg tablet 2-09 TABLET BY ity of 00:00: MOUTH [place] 00 WEEKLY. Medical TAKE 30 Branch MINUTES BEFORE FUROSEMIDE . METOLAZONE 2018-10 Yes [id number] 5mg TAKE 1 Un mega 5 mg tablet 2-09 TABLET BY ity of 00:00: MOUTH [place] 00 WEEKLY. Medical TAKE 30 Branch MINUTES BEFORE FUROSEMIDE . METOLAZONE 2018-10 Yes [id number] 5mg TAKE 1 Un mega 5 mg tablet 2-09 TABLET BY ity of 00:00: MOUTH [place] 00 WEEKLY. Medical TAKE 30 Branch MINUTES BEFORE FUROSEMIDE . METOLAZONE 2018-10 Yes [id number] 5mg TAKE 1 Un mega 5 mg tablet 2-09 TABLET BY ity of 00:00: MOUTH [place] WEEKLY. Medical TAKE 30 Branch MINUTES BEFORE FUROSEMIDE . METOLAZONE 2018-10 Yes [id number] 5mg TAKE 1 Un mega 5 mg tablet 2-09 TABLET BY ity of 00:00: MOUTH [place] 00 WEEKLY. Medical TAKE 30 Branch MINUTES BEFORE FUROSEMIDE . METOLAZONE 2018-10 Yes [id number] 5mg TAKE 1 Un mega 5 mg tablet 2-09 TABLET BY ity of 00:00: MOUTH [place] 00 WEEKLY. Medical TAKE 30 Branch MINUTES BEFORE FUROSEMIDE . METOLAZONE 2018-10 Yes [id number] 5mg TAKE 1 Un mega 5 mg tablet 2-09 TABLET BY ity of 00:00: MOUTH [place] 00 WEEKLY. Medical TAKE 30 Branch MINUTES BEFORE FUROSEMIDE . METOLAZONE 2018-10 Yes [id number] 5mg TAKE 1 Un mega 5 mg tablet 2-09 TABLET BY ity of 00:00: MOUTH [place] 00 WEEKLY. Medical TAKE 30 Branch MINUTES BEFORE FUROSEMIDE . METOLAZONE 2018-10 Yes [id number] 5mg TAKE 1 Un mega 5 mg tablet 2-09 TABLET BY ity of 00:00: MOUTH [place] 00 WEEKLY. Medical TAKE 30 Branch MINUTES BEFORE FUROSEMIDE . METOLAZONE 2018-10 Yes [id number] 5mg TAKE 1 Un mega 5 mg tablet 2-09 TABLET BY ity of 00:00: MOUTH [place] 00 WEEKLY. Medical TAKE 30 Branch MINUTES BEFORE FUROSEMIDE . METOLAZONE 2018-10 Yes [id number] 5mg TAKE 1 Un mega 5 mg [...] 7-11 mouth. ity of ITAMIN D3 16:07: [place] (CALTRATE 35 Medical 600 + D Branch [...] 7-11 mouth. ity of ITAMIN D3 16:07: [place] (CALTRATE 35 Medical 600 + D Branch [...] 7-11 mouth. ity of ITAMIN D3 16:07: [place] (CALTRATE 35 Medical 600 + D Branch ORAL) CALCIUM 2019-0 Yes Take by Univer s CARBONATE/V 7-11 mouth. ity of ITAMIN D3 16:07: [place] (CALTRATE 35 Medical 600 + D Branch ORAL) CALCIUM 2019-0 Yes Take by Univer s CARBONATE/V 7-11 mouth. ity of ITAMIN D3 16:07: [place] (CALTRATE 35 Medical 600 + D Branch ORAL) CALCIUM 2019-0 Yes Take by Univer s CARBONATE/V 7-11 mouth. ity of ITAMIN D3 16:07: [place] (CALTRATE 35 Medical 600 + D Branch [...] 7-11 mouth. ity of ITAMIN D3 16:07: [place] (CALTRATE 35 Medical 600 + D Branch ORAL) CALCIUM 2019-0 Yes Take by Univer s CARBONATE/V 7-11 mouth. ity of ITAMIN D3 16:07: [place] (CALTRATE 35 Medical 600 + D Branch ORAL) CALCIUM Yes Take by [employer] s CARBONATE/V 7-11 mouth. ity of ITAMIN D3 16:07: [place] (CALTRATE 35 Medical 600 + D Branch ORAL) brimonidine Yes 1[drp] Place 1 U nivers tartrate 11 Drop in ity of (ALPHAGAN P 11:31: each eye 3 [place] OPHTHALMIC) 49 (three) Medic al times Branch daily as needed (eye dryness). CALCIUM Yes Take by [email or web address] CARBONATE/V 7-11 mouth. ity of ITAMIN D3 11:07: [place] (CALTRATE 35 Medical 600 + D Branch ORAL) vit Yes [id number] 1{capsu Take 1 U nivers C,E-Zn-mercedes 7-11 [id number] le} capsule by ity of r-lutein-ze 00:00: mouth 2 [place] (two) Medical (PRESERVISI times Branch ON AREDS-2) daily. 250-200-40- 1 mg-unit-mg- mg Cap vit Yes [id number] 1{capsu Take 1 U nivers C,E-Zn-mercedes 7-11 [id number] le} capsule by ity of r-lutein-ze 00:00: mouth 2 [place] 00 (two) Medical (PRESERVISI times Branch ON AREDS-2) daily. 250-200-40- 1 mg-unit-mg- mg Cap vit Yes [id number] 1{capsu Take 1 U nivers C,E-Zn-mercedes 7-11 [id number] le} capsule by ity of r-lutein-ze 00:00: mouth 2 [place] 00 (two) Medical (PRESERVISI times Branch ON AREDS-2) daily. 250-200-40- 1 mg-unit-mg- mg Cap vit Yes [id number] 1{capsu Take 1 U nivers C,E-Zn-mercedes 7-11 [id number] le} capsule by ity of r-lutein-ze 00:00: mouth 2 [place] 00 (two) Medical (PRESERVISI times Branch ON AREDS-2) daily. 250-200-40- 1 mg-unit-mg- mg Cap vit 2019-0 Yes [id number] 1{capsu Take 1 U nivers C,E-Zn-mercedes 7-11 [id number] le} capsule by ity of r-lutein-ze 00:00: mouth 2 [place] 00 (two) Medical (PRESERVISI times Branch ON AREDS-2) daily. 250-200-40- 1 mg-unit-mg- mg Cap vit 2019-0 Yes [id number] 1{capsu Take 1 U nivers C,E-Zn-mercedes 7-11 [id number] le} capsule by ity of r-lutein-ze 00:00: mouth 2 [place] 00 (two) Medical (PRESERVISI times Branch ON AREDS-2) daily. 250-200-40- 1 mg-unit-mg- mg Cap vit 2018-0 Yes [id number] 1{capsu Take 1 U nivers C,E-Zn-mercedes 7-11 [id number] le} capsule by ity of r-lutein-ze 00:00: mouth 2 [place] 00 (two) Medical (PRESERVISI times Branch ON AREDS-2) daily. 250-200-40- 1 mg-unit-mg- mg Cap vit 2018-0 Yes [id number] 1{capsu Take 1 U nivers C,E-Zn-mercedes 7-11 [id number] le} capsule by ity of r-lutein-ze 00:00: mouth 2 [place] 00 (two) Medical (PRESERVISI times Branch ON AREDS-2) daily. 250-200-40- 1 mg-unit-mg- mg Cap vit 2019-0 Yes [id number] 1{capsu Take 1 U nivers C,E-Zn-mercedes 7-11 [id number] le} capsule by ity of r-lutein-ze 00:00: mouth 2 [place] 00 (two) Medical (PRESERVISI times Branch ON AREDS-2) daily. 250-200-40- 1 mg-unit-mg- mg Cap vit 2019-0 Yes [id number] 1{capsu Take 1 U nivers C,E-Zn-mercedes 7-11 [id number] le} capsule by ity of r-lutein-ze 00:00: mouth 2 [place] 00 (two) Medical (PRESERVISI times Branch ON AREDS-2) daily. 250-200-40- 1 mg-unit-mg- mg Cap vit 2019-0 Yes [id number] 1{capsu Take 1 U nivers C,E-Zn-mercedes 7-11 [id number] le} capsule by ity of r-lutein-ze 00:00: mouth 2 [place] 00 (two) Medical (PRESERVISI times Branch ON AREDS-2) daily. 250-200-40- 1 mg-unit-mg- mg Cap vit 2019-0 Yes [id number] 1{capsu Take 1 U nivers C,E-Zn-mercedes 7-11 [id number] le} capsule by ity of r-lutein-ze 00:00: mouth 2 [place] 00 (two) Medical (PRESERVISI times Branch ON AREDS-2) daily. 250-200-40- 1 mg-unit-mg- mg Cap vit 2019-0 Yes [id number] 1{capsu Take 1 U nivers C,E-Zn-mercedes 7-11 [id number] le} capsule by ity of r-lutein-ze 00:00: mouth 2 [place] 00 (two) Medical (PRESERVISI times Branch ON AREDS-2) daily. 250-200-40- 1 mg-unit-mg- mg Cap vit 2019-0 Yes [id number] 1{capsu Take 1 U nivers C,E-Zn-mercedes 7-11 [id number] le} capsule by ity of r-lutein-ze 00:00: mouth 2 [place] 00 (two) Medical (PRESERVISI times Branch ON AREDS-2) daily. 250-200-40- 1 mg-unit-mg- mg Cap vit 2019-0 Yes [id number] 1{capsu Take 1 U nivers C,E-Zn-mercedes 7-11 [id number] le} capsule by ity of r-lutein-ze 00:00: mouth 2 [place] 00 (two) Medical (PRESERVISI times Branch ON AREDS-2) daily. 250-200-40- 1 mg-unit-mg- mg Cap vit 2019-0 Yes [id number] 1{capsu Take 1 U nivers C,E-Zn-mercedes 7-11 [id number] le} capsule by ity of r-lutein-ze 00:00: mouth 2 [place] 00 (two) Medical (PRESERVISI times Branch ON AREDS-2) daily. 250-200-40- 1 mg-unit-mg- mg Cap vit 2019-0 Yes [id number] 1{capsu Take 1 U nivers C,E-Zn-mercedes 7-11 [id number] le} capsule by ity of r-lutein-ze 00:00: mouth 2 [place] 00 (two) Medical (PRESERVISI times Branch ON AREDS-2) daily. 250-200-40- 1 mg-unit-mg- mg Cap furosemide Yes [id number] 80mg Take 2 Un mega (LASIX) 40 2-20 tablets by ity of mg tablet 00:00: mouth [place] 00 every Medical morning Branch and evening. Keep on file. atorvastati Yes [id number] 40mg Take 1 Univers n 40 mg 2-20 tablet by ity of tablet 00:00: mouth at [place] 00 bedtime. Medical Keep on Branch file. furosemide Yes [id number] 80mg Take 2 Un mega (LASIX) 40 2-20 tablets by ity of mg tablet 00:00: mouth [place] 00 every Medical morning Branch and evening. Keep on file. atorvastati Yes [id number] 40mg Take 1 Univers n 40 mg 2-20 tablet by ity of tablet 00:00: mouth at [place] 00 bedtime. Medical Keep on Branch file. furosemide Yes [id number] 80mg Take 2 Un mega (LASIX) 40 2-20 tablets by ity of mg tablet 00:00: mouth [place] 00 every Medical morning Branch and evening. Keep on file. atorvastati Yes [id number] 40mg Take 1 Univers n 40 mg 2-20 tablet by ity of tablet 00:00: mouth at [place] 00 bedtime. Medical Keep on Branch file. furosemide Yes [id number] 80mg Take 2 Un mega (LASIX) 40 2-20 tablets by ity of mg tablet 00:00: mouth [place] 00 every Medical morning Branch and evening. Keep on file. atorvastati Yes [id number] 40mg Take 1 Univers n 40 mg 2-20 tablet by ity of tablet 00:00: mouth at [place] 00 bedtime. Medical Keep on Branch file. furosemide 2018-0 Yes [id number] 80mg Take 2 Un mega (LASIX) 40 2-20 tablets by ity of mg tablet 00:00: mouth [place] 00 every Medical morning Branch and evening. Keep on file. atorvastati 2018-0 Yes [id number] 40mg Take 1 Univers n 40 mg 2-20 tablet by ity of tablet 00:00: mouth at [place] 00 bedtime. Medical Keep on Branch file. furosemide 0 Yes [id number] 80mg Take 2 Un mega (LASIX) 40 2-20 tablets by ity of mg tablet 00:00: mouth [place] 00 every Medical morning Branch and evening. Keep on file. furosemide 0 Yes [id number] 80mg Take 2 Un mega (LASIX) 40 2-20 tablets by ity of mg tablet 00:00: mouth [place] 00 every Medical morning Branch and evening. Keep on file. atorvastati 2018-0 Yes [id number] 40mg Take 1 Univers n 40 mg 2-20 tablet by ity of tablet 00:00: mouth at [place] 00 bedtime. Medical Keep on Branch file. atorvastati 2018-0 Yes [id number] 40mg Take 1 Univers n 40 mg 2-20 tablet by ity of tablet 00:00: mouth at [place] 00 bedtime. Medical Keep on Branch file. metOLazone 2018-0 Yes [id number] 5mg Take 1 Un mega 5 mg tablet 2-20 tablet by ity of 00:00: mouth [place] 00 weekly. Medical Take 30 Branch minutes before furosemide . furosemide 2018-0 Yes [id number] 80mg Take 2 Un mega (LASIX) 40 2-20 tablets by ity of mg tablet 00:00: mouth [place] 00 every Medical morning Branch and evening. Keep on file. atorvastati 2018-0 Yes [id number] 40mg Take 1 Univers n 40 mg 2-20 tablet by ity of tablet 00:00: mouth at [place] 00 bedtime. Medical Keep on Branch file. furosemide 2018-0 Yes [id number] 80mg Take 2 Un mega (LASIX) 40 2-20 tablets by ity of mg tablet 00:00: mouth [place] 00 every Medical morning Branch and evening. Keep on file. atorvastati 2019-0 Yes [id number] 40mg Take 1 Univers n 40 mg 2-20 tablet by ity of tablet 00:00: mouth at [place] 00 bedtime. Medical Keep on Branch file. furosemide 2019-0 Yes [id number] 80mg Take 2 Un mega (LASIX) 40 2-20 tablets by ity of mg tablet 00:00: mouth [place] 00 every Medical morning Branch and evening. Keep on file. atorvastati 2019-0 Yes [id number] 40mg Take 1 Univers n 40 mg 2-20 tablet by ity of tablet 00:00: mouth at [place] 00 bedtime. Medical Keep on Branch file. furosemide 2018-0 Yes [id number] 80mg Take 2 Un mega (LASIX) 40 2-20 tablets by ity of mg tablet 00:00: mouth [place] 00 every Medical morning Branch and evening. Keep on file. atorvastati 2018- Yes [id number] 40mg Take 1 Univers n 40 mg 2-20 tablet by ity of tablet 00:00: mouth at [place] 00 bedtime. Medical Keep on Branch file. furosemide 2018-0 Yes [id number] 80mg Take 2 Un mega (LASIX) 40 2-20 tablets by ity of mg tablet 00:00: mouth [place] 00 every Medical morning Branch and evening. Keep on file. atorvastati 2018-0 Yes [id number] 40mg Take 1 Univers n 40 mg 2-20 tablet by ity of tablet 00:00: mouth at [place] 00 bedtime. Medical Keep on Branch file. furosemide 2019-0 Yes [id number] 80mg Take 2 Un mega (LASIX) 40 2-20 tablets by ity of mg tablet 00:00: mouth [place] 00 every Medical morning Branch and evening. Keep on file. atorvastati 2019-0 Yes [id number] 40mg Take 1 Univers n 40 mg 2-20 tablet by ity of tablet 00:00: mouth at [place] 00 bedtime. Medical Keep on Branch file. furosemide 2019-0 Yes [id number] 80mg Take 2 Un mega (LASIX) 40 2-20 tablets by ity of mg tablet 00:00: mouth [place] 00 every Medical morning Branch and evening. Keep on file. atorvastati 2019-0 Yes [id number] 40mg Take 1 Univers n 40 mg 2-20 tablet by ity of tablet 00:00: mouth at [place] 00 bedtime. Medical Keep on Branch file. furosemide Yes [id number] 80mg Take 2 Un mega (LASIX) 40 2-20 tablets by ity of mg tablet 00:00: mouth [place] 00 every Medical morning Branch and evening. Keep on file. atorvastati Yes [id number] 40mg Take 1 Univers n 40 mg 2-20 tablet by ity of tablet 00:00: mouth at [place] 00 bedtime. Medical Keep on Branch file. metOLazone Yes [id number] 5mg Take 1 Un mega 5 mg tablet 2-20 tablet by ity of 00:00: mouth [place] 00 weekly. Medical Take 30 Branch minutes before furosemide . furosemide Yes [id number] 80mg Take 2 Un mega (LASIX) 40 2-20 tablets by ity of mg tablet 00:00: mouth [place] 00 every Medical morning Branch and evening. Keep on file. atorvastati Yes [id number] 40mg Take 1 Univers n 40 mg 2-20 tablet by ity of tablet 00:00: mouth at [place] 00 bedtime. Medical Keep on Branch file. metOLazone Yes [id number] 5mg Take 1 Un mega 5 mg tablet 2-20 tablet by ity of 00:00: mouth [place] 00 weekly. Medical Take 30 Branch minutes before furosemide . furosemide Yes [id number] 80mg Take 2 Un mega (LASIX) 40 2-20 tablets by ity of mg tablet 00:00: mouth [place] 00 every Medical morning Branch and evening. Keep on file. atorvastati Yes [id number] 40mg Take 1 Univers n 40 mg 2-20 tablet by ity of tablet 00:00: mouth at [place] 00 bedtime. Medical Keep on Branch file. metoprolol 2017-10 Yes [id number] 100mg Take 1 Univers tartrate 2-27 tablet by ity of 100 mg 00:00: mouth 2 [place] tablet 00 (two) Medical times Branch daily. metoprolol 2017-10 Yes [id number] 100mg Take 1 Univers tartrate 2-27 tablet by ity of 100 mg 00:00: mouth 2 [place] tablet 00 (two) Medical times Branch daily. metoprolol 2017-10 Yes [id number] 100mg Take 1 Univers tartrate 2-27 tablet by ity of 100 mg 00:00: mouth 2 [place] tablet 00 (two) Medical times Branch daily. metoprolol 2017-10 Yes [id number] 100mg Take 1 Univers tartrate 2-27 tablet by ity of 100 mg 00:00: mouth 2 [place] tablet 00 (two) Medical times Branch daily. metoprolol 2017-10 Yes [id number] 100mg Take 1 Univers tartrate 2-27 tablet by ity of 100 mg 00:00: mouth 2 [place] tablet 00 (two) Medical times Branch daily. metoprolol 2017-10 Yes [id number] 100mg Take 1 Univers tartrate 2-27 tablet by ity of 100 mg 00:00: mouth 2 [place] tablet 00 (two) Medical times Branch daily. metoprolol 2017-10 Yes [id number] 100mg Take 1 Univers tartrate 2-27 tablet by ity of 100 mg 00:00: mouth 2 [place] tablet 00 (two) Medical times Branch daily. metoprolol 2017-10 Yes [id number] 100mg Take 1 Univers tartrate 2-27 tablet by ity of 100 mg 00:00: mouth 2 [place] tablet 00 (two) Medical times Branch daily. metoprolol 2017-10 Yes [id number] 100mg Take 1 Univers tartrate 2-27 tablet by ity of 100 mg 00:00: mouth 2 [place] tablet 00 (two) Medical times Branch daily. metoprolol 2017-10 Yes [id number] 100mg Take 1 Univers tartrate 2-27 tablet by ity of 100 mg 00:00: mouth 2 [place] tablet 00 (two) Medical times Branch daily. metoprolol 2017-10 2020- No [id number] 100mg Take 1 Univers tartrate 2-27 03-16 [...] thiazide 14:51: mouth Medical (BENICAR 07 daily. [facility]) 40-25 mg per tablet rivaroxaban Yes 20mg QD Take [address] [facility] (XARELTO) 8-04 by mouth [facility] - 20 mg Tab 14:51: daily. Medica l tablet 07 [place] Alphagan P Alphagan P Yes Carlos not [...] Immunizations Ordered Filled Immunization Date Status Comments [facility] e Immunization Name Name SARS-COV-2 COVID-19 2020-11-14 Completed Unive rsity of MODERNA VACCINE 00:00:00 [facility] Branch SARS-COV-2 COVID-19 2020-10-17 Completed Unive rsity of MODERNA VACCINE 00:00:00 [facility] Branch PPD (TB) 2019-05-12 Completed University of 00:00:00 [facility] Pneumococcal 2019-05-12 Completed University o f Polysaccharide, 00:00:00 [facility] ical PPSV23 (PNEUMOVAX) Branch PPD (TB) 2019-05-12 Completed University of 00:00:00 [facility] Pneumococcal 2019-05-12 Completed University o f Polysaccharide, 00:00:00 [facility] ical PPSV23 (PNEUMOVAX) Branch PPD (TB) 2019-05-12 Completed University of 00:00:00 [facility] Pneumococcal 2019-05-12 Completed University o f Polysaccharide, 00:00:00 [facility] ical PPSV23 (PNEUMOVAX) Branch PPD (TB) 2019-05-12 Completed University of 00:00:00 [facility] Pneumococcal 2019-05-12 Completed University o f Polysaccharide, 00:00:00 [facility] ical PPSV23 (PNEUMOVAX) Branch PPD (TB) 2019-05-12 Completed University of 00:00:00 [facility] Pneumococcal 2019-05-12 Completed University o f Polysaccharide, 00:00:00 [facility] ical PPSV23 (PNEUMOVAX) Branch PPD (TB) 2019-05-12 Completed University of 00:00:00 [facility] Pneumococcal 2019-05-12 Completed University o f Polysaccharide, 00:00:00 [facility] ical PPSV23 (PNEUMOVAX) Branch PPD (TB) 2019-05-12 Completed University of 00:00:00 [facility] Pneumococcal 2019-05-12 Completed University o f Polysaccharide, 00:00:00 [facility] ical PPSV23 (PNEUMOVAX) Branch PPD (TB) 2019-05-12 Completed University of 00:00:00 [facility] Pneumococcal 2019-05-12 Completed University o f Polysaccharide, 00:00:00 [facility] ical PPSV23 (PNEUMOVAX) Branch PPD (TB) 2019-05-12 Completed University of 00:00:00 [facility] Pneumococcal 2019-05-12 Completed University o f Polysaccharide, 00:00:00 [facility] ical PPSV23 (PNEUMOVAX) Branch PPD (TB) 2019-05-12 Completed University of 00:00:00 [facility] Pneumococcal 2019-05-12 Completed University o f Polysaccharide, 00:00:00 [place] Med ical PPSV23 (PNEUMOVAX) Branch PPD (TB) 2019-05-12 Completed University of 00:00:00 [facility] Pneumococcal 2019-05-12 Completed University o f Polysaccharide, 00:00:00 [place] Med ical PPSV23 (PNEUMOVAX) Branch PPD (TB) 2019-05-12 Completed University of 00:00:00 [facility] Pneumococcal 2019-05-12 Completed University o f Polysaccharide, 00:00:00 [place] Med ical PPSV23 (PNEUMOVAX) Branch PPD (TB) 2019-05-12 Completed University of 00:00:00 [facility] Pneumococcal 2019-05-12 Completed University o f Polysaccharide, 00:00:00 [place] Med ical PPSV23 (PNEUMOVAX) Branch PPD (TB) 2019-05-12 Completed University of 00:00:00 [facility] Pneumococcal 2019-05-12 Completed University o f Polysaccharide, 00:00:00 [facility] ical PPSV23 (PNEUMOVAX) Branch PPD (TB) 2019-05-12 Completed University of 00:00:00 [facility] Pneumococcal 2019-05-12 Completed University o f Polysaccharide, 00:00:00 [facility] ical PPSV23 (PNEUMOVAX) Branch PPD (TB) 2019-05-12 Completed University of 00:00:00 [facility] Pneumococcal 2019-05-12 Completed University o f Polysaccharide, 00:00:00 [facility] ical PPSV23 (PNEUMOVAX) Branch PPD (TB) 2019-05-12 Completed University of 00:00:00 [facility] Pneumococcal 2019-05-12 Completed University o f Polysaccharide, 00:00:00 [facility] ical PPSV23 (PNEUMOVAX) Branch Influenza Virus 2018-07-14 Completed Universit y of Vaccine 00:00:00 [facility] Influenza Virus 2018-07-14 Completed Universit y of Vaccine 00:00:00 [facility] Influenza Virus 2018-07-14 Completed Universit y of Vaccine 00:00:00 [facility] Influenza Virus 2018-07-14 Completed Universit y of Vaccine 00:00:00 [facility] Influenza Virus 2018-07-14 Completed Universit y of Vaccine 00:00:00 [facility] Influenza Virus 2018-07-14 Completed Universit y of Vaccine 00:00:00 [facility] Influenza Virus 2018-07-14 Completed Universit y of Vaccine 00:00:00 [facility] Influenza Virus 2018-07-14 Completed Universit y of Vaccine 00:00:00 [facility] Influenza Virus 2018-07-14 Completed Universit y of Vaccine 00:00:00 [facility] Influenza Virus 2018-07-14 Completed Universit y of Vaccine 00:00:00 [facility] Influenza Virus 2018-07-14 Completed Universit y of Vaccine 00:00:00 [facility] Influenza Virus 2018-07-14 Completed Universit y of Vaccine 00:00:00 [facility] Influenza Virus 2018-07-14 Completed Universit y of Vaccine 00:00:00 [facility] Influenza Virus 2018-07-14 Completed Universit y of Vaccine 00:00:00 [facility] Influenza Virus 2018-07-14 Completed Universit y of Vaccine 00:00:00 [facility] Influenza Virus 2018-07-14 Completed Universit y of Vaccine 00:00:00 [facility] Influenza Virus 2018-07-14 Completed Universit y of Vaccine 00:00:00 [facility] Influenza High Dose 2017-07-27 Completed Unive rsity of 00:00:00 [facility] Influenza High Dose 2017-07-27 Completed Unive rsity of 00:00:00 [facility] Influenza High Dose 2017-07-27 Completed Unive rsity of 00:00:00 [facility] Influenza High Dose 2017-07-27 Completed Unive rsity of 00:00:00 [facility] Influenza High Dose 2017-07-27 Completed Unive rsity of 00:00:00 [facility] Influenza High Dose 2017-07-27 Completed Unive rsity of 00:00:00 [facility] Influenza High Dose 2017-07-27 Completed Unive rsity of 00:00:00 [facility] Influenza High Dose 2017-07-27 Completed Unive rsity of 00:00:00 [facility] Influenza High Dose 2017-07-27 Completed Unive rsity of 00:00:00 [facility] Influenza High Dose 2017-07-27 Completed Unive rsity of 00:00:00 [facility] Influenza High Dose 2017-07-27 Completed Unive rsity of 00:00:00 [facility] Influenza High Dose 2017-07-27 Completed Unive rsity of 00:00:00 [facility] Influenza High Dose 2017-07-27 Completed Unive rsity of 00:00:00 [facility] Influenza High Dose 2017-07-27 Completed Unive rsity of 00:00:00 [facility] Influenza High Dose 2017-07-27 Completed Unive rsity of 00:00:00 [facility] Influenza High Dose 2017-07-27 Completed Unive rsity of 00:00:00 [facility] Influenza High Dose 2017-07-27 Completed Unive rsity of 00:00:00 [facility] DTAP 2016-09-11 Completed University of 00:00:00 [facility] Pneumococcal 13 2016-09-11 Completed Universit y of Conjugate, PCV13 00:00:00 [facility] dical (Prevnar 13) Branch DTAP 2016-09-11 Completed University of 00:00:00 [facility] Pneumococcal 13 2016-09-11 Completed Universit y of Conjugate, PCV13 00:00:00 [facility] dical (Prevnar 13) Branch DTAP 2016-09-11 Completed University of 00:00:00 [facility] Pneumococcal 13 2016-09-11 Completed Universit y of Conjugate, PCV13 00:00:00 [facility] dical (Prevnar 13) Branch DTAP 2016-09-11 Completed University of 00:00:00 [facility] Pneumococcal 13 2016-09-11 Completed Universit y of Conjugate, PCV13 00:00:00 [facility] dical (Prevnar 13) Branch DTAP 2016-09-11 Completed University of 00:00:00 [facility] Pneumococcal 13 2016-09-11 Completed Universit y of Conjugate, PCV13 00:00:00 [facility] dical (Prevnar 13) Branch DTAP 2016-09-11 Completed University of 00:00:00 [facility] Pneumococcal 13 2016-09-11 Completed Universit y of Conjugate, PCV13 00:00:00 [facility] dical (Prevnar 13) Branch DTAP 2016-09-11 Completed University of 00:00:00 [facility] Pneumococcal 13 2016-09-11 Completed Universit y of Conjugate, PCV13 00:00:00 [facility] dical (Prevnar 13) Branch DTAP 2016-09-11 Completed University of 00:00:00 [facility] Pneumococcal 13 2016-09-11 Completed Universit y of Conjugate, PCV13 00:00:00 [facility] dical (Prevnar 13) Branch DTAP 2016-09-11 Completed University of 00:00:00 [facility] Pneumococcal 13 2016-09-11 Completed Universit y of Conjugate, PCV13 00:00:00 [facility] dical (Prevnar 13) Branch DTAP 2016-09-11 Completed University of 00:00:00 [facility] Pneumococcal 13 2016-09-11 Completed Universit y of Conjugate, PCV13 00:00:00 [facility] dical (Prevnar 13) Branch DTAP 2016-09-11 Completed University of 00:00:00 [facility] Pneumococcal 13 2016-09-11 Completed Universit y of Conjugate, PCV13 00:00:00 [facility] dical (Prevnar 13) Branch DTAP 2016-09-11 Completed University of 00:00:00 [facility] Pneumococcal 13 2016-09-11 Completed Universit y of Conjugate, PCV13 00:00:00 [facility] dical (Prevnar 13) Branch DTAP 2016-09-11 Completed University of 00:00:00 [facility] Pneumococcal 13 2016-09-11 Completed Universit y of Conjugate, PCV13 00:00:00 [facility] dical (Prevnar 13) Branch DTAP 2016-09-11 Completed University of 00:00:00 [facility] Pneumococcal 13 2016-09-11 Completed Universit y of Conjugate, PCV13 00:00:00 [facility] dical (Prevnar 13) Branch DTAP 2016-09-11 Completed University of 00:00:00 [facility] Pneumococcal 13 2016-09-11 Completed Universit y of Conjugate, PCV13 00:00:00 [facility] dical (Prevnar 13) Branch DTAP 2016-09-11 Completed University of 00:00:00 [facility] Pneumococcal 13 2016-09-11 Completed Universit y of Conjugate, PCV13 00:00:00 [facility] dical (Prevnar 13) Branch DTAP 2016-09-11 Completed University of 00:00:00 [facility] Pneumococcal 13 2016-09-11 Completed Universit y of Conjugate, PCV13 00:00:00 [facility] dical (Prevnar 13) Branch Influenza High Dose 2016-07-02 Completed Unive rsity of 00:00:00 [facility] Influenza High Dose 2016-07-02 Completed Unive rsity of 00:00:00 [facility] Influenza High Dose 2016-07-02 Completed Unive rsity of 00:00:00 [facility] Influenza High Dose 2016-07-02 Completed Unive rsity of 00:00:00 [facility] Influenza High Dose 2016-07-02 Completed Unive rsity of 00:00:00 [facility] Influenza High Dose 2016-07-02 Completed Unive rsity of 00:00:00 [facility] Influenza High Dose 2016-07-02 Completed Unive rsity of 00:00:00 [facility] Influenza High Dose 2016-07-02 Completed Unive rsity of 00:00:00 [facility] Influenza High Dose 2016-07-02 Completed Unive rsity of 00:00:00 [facility] Influenza High Dose 2016-07-02 Completed Unive rsity of 00:00:00 [facility] Influenza High Dose 2016-07-02 Completed Unive rsity of 00:00:00 [facility] Influenza High Dose 2016-07-02 Completed Unive rsity of 00:00:00 [facility] Influenza High Dose 2016-07-02 Completed Unive rsity of 00:00:00 [facility] Influenza High Dose 2016-07-02 Completed Unive rsity of 00:00:00 [facility] Influenza High Dose 2016-07-02 Completed Unive rsity of 00:00:00 [facility] Influenza High Dose 2016-07-02 Completed Unive rsity of 00:00:00 [facility] Influenza High Dose 2016-07-02 Completed Unive rsity of 00:00:00 [facility] Zoster(Zostavax)( 2013-09-22 Completed Unive rsity of ingles) 00:00:00 [facility] Zoster(Zostavax)( 2013-09-22 Completed Unive rsity of ingles) 00:00:00 [facility] Zoster(Zostavax)( 2013-09-22 Completed Unive rsity of ingles) 00:00:00 [facility] Zoster(Zostavax)( 2013-09-22 Completed Unive rsity of ingles) 00:00:00 [facility] Zoster(Zostavax)( 2013-09-22 Completed Unive rsity of ingles) 00:00:00 [facility] Zoster(Zostavax)( 2013-09-22 Completed Unive rsity of ingles) 00:00:00 [facility] Zoster(Zostavax)( 2013-09-22 Completed Unive rsity of ingles) 00:00:00 [facility] Zoster(Zostavax)( 2013-09-22 Completed Unive rsity of ingles) 00:00:00 [facility] Zoster(Zostavax)( 2013-09-22 Completed Unive rsity of ingles) 00:00:00 [facility] Zoster(Zostavax)( 2013-09-22 Completed Unive rsity of ingles) 00:00:00 [facility] Zoster(Zostavax)( 2013-09-22 Completed Unive rsity of ingles) 00:00:00 [facility] Zoster(Zostavax)( 2013-09-22 Completed Unive rsity of ingles) 00:00:00 [facility] Zoster(Zostavax)( 2013-09-22 Completed Unive rsity of ingles) 00:00:00 [facility] Zoster(Zostavax)( 2013-09-22 Completed Unive rsity of ingles) 00:00:00 [facility] Zoster(Zostavax)( 2013-09-22 Completed Unive rsity of ingles) 00:00:00 [facility] Zoster(Zostavax)( 2013-09-22 Completed Unive rsity of ingles) 00:00:00 [facility] Zoster(Zostavax)( 2013-09-22 Completed Unive rsity of ingles) 00:00:00 [facility] Vital Signs Vital Name Observation Time Observation Value Comments Source Systolic blood 2021-09-16 19:00:00 155 mm[Hg] Univer sity of pressure [facility] Diastolic blood 2021-09-16 19:00:00 57 mm[Hg] Unive rsity of pressure [facility] Heart rate 2021-09-16 19:00:00 54 /min [facility]i [facility] Respiratory rate 2021-09-16 19:00:00 17 /[facility] in 2021-09-16 19:00:00 98 /min [facility] Arterial blood by [facility] Pulse oximetry Branch Body temperature 2021-09-16 17:42:00 36.72 Nicole Univ ersity of [facility] Body height 2021-09-16 17:42:00 167.6 cm [facility] Body weight 2021-09-16 17:42:00 76.204 kg [facility] BMI 2021-09-16 17:42:00 27.12 kg/m2 Universi ty of [facility] Systolic blood 2019-11-09 18:57:00 131 mm[Hg] Univer sity of pressure [facility] Diastolic blood 2019-11-09 18:57:00 81 mm[Hg] Unive rsity of pressure [facility] Heart rate 2019-11-09 18:57:00 90 /min Universi ty of [facility] Body temperature 2019-11-09 18:57:00 36.17 Nicole Univ ersity of [facility] Respiratory rate 2019-11-09 18:57:00 20 /min Univ ersity of [facility] Body height 2019-11-09 18:57:00 165.1 cm [facility] Body weight 2019-11-09 18:57:00 76.2 kg [facility] BMI 2019-11-09 18:57:00 27.96 kg/m2 Universi ty of [facility] Systolic blood 2019-11-09 18:57:00 131 mm[Hg] [facility] Diastolic blood 2019-11-09 18:57:00 81 mm[Hg] Unive rsity of pressure [facility] Heart rate 2019-11-09 18:57:00 90 /min [facility] Body temperature 2019-11-09 18:57:00 36.17 Nicole Univ ersity of [facility] Respiratory rate 2019-11-09 18:57:00 20 /min Univ ersity of [facility] Body height 2019-11-09 18:57:00 165.1 cm [facility] Body weight 2019-11-09 18:57:00 76.2 kg [facility] BMI 2019-11-09 18:57:00 27.96 kg/m2 Universi ty of [facility] Body temperature 2019-05-14 20:50:00 35.72 Nicole Univ ersity of [facility] Body temperature 2019-05-12 18:28:00 36.22 Nicole [facility] Body weight 2019-05-12 18:28:00 72.621 kg [facility] BMI 2019-05-12 18:28:00 25.84 kg/m2 [facility] Procedures Procedure Date / Time Performing Clinician Source Performed URINALYSIS 2021-09-16 18:12:00 Elif Andino [facility] NOTICE OF PRIVACY 2021-09-16 17:32:53 Doctor Unassigned, No [facility] PRACTICES Name [facility] CONSENT/REFUSAL FOR 2021-09-16 17:32:23 Doctor Unassigned, [facility] SCANNED LAB RESULTS 2019-11-09 06:01:00 [facility]assigned, [facility] ([facility] 2019-05-12 19:26:19 Irma [place] [facility] PNEUMOCOCCAL VACCINE, 2019-05-12 19:26:19 Irma [place] [facility] 23-VALENT (PNEUMOVAX) [facility] anch Encounters Start End Encounter Admission Attending Care Care Encounter Source Date/Time Date/Time Type Type Clinicians Facility Department ID 2021-09-16 2021-09-16 Emergency X REAL ANDINO ERT [id number] [facility] 11:39:00 13:56:00 ELIF ruby [facility] 2021-09-16 2021-09-16 Emergency Rashad GASAUNDRA 1.2.840.114 [id number] Univers 11:39:00 13:56:00 [facility]RIQUEZ [id number] [facility] [id number] [facility] [phone] [facility] catherine 084 Branch 2021-09-11 2021-09-11 ambulatory [facility]ML[facility] [id number] [facility] 2021-09-11 2021-09-11 ambulatory [facility]ML[facility] [id number] [facility] 2021-08-142021-08-14 ambulatory [facility]MLC [facility] [id number] [facility] 2021-07-26 2021-07-26 Outpatient [facility]ML[facility] [id number] [facility] 2021-06-29 2021-06-29 Outpatient [facility] [id number] [facility] 2021-06-14 2021-06-14 Outpatient [facility]MLC [facility] [id number] [facility] 2021-04-20 2021-04-20 Outpatient [facility]MLC [facility] [id number] [facility] 2021-04-12 2021-04-12 Outpatient [facility]LMLC [facility] [id number] [facility] 2021-04-04 2021-04-04 Outpatient [facility]MLC [facility] [id number] [facility] 2021-04-03 2021-04-03 Outpatient [facility]MLC [facility] [id number] [facility] 2021-02-20 2021-02-20 Outpatient [facility]MLC [facility] [id number] [facility] 2021-01-30 2021-01-30 Outpatient [facility]LMLC [facility] [id number] [facility] 2020-12-19 2020-12-19 Outpatient STLMLC [facility] [id number] [facility] 2020-11-14 2020-11-14 Outpatient Homer NASSAR [facility] [id number] Univers 14:30:00 14:30:00 PORTER [id number] [facility] 2020-11-14 2020-11-14 Outpatient R CESARIO, [facility] [id number] Univers 14:30:00 14:30:00 [facility] 2020-10-17 2020-10-17 Outpatient R CESARIO, [facility] [id number] Univers 14:20:00 14:20:00 [facility] [id number] [facility] 2020-10-17 2020-10-17 Outpatient R CESARIO, [facility] [id number] Univers 14:20:00 14:20:00 PORTER [facility] 2020-10-17 2020-10-17 Outpatient R CESARIO, [facility] [id number] Univers 14:20:00 14:20:00 PORTER [facility] 2020-07-18 2020-07-18 [facility] [id number] Univers 00:00:00 00:00:00 Irma A [facility] [id number] ity of [place] [id number] [place] as Professio [phone] [address] 2020-07-18 2020-07-18 [facility] 1.2.840.114 [id number] 00:00:00 00:00:00 Irma A [facility] [id number] [place] [id number] Professio [phone] [place] [address] Office [facility] 2020-06-03 2020-06-03 [facility] [place], [facility] 1.2.840.114 [id number] [facility] 00:00:00 00:00:00 Irma A Health [id number] ity of [place] [id number] [place] Professio [phone] [address] Office [facility] 2020-06-03 2020-06-03 [facility] [place], [facility] 1.2.840.114 [id number] 00:00:00 00:00:00 Irma A [facility] [id number] [place] [id number] Professio [phone] [facility] 044 Office [address] 2020-05-24 2020-05-24 Outpatient Roxanne Oliveirat [id number] [facility] 11:00:00 11:00:00 [facility] ent Clinics 2020-05-17 2020-05-17 Outpatient Roxanne Oliveirat [id number] [facility] 09:08:00 09:08:00 [facility] ent Clinics 2020-05-02 2020-05-02 Outpatient Roxanne Oliveirat [id number] 10:30:00 10:30:00 [facility] ent [facility] 2020-03-03 2020-03-03 Refill [facility] 1.2.840.114 [id number] [facility] 00:00:00 00:00:00 Irma A [place] [id number] [id number] [phone] [address] 2020-03-03 2020-03-03 Refill [facility] 1.2.840.114 [id number] 00:00:00 00:00:00 Irma A [place] [id number] [place] [id number] Professio [phone] [address] 2020-03-01 2020-03-01 Telephone [facility] 1.2.840.114 [id number] [facility] 00:00:00 00:00:00 Irma A [place] [id number] [id number] [phone] [address] 2020-03-01 2020-03-01 Telephone [facility] 1.2.840.114 [id number] 00:00:00 00:00:00 Irma A [place] [id number] [place] [id number] Professio [phone] [address] 2020-02-26 2020-02-26 Refill Aditi, [facility] 1.2.840.114 [id number] [facility] 00:00:00 00:00:00 Irma A [place] [id number] [id number] [phone] Al dic[address] 2020-02-26 2020-02-26 Refill Aditi, [facility] 1.2.840.114 [id number] 00:00:00 00:00:00 Irma A [place] [id number] [place] [id number] Professio [phone] [address] 2019-12-26 2019-12-26 Refill Aditi, [facility] 1.2.840.114 [id number] [facility] 00:00:00 00:00:00 Irma A [place] [id number] [id number] [phone] [address] 2019-12-26 2019-12-26 Refill Aditi, [facility] 1.2.840.114 [id number] 00:00:00 00:00:00 Irma A [place] [id number] [place] [id number] Professio [phone] [address] 2019-12-08 2019-12-08 Telephone Dex Fair [facility] 1.2.840.114 [id number] [facility] 00:00:00 00:00:00 W SPECIALTY [id number] [id number] [phone] [address] 2019-12-08 2019-12-08 Telephone Dex Fair [facility] 1.2.840.114 [id number] 00:00:00 00:00:00 W SPECIALTY [id number] [place] [id number] [place] [id number] [facility] 2019-12-01 2019-12-01 Telephone [facility] 1.2.016.350 [id number] [facility] 00:00:00 00:00:00 Rosario SPECIALTY [id number] [id number] [phone] [address] 2019-12-01 2019-12-01 [facility] 1.2.840.114 [id number] [facility] 00:00:00 00:00:00 Irma Enriquez [id number] [id number] [phone] [address] 2019-12-01 2019-12-01 [facility] [id number] 00:00:00 00:00:00 Rosario SPECIALTY [id number] [place] [id number] [place] [phone] [facility] 2019-12-01 2019-12-01 [facility] 1.2.840.114 [id number] 00:00:00 00:00:00 Irma Enriquez [id number] [place] [id number] Professio [phone] [address] 2019-11-26 2019-11-26 Refaylin [place] [facility] 1.2.840.114 [id number] [facility] 00:00:00 00:00:00 Irma Enriquez [id number] [id number] [phone] [address] 2019-11-09 2019-11-09 Office Rosario Lopez [facility] 1.2.840. 114 [id number] [facility] 12:48:32 13:48:32 Visit Dex Fair SPECIALTY [id number] [id number] [phone] [address] 2019-11-09 2019-11-09 Office Jessica [facility] 1.2.840.114 [id number] 12:48:32 13:48:32 Visit Rosario [place] [id number] [place] [id number] [place] [phone] [facility] 2019-11-09 2019-11-09 Orders Doctor AUBRIE 1.2.840.114 [id number] Univers 00:00:00 00:00:00 Only Unassigned, [place] [id number] ity of [place] [facility] [id number] Shine as [phone] [address] 2019-11-09 2019-11-09 Orders Doctor AUBRIE 1.2.840.114 [id number] 00:00:00 00:00:00 Only Unassigned, [place] [id number] [place] [facility] 4.2.7.2.686 [phone] 009 2019-05-14 2019-05-14 Nurse Nurse, [facility] 1.2.840.114 [id number] Univers 15:28:41 15:43:41 Visit Irma [place] 350.1. 13.10 [id number] [phone] Al dical [facility] 044 [facility] 2019-05-14 2019-05-14 Juan [place] [facility] 1.2.840.114 [id number] Univers 00:00:00 00:00:00 (Out) Irma Enriquez [id number] [id number] [phone] Al vignesh flores 231 [facility] 2019-05-12 2019-05-12 Nurse Nurse, [facility] 1.2.840.114 [id number] [facility] 13:01:21 15:09:23 Visit Irma [place] 350.1. 13.10 [id number] [phone] Al dical nal 044 [facility] 2019-03-26 2019-03-26 [facility] [id number] 08:00:00 08:00:00 [facility] ent [facility] 2019-01-12 2019-01-12 Out[facility] [id number] 11:00:00 11:00:00 [facility] Results Test Description Test Time Test Comments Results Result Comments Source HEMOGLOBIN A1C 2017-05-16 21:48:00 Test Item Value Reference Range Interpretation Comme nts HEMOGLOBIN A1C (BEAKER) (test code = 368) 6.2 % 4.3-6.1 H [id number] 07:10:00 Test Item Value Reference Range Interpretation Comments MAGNESIUM (BEAKER) (test code = 1.9 mg/dL 1.6-2.6 627) BASIC METABOLIC [id number] 07:10:00 Test Item Value Reference Range Interpretation [...] WBC 0-0 (BEAKER) (test code = 413) [id number] 05:45:00 Test Item Value Reference Range Interpretation Comments MAGNESIUM (BEAKER) 2.3 mg/dL 1.6-2.6 Specimen moderately (test code = 627) hemolyzed COMPREHENSIVE METABOLIC [id number] 05:45:00 Test Item Value Reference Range Interpretation [...] S NOT APPLICABLE FOR DIALYSIS PATIEN TS. [id number] 11:50:00 Test Item Value Reference Range Interpretation Comments RPR SCREEN (BEAKER) (test code = Nonreactive Nonreactive 420) BASIC METABOLIC [id number] 06:28:00 Test Item Value Reference Range Interpretation [...] NOT APPLICABLE FOR DIALYSIS PATIEN TS. FastingLIPID [id number] 06:28:00 Test Item Value Reference Range Interpretation [...] 160-189 Very High >=190 FastingVITAMIN B12 AND [id number] 04:10:00 Test Item Value Reference Range Interpretation Comments VITAMIN B12 (BEAKER) (test code = 514 pg/mL 213-816 774) FOLATE (BEAKER) (test code = 362) > ng/mL >=7.0 Effective 08/31/2014: Folate Reference Range ChangeNew: >=7.0 Previous: >=5.4TSH/FREE T4 IF [id number] 02:52:00 Test Item Value Reference Range Interpretation Comments THYROID STIMULATING HORMONE 2.55 uIU/mL 0.35-4.94 (BEAKER) (test code = 772) SEDIMENTATION [id number] 01:10:00 Test Item Value Reference Range Interpretation Comments SEDIMENTATION RATE, ERYTHROCYTE 6 mm/HR 0-40 (BEAKER) (test code = 766) [id number] 00:35:00 Test Item Value Reference Range Interpretation Comments HOMOCYSTEINE (BEAKER) (test code = 8.5 umol/L 5.1-15.4 642) URINALYSIS W/ [id number] 00:30:00 Test Item Value Reference Range Interpretation [...] (test code = Urine, Voided 2795) TROPONIN [id number] 00:23:00 Test Item Value Reference Range Interpretation [...] acute neurological disease, and persistent tachyarrhythmia.HEPATIC FUNCTION [id number] 00:17:00 Test Item Value Reference Range Interpretation [...] = 31 U/L 6-55 347) BASIC METABOLIC [id number] 00:17:00 Test Item Value Reference Range Interpretation [...] NOT APPLICABLE FOR DIALYSIS PATIEN TS. C-REACTIVE [id number] 00:17:00 Test Item Value Reference Range Interpretation Comments C-REACTIVE PROTEIN (BEAKER) (test 0.55 mg/dL 0.00-0.50 H code = 676) PROTHROMBIN [id number] 00:07:00 Test Item Value Reference Range Interpretation [...]
--- NOTE | 2021-09-26 23:32 | ER ---
Nurse's Notes [facility] Name: Irene Bauer Age: 80 yrs Sex: Female : 1940 Arrival Date: 09/26/2021 Time: 22:04 Bed 6 Private MD: Diagnosis: Fall on same level, unspecified;Contusion of other part of head Presentation: 09/26 22:10 Chief complaint: EMS states: pt was walking to the bathroom and slipped and fell, pt as6 hit back of head, no LOC or n/v, pt was dizzy on seen, pt denies dizziness at time of triage. Care prior to arrival: Cervical collar in place. Mechanism of Injury: Fall from standing position. Trauma event details: Injury occurred in the [facility]. 22:10 Acuity: ISELA 3 as6 22:10 Method Of Arrival: EMS: [facility] as6 22:23 Coronavirus screen: Vaccine status: Patient reports receiving the 2nd dose of the covid as6 vaccine. At this time, the client does not indicate any symptoms associated with coronavirus-19. Ebola Screen: No symptoms or risks identified at this time. Initial Sepsis Screen: Does the patient meet any 2 criteria? No. Patient's initial sepsis screen is negative. Does the patient have a suspected source of infection? No. Patient's initial sepsis screen is negative. Risk Assessment: Do you want to hurt yourself or someone else? Patient reports no desire to harm self or others. Onset of symptoms was September 26, 2021. Historical: - Allergies: 22:16 NKA; as6 - Home Meds: 22:16 alphagan 5 ml nightly [Active]; atorvastatin 40 mg oral tab 1 tab once daily [Active]; as6 famotidine 40 mg Oral tab 1 tab once daily [Active]; furosemide 40 mg Oral tab 2 tabs 2 times per day [Active]; gabapentin 100 mg oral tab daily [Active]; metolazone 2.5 mg oral tab 1 tab once a week [Active]; metoprolol tartrate 50 mg Oral tab 1 tab 2 times per day [Active]; Xarelto 15 mg oral tab 1 tab once daily [Active]; - PMHx: 22:16 Atrial Fib; Cataracts; CHF; colon cancer; Glaucoma; Hypertension; NOSE BLEEDS; as6 osteoarthritis of spine; Osteopenia; Osteoporosis; TIA; - PSHx: 22:16 Total abdominal hysterectomy; spine; as6 - Immunization history: Last tetanus immunization: - up to date. - Social history:: Smoking status: Patient denies any tobacco usage or history of. Screenin:15 Abuse screen: Denies threats or abuse. Nutritional screening: No deficits noted. as6 Tuberculosis screening: No symptoms or risk factors identified. Fall Risk Fall in past 12 months (25 points). Secondary diagnosis (15 points) impaired mobility, No IV (0 pts). Ambulatory Aid- Crutches/Cane/Walker (15 pts). Gait- Normal/Bed Rest/Wheelchair (0 pts) Mental Status- Oriented to own ability (0 pts). Total Puri Fall Scale indicates High Risk Score (45 or more points). Side Rails Up X 2 Frequent Obs/Assessments Occuring As available patient and family educated on Fall Prevention Program and Strategies. Primary Survey: 22:13 NO uncontrolled hemorrhage observed. Breathing/Chest: Respiratory pattern: regular, as6 Respiratory effort: spontaneous, Breath sounds: clear, bilaterally. Chest inspection: symmetrical rise and fall of the chest. Circulation: Pulses: palpable . Disability Alert. Exposure/Environment: A warming method has been applied: A warm blanket has been provided to the patient. Reassessment Breathing/Chest Respiratory pattern Regular Respiratory effort Spontaneous Breath sounds Clear Chest inspection Symmetrical Circulation Pulses Palpable Disability Alert. Assessment: 22:12 General: Appears in no apparent distress. comfortable, Behavior is calm, cooperative. as6 Pain: Denies pain. Neuro: Level of Consciousness is awake, alert, obeys commands, Oriented to person, place, time, situation. Cardiovascular: Capillary refill < 3 seconds Patient's skin is warm and dry. Rhythm is atrial fibrillation. Respiratory: Airway is patent Trachea midline Respiratory effort is even, unlabored, Respiratory pattern is regular, symmetrical. Derm: Skin is intact. Vital Signs: 22:14 BP 127 / 83; Pulse 112; Resp 19 S; Temp 98.5(O); Pulse Ox 98% on R/A; Weight 77.56 kg as6 (R); Height 5 ft. 5 in. (165.10 cm); Pain 0/10; 23:21 BP 137 / 89; Pulse 97; Resp 18; Pulse Ox 96% on R/A; as6 22:14 Body Mass Index 28.46 (77.56 kg, 165.10 cm) as6 Fallon Coma Score: 22:14 Eye Response: spontaneous(4). Verbal Response: oriented(5). Motor Response: obeys as6 commands(6). Total: 15. 23:29 Eye Response: spontaneous(4). Verbal Response: oriented(5). Motor Response: obeys wan commands(6). Total: 15. Trauma Score (Adult): 22:14 Eye Response: spontaneous(1); Verbal Response: oriented(1); Motor Response: obeys as6 commands(2); Systolic BP: > 89 mm Hg(4); Respiratory Rate: 10 to 29 per min(4); Fallon Score: 15; Trauma Score: 12 ED Course: 22:04 Patient arrived in ED. wm 22:05 Td Yancey MD is Attending Physician. wan 22:10 Kermit Burgos, RN is Primary Nurse. as6 22:12 Triage completed. as6 22:15 Patient has correct armband on for positive identification. Bed in low position. Call as6 light in reach. Side rails up X2. telemetry monitor on. Pulse ox on. NIBP on. 22:24 Arm band placed on. as6 22:24 Patient maintains SpO2 saturation greater than 95% on room air. as6 22:24 Thermoregulation: warm blanket given to patient. as6 22:47 CT Head C Spine In Process Unspecified. EDAK 09/27 00:00 No provider procedures requiring assistance completed. Patient did not have IV access as6 during this emergency room visit. Administered Medications: No medications were administered Intake: 00:01 PO: 0ml; Total: 0ml. as6 Output: 00:01 Urine: 0ml; Total: 0ml. as6 Outcome: 09/26 23:31 Discharge ordered by . wan 23:56 Patient left the ED. da3 09/27 00:00 Discharged to detention. as6 Condition: stable Discharge instructions given to patient, family, Instructed on discharge instructions, follow up and referral plans. Demonstrated understanding of instructions, follow-up care. 00:01 Patient's length of stay in the Emergency Department was greater than 2 hours. pending as6 dcPatient's length of stay extended due to Signatures: Dispatcher [employer] EDAK Td Yancey MD MD cha Marsh, Wendy wm Allan, David, RN RN da3 Kermit Burgos, RONEN RN as6
--- NOTE | 2021-09-26 23:32 | EDPHYS ---
Physician Documentation [facility] Name: Irene Bauer Age: 80 yrs Sex: Female : 1940 Arrival Date: 09/26/2021 Time: 22:04 Bed 6 Private MD: ED Physician Td Yancey HPI: 09/26 22:23 This 80 yrs old Female presents to ER via EMS with complaints of Fall Injury. wan 22:23 Details of fall: The patient fell from an upright position, while walking. Onset: The wan symptoms/episode began/occurred 2 day(s) ago. Associated injuries: The patient sustained injury to the head, neck injury. Severity of symptoms: At their worst the symptoms were mild, in the emergency department the symptoms are unchanged. The patient has not experienced similar symptoms in the past. Historical: - Allergies: 22:16 NKA; as6 - Home Meds: 22:16 alphagan 5 ml nightly [Active]; atorvastatin 40 mg oral tab 1 tab once daily [Active]; as6 famotidine 40 mg Oral tab 1 tab once daily [Active]; furosemide 40 mg Oral tab 2 tabs 2 times per day [Active]; gabapentin 100 mg oral tab daily [Active]; metolazone 2.5 mg oral tab 1 tab once a week [Active]; metoprolol tartrate 50 mg Oral tab 1 tab 2 times per day [Active]; Xarelto 15 mg oral tab 1 tab once daily [Active]; - PMHx: 22:16 Atrial Fib; Cataracts; CHF; colon cancer; Glaucoma; Hypertension; NOSE BLEEDS; as6 osteoarthritis of spine; Osteopenia; Osteoporosis; TIA; - PSHx: 22:16 Total abdominal hysterectomy; spine; as6 - Immunization history: Last tetanus immunization: - up to date. - Social history:: Smoking status: Patient denies any tobacco usage or history of. ROS: 22:26 Constitutional: Negative for fever, chills, and weight loss, Eyes: Negative for injury, wan pain, redness, and discharge, ENT: Negative for injury, pain, and discharge, Cardiovascular: Negative for chest pain, palpitations, and edema, Respiratory: Negative for shortness of breath, cough, wheezing, and pleuritic chest pain, Abdomen/GI: Negative for abdominal pain, nausea, vomiting, diarrhea, and constipation, Back: Negative for injury and pain, : Negative for injury, bleeding, discharge, and swelling, MS/Extremity: Negative for injury and deformity, Skin: Negative for injury, rash, and discoloration, Psych: Negative for depression, anxiety, suicide ideation, homicidal ideation, and hallucinations, Allergy/Immunology: Negative for hives, rash, and allergies, Endocrine: Negative for neck swelling, polydipsia, polyuria, polyphagia, and marked weight changes, Hematologic/Lymphatic: Negative for swollen nodes, abnormal bleeding, and unusual bruising. 22:26 Neck: Positive for pain with movement, pain at rest. 22:26 Neuro: Positive for headache. Exam: 22:26 Constitutional: This is a well developed, well nourished patient who is awake, alert, wan and in no acute distress. Head/Face: Normocephalic, atraumatic. Eyes: Pupils equal round and reactive to light, extra-ocular motions intact. Lids and lashes normal. Conjunctiva and sclera are non-icteric and not injected. Cornea within normal limits. Periorbital areas with no swelling, redness, or edema. ENT: Nares patent. No nasal discharge, no septal abnormalities noted. Tympanic membranes are normal and external auditory canals are clear. Oropharynx with no redness, swelling, or masses, exudates, or evidence of obstruction, uvula midline. Mucous membranes moist. Chest/axilla: Normal chest wall appearance and motion. Nontender with no deformity. No lesions are appreciated. Cardiovascular: Regular rate and rhythm with a normal S1 and S2. No gallops, murmurs, or rubs. Normal PMI, no JVD. No pulse deficits. Respiratory: Lungs have equal breath sounds bilaterally, clear to auscultation and percussion. No rales, rhonchi or wheezes noted. No increased work of breathing, no retractions or nasal flaring. Abdomen/GI: Soft, non-tender, with normal bowel sounds. No distension or tympany. No guarding or rebound. No evidence of tenderness throughout. Back: No spinal tenderness. No costovertebral tenderness. Full range of motion. Skin: Warm, dry with normal turgor. Normal color with no rashes, no lesions, and no evidence of cellulitis. MS/ Extremity: Pulses equal, no cyanosis. Neurovascular intact. Full, normal range of motion. Neuro: Awake and alert, GCS 15, oriented to person, place, time, and situation. Cranial nerves II-XII grossly intact. Motor strength 5/5 in all extremities. Sensory grossly intact. Cerebellar exam normal. Normal gait. Psych: Awake, alert, with orientation to person, place and time. Behavior, mood, and affect are within normal limits. 22:26 Neck: External neck: is normal, no acute changes, Trachea: is midline with no obvious abnormalities, ROM/movement: limited range of motion, that is mild, Meningeal signs: are not present, nuchal rigidity, is not appreciated. Vital Signs: 22:14 BP 127 / 83; Pulse 112; Resp 19 S; Temp 98.5(O); Pulse Ox 98% on R/A; Weight 77.56 kg as6 (R); Height 5 ft. 5 in. (165.10 cm); Pain 0/10; 23:21 BP 137 / 89; Pulse 97; Resp 18; Pulse Ox 96% on R/A; as6 22:14 Body Mass Index 28.46 (77.56 kg, 165.10 cm) as6 [place] Coma Score: 22:14 Eye Response: spontaneous(4). Verbal Response: oriented(5). Motor Response: obeys as6 commands(6). Total: 15. 23:29 Eye Response: spontaneous(4). Verbal Response: oriented(5). Motor Response: obeys wan commands(6). Total: 15. Trauma Score (Adult): 22:14 Eye Response: spontaneous(1); Verbal Response: oriented(1); Motor Response: obeys as6 commands(2); Systolic BP: > 89 mm Hg(4); Respiratory Rate: 10 to 29 per min(4); Fallon Score: 15; Trauma Score: 12 MDM: 22:05 Patient medically screened. wan 22:28 Data reviewed: vital signs, nurses notes, radiologic studies, CT scan. [facility] 23:29 Differential diagnosis: Contusion of Hematoma on Laceration of Intracranial bleed- wan Concussion without LOC. Differential diagnosis: abrasion, closed head injury, contusion, fracture, laceration. Data interpreted: epilepsy physician: rate is 96 beats/min, rhythm is regular, Pulse oximetry: on room air is 96 %. Counseling: I had a detailed discussion with the patient and/or guardian regarding: the historical points, exam findings, and any diagnostic results supporting the discharge/admit diagnosis, lab results. 09/26 22:23 Order name: CT Head C Spine wan Administered Medications: No medications were administered Disposition Summary: 09/26/21 23:31 Discharge Ordered Location: Home wan Problem: new wan Symptoms: have improved wan Condition: Stable wan Diagnosis - Fall on same level, unspecified wan - Contusion of other part of head wan Followup: wan - With: Private Physician - When: 2 - 3 days - Reason: Recheck today's complaints, Continuance of care, Re-evaluation by your physician Discharge Instructions: - Discharge Summary Sheet wan - Head Injury, Adult wan - Fall Prevention in the Home, Adult wan - Fall Prevention in the Home, Adult, [id number] wan - Head Injury, Adult, [id number] wan Forms: - Medication Reconciliation Form wan - Thank You Letter wan - Antibiotic Education wan - Prescription Opioid Use wan Signatures: Dispatcher [employer] Td Lan MD MD cha Slawson, Ashby, RN RN as6
[2021-09-27 00:14] VITALS: TEMP 98.5
[2021-09-27 00:16] VITALS: BP 137/89; O2SAT 96
--- NOTE | 2021-09-27 07:49 | EKG ---
Test Date: 2021-09-26 Test Time: 22:08:59 Machine Captain: TP MEASUREMENT RESULTS: Intervals: Rate: 133 IL: QRSD: 138 QT: 344 QTc: 511 [place]: P: IL: QRS: 10 T: 39 INTERPRETIVE STATEMENTS: Atrial fibrillation with rapid ventricular response with premature ventricular or aberrantly conducted complexes Nonspecific intraventricular block Cannot rule out Septal infarct, age undetermined Abnormal ECG Compared to ECG 09/21/2021 20:15:19 Ventricular premature complex(es) now present Sinus rhythm no longer present Short IL interval no longer present ST (T wave) deviation no longer present Possible ischemia no longer present Myocardial infarct finding still present Electronically Signed On 09-27-21 07:48:01 TELEGRAPH MESSENGER by Jeffery Rey
--- NOTE | 2021-09-27 12:27 | RAD REPORT ---
EXAM DESCRIPTION: CT - Head C Spine Mpr Wo Con - 09/27/2021 6:26 am CLINICAL HISTORY: 80 years Female PAIN COMPARISON: None TECHNIQUE: Images were obtained in axial, sagittal, and coronal planes. One or more of the following dose optimizing techniques was utilized for this exam: Automated exposur e control, adjustment of the mA and/or kV according to patient size, and/or use of iterative reconstr uction technique. FINDINGS: CT brain: Moderate ventricular enlargement. Moderate prominence of the cortical sulci. Mil d periventricular decreased attenuation consistent with more remote microvascular ischemic change. No evidence for skull fracture. Symmetric aeration mastoid air cells bilaterally. Unremarkable paranasa l sinuses. Scalp soft tissue swelling with hematoma posteriorly on the left. CT cervical spine: Height of the vertebral bodies is intact. Satisfactory alignment articular facets. 2 mm anterior subluxation C4 with relationship to C5 likely degenerative in nature. Reversal normal cervical lordosis. Intervertebral disc space narrowing C5-6 and C6-7 levels. Marked anterior osteophy te formation also seen at these levels. Marginal spur formation with neural foraminal narrowing bilat erally all levels. Erosive changes involving the posterior odontoid. No fractures involving the odont oid. Calcification odontoid ligament. Intact ring C1. Additional erosive changes in this region anter iorly. Intact occipital condyles. No focal disc protrusion. No abnormalities lung apices bilaterally. IMPRESSION: 1. No acute intracranial abnormality. No evidence for hemorrhage, mass lesion, or larg e acute infarction. Age-appropriate changes. Scalp soft tissue swelling with hematoma posteriorly on the left. 2. No acute fracture or subluxation involving the cervical spine. Marked multilevel osteoarthritic change. Findings indicating muscle spasm. Electronically signed by: Dora Lazo MD 09/26/2021 11:07 PM GAS APPLIANCE REPAIRER Due to temporary technical issues with the PACS/Fluency reporting system, reports are being signed by the in house radiologist without review as a courtesy to ensure prompt reporting. The interpreting r adiologist is fully responsible for the content of the report.
== END 2021-09-26 23:56 | disposition home or self-care (01) ==
LOC: ER 22:01
DX: S00.93XA Contusion of unspecified part of head, initial encounter (principal); W18.30XA Fall on same level, unspecified, initial encounter; Y93.01 Activity, walking, marching and hiking; I10 Essential (primary) hypertension; I48.91 Unspecified atrial fibrillation; I50.9 Heart failure, unspecified; Z79.01 Long term (current) use of anticoagulants
CPT/HCPCS: 70450; 72125; 93005; 99284

== ENCOUNTER 2022-05-01 16:24 | Inpatient (IN) | payer OTHER ==
[2022-05-01 17:25] LABS: Absolute Lymphocytes (CBC) 1.6 K/uL (0.7-4.9); Hematocrit 49.3 % (36.0-45.0); Lymphocytes % 14.1 % (15.3-44.8); MPV 8.6 fL (7.6-11.3); RBC Red Blood Cell Count 5.19 M/uL (3.86-4.86)
[2022-05-01 17:30] LABS: Protime INR 1.76
--- NOTE | 2022-05-01 17:30 | RAD REPORT ---
EXAM DESCRIPTION: RAD - Chest Single View - 05/01/2022 5:13 pm CLINICAL HISTORY: a fib with rvr COMPARISON: Chest Single View dated 09/21/2021; Chest Single View dated 08/26/2021; Chest Single View dated 06/11/2021; Chest Single View dated 06/10/2021 FINDINGS: Lines: None. Lungs: No evidence of edema or pneumonia. Pleural: No significant pleural effusions or pneumothorax. Cardiac: Cardiomegaly Bones: No acute fractures. Other: IMPRESSION: No acute cardiopulmonary disease.
[2022-05-01 17:33] LABS: Albumin 3.6 g/dL (3.4-5.0); Potassium 3.6 mmol/L (3.5-5.1); Protein, Total 7.9 g/dL (6.4-8.2)
[2022-05-01] MEDS ORDERED: METOPROLOL TARTRATE 5 MG/5 ML INJ IV ONE (17:57)
[2022-05-01] MEDS ORDERED: ONDANSETRON 4 MG/2 ML VIAL IV PRN (17:58)
--- NOTE | 2022-05-01 18:03 | ER ---
Nurse's Notes [facility] Name: Irene Bauer Age: 81 yrs Sex: Female : 1940 Arrival Date: 05/01/2022 Time: 16:29 Bed 3 Private MD: Diagnosis: Atrial Fibrillation with RVR;Cellulitis;elevated lactic acid Presentation: 05/01 16:30 Method Of Arrival: EMS: [facility] bp 16:32 Chief complaint: EMS states: SENT FROM [facility] FOR GEN WEAKNESS AND PERIPHERAL bp CYANOSIS. Coronavirus screen: At this time, the client does not indicate any symptoms associated with coronavirus-19. Ebola Screen: No symptoms or risks identified at this time. Initial Sepsis Screen: Does the patient meet any 2 criteria? HR > 90 bpm. No. Patient's initial sepsis screen is negative. Does the patient have a suspected source of infection? No. Patient's initial sepsis screen is negative. Risk Assessment: Do you want to hurt yourself or someone else? Patient reports no desire to harm self or others. Onset of symptoms was May 01, 2022. 16:32 Acuity: ISELA 3 bp Triage Assessment: 16:33 General: Appears in no apparent distress. uncomfortable, Behavior is calm, cooperative, bp appropriate for age. Pain: Complains of pain in right hand, left hand, right foot and left foot. EENT: No deficits noted. Neuro: Level of Consciousness is awake, alert, obeys commands, Oriented to Appropriate for age Reports weakness GENERALIZED. Cardiovascular: Rhythm is atrial fibrillation with rapid ventricular response. Respiratory: No deficits noted. GI: No signs and/or symptoms were reported involving the gastrointestinal system. : No signs and/or symptoms were reported regarding the genitourinary system. Derm: Skin is dusky. Musculoskeletal: No deficits noted. Historical: - Allergies: 16:33 NKA; bp - Home Meds: 16:33 alphagan 5 ml nightly [Active]; atorvastatin 40 mg Oral tab 1 tab once daily [Active]; bp famotidine 40 mg Oral tab 1 tab once daily [Active]; furosemide 40 mg Oral tab 2 tabs 2 times per day [Active]; gabapentin 100 mg Oral tab daily [Active]; metolazone 2.5 mg Oral tab 1 tab once a week [Active]; metoprolol tartrate 50 mg Oral tab 1 tab 2 times per day [Active]; Xarelto 15 mg Oral tab 1 tab once daily [Active]; - PMHx: 16:33 Atrial Fib; Cataracts; Glaucoma; colon cancer; CHF; Hypertension; NOSE BLEEDS; bp osteoarthritis of spine; Osteopenia; Osteoporosis; TIA; - PSHx: 16:33 spine; Total abdominal hysterectomy; bp - Immunization history:: Adult Immunizations up to date. - Social history:: Smoking status: Patient denies any tobacco usage or history of. Screenin:35 Abuse screen: Denies threats or abuse. Denies injuries from another. Nutritional bp screening: No deficits noted. Tuberculosis screening: No symptoms or risk factors identified. Fall Risk None identified. Assessment: 16:35 General: SEE TRIAGE NOTE. bp 17:40 Reassessment: No changes from previously documented assessment. Patient and/or family bp updated on plan of care and expected duration. Pain level reassessed. 18:30 Reassessment: ADMIT INITIATED. bp Vital Signs: 16:32 BP 132 / 119; Pulse 132; Resp 17; Temp 97.6; Pulse Ox 100% ; bp 17:30 BP 149 / 76; Pulse 132; Resp 15; Pulse Ox 100% ; bp 17:45 BP 109 / 70; Pulse 132; Resp 21; Pulse Ox 100% ; bp 18:00 BP 125 / 84; Pulse 118; Resp 23; Pulse Ox 98% ; bp 18:30 BP 105 / 69; Pulse 112; Resp 22; Pulse Ox 100% ; bp 19:59 BP 118 / 92; Pulse 105; Resp 15 S; Pulse Ox 100% on R/A; as6 ED Course: 16:29 Patient arrived in ED. ms3 16:29 Burt Martinez DO is Attending Physician. ms3 16:30 John Hernandez, RN is Primary Nurse. bp 16:33 Triage completed. bp 16:33 Arm band placed on. bp 16:35 Patient has correct armband on for positive identification. Bed in low position. Call bp light in reach. Side rails up X2. 17:08 Inserted saline lock: 22 gauge in left wrist, using aseptic technique. Blood collected. zm 17:08 Blood Culture Adult (2) Sent. zm 17:08 CBC with Diff Sent. zm 17:08 CMP Sent. zm 17:08 Lactate Sent. zm 17:08 Protime (+inr) Sent. zm 17:08 Ptt, Activated Sent. zm 17:15 Chest Single View XRAY In Process Unspecified. EDMS 18:02 Derek Banks MD is Hospitalizing Provider. ms3 20:00 No provider procedures requiring assistance completed. Patient admitted, IV remains in as6 place. Administered Medications: 17:45 Drug: Metoprolol 5 mg Route: IVP; Site: left hand; bp 18:00 Drug: Metoprolol 5 mg Route: IVP; Site: left hand; bp 18:15 Drug: Metoprolol 5 mg Route: IVP; Site: left hand; bp 18:34 Follow up: Response: No adverse reaction bp Medication: 16:35 VIS not applicable for this client. bp Outcome: 18:02 Decision to Hospitalize by Provider. ms3 20:00 Admitted to Med/surg accompanied by tech, family with patient, via stretcher, room 211, as6 with chart. 20:00 Condition: stable 20:00 Instructed on the need for admit. 20:18 Patient left the ED. as6 Signatures: Dispatcher [employer] EDMS John Hernandez, RN RN bp Burt Martinez, DO ms3 Kermit Burgos, RONEN RN as6 Zeina Rowland Corrections: (The following items were deleted from the chart) 17:08 16:32 BP 132 / 119; Pulse 132bpm; Resp 17bpm; Pulse Ox 100%; bp bp
--- NOTE | 2022-05-01 18:03 | EDPHYS ---
Physician Documentation [facility] Name: Irene Bauer Age: 81 yrs Sex: Female : 1940 Arrival Date: 05/01/2022 Time: 16:29 Bed 3 Private MD: ED Physician Burt Martinez HPI: 05/01 17:14 This 81 yrs old Female presents to ER via EMS with complaints of hand and foot pain. ms3 17:14 81-year-old female past medical history of atrial fibrillation, cataracts, glaucoma, ms3 colon cancer, congestive heart failure, hypertension presents for bilateral hand pain and foot pain that she rates a 5/10. Patient states she has been unable to walk secondary to her feet hurting for 3 days. . Onset: The symptoms/episode began/occurred 3 day(s) ago. Severity of symptoms: At their worst the symptoms were moderate in the emergency department the symptoms are unchanged. Historical: - Allergies: 16:33 NKA; bp - Home Meds: 16:33 alphagan 5 ml nightly [Active]; atorvastatin 40 mg Oral tab 1 tab once daily [Active]; bp famotidine 40 mg Oral tab 1 tab once daily [Active]; furosemide 40 mg Oral tab 2 tabs 2 times per day [Active]; gabapentin 100 mg Oral tab daily [Active]; metolazone 2.5 mg Oral tab 1 tab once a week [Active]; metoprolol tartrate 50 mg Oral tab 1 tab 2 times per day [Active]; Xarelto 15 mg Oral tab 1 tab once daily [Active]; - PMHx: 16:33 Atrial Fib; Cataracts; Glaucoma; colon cancer; CHF; Hypertension; NOSE BLEEDS; bp osteoarthritis of spine; Osteopenia; Osteoporosis; TIA; - PSHx: 16:33 spine; Total abdominal hysterectomy; bp - Immunization history:: Adult Immunizations up to date. - Social history:: Smoking status: Patient denies any tobacco usage or history of. ROS: 17:14 Constitutional: Negative for fever, and chills. Eyes: Negative for injury, pain, ms3 redness, and discharge, Neck: Negative for injury, pain, and swelling, Cardiovascular: Negative for chest pain, and palpitations. Respiratory: Negative for shortness of breath, cough, wheezing, and pleuritic chest pain, Abdomen/GI: Negative for abdominal pain, nausea, vomiting, diarrhea, and constipation, Skin: Negative for injury, rash, and discoloration, Allergy/Immunology: Negative for hives, rash, and allergies, Hematologic/Lymphatic: Negative for swollen nodes, abnormal bleeding, and unusual bruising. 17:14 MS/extremity: Positive for Bilateral hand and foot pain. 17:14 All other systems are negative. Exam: 17:14 Constitutional: This is a well developed, well nourished patient who is awake, alert, ms3 and in no acute distress. Neck: Trachea midline, no cervical lymphadenopathy. Supple, full range of motion without nuchal rigidity, or vertebral point tenderness. No Meningismus. Chest/axilla: Normal chest wall appearance and motion. Nontender with no deformity. Cardiovascular: Regular rate and rhythm with a normal S1 and S2. No gallops, murmurs, or rubs. Normal PMI, no JVD. No pulse deficits. Respiratory: Lungs have equal breath sounds bilaterally, clear to auscultation and percussion. No rales, rhonchi or wheezes noted. No increased work of breathing, no retractions or nasal flaring. Abdomen/GI: Soft, non-tender, with normal bowel sounds. No distension or tympany. No guarding or rebound. No evidence of tenderness throughout. Back: No spinal tenderness. No costovertebral tenderness. Full range of motion. 17:14 Skin: Erythema of L distal foot. Bilateral hand cyanosis. 17:14 ECG was reviewed by the Attending Physician. ms3 Vital Signs: 16:32 BP 132 / 119; Pulse 132; Resp 17; Temp 97.6; Pulse Ox 100% ; bp 17:30 BP 149 / 76; Pulse 132; Resp 15; Pulse Ox 100% ; bp 17:45 BP 109 / 70; Pulse 132; Resp 21; Pulse Ox 100% ; bp 18:00 BP 125 / 84; Pulse 118; Resp 23; Pulse Ox 98% ; bp 18:30 BP 105 / 69; Pulse 112; Resp 22; Pulse Ox 100% ; bp 19:59 BP 118 / 92; Pulse 105; Resp 15 S; Pulse Ox 100% on R/A; as6 MDM: 16:29 Patient medically screened. ms3 17:14 Differential Diagnosis sepsis, Sepsis. ms3 17:53 ED course: Discussed case with Dr Banks and he accepts patient as inpatient. Would like ms3 Rocephin 1 gm q 12 ordered, UA, Ucx ordered. 18:02 Data reviewed: vital signs, nurses notes, lab test result(s), EKG, radiologic studies, ms3 and as a result, I will admit patient. Data interpreted: traffic monitor specialist: rate is 144 beats/min, rhythm is atrial fibrillation, with no ectopy, Interpretation: atrial fibrillation, tachycardia. 05/01 16:30 Order name: Blood Culture Adult (2) ms3 05/01 16:30 Order name: CBC with Diff; Complete Time: 17:35 ms3 05/01 16:30 Order name: CMP; Complete Time: 17:35 ms3 05/01 16:30 Order name: Lactate; Complete Time: 17:42 ms3 05/01 16:30 Order name: Protime (+inr); Complete Time: 17:35 ms3 05/01 16:30 Order name: Ptt, Activated; Complete Time: 17:35 ms3 05/01 17:55 Order name: Urinalysis ms3 05/01 17:55 Order name: Urine Culture ms3 05/01 18:02 Order name: Basic Metabolic Panel EDMS 05/01 18:02 Order name: Basic Metabolic Panel EDMS 05/01 18:02 Order name: CBC with Automated Diff EDMS 05/01 18:02 Order name: CBC with Automated Diff EDMS 05/01 18:05 Order name: SARS RAPID; Complete Time: 22:08 jl7 05/01 19:43 Order name: Urine Dipstick-Ancillary; Complete Time: 22:08 EDMS 05/01 16:30 Order name: Chest Single View XRAY; Complete Time: 17:35 ms3 05/01 16:30 Order name: Accucheck; Complete Time: 16:36 ms3 05/01 16:30 Order name: Cardiac monitoring; Complete Time: 17:28 ms3 05/01 16:30 Order name: EKG - Nurse/Tech; Complete Time: 17:08 ms3 05/01 16:30 Order name: IV Saline Lock - Large Bore; Complete Time: 17:26 ms3 05/01 16:30 Order name: Labs collected and sent; Complete Time: 17:09 ms3 05/01 16:30 Order name: O2 Per Protocol; Complete Time: 16:36 ms3 05/01 16:30 Order name: O2 Sat Monitoring; Complete Time: 16:36 ms3 05/01 16:30 Order name: Urine Dipstick-Ancillary (obtain specimen); Complete Time: 19:44 ms3 05/01 18:02 Order name: Regular EDMS 05/01 18:02 Order name: EKG Electrocardiogram EDMS 05/01 18:02 Order name: EKG Electrocardiogram EDMS 05/01 18:02 Order name: EKG Electrocardiogram EDMS 05/01 18:02 Order name: EKG Electrocardiogram EDMS EC:14 Rate is 118 beats/min. Rhythm is irregularly irregular. QRS Holly is Normal. Clinical ms3 impression: Atrial Fibrillation and with RVR. Interpreted by me. Reviewed by me. Administered Medications: 17:45 Drug: Metoprolol 5 mg Route: IVP; Site: left hand; bp 18:00 Drug: Metoprolol 5 mg Route: IVP; Site: left hand; bp 18:15 Drug: Metoprolol 5 mg Route: IVP; Site: left hand; bp 18:34 Follow up: Response: No adverse reaction bp Disposition Summary: 05/01/22 18:02 Hospitalization Ordered Hospitalization Status: Inpatient Admission ms3 Provider: Derek Banks ms3 Location: Telemetry/MedSurg (Inpatient) ms3 Condition: Stable ms3 Problem: new ms3 Symptoms: are unchanged ms3 Bed/Room Type: Standard ms3 Room Assignment: 211(05/01/22 19:37) mw Diagnosis - Atrial Fibrillation with RVR ms3 - Cellulitis ms3 - elevated lactic acid ms3 Forms: - Medication Reconciliation Form ms3 - SBAR form ms3 Signatures: Dispatcher [employer] EDMS Rosa Lizama RN RN mw John Hernandez RN RN bp Burt Martinez DO DO ms3 Corrections: (The following items were deleted from the chart) 19:37 18:02 ms3 mw
[2022-05-01 18:41] LABS: SARS-CoV-2 Antigen Rapid Res Negative (Negative)
[2022-05-01 19:43] LABS: Urine Blood Negative (Negative); Urine Glucose Negative (Negative); Urine Protein Negative (Negative); Urine Specific Gravity 1.015 (1.005-1.030)
[2022-05-01 20:26] LABS: Urine Bilirubin Negative (Negative); Urine Blood Negative (Negative); Urine Clarity Clear (Clear); Urine Color Yellow (Yellow); Urine Glucose Negative (Negative); Urine Protein Negative (Negative); Urine Urobilinogen 0.2 mg/dL (0.2-1.0); Urine pH 6.5 (5.0-7.0)
[2022-05-01] MEDS: CEFTRIAXONE 1,000 MG in NA CHLORIDE 0.9% 50 ML IVPB SCH (21:04)
[2022-05-01] MEDS ORDERED: GLUCAGON 1 MG/VIAL IM PRN (21:20)
[2022-05-01] MEDS ORDERED: D50W 25 GM/50 ML SYRINGE IV PRN (21:20)
[2022-05-01] MEDS: ATORVASTATIN 20 MG TAB PO SCH (22:33)
[2022-05-01 22:38] VITALS: BMI 26.9
[2022-05-02 06:12] LABS: Absolute Lymphocytes (CBC) 1.9 K/uL (0.7-4.9); Lymphocytes % 17.3 % (15.3-44.8); MPV 8.6 fL (7.6-11.3)
[2022-05-02 06:26] LABS: Potassium 3.5 mmol/L (3.5-5.1)
--- NOTE | 2022-05-02 06:56 | HP ---
Date of Admission: 05/01/2022 Chief Complaint: Feeling weak and leg problems. History Of Present Illness: Ms. Bauer is a very pleasant 81-year-old female patient who has a history of recurrent urinary tract infection, recently had another urinary tract infection problem about a week ago on April 24, 2019, and she was prescribed 1 week of antibiotic, which was Cipro and according to urine culture, which was done prior to starting antibiotic, this was appropriate antibiotic and culture specific. Today, she came into the emergency room because caregiver noted that her hands were dusky in color and for last couple of days she is having generalized weakness to the extent that she is not able to stand or walk. No fever. No chills. No nausea, vomiting, or diarrhea. Also, [facility] on the right foot, but today she was noted to have redness of the distal 1/3rd to distal 1/2 of bilateral feet. There was no fall, no injury. Family also reported that mental status was, she was a little off, and that is the best way they can describe it in last couple of days. With all this, she was brought into the emergency room after she was evaluated and was admitted to the hospital and I did see her in the emergency room and her daughter was present with her at bedside. Allergies: NO KNOWN ALLERGIES. Medications: Tylenol 500 mg 3 times a day as needed, atorvastatin 40 mg daily at bedtime, Alphagan eye drops, Caltrate plus D 1 tablet 2 times a day, duloxetine 20 mg daily, Xarelto 15 mg daily, famotidine 40 mg daily at bedtime, gabapentin 300 mg 2 times a day, furosemide 40 mg takes 2 tablets 2 times a day, glipizide extended release 2.5 mg takes 1 tablet daily in morning with breakfast, Tradjenta 5 mg daily, Claritin 10 mg daily as needed for allergies, metolazone 2.5 mg takes 1 tablet 2 times a week, metoprolol 50 mg takes 2 tablets 2 times a day, olmesartan 40 mg daily as needed, if systolic blood pressure more than 140, MiraLAX 17 g powder mixed with 8-ounce water daily as needed for constipation, potassium chloride 10 mEq 2 tablets 3 times a day, and Nasacort nasal spray 1 spray in each nostril 2 times a day. Review of Systems: Dermatology: As mentioned above. Constitutional: As mentioned above. All other systems reviewed and negative. Past Medical History: Significant for allergic rhinitis, type 2 diabetes mellitus, hypertension, mixed hyperlipidemia, chronic diastolic heart failure, paroxysmal atrial fibrillation, diverticulosis, colon cancer involving hepatic flexure, history of recurrent urinary tract infection, chronic kidney disease, leg edema, varicose veins, osteoarthritis, multiple sites, anxiety, depression. Past Surgical History: Appendectomy, partial resection of colon due to colon cancer July 02, 2012, hysterectomy, bladder suspension, back surgery. Family History: Father had stroke. Mother had colon cancer. Social History: Negative for smoking and alcohol use. Physical Examination: Vital Signs: Temperature 97.6, pulse 132, respiratory rate 17, blood pressure 132/119, oxygen saturation 100%, height 5 feet 6 inches, weight 166 pounds. General: Awake, alert, oriented, not in distress. HEENT: Head atraumatic, normocephalic. Conjunctivae nonerythematous. Sclerae white. Mouth, no thrush or edema noted. Ears/Nose, no mass, lesion, discharge noted. Neck: Supple. No JVD, lymph nodes, bruit, thyromegaly noted. Lungs: Bilateral good equal air entry. Clear to auscultation. No rhonchi. No rales. Heart: Normal heart sounds, no murmur or gallop. Abdomen: Soft, bowel sounds normal. No guarding, rigidity, tenderness, mass, hepatosplenomegaly, distention, or bruit noted. Extremities: The patient's distal 1/3rd to distal half of both feet shows pink discoloration of skin, slightly warm to touch. Right great toe lateral aspect has very superficial small open wound, probably 5 mm in size or less. No drainage, no bleeding. Vascular, dorsalis pedis pulsation and radial artery pulsation is 2+ on both sides and there were some cyanotic discoloration of both hands especially involving just distal part of the fingers and nail beds area. Her oxygen saturation was 100% during this exam. Skin: No rash, ulcer, cellulitis. Lymphatics: No lymph node enlargement in neck, supraclavicular, infraclavicular region. Neuro: No focal neurological deficit. Chest: Unremarkable. External Genitalia: Deferred. Rectal: Deferred. Laboratory Data: WBC 11.6, hemoglobin 16.5, platelets 242, sodium 132, potassium 3.6, chloride 89, bicarb 36, glucose 122, BUN 48, creatinine 1.87. Liver function test unremarkable. Urinalysis normal. Chest x-ray, no acute cardiopulmonary changes. COVID-19 test negative. Impression: 1. Cellulitis, bilateral feet. 2. Toxic encephalopathy. 3. Chronic kidney disease stage III. 4. Atrial fibrillation, paroxysmal. 5. Type 2 diabetes mellitus. 6. Hypertension. 7. Hyperlipidemia, mixed. 8. Chronic diastolic heart failure. 9. Allergic rhinitis. 10. Anxiety. 11. Depression. 12. Diverticulosis. 13. Colon cancer, hepatic flexure. 14. Osteoarthritis, multiple sites. Plan: We will go ahead and admit the patient to hospital for further evaluation and management of this problem. The patient is appropriate for inpatient and is expected to spend 2 midnights in hospital. We will continue her home medications per order. When she first came into the emergency room, she had atrial fibrillation with rapid ventricular rate with heart rate around 130-140 and she received IV metoprolol. We will continue her Xarelto. Consult Cardiology is Dr. Rey and we will also go ahead and consult Dr. [facility]. Empiric antibiotic, ceftriaxone will be started for cellulitis of both feet. The patient is awake, alert, answering all the questions appropriately and her daughter was present with her at bedside and I did talk to her about advance directives and according to patient's wish, we will write DNR order in the chart as she does not want any heroic measures like CPR, defibrillation, or ventilator support. Consult Physical therapy. We will get arterial Doppler of lower extremity and fall precaution was ordered. Diabetes will be managed with sliding scale insulin. HITESH/MODL Voice ID: [id number] RIANA
--- NOTE | 2022-05-02 07:22 | EKG ---
Test Date: 2022-05-01 Test Time: 17:14:45 Prepress Manager: JUANJO MEASUREMENT RESULTS: Intervals: Rate: 118 [place]: QRSD: 76 QT: 318 QTc: 445 [place]: P: WA: QRS: -26 T: -57 INTERPRETIVE STATEMENTS: Atrial fibrillation with rapid ventricular response Cannot rule out Anterior infarct, age undetermined Abnormal ECG Compared to ECG 09/26/2021 22:08:59 Ventricular premature complex(es) no longer present Myocardial infarct finding still present Electronically Signed On 05-02-22 07:20:33 CDT by Jeffery Rey
[2022-05-02] MEDS: INSULIN -REGULAR HUMAN 50 UNIT/0.5 ML ML SQ SCH ×4 (07:30→21:00)
--- NOTE | 2022-05-02 08:53 | RAD REPORT ---
EXAM DESCRIPTION: US - Lower Extremity Arterial Bilat - 05/02/2022 5:30 am CLINICAL HISTORY: R/O PVD Leg pain, claudication COMPARISON: No comparisons TECHNIQUE: Bilateral lower extremity arterial Doppler examination was performed. FINDINGS: Triphasic waveforms are seen throughout both lower extremity arterial systems to the level of both po pliteal arteries. Bilateral infrapopliteal vessels demonstrate monophasic flow with blunting of the systolic peaks. There is no high-grade stenosis or complete occlusion evident. IMPRESSION: Mild to moderate infrapopliteal bilateral peripheral vascular disease is seen in a relat ively symmetric fashion. This pattern is typically seen in diabetic patients. No complete occlusion evident.
[2022-05-02] MEDS ORDERED: METOPROLOL TAR 50 MG TAB PO SCH (09:00)
[2022-05-02] MEDS: DULOXETINE 20 MG CAP PO SCH (09:19)
[2022-05-02] MEDS: GABAPENTIN 300 MG CAP PO SCH ×2 (09:19→21:27)
[2022-05-02] MEDS: FUROSEMIDE 40 MG TABLET PO SCH ×2 (09:19→16:33)
[2022-05-02] MEDS: ASPIRIN EC 81 MG TAB PO SCH (09:21)
[2022-05-02] MEDS: AMIODARONE HCL 200 MG TAB PO SCH ×2 (09:21→21:27)
[2022-05-02] MEDS: RIVAROXABAN 15 MG TABLET PO SCH (09:23)
[2022-05-02] MEDS: CEFTRIAXONE 1,000 MG in NA CHLORIDE 0.9% 50 ML IVPB SCH ×2 (09:23→21:26)
[2022-05-02] MEDS: COLLAGENASE 30 GM OINTMENT TOP SCH (11:47)
[2022-05-02] MEDS ORDERED: METOPROLOL TARTRATE 5 MG/5 ML INJ IV STA (12:18)
[2022-05-02] MEDS ORDERED: DIGOXIN 0.25 MG/ML AMP IV SCH (13:00)
--- NOTE | 2022-05-02 14:26 | CON ---
Date of Consultation: 05/02/2022 Reason For Consultation: Right foot cellulitis with wound. History Of Present Illness: The patient is an 81-year-old female with multiple medical problems, who recently had urinary tract infection and was treated with antibiotics. However, she developed redne ss and warmth in her right distal foot when I [facility]. She had a wound on the medial side of the great toe which was debrided down to the subcutaneous tissue and S antyl was ordered. She also had an appointment with Dr. Banks later yesterday. So I advised her to g o and see Dr. Banks. We contacted his office and discussed with his office the need for antibiotics f or the cellulitis as she had been on previous antibiotic by him to let him make that decision. [facility] er when she saw him, she was feeling weak and increasing pain and she was sent to the emergency room and she was evaluated and she was admitted with cellulitis and weakness and atrial fibrillation with RVR. She denies any sore throat, runny nose, cough, headaches, or dizziness. No chest pain. No fev er or chills. No diarrhea or constipation. No nausea or vomiting. Review of Systems: Otherwise unremarkable. Past Medical History: Significant for type 2 diabetes, hypertension, hyperlipidemia, atrial fibrilla tion, colon cancer, diverticulosis, recurrent UTIs, chronic kidney disease, lymphedema, depression. Past Surgical History: Appendectomy, partial colon resection back in 2011, hysterectomy, bladder gayathri pension, back surgery. Allergies: NO ALLERGIES. Social History: The patient does not smoke or drink alcohol. Family History: Significant for stroke in the father and mother with colon cancer. Physical Examination: Vital Signs: Currently she is tachycardic. Blood pressure is 142/82. She is afebrile. General: She is awake, alert. Head and neck: No masses. Chest: Clear. Heart: S1, S2. Abdomen: Soft. Extremities: Palpable dorsalis pedis and posterior tibial pulses. There is redness with warmth in t he distal third of the right foot with edema. The wound itself is dry now with debridement yesterday . It is in the medial aspect, is about 5 mm in diameter. There is no purulent discharge. Diagnostic Data: Her arterial Doppler shows no high-grade stenosis or complete occlusion. She has m [id number] infrapopliteal bilateral peripheral vascular disease in a symmetric fashion which is consistent with her diabetic history. Laboratory data showed slight leukocytosis. EKG shows atrial fibrillation with RVR. Assessment: An 81-year-old female with multiple medical problems with cellulitis and atrial fibrilla tion with rapid ventricular response. Recommendation: IV antibiotics as ordered. Collagenase dressing for wound care. Medical management for the atrial fibrillation and cardiology followup. No need for any acute surgical intervention. The patient can follow up with me in the [facility] upon discharge. /MODL Voice ID: [id number] Report ID: [id number]
--- NOTE | 2022-05-02 16:17 | CON ---
Date of Consultation: 05/02/2022 Reason For Consultation: Atrial fibrillation with rapid ventricular response. History Of Present Illness: Ms. Bauer is an 81, very well known to me [facility]. Has had chronic atrial fibrillation. She has failed sotalol. She is now on metoprolol 100 b.i.d., comes in with what appeared to be cellulitis in both feet, cyanosis in her hands and was found to be in a heart rate of 105, creatinine of 1.47, white count of 11.6. I was con sulted in regard to the atrial fibrillation. She does not have any heart symptoms per se, except for occasional palpitation and dyspnea on exertion, which has been chronic with her. Denied any syncope . She denied any chest pain. Past Medical History: Includes history of colon cancer, TIA, hypertension, chronic diastolic congest sravanthi heart failure, and atrial fibrillation. Allergies: NONE. Review of Systems: Negative. Social History: Negative. Family History: Noncontributory. Medications: At home include metolazone p.r.n., Xarelto, metoprolol, Lipitor, Pepcid, Lasix, Neuront in. Physical Examination: General: She was in no acute distress. Vital Signs: Atrial fibrillation, rate 105, afebrile. HEENT: Negative. Neck: Supple with no bruit, lymphadenopathy, JVD, or thyromegaly. Chest: Clear. Cardiac exam: Revealed atrial fibrillation. Abdomen: Benign. Extremities: Revealed erythema in the right foot with good distal pulses bilaterally. Her left foot had what appeared to be some discoloration. RASHIDA/LAWANDA Voice ID: [id number] Report ID: [id number]
[2022-05-02] MEDS: ACETAMINOPHEN 500 MG TAB PO PRN ×2 (16:32→21:26)
[2022-05-02] MEDS: ATORVASTATIN 20 MG TAB PO SCH (21:27)
--- NOTE | 2022-05-03 05:56 | PN ---
Date of Progress Note: 05/02/2022 Subjective: Patient was seen this morning for followup. She was lying in bed. No new complaints or problems reported by her this morning when I saw her. Objective: Vital Signs: Reviewed. HEENT: Examination unremarkable. Lungs: Clear to auscultation. Cardiac: Heart sounds normal. Abdomen: Soft, bowel sounds normal. No guarding, rigidity, tenderness, or distention. Extremities: No leg edema. Redness from distal 1/3rd of both feet is slightly better today than yes terday. Laboratory Data: White count 11, hemoglobin 15.3, platelets 200. Sodium 133, potassium 3.5, chlorid e 93, bicarb 34, BUN 44, creatinine 1.16, glucose 138. Overnight, her glucose level had dropped down . The lowest fingerstick blood sugar was 21 and it was corrected. Arterial Doppler of both lower ex tremity shows distal peripheral vascular disease, involving both lower extremities. Impression: 1.Cellulitis, bilateral feet. 2.Peripheral vascular disease. 3.Chronic atrial fibrillation. 4.Hypertension. 5.Hyperlipidemia. 6.Type 2 diabetes mellitus. Plan: We will go ahead and continue current antibiotics. Continue to follow up with Dr. Rodriguez and Arturo Rey. I did discuss details with Dr. Rey and patient is having ongoing problem with her at [facility] fibrillation with rapid ventricular rate. Considering that we discussed about possibility of di scontinuing metoprolol and start amiodarone, Dr. Rey agrees with that plan and we will start her on 400 mg 2 times a day by mouth on amiodarone and discontinue metoprolol. Continue current anticoag ulation therapy which is Xarelto, physical therapy to work with the patient. We will see her tomorrow for followup. Diabetes will be managed with fingerstick blood sugar, mild sliding scale. HITESH/MODL Voice ID: [id number] Report ID: [id number]
[2022-05-03] MEDS: INSULIN -REGULAR HUMAN 50 UNIT/0.5 ML ML SQ SCH ×4 (07:30→19:59)
--- NOTE | 2022-05-03 08:50 | EKG ---
Test Date: 2022-05-02 Test Time: 12:49:30 Category Analyst: KENNY MEASUREMENT RESULTS: Intervals: Rate: 152 MS: 104 QRSD: 74 QT: 324 QTc: 515 [place]: P: MS: 104 QRS: -46 T: -67 INTERPRETIVE STATEMENTS: Sinus tachycardia with short MS with fusion complexes Left anterior fascicular block Cannot rule out Anterior infarct, age undetermined Abnormal ECG Compared to ECG 05/01/2022 17:14:45 Fusion complex(es) now present Short MS interval now present Left anterior fascicular block now present Atrial fibrillation no longer present Myocardial infarct finding still present Electronically Signed On 05-03-22 08:47:04 CDT by Jeffery Rey
[2022-05-03] MEDS: COLLAGENASE 30 GM OINTMENT TOP SCH (09:00)
[2022-05-03] MEDS ORDERED: BISACODYL 10 MG RECTAL SUPP PR ONE (11:08)
[2022-05-03] MEDS: RIVAROXABAN 15 MG TABLET PO SCH (11:11)
[2022-05-03] MEDS: CEFTRIAXONE 1,000 MG in NA CHLORIDE 0.9% 50 ML IVPB SCH ×2 (11:11→20:42)
[2022-05-03] MEDS: AMIODARONE HCL 200 MG TAB PO SCH ×2 (11:12→20:42)
[2022-05-03] MEDS: DULOXETINE 20 MG CAP PO SCH (11:12)
[2022-05-03] MEDS: FUROSEMIDE 40 MG TABLET PO SCH ×2 (11:12→17:48)
[2022-05-03] MEDS: GABAPENTIN 300 MG CAP PO SCH ×2 (11:12→20:42)
[2022-05-03] MEDS: ASPIRIN EC 81 MG TAB PO SCH (11:12)
[2022-05-03] MEDS: METOPROLOL TAR 50 MG TAB PO SCH ×2 (13:19→20:41)
--- OUTSIDE RECORDS SUMMARY | 2022-05-03 14:31 | XMS REPORT | Continuity of Care Document ---
:1940 Author Organization [facility] t Address [address] [place] [address] Care Team Providers Name Role Phone Kaushik Banks Primary Care Physician Kaushik Banks Attending Clinician Unavailable Vaccine, Family Medicine Attending Clinician Unavailable Pepe Garcia DO Attending Clinician PEPE GARCIA Attending Clinician Unavailable Vaccine, Db Cbc Fam Attending Clinician Unavailable Hanna LEYVA Attending Clinician HANNA Attending Clinician Unavailable Gracie ANDINO Attending Clinician Unavailable Gracie Andino DO Attending Clinician Dusty NASSAR Attending Clinician Unavailable Aditi LEYVA, Derek Attending Clinician Chance Fair MD Attending Clinician Jessica Attending Clinician Unavailable Doctor Unassigned, Name Attending Clinician Unavailable Nurse, Fam Attending Clinician Unavailable RADHA Attending Clinician Unavailable RADHA Admitting Clinician Unavailable Payers Payer Name Policy Type Policy Number Effective Date Expiration Date Jamshid DIETRICH MANAGED [id number] 2020 MEDICARE PPO-RENEE 00:00:00 Problems Condition Condition [...] (hypertens (hypertens it y of ion), ion), [place] benign benign Medical Branch HLD HLD Disease Active Univers (hyperlipi (hyperlipi it y of demia) demia) [facility] Osteoarthr Osteoarthr Disease Active U [...] Active Univers ALLERGIE Class ity of S [facility] Social History Social Habit Start Date Stop Date Quantity Comments Source Exposure to Not sure [facility] SARS-CoV-2 [facility] (event) Branch Alcohol intake 2021-09-16 2021-09-16 Current [place] of 00:00:00 00:00:00 non-drinker of [facility] alcohol Branch (finding) Tobacco use and 2019-11-27 2019-11-27 Never used Universit y of exposure 00:00:00 00:00:00 [facility] Sex [birth year] [facility] of 00:00:00 00:00:00 [facility] Smoking Status Start Date Stop Date Source Never smoker [facility] Branch Medications Ordered Filled Start Stop Current Ordering Indication Dosage Frequency Signature Comments Components Source Medication Medication Date Date Medication? Clinician (SIG) Name Name cefpodoxime 2020-10- No [id number] 100mg Take 1 Univers 100 mg 2- 12-12 tablet by ity of tablet 00:00: 05:59 mouth 2 [place] 00 :00 (two) Medical times Branch daily for 7 days. DULOXETINE 2020-0 Yes [id number] 20mg TAKE 1 U nivers 20 mg 5-22 CAPSULE BY ity of capsule 00:00: MOUTH [place] 00 DAILY. Medical KEEP ON Branch FILE. DULOXETINE 2020-0 Yes [id number] 20mg TAKE 1 U nivers 20 mg 5-22 CAPSULE BY ity of capsule 00:00: MOUTH [place] 00 DAILY. Medical KEEP ON Branch FILE. DULOXETINE 2020-0 Yes [id number] 20mg TAKE 1 U nivers 20 mg 5-22 CAPSULE BY ity of capsule 00:00: MOUTH [place] 00 DAILY. Medical KEEP ON Branch FILE. DULOXETINE 2020-0 Yes [id number] 20mg TAKE 1 U nivers 20 mg 5-22 CAPSULE BY ity of capsule 00:00: MOUTH [place] 00 DAILY. Medical KEEP ON Branch FILE. DULOXETINE 2020-0 Yes [id number] 20mg TAKE 1 U nivers 20 mg 5-22 CAPSULE BY ity of capsule 00:00: MOUTH [place] 00 DAILY. Medical KEEP ON Branch FILE. DULOXETINE 2020-0 Yes [id number] 20mg TAKE 1 U nivers 20 mg 5-22 CAPSULE BY ity of capsule 00:00: MOUTH [place] 00 DAILY. Medical KEEP ON Branch FILE. METOPROLOL 2020-0 Yes [id number] TAKE 1 U nivers TARTRATE 3-16 TABLET BY ity of 100 mg 00:00: MOUTH [place] tablet 00 TWICE A Medical DAY Branch METOPROLOL 2020-0 Yes [id number] TAKE 1 U nivers TARTRATE 3-16 TABLET BY ity of 100 mg 00:00: MOUTH [place] tablet 00 TWICE A Medical DAY Branch METOPROLOL 2020-0 Yes [id number] TAKE 1 U nivers TARTRATE 3-16 TABLET BY ity of 100 mg 00:00: MOUTH [place] tablet 00 TWICE A Medical DAY Branch METOPROLOL 2020-0 Yes [id number] TAKE 1 U nivers TARTRATE 3-16 TABLET BY ity of 100 mg 00:00: MOUTH [place] tablet 00 TWICE A Medical DAY Branch METOPROLOL 2020-0 Yes [id number] TAKE 1 U nivers TARTRATE 3-16 TABLET BY ity of 100 mg 00:00: MOUTH [place] tablet 00 TWICE A Medical DAY Branch METOPROLOL 2020-0 Yes [id number] TAKE 1 U nivers TARTRATE 3-16 TABLET BY ity of 100 mg 00:00: MOUTH [place] tablet 00 TWICE A Medical DAY Branch METOPROLOL 2020-0 Yes [id number] TAKE 1 U nivers TARTRATE 3-16 TABLET BY ity of 100 mg 00:00: MOUTH [place] tablet 00 TWICE A Medical DAY Branch METOPROLOL 2020-0 Yes [id number] TAKE 1 U nivers TARTRATE 3-16 TABLET BY ity of 100 mg 00:00: MOUTH [place] tablet 00 TWICE A Medical DAY Branch METOPROLOL 2020-0 Yes [id number] TAKE 1 U nivers TARTRATE 3-16 TABLET BY ity of 100 mg 00:00: MOUTH [place] tablet 00 TWICE A Medical DAY Branch OLMESARTAN 2018-10 Yes [id number] 40mg TAKE 1 [facility] 40 mg 2-27 TABLET BY ity of tablet 00:00: MOUTH [place] 00 DAILY. Medical KEEP ON Branch FILE. OLMESARTAN 2018-10 Yes [id number] 40mg TAKE 1 [facility] 40 mg 2-27 TABLET BY ity of tablet 00:00: MOUTH [place] 00 DAILY. Medical KEEP ON Branch FILE. OLMESARTAN 2018-10 Yes [id number] 40mg TAKE 1 [facility] 40 mg 2-27 TABLET BY ity of tablet 00:00: MOUTH [place] 00 DAILY. Medical KEEP ON Branch FILE. OLMESARTAN 2018-10 Yes [id number] 40mg TAKE 1 [facility] 40 mg 2-27 TABLET BY ity of tablet 00:00: MOUTH [place] 00 DAILY. Medical KEEP ON Branch FILE. OLMESARTAN 2018-10 Yes [id number] 40mg TAKE 1 [facility] 40 mg 2-27 TABLET BY ity of tablet 00:00: MOUTH [place] 00 DAILY. Medical KEEP ON Branch FILE. OLMESARTAN 2018-10 Yes [id number] 40mg TAKE 1 [facility] 40 mg 2-27 TABLET BY ity of tablet 00:00: MOUTH [place] 00 DAILY. Medical KEEP ON Branch FILE. OLMESARTAN 2018-10 Yes [id number] 40mg TAKE 1 [facility] 40 mg 2-27 TABLET BY ity of tablet 00:00: MOUTH [place] 00 DAILY. Medical KEEP ON Branch FILE. OLMESARTAN 2018-10 Yes [id number] 40mg TAKE 1 [facility] 40 mg 2-27 TABLET BY ity of tablet 00:00: MOUTH [place] 00 DAILY. Medical KEEP ON Branch FILE. OLMESARTAN 2018-10 Yes [id number] 40mg TAKE 1 [facility] 40 mg 2-27 TABLET BY ity of tablet 00:00: MOUTH [place] 00 DAILY. Medical KEEP ON Branch FILE. OLMESARTAN 2018-10 Yes [id number] 40mg TAKE 1 [facility] 40 mg 2-27 TABLET BY ity of tablet 00:00: MOUTH [place] 00 DAILY. Medical KEEP ON Branch FILE. OLMESARTAN 2018-10 Yes [id number] 40mg TAKE 1 [facility] 40 mg 2-27 TABLET BY ity of tablet 00:00: MOUTH [place] 00 DAILY. Medical KEEP ON Branch FILE. OLMESARTAN 2018-10 Yes [id number] 40mg TAKE 1 [facility] 40 mg 2-27 TABLET BY ity of tablet 00:00: MOUTH [place] 00 DAILY. Medical KEEP ON Branch FILE. OLMESARTAN 2018-10 Yes [id number] 40mg TAKE 1 [facility] 40 mg 2-27 TABLET BY ity of tablet 00:00: MOUTH [place] 00 DAILY. Medical KEEP ON Branch FILE. OLMESARTAN 2018-10 Yes [id number] 40mg TAKE 1 [facility] 40 mg 2-27 TABLET BY ity of tablet 00:00: MOUTH [place] 00 DAILY. Medical KEEP ON Branch FILE. OLMESARTAN 2018-10 Yes [id number] 40mg TAKE 1 [facility] 40 mg 2-27 TABLET BY ity of tablet 00:00: MOUTH [place] 00 DAILY. Medical KEEP ON Branch FILE. OLMESARTAN 2018-10 Yes [id number] 40mg TAKE 1 Un mega 40 mg [...] s: atrial fibrillati on METOLAZONE 2018-10 Yes [id number] 5mg TAKE 1 [facility] mega 5 mg tablet 2-09 TABLET BY ity of 00:00: MOUTH [place] 00 WEEKLY. Medical TAKE 30 Branch MINUTES BEFORE FUROSEMIDE . METOLAZONE 2018-10 Yes [id number] 5mg TAKE 1 [facility] mega 5 mg tablet 2-09 TABLET BY ity of 00:00: MOUTH [place] 00 WEEKLY. Medical TAKE 30 Branch MINUTES BEFORE FUROSEMIDE . METOLAZONE 2018-10 Yes [id number] 5mg TAKE 1 [facility] 5 mg tablet 2-09 TABLET BY ity of 00:00: MOUTH [place] 00 WEEKLY. Medical TAKE 30 Branch MINUTES BEFORE FUROSEMIDE . METOLAZONE 2018-10 Yes [id number] 5mg TAKE 1 Un mega 5 mg tablet 2-09 TABLET BY ity of 00:00: MOUTH [place] 00 WEEKLY. Medical TAKE 30 Branch MINUTES BEFORE FUROSEMIDE . METOLAZONE 2018-10 Yes [id number] 5mg TAKE 1 Un mega 5 mg tablet 2-09 TABLET BY ity of 00:00: MOUTH [place] 00 WEEKLY. Medical TAKE 30 Branch MINUTES BEFORE FUROSEMIDE . METOLAZONE 2018-10 Yes [id number] 5mg TAKE 1 Un mega 5 mg tablet 2-09 TABLET BY ity of 00:00: MOUTH [place] 00 WEEKLY. Medical TAKE 30 Branch MINUTES BEFORE FUROSEMIDE . METOLAZONE 2018-10 Yes [id number] 5mg TAKE 1 Un mega 5 mg tablet 2-09 TABLET BY ity of 00:00: MOUTH [place] 00 WEEKLY. Medical TAKE 30 Branch MINUTES BEFORE FUROSEMIDE . METOLAZONE 2018-10 Yes [id number] 5mg TAKE 1 Un mega 5 mg tablet 2-09 TABLET BY ity of 00:00: MOUTH [place] 00 WEEKLY. Medical TAKE 30 Branch MINUTES BEFORE FUROSEMIDE . METOLAZONE 2018-10 Yes [id number] 5mg TAKE 1 Un mega 5 mg tablet 2-09 TABLET BY ity of 00:00: MOUTH [place] 00 WEEKLY. Medical TAKE 30 Branch MINUTES BEFORE FUROSEMIDE . METOLAZONE 2018-10 Yes [id number] 5mg TAKE 1 Un mega 5 mg tablet 2-09 TABLET BY ity of 00:00: MOUTH [place] 00 WEEKLY. Medical TAKE 30 Branch MINUTES BEFORE FUROSEMIDE . METOLAZONE 2018-10 Yes [id number] 5mg TAKE 1 Un mega 5 mg tablet 2-09 TABLET BY ity of 00:00: MOUTH [place] 00 WEEKLY. Medical TAKE 30 Branch MINUTES BEFORE FUROSEMIDE . METOLAZONE 2018-10 Yes [id number] 5mg TAKE 1 Un mega 5 mg tablet 2-09 TABLET BY ity of 00:00: MOUTH [place] 00 WEEKLY. Medical TAKE 30 Branch MINUTES BEFORE FUROSEMIDE . METOLAZONE 2018-10 Yes [id number] 5mg TAKE 1 Un mega 5 mg tablet 2-09 TABLET BY ity of 00:00: MOUTH [place] 00 WEEKLY. Medical TAKE 30 Branch MINUTES BEFORE FUROSEMIDE . METOLAZONE 2018-10 Yes [id number] 5mg TAKE 1 Un mega 5 mg tablet 2-09 TABLET BY ity of 00:00: MOUTH [place] 00 WEEKLY. Medical TAKE 30 Branch MINUTES BEFORE FUROSEMIDE . METOLAZONE 2018- Yes [id number] 5mg TAKE 1 Un mega 5 mg tablet 2-09 TABLET BY ity of 00:00: MOUTH [place] 00 WEEKLY. Medical TAKE 30 Branch MINUTES BEFORE FUROSEMIDE . METOLAZONE 2018-10 Yes [id number] 5mg TAKE 1 Un mega 5 mg [...] of (ALPHAGAN P 16:31: each eye 3 [place] OPHTHALMIC) 49 (three) Medic al times Branch daily as needed (eye dryness). brimonidine 2019-0 Yes 1[drp] Place 1 U nivers tartrate 7-11 Drop in ity of (ALPHAGAN P 16:31: each eye 3 [place] OPHTHALMIC) 49 (three) Medic al times Branch daily as needed (eye dryness). brimonidine 2019-0 Yes 1[drp] Place 1 U nivers tartrate 7-11 Drop in ity of (ALPHAGAN P 16:31: each eye 3 [place] OPHTHALMIC) 49 (three) Medic al times Branch daily as needed (eye dryness). brimonidine 2019-0 Yes 1[drp] Place 1 U nivers tartrate 7-11 Drop in ity of (ALPHAGAN P 16:31: each eye 3 [place] OPHTHALMIC) 49 (three) Medic al times Branch daily as needed (eye dryness). brimonidine 2019-0 Yes 1[drp] Place 1 U nivers tartrate 7-11 Drop in ity of (ALPHAGAN P 16:31: each eye 3 [place] OPHTHALMIC) 49 (three) Medic al times Branch daily as needed (eye dryness). brimonidine 2019-0 Yes 1[drp] Place 1 U nivers tartrate 7-11 Drop in ity of (ALPHAGAN P 16:31: each eye 3 [place] OPHTHALMIC) 49 (three) Medic al times Branch daily as needed (eye dryness). brimonidine 2019-0 Yes 1[drp] Place 1 U nivers tartrate 7-11 Drop in ity of (ALPHAGAN P 16:31: each eye 3 [place] OPHTHALMIC) 49 (three) Medic al times Branch daily as needed (eye dryness). brimonidine 2019-0 Yes 1[drp] Place 1 U nivers tartrate 7-11 Drop in ity of (ALPHAGAN P 16:31: each eye 3 [place] OPHTHALMIC) 49 (three) Medic al times Branch daily as needed (eye dryness). brimonidine 2019-0 Yes 1[drp] Place 1 U nivers tartrate 7-11 Drop in ity of (ALPHAGAN P 16:31: each eye 3 [place] OPHTHALMIC) 49 (three) Medic al times Branch daily as needed (eye dryness). brimonidine 2019-0 Yes 1[drp] Place 1 U nivers tartrate 7-11 Drop in ity of (ALPHAGAN P 16:31: each eye 3 [place] OPHTHALMIC) 49 (three) Medic al times Branch daily as needed (eye dryness). brimonidine 2019-0 Yes 1[drp] Place 1 U nivers tartrate 7-11 Drop in ity of (ALPHAGAN P 16:31: each eye 3 [place] OPHTHALMIC) 49 (three) Medic al times Branch daily as needed (eye dryness). brimonidine 2019-0 Yes 1[drp] Place 1 U nivers tartrate 7-11 Drop in ity of (ALPHAGAN P 16:31: each eye 3 [place] OPHTHALMIC) 49 (three) Medic al times Branch daily as needed (eye dryness). brimonidine 2019-0 Yes 1[drp] Place 1 U nivers tartrate 7-11 Drop in ity of (ALPHAGAN P 16:31: each eye 3 [place] OPHTHALMIC) 49 (three) Medic al times Branch daily as needed (eye dryness). brimonidine 2019-0 Yes 1[drp] Place 1 U nivers tartrate 7-11 Drop in ity of (ALPHAGAN P 16:31: each eye 3 [place] OPHTHALMIC) 49 (three) Medic al times Branch daily as needed (eye dryness). brimonidine 2019-0 Yes 1[drp] Place 1 U nivers tartrate 7-11 Drop in ity of (ALPHAGAN P 16:31: each eye 3 [place] OPHTHALMIC) 49 (three) Medic al times Branch daily as needed (eye dryness). brimonidine 2019-0 Yes 1[drp] Place 1 U nivers tartrate 7-11 Drop in ity of (ALPHAGAN P 16:31: each eye 3 [place] OPHTHALMIC) 49 (three) Medic al times Branch [...] 7-11 mouth. ity of ITAMIN D3 16:07: [place] (CALTRATE 35 Medical 600 + D Branch [...] 7-11 mouth. ity of ITAMIN D3 16:07: [place] (CALTRATE 35 Medical 600 + D Branch ORAL) CALCIUM 2019-0 Yes Take by [employer] CARBONATE/V 7-11 mouth. ity of ITAMIN D3 16:07: [place] (CALTRATE 35 Medical 600 + D Branch ORAL) CALCIUM 2019-0 Yes Take by [employer] CARBONATE/V 711 mouth. ity of ITAMIN D3 16:07: [place] (CALTRATE 35 Medical 600 + D Branch ORAL) brimonidine 2019-0 Yes 1[drp] Place 1 U nivers tartrate 7-11 Drop in ity of (ALPHAGAN P 11:31: each eye 3 [place] OPHTHALMIC) 49 (three) Medic al times Branch daily as needed (eye dryness). brimonidine 2019-0 Yes 1[drp] Place 1 U nivers tartrate 7-11 Drop in ity of (ALPHAGAN P 11:31: each eye 3 [place] OPHTHALMIC) 49 (three) Medic al times Branch daily as needed (eye dryness). brimonidine 2018-0 Yes 1[drp] Place 1 U nivers tartrate 7-11 Drop in ity of (ALPHAGAN P 11:31: each eye 3 [place] OPHTHALMIC) 49 (three) Medic al times Branch daily as needed (eye dryness). CALCIUM 2019-0 Yes Take by [employer] CARBONATE/V 7-11 mouth. ity of ITAMIN D3 11:07: [place] (CALTRATE 35 Medical 600 + D Branch ORAL) CALCIUM 2019-0 Yes Take by [employer] CARBONATE/V 11 mouth. ity of ITAMIN D3 11:07: [place] (CALTRATE 35 Medical 600 + D Branch ORAL) CALCIUM 2019-0 Yes Take by [employer] CARBONATE/V -11 mouth. ity of ITAMIN D3 11:07: [place] (CALTRATE 35 Medical 600 + D Branch ORAL) vit 2019-0 Yes [id number] 1{capsu Take 1 U nivers C,E-Zn-mercedes 04-23 [id number] le} capsule by ity of r-lutein-ze 00:00: mouth 2 [place] 00 (two) Medical (PRESERVISI times Branch ON AREDS-2) daily. 250-200-40- 1 mg-unit-mg- mg Cap vit 2019-0 Yes [id number] 1{capsu Take 1 U nivers C,E-Zn-mercedes 7-11 [id number] le} capsule by ity of r-lutein-ze 00:00: mouth 2 [place] 00 (two) Medical (PRESERVISI times Branch ON AREDS-2) daily. 250-200-40- 1 mg-unit-mg- mg Cap vit 2019-0 Yes [id number] 1{capsu Take 1 U nivers C,E-Zn-mercedes 7-11 [id number] le} capsule by ity of r-lutein-ze 00:00: mouth 2 [place] 00 (two) Medical (PRESERVISI times Branch ON AREDS-2) daily. 250-200-40- 1 mg-unit-mg- mg Cap vit 2019-0 Yes [id number] 1{capsu Take 1 U nivers C,E-Zn-mercedes 7-11 [id number] le} capsule by ity of r-lutein-ze 00:00: mouth 2 [place] 00 (two) Medical (PRESERVISI times Branch ON AREDS-2) daily. 250-200-40- 1 mg-unit-mg- mg Cap vit 2019-0 Yes [id number] 1{capsu Take 1 U nivers C,E-Zn-mercedes 7-11 [id number] le} capsule by ity of r-lutein-ze 00:00: mouth 2 [place] 00 (two) Medical (PRESERVISI times Branch ON AREDS-2) daily. 250-200-40- 1 mg-unit-mg- mg Cap vit 2019-0 Yes [id number] 1{capsu Take 1 U nivers C,E-Zn-mercedes 7-11 [id number] le} capsule by ity of r-lutein-ze 00:00: mouth 2 [place] 00 (two) Medical (PRESERVISI times Branch ON AREDS-2) daily. 250-200-40- 1 mg-unit-mg- mg Cap vit 2019-0 Yes [id number] 1{capsu Take 1 U nivers C,E-Zn-mercedes 7-11 [id number] le} capsule by ity of r-lutein-ze 00:00: mouth 2 [place] 00 (two) Medical (PRESERVISI times Branch ON AREDS-2) daily. 250-200-40- 1 mg-unit-mg- mg Cap vit 2019-0 Yes [id number] 1{capsu Take 1 U nivers C,E-Zn-mercedes 7-11 [id number] le} capsule by ity of r-lutein-ze 00:00: mouth 2 [place] 00 (two) Medical (PRESERVISI times Branch ON AREDS-2) daily. 250-200-40- 1 mg-unit-mg- mg Cap vit 2018-0 Yes [id number] 1{capsu Take 1 U nivers C,E-Zn-mercedes 7-11 [id number] le} capsule by ity of r-lutein-ze 00:00: mouth 2 [place] 00 (two) Medical (PRESERVISI times Branch ON AREDS-2) daily. 250-200-40- 1 mg-unit-mg- mg Cap vit 2018- Yes [id number] 1{capsu Take 1 U nivers C,E-Zn-mercedes 7-11 [id number] le} capsule by ity of r-lutein-ze 00:00: mouth 2 [place] 00 (two) Medical (PRESERVISI times Branch ON AREDS-2) daily. 250-200-40- 1 mg-unit-mg- mg Cap vit 2018- Yes [id number] 1{capsu Take 1 U nivers C,E-Zn-mercedes 7-11 [id number] le} capsule by ity of r-lutein-ze 00:00: mouth 2 [place] 00 (two) Medical (PRESERVISI times Branch ON AREDS-2) daily. 250-200-40- 1 mg-unit-mg- mg Cap vit 2018-0 Yes [id number] 1{capsu Take 1 U nivers C,E-Zn-mercedes 7-11 [id number] le} capsule by ity of r-lutein-ze 00:00: mouth 2 [place] 00 (two) Medical (PRESERVISI times Branch ON AREDS-2) daily. 250-200-40- 1 mg-unit-mg- mg Cap vit 2018-0 Yes [id number] 1{capsu Take 1 U nivers C,E-Zn-mercedes 7-11 [id number] le} capsule by ity of r-lutein-ze 00:00: mouth 2 [place] 00 (two) Medical (PRESERVISI times Branch ON AREDS-2) daily. 250-200-40- 1 mg-unit-mg- mg Cap vit 2019-0 Yes [id number] 1{capsu Take 1 U nivers C,E-Zn-mercedes 7-11 [id number] le} capsule by ity of r-lutein-ze 00:00: mouth 2 [place] 00 (two) Medical (PRESERVISI times Branch ON AREDS-2) daily. 250-200-40- 1 mg-unit-mg- mg Cap vit 2019-0 Yes [id number] 1{capsu Take 1 U nivers C,E-Zn-mercedes 7-11 [id number] le} capsule by ity of r-lutein-ze 00:00: mouth 2 [place] 00 (two) Medical (PRESERVISI times Branch ON AREDS-2) daily. 250-200-40- 1 mg-unit-mg- mg Cap vit 2019-0 Yes [id number] 1{capsu Take 1 U nivers C,E-Zn-mercedes 7-11 [id number] le} capsule by ity of r-lutein-ze 00:00: mouth 2 [place] 00 (two) Medical (PRESERVISI times Branch ON AREDS-2) daily. 250-200-40- 1 mg-unit-mg- mg Cap vit 2019-0 Yes [id number] 1{capsu Take 1 U nivers C,E-Zn-mercedes 7-11 [id number] le} capsule by ity of r-lutein-ze 00:00: mouth 2 [place] 00 (two) Medical (PRESERVISI times Branch ON AREDS-2) daily. 250-200-40- 1 mg-unit-mg- mg Cap vit 2019-0 Yes [id number] 1{capsu Take 1 U nivers C,E-Zn-mercedes 7-11 [id number] le} capsule by ity of r-lutein-ze 00:00: mouth 2 [place] 00 (two) Medical (PRESERVISI times Branch ON AREDS-2) daily. 250-200-40- 1 mg-unit-mg- mg Cap vit 2019-0 Yes [id number] 1{capsu Take 1 U nivers C,E-Zn-mercedes 7 [id number] le} capsule by ity of r-lutein-ze 00:00: mouth 2 [place] 00 (two) [facility] AR[facility]) daily. 250-200-40- 1 mg-unit-mg- mg Cap furosemide Yes [id number] 80mg Take 2 Un mega (LASIX) 40 2-20 tablets by ity of mg tablet 00:00: mouth [place] 00 every Medical morning Branch and evening. Keep on file. atorvastati Yes [id number] 40mg Take 1 Univers n 40 mg 2-20 tablet by ity of tablet 00:00: mouth at [place] 00 bedtime. Medical Keep on Branch file. furosemide Yes [id number] 80mg Take 2 Un mega (LASIX) 40 2-20 tablets by ity of mg tablet 00:00: mouth [place] 00 every Medical morning Branch and evening. Keep on file. atorvastati Yes [id number] 40mg Take 1 Univers n 40 mg 2-20 tablet by ity of tablet 00:00: mouth at [place] 00 bedtime. Medical Keep on Branch file. furosemide Yes [id number] 80mg Take 2 Un mega (LASIX) 40 2-20 tablets by ity of mg tablet 00:00: mouth [place] 00 every Medical morning Branch and evening. Keep on file. atorvastati Yes [id number] 40mg Take 1 Univers n 40 mg 2-20 tablet by ity of tablet 00:00: mouth at [place] 00 bedtime. Medical Keep on Branch file. furosemide Yes [id number] 80mg Take 2 Un mega (LASIX) 40 2-20 tablets by ity of mg tablet 00:00: mouth [place] 00 every Medical morning Branch and evening. Keep on file. atorvastati Yes [id number] 40mg Take 1 Univers n 40 mg 2-20 tablet by ity of tablet 00:00: mouth at [place] 00 bedtime. Medical Keep on Branch file. furosemide Yes [id number] 80mg Take 2 Un mega (LASIX) 40 2-20 tablets by ity of mg tablet 00:00: mouth [place] 00 every Medical morning Branch and evening. Keep on file. atorvastati Yes [id number] 40mg Take 1 Univers n 40 mg 2-20 tablet by ity of tablet 00:00: mouth at [place] 00 bedtime. Medical Keep on Branch file. furosemide 0 Yes [id number] 80mg Take 2 Un mega (LASIX) 40 2-20 tablets by ity of mg tablet 00:00: mouth [place] 00 every Medical morning Branch and evening. Keep on file. furosemide Yes [id number] 80mg Take 2 Un mega (LASIX) 40 2-20 tablets by ity of mg tablet 00:00: mouth [place] 00 every Medical morning Branch and evening. Keep on file. atorvastati Yes [id number] 40mg Take 1 Univers n 40 mg 2-20 tablet by ity of tablet 00:00: mouth at [place] 00 bedtime. Medical Keep on Branch file. atorvastati Yes [id number] 40mg Take 1 Univers n 40 mg 2-20 tablet by ity of tablet 00:00: mouth at [place] 00 bedtime. Medical Keep on Branch file. metOLazone Yes [id number] 5mg Take 1 Un mega 5 mg tablet 2-20 tablet by ity of 00:00: mouth [place] 00 weekly. Medical Take 30 Branch minutes before furosemide . furosemide Yes [id number] 80mg Take 2 Un mega (LASIX) 40 2-20 tablets by ity of mg tablet 00:00: mouth [place] 00 every Medical morning Branch and evening. Keep on file. atorvastati Yes [id number] 40mg Take 1 Univers n 40 mg 2-20 tablet by ity of tablet 00:00: mouth at [place] 00 bedtime. Medical Keep on Branch file. furosemide Yes [id number] 80mg Take 2 Un mega (LASIX) 40 2-20 tablets by ity of mg tablet 00:00: mouth [place] 00 every Medical morning Branch and evening. Keep on file. atorvastati 0 Yes [id number] 40mg Take 1 Univers n 40 mg 2-20 tablet by ity of tablet 00:00: mouth at [place] 00 bedtime. Medical Keep on Branch file. furosemide 2018- Yes [id number] 80mg Take 2 Un mega (LASIX) 40 2-20 tablets by ity of mg tablet 00:00: mouth [place] 00 every Medical morning Branch and evening. Keep on file. atorvastati 2018- Yes [id number] 40mg Take 1 Univers n 40 mg 2-20 tablet by ity of tablet 00:00: mouth at [place] 00 bedtime. Medical Keep on Branch file. furosemide 2019-0 Yes [id number] 80mg Take 2 Un mega (LASIX) 40 2-20 tablets by ity of mg tablet 00:00: mouth [place] 00 every Medical morning Branch and evening. Keep on file. atorvastati 2018- Yes [id number] 40mg Take 1 Univers n 40 mg 2-20 tablet by ity of tablet 00:00: mouth at [place] 00 bedtime. Medical Keep on Branch file. furosemide 2018- Yes [id number] 80mg Take 2 Un mega (LASIX) 40 2-20 tablets by ity of mg tablet 00:00: mouth [place] 00 every Medical morning Branch and evening. Keep on file. atorvastati Yes [id number] 40mg Take 1 Univers n 40 mg 2-20 tablet by ity of tablet 00:00: mouth at [place] 00 bedtime. Medical Keep on Branch file. furosemide 2018-0 Yes [id number] 80mg Take 2 Un mega (LASIX) 40 2-20 tablets by ity of mg tablet 00:00: mouth [place] 00 every Medical morning Branch and evening. Keep on file. atorvastati 2018-0 Yes [id number] 40mg Take 1 Univers n 40 mg 2-20 tablet by ity of tablet 00:00: mouth at [place] 00 bedtime. Medical Keep on Branch file. furosemide 2018-0 Yes [id number] 80mg Take 2 Un mega (LASIX) 40 2-20 tablets by ity of mg tablet 00:00: mouth [place] 00 every Medical morning Branch and evening. Keep on file. atorvastati 2018-0 Yes [id number] 40mg Take 1 Univers n 40 mg 2-20 tablet by ity of tablet 00:00: mouth at [place] 00 bedtime. Medical Keep on Branch file. furosemide 2019-0 Yes [id number] 80mg Take 2 Un mega (LASIX) 40 2-20 tablets by ity of mg tablet 00:00: mouth [place] 00 every Medical morning Branch and evening. Keep on file. atorvastati 2018-0 Yes [id number] 40mg Take 1 Univers n 40 mg 2-20 tablet by ity of tablet 00:00: mouth at [place] 00 bedtime. Medical Keep on Branch file. furosemide Yes [id number] 80mg Take 2 Un mega (LASIX) 40 2-20 tablets by ity of mg tablet 00:00: mouth [place] 00 every Medical morning Branch and evening. Keep on file. atorvastati Yes [id number] 40mg Take 1 Univers n 40 mg 2-20 tablet by ity of tablet 00:00: mouth at [place] 00 bedtime. Medical Keep on Branch file. furosemide Yes [id number] 80mg Take 2 Un mega (LASIX) 40 2-20 tablets by ity of mg tablet 00:00: mouth [place] 00 every Medical morning Branch and evening. Keep on file. atorvastati Yes [id number] 40mg Take 1 Univers n 40 mg 2-20 tablet by ity of tablet 00:00: mouth at [place] 00 bedtime. Medical Keep on Branch file. metOLazone Yes [id number] 5mg Take 1 Un mega 5 mg tablet 2-20 tablet by ity of 00:00: mouth [place] 00 weekly. Medical Take 30 Branch minutes before furosemide . furosemide Yes [id number] 80mg Take 2 Un mega (LASIX) 40 2-20 tablets by ity of mg tablet 00:00: mouth [place] 00 every Medical morning Branch and evening. Keep on file. atorvastati Yes [id number] 40mg Take 1 Univers n 40 mg 2-20 tablet by ity of tablet 00:00: mouth at [place] 00 bedtime. Medical Keep on Branch file. metOLazone 0 Yes [id number] 5mg Take 1 Un mega 5 mg tablet 2-20 tablet by ity of 00:00: mouth [place] 00 weekly. Medical Take 30 Branch minutes before furosemide . furosemide Yes [id number] 80mg Take 2 Un mega (LASIX) 40 2-20 tablets by ity of mg tablet 00:00: mouth [place] 00 every Medical morning Branch and evening. Keep on file. atorvastati Yes [id number] 40mg Take 1 Univers n 40 mg 2-20 tablet by ity of tablet 00:00: mouth at [place] 00 bedtime. Medical Keep on Branch file. metoprolol 2017-10 Yes [id number] 100mg Take 1 Univers tartrate 2-27 tablet by ity of 100 mg 00:00: mouth 2 [place] tablet 00 (two) Medical times Branch daily. metoprolol 2017-10 Yes [id number] 100mg Take 1 Univers tartrate 2-27 tablet by ity of 100 mg 00:00: mouth 2 [place] tablet 00 (two) Medical times Branch daily. metoprolol 2017-10 Yes [id number] 100mg Take 1 Univers tartrate 2-27 tablet by ity of 100 mg 00:00: mouth 2 [place] tablet 00 (two) Medical times Branch daily. metoprolol 2017-10 Yes [id number] 100mg Take 1 Univers tartrate 2-27 tablet by ity of 100 mg 00:00: mouth 2 [place] tablet 00 (two) Medical times Branch daily. metoprolol 2017-10 Yes [id number] 100mg Take 1 Univers tartrate 2-27 tablet by ity of 100 mg 00:00: mouth 2 [place] tablet 00 (two) Medical times Branch daily. metoprolol 2017-10 Yes [id number] 100mg Take 1 Univers tartrate 2-27 tablet by ity of 100 mg 00:00: mouth 2 [place] tablet 00 (two) Medical times Branch daily. metoprolol 2017-10 Yes [id number] 100mg Take 1 Univers tartrate 2-27 tablet by ity of 100 mg 00:00: mouth 2 [place] tablet 00 (two) Medical times Branch daily. metoprolol 2017-10 Yes [id number] 100mg Take 1 Univers tartrate 2-27 tablet by ity of 100 mg 00:00: mouth 2 [place] tablet 00 (two) Medical times Branch daily. metoprolol 2017-10 Yes [id number] 100mg Take 1 Univers tartrate 2-27 tablet by ity of 100 mg 00:00: mouth 2 [place] tablet 00 (two) Medical times Branch daily. metoprolol 2017-10 Yes [id number] 100mg Take 1 Univers tartrate 2-27 tablet by ity of 100 mg 00:00: mouth 2 [place] tablet 00 (two) Medical times Branch daily. metoprolol 2017-10 2020- No [id number] 100mg Take 1 Univers tartrate 2-27 03-16 [...] tablet by ity of 00:00: mouth 2 (two) Medical times Branch daily. KCL 10 mEq 2017-10 Yes 10meq Take 1 Univ ers tablet 2-10 tablet by ity of 00:00: mouth 2 (two) Medical times Branch daily. rivaroxaban 2017-10 [...] tablet by ity of 00:00: mouth 2 (two) Medical times Branch daily. KCL 10 mEq 2017-10 Yes 10meq Take 1 Univ ers tablet 2-10 tablet by ity of 00:00: mouth 2 (two) Medical times Branch daily. KCL 10 [...] Medical WITH Branch EVENING MEAL.Keep on file. KCL 10 mEq 2017-10 Yes 10meq Take 1 Univ ers tablet 2-10 tablet by ity of 00:00: mouth (two) Medical times Branch daily. olmesartan 2017-10 Yes 40mg Take 1 Unive [...] S t (LANOXIN) 8-04 mcg [facility] MG 14:51: mouth Medical tablet 07 daily. [place] olmesartan- Yes 1{tbl} QD Take [address] hydrochloro 8-04 tablet by [place] es thiazide 14:51: mouth Medical (BENICAR 07 daily. [place] HCT) 40-25 mg per tablet rivaroxaban Yes 20mg QD Take [address] [facility] (XARELTO) 8-04 by [facility] 20 mg Tab 14:51: daily. Medica l tablet 07 [place] Alphagan P Alphagan P Yes Carlos not Common Diaz defined [facility] Xyzal Xyzal Yes Carlos not Common Diaz defined [facility] Atorvastati Atorvastati Yes [place] not Common n Calcium n Calcium Diaz defined [facility] Olmesartan Olmesartan Yes Carlos not Common Medoxomil Medoxomil Diaz defined Sp [facility] potassium potassium Yes Carlos not Co mmon Diaz defined [facility] Metolazone Metolazone Yes Carlos not Common Diaz defined [facility] PreserVisio PreserVisio Yes [place] not Common n/Lutein n/Lutein Diaz defined [facility] tylenol tylenol Yes Carlos not Common Diaz defined [facility] Furosemide Furosemide Yes Carlos not Common Diaz defined [facility] Caltrate Caltrate Yes Carlos not Comm on 600+D 600+D Diaz defined [facility] Xarelto Xarelto Yes Carlos not Common Diaz defined [facility] Cranberry Cranberry Yes Carlos not Co mmon Diaz defined [facility] Duloxetine Duloxetine Yes Carlos not Common HCl HCl Diaz defined [facility] Diltiazem Diltiazem Yes Carlos TAKE 1 Common HCl ER HCl ER Diaz CAPSULE BY Spiri t MOUTH - CHI TWICE A [facility] Immunizations Ordered Filled Immunization Date Status Comments [facility] e Immunization Name Name SARS-COV-2 COVID-19 2022-03-05 Completed Unive rsity of MODERNA 0.25ML 00:00:00 [place] Medi catherine BOOSTER VACCINE Branch SARS-COV-2 COVID-19 2021-10-04 Completed Unive rsity of MODERNA BOOSTER 00:00:00 [place] Med ical VACCINE Branch SARS-COV-2 COVID-19 2021-10-04 Completed Unive rsity of MODERNA 0.25ML 00:00:00 [place] Medi catherine BOOSTER VACCINE Branch SARS-COV-2 COVID-19 2020-11-14 Completed Unive rsity of MODERNA VACCINE 00:00:00 [place] Med ical Branch SARS-COV-2 COVID-19 2020-11-14 Completed Unive rsity of MODERNA VACCINE 00:00:00 [place] [facility] ical Branch SARS-COV-2 COVID-19 2020-11-14 Completed Unive rsity of MODERNA VACCINE 00:00:00 [place] [facility] ical Branch SARS-COV-2 COVID-19 2020-10-17 Completed Unive rsity of MODERNA VACCINE 00:00:00 [place] [facility] ical Branch SARS-COV-2 COVID-19 2020-10-17 Completed Unive rsity of MODERNA VACCINE 00:00:00 [facility] ical Branch SARS-COV-2 COVID-19 2020-10-17 Completed Unive rsity of MODERNA VACCINE 00:00:00 [facility] ical Branch PPD (TB) 2019-05-12 Completed University of 00:00:00 [facility] Pneumococcal 2019-05-12 Completed University o f Polysaccharide, 00:00:00 [facility] PPSV23 (PNEUMOVAX) Branch PPD (TB) 2019-05-12 Completed University 00:00:00 [facility] Pneumococcal 2019-05-12 Completed University o f Polysaccharide, 00:00:00 [place] Med ical PPSV23 (PNEUMOVAX) Branch PPD (TB) 2019-05-12 Completed University of 00:00:00 [facility] Pneumococcal 2019-05-12 Completed University o f Polysaccharide, 00:00:00 [place] Med ical PPSV23 (PNEUMOVAX) Branch PPD (TB) 2019-05-12 Completed University of 00:00:00 [facility] Pneumococcal 2019-05-12 Completed University o f Polysaccharide, 00:00:00 [place] Med ical PPSV23 (PNEUMOVAX) Branch PPD (TB) 2019-05-12 Completed University of 00:00:00 [facility] Pneumococcal 2019-05-12 Completed University o f Polysaccharide, 00:00:00 [place] Med ical PPSV23 (PNEUMOVAX) Branch PPD (TB) 2019-05-12 Completed University of 00:00:00 [facility] Pneumococcal 2019-05-12 Completed University o f Polysaccharide, 00:00:00 [place] Med ical PPSV23 (PNEUMOVAX) Branch PPD (TB) 2019-05-12 Completed University of 00:00:00 [facility] Pneumococcal 2019-05-12 Completed University o f Polysaccharide, 00:00:00 [place] Med ical PPSV23 (PNEUMOVAX) Branch PPD (TB) 2019-05-12 Completed University of 00:00:00 [facility] Pneumococcal 2019-05-12 Completed University o f Polysaccharide, 00:00:00 [place] Med ical PPSV23 (PNEUMOVAX) Branch PPD (TB) 2019-05-12 Completed University of 00:00:00 [facility] Pneumococcal 2019-05-12 Completed University o f Polysaccharide, 00:00:00 [place] Med ical PPSV23 (PNEUMOVAX) Branch PPD (TB) 2019-05-12 Completed University of 00:00:00 [facility] Pneumococcal 2019-05-12 Completed University o f Polysaccharide, 00:00:00 [place] Med ical PPSV23 (PNEUMOVAX) Branch PPD (TB) 2019-05-12 Completed University of 00:00:00 [facility] Pneumococcal 2019-05-12 Completed University o f Polysaccharide, 00:00:00 [place] Med ical PPSV23 (PNEUMOVAX) Branch PPD (TB) 2019-05-12 Completed University of 00:00:00 [facility] Pneumococcal 2019-05-12 Completed University o f Polysaccharide, 00:00:00 [place] Med ical PPSV23 (PNEUMOVAX) Branch PPD (TB) 2019-05-12 Completed University of 00:00:00 [facility] Pneumococcal 2019-05-12 Completed University o f Polysaccharide, 00:00:00 [place] Med ical PPSV23 (PNEUMOVAX) Branch PPD (TB) 2019-05-12 Completed University of 00:00:00 [facility] Pneumococcal 2019-05-12 Completed University o f Polysaccharide, 00:00:00 [place] Med ical PPSV23 (PNEUMOVAX) Branch PPD (TB) 2019-05-12 Completed University of 00:00:00 [facility] Pneumococcal 2019-05-12 Completed University o f Polysaccharide, 00:00:00 [place] Med ical PPSV23 (PNEUMOVAX) Branch PPD (TB) 2019-05-12 Completed University of 00:00:00 [facility] Pneumococcal 2019-05-12 Completed University o f Polysaccharide, 00:00:00 [facility] ical PPSV23 (PNEUMOVAX) Branch PPD (TB) 2019-05-12 Completed University of 00:00:00 [facility] Pneumococcal 2019-05-12 Completed University o f Polysaccharide, 00:00:00 [facility] ical PPSV23 (PNEUMOVAX) Branch PPD (TB) 2019-05-12 Completed University of 00:00:00 [facility] Pneumococcal 2019-05-12 Completed University o f Polysaccharide, 00:00:00 [facility] ical PPSV23 (PNEUMOVAX) Branch PPD (TB) 2019-05-12 Completed University of 00:00:00 [facility] Pneumococcal 2019-05-12 Completed University o f Polysaccharide, 00:00:00 [facility] ical PPSV23 (PNEUMOVAX) Branch Influenza Virus 2018-07-14 Completed Universit y of Vaccine 00:00:00 [facility] Influenza Virus 2018-07-14 Completed Universit y of Vaccine 00:00:00 [facility] Influenza Virus 2018-07-14 Completed Universit y of Vaccine 00:00:00 [facility] Influenza Virus 2018-07-14 Completed Universit y of Vaccine 00:00:00 [facility] Influenza Virus 2018-07-14 Completed Universit y of Vaccine 00:00:00 [facility] Influenza Virus 2018-07-14 Completed Universit y of Vaccine 00:00:00 [facility] Influenza Virus 2018-07-14 Completed Universit y of Vaccine 00:00:00 [facility] Influenza Virus 2018-07-14 Completed Universit y of Vaccine 00:00:00 [facility] Influenza Virus 2018-07-14 Completed Universit y of Vaccine 00:00:00 [facility] Influenza Virus 2018-07-14 Completed Universit y of Vaccine 00:00:00 [facility] Influenza Virus 2018-07-14 Completed Universit y of Vaccine 00:00:00 [facility] Influenza Virus 2018-07-14 Completed Universit y of Vaccine 00:00:00 [facility] Influenza Virus 2018-07-14 Completed Universit y of Vaccine 00:00:00 [facility] Influenza Virus 2018-07-14 Completed Universit y of Vaccine 00:00:00 [facility] Influenza Virus 2018-07-14 Completed Universit y of Vaccine 00:00:00 [facility] Influenza Virus 2018-07-14 Completed Universit y of Vaccine 00:00:00 [facility] Influenza Virus 2018-07-14 Completed Universit y of Vaccine 00:00:00 [facility] Influenza Virus 2018-07-14 Completed Universit y of Vaccine 00:00:00 [facility] Influenza Virus 2018-07-14 Completed Universit y of Vaccine 00:00:00 [facility] Influenza High Dose 2017-07-27 Completed Unive rsity of 00:00:00 [facility] Influenza High Dose 2017-07-27 Completed Unive rsity of 00:00:00 [facility] Influenza High Dose 2017-07-27 Completed Unive rsity of 00:00:00 [facility] Influenza High Dose 2017-07-27 Completed Unive rsity of 00:00:00 [facility] Influenza High Dose 2017-07-27 Completed Unive rsity of 00:00:00 [facility] Influenza High Dose 2017-07-27 Completed Unive rsity of 00:00:00 [facility] Influenza High Dose 2017-07-27 Completed Unive rsity of 00:00:00 [facility] Influenza High Dose 2017-07-27 Completed Unive rsity of 00:00:00 [facility] Influenza High Dose 2017-07-27 Completed Unive rsity of 00:00:00 [facility] Influenza High Dose 2017-07-27 Completed Unive rsity of 00:00:00 [facility] Influenza High Dose 2017-07-27 Completed Unive rsity of 00:00:00 [facility] Influenza High Dose 2017-07-27 Completed Unive rsity of 00:00:00 [facility] Influenza High Dose 2017-07-27 Completed Unive rsity of 00:00:00 [facility] Influenza High Dose 2017-07-27 Completed Unive rsity of 00:00:00 [facility] Influenza High Dose 2017-07-27 Completed Unive rsity of 00:00:00 [facility] Influenza High Dose 2017-07-27 Completed Unive rsity of 00:00:00 [facility] Influenza High Dose 2017-07-27 Completed Unive rsity of 00:00:00 [facility] Influenza High Dose 2017-07-27 Completed Unive rsity of 00:00:00 [facility] Influenza High Dose 2017-07-27 Completed Unive rsity of 00:00:00 [facility] DTAP 2016-09-11 Completed University of 00:00:00 [facility] Pneumococcal 13 2016-09-11 Completed Universit y of Conjugate, PCV13 00:00:00 [facility] [place] [facility] dical (Prevnar 13) Branch DTAP 2016-09-11 Completed University of 00:00:00 [facility] Pneumococcal 13 2016-09-11 Completed Universit y of Conjugate, PCV13 00:00:00 [facility] [place] [facility] dical (Prevnar 13) Branch DTAP 2016-09-11 Completed University of 00:00:00 [facility] Pneumococcal 13 2016-09-11 Completed Universit y of Conjugate, PCV13 00:00:00 [facility] [place] [facility] dical (Prevnar 13) Branch DTAP 2016-09-11 Completed University of 00:00:00 [facility] Pneumococcal 13 2016-09-11 Completed Universit y of Conjugate, PCV13 00:00:00 [facility] [place] [facility] dical (Prevnar 13) Branch DTAP 2016-09-11 Completed University of 00:00:00 [facility] Pneumococcal 13 2016-09-11 Completed Universit y of Conjugate, PCV13 00:00:00 [facility] [place] [facility] dical (Prevnar 13) Branch DTAP 2016-09-11 Completed University of 00:00:00 [facility] Pneumococcal 13 2016-09-11 Completed Universit y of Conjugate, PCV13 00:00:00 [facility] [place] [facility] dical (Prevnar 13) Branch DTAP 2016-09-11 Completed University of 00:00:00 [facility] Pneumococcal 13 2016-09-11 Completed Universit y of Conjugate, PCV13 00:00:00 [place] [facility] dical (Prevnar 13) Branch DTAP 2016-09-11 Completed University of 00:00:00 [facility] Pneumococcal 13 2016-09-11 Completed Universit y of Conjugate, PCV13 00:00:00 [facility] [place] [facility] dical (Prevnar 13) Branch DTAP 2016-09-11 Completed University of 00:00:00 [facility] Pneumococcal 13 2016-09-11 Completed Universit y of Conjugate, PCV13 00:00:00 [place] Me dical (Prevnar 13) Branch DTAP 2016-09-11 Completed University of 00:00:00 [facility] Pneumococcal 13 2016-09-11 Completed Universit y of Conjugate, PCV13 00:00:00 [place] Me dical (Prevnar 13) Branch DTAP 2016-09-11 Completed University of 00:00:00 [facility] Pneumococcal 13 2016-09-11 Completed Universit y of Conjugate, PCV13 00:00:00 [facility] [place] [facility] dical (Prevnar 13) Branch DTAP 2016-09-11 Completed University of 00:00:00 [facility] Pneumococcal 13 2016-09-11 Completed Universit y of Conjugate, PCV13 00:00:00 [facility] [place] [facility] dical (Prevnar 13) Branch DTAP 2016-09-11 Completed University of 00:00:00 [facility] Pneumococcal 13 2016-09-11 Completed Universit y of Conjugate, PCV13 00:00:00 [facility] [place] [facility] dical (Prevnar 13) Branch DTAP 2016-09-11 Completed University of 00:00:00 [facility] Pneumococcal 13 2016-09-11 Completed Universit y of Conjugate, PCV13 00:00:00 [place] Me dical (Prevnar 13) Branch DTAP 2016-09-11 Completed University of 00:00:00 [facility] Pneumococcal 13 2016-09-11 Completed Universit y of Conjugate, PCV13 00:00:00 [place] Me dical (Prevnar 13) Branch DTAP 2016-09-11 Completed University of 00:00:00 [facility] Pneumococcal 13 2016-09-11 Completed Universit y of Conjugate, PCV13 00:00:00 [facility] [place] [facility] dical (Prevnar 13) Branch DTAP 2016-09-11 Completed University of 00:00:00 [place] [facility] Pneumococcal 13 2016-09-11 Completed Universit y of Conjugate, PCV13 00:00:00 [facility] [place] [facility] dical (Prevnar 13) Branch DTAP 2016-09-11 Completed University of 00:00:00 [facility] Branch Pneumococcal 13 2016-09-11 Completed Universit y of Conjugate, PCV13 00:00:00 [facility] [place] [facility] dical (Prevnar 13) Branch DTAP 2016-09-11 Completed University of 00:00:00 [facility] Pneumococcal 13 2016-09-11 Completed Universit y of Conjugate, PCV13 00:00:00 [facility] [place] [facility] dical (Prevnar 13) Branch Influenza High Dose 2016-07-02 Completed Unive rsity of 00:00:00 [facility] Influenza High Dose 2016-07-02 Completed Unive rsity of 00:00:00 [facility] Influenza High Dose 2016-07-02 Completed Unive rsity of 00:00:00 [facility] Influenza High Dose 2016-07-02 Completed Unive rsity of 00:00:00 [facility] Influenza High Dose 2016-07-02 Completed Unive rsity of 00:00:00 [facility] Influenza High Dose 2016-07-02 Completed Unive rsity of 00:00:00 [facility] Influenza High Dose 2016-07-02 Completed Unive rsity of 00:00:00 [facility] Influenza High Dose 2016-07-02 Completed Unive rsity of 00:00:00 [facility] Influenza High Dose 2016-07-02 Completed Unive rsity of 00:00:00 [facility] Influenza High Dose 2016-07-02 Completed Unive rsity of 00:00:00 [facility] Influenza High Dose 2016-07-02 Completed Unive rsity of 00:00:00 [facility] Influenza High Dose 2016-07-02 Completed Unive rsity of 00:00:00 [facility] Influenza High Dose 2016-07-02 Completed Unive rsity of 00:00:00 [facility] Influenza High Dose 2016-07-02 Completed Unive rsity of 00:00:00 [facility] Influenza High Dose 2016-07-02 Completed Unive rsity of 00:00:00 [facility] Influenza High Dose 2016-07-02 Completed Unive rsity of 00:00:00 [facility] Influenza High Dose 2016-07-02 Completed Unive rsity of 00:00:00 [place] [facility] Influenza High Dose 2016-07-02 Completed Unive rsity of 00:00:00 [facility] Branch Influenza High Dose 2016-07-02 Completed Unive rsity of 00:00:00 [place] [facility] Zoster(Zostavax)( 2013-09-22 Completed Unive rsity of ingles) 00:00:00 [facility] Branch Zoster(Zostavax)( 2013-09-22 Completed Unive rsity of ingles) 00:00:00 [place] [facility] Zoster(Zostavax)( 2013-09-22 Completed Unive rsity of ingles) 00:00:00 [facility] Branch Zoster(Zostavax)( 2013-09-22 Completed Unive rsity of ingles) 00:00:00 [place] [facility] Zoster(Zostavax)( 2013-09-22 Completed Unive rsity of ingles) 00:00:00 [facility] Branch Zoster(Zostavax)( 2013-09-22 Completed Unive rsity of ingles) 00:00:00 [facility] Branch Zoster(Zostavax)( 2013-09-22 Completed Unive rsity of ingles) 00:00:00 [facility] Branch Zoster(Zostavax)( 2013-09-22 Completed Unive rsity of ingles) 00:00:00 [place] [facility] Zoster(Zostavax)( 2013-09-22 Completed Unive rsity of ingles) 00:00:00 [facility] Branch Zoster(Zostavax)( 2013-09-22 Completed Unive rsity of ingles) 00:00:00 [facility] Branch Zoster(Zostavax)( 2013-09-22 Completed Unive rsity of ingles) 00:00:00 [place] [facility] Zoster(Zostavax)( 2013-09-22 Completed Unive rsity of ingles) 00:00:00 [place] [facility] Zoster(Zostavax)( 2013-09-22 Completed Unive rsity of ingles) 00:00:00 [place] [facility] Zoster(Zostavax)( 2013-09-22 Completed Unive rsity of ingles) 00:00:00 [facility] Branch Zoster(Zostavax)( 2013-09-22 Completed Unive rsity of ingles) 00:00:00 [facility] Zoster(Zostavax)( 2013-09-22 Completed Unive rsity of ingles) 00:00:00 [facility] Zoster(Zostavax)( 2013-09-22 Completed Unive rsity of ingles) 00:00:00 [facility] Zoster(Zostavax)( 2013-09-22 Completed Unive rsity of ingles) 00:00:00 [facility] Zoster(Zostavax)( 2013-09-22 Completed Unive rsity of ingles) 00:00:00 [facility] Vital Signs Vital Name Observation Time Observation Value Comments Source Systolic blood 2021-09-16 19:00:00 155 mm[Hg] Univer sity of pressure [facility] Diastolic blood 2021-09-16 19:00:00 57 mm[Hg] Unive rsity of pressure [facility] Heart rate 2021-09-16 19:00:00 54 /min [facility] Respiratory rate 2021-09-16 19:00:00 17 /min [facility] Oxygen saturation in 2021-09-16 19:00:00 98 /min [facility] Arterial blood by [facility] Pulse oximetry Saline Body temperature 2021-09-16 17:42:00 36.72 Nicole [facility] Body height 2021-09-16 17:42:00 167.6 cm [facility] Body weight 2021-09-16 17:42:00 76.204 kg [facility] BMI 2021-09-16 17:42:00 27.12 kg/m2 [facility] Systolic blood 2019-11-09 18:57:00 131 mm[Hg] Univer sity of pressure [facility] Diastolic blood 2019-11-09 18:57:00 81 mm[Hg] Unive rsity of pressure [facility] Heart rate 2019-11-09 18:57:00 90 /min [facility] Body temperature 2019-11-09 18:57:00 36.17 Nicole [facility] 2019-11-09 18:57:00 20 /[facility] height 2019-11-09 18:57:00 165.1 cm [facility] [place] [facility] Body weight 2019-11-09 18:57:00 76.2 kg [facility] [place] [facility] BMI 2019-11-09 18:57:00 27.96 kg/m2 [facility] of [facility] Systolic blood 2019-11-09 18:57:00 131 mm[Hg] Univer sity of pressure [facility] Diastolic blood 2019-11-09 18:57:00 81 mm[Hg] Unive rsity of pressure [facility] Heart rate 2019-11-09 18:57:00 90 /min [facility] Body temperature 2019-11-09 18:57:00 36.17 Nicole [facility] Respiratory rate 2019-11-09 18:57:00 20 /min [facility] Body height 2019-11-09 18:57:[address] [facility] Body weight 2019-11-09 18:57:00 76.2 kg Universi ty of [facility] Branch BMI 2019-11-09 18:57:00 27.96 kg/m2 [facility] Body temperature 2019-05-14 20:50:00 35.72 Nicole [facility] Body temperature 2019-05-12 18:28:00 36.22 Nicole [facility] Body weight 2019-05-12 18:28:[address] [facility] BMI 2019-05-12 18:28:00 25.84 kg/m2 [facility] Procedures Procedure Date / Time Performing Clinician Source Performed SARS-COV-2 COVID-19 2022-03-05 20:48:52 Doctor Unassigned, No [facility] [place] VACCINE Name Medical Branch BOOSTER,0.25ML,IM (MODERNA) SARS-COV-2 COVID-19 2021-10-04 22:31:03 Doctor Unassigned, No [facility] [place] VACCINE Name Medical Saline BOOSTER,0.25ML,IM (MODERNA) URINALYSIS 2021-09-16 18:12:00 Elif [facility] NOTICE OF PRIVACY 2021-09-16 17:32:53 Doctor Unassigned, No [facility] PRACTICES Name Medical Saline CONSENT/REFUSAL FOR 2021-09-16 17:32:23 Doctor Unassigned, No [facility] [place] DIAGNOSIS AND TREATMENT Name Medical Saline SCANNED LAB RESULTS 2019-11-09 06:01:00 Doctor Unassigned, No [facility] PPD (TB) 2019-05-12 19:26:19 Irma [place] madhuri [facility] PNEUMOCOCCAL VACCINE, 2019-05-12 19:26:19 Irma [place]nington [facility] 23-VALENT (PNEUMOVAX) Medical anch Encounters Start End Encounter Admission Attending Care Care Encounter Source Date/Time Date/Time Type Type Clinicians Facility Department ID 2022-02-19 Outpatient Banks, STLMLC STLMLC [id number] Common 08:38:01 Mauri [facility] 2021-11-08 Outpatient Banks, STLMLC STLMLC [id number] Common 14:35:19 Mauri [facility] 2021-11-08 Outpatient Banks, STLMLC STLMLC [id number] Common 13:45:19 Mauri [id number] [facility] 2021-11-08 Outpatient Banks, STLMLC STLMLC [id number] Common 13:43:26 Mauri 74350 [facility] 2021-11-08 Outpatient Banks, STLMLC STLMLC [id number] Common 12:53:23 Mauri [id number] [facility] 2021-11-08 Outpatient STLMLC STLMLC [id number] Common 11:35:39 [id number] [facility] 2021-11-08 Outpatient STLMLC STLMLC [id number] Common 11:32:21 [id number] [facility] 2021-11-08 Outpatient STLMLC STLMLC [id number] Common 11:28:02 [id number] [facility] 2022-03-08 2022-03-08 ambulatory STLMLC STLMLC [id number] Common 00:00:00 00:00:00 [facility] 2022-03-05 2022-03-05 Imm/Inj Vaccine, Adc Family Medicine [facility] 1.2.840.114 [id number] Univers 16:00:00 16:10:00 Visit Félix Garcia 350.1.13 .10 [facility] 4.2.7.2.686 Lang CALDWELLBETTY [phone] Oh dic[address] 2022-03-05 2022-03-05 Outpatient R [facility] [id number] Univers 16:00:00 16:00:00 [id number] [facility]-05 2022-03-05 Outpatient R JOSE [facility] [id number] Univers 16:00:00 16:00:00 FÉLIX madhuri [facility] 2022-02-18 2022-02-18 ambulatory STLMLC STLMLC [id number] Common 00:00:00 00:00:00 [facility] 2022-02-07 2022-02-07 ambulatory STLMLC STLMLC [id number] Common 00:00:00 00:00:00 [facility] 2022-02-07 2022-02-07 ambulatory STLMLC STLMLC [id number] Common 00:00:00 00:00:00 [facility] 2022-01-29 2022-01-29 ambulatory STLMLC STLMLC [id number] Common 00:00:00 00:00:00 [facility] 2022-01-29 2022-01-29 ambulatory STLMLC STLMLC [id number] Common 00:00:00 00:00:00 [facility] 2021-12-28 2021-12-28 ambulatory STLMLC STLMLC [id number] Common 00:00:00 00:00:00 [facility] 2021-10-30 2021-10-30 ambulatory STLMLC STLMLC [id number] Common 00:00:00 00:00:00 [facility] 2021-10-28 2021-10-28 ambulatory STLMLC STLMLC [id number] Common 00:00:00 00:00:00 [facility] 2021-10-04 2021-10-04 Imm/Inj Vaccine, Ang Db Cbc Fam [facility] 1. 2.840.114 [id number] Univers 16:00:00 16:28:24 Visit FerreiraRoroFiona ASYA 350.1.13.10 itMissy 4.2.7.2.686 Shine as MARIA E?BLEA [phone] [address] MEDICAL OFFICE BUILDING 2021-10-04 2021-10-04 Outpatient R [facility] [id number] Univers 16:00:00 16:00:00 [id number] ity [facility] 2021-10-04 2021-10-04 [facility] [id number] Univers 16:00:00 16:00:00 FIONA [facility] 2021-09-28 2021-09-28 ambulatory STLMLC STLMLC [id number] Common 00:00:00 00:00:00 [facility] 2021-09-16 2021-09-16 Emergency [facility] [id number] Univers 11:39:00 13:56:00 ELIF [facility] 2021-09-16 2021-09-16 Emergency [facility] 1.2.840.114 [id number] Univers 11:39:00 13:56:00 Elif SERRANO 350.1.13.10 it jean [facility] 4.2.7.2.686 [facility] [phone] [address] 2021-09-11 2021-09-11 ambulatory STLMLC STLMLC [id number] Common 00:00:00 00:00:00 [facility] 2021-09-11 2021-09-11 ambulatory STLMLC STLMLC [id number] Common 00:00:00 00:00:00 [facility] 2021-08-14 2021-08-14 ambulatory STLMLC STLMLC [id number] Common 00:00:00 00:00:00 [facility] 2021-07-26 2021-07-26 Outpatient STLMLC STLMLC [id number] Common 00:00:00 00:00:00 [facility] 2021-06-29 2021-06-29 Outpatient STLMLC STLMLC [id number] Common 00:00:00 00:00:00 [facility] 2021-06-14 2021-06-14 Outpatient STLMLC STLMLC [id number] Common 00:00:00 00:00:00 [facility] 2021-04-20 2021-04-20 Outpatient STLMLC STLMLC [id number] Common 00:00:00 00:00:00 [facility] 2021-04-12 2021-04-12 Outpatient STLMLC STLMLC [id number] Common 00:00:00 00:00:00 [facility] 2021-04-04 2021-04-04 Outpatient STLMLC STLMLC [id number] Common 00:00:00 00:00:00 [facility] 2021-04-03 2021-04-03 Outpatient STLMLC STLMLC [id number] Common 00:00:00 00:00:00 [facility] 2021-02-20 2021-02-20 Outpatient STLMLC STLMLC [id number] Common 00:00:00 00:00:00 [facility] 2021-01-30 2021-01-30 Outpatient STLMLC STLMLC [id number] Common 00:00:00 00:00:00 [facility] 2020-12-19 2020-12-19 Outpatient STLMLC STLMLC [id number] Common 00:00:00 00:00:00 [facility] 2020-11-14 2020-11-14 Outpatient Homer NASSAR [facility] [id number] Univers 14:30:00 14:30:00 PORTER [id number] [facility] 2020-11-14 2020-11-14 Outpatient Homer NASSAR [facility] [id number] Univers 14:30:00 14:30:00 PORTER [facility] 2020-10-17 2020-10-17 Outpatient Homer NASSAR [facility] [id number] Univers 14:20:00 14:20:00 [facility] [id number] 2020-10-17 2020-10-17 Outpatient Homer NASSAR [facility] [id number] Univers 14:20:00 14:20:00 PORTER [facility] 2020-10-17 2020-10-17 Outpatient Homer NASSAR [facility] [id number] Univers 14:20:00 14:20:00 PORTER [facility] 2020-07-18 2020-07-18 [facility] 1.2.840.114 [id number] [facility] 00:00:00 00:00:00 Irma A Health [id number] ity of [place] 4.2.7.2.686 Shine as Professio [phone] [address] 2020-07-18 2020-07-18 [facility] 1.2.840.114 [id number] 00:00:00 00:00:00 Irma A Health 350.1.13.10 [place] 4.2.7.2.686 Professio [phone] [place] [address] Office [facility] 2020-06-03 2020-06-03 [facility] 1.2.840.114 [id number] [facility] 00:00:00 00:00:00 Irma A Health [id number] ity of [place] 4.2.7.2.686 Shine as Professio [phone] [address] Office [facility] 2020-06-03 2020-06-03 [facility] 1.2.840.114 [id number] 00:00:00 00:00:00 Irma A Health 350.1.13.10 [place] 4.2.7.2.686 Professio [phone] [place] [address] Office Building [facility] 2020-05-24 2020-05-24 Outpatient Roxanne Boogie [id number] Common 11:00:00 11:00:00 [facility] 2020-05-17 2020-05-17 Outpatient [facility] [id number] Common 09:08:00 09:08:00 t [facility] 2020-05-02 2020-05-02 Outpatient [facility] [id number] Common 10:30:00 10:30:00 t [facility] 2020-03-03 2020-03-03 Refill [facility] 1.2.840.114 [id number] Univers 00:00:00 00:00:00 Irma A [place] 350.1.13.10 [place] [phone] [address] 2020-03-03 2020-03-03 [facility] 1.2.840.114 [id number] 00:00:00 00:00:00 Irma A [place] 350.1.13.10 [place] 4.2.7.2.686 Professio [phone] [address] 2020-03-01 2020-03-01 Telephone [facility] 1.2.840.114 [id number] [facility] 00:00:00 00:00:00 Irma A [place] 350.1.13.10 [place] [phone] [address] 2020-03-01 2020-03-01 Telephone [facility] 1.2.840.114 [id number] 00:00:00 00:00:00 Irma A [place] 350.1.13.10 [place] 4.2.7.2.686 Professio [phone] [address] 2020-02-26 2020-02-26 [facility] 1.2.840.114 [id number] Univers 00:00:00 00:00:00 Irma A [place] 350.1.13.10 [place] [phone] Oh dical [facility] 231 [facility] 2020-02-26 2020-02-26 Refill [place], [facility] 1.2.840.114 [id number] 00:00:00 00:00:00 Irma A [place] 350.1.13.10 [place] 4.2.7.2.686 Professio [phone] [address] 2019-12-26 2019-12-26 Refill [place], [facility] 1.2.840.114 [id number] [facility] 00:00:00 00:00:00 Irma A [place] 350.1.13.10 [place].2.[place] [phone] Oh dic[address] 2019-12-26 2019-12-26 Refill [place], [facility] 1.2.840.114 [id number] 00:00:00 00:00:00 Irma A [place] 350.1.13.10 [place] 4.2.7.2.686 Professio [phone] [address] 2019-12-08 2019-12-08 Telephone Dex Fair [facility] 1.2.840.114 [id number] [facility] 00:00:00 00:00:00 W SPECIALTY 350.1.13.10 [place]2.[place] [phone] [address] 2019-12-08 2019-12-08 Telephone Dex Fair [facility] 1.2.840.114 [id number] 00:00:00 00:00:00 W SPECIALTY 350.1.13.10 [place] 4.2.7.2.686 [place] [phone] [facility] 2019-12-01 2019-12-01 Telephone Jessica [facility] [id number] [id number] Univers 00:00:00 00:00:00 Rosario SPECIALTY 350.1.13.10 [place] [phone] [address] 2019-12-01 2019-12-01 Refill Aditi [facility] 1.2.840.114 [id number] Univers 00:00:00 00:00:00 Irma A [place] 350.1.13.10 [place].2.[place] [phone] [address] 2019-12-01 2019-12-01 Telephone [facility] 1.2.818.637 [id number] 00:00:00 00:00:00 Rosario SPECIALTY 350.1.13.10 [place] 4.2.7.2.686 [place] [phone] [facility] 2019-12-01 2019-12-01 [facility] 1.2.840.114 [id number] 00:00:00 00:00:00 Irmajeimy Serrano 350.1.13.10 [place] 4.2.7.2.686 Professio [phone] [address] 2019-11-26 2019-11-26 Refill [facility] 1.2.840.114 [id number] [facility] 00:00:00 00:00:00 Irma Serrano 350.1.13.10 [place] of [place].2.[place] [phone] [address] 2019-11-09 2019-11-09 Office Rosario Lopez [facility] 1.2.840. 114 [id number] [facility] 12:48:32 13:48:32 Visit Dex Fair SPECIALTY 350.1.13.10 ity of [place] 4[place].2.[place] [phone] [address] 2019-11-09 2019-11-09 Office Sherryradha [facility] 1.2.840.114 [id number] 12:48:32 13:48:32 Visit Rosario SPECIALTY 350.1.13.10 [place] 4.2.7.2.686 [place] [phone] [facility] 2019-11-09 2019-11-09 Orders Doctor AUBRIE 1.2.840.114 [id number] Univers 00:00:00 00:00:00 Only Unassigned, [place] 350.1.13.10 ity of [place] [facility] 4.2.7.2.686 Shine as [phone] [facility] 009 Saline 2019-11-09 2019-11-09 Orders Doctor AUBRIE 1.2.840.114 [id number] 00:00:00 00:00:00 Only Unassigned, [place] 350.1.13.10 [place] [facility] 4.2.7.2.686 [id number] 009 2019-05-14 2019-05-14 Nurse Nurse, [facility] 1.2.840.114 [id number] [facility] 15:28:41 15:43:41 Visit Irma [place] 350.1. 13.10 it[place] of [place]2.[place].2.[place] [phone] [facility] 044 [facility] 2019-05-14 2019-05-14 Letter Aditi [facility] 1.2.840.114 [id number] Univers 00:00:00 00:00:00 (Out) Irma Serrano 350.1.13.10 [place] [phone] [facility] 231 [facility] 2019-05-12 2019-05-12 Nurse Nurse, [facility] 1.2.840.114 [id number] [facility] 13:01:21 15:09:23 Visit Irma [place] 350.1. 13.10 [place]2.[place].2.[place] [phone] [facility] 044 [facility] 2019-03-26 2019-03-26 Outpatient [facility] [id number] Common 08:00:00 08:00:00 t [facility] Bone and Spiri t [facility] 2019-01-12 2019-01-12 Outpatient [facility] [id number] Common 11:00:00 11:00:00 t Bone Bone and Spiri t [facility] - [facility] Results Test Description Test Time Test Comments Results Result Comments Source HEMOGLOBIN A1C 2017-05-16 21:48:00 Test Item Value Reference Range Interpretation Comme nts HEMOGLOBIN A1C (BEAKER) (test code = 368) 6.2 % 4.3-6.1 H [id number] 07:10:00 Test Item Value Reference Range Interpretation Comments MAGNESIUM (BEAKER) (test code = 1.9 mg/dL 1.6-2.6 627) BASIC METABOLIC [id number] 07:10:00 Test Item Value Reference Range Interpretation [...] WBC 0-0 (BEAKER) (test code = 413) [id number] 05:45:00 Test Item Value Reference Range Interpretation Comments MAGNESIUM (BEAKER) 2.3 mg/dL 1.6-2.6 Specimen moderately (test code = 627) hemolyzed COMPREHENSIVE METABOLIC [id number] 05:45:00 Test Item Value Reference Range Interpretation [...] S NOT APPLICABLE FOR DIALYSIS PATIEN TS. [id number] 11:50:00 Test Item Value Reference Range Interpretation Comments RPR SCREEN (BEAKER) (test code = Nonreactive Nonreactive 420) BASIC METABOLIC [id number] 06:28:00 Test Item Value Reference Range Interpretation [...] NOT APPLICABLE FOR DIALYSIS PATIEN TS. FastingLIPID [id number] 06:28:00 Test Item Value Reference Range Interpretation [...] 160-189 Very High >=190 FastingVITAMIN B12 AND [id number] 04:10:00 Test Item Value Reference Range Interpretation Comments VITAMIN B12 (BEAKER) (test code = 514 pg/mL 213-816 774) FOLATE (BEAKER) (test code = 362) > ng/mL >=7.0 Effective 08/31/2014: Folate Reference Range ChangeNew: >=7.0 Previous: >=5.4TSH/FREE T4 IF [id number] 02:52:00 Test Item Value Reference Range Interpretation Comments THYROID STIMULATING HORMONE 2.55 uIU/mL 0.35-4.94 (BEAKER) (test code = 772) SEDIMENTATION [id number] 01:10:00 Test Item Value Reference Range Interpretation Comments SEDIMENTATION RATE, ERYTHROCYTE 6 mm/HR 0-40 (BEAKER) (test code = 766) [id number] 00:35:00 Test Item Value Reference Range Interpretation Comments HOMOCYSTEINE (BEAKER) (test code = 8.5 umol/L 5.1-15.4 642) URINALYSIS W/ [id number] 00:30:00 Test Item Value Reference Range Interpretation [...] 516) SOURCE(BEAKER) (test code = Urine, Voided 0785) TROPONIN [id number] 00:23:00 Test Item Value Reference Range Interpretation [...] acute neurological disease, and persistent tachyarrhythmia.HEPATIC FUNCTION [id number] 00:17:00 Test Item Value Reference Range Interpretation [...] = 31 U/L 6-55 347) BASIC METABOLIC [id number] 00:17:00 Test Item Value Reference Range Interpretation [...] GFR I S NOT APPLICABLE FOR DIALYSIS YO TS. C-REACTIVE [id number] 00:17:00 Test Item Value Reference Range Interpretation Comments C-REACTIVE PROTEIN (BEAKER) (test 0.55 mg/dL 0.00-0.50 H code = 676) PROTHROMBIN [id number] 00:07:00 Test Item Value Reference Range Interpretation [...]
[2022-05-03] MEDS ORDERED: FLEET ENEMA ADULT PR ONE (17:18)
[2022-05-03] MEDS: ATORVASTATIN 20 MG TAB PO SCH (20:42)
--- NOTE | 2022-05-04 05:56 | PN ---
Date of Progress Note: 05/03/2022 Subjective: Ms. Bauer was admitted with cellulitis, has a history of atrial fibrillation, hypertensi on, TIA, and congestive heart failure. When she came in, her atrial fibrillation rate was in the 140 s. Dr. Banks and I decided to switch her from metoprolol to amiodarone. She remains in atrial fibril lation today with a heart rate of 86, O2 saturation of 95%, cellulitis that improved. Arterial Doppl er results were negative. I would continue her present regimen. Case was discussed with Dr. Banks. I will follow her as needed. The amiodarone dose need to be cut down to 200 mg daily after 1 week of 400 b.i.d.. RASHIDA/LAWANDA Voice ID: [id number] Report ID: [id number]
--- NOTE | 2022-05-04 06:10 | PN ---
Date of Progress Note: 05/03/2022 The patient was seen this morning for followup. No new complaints or problems reported by her except she has lot of pain in her feet especially worse at nighttime and she is requesting us to give highe r dose of gabapentin. Yesterday because of her pain in the feet during daytime also she was not able to do much therapy as she reports. She still has significant generalized weakness. Objective: VITAL SIGNS: Reviewed. HEENT: Unremarkable. LUNGS: Clear to auscultation. HEART: Sounds normal. ABDOMEN: Soft. Bowel sounds normal. No guarding, rigidity, tenderness, distention. EXTREMITIES: No leg edema. Distal 1/3 on both feet, skin redness is still present, but better than yesterday. Impression: 1.Cellulitis, bilateral feet. 2.Peripheral vascular disease. 3.Type 2 diabetes mellitus. 4.Chronic atrial fibrillation. 5.Hypertension. 6.Peripheral neuropathy. Plan: We will go ahead and increase the dose of gabapentin and continue 300 mg in the morning, but n ight time dose, we will increase it to 600 mg. We will continue current antibiotics. So far, cultur es are negative. Continue to follow up with salvage engineer and the patient's peripheral vascular study shows bilateral peripheral arterial disease and medical management is recommended. I did discuss wi th Dr. Rey regarding this and he agrees with that as well. Continue current anticoagulation ther apy and physical therapy to continue to work with her. I have discussed with her that within next 1 or 2 days, she might be ready for discharge and if she is not able to go back to [facility], she wi ll have to go to half-way facility for short-term stay, so we will see how she does in next day or 2 days. HITESH/MODL Voice ID: [id number] Report ID: [id number]
[2022-05-04] MEDS: INSULIN -REGULAR HUMAN 50 UNIT/0.5 ML ML SQ SCH ×4 (07:30→20:31)
[2022-05-04] MEDS: CEFTRIAXONE 1,000 MG in NA CHLORIDE 0.9% 50 ML IVPB SCH ×2 (10:22→20:37)
[2022-05-04] MEDS: POLYETHYL GLY 3350 17 GM/DOSE PO SCH (10:22)
[2022-05-04] MEDS: ASPIRIN EC 81 MG TAB PO SCH (10:23)
[2022-05-04] MEDS: DULOXETINE 20 MG CAP PO SCH (10:23)
[2022-05-04] MEDS: AMIODARONE HCL 200 MG TAB PO SCH ×2 (10:23→20:30)
[2022-05-04] MEDS: FUROSEMIDE 40 MG TABLET PO SCH ×2 (10:23→18:06)
[2022-05-04] MEDS: GABAPENTIN 300 MG CAP PO SCH ×2 (10:24→20:30)
[2022-05-04] MEDS: COLLAGENASE 30 GM OINTMENT TOP SCH (10:24)
[2022-05-04] MEDS: RIVAROXABAN 15 MG TABLET PO SCH (10:27)
[2022-05-04] MEDS: METOPROLOL TAR 50 MG TAB PO SCH ×2 (10:27→20:30)
[2022-05-04 11:45] LABS: Specific Gravity 1.015 (1.005-1.030); Urine Bilirubin NEGATIVE (Negative); Urine Blood Negative (Negative); Urine Clarity Clear (Clear); Urine Color Yellow (Yellow); Urine Glucose NEGATIVE (Negative)
[2022-05-04 11:46] LABS: Urine Protein NEGATIVE (Negative); Urine Urobilinogen 0.2 mg/dL (0.2-1.0)
[2022-05-04 11:48] LABS: Urine Bacteria None Seen /HPF (<20); Urine RBC <5 /HPF (None Seen)
[2022-05-04] MEDS: ATORVASTATIN 20 MG TAB PO SCH (20:30)
--- NOTE | 2022-05-04 23:26 | PN ---
Date of Progress Note: 05/04/2022 Subjective: The patient was seen this morning for followup. She was lying in bed, not in distress. Yesterday, she was not able to do much with physical therapy. She was able to get up and take a cou ple of steps in the room, but not able to ambulate. Objective: Vital Signs: Reviewed. HEENT: Unremarkable. Lungs: Clear to auscultation. Heart: Heart sounds normal. Abdomen: Soft, bowel sounds normal. No guarding, rigidity, tenderness, or distention. Extremities: No leg edema. Her bilateral feet examination shows significant improvement in redness from distal 1/3 of both feet. Left foot is almost back to normal and the right foot is significantly improved, I would say at least 80% to 90% better compared to before. Impression: 1.Cellulitis, bilateral feet. 2.Peripheral vascular disease. 3.Type 2 diabetes mellitus. 4.Hypertension. 5.Chronic atrial fibrillation. 6.Generalized weakness. 7.Debility. Plan: We will go ahead and continue current antibiotics, continue physical therapy to help ambulate the patient. We will go ahead and continue amiodarone and metoprolol, which was started yesterday fo r rate control as the patient still had atrial fibrillation with rapid ventricular rate with heart ra te around 130-140 per minute. Today, her heart rate is much better controlled with metoprolol. The patient will not be able to go back to [facility] considering she is not able to ambulate, so she i s agreeable to go to jail facility and Social Service was consulted to assist with the placement. HITESH/MODL Voice ID: [id number] Report ID: [id number]
[2022-05-05] MEDS: INSULIN -REGULAR HUMAN 50 UNIT/0.5 ML ML SQ SCH ×4 (07:30→20:42)
[2022-05-05] MEDS: GABAPENTIN 300 MG CAP PO SCH ×2 (09:00→21:23)
[2022-05-05] MEDS ORDERED: MAGNESIUM HYDROXIDE 8% 30 ML PO ONE (09:59)
[2022-05-05] MEDS: CEFTRIAXONE 1,000 MG in NA CHLORIDE 0.9% 50 ML IVPB SCH ×2 (10:03→21:23)
[2022-05-05] MEDS: COLLAGENASE 30 GM OINTMENT TOP SCH (10:03)
[2022-05-05] MEDS: AMIODARONE HCL 200 MG TAB PO SCH ×2 (10:04→21:23)
[2022-05-05] MEDS: FUROSEMIDE 40 MG TABLET PO SCH ×2 (10:05→16:54)
[2022-05-05] MEDS: ASPIRIN EC 81 MG TAB PO SCH (10:05)
[2022-05-05] MEDS: RIVAROXABAN 15 MG TABLET PO SCH (10:05)
[2022-05-05] MEDS: POLYETHYL GLY 3350 17 GM/DOSE PO SCH (10:05)
[2022-05-05] MEDS: DULOXETINE 20 MG CAP PO SCH (10:06)
[2022-05-05] MEDS: METOPROLOL TAR 50 MG TAB PO SCH ×2 (10:06→21:22)
[2022-05-05] MEDS: DOXYCYCLINE 100 MG CAP PO SCH ×2 (10:09→21:22)
--- NOTE | 2022-05-05 12:56 | PN ---
Date of Progress Note: 05/05/2022 Subjective: The patient was seen this morning for followup, and she was complaining of constipation problem. She took 1 dose of MiraLAX yesterday and today and so far she has not had a bowel movement. No nausea, no vomiting. The patient also reports that pain in her feet is not well controlled during day time, but at nighttime, it is well controlled as she takes higher dose of gabapentin at night time. Yesterday, she was able to ambulate better than previous day. Objective: Vital Signs: Reviewed. HEENT: Unremarkable. Lungs: Clear to auscultation. Heart: Heart sounds normal. Abdomen: Soft. Bowel sounds normal. No guarding, rigidity, tenderness, or distention. Extremities: No leg edema. Skin: Bilateral feet has dusky discoloration of the skin on the dorsum feet and plantar aspect of feet, and this was noted while she was sitting upright with her feet on the ground. Most of the redness from the distal 1/3rd of the feet has significantly improved. Labs: Initial urinalysis when she first came into hospital on May 01, 2022, was normal and urine culture that was collected at the same time started to grow MRSA as of yesterday. When nurse contacted me with this information, I suggested to get another urine specimen using straight cath, and that urinalysis has shown trace leukocyte esterase, otherwise it is normal and urine culture from yesterday is pending. Impression: 1. Cellulitis, bilateral feet. 2. Peripheral vascular disease. 3. Atrial fibrillation, chronic. 4. Hypertension. 5. Type 2 diabetes mellitus. Plan: We will go ahead and continue current antibiotic, which is ceftriaxone. We will wait for the repeat urine culture result and meanwhile we will have Physical Therapy continue to work with the patient. Continue current antibiotic and we will add doxycycline 100 mg by mouth 2 times a day and at time of discharge, to continue oral doxycycline and to discontinue IV ceftriaxone. As of yesterday, Social Service has initiated assisted facility placement and we are waiting on insurance [employer]'s approval. Her pulse rate is under better control. This morning, heart rate was 92, blood pressure 123/77, and she has remained afebrile. We will add milk of magnesia 30 ml x one dose today and Senokot-S 2 tablets 2 times a day for constipation problem. I also increased the dose of gabapentin to 600 mg 2 times a day. HITESH/MODL Voice ID: [id number] Report ID: [id number] MTDD
[2022-05-05] MEDS: DOCUSATE NA/SENNA CONC 1 TAB PO SCH (21:22)
[2022-05-05] MEDS: ATORVASTATIN 20 MG TAB PO SCH (21:23)
[2022-05-06] MEDS: ACETAMINOPHEN 500 MG TAB PO PRN ×2 (00:32→23:04)
[2022-05-06 06:57] LABS: Absolute Lymphocytes (CBC) 1.1 K/uL (0.7-4.9); Hematocrit 38.5 % (36.0-45.0); Lymphocytes % 15.8 % (15.3-44.8); MCV 94.8 fL (80-100); MPV 8.3 fL (7.6-11.3); RBC Red Blood Cell Count 4.06 M/uL (3.86-4.86)
[2022-05-06 07:17] LABS: Albumin 2.4 g/dL (3.4-5.0); Bilirubin Total 0.5 mg/dL (0.2-1.0); Magnesium 2.1 mg/dL (1.8-2.4); Protein, Total 5.8 g/dL (6.4-8.2)
[2022-05-06 07:18] LABS: Potassium 2.9 mmol/L (3.5-5.1)
[2022-05-06] MEDS: INSULIN -REGULAR HUMAN 50 UNIT/0.5 ML ML SQ SCH ×4 (07:30→20:53)
[2022-05-06] MEDS: COLLAGENASE 30 GM OINTMENT TOP SCH (09:00)
[2022-05-06] MEDS: GABAPENTIN 300 MG CAP PO SCH ×2 (10:09→20:51)
[2022-05-06] MEDS: METOPROLOL TAR 50 MG TAB PO SCH ×2 (10:09→20:52)
[2022-05-06] MEDS: AMIODARONE HCL 200 MG TAB PO SCH ×2 (10:09→20:51)
[2022-05-06] MEDS: DULOXETINE 20 MG CAP PO SCH (10:09)
[2022-05-06] MEDS: DOXYCYCLINE 100 MG CAP PO SCH ×2 (10:09→20:51)
[2022-05-06] MEDS: DOCUSATE NA/SENNA CONC 1 TAB PO SCH ×2 (10:09→20:51)
[2022-05-06] MEDS: CEFTRIAXONE 1,000 MG in NA CHLORIDE 0.9% 50 ML IVPB SCH ×2 (10:10→20:50)
[2022-05-06] MEDS: ASPIRIN EC 81 MG TAB PO SCH (10:10)
[2022-05-06] MEDS: KCL 20 MEQ/100 mL IVPB 20 MEQ/100 ML BAG IV SCH ×3 (10:10→15:39)
[2022-05-06] MEDS: FUROSEMIDE 40 MG TABLET PO SCH ×2 (10:10→17:31)
[2022-05-06] MEDS: POLYETHYL GLY 3350 17 GM/DOSE PO SCH (10:11)
[2022-05-06] MEDS: RIVAROXABAN 15 MG TABLET PO SCH (10:17)
[2022-05-06] MEDS: POTASSIUM CL SA 10 MEQ TAB PO SCH ×2 (13:21→20:51)
[2022-05-06] MEDS ORDERED: METOLAZONE 2.5 MG TABLET PO ONE (15:00)
--- NOTE | 2022-05-06 20:44 | PN ---
Date of Progress Note: 05/06/2022 Subjective: The patient was seen this morning for followup. No new complaints or problems reported by her. She was lying in bed, not in distress. She did ambulate better with physical therapy yester day. Vital signs reviewed and she did have bowel movement yesterday after laxative. Physical Examination: HEENT: Unremarkable. Lungs: Bilateral basal rales present. Heart: Sounds normal. Abdomen: Soft. Bowel sounds normal. No guarding, rigidity, tenderness, distention. Extremities: No leg edema and her redness from both dorsal distal one-third feet has resolved. Laboratory Data: White count 6.6, hemoglobin 13.1, platelets 215. Sodium 133, potassium 2.9, chlori de 94, bicarb 31, BUN 33, creatinine 0.79, glucose 143. Impression: 1.Cellulitis, bilateral feet. 2.Hypokalemia. 3.Chronic atrial fibrillation. 4.Hypertension. 5.Type 2 diabetes mellitus. 6.Generalized weakness. 7.Debility. Plan: We will go ahead and continue current antibiotics. Original blood culture is negative. Repea t urine culture is negative so far. We will continue current antibiotic for cellulitis. Physical Th erapy to continue to work with the patient. Continue current anticoagulation therapy, metoprolol and amiodarone for her atrial fibrillation problem. I will see her tomorrow for followup. The patient would like to go to a senior care facility for a short time and if insurance denies such request, then she will go back to [facility] and her family will arrange for 24-hour care to start with until her condition improves and home health care and home physical therapy. HITESH/MODL Voice ID: [id number] Report ID: [id number]
[2022-05-06] MEDS: ATORVASTATIN 20 MG TAB PO SCH (20:51)
[2022-05-07 04:48] LABS: Potassium 3.7 mmol/L (3.5-5.1)
[2022-05-07] MEDS ORDERED: POTASSIUM 25 MEQ EFFERV TAB PO ONE (07:00)
[2022-05-07] MEDS: INSULIN -REGULAR HUMAN 50 UNIT/0.5 ML ML SQ SCH ×4 (07:30→21:00)
[2022-05-07] MEDS: POLYETHYL GLY 3350 17 GM/DOSE PO SCH ×2 (08:55→08:56)
[2022-05-07] MEDS: METOPROLOL TAR 50 MG TAB PO SCH ×2 (08:55→21:25)
[2022-05-07] MEDS: CEFTRIAXONE 1,000 MG in NA CHLORIDE 0.9% 50 ML IVPB SCH ×2 (08:56→20:28)
[2022-05-07] MEDS: RIVAROXABAN 15 MG TABLET PO SCH (08:56)
[2022-05-07] MEDS: POTASSIUM CL SA 10 MEQ TAB PO SCH ×3 (08:57→21:24)
[2022-05-07] MEDS: GABAPENTIN 300 MG CAP PO SCH ×2 (08:58→21:24)
[2022-05-07] MEDS: ASPIRIN EC 81 MG TAB PO SCH (08:58)
[2022-05-07] MEDS: DULOXETINE 20 MG CAP PO SCH (08:58)
[2022-05-07] MEDS: DOCUSATE NA/SENNA CONC 1 TAB PO SCH ×2 (08:59→21:24)
[2022-05-07] MEDS: AMIODARONE HCL 200 MG TAB PO SCH ×2 (08:59→21:24)
[2022-05-07] MEDS: COLLAGENASE 30 GM OINTMENT TOP SCH (09:00)
[2022-05-07] MEDS: FUROSEMIDE 40 MG TABLET PO SCH ×2 (09:00→17:25)
[2022-05-07] MEDS: DOXYCYCLINE 100 MG CAP PO SCH ×2 (09:00→21:24)
[2022-05-07] MEDS ORDERED: D10W 125 ML IV PRN (10:08)
[2022-05-07] MEDS ORDERED: CEFTRIAXONE 1000 MG/VIAL ONE (20:22)
[2022-05-07] MEDS ORDERED: NA CHLORIDE 0.9% 50 ML ONE (20:25)
[2022-05-07] MEDS: ATORVASTATIN 20 MG TAB PO SCH (21:24)
[2022-05-07] MEDS: ACETAMINOPHEN 500 MG TAB PO PRN (22:00)
--- NOTE | 2022-05-08 01:38 | PN ---
Date of Progress Note: 05/07/2022 Subjective: The patient was seen this morning for followup. No new complaints or problems reported by her. She was lying in bed, not in distress. Objective: Vital Signs: Reviewed. HEENT: Unremarkable. Lungs: Clear to auscultation. Heart: Sounds normal. Abdomen: Soft. Bowel sounds normal. No guarding, rigidity, tenderness, or distention. Extremities: No leg edema. Area of cellulitis from both dorsal feet has resolved. Laboratory Data: Sodium 134, potassium 3.7, chloride 94, bicarb 34, BUN 38, creatinine 0.94, glucose 144. Impression: 1.Cellulitis, bilateral feet. 2.Peripheral vascular disease. 3.Type 2 diabetes mellitus. 4.Chronic atrial fibrillation. 5.Hypertension. Plan: We will continue current medications. Continue current antibiotics. So far repeat urine cult ure is negative. Blood cultures negative. Physical therapy to continue to work with the patient. S ocial Service is working with insurance company to get approval for correction facility [facility]. We will see her tomorrow for followup. HITESH/MODL Voice ID: [id number] Report ID: [id number]
[2022-05-08 04:42] LABS: Potassium 3.3 mmol/L (3.5-5.1)
[2022-05-08] MEDS ORDERED: POTASSIUM 25 MEQ EFFERV TAB PO ONE (05:02)
[2022-05-08] MEDS: INSULIN -REGULAR HUMAN 50 UNIT/0.5 ML ML SQ SCH ×4 (07:30→21:00)
[2022-05-08] MEDS: GABAPENTIN 300 MG CAP PO SCH ×2 (08:38→21:51)
[2022-05-08] MEDS: POLYETHYL GLY 3350 17 GM/DOSE PO SCH (08:38)
[2022-05-08] MEDS: ASPIRIN EC 81 MG TAB PO SCH (08:39)
[2022-05-08] MEDS: POTASSIUM CL SA 10 MEQ TAB PO SCH ×3 (08:39→21:51)
[2022-05-08] MEDS: RIVAROXABAN 15 MG TABLET PO SCH (08:39)
[2022-05-08] MEDS: DOCUSATE NA/SENNA CONC 1 TAB PO SCH ×2 (08:39→21:00)
[2022-05-08] MEDS: DOXYCYCLINE 100 MG CAP PO SCH ×2 (08:39→21:52)
[2022-05-08] MEDS: METOPROLOL TAR 50 MG TAB PO SCH ×2 (08:41→21:52)
[2022-05-08] MEDS: FUROSEMIDE 40 MG TABLET PO SCH ×2 (08:42→17:12)
[2022-05-08] MEDS: AMIODARONE HCL 200 MG TAB PO SCH (08:50)
[2022-05-08] MEDS: DULOXETINE 20 MG CAP PO SCH (08:50)
[2022-05-08] MEDS: COLLAGENASE 30 GM OINTMENT TOP SCH (08:53)
[2022-05-08] MEDS: ATORVASTATIN 20 MG TAB PO SCH (21:51)
[2022-05-08] MEDS: ACETAMINOPHEN 500 MG TAB PO PRN (21:58)
[2022-05-09 06:26] LABS: Potassium 4.1 mmol/L (3.5-5.1)
[2022-05-09] MEDS: INSULIN -REGULAR HUMAN 50 UNIT/0.5 ML ML SQ SCH (07:30)
[2022-05-09] MEDS ORDERED: LIDOCAINE 1% 20 ML MDV ONE (07:55)
--- NOTE | 2022-05-09 08:03 | PN ---
Date of Progress Note: 05/08/2022 Subjective: The patient was seen this morning for followup. No new complaints or problems reported by her. She is participating well with physical therapy. Objective: Vital Signs: Reviewed. HEENT: Unremarkable. Lungs: Clear to auscultation. Heart: Sounds normal. Abdomen: Soft. Bowel sounds normal. No guarding, rigidity, tenderness, or distention. Extremities: No leg edema. Laboratory Data: Sodium 132, potassium 3.3, chloride 95, bicarb 30, BUN 43, creatinine 1.11, glucose 154. Impression: 1.Cellulitis, bilateral legs. 2.Peripheral vascular disease. 3.Type 2 diabetes mellitus. 4.Hypertension. 5.Chronic atrial fibrillation. Plan: We will go ahead and continue current oral antibiotic, which is doxycycline. We will stop her IV ceftriaxone as she no longer needs that. Continue anticoagulation therapy. Continue current diu retic therapy. Hypokalemia will be corrected per order and I will see her tomorrow for followup. I was notified during the course of day today that the patient's insurance company has approved her to go to [facility] facility and she will be discharged tomorrow to go to this facility. HITESH/MODL Voice ID: [id number] Report ID: [id number]
[2022-05-09 08:29] VITALS: O2SAT 96
[2022-05-09 08:52] VITALS: BP 134/68; TEMP 97.9
[2022-05-09] MEDS: POLYETHYL GLY 3350 17 GM/DOSE PO SCH (09:00)
[2022-05-09] MEDS: DOXYCYCLINE 100 MG CAP PO SCH (09:04)
[2022-05-09] MEDS: GABAPENTIN 300 MG CAP PO SCH (09:04)
[2022-05-09] MEDS: POTASSIUM CL SA 10 MEQ TAB PO SCH (09:04)
[2022-05-09] MEDS: METOPROLOL TAR 50 MG TAB PO SCH (09:04)
[2022-05-09] MEDS: ASPIRIN EC 81 MG TAB PO SCH (09:04)
[2022-05-09] MEDS: DOCUSATE NA/SENNA CONC 1 TAB PO SCH (09:05)
[2022-05-09] MEDS: RIVAROXABAN 15 MG TABLET PO SCH (09:05)
[2022-05-09] MEDS: FUROSEMIDE 40 MG TABLET PO SCH (09:05)
[2022-05-09] MEDS: DULOXETINE 20 MG CAP PO SCH (09:05)
[2022-05-09] MEDS: AMIODARONE HCL 200 MG TAB PO SCH (09:05)
[2022-05-09] MEDS: COLLAGENASE 30 GM OINTMENT TOP SCH (09:09)
--- NOTE | 2022-05-09 09:38 | P.PN ---
Date of Service: 05/09/22 Subjective: Dr. Banks asked me to evaluate patient's right index finger for paronychia. Patient denies any pain, fever, discharge or tenderness. Objective: Vital signs stable, afebrile Right index finger: There is minimal erythema at the base of the nail with a 2 mm area of white material. There is another area with white material about 1 cm approximately. There is no surrounding warmth or tenderness. Assessment: Right index finger infection etiology unclear but bacterial infection and gout are possible. Plan: We will perform incision and drainage at the bedside. Patient understands risk benefits alternatives and agrees to procedure. Patient can be discharged back to the halfway with Neosporin for wound care. Patient can follow-up with me in the wound healing center in 1 to 2 weeks. Procedure note: Patient prepped and draped in the usual sterile fashion. 18- gauge needle used to unroofed the 2 white areas. Chalky material was evacuated and cultures were done. There was minimal bleeding noted. Neosporin and Band- Aid was applied to the wound. CC: Dr. Banks's office
--- NOTE | 2022-05-10 19:55 | DS ---
Date of Discharge: 05/09/2022 Disposition: The patient was discharged to go to assisted facility. Physical Examination: HEENT: Unremarkable. Lungs: Clear to auscultation. Heart: Sounds normal. Abdomen: Soft. Bowel sounds normal. No guarding, rigidity, tenderness, distention. Extremities: No leg edema. Hospital Course: This is an 81-year-old pleasant female patient, admitted to the hospital with cellulitis of both lower extremities. Please see dictated H and P for more information. The patient had cellulitis of both distal 1/3 of both feet and she was started on antibiotics for this. The patient also was diagnosed as having peripheral vascular disease. Arterial Doppler of lower extremity was done and results reviewed with the patient. Conservative medical management will be provided for this. Cardiology consultation was requested for atrial fibrillation and peripheral vascular disease and Dr. Rodriguez who sees her on outpatient [facility] was also consulted for management of the right great toe wound. Overall, her cellulitis improved significantly with antibiotic provided during this hospitalization. Physical Therapy was consulted. The patient had significant generalized weakness and debility and she started to participate well with the Physical Therapy. She lives at [facility] and she is not able to go back to this facility right now because of her generalized weakness and debility problem, so Social Service was consulted to make arrangements for the patient to go to assisted facility on a temporary basis. The patient had hypoglycemia when she was admitted to the hospital overnight with blood sugar running into the range of 30-40, which was corrected. Hemoglobin A1c done during this hospitalization was 6.2. We have decided to discontinue her glipizide. For her atrial fibrillation which is chronic, she has rapid ventricular rate and in spite of metoprolol, it was not well controlled so after talking to Dr. Rey, we started her on amiodarone and she has received 400 mg 2 times a day for 1 week and now we will continue 200 mg daily dose. Initially when we started amiodarone, metoprolol was discontinued, but she still had some atrial fibrillation with rapid ventricular rate, so a lower dose of metoprolol was started with this combination of metoprolol and amiodarone. Her heart rate is very well controlled. Today, the patient was discharged to go to assisted facility in stable condition with following discharge medications and instructions. Discharge Medications And Instructions: 1. Continue all prior home medications except stop glipizide. 2. Increase gabapentin dose 300 mg, the patient to take 2 capsules by mouth 2 times a day. 3. Reduce metoprolol dose to 50 mg 2 times a day. 4. Give doxycycline 100 mg 2 times a day for 1 week. 5. Give amiodarone 200 mg daily. 6. Consult Physical Therapy, Occupational Therapy. 7. The patient to follow up at my office within 2 to 3 days after getting discharged from assisted facility. Final Diagnoses: 1. Cellulitis, bilateral feet. 2. Toxic encephalopathy. 3. Chronic kidney disease stage IIIa. 4. Atrial fibrillation, chronic. 5. Type 2 diabetes mellitus. 6. Hypertension. 7. Hyperlipidemia, mixed. 8. Chronic diastolic heart failure. 9. Allergic rhinitis. 10. Anxiety. 11. Depression. 12. Diverticulosis. 13. Colon cancer, hepatic flexure. 14. Osteoarthritis, multiple sites. 15. Peripheral vascular disease. 16. Debility. 17. Generalized weakness. HITESH/MODL Voice ID: [id number] Report ID: [id number] [facility]ENTER[facility]
== END 2022-05-09 11:39 | DRG 602 ==
LOC: ER 16:24 → ERHOLD 17:56 → 4TH 19:59 → ERHOLD 19:59 → 2ND 19:59 → UNDODISIN 05-09 11:39
PROVIDERS: ADMIT Internal Medicine; ATTEND Internal Medicine
PROC: 0H9FXZZ Drainage of Right Hand Skin, External Approach (ICD-10-PCS; principal; 2022-05-09)
DX: L03.116 Cellulitis of left lower limb (principal); G92.9 Unspecified toxic encephalopathy; I50.32 Chronic diastolic (congestive) heart failure; I13.0 Hypertensive heart and chronic kidney disease with heart failure and stage 1 through stage 4 chronic kidney disease, or unspecified chronic kidney disease; L03.115 Cellulitis of right lower limb; I73.9 Peripheral vascular disease, unspecified; R53.81 Other malaise; E87.6 Hypokalemia; E11.42 Type 2 diabetes mellitus with diabetic polyneuropathy; E11.22 Type 2 diabetes mellitus with diabetic chronic kidney disease; N18.30 Chronic kidney disease, stage 3 unspecified; E78.2 Mixed hyperlipidemia; J30.9 Allergic rhinitis, unspecified; F41.9 Anxiety disorder, unspecified; F32.A Depression, unspecified; K57.90 Diverticulosis of intestine, part unspecified, without perforation or abscess without bleeding; L03.011 Cellulitis of right finger; I48.0 Paroxysmal atrial fibrillation; M15.9 Polyosteoarthritis, unspecified; Z85.038 Personal history of other malignant neoplasm of large intestine; Z87.440 Personal history of urinary (tract) infections; Z90.49 Acquired absence of other specified parts of digestive tract; Z20.822 Contact with and (suspected) exposure to COVID-19
CPT/HCPCS: 11042; 36415; 71045; 80048; 80053; 81001; 81003; 82947; 83036; 83605; 83735; 84132; 85025; 85610; 85730; 87040; 87070; 87077; 87086; 87088; 87186; 87205; 87811; 93005; 93925; 96374; 97110; 97116; 97161; 97530; 99285; J1160; J1815; J3480; J3590; U0003

== ENCOUNTER 2022-05-26 04:13 | Emergency (ER) | payer OTHER ==
--- OUTSIDE RECORDS SUMMARY | 2022-05-26 04:41 | XMS REPORT | Continuity of Care Document ---
:1940 Author Organization [facility] t Address [address] [place] [address] Care Team Providers Name Role Phone Mauri Banks MD Primary Care Physician Mauri Banks Attending Clinician Unavailable Vaccine, [facility] Family [facility] Attending Clinician Unavailable Félix Garcia DO Attending Clinician FÉLIX GARCIA Attending Clinician Unavailable Vaccine, Ang Db Cbc Fam Attending Clinician Unavailable Fiona Ferreira MD Attending Clinician FIONA FERREIRA Attending Clinician Unavailable ELIF ANDINO Attending Clinician Unavailable Elif Andino DO Attending Clinician PORTER NASSAR Attending Clinician Unavailable Irma Pennington MD Attending Clinician [phone] Dex Forrest MD Attending Clinician Rosario Lopez Attending Clinician Unavailable Doctor Unassigned, [place] Attending Clinician Unavailable Nurse, Adc Fam Attending Clinician Unavailable RADHA, UMAR Attending Clinician Unavailable RADHA, UMAR Admitting Clinician Unavailable Payers Payer Name Policy Type Policy Number Effective Date Expiration Date Jamshid DIETRICH MANAGED [id number] 2020 MEDICARE PPO-RENEE 00:00:00 Problems Condition Condition Condition Status Onset Resolution Last Treating Co mments Source Name Details Category Date Date Treatment Clinician Date Cerebrovas Cerebrovas Disease Active U melvin ma 05-15 ity of accident accident 00:00: [place] [...] (hypertens (hypertens it y of ion), ion), [place] benign benign [facility] Branch HLD HLD Disease Active Univers (hyperlipi (hyperlipi it y of demia) demia) [place] [facility] [place] Osteoarthr Osteoarthr Disease Active U nivers itis [...] Active Univers ALLERGIE Class ity of S [facility] Social History Social Habit Start Date Stop Date Quantity Comments Source Exposure to Not sure University SARS-CoV-2 [place] [facility] (event) Branch Alcohol intake 2021-09-16 2021-09-16 Current University 00:00:00 00:00:00 non-drinker of [facility] alcohol Branch (finding) Tobacco use and 2019-11-27 2019-11-27 Never used Universit y of exposure 00:00:00 00:00:00 [facility] Sex Ass[birth year] Universit y of 00:00:00 00:00:00 [facility] Smoking Status Start Date Stop Date Source Never smoker [facility] Medications Ordered Filled Start Stop Current Ordering Indication Dosage Frequency Signature Comments Components Source Medication Medication Date Date Medication? Clinician (SIG) Name Name cefpodoxime 2020-10- No [id number] 100mg Take 1 Univers 100 mg 11-17 tablet by ity of tablet 00:00: 05:59 mouth 2 [place] 00 :00 (two) Medical times Branch daily for 7 days. DULOXETINE 2020-0 Yes [id number] 20mg TAKE 1 U nivers 20 mg 5-22 CAPSULE BY ity of capsule 00:00: MOUTH [place] 00 DAILY. Medical KEEP ON Branch FILE. DULOXETINE 2020-0 Yes [id number] 20mg TAKE 1 U nivers 20 mg 5-22 CAPSULE BY ity of capsule 00:00: MOUTH [place] 00 DAILY. Medical KEEP ON Branch FILE. DULOXETINE 2020-0 Yes [id number] 20mg TAKE 1 U nivers 20 mg 5-22 CAPSULE BY ity of capsule 00:00: MOUTH [place] 00 DAILY. Medical KEEP ON Branch FILE. DULOXETINE 2020-0 Yes [id number] 20mg TAKE 1 U nivers 20 mg 5-22 CAPSULE BY ity of capsule 00:00: MOUTH [place] 00 DAILY. Medical KEEP ON Branch FILE. DULOXETINE 2020-0 Yes [id number] 20mg TAKE 1 U nivers 20 mg 5-22 CAPSULE BY ity of capsule 00:00: MOUTH [place] 00 DAILY. Medical KEEP ON Branch FILE. DULOXETINE 2020-0 Yes [id number] 20mg TAKE 1 U nivers 20 mg 5-22 CAPSULE BY ity of capsule 00:00: MOUTH [place] 00 DAILY. Medical KEEP ON Branch FILE. METOPROLOL 2020-0 Yes [id number] TAKE 1 U nivers TARTRATE 3-16 TABLET BY ity of 100 mg 00:00: MOUTH [place] tablet 00 TWICE A Medical DAY Branch METOPROLOL 2020-0 Yes [id number] TAKE 1 U nivers TARTRATE 3-16 TABLET BY ity of 100 mg 00:00: MOUTH [place] tablet 00 TWICE A Medical DAY Branch METOPROLOL 2020-0 Yes [id number] TAKE 1 U nivers TARTRATE 3-16 TABLET BY ity of 100 mg 00:00: MOUTH [place] tablet 00 TWICE A Medical DAY Branch METOPROLOL 2020-0 Yes [id number] TAKE 1 U nivers TARTRATE 3-16 TABLET BY ity of 100 mg 00:00: MOUTH [place] tablet 00 TWICE A Medical DAY Branch METOPROLOL 2020-0 Yes [id number] TAKE 1 U nivers TARTRATE 3-16 TABLET BY ity of 100 mg 00:00: MOUTH [place] tablet 00 TWICE A Medical DAY Branch METOPROLOL 2020-0 Yes [id number] TAKE 1 U nivers TARTRATE 3-16 TABLET BY ity of 100 mg 00:00: MOUTH [place] tablet 00 TWICE A Medical DAY Branch METOPROLOL 2020-0 Yes [id number] TAKE 1 U nivers TARTRATE 3-16 TABLET BY ity of 100 mg 00:00: MOUTH [place] tablet 00 TWICE A Medical DAY Branch METOPROLOL 2020-0 Yes [id number] TAKE 1 U nivers TARTRATE 3-16 TABLET BY ity of 100 mg 00:00: MOUTH [place] tablet 00 TWICE A Medical DAY Branch METOPROLOL 2020-0 Yes [id number] TAKE 1 U nivers TARTRATE 3-16 TABLET BY ity of 100 mg 00:00: MOUTH [place] tablet 00 TWICE A Medical DAY Branch OLMESARTAN 2018-10 Yes [id number] 40mg TAKE 1 Un mega 40 mg 2-27 TABLET BY ity of tablet 00:00: MOUTH [place] 00 DAILY. Medical KEEP ON Branch FILE. OLMESARTAN 2018-10 Yes [id number] 40mg TAKE 1 Un [facility] 40 mg 2-27 TABLET BY ity of tablet 00:00: MOUTH [place] 00 DAILY. Medical KEEP ON Branch FILE. OLMESARTAN 2018-10 Yes [id number] 40mg TAKE 1 Un [facility] 40 mg 2-27 TABLET BY ity of tablet 00:00: MOUTH [place] 00 DAILY. Medical KEEP ON Branch FILE. OLMESARTAN 2018-10 Yes [id number] 40mg TAKE 1 Un [facility] 40 mg 2-27 TABLET BY ity of tablet 00:00: MOUTH [place] 00 DAILY. Medical KEEP ON Branch FILE. OLMESARTAN 2018-10 Yes [id number] 40mg TAKE 1 Un [facility] 40 mg 2-27 TABLET BY ity of tablet 00:00: MOUTH [place] 00 DAILY. Medical KEEP ON Branch FILE. OLMESARTAN 2018-10 Yes [id number] 40mg TAKE 1 Un mega 40 mg 2-27 TABLET BY ity of tablet 00:00: MOUTH [place] 00 DAILY. Medical KEEP ON Branch FILE. OLMESARTAN 2018-10 Yes [id number] 40mg TAKE 1 Un [facility] 40 mg 2-27 TABLET BY ity of tablet 00:00: MOUTH [place] 00 DAILY. Medical KEEP ON Branch FILE. OLMESARTAN 2018-10 Yes [id number] 40mg TAKE 1 Un [facility] 40 mg 2-27 TABLET BY ity of tablet 00:00: MOUTH [place] 00 DAILY. Medical KEEP ON Branch FILE. OLMESARTAN 2018-10 Yes [id number] 40mg TAKE 1 Un [facility] 40 mg 2-27 TABLET BY ity of tablet 00:00: MOUTH [place] 00 DAILY. Medical KEEP ON Branch FILE. OLMESARTAN 2018-10 Yes [id number] 40mg TAKE 1 [facility] 40 mg 2-27 TABLET BY ity of tablet 00:00: MOUTH [place] 00 DAILY. Medical KEEP ON Branch FILE. OLMESARTAN 2018-10 Yes [id number] 40mg TAKE 1 [facility] 40 mg 2-27 TABLET BY ity of tablet 00:00: MOUTH [place] 00 DAILY. Medical KEEP ON Branch FILE. OLMESARTAN 2018-10 Yes [id number] 40mg TAKE 1 Un [facility] 40 mg 2-27 TABLET BY ity of tablet 00:00: MOUTH [place] 00 DAILY. Medical KEEP ON Branch FILE. OLMESARTAN 2018-10 Yes [id number] 40mg TAKE 1 Un [facility] 40 mg 2-27 TABLET BY ity of tablet 00:00: MOUTH [place] 00 DAILY. Medical KEEP ON Branch FILE. OLMESARTAN 2018- Yes [id number] 40mg TAKE 1 [facility] 40 mg 2-27 TABLET BY ity of tablet 00:00: MOUTH [place] 00 DAILY. Medical KEEP ON Branch FILE. OLMESARTAN 2018-10 Yes [id number] 40mg TAKE 1 [facility] 40 mg 2-27 TABLET BY ity of tablet 00:00: MOUTH [place] 00 DAILY. Medical KEEP ON Branch FILE. OLMESARTAN 2018-10 Yes [id number] 40mg TAKE 1 Un mega 40 mg [...] s: atrial fibrillati on METOLAZONE 2018-10 Yes [id number] 5mg TAKE 1 Un mega 5 mg tablet 2-09 TABLET BY ity of 00:00: MOUTH [place] 00 WEEKLY. Medical TAKE 30 Branch MINUTES BEFORE FUROSEMIDE . METOLAZONE 2018-10 Yes [id number] 5mg TAKE 1 Un mega 5 mg tablet 2-09 TABLET BY ity of 00:00: MOUTH [place] 00 WEEKLY. Medical TAKE 30 Branch MINUTES BEFORE FUROSEMIDE . METOLAZONE 2018-10 Yes [id number] 5mg TAKE 1 Un mega 5 mg tablet 2-09 TABLET BY ity of 00:00: MOUTH [place] 00 WEEKLY. Medical TAKE 30 Branch MINUTES BEFORE FUROSEMIDE . METOLAZONE 2018-10 Yes [id number] 5mg TAKE 1 Un mega 5 mg tablet 2-09 TABLET BY ity of 00:00: MOUTH [place] 00 WEEKLY. Medical TAKE 30 Branch MINUTES BEFORE FUROSEMIDE . METOLAZONE 2018-10 Yes [id number] 5mg TAKE 1 Un mega 5 mg tablet 2-09 TABLET BY ity of 00:00: MOUTH [place] 00 WEEKLY. Medical TAKE 30 Branch MINUTES BEFORE FUROSEMIDE . METOLAZONE 2018-10 Yes [id number] 5mg TAKE 1 Un mega 5 mg tablet 2-09 TABLET BY ity of 00:00: MOUTH [place] 00 WEEKLY. Medical TAKE 30 Branch MINUTES BEFORE FUROSEMIDE . METOLAZONE 2018-10 Yes [id number] 5mg TAKE 1 Un mega 5 mg tablet 2-09 TABLET BY ity of 00:00: MOUTH [place] WEEKLY. Medical TAKE 30 Branch MINUTES BEFORE FUROSEMIDE . METOLAZONE 2018-10 Yes [id number] 5mg TAKE 1 Un mega 5 mg tablet 2-09 TABLET BY ity of 00:00: MOUTH [place] 00 WEEKLY. Medical TAKE 30 Branch MINUTES BEFORE FUROSEMIDE . METOLAZONE 2018-10 Yes [id number] 5mg TAKE 1 Un mega 5 mg tablet 2-09 TABLET BY ity of 00:00: MOUTH [place] 00 WEEKLY. Medical TAKE 30 Branch MINUTES BEFORE FUROSEMIDE . METOLAZONE 2018-10 Yes [id number] 5mg TAKE 1 Un mega 5 mg tablet 2-09 TABLET BY ity of 00:00: MOUTH [place] 00 WEEKLY. Medical TAKE 30 Branch MINUTES BEFORE FUROSEMIDE . METOLAZONE 2018-10 Yes [id number] 5mg TAKE 1 Un mega 5 mg tablet 2-09 TABLET BY ity of 00:00: MOUTH [place] 00 WEEKLY. Medical TAKE 30 Branch MINUTES BEFORE FUROSEMIDE . METOLAZONE 2018-10 Yes [id number] 5mg TAKE 1 Un mega 5 mg tablet 2-09 TABLET BY ity of 00:00: MOUTH [place] 00 WEEKLY. Medical TAKE 30 Branch MINUTES BEFORE FUROSEMIDE . METOLAZONE 2019-1 Yes [id number] 5mg TAKE 1 Un mega 5 mg tablet 2-09 TABLET BY ity of 00:00: MOUTH [place] 00 WEEKLY. Medical TAKE 30 Branch MINUTES BEFORE FUROSEMIDE . METOLAZONE 2018-10 Yes [id number] 5mg TAKE 1 Un mega 5 mg tablet 2-09 TABLET BY ity of 00:00: MOUTH [place] 00 WEEKLY. Medical TAKE 30 Branch MINUTES BEFORE FUROSEMIDE . METOLAZONE 2018-10 Yes [id number] 5mg TAKE 1 Un mega 5 mg tablet 2-09 TABLET BY ity of 00:00: MOUTH [place] 00 WEEKLY. Medical TAKE 30 Branch MINUTES BEFORE FUROSEMIDE . METOLAZONE 2018-10 Yes [id number] 5mg TAKE 1 Un mega 5 mg [...] of (ALPHAGAN P 16:31: each eye 3 [place] OPHTHALMIC) 49 (three) Medic al times Branch daily as needed (eye dryness). brimonidine 2019-0 Yes 1[drp] Place 1 U nivers tartrate 7-11 Drop in ity of (ALPHAGAN P 16:31: each eye 3 [place] OPHTHALMIC) 49 (three) Medic al times Branch daily as needed (eye dryness). brimonidine 2019-0 Yes 1[drp] Place 1 U nivers tartrate 7-11 Drop in ity of (ALPHAGAN P 16:31: each eye 3 [place] OPHTHALMIC) 49 (three) Medic al times Branch [...] (eye dryness). CALCIUM 2019-0 Yes Take by Univers CARBONATE/V 7-11 mouth. ity of ITAMIN D3 16:07: [place] (CALTRATE 35 Medical 600 + D Branch ORAL) CALCIUM 2019-0 Yes Take by Univers CARBONATE/V 7-11 mouth. ity of ITAMIN D3 16:07: [place] (CALTRATE 35 Medical 600 + D Branch ORAL) CALCIUM 2019-0 Yes Take by Univers CARBONATE/V 7-11 mouth. ity of ITAMIN D3 16:07: [place] (CALTRATE 35 Medical 600 + D Branch ORAL) CALCIUM 2019-0 Yes Take by Univers CARBONATE/V 7-11 mouth. ity of ITAMIN D3 16:07: [place] (CALTRATE 35 Medical 600 + D Branch ORAL) CALCIUM 2019-0 Yes Take by Univers CARBONATE/V 7-11 mouth. ity of ITAMIN D3 16:07: [place] (CALTRATE 35 Medical 600 + D Branch ORAL) CALCIUM 2019-0 Yes Take by Univers CARBONATE/V 7-11 mouth. ity of ITAMIN D3 16:07: [place] (CALTRATE 35 Medical 600 + D Branch ORAL) CALCIUM 2019-0 Yes Take by Univers CARBONATE/V 7-11 mouth. ity of ITAMIN D3 16:07: [place] (CALTRATE 35 Medical 600 + D Branch ORAL) CALCIUM 2019-0 Yes Take by Univers CARBONATE/V 7-11 mouth. ity of ITAMIN D3 16:07: [place] (CALTRATE 35 Medical 600 + D Branch ORAL) CALCIUM 2019-0 Yes Take by Univers CARBONATE/V 7-11 mouth. ity of ITAMIN D3 16:07: [place] (CALTRATE 35 Medical 600 + D Branch ORAL) CALCIUM 2019-0 Yes Take by Univers CARBONATE/V 7-11 mouth. ity of ITAMIN D3 16:07: [place] (CALTRATE 35 Medical 600 + D Branch ORAL) CALCIUM 2019-0 Yes Take by Univers CARBONATE/V 7-11 mouth. ity of ITAMIN D3 16:07: [place] (CALTRATE 35 Medical 600 + D Branch ORAL) CALCIUM 2019-0 Yes Take by Univers CARBONATE/V 7-11 mouth. ity of ITAMIN D3 16:07: [place] (CALTRATE 35 Medical 600 + D Branch ORAL) CALCIUM 2019-0 Yes Take by Univers CARBONATE/V 7-11 mouth. ity of ITAMIN D3 16:07: [place] (CALTRATE 35 Medical 600 + D Branch ORAL) CALCIUM 2019-0 Yes Take by Univers CARBONATE/V 7-11 mouth. ity of ITAMIN D3 16:07: [place] (CALTRATE 35 Medical 600 + D Branch ORAL) CALCIUM 2019-0 Yes Take by Univers CARBONATE/V 7-11 mouth. ity of ITAMIN D3 16:07: [place] (CALTRATE 35 Medical 600 + D Branch ORAL) CALCIUM 2019-0 Yes Take by Univers CARBONATE/V 7-11 mouth. ity of ITAMIN D3 16:07: [place] (CALTRATE 35 Medical 600 + D Branch ORAL) brimonidine 2019-0 Yes 1[drp] Place 1 U nivers tartrate 7-11 Drop in ity of (ALPHAGAN P 11:31: each eye 3 [place] OPHTHALMIC) 49 (three) Medic al times Branch daily as needed (eye dryness). brimonidine 2019-0 Yes 1[drp] Place 1 U nivers tartrate 7-11 Drop in ity of (ALPHAGAN P 11:31: each eye 3 [place] OPHTHALMIC) 49 (three) Medic al times Branch daily as needed (eye dryness). brimonidine 2019-0 Yes 1[drp] Place 1 U nivers tartrate 7-11 Drop in ity of (ALPHAGAN P 11:31: each eye 3 [place] OPHTHALMIC) 49 (three) Medic al times Branch daily as needed (eye dryness). CALCIUM 2019-0 Yes Take by Univers CARBONATE/V 7-11 mouth. ity of ITAMIN D3 11:07: [place] (CALTRATE 35 Medical 600 + D Branch ORAL) CALCIUM 2019-0 Yes Take by Univers CARBONATE/V 7-11 mouth. ity of ITAMIN D3 11:07: [place] (CALTRATE 35 Medical 600 + D Branch ORAL) CALCIUM 2019-0 Yes Take by Univers CARBONATE/V 7-11 mouth. ity of ITAMIN D3 11:07: [place] (CALTRATE 35 Medical 600 + D Branch ORAL) vit 2019-0 Yes [id number] 1{capsu Take 1 U nivers C,E-Zn-mercedes 04-23 [id number] le} capsule by ity of r-lutein-ze 00:00: mouth 2 [place] 00 (two) Medical (PRESERVISI times Branch ON AREDS-2) daily. 250-200-40- 1 mg-unit-mg- mg Cap vit 2019-0 Yes [id number] 1{capsu Take 1 U nivers C,E-Zn-mercedes 7-11 [id number] le} capsule by ity of r-lutein-ze 00:00: mouth 2 [place] 00 (two) Medical (PRESERVISI times Branch ON AREDS-2) daily. 250-200-40- 1 mg-unit-mg- mg Cap vit 2018-0 Yes [id number] 1{capsu Take 1 U nivers C,E-Zn-mercedes 7-11 [id number] le} capsule by ity of r-lutein-ze 00:00: mouth 2 [place] 00 (two) Medical (PRESERVISI times Branch ON AREDS-2) daily. 250-200-40- 1 mg-unit-mg- mg Cap vit 2018-0 Yes [id number] 1{capsu Take 1 U nivers C,E-Zn-mercedes 7-11 [id number] le} capsule by ity of r-lutein-ze 00:00: mouth 2 [place] 00 (two) Medical (PRESERVISI times Branch ON AREDS-2) daily. 250-200-40- 1 mg-unit-mg- mg Cap vit 2018-0 Yes [id number] 1{capsu Take 1 U nivers C,E-Zn-mercedes 7-11 [id number] le} capsule by ity of r-lutein-ze 00:00: mouth 2 [place] 00 (two) Medical (PRESERVISI times Branch ON AREDS-2) daily. 250-200-40- 1 mg-unit-mg- mg Cap vit 2018-0 Yes [id number] 1{capsu Take 1 U nivers C,E-Zn-mercedes 7-11 [id number] le} capsule by ity of r-lutein-ze 00:00: mouth 2 [place] 00 (two) Medical (PRESERVISI times Branch ON AREDS-2) daily. 250-200-40- 1 mg-unit-mg- mg Cap vit 2018-0 Yes [id number] 1{capsu Take 1 U nivers C,E-Zn-mercedes 7-11 [id number] le} capsule by ity of r-lutein-ze 00:00: mouth 2 [place] 00 (two) Medical (PRESERVISI times Branch ON AREDS-2) daily. 250-200-40- 1 mg-unit-mg- mg Cap vit 2019-0 Yes [id number] 1{capsu Take 1 U nivers C,E-Zn-mercedes 7-11 [id number] le} capsule by ity of r-lutein-ze 00:00: mouth 2 [place] 00 (two) Medical (PRESERVISI times Branch ON AREDS-2) daily. 250-200-40- 1 mg-unit-mg- mg Cap vit 2019-0 Yes [id number] 1{capsu Take 1 U nivers C,E-Zn-mercedes 7-11 [id number] le} capsule by ity of r-lutein-ze 00:00: mouth 2 [place] 00 (two) Medical (PRESERVISI times Branch ON AREDS-2) daily. 250-200-40- 1 mg-unit-mg- mg Cap vit 2019-0 Yes [id number] 1{capsu Take 1 U nivers C,E-Zn-mercedes 7-11 [id number] le} capsule by ity of r-lutein-ze 00:00: mouth 2 [place] 00 (two) Medical (PRESERVISI times Branch ON AREDS-2) daily. 250-200-40- 1 mg-unit-mg- mg Cap vit 2019-0 Yes [id number] 1{capsu Take 1 U nivers C,E-Zn-mercedes 7-11 [id number] le} capsule by ity of r-lutein-ze 00:00: mouth 2 [place] 00 (two) Medical (PRESERVISI times Branch ON AREDS-2) daily. 250-200-40- 1 mg-unit-mg- mg Cap vit 2019-0 Yes [id number] 1{capsu Take 1 U nivers C,E-Zn-mercedes 7-11 [id number] le} capsule by ity of r-lutein-ze 00:00: mouth 2 [place] 00 (two) Medical (PRESERVISI times Branch ON AREDS-2) daily. 250-200-40- 1 mg-unit-mg- mg Cap vit 2019-0 Yes [id number] 1{capsu Take 1 U nivers C,E-Zn-mercedes 7-11 [id number] le} capsule by ity of r-lutein-ze 00:00: mouth 2 [place] 00 (two) Medical (PRESERVISI times Branch ON AREDS-2) daily. 250-200-40- 1 mg-unit-mg- mg Cap vit 2019-0 Yes [id number] 1{capsu Take 1 U nivers C,E-Zn-mercedes 7-11 [id number] le} capsule by ity of r-lutein-ze 00:00: mouth 2 [place] 00 (two) Medical (PRESERVISI times Branch ON AREDS-2) daily. 250-200-40- 1 mg-unit-mg- mg Cap vit 2019-0 Yes [id number] 1{capsu Take 1 U nivers C,E-Zn-mercedes 7-11 [id number] le} capsule by ity of r-lutein-ze 00:00: mouth 2 [place] 00 (two) Medical (PRESERVISI times Branch ON AREDS-2) daily. 250-200-40- 1 mg-unit-mg- mg Cap vit 2019-0 Yes [id number] 1{capsu Take 1 U nivers C,E-Zn-mercedes 7-11 [id number] le} capsule by ity of r-lutein-ze 00:00: mouth 2 [place] 00 (two) Medical (PRESERVISI times Branch ON AREDS-2) daily. 250-200-40- 1 mg-unit-mg- mg Cap vit 2019-0 Yes [id number] 1{capsu Take 1 U nivers C,E-Zn-mercedes 7-11 [id number] le} capsule by ity of r-lutein-ze 00:00: mouth 2 [place] 00 (two) Medical (PRESERVISI times Branch ON AREDS-2) daily. 250-200-40- 1 mg-unit-mg- mg Cap vit 2019-0 Yes [id number] 1{capsu Take 1 U nivers C,E-Zn-mercedes 7-11 [id number] le} capsule by ity of r-lutein-ze 00:00: mouth 2 [place] 00 (two) Medical (PRESERVISI times Branch ON AREDS-2) daily. 250-200-40- 1 mg-unit-mg- mg Cap vit 2018-0 Yes [id number] 1{capsu Take 1 U nivers C,E-Zn-mercedes 04-23 [id number] le} capsule by ity of r-lutein-ze 00:00: mouth 2 [place] 00 (two) Medical (PRESERVISI times Branch ON AREDS-2) daily. 250-200-40- 1 mg-unit-mg- mg Cap furosemide Yes [id number] 80mg Take 2 Un mega (LASIX) 40 2-20 tablets by ity of mg tablet 00:00: mouth [place] 00 every Medical morning Branch and evening. Keep on file. atorvastati Yes [id number] 40mg Take 1 Univers n 40 mg 2-20 tablet by ity of tablet 00:00: mouth at [place] 00 bedtime. Medical Keep on Branch file. furosemide Yes [id number] 80mg Take 2 Un mega (LASIX) 40 2-20 tablets by ity of mg tablet 00:00: mouth [place] 00 every Medical morning Branch and evening. Keep on file. atorvastati Yes [id number] 40mg Take 1 Univers n 40 mg 2-20 tablet by ity of tablet 00:00: mouth at [place] 00 bedtime. Medical Keep on Branch file. furosemide Yes [id number] 80mg Take 2 Un mega (LASIX) 40 2-20 tablets by ity of mg tablet 00:00: mouth [place] 00 every Medical morning Branch and evening. Keep on file. atorvastati Yes [id number] 40mg Take 1 Univers n 40 mg 2-20 tablet by ity of tablet 00:00: mouth at [place] 00 bedtime. Medical Keep on Branch file. furosemide Yes [id number] 80mg Take 2 Un mega (LASIX) 40 2-20 tablets by ity of mg tablet 00:00: mouth [place] 00 every Medical morning Branch and evening. Keep on file. atorvastati Yes [id number] 40mg Take 1 Univers n 40 mg 2-20 tablet by ity of tablet 00:00: mouth at [place] 00 bedtime. Medical Keep on Branch file. furosemide Yes [id number] 80mg Take 2 Un mega (LASIX) 40 2-20 tablets by ity of mg tablet 00:00: mouth [place] 00 every Medical morning Branch and evening. Keep on file. atorvastati Yes [id number] 40mg Take 1 Univers n 40 mg 2-20 tablet by ity of tablet 00:00: mouth at [place] 00 bedtime. Medical Keep on Branch file. furosemide Yes [id number] 80mg Take 2 Un mega (LASIX) 40 2-20 tablets by ity of mg tablet 00:00: mouth [place] 00 every Medical morning Branch and evening. Keep on file. furosemide Yes [id number] 80mg Take 2 Un mega (LASIX) 40 2-20 tablets by ity of mg tablet 00:00: mouth [place] 00 every Medical morning Branch and evening. Keep on file. atorvastati Yes [id number] 40mg Take 1 Univers n 40 mg 2-20 tablet by ity of tablet 00:00: mouth at [place] 00 bedtime. Medical Keep on Branch file. atorvastati Yes [id number] 40mg Take 1 Univers n 40 mg 2-20 tablet by ity of tablet 00:00: mouth at [place] 00 bedtime. Medical Keep on Branch file. metOLazone 0 Yes [id number] 5mg Take 1 Un mega 5 mg tablet 2-20 tablet by ity of 00:00: mouth [place] 00 weekly. Medical Take 30 Branch minutes before furosemide . furosemide 0 Yes [id number] 80mg Take 2 Un mega (LASIX) 40 2-20 tablets by ity of mg tablet 00:00: mouth [place] 00 every Medical morning Branch and evening. Keep on file. atorvastati 0 Yes [id number] 40mg Take 1 Univers n 40 mg 2-20 tablet by ity of tablet 00:00: mouth at [place] 00 bedtime. Medical Keep on Branch file. furosemide 0 Yes [id number] 80mg Take 2 Un mega (LASIX) 40 2-20 tablets by ity of mg tablet 00:00: mouth [place] 00 every Medical morning Branch and evening. Keep on file. atorvastati 2018- Yes [id number] 40mg Take 1 Univers n 40 mg 2-20 tablet by ity of tablet 00:00: mouth at [place] 00 bedtime. Medical Keep on Branch file. furosemide 2019-0 Yes [id number] 80mg Take 2 Un mega (LASIX) 40 2-20 tablets by ity of mg tablet 00:00: mouth [place] 00 every Medical morning Branch and evening. Keep on file. atorvastati 2019-0 Yes [id number] 40mg Take 1 Univers n 40 mg 2-20 tablet by ity of tablet 00:00: mouth at [place] 00 bedtime. Medical Keep on Branch file. furosemide 2019-0 Yes [id number] 80mg Take 2 Un mega (LASIX) 40 2-20 tablets by ity of mg tablet 00:00: mouth [place] 00 every Medical morning Branch and evening. Keep on file. atorvastati Yes [id number] 40mg Take 1 Univers n 40 mg 2-20 tablet by ity of tablet 00:00: mouth at [place] 00 bedtime. Medical Keep on Branch file. furosemide 2018-0 Yes [id number] 80mg Take 2 Un mega (LASIX) 40 2-20 tablets by ity of mg tablet 00:00: mouth [place] 00 every Medical morning Branch and evening. Keep on file. atorvastati Yes [id number] 40mg Take 1 Univers n 40 mg 2-20 tablet by ity of tablet 00:00: mouth at [place] 00 bedtime. Medical Keep on Branch file. furosemide 2018-0 Yes [id number] 80mg Take 2 Un mega (LASIX) 40 2-20 tablets by ity of mg tablet 00:00: mouth [place] 00 every Medical morning Branch and evening. Keep on file. atorvastati 2018-0 Yes [id number] 40mg Take 1 Univers n 40 mg 2-20 tablet by ity of tablet 00:00: mouth at [place] 00 bedtime. Medical Keep on Branch file. furosemide 2019-0 Yes [id number] 80mg Take 2 Un mega (LASIX) 40 2-20 tablets by ity of mg tablet 00:00: mouth [place] 00 every Medical morning Branch and evening. Keep on file. atorvastati 2019-0 Yes [id number] 40mg Take 1 Univers n 40 mg 2-20 tablet by ity of tablet 00:00: mouth at [place] 00 bedtime. Medical Keep on Branch file. furosemide 2019-0 Yes [id number] 80mg Take 2 Un mega (LASIX) 40 2-20 tablets by ity of mg tablet 00:00: mouth [place] 00 every Medical morning Branch and evening. Keep on file. atorvastati Yes [id number] 40mg Take 1 Univers n 40 mg 2-20 tablet by ity of tablet 00:00: mouth at [place] 00 bedtime. Medical Keep on Branch file. furosemide 0 Yes [id number] 80mg Take 2 Un mega (LASIX) 40 2-20 tablets by ity of mg tablet 00:00: mouth [place] 00 every Medical morning Branch and evening. Keep on file. atorvastati Yes [id number] 40mg Take 1 Univers n 40 mg 2-20 tablet by ity of tablet 00:00: mouth at [place] 00 bedtime. Medical Keep on Branch file. furosemide Yes [id number] 80mg Take 2 Un mega (LASIX) 40 2-20 tablets by ity of mg tablet 00:00: mouth [place] 00 every Medical morning Branch and evening. Keep on file. atorvastati Yes [id number] 40mg Take 1 Univers n 40 mg 2-20 tablet by ity of tablet 00:00: mouth at [place] 00 bedtime. Medical Keep on Branch file. metOLazone 0 Yes [id number] 5mg Take 1 Un mega 5 mg tablet 2-20 tablet by ity of 00:00: mouth [place] 00 weekly. Medical Take 30 Branch minutes before furosemide . furosemide 0 Yes [id number] 80mg Take 2 Un mega (LASIX) 40 2-20 tablets by ity of mg tablet 00:00: mouth [place] 00 every Medical morning Branch and evening. Keep on file. atorvastati Yes [id number] 40mg Take 1 Univers n 40 mg 2-20 tablet by ity of tablet 00:00: mouth at [place] 00 bedtime. Medical Keep on Branch file. metOLazone 0 Yes [id number] 5mg Take 1 Un mega 5 mg tablet 2-20 tablet by ity of 00:00: mouth [place] 00 weekly. Medical Take 30 Branch minutes before furosemide . furosemide 0 Yes [id number] 80mg Take 2 Un mega (LASIX) 40 2-20 tablets by ity of mg tablet 00:00: mouth [place] 00 every Medical morning Branch and evening. Keep on file. atorvastati Yes [id number] 40mg Take 1 Univers n 40 mg 2-20 tablet by ity of tablet 00:00: mouth at [place] 00 bedtime. Medical Keep on Branch file. metoprolol 2017-10 Yes [id number] 100mg Take 1 Univers tartrate 2-27 tablet by ity of 100 mg 00:00: mouth 2 [place] tablet 00 (two) Medical times Branch daily. metoprolol 2017-10 Yes [id number] 100mg Take 1 Univers tartrate 2-27 tablet by ity of 100 mg 00:00: mouth 2 [place] tablet 00 (two) Medical times Branch daily. metoprolol 2017-10 Yes [id number] 100mg Take 1 Univers tartrate 2-27 tablet by ity of 100 mg 00:00: mouth 2 [place] tablet 00 (two) Medical times Branch daily. metoprolol 2017-10 Yes [id number] 100mg Take 1 Univers tartrate 2-27 tablet by ity of 100 mg 00:00: mouth 2 [place] tablet 00 (two) Medical times Branch daily. metoprolol 2017-10 Yes [id number] 100mg Take 1 Univers tartrate 2-27 tablet by ity of 100 mg 00:00: mouth 2 [place] tablet 00 (two) Medical times Branch daily. metoprolol 2017-10 Yes [id number] 100mg Take 1 Univers tartrate 2-27 tablet by ity of 100 mg 00:00: mouth 2 [place] tablet 00 (two) Medical times Branch daily. metoprolol 2017-10 Yes [id number] 100mg Take 1 Univers tartrate 2-27 tablet by ity of 100 mg 00:00: mouth 2 [place] tablet 00 (two) Medical times Branch daily. metoprolol 2017-10 Yes [id number] 100mg Take 1 Univers tartrate 2-27 tablet by ity of 100 mg 00:00: mouth 2 [place] tablet 00 (two) Medical times Branch daily. metoprolol 2017-10 Yes [id number] 100mg Take 1 Univers tartrate 2-27 tablet by ity of 100 mg 00:00: mouth 2 [place] tablet 00 (two) Medical times Branch daily. metoprolol 2017-10 Yes [id number] 100mg Take 1 Univers tartrate 2-27 tablet by ity of 100 mg 00:00: mouth 2 [place] tablet 00 (two) Medical times Branch daily. metoprolol 2017-10 2020- No [id number] 100mg Take 1 Univers tartrate 2-27 03-16 [...] by ity of 00:00: mouth 2 [place] (two) Medical times Branch daily. KCL 10 mEq 2017-10 Yes 10meq Take 1 Univ ers tablet 2-10 tablet by ity of 00:00: mouth 2 [place] (two) Medical times Branch daily. rivaroxaban 2017-10 [...] by ity of 00:00: mouth 2 [place] (two) Medical times Branch daily. KCL 10 [...] mouth 2 (two) Medical times Branch daily. DULoxetine 2017-10 [...] MG 14:51: mouth Medical tablet 07 daily. [facility] olmesartan- Yes 1{tbl} QD Take [address] [facility] [address] hydrochloro 8-04 tablet by [place] es thiazide 14:51: mouth Medical (BENICAR 07 daily. [facility] HCT) 40-25 mg per tablet rivaroxaban Yes 20mg QD Take [address] [facility] (XARELTO) 8-04 by mouth [facility] 20 mg Tab 14:51: daily. Medica l tablet 07 [facility] Caltrate Caltrate Yes Carlos not Comm on 600+D 600+D Diaz defined [facility] Xarelto Xarelto Yes Carlos not Common Diaz defined [facility] Cranberry Cranberry Yes Carlos not Co mmon Diaz defined [facility] Duloxetine Duloxetine Yes Carlos not Common HCl HCl Diaz defined [facility] Diltiazem Diltiazem Yes Carlos TAKE 1 Common HCl ER HCl ER Diaz CAPSULE BY Spiri t MOUTH - [facility] TWICE A [facility] Alphagan P Alphagan P Yes Carlos not Common Diaz defined [facility] Xyzal Xyzal Yes Carlos not Common Diaz defined [facility] Atorvastati Atorvastati Yes Carlos not Common n Calcium n Calcium Diaz defined Sp kelly [facility] Olmesartan Olmesartan Yes Carlos not Common Medoxomil Medoxomil Diaz defined Sp kelly [facility] potassium potassium Yes Carlos not Co mmon Diaz defined [facility] Metolazone Metolazone Yes Carlos not Common Diaz defined [facility] PreserVisio PreserVisio Yes Carlos not Common n/Lutein n/Lutein Diaz defined Spir it [facility] tylenol tylenol Yes Carlos not Common Diaz defined [facility] Furosemide Furosemide Yes Carlos not Common Diaz defined [facility] Immunizations Ordered Filled Immunization Date Status Comments Sour e Immunization Name Name SARS-COV-2 COVID-19 2022-03-05 Completed Unive rsity of MODERNA 0.25ML 00:00:00 [facility] BOOSTER VACCINE Branch SARS-COV-2 COVID-19 2021-10-04 Completed Unive rsity of MODERNA BOOSTER 00:00:00 [facility] ical VACCINE Branch SARS-COV-2 COVID-19 2021-10-04 Completed Unive rsity of MODERNA 0.25ML 00:00:00 [facility] BOOSTER VACCINE Branch SARS-COV-2 COVID-19 2020-11-14 Completed Unive rsity of MODERNA VACCINE 00:00:00 [facility] Branch SARS-COV-2 COVID-19 2020-11-14 Completed Unive rsity of MODERNA VACCINE 00:00:00 [facility] Branch SARS-COV-2 COVID-19 2020-11-14 Completed Unive rsity of MODERNA VACCINE 00:00:00 [facility] Branch SARS-COV-2 COVID-19 2020-10-17 Completed Unive rsity of MODERNA VACCINE 00:00:00 [facility] Branch SARS-COV-2 COVID-19 2020-10-17 Completed Unive rsity of MODERNA VACCINE 00:00:00 [facility] Branch SARS-COV-2 COVID-19 2020-10-17 Completed Unive rsity of MODERNA VACCINE 00:00:00 [facility] [place] [facility] PPD (TB) 2019-05-12 Completed University of 00:00:00 [facility] Pneumococcal 2019-05-12 Completed University o f Polysaccharide, 00:00:00 [place] [facility] ical PPSV23 (PNEUMOVAX) Branch PPD (TB) 2019-05-12 Completed University of 00:00:00 [facility] Pneumococcal 2019-05-12 Completed University o f Polysaccharide, 00:00:00 [place] [facility] ical PPSV23 (PNEUMOVAX) Branch PPD (TB) 2019-05-12 Completed University of 00:00:00 [facility] Pneumococcal 2019-05-12 Completed University o f Polysaccharide, 00:00:00 [place] [facility] PPSV23 (PNEUMOVAX) Branch PPD (TB) 2019-05-12 Completed University of 00:00:00 [facility] Pneumococcal 2019-05-12 Completed University o f Polysaccharide, 00:00:00 [place] [facility] ical PPSV23 (PNEUMOVAX) Branch PPD (TB) 2019-05-12 Completed University of 00:00:00 [facility] Pneumococcal 2019-05-12 Completed University o f Polysaccharide, 00:00:00 [place] [facility] ical PPSV23 (PNEUMOVAX) Branch PPD (TB) 2019-05-12 Completed University of 00:00:00 [facility] Pneumococcal 2019-05-12 Completed University o f Polysaccharide, 00:00:00 [place] [facility] ical PPSV23 (PNEUMOVAX) Branch PPD (TB) 2019-05-12 Completed University of 00:00:00 [facility] Pneumococcal 2019-05-12 Completed University o f Polysaccharide, 00:00:00 [place] [facility] ical PPSV23 (PNEUMOVAX) Branch PPD (TB) 2019-05-12 Completed University of 00:00:00 [facility] Pneumococcal 2019-05-12 Completed University o f Polysaccharide, 00:00:00 [place] [facility] ical PPSV23 (PNEUMOVAX) Branch PPD (TB) 2019-05-12 Completed University of 00:00:00 [facility] Pneumococcal 2019-05-12 Completed University o f Polysaccharide, 00:00:00 [place] [facility] ical PPSV23 (PNEUMOVAX) Branch PPD (TB) 2019-05-12 Completed University of 00:00:00 [facility] Pneumococcal 2019-05-12 Completed University o f Polysaccharide, 00:00:00 [place] [facility] ical PPSV23 (PNEUMOVAX) Branch PPD (TB) 2019-05-12 Completed University of 00:00:00 [facility] Pneumococcal 2019-05-12 Completed University o f Polysaccharide, 00:00:00 [place] [facility] ical PPSV23 (PNEUMOVAX) Branch PPD (TB) 2019-05-12 Completed University of 00:00:00 [facility] Pneumococcal 2019-05-12 Completed University o f Polysaccharide, 00:00:00 [place] [facility] ical PPSV23 (PNEUMOVAX) Branch PPD (TB) 2019-05-12 Completed University of 00:00:00 [facility] Pneumococcal 2019-05-12 Completed University o f Polysaccharide, 00:00:00 [place] [facility] ical PPSV23 (PNEUMOVAX) Branch PPD (TB) 2019-05-12 Completed University of 00:00:00 [facility] Pneumococcal 2019-05-12 Completed University o f Polysaccharide, 00:00:00 [place] [facility] ical PPSV23 (PNEUMOVAX) Branch PPD (TB) 2019-05-12 Completed University of 00:00:00 [facility] Pneumococcal 2019-05-12 Completed University o f Polysaccharide, 00:00:00 [place] [facility] ical PPSV23 (PNEUMOVAX) Branch PPD (TB) 2019-05-12 Completed University of 00:00:00 [facility] Pneumococcal 2019-05-12 Completed University o f Polysaccharide, 00:00:00 [facility] ical PPSV23 (PNEUMOVAX) Branch PPD (TB) 2019-05-12 Completed University of 00:00:00 [facility] Pneumococcal 2019-05-12 Completed University o f Polysaccharide, 00:00:00 [place] [facility] ical PPSV23 (PNEUMOVAX) Branch PPD (TB) 2019-05-12 Completed University of 00:00:00 [facility] Pneumococcal 2019-05-12 Completed University o f Polysaccharide, 00:00:00 [place] [facility] ical PPSV23 (PNEUMOVAX) Branch PPD (TB) 2019-05-12 Completed University of 00:00:00 [facility] Pneumococcal 2019-05-12 Completed University o f Polysaccharide, 00:00:00 [place] [facility] ical PPSV23 (PNEUMOVAX) Branch Influenza Virus 2018-07-14 Completed Universit y of Vaccine 00:00:00 [facility] Influenza Virus 2018-07-14 Completed Universit y of Vaccine 00:00:00 [facility] Influenza Virus 2018-07-14 Completed Universit y of Vaccine 00:00:00 [facility] Influenza Virus 2018-07-14 Completed Universit y of Vaccine 00:00:00 [facility] Influenza Virus 2018-07-14 Completed Universit y of Vaccine 00:00:00 [facility] Influenza Virus 2018-07-14 Completed Universit y of Vaccine 00:00:00 [facility] Influenza Virus 2018-07-14 Completed Universit y of Vaccine 00:00:00 [facility] Influenza Virus 2018-07-14 Completed Universit y of Vaccine 00:00:00 [facility] Influenza Virus 2018-07-14 Completed Universit y of Vaccine 00:00:00 [facility] Influenza Virus 2018-07-14 Completed Universit y of Vaccine 00:00:00 [facility] Influenza Virus 2018-07-14 Completed Universit y of Vaccine 00:00:00 [facility] Influenza Virus 2018-07-14 Completed Universit y of Vaccine 00:00:00 [facility] Influenza Virus 2018-07-14 Completed Universit y of Vaccine 00:00:00 [facility] Influenza Virus 2018-07-14 Completed Universit y of Vaccine 00:00:00 [facility] Influenza Virus 2018-07-14 Completed Universit y of Vaccine 00:00:00 [facility] Influenza Virus 2018-07-14 Completed Universit y of Vaccine 00:00:00 [facility] Influenza Virus 2018-07-14 Completed Universit y of Vaccine 00:00:00 [facility] Influenza Virus 2018-07-14 Completed Universit y of Vaccine 00:00:00 [facility] Influenza Virus 2018-07-14 Completed Universit y of Vaccine 00:00:00 [facility] Influenza High Dose 2017-07-27 Completed Unive rsity of 00:00:00 [facility] Influenza High Dose 2017-07-27 Completed Unive rsity of 00:00:00 [facility] Influenza High Dose 2017-07-27 Completed Unive rsity of 00:00:00 [facility] Influenza High Dose 2017-07-27 Completed Unive rsity of 00:00:00 [facility] Influenza High Dose 2017-07-27 Completed Unive rsity of 00:00:00 [facility] Influenza High Dose 2017-07-27 Completed Unive rsity of 00:00:00 [facility] Influenza High Dose 2017-07-27 Completed Unive rsity of 00:00:00 [facility] Influenza High Dose 2017-07-27 Completed Unive rsity of 00:00:00 [facility] Influenza High Dose 2017-07-27 Completed Unive rsity of 00:00:00 [facility] Influenza High Dose 2017-07-27 Completed Unive rsity of 00:00:00 [facility] Influenza High Dose 2017-07-27 Completed Unive rsity of 00:00:00 [facility] Influenza High Dose 2017-07-27 Completed Unive rsity of 00:00:00 [facility] Influenza High Dose 2017-07-27 Completed Unive rsity of 00:00:00 [facility] Influenza High Dose 2017-07-27 Completed Unive rsity of 00:00:00 [facility] Influenza High Dose 2017-07-27 Completed Unive rsity of 00:00:00 [facility] Influenza High Dose 2017-07-27 Completed Unive rsity of 00:00:00 [facility] Influenza High Dose 2017-07-27 Completed Unive rsity of 00:00:00 [facility] Influenza High Dose 2017-07-27 Completed Unive rsity of 00:00:00 [facility] Influenza High Dose 2017-07-27 Completed Unive rsity of 00:00:00 [facility] DTAP 2016-09-11 Completed University of 00:00:00 [facility] Pneumococcal 13 2016-09-11 Completed Universit y of Conjugate, PCV13 00:00:00 [facility] dical (Prevnar 13) Branch DTAP 2016-09-11 Completed University of 00:00:00 [facility] Pneumococcal 13 2016-09-11 Completed Universit y of Conjugate, PCV13 00:00:00 [facility] dical (Prevnar 13) Branch DTAP 2016-09-11 Completed University of 00:00:00 [facility] Pneumococcal 13 2016-09-11 Completed Universit y of Conjugate, PCV13 00:00:00 [facility] dical (Prevnar 13) Branch DTAP 2016-09-11 Completed University of 00:00:00 [facility] Pneumococcal 13 2016-09-11 Completed Universit y of Conjugate, PCV13 00:00:00 [facility] dical (Prevnar 13) Branch DTAP 2016-09-11 Completed University of 00:00:00 [facility] Pneumococcal 13 2016-09-11 Completed Universit y of Conjugate, PCV13 00:00:00 [facility] dical (Prevnar 13) Branch DTAP 2016-09-11 Completed University of 00:00:00 [facility] Pneumococcal 13 2016-09-11 Completed Universit y of Conjugate, PCV13 00:00:00 [facility] dical (Prevnar 13) Branch DTAP 2016-09-11 Completed University of 00:00:00 [facility] Pneumococcal 13 2016-09-11 Completed Universit y of Conjugate, PCV13 00:00:00 [facility] dical (Prevnar 13) Branch DTAP 2016-09-11 Completed University of 00:00:00 [facility] Pneumococcal 13 2016-09-11 Completed Universit y of Conjugate, PCV13 00:00:00 [facility] dical (Prevnar 13) Branch DTAP 2016-09-11 Completed University of 00:00:00 [facility] Pneumococcal 13 2016-09-11 Completed Universit y of Conjugate, PCV13 00:00:00 [facility] dical (Prevnar 13) Branch DTAP 2016-09-11 Completed University of 00:00:00 [facility] Pneumococcal 13 2016-09-11 Completed Universit y of Conjugate, PCV13 00:00:00 [facility] dical (Prevnar 13) Branch DTAP 2016-09-11 Completed University of 00:00:00 [facility] Pneumococcal 13 2016-09-11 Completed Universit y of Conjugate, PCV13 00:00:00 [facility] dical (Prevnar 13) Branch DTAP 2016-09-11 Completed University of 00:00:00 [facility] Pneumococcal 13 2016-09-11 Completed Universit y of Conjugate, PCV13 00:00:00 [facility] dical (Prevnar 13) Branch DTAP 2016-09-11 Completed University of 00:00:00 [facility] Pneumococcal 13 2016-09-11 Completed Universit y of Conjugate, PCV13 00:00:00 [facility] dical (Prevnar 13) Branch DTAP 2016-09-11 Completed University of 00:00:00 [facility] Pneumococcal 13 2016-09-11 Completed Universit y of Conjugate, PCV13 00:00:00 [facility] dical (Prevnar 13) Branch DTAP 2016-09-11 Completed University of 00:00:00 [facility] Pneumococcal 13 2016-09-11 Completed Universit y of Conjugate, PCV13 00:00:00 [facility] dical (Prevnar 13) Branch DTAP 2016-09-11 Completed University of 00:00:00 [facility] Pneumococcal 13 2016-09-11 Completed Universit y of Conjugate, PCV13 00:00:00 [facility] dical (Prevnar 13) Branch DTAP 2016-09-11 Completed University of 00:00:00 [facility] Pneumococcal 13 2016-09-11 Completed Universit y of Conjugate, PCV13 00:00:00 [place] [facility] dical (Prevnar 13) Branch DTAP 2016-09-11 Completed University of 00:00:00 [facility] Pneumococcal 13 2016-09-11 Completed Universit y of Conjugate, PCV13 00:00:00 [facility] dical (Prevnar 13) Branch DTAP 2016-09-11 Completed University of 00:00:00 [facility] Pneumococcal 13 2016-09-11 Completed Universit y of Conjugate, PCV13 00:00:00 [facility] dical (Prevnar 13) Branch Influenza High Dose 2016-07-02 Completed Unive rsity of 00:00:00 [facility] Influenza High Dose 2016-07-02 Completed Unive rsity of 00:00:00 [facility] Influenza High Dose 2016-07-02 Completed Unive rsity of 00:00:00 [facility] Influenza High Dose 2016-07-02 Completed Unive rsity of 00:00:00 [facility] Influenza High Dose 2016-07-02 Completed Unive rsity of 00:00:00 [facility] Influenza High Dose 2016-07-02 Completed Unive rsity of 00:00:00 [facility] Influenza High Dose 2016-07-02 Completed Unive rsity of 00:00:00 [facility] Influenza High Dose 2016-07-02 Completed Unive rsity of 00:00:00 [facility] Influenza High Dose 2016-07-02 Completed Unive rsity of 00:00:00 [facility] Influenza High Dose 2016-07-02 Completed Unive rsity of 00:00:00 [facility] Influenza High Dose 2016-07-02 Completed Unive rsity of 00:00:00 [facility] Influenza High Dose 2016-07-02 Completed Unive rsity of 00:00:00 [facility] Influenza High Dose 2016-07-02 Completed Unive rsity of 00:00:00 [facility] Influenza High Dose 2016-07-02 Completed Unive rsity of 00:00:00 [facility] Influenza High Dose 2016-07-02 Completed Unive rsity of 00:00:00 [facility] Influenza High Dose 2016-07-02 Completed Unive rsity of 00:00:00 [facility] Influenza High Dose 2016-07-02 Completed Unive rsity of 00:00:00 [facility] Influenza High Dose 2016-07-02 Completed Unive rsity of 00:00:00 [facility] Branch Influenza High Dose 2016-07-02 Completed Unive rsity of 00:00:00 [facility] Branch Zoster(Zostavax)( 2013-09-22 Completed Unive rsity of ingles) 00:00:00 [place] [facility] Zoster(Zostavax)( 2013-09-22 Completed Unive rsity of ingles) 00:00:00 [facility] Zoster(Zostavax)( 2013-09-22 Completed Unive rsity of ingles) 00:00:00 [facility] Zoster(Zostavax)( 2013-09-22 Completed Unive rsity of ingles) 00:00:00 [facility] Zoster(Zostavax)( 2013-09-22 Completed Unive rsity of ingles) 00:00:00 [facility] Zoster(Zostavax)( 2013-09-22 Completed Unive rsity of ingles) 00:00:00 [facility] Zoster(Zostavax)( 2013-09-22 Completed Unive rsity of ingles) 00:00:00 [facility] Zoster(Zostavax)( 2013-09-22 Completed Unive rsity of ingles) 00:00:00 [facility] Zoster(Zostavax)( 2013-09-22 Completed Unive rsity of ingles) 00:00:00 [facility] Zoster(Zostavax)( 2013-09-22 Completed Unive rsity of ingles) 00:00:00 [facility] Zoster(Zostavax)( 2013-09-22 Completed Unive rsity of ingles) 00:00:00 [place] [facility] Zoster(Zostavax)( 2013-09-22 Completed Unive rsity of ingles) 00:00:00 [facility] Zoster(Zostavax)( 2013-09-22 Completed Unive rsity of ingles) 00:00:00 [facility] Zoster(Zostavax)( 2013-09-22 Completed Unive rsity of ingles) 00:00:00 [facility] Zoster(Zostavax)( 2013-09-22 Completed Unive rsity of ingles) 00:00:00 [facility] Zoster(Zostavax)( 2013-09-22 Completed Unive rsity of ingles) 00:00:00 [facility] Zoster(Zostavax)( 2013-09-22 Completed Unive rsity of ingles) 00:00:00 [facility] Zoster(Zostavax)( 2013-09-22 Completed Unive rsity of ingles) 00:00:00 [facility] Zoster(Zostavax)( 2013-09-22 Completed Unive rsity of ingles) 00:00:00 [facility] Vital Signs Vital Name Observation Time Observation Value Comments Source Systolic blood 2021-09-16 19:00:00 155 mm[Hg] Univer sity of pressure [facility] Diastolic blood 2021-09-16 19:00:00 57 mm[Hg] Unive rsity of [facility] Heart rate 2021-09-16 19:00:00 54 /min [facility] Respiratory rate 2021-09-16 19:00:00 17 /min [facility] Oxygen saturation in 2021-09-16 19:00:00 98 /min [facility] Arterial blood by [facility] Pulse oximetry [place] Body temperature 2021-09-16 17:42:00 36.72 Nicole [facility] Body height 2021-09-16 17:42:00 167.6 cm [facility] Body weight 2021-09-16 17:42:00 76.204 kg [facility] BMI 2021-09-16 17:42:00 27.12 kg/m2 [facility] Systolic blood 2019-11-09 18:57:00 131 mm[Hg] Univer sity of pressure [facility] Diastolic blood 2019-11-09 18:57:00 81 mm[Hg] Unive rsity of pressure [facility] Heart rate 2019-11-09 18:57:00 90 /min [facility] Body temperature 2019-11-09 18:57:00 36.17 Nicole [facility] [place] [facility] Respiratory rate 2019-11-09 18:57:00 20 /min [facility] ersity of [facility] Body height 2019-11-09 18:57:00 165.1 cm [facility] [place] [facility] [place] Body weight 2019-11-09 18:57:00 76.2 kg [facility] [place] [facility] BMI 2019-11-09 18:57:00 27.96 kg/m2 Universi ty of [facility] Systolic blood 2019-11-09 18:57:00 131 mm[Hg] Univer sity of pressure [facility] Diastolic blood 2019-11-09 18:57:00 81 mm[Hg] Unive rsity of pressure [facility] Heart rate 2019-11-09 18:57:00 90 /min Universi ty of [facility] Body temperature 2019-11-09 18:57:00 36.17 Nicole [facility] Respiratory rate 2019-11-09 18:57:00 20 /min [facility] Body height 2019-11-09 18:57:00 165.1 cm Universi ty of [facility] Body weight 2019-11-09 18:57:00 76.2 kg Universi ty of [facility] BMI 2019-11-09 18:57:00 27.96 kg/m2 Universi ty of [facility] Body temperature 2019-05-14 20:50:00 35.72 Nicole [facility] ersity of [facility] Body temperature 2019-05-12 18:28:00 36.22 Nicole [facility] Body weight 2019-05-12 18:28:00 72.621 kg Universi ty of [facility] BMI 2019-05-12 18:28:00 25.84 kg/m2 Universi ty of [facility] Procedures Procedure Date / Time Performing Clinician Source Performed SARS-COV-2 COVID-19 2022-03-05 20:48:52 Doctor Unassigned, No [facility] [place] VACCINE Name Medical Branch BOOSTER,0.25ML,IM (MODERNA) SARS-COV-2 COVID-19 2021-10-04 22:31:03 Doctor Unassigned, No [facility] [place] VACCINE Name Medical Branch BOOSTER,0.25ML,IM (MODERNA) URINALYSIS 2021-09-16 18:12:[address] [facility] NOTICE OF PRIVACY 2021-09-16 17:32:53 Doctor Unassigned, No [facility] [place] PRACTICES Name Medical Branch CONSENT/REFUSAL FOR 2021-09-16 17:32:23 Doctor Unassigned, No [facility] [place] DI[facility]NOSIS AND TREATMENT Name [facility] SCANNED LAB RESULTS 2019-11-09 06:01:00 Doctor Unassigned, No [facility] [place] Name [facility] PPD (TB) 2019-05-12 19:26:19 Irma Pennington [facility] PNEUMOCOCCAL VACCINE, 2019-05-12 19:26:19 Irma [place] [facility] 23-VALENT (PNEUMOVAX) [facility] anch Encounters Start End Encounter Admission Attending Care Care Encounter Source Date/Time Date/Time Type Type Clinicians Facility Department ID 2022-02-19 Outpatient Banks, STLMLC STLMLC [id number] Common 08:38:01 Mauri [facility] 2021-11-08 Outpatient Banks, STLMLC STLMLC [id number] Common 14:35:19 Mauri [facility] 2021-11-08 Outpatient Banks, STLMLC STLMLC [id number] Common 13:45:19 Mauri [id number] [facility] 2021-11-08 Outpatient Banks, STLMLC STLMLC [id number] Common 13:43:26 Mauri [id number] [facility] 2021-11-08 Outpatient Banks, STLMLC STLMLC [id number] Common 12:53:23 Mauri 90864 [facility] 2021-11-08 Outpatient STLMLC STLMLC [id number] Common 11:35:39 [id number] [facility] 2021-11-08 Outpatient STLMLC STLMLC [id number] Common 11:32:21 [id number] [facility] 2021-11-08 Outpatient STLMLC STLMLC [id number] Common 11:28:02 [id number] [facility] 2022-03-08 2022-03-08 ambulatory STLMLC STLMLC [id number] Common 00:00:00 00:00:00 [facility] 2022-03-05 2022-03-05 Imm/Inj Vaccine, Adc Family Medicine [facility] 1.2.840.114 [id number] Univers 16:00:00 16:10:00 Visit Félix Garcia 350.1.13 .10 [facility] 4.2.7.2.686 Lang LINDER [phone] Sc dical [address] 2022-03-05 2022-03-05 Outpatient R [facility] [id number] Univers 16:00:00 16:00:00 [id number] [facility] 2022-03-05 2022-03-05 Outpatient R JOSE [facility] [id number] Univers 16:00:00 16:00:00 FÉLIX [facility] 2022-02-18 2022-02-18 ambulatory STLMLC STLMLC [id number] Common 00:00:00 00:00:00 [facility] 2022-02-07 2022-02-07 ambulatory STLMLC STLMLC [id number] Common 00:00:00 00:00:00 [facility] 2022-02-07 2022-02-07 ambulatory STLMLC STLMLC [id number] Common 00:00:00 00:00:00 [facility] 2022-01-29 2022-01-29 ambulatory STLMLC STLMLC [id number] Common 00:00:00 00:00:00 [facility] 2022-01-29 2022-01-29 ambulatory STLMLC STLMLC [id number] Common 00:00:00 00:00:00 [facility] 2021-12-28 2021-12-28 ambulatory STLMLC STLMLC [id number] Common 00:00:00 00:00:00 [facility] 2021-10-30 2021-10-30 ambulatory STLMLC STLMLC [id number] Common 00:00:00 00:00:00 [facility] 2021-10-28 2021-10-28 ambulatory STLMLC STLMLC [id number] Common 00:00:00 00:00:00 [facility] 2021-10-04 2021-10-04 Imm/Inj Vaccine, Ang Db [facility] 1. 2.840.114 [id number] Univers 16:00:00 16:28:24 Visit Hanna Fiona ASYA [id number] itMissy 4.2.7.2.686 Shine as MARIA E?BLEA [phone] [address] MEDICAL OFFICE BUILDING 2021-10-04 2021-10-04 Outpatient R [facility] [id number] Univers 16:00:00 16:00:00 [id number] [facility] 2021-10-04 2021-10-04 [facility] [id number] Univers 16:00:00 16:00:00 [facility] 2021-09-28 2021-09-28 ambulatory STLMLC STLMLC [id number] Common 00:00:00 00:00:00 [facility] 2021-09-16 2021-09-16 Emergency [facility] [id number] Univers 11:39:00 13:56:00 ELIF [facility] 2021-09-16 2021-09-16 Emergency [facility] 1.2.840.114 [id number] Univers 11:39:00 13:56:00 Elif SERRANO [id number] itOrtega 4.2.7.2.686 [phone] [address] 2021-09-11 2021-09-11 ambulatory STLMLC STLMLC [id number] Common 00:00:00 00:00:00 [facility] 2021-09-11 2021-09-11 ambulatory STLMLC STLMLC [id number] Common 00:00:00 00:00:00 [facility] 2021-08-14 2021-08-14 ambulatory STLMLC STLMLC [id number] Common 00:00:00 00:00:00 [facility] 2021-07-26 2021-07-26 Outpatient STLMLC STLMLC [id number] Common 00:00:00 00:00:00 [facility] 2021-06-29 2021-06-29 Outpatient STLMLC STLMLC [id number] Common 00:00:00 00:00:00 [facility] 2021-06-14 2021-06-14 Outpatient STLMLC STLMLC [id number] Common 00:00:00 00:00:00 [facility] 2021-04-20 2021-04-20 Outpatient STLMLC STLMLC [id number] Common 00:00:00 00:00:00 [facility] 2021-04-12 2021-04-12 Outpatient STLMLC STLMLC [id number] Common 00:00:00 00:00:00 [facility] 2021-04-04 2021-04-04 Outpatient STLMLC STLMLC [id number] Common 00:00:00 00:00:00 [facility] 2021-04-03 2021-04-03 Outpatient STLMLC STLMLC [id number] Common 00:00:00 00:00:00 [facility] 2021-02-20 2021-02-20 Outpatient STLMLC STLMLC [id number] Common 00:00:00 00:00:00 [facility] 2021-01-30 2021-01-30 Outpatient STLMLC STLMLC [id number] Common 00:00:00 00:00:00 [facility] 2020-12-19 2020-12-19 Outpatient STLMLC STLMLC [id number] Common 00:00:00 00:00:00 [facility] 2020-11-14 2020-11-14 Outpatient Homer NASSAR [facility] [id number] Univers 14:30:00 14:30:00 PORTER [id number] [facility] 2020-11-14 2020-11-14 Outpatient Homer NASSAR [facility] [id number] Univers 14:30:00 14:30:00 PORTER [facility] 2020-10-17 2020-10-17 Outpatient Homer NASSAR [facility] [id number] Univers 14:20:00 14:20:00 PORTER [id number] [facility] 2020-10-17 2020-10-17 Outpatient Homer NASSAR [facility] [id number] Univers 14:20:00 14:20:00 PORTER [facility] 2020-10-17 2020-10-17 [facility] [id number] Univers 14:20:00 14:20:00 PORTER [facility] 2020-07-18 2020-07-18 [facility] 1.2.840.114 [id number] [facility] 00:00:00 00:00:00 Irma A [facility] [id number] ity of [place] 4.2.7.2.686 Shine as Professio [phone] [address] Office [facility] 2020-07-18 2020-07-18 [facility] 1.2.840.114 [id number] 00:00:00 00:00:00 [facility] A [facility] [id number] [place] 4.2.7.2.686 Professio [phone] [place] [address] [address] 2020-06-03 2020-06-03 [facility] 1.2.840.114 [id number] [facility] 00:00:00 00:00:00 Irma A [facility] [id number] ity of [place] 4.2.7.2.686 Shine as Professio [phone] [address] Office [facility] 2020-06-03 2020-06-03 [facility] 1.2.840.114 [id number] 00:00:00 00:00:00 Irma A [facility] 350.1.13.10 [place] 4.2.7.2.686 Professio [phone] [place] [address] [address] [facility] 2020-05-24 2020-05-24 [facility] [id number] Common 11:00:00 11:00:00 t [facility] 2020-05-17 2020-05-17 Outpatient Roxanne Roxannet [id number] Common 09:08:00 09:08:00 t [facility] 2020-05-02 2020-05-02 Outpatient Ramseyprudencio Roxannet [id number] Common 10:30:00 10:30:00 t [facility] Sp[facility] 2020-03-03 2020-03-03 Refill [place], [facility] 1.2.840.114 [id number] Univers 00:00:00 00:00:00 Irma A [place] [id number] [place]y [place] [phone] [address] 2020-03-03 2020-03-03 [facility] [place], [facility] 1.2.840.114 [id number] 00:00:00 00:00:00 Irma A [place] 350.1.13.10 [place] 4.2.7.2.[address] Professio [phone] [address] 2020-03-01 2020-03-01 Telephone [facility] 1.2.840.114 [id number] Univers 00:00:00 00:00:00 Irma A [place] [id number] [place] [phone] [address] 2020-03-01 2020-03-01 Telephone [facility] 1.2.840.114 [id number] 00:00:00 00:00:00 Irma A [place] 350.1.13.10 [place] 4.2.7.2.686 Professio [phone] [address] 2020-02-26 2020-02-26 [facility] 1.2.840.114 [id number] Univers 00:00:00 00:00:00 Irma A [place] [id number] [place] [phone] [facility] 231 [facility] 2020-02-26 2020-02-26 Refill [place], [facility] 1.2.840.114 [id number] 00:00:00 00:00:00 Irma A [place] 350.1.13.10 [place] 4.2.7.2.686 Professio [phone] [address] 2019-12-26 2019-12-26 Refill [place], [facility] 1.2.840.114 [id number] [facility] 00:00:00 00:00:00 Irma A [place] [id number] [place].2.[place] [phone] [address] 2019-12-26 2019-12-26 [facility] 1.2.840.114 [id number] 00:00:00 00:00:00 Irma A [place] 350.1.13.10 [place] 4.2.7.2.686 Professio [phone] [address] 2019-12-08 2019-12-08 Telephone Dex Fair [facility] 1.2.840.114 [id number] [facility] 00:00:00 00:00:00 W SPECIALTY [id number] [place] [phone] [address] 2019-12-08 2019-12-08 Telephone Dex Fair [facility] 1.2.840.114 [id number] 00:00:00 00:00:00 W SPECIALTY 350.1.13.10 [place] 4.2.7.2.686 [place] [phone] [facility] 2019-12-01 2019-12-01 Telephone Jessica [facility] [id number] [id number] Univers 00:00:00 00:00:00 Rosario SPECIALTY [id number] [place] [phone] [address] 2019-12-01 2019-12-01 Refill Aditi [facility] 1.2.840.114 [id number] [facility] 00:00:00 00:00:00 Irma Serrano [id number] [place] [phone] [address] 2019-12-01 2019-12-01 Telephone Jessica [facility] [id number] [id number] 00:00:00 00:00:00 Rosario SPECIALTY 350.1.13.10 [place] 4.2.7.2.686 [place] [phone] [facility] 2019-12-01 2019-12-01 Refill Aditi [facility] 1.2.840.114 [id number] 00:00:00 00:00:00 Irma Serrano 350.1.13.10 [place] 4.2.7.2.686 Professio [phone] [address] 2019-11-26 2019-11-26 Refill Aditi [facility] 1.2.840.114 [id number] [facility] 00:00:00 00:00:00 Irma Serrano 350.1.13.10 [place] [phone] [address] 2019-11-09 2019-11-09 Office Jessica [facility] 1.2.840.114 [id number] 12:48:32 13:48:32 Visit Rosario SPECIALTY 350.1.13.10 [place] 4.2.7.2.686 [place] [phone] [facility] 2019-11-09 2019-11-09 Office Rosario Lopez [facility] 1.2.840. 114 [id number] [facility] 12:48:32 13:48:32 Visit Dex Fair SPECIALTY 350.1.13.10 ity of [place] [phone] [address] 2019-11-09 2019-11-09 Orders Doctor AUBRIE 1.2.840.114 [id number] 00:00:00 00:00:00 Only Unassigned, [place] 350.1.13.10 [facility] 4.2.7.2.686 [phone] 009 2019-11-09 2019-11-09 Orders Doctor AUBRIE 1.2.840.114 [id number] [facility] 00:00:00 00:00:00 Only Unassigned, [place] 350.1.13.10 ity [place] [facility] 4.2.7.2.686 Shine as [phone] [address] 2019-05-14 2019-05-14 Nurse Nurse, [facility] 1.2.840.114 [id number] [facility] 15:28:41 15:43:41 Visit Irma [place] 350.1. 13.10 [place] [phone] Sc dical nal 044 [facility] 2019-05-14 2019-05-14 Letter Aditi [facility] 1.2.840.114 [id number] [facility] 00:00:00 00:00:00 (Out) Irma Serrano 350.1.13.10 [place] [phone] Sc vignesh [facility] 231 [facility] 2019-05-12 2019-05-12 Nurse Nurse, [facility] 1.2.840.114 [id number] [facility] 13:01:21 15:09:23 Visit Irma [place] 350.1. 13.10 [place]2.[place] [phone] Sc dical nal 044 [facility] 2019-03-26 2019-03-26 [facility] [id number] Common 08:00:00 08:00:00 t Bone Bone and Spiri t and [facility] 2019-01-12 2019-01-12 [facility] [id number] Common 11:00:00 11:00:00 t Bone Bone and Spiri t and Joint [facility] Results Test Description Test Time Test Comments Results Result Comments Source HEMOGLOBIN A1C 2017-05-16 21:48:00 Test Item Value Reference Range Interpretation Comme nts HEMOGLOBIN A1C (BEAKER) (test code = 368) 6.2 % 4.3-6.1 H [id number] 07:10:00 Test Item Value Reference Range Interpretation Comments MAGNESIUM (BEAKER) (test code = 1.9 mg/dL 1.6-2.6 627) BASIC METABOLIC [id number] 07:10:00 Test Item Value Reference Range Interpretation [...] WBC 0-0 (BEAKER) (test code = 413) COMPREHENSIVE METABOLIC [id number] 05:45:00 Test Item Value Reference Range Interpretation [...] S NOT APPLICABLE FOR DIALYSIS PATIEN TS. [id number] 05:45:00 Test Item Value Reference Range Interpretation Comments MAGNESIUM (BEAKER) 2.3 mg/dL 1.6-2.6 Specimen moderately (test code = 627) hemolyzed [id number] 11:50:00 Test Item Value Reference Range Interpretation Comments RPR SCREEN (BEAKER) (test code = Nonreactive Nonreactive 420) BASIC METABOLIC [id number] 06:28:00 Test Item Value Reference Range Interpretation [...] NOT APPLICABLE FOR DIALYSIS PATIEN TS. FastingLIPID [id number] 06:28:00 Test Item Value Reference Range Interpretation Comments TRIGLYCERIDES (BEAKER) 223 mg/dL Speci men slightly (test code = 540) hemolyzed CHOLESTEROL (BEAKER) 176 mg/dL Specime n slightly (test code = 631) hemolyzed HDL CHOLESTEROL (BEAKER) 42 mg/dL (test code = 976) LDL CHOLESTEROL 89 mg/dL CALCULATED (BEAKER) (test code = 633) Triglyceride Reference Range: Low Risk <150 Borderline 150-199 High Risk 200- 499 Very High Risk >=500Cholesterol Reference Range: Low Risk <200 Borderline 200-239 High Risk >240HDL Cholesterol Reference Range: Low Risk >=60 High Risk <40LDL Cholesterol Reference Range: Optimal <100 Near Optimal 100-129 Borderline 130-159 High 160-189 Very High >=190 Fasting VITAMIN B12 AND [id number] 04:10:00 Test Item Value Reference Range Interpretation Comments VITAMIN B12 (BEAKER) (test code = 514 pg/mL 213-816 774) FOLATE (BEAKER) (test code = 362) > ng/mL >=7.0 Effective 08/31/2014: Folate Reference Range ChangeNew: >=7.0 Previous: >=5.4TSH/FREE T4 IF [id number] 02:52:00 Test Item Value Reference Range Interpretation Comments THYROID STIMULATING HORMONE 2.55 uIU/mL 0.35-4.94 (BEAKER) (test code = 772) SEDIMENTATION [id number] 01:10:00 Test Item Value Reference Range Interpretation Comments SEDIMENTATION RATE, ERYTHROCYTE 6 mm/HR 0-40 (BEAKER) (test code = 766) [id number] 00:35:00 Test Item Value Reference Range Interpretation Comments HOMOCYSTEINE (BEAKER) (test code = 8.5 umol/L 5.1-15.4 642) URINALYSIS W/ [id number] 00:30:00 Test Item Value Reference Range Interpretation [...] (test code = Urine, Voided 2795) TROPONIN [id number] 00:23:00 Test Item Value Reference Range Interpretation Comments TROPONIN I (BEAKER) (test code = 0.01 ng/mL 0.00-0.03 397) Effective 08/31/2014: Reference Range ChangeNew: 0.00-0.03 Previous 0.00- 0.15Troponin I (TnI) levelsmust be interpreted in the context of the [...] failure, acidosis, acute neurological disease, and persistent tachyarrhythmia.HEPATIC FUNCTION [id number] 00:17:00 Test Item Value Reference Range Interpretation [...] = 31 U/L 6-55 347) BASIC METABOLIC [id number] 00:17:00 Test Item Value Reference Range Interpretation [...] NOT APPLICABLE FOR DIALYSIS PATIEN TS. C-REACTIVE [id number] 00:17:00 Test Item Value Reference Range Interpretation Comments C-REACTIVE PROTEIN (BEAKER) (test 0.55 mg/dL 0.00-0.50 H code = 676) PROTHROMBIN [id number] 00:07:00 Test Item Value Reference Range Interpretation Comments PROTIME (BEAKER) (test code = 15.6 seconds 11.7-14.7 H 759) INR (BEAKER) (test code = 370) 1.3 <=5.9 RECOMMENDED COUMADIN/WARFARIN INR THERAPY RANGESSTANDARD DOSE: 2.0 - 3.0 Includes: PROPHYLAXIS for venous thrombosis, systemic embolization; TREATMENT for venous thrombosis and/or pulmonary embolus.HIGH RISK: Target INR is 2.5-3.5 for patients with mechanical heart valves.CBC W/PLT COUNT & AUTO [id number] 00:01:00 Test Item Value Reference Range Interpretation [...] % 0-1 PERCENT (BEAKER) (test code = 0151)
[2022-05-26] MEDS ORDERED: TETANUS & DIPHTHERIA TOX,ADULT 0.5 ML VIAL ONE (05:18)
--- NOTE | 2022-05-26 05:28 | EDPHYS ---
Physician Documentation [facility] Name: Irene Bauer Age: 81 yrs Sex: Female : 1940 Arrival Date: 05/26/2022 Time: 04:17 Bed 14 Private MD: ED Physician Burt Martinez HPI: 05/26 04:38 This 81 yrs old Female presents to ER via Unassigned with complaints of fall. ms3 04:38 The patient or guardian reports abrasion, injury, swelling. The complaints affect the ms3 forehead. Context of injury: The problem was sustained at [place]. Onset: The symptoms/episode began/occurred just prior to arrival. Associated signs and symptoms: Loss of consciousness: This patient did not experience any loss of consciousness. Pertinent negatives: the patient has not experienced a loss of conciousness, headache, neck pain, vomiting. Severity of symptoms: At their worst the symptoms were very mild, in the emergency department the symptoms are unchanged. Historical: - Allergies: 05:06 NKA; sm5 - Home Meds: 05:06 alphagan 5 ml nightly [Active]; atorvastatin 40 mg Oral tab 1 tab once daily [Active]; sm5 famotidine 40 mg Oral tab 1 tab once daily [Active]; furosemide 40 mg Oral tab 2 tabs 2 times per day [Active]; gabapentin 100 mg Oral tab daily [Active]; metolazone 2.5 mg Oral tab 1 tab once a week [Active]; metoprolol tartrate 50 mg Oral tab 1 tab 2 times per day [Active]; Xarelto 15 mg Oral tab 1 tab once daily [Active]; - PMHx: 05:06 Atrial Fib; Cataracts; CHF; NOSE BLEEDS; TIA; Osteoporosis; Osteopenia; osteoarthritis sm5 of spine; Hypertension; Glaucoma; colon cancer; - PSHx: 05:06 spine; Total abdominal hysterectomy; sm5 - Immunization history:: Client reports receiving the 2nd dose of the Covid vaccine. - Social history:: Smoking status: Patient denies any tobacco usage or history of. ROS: 04:38 Constitutional: Negative for fever, and chills. Neck: Negative for injury, pain, and ms3 swelling, Cardiovascular: Negative for chest pain, and palpitations. Respiratory: Negative for shortness of breath, cough, wheezing, and pleuritic chest pain, Abdomen/GI: Negative for abdominal pain, nausea, vomiting, diarrhea, and constipation, MS/Extremity: Negative for injury and deformity, Skin: forehead contusion Neuro: Negative for headache, weakness, numbness, tingling. Psych: Negative for depression, anxiety, suicide ideation, homicidal ideation, and hallucinations. 04:38 All other systems are negative. Exam: 04:38 Constitutional: This is a well developed, well nourished patient who is awake, alert, ms3 and in no acute distress. 04:38 Neck: Trachea midline, no cervical lymphadenopathy. Supple, full range of motion without nuchal rigidity, or vertebral point tenderness. No Meningismus. Chest/axilla: Normal chest wall appearance and motion. Nontender with no deformity. Cardiovascular: Regular rate and rhythm with a normal S1 and S2. No gallops, murmurs, or rubs. Normal PMI, no JVD. No pulse deficits. Respiratory: Lungs have equal breath sounds bilaterally, clear to auscultation and percussion. No rales, rhonchi or wheezes noted. No increased work of breathing, no retractions or nasal flaring. Abdomen/GI: Soft, non-tender, with normal bowel sounds. No distension or tympany. No guarding or rebound. No evidence of tenderness throughout. Skin: Warm, dry with normal turgor. Normal color with no rashes, no lesions, and no evidence of cellulitis. MS/ Extremity: Pulses equal, no cyanosis. Neurovascular intact. Full, normal range of motion. Psych: Awake, alert, with orientation to person, place and time. Behavior, mood, and affect are within normal limits. 04:38 Head/face: Noted is contusion, that is superficial, of the forehead. Vital Signs: 05:03 BP 130 / 69; Pulse 92; Resp 18; Temp 97(TE); Pulse Ox 99% on R/A; Weight 76.2 kg; sm5 Height 5 ft. 5 in. (165.10 cm); Pain 0/10; 05:03 Body Mass Index 27.96 (76.20 kg, 165.10 cm) 5 MDM: 04:17 Patient medically screened. ms3 04:38 Differential diagnosis: Contusion of head, Hematoma on head, Intracranial bleed- ms3 Concussion without LOC. 05:37 Data reviewed: vital signs, nurses notes, radiologic studies, CT scan, and as a result, ms3 I will discharge patient. Counseling: I had a detailed discussion with the patient and/or guardian regarding: the historical points, exam findings, and any diagnostic results supporting the discharge/admit diagnosis, radiology results, the need for outpatient follow up, to return to the emergency department if symptoms worsen or persist or if there are any questions or concerns that arise at home. 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 Exp: tw5 02/17/2024. Lot #: [id number]. } Route: IM; Site: left deltoid; 05:10 Follow up: Response: (VIS) Vaccine information sheet provided today. Questions and/or tw5 concerns addressed. VIS edition date: May 19, 2021. Disposition Summary: 05/26/22 05:28 Discharge Ordered Location: Home ms3 Condition: Stable ms3 Diagnosis - Contusion of unspecified part of head ms3 - Fall (on)(from) incline ms3 - Abrasion of other part of head ms3 Followup: ms3 - With: Private Physician - When: 2 - 3 days - Reason: Recheck today's complaints Discharge Instructions: - Discharge Summary Sheet ms3 - Abrasion ms3 - Contusion ms3 - Fall Prevention in the Home, Adult ms3 Forms: - Medication Reconciliation Form ms3 - SBAR form mw2 - Thank You Letter ms3 - Antibiotic Education ms3 - Prescription Opioid Use ms3 Signatures: Dispatcher [employer] EDMS Burt Martinez DO DO ms3 Linnette Sharma tw5 Shira Chavarria, RN RN sm5
--- NOTE | 2022-05-26 05:28 | ER ---
Nurse's Notes [facility] Name: Irene Bauer Age: 81 yrs Sex: Female : 1940 Arrival Date: 05/26/2022 Time: 04:17 Bed 14 Private MD: Diagnosis: Contusion of unspecified part of head;Fall (on)(from) incline;Abrasion of other part of head Presentation: 05/26 05:03 Chief complaint: EMS states: pt was leaning over in bed trying to get her water when 5 she fell out and hit her head on nightstand. denies LOC, pt on blood thinners. Coronavirus screen: Vaccine status: Patient reports receiving the 2nd dose of the covid vaccine. Ebola Screen: No symptoms or risks identified at this time. Initial Sepsis Screen: Does the patient meet any 2 criteria? No. Patient's initial sepsis screen is negative. Does the patient have a suspected source of infection? No. Patient's initial sepsis screen is negative. Risk Assessment: Do you want to hurt yourself or someone else? Patient reports no desire to harm self or others. Onset of symptoms was May 26, 2022. 05:03 Method Of Arrival: EMS: [facility] 05:03 Acuity: ISELA 4 5 Triage Assessment: 05:06 General: Appears in no apparent distress. Behavior is cooperative. Pain: Denies pain. 5 Neuro: Level of Consciousness is awake, alert, obeys commands, Oriented to person, place, time, situation. Cardiovascular: Capillary refill < 3 seconds Patient's skin is warm and dry. Respiratory: Airway is patent Trachea midline Respiratory effort is even, unlabored. Injury Description: Bruise sustained to forehead. Historical: - Allergies: 05:06 NKA; sm5 - Home Meds: 05:06 alphagan 5 ml nightly [Active]; atorvastatin 40 mg Oral tab 1 tab once daily [Active]; sm5 famotidine 40 mg Oral tab 1 tab once daily [Active]; furosemide 40 mg Oral tab 2 tabs 2 times per day [Active]; gabapentin 100 mg Oral tab daily [Active]; metolazone 2.5 mg Oral tab 1 tab once a week [Active]; metoprolol tartrate 50 mg Oral tab 1 tab 2 times per day [Active]; Xarelto 15 mg Oral tab 1 tab once daily [Active]; - PMHx: 05:06 Atrial Fib; Cataracts; CHF; NOSE BLEEDS; TIA; Osteoporosis; Osteopenia; osteoarthritis sm5 of spine; Hypertension; Glaucoma; colon cancer; - PSHx: 05:06 spine; Total abdominal hysterectomy; sm5 - Immunization history:: Client reports receiving the 2nd dose of the Covid vaccine. - Social history:: Smoking status: Patient denies any tobacco usage or history of. Screenin:07 Abuse screen: Denies threats or abuse. Denies injuries from another. Nutritional sm5 screening: No deficits noted. Tuberculosis screening: No symptoms or risk factors identified. Fall Risk Fall in past 12 months (25 points). Total Puri Fall Scale indicates Low Risk Score (25-44 pts). Fall prevention measures have been instituted. Side Rails Up X 2 Placed close to Nursing Station Frequent Obs/Assesments occuring As available Patient and Family Educated on Fall Prevention Program and strategies. Assessment: 05:15 Reassessment: see triage assessment. 5 06:17 Reassessment: No changes from previously documented assessment. Patient and/or family 5 updated on plan of care and expected duration. Pain level reassessed. Vital Signs: 05:03 BP 130 / 69; Pulse 92; Resp 18; Temp 97(TE); Pulse Ox 99% on R/A; Weight 76.2 kg; sm5 Height 5 ft. 5 in. (165.10 cm); Pain 0/10; 05:03 Body Mass Index 27.96 (76.20 kg, 165.10 cm) 5 ED Course: 04:17 Patient arrived in ED. ms3 04:17 Burt Martinez DO is Attending Physician. ms3 04:44 CT Head C Spine In Process Unspecified. EDMS 05:03 Shira Chavarria, RONEN is Primary Nurse. 5 05:06 Triage completed. sm5 05:06 Arm band placed on right wrist. sm5 05:07 Patient has correct armband on for positive identification. Bed in low position. Call 5 light in reach. Side rails up X2. 06:17 No provider procedures requiring assistance completed. sm5 06:18 Patient did not have IV access during this emergency room visit. 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 Exp: tw5 02/17/2024. Lot #: [id number]. } Route: IM; Site: left deltoid; 05:10 Follow up: Response: (VIS) Vaccine information sheet provided today. Questions and/or tw5 concerns addressed. VIS edition date: May 19, 2021. Medication: 05:07 VIS not applicable for this client. 5 05:10 Vaccine Information Statement (VIS) provided today. Questions and/or concerns tw5 addressed. VIS edition date: May 26, 2022. Outcome: 05:28 Discharge ordered by . ms3 06:18 [facility] 06:18 Condition: stable 06:18 Discharge instructions given to patient, Instructed on discharge instructions, follow up and referral plans. Demonstrated understanding of instructions, follow-up care. 06:18 Patient left the ED. sm5 Signatures: Dispatcher [employer] EDMS Burt Martinez DO DO ms3 Jelena Sharmafany tw5 Shira Chavarria, RN RN 5
[2022-05-26 06:24] VITALS: BP 130/69; TEMP 97; O2SAT 99
--- NOTE | 2022-05-26 20:55 | RAD REPORT ---
EXAM DESCRIPTION: CT - Head C Spine Mpr Wo Con - 05/26/2022 6:50 am CLINICAL HISTORY: Fall, L forehead contusion COMPARISON: None available TECHNIQUE: Axial CT of the head obtained from the skull apex to the skull base without contrast. Axi al CT images of the cervical spine obtained from the skull base through the thoracic inlet. Sagittal and coronal reformatted images available. This exam was performed according to our departmental dose- optimization program, which includes automated exposure control, adjustment of the mA and/or kV accor ding to patient size and/or use of iterative reconstruction technique. FINDINGS: CT head: No acute intracranial hemorrhage identified. No mass, mass effect, shift of the midline, abnormal ext ra-axial fluid collection or CT evidence of acute ischemic change identified. The ventricular system and sulcal spaces are mildly enlarged compatible with mild cerebral atrophy. Scattered areas of hyp odensity throughout the supratentorial white matter are nonspecific and may be related to chronic sma ll vessel ischemic change. The visualized paranasal sinuses and mastoid air cells are well aerated. No skull fracture identifi ed. Visualized orbits and globes are unremarkable. Atherosclerotic calcification of the intracranial internal carotid and vertebral arteries. Contusion in the left frontal scalp soft tissues. Cervical CT: Straightening of the cervical lordosis may be secondary to patient positioning. The atlantoaxial, a tlantodental, and occipitoatlantal intervals are preserved. No fracture identified. Vertebral body height preserved. Prevertebral soft tissues are unremarkable. Moderate to severe multilevel loss of intervertebral disc height with endplate spondylosis, facet art hropathy, and uncovertebral spurring. Degenerative anterolisthesis measuring 3 mm of C4 over C5. Dege nerative erosive changes of the posterior odontoid. Visualized skull base is intact. No fracture of the visualized facial bones. Visualized mastoid air c ells and paranasal sinuses are well aerated. Visualized thyroid is unremarkable. No cervical lymphadenopathy. No pneumothorax in the visualized lung apices. IMPRESSION: 1. No acute intracranial abnormality. 2. No acute fracture or subluxation of the cervical spine. 3. Multilevel degenerative change of the cervical spine. Electronically signed by: Aamir Nelson 05/26/2022 5:18 AM CDT Due to temporary technical issues with the PACS/Fluency reporting system, reports are being signed by the in house radiologists without review as a courtesy to insure prompt reporting. The interpreting radiologist is fully responsible for the content of the report.
== END 2022-05-26 06:18 | disposition home or self-care (01) ==
LOC: ER 04:13
DX: S00.81XA Abrasion of other part of head, initial encounter (principal); S00.83XA Contusion of other part of head, initial encounter; W10.2XXA Fall (on)(from) incline, initial encounter; Z23 Encounter for immunization; I48.91 Unspecified atrial fibrillation; Z79.01 Long term (current) use of anticoagulants; I10 Essential (primary) hypertension; I50.9 Heart failure, unspecified
CPT/HCPCS: 70450; 72125; 90471; 90714; 99283

== ENCOUNTER 2022-09-18 12:03 | Inpatient (IN) | payer OTHER ==
[2022-09-18 12:48] LABS: SARS-CoV-2 Antigen Rapid Res Negative (Negative)
--- OUTSIDE RECORDS SUMMARY | 2022-09-18 13:16 | XMS REPORT | Continuity of Care Document ---
:1940 Author Organization [facility] t Address [address] [place] [address] Care Team Providers Name Role Phone Mauri Banks MD Primary Care Physician Mauri Banks Attending Clinician Unavailable Russ Allen MD Attending Clinician RUSS ALLEN Attending Clinician Unavailable Vaccine, [facility] Attending Clinician Unavailable Félix Garcia DO Attending Clinician FÉLIX GARCIA Attending Clinician Unavailable Vaccine, Ang Db Cbc Fam Attending Clinician Unavailable Fiona Ferreira MD Attending Clinician FIONA FERREIRA Attending Clinician Unavailable ELIF ANDINO Attending Clinician Unavailable Elif Andino DO Attending Clinician PORTER NASSAR Attending Clinician Unavailable Aditi LEYVA, Irma Reed Attending Clinician [phone] Dex Fair MD Attending Clinician Rosario Lopez Attending Clinician Unavailable Doctor Unassigned, [place] [facility] Attending Clinician Unavailable Nurse, [facility] Perico Attending Clinician Unavailable YAKOV GARCIA Attending Clinician Unavailable RUSS ALLEN Admitting Clinician Unavailable RADHA, YAKOV Admitting Clinician Unavailable Payers Payer Name Policy Type Policy Number Effective Date Expiration Date S ource AETNA MEDICARE 53 [id number] 2021 Common S pirit 00:00:00 - [facility] AETNA MANAGED [id number] 2020 MEDICARE 00:00:00 PPO-RENEE AETNA MEDICARE C1 [id number] Common Spi rit PPO [facility] AETNA MEDICARE C1 [id number] Common Spi rit PPO [facility] AETNA MEDICARE C1 [id number] Common Spi rit PPO [facility] AETNA MEDICARE C1 [id number] Common Spi rit [facility] Problems Condition Condition Condition Status Onset Resolution Last Treating Co mments Source Name Details Category Date Date Treatment Clinician Date Cerebrovas Cerebrovas Disease Active C [facility]ular 05-15 [facility] accident accident 00:00: Medica l (CVA), (CVA), 00 Center unspecifie unspecifie d d mechanism mechanism Stroke Stroke Disease Active [facility] 00:00: Medical 00 Center CHF CHF Disease Active Univers (congestiv (congestiv it y of e heart e heart [place] failure) failure) Medica l Branch Atrial Atrial Disease Active Overview: Univer s fibrillati fibrillati Formattin ity of on on g of this [place] note Medical might be Branch different from the original. on Xarelto HTN HTN Disease Active Univers (hypertens (hypertens it y of ion), ion), [place] benign benign [facility] HLD HLD Disease Active Univers (hyperlipi (hyperlipi it y of demia) demia) [facility] Osteoarthr Osteoarthr Disease Active U nivers itis itis ity of involving involving Shinea s multiple multiple Medica l joints on joints on Bran ch both sides both sides of body of body Osteoarthr Osteoarthr Disease Active U nivers itis [place] multiple multiple Medica l joints on joints on Bran ch both sides both sides of body of body [id number] Recurrent Problem Com mon UTI Spirit [facility] [id number] Other Problem Common chronic [facility] pain [facility] [id number] Pain, Problem Common joint, [facility] knee, [facility] right [facility] [id number] Primary Problem Comm on osteoarthr Spirit itis of [facility] right knee [facility] [id number] Arthritis Problem Co mmon [id number] of knee, [facility] left [facility] [id number] Unilateral Problem C ommon primary Spirit osteoarthr - [facility] itis, left knee [facility] Allergies, Adverse Reactions, Alerts Allergy Allergy Status Severity Reaction(s) Onset Inactive Treating Comm ents Source Name Type Date Date Clinician NO KNOWN Drug Active Univers ALLERGIE Class ity of [facility] [place] Social History Social Habit Start Date Stop Date Quantity Comments Source Exposure to Not sure University of SARS-CoV-2 [place] [facility] (event) Branch History of Common Spirit - Tobacco Use [facility] Alcohol intake 2021-09-16 2021-09-16 Current [facility] 00:00:00 00:00:00 non-drinker of [facility] alcohol (finding) Branch Tobacco use and 2018-12-03 2018-12-03 Smokeless tobacco Un iversity of exposure 00:00:00 00:00:00 non-user [facility] Sex Ass[birth year] At [birth year] [facility] 00:00:00 00:00:00 Medical Center Smoking Status Start Date Stop Date Source Never Smoker [facility] Medications Ordered Filled Start Stop Current Ordering Indication Dosage Frequency Signature Comments Components Source Medication Medication Date Date Medication? Clinician (SIG) Name Name Bactrijenny MOORE Bactrim DS 2021- No 1{table BID Bactrim DS 800-160 MG 800-160 MG 01-29 t} 800-160 MG 00:00: 00:00 00 :00 Bactrim DS Bactrim DS 2021- No 1{table BID Bactrim DS 800-160 MG 800-160 MG 01-29 t} 800-160 MG 00:00: 00:00 00 :00 Bactrim DS Bactrim DS 2021- No 1{table BID Bactrim DS 800-160 MG 800-160 MG 10-28 t} 800-160 MG 00:00: 00:00 00 :00 Bactrim DS Bactrim DS 2021- No 1{table BID Bactrim DS 800-160 MG 800-160 MG 10-28 t} 800-160 MG 00:00: 00:00 00 :00 cefpodoxime 2020-10- No [id number] 100mg Take 1 Univers 100 mg 2- 12-12 tablet by ity of tablet 00:00: 05:59 mouth 2 [place] 00 :00 (two) Medical times Branch daily for 7 days. Hyalgan 20 Hyalgan 20 2020-0 No 20mg C ommon mg mg 7-15 Spirit 00:00: - CHI 00 [facility] Hyalgan 20 Hyalgan 20 2020-0 No 20mg C ommon mg mg 7-15 Spirit 00:00: - CHI 00 [facility] Hyalgan 20 Hyalgan 20 2020-0 No 20mg C ommon mg mg 7-15 Spirit 00:00: - CHI 00 [facility] Hyalgan 20 Hyalgan 20 2020-0 No 20mg C ommon mg mg 7-15 Spirit 00:00: - CHI 00 [facility] Hyalgan 20 Hyalgan 20 2020-0 No 20mg C ommon mg mg 7-15 Spirit 00:00: - CHI 00 [facility] Hyalgan 20 Hyalgan 20 2020-0 No 20mg C ommon mg mg 7-15 Spirit 00:00: - CHI 00 [facility] Hyalgan 20 Hyalgan 20 2020-0 No 20mg C ommon mg mg 7-15 Spirit 00:00: - CHI 00 [facility] Hyalgan 20 Hyalgan 20 2020-0 No 20mg C ommon mg mg 04-27 Spirit 00:00: - CHI [facility] Hyalgan 20 Hyalgan 20 2020-0 No 20mg C ommon mg mg 04-27 Spirit 00:00: - CHI [facility] Hyalgan 20 Hyalgan 20 2020-0 No 20mg C ommon mg mg 04-27 Spirit 00:00: - CHI [facility] Hyalgan 20 Hyalgan 20 2020-0 No 20mg C ommon mg mg 04-27 Spirit 00:00: - CHI [facility] Hyalgan 20 Hyalgan 20 2020-0 No 20mg C ommon mg mg 04-20 Spirit 00:00: - CHI [facility] Hyalgan 20 Hyalgan 20 2020-0 No 20mg C ommon mg mg 04-20 Spirit 00:00: - CHI [facility] Hyalgan 20 Hyalgan 20 2020-0 No 20mg C ommon mg mg 04-20 Spirit 00:00: - CHI [facility] Hyalgan 20 Hyalgan 20 2020-0 No 20mg C ommon mg mg 04-20 Spirit 00:00: - CHI [facility] Hyalgan 20 Hyalgan 20 2020-0 No 20mg C ommon mg mg 04-20 Spirit 00:00: - CHI [facility] Hyalgan 20 Hyalgan 20 2020-0 No 20mg C ommon mg mg 04-20 Spirit 00:00: - CHI [facility] Hyalgan 20 Hyalgan 20 2020-0 No 20mg C ommon mg mg 04-20 Spirit 00:00: - CHI [facility] Hyalgan 20 Hyalgan 20 1-0 No 20mg C ommon mg mg 04-20 Spirit 00:00: - CHI [facility] Hyalgan 20 Hyalgan 20 1-0 No 20mg C ommon mg mg 04-20 Spirit 00:00: - CHI [facility] Hyalgan 20 Hyalgan 20 1-0 No 20mg C ommon mg mg 04-20 Spirit 00:00: - CHI [facility] Hyalgan 20 Hyalgan 20 1-0 No 20mg C ommon mg mg 7-08 Spirit 00:00: - CHI 00 [facility] Kenalog Kenalog 2020-0 No 40mg Common (Triamcinol (Triamcinol 6-30 S pirit one) one) 00:00: - CHI 00 [facility] Bupivicaine Bupivicaine 2020-0 No Common [place] 6-30 Spirit 00:00: - CHI 00 [facility] Hyalgan 20 Hyalgan 20 2020-0 No 20mg C ommon mg mg 6-30 Spirit 00:00: - CHI 00 [facility] Kenalog Kenalog 2020-0 No 40mg Common (Triamcinol (Triamcinol 6-30 S pirit one) one) 00:00: - CHI 00 [facility] Bupivicaine Bupivicaine 2020-0 No Common [place] 6-30 Spirit 00:00: - CHI 00 [facility] Hyalgan 20 Hyalgan 20 2020-0 No 20mg C ommon mg mg 6-30 Spirit 00:00: - CHI 00 [facility] Kenalog Kenalog 2020-0 No 40mg Common (Triamcinol (Triamcinol 6-30 S pirit one) one) 00:00: - CHI 00 [facility] Bupivicaine Bupivicaine 2020-0 No 2.5mg Common [place] 6-30 Spirit 00:00: - CHI 00 [facility] Hyalgan 20 Hyalgan 20 2020-0 No 20mg C ommon mg mg 6-30 Spirit 00:00: - CHI 00 [facility] Kenalog Kenalog 2020-0 No 40mg Common (Triamcinol (Triamcinol 6-30 S pirit one) one) 00:00: - CHI 00 [facility] Bupivicaine Bupivicaine 2020-0 No 2.5mg Common [place] 6-30 Spirit 00:00: - CHI 00 [facility] Hyalgan 20 Hyalgan 20 2020-0 No 20mg C ommon mg mg 6-30 Spirit 00:00: - CHI 00 [facility] Kenalog Kenalog 2020-0 No 40mg Common (Triamcinol (Triamcinol 6-30 S pirit one) one) 00:00: - CHI 00 [facility] Bupivicaine Bupivicaine 2020-0 No 2.5mg Common [place] 6-30 Spirit 00:00: - CHI 00 [facility] Hyalgan 20 Hyalgan 20 2020-0 No 20mg C ommon mg mg 6-30 Spirit 00:00: - CHI 00 [facility] Kenalog Kenalog 0 No 40mg Common (Triamcinol (Triamcinol 6-30 S pirit one) one) 00:00: - CHI 00 [facility] Bupivicaine Bupivicaine 2020-0 No 2.5mg Common [place] 6-30 Spirit 00:00: - CHI 00 [facility] Hyalgan 20 Hyalgan 20 2020-0 No 20mg C ommon mg mg 6-30 Spirit 00:00: - CHI 00 [facility] Kenalog Kenalog 0 No 40mg Common (Triamcinol (Triamcinol 6-30 S pirit one) one) 00:00: - CHI 00 [facility] Bupivicaine Bupivicaine 2020-0 No 2.5mg Common [place] 6-30 Spirit 00:00: - CHI 00 [facility] Hyalgan 20 Hyalgan 20 2020-0 No 20mg C ommon mg mg 6-30 Spirit 00:00: - CHI 00 [facility] Kenalog Kenalog 0 No 40mg Common (Triamcinol (Triamcinol 6-30 S pirit one) one) 00:00: - CHI 00 [facility] Bupivicaine Bupivicaine 2020-0 No 2.5mg Common [place] 6-30 Spirit 00:00: - CHI 00 [facility] Hyalgan 20 Hyalgan 20 2020-0 No 20mg C ommon mg mg 6-30 Spirit 00:00: - CHI 00 [facility] Kenalog Kenalog 2020-0 No 40mg Common (Triamcinol (Triamcinol 6-30 S pirit one) one) 00:00: - CHI 00 [facility] Bupivicaine Bupivicaine 2020-0 No 2.5mg Common [place] 6-30 Spirit 00:00: - CHI 00 [facility] Hyalgan 20 Hyalgan 20 2020-0 No 20mg C ommon mg mg 6-30 Spirit 00:00: - CHI 00 [facility] Kenalog Kenalog 2020-0 No 40mg Common (Triamcinol (Triamcinol 6-30 S pirit one) one) 00:00: - CHI 00 [facility] Bupivicaine Bupivicaine 2020-0 No 2.5mg Common [place] 6-30 Spirit 00:00: - CHI 00 [facility] Hyalgan 20 Hyalgan 20 2020-0 No 20mg C ommon mg mg 6-30 Spirit 00:00: - CHI 00 [facility] Kenalog Kenalog 2020-0 No 40mg Common (Triamcinol (Triamcinol 6-30 S pirit one) one) 00:00: - CHI 00 [facility] Bupivicaine Bupivicaine 2020-0 No 2.5mg Common [place] 6-30 Spirit 00:00: - CHI 00 [facility] Hyalgan 20 Hyalgan 20 2020-0 No 20mg C ommon mg mg 6-30 Spirit 00:00: - CHI 00 [facility] Gel-One Gel-One 2020-0 No 3mL Common 8-11 Spirit 00:00: - CHI 00 [facility] Bupivicaine Bupivicaine 2020-0 No 4mL Common [place] 8-11 Spirit 00:00: - CHI 00 [facility] Kenalog Kenalog 2020-0 No 40mg Common (Triamcinol (Triamcinol 8-11 S pirit one) one) 00:00: - CHI 00 [facility] Gel-One Gel-One 2020-0 No 3mL Common 8-11 Spirit 00:00: - CHI 00 [facility] Bupivicaine Bupivicaine 2020-0 No 4mL Common [place] 8-11 Spirit 00:00: - CHI 00 [facility] Kenalog Kenalog 2020-0 No 40mg Common (Triamcinol (Triamcinol 8-11 S pirit one) one) 00:00: - CHI 00 [facility] Gel-One Gel-One 2020-0 No 3mL Common 8-11 Spirit 00:00: - CHI 00 [facility] Bupivicaine Bupivicaine 2020-0 No 4mL Common [place] 8-11 Spirit 00:00: - CHI 00 [facility] Kenalog Kenalog 2020-0 No 40mg Common (Triamcinol (Triamcinol 8-11 S pirit one) one) 00:00: - CHI 00 [facility] Gel-One Gel-One 2020-0 No 3mL Common 8-11 Spirit 00:00: - CHI 00 [facility] Bupivicaine Bupivicaine 2020-0 No 4mL Common [place] 8-11 Spirit 00:00: - CHI 00 [facility] Kenalog Kenalog 2020-0 No 40mg Common (Triamcinol (Triamcinol 8-11 S pirit one) one) 00:00: - CHI 00 [facility] Gel-One Gel-One 2020-0 No 3mL Common 8-11 Spirit 00:00: - CHI 00 [facility] Bupivicaine Bupivicaine 2020-0 No 4mL Common [place] 8-11 Spirit 00:00: - CHI 00 [facility] Kenalog Kenalog 2020-0 No 40mg Common (Triamcinol (Triamcinol 8-11 S pirit one) one) 00:00: - CHI 00 [facility] Gel-One Gel-One 2020-0 No 3mL Common 8-11 Spirit 00:00: - CHI 00 [facility] Bupivicaine Bupivicaine 2020-0 No 4mL Common [place] 8-11 Spirit 00:00: - CHI 00 [facility] Kenalog Kenalog 2020-0 No 40mg Common (Triamcinol (Triamcinol 8-11 S pirit one) one) 00:00: - CHI 00 [facility] Gel-One Gel-One 2020-0 No 3mL Common 8-11 Spirit 00:00: - CHI 00 [facility] Bupivicaine Bupivicaine 2020-0 No 4mL Common [place] 8-11 Spirit 00:00: - CHI 00 [facility] Kenalog Kenalog 2020-0 No 40mg Common (Triamcinol (Triamcinol 8-11 S pirit one) one) 00:00: - CHI 00 [facility] Gel-One Gel-One 2020-0 No 3mL Common 8-11 Spirit 00:00: - CHI 00 [facility] Bupivicaine Bupivicaine 2020-0 No 4mL Common [place] 8-11 Spirit 00:00: - CHI 00 [facility] Kenalog Kenalog 2020-0 No 40mg Common (Triamcinol (Triamcinol 8-11 S pirit one) one) 00:00: - CHI 00 [facility] Gel-One Gel-One 2020-0 No 3mL Common 8-11 Spirit 00:00: - CHI 00 [facility] Bupivicaine Bupivicaine 2020-0 No 4mL Common [place] 8-11 Spirit 00:00: - CHI 00 [facility] Kenalog Kenalog 2020-0 No 40mg Common (Triamcinol (Triamcinol 8-11 S pirit one) one) 00:00: - CHI [facility] Gel-One Gel-One 2020-0 No 3mL Common 8-11 Spirit 00:00: - CHI [facility] Bupivicaine Bupivicaine 2020-0 No 4mL Common [place] 8-11 Spirit 00:00: - CHI 00 [facility] Kenalog Kenalog 2020-0 No 40mg Common (Triamcinol (Triamcinol 8-11 S pirit one) one) 00:00: - CHI 00 [facility] Gel-One Gel-One 2020-0 No 3mL Common 8-11 Spirit 00:00: - CHI [facility] Bupivicaine Bupivicaine 2020-0 No 4mL Common [place] 8-11 Spirit 00:00: - CHI 00 [facility] Kenalog Kenalog 2020-0 No 40mg Common (Triamcinol (Triamcinol 8-11 S pirit one) one) 00:00: - CHI 00 [facility] DULOXETINE 2020-0 Yes [id number] 20mg TAKE 1 U nivers 20 mg 5-22 CAPSULE BY ity of capsule 00:00: MOUTH [place] 00 DAILY. Medical KEEP ON Branch FILE. DULOXETINE 2020-0 Yes [id number] 20mg TAKE 1 U nivers 20 mg 5-22 CAPSULE BY ity of capsule 00:00: MOUTH [place] 00 DAILY. Medical KEEP ON Branch FILE. DULOXETINE 2020-0 Yes [id number] 20mg TAKE 1 U nivers 20 mg 5-22 CAPSULE BY ity of capsule 00:00: MOUTH [place] 00 DAILY. Medical KEEP ON Branch FILE. DULOXETINE 2020-0 Yes [id number] 20mg TAKE 1 U nivers 20 mg 5-22 CAPSULE BY ity of capsule 00:00: MOUTH [place] 00 DAILY. Medical KEEP ON Branch FILE. DULOXETINE 2020-0 Yes [id number] 20mg TAKE 1 U nivers 20 mg 5-22 CAPSULE BY ity of capsule 00:00: MOUTH [place] 00 DAILY. Medical KEEP ON Branch FILE. DULOXETINE 2020-0 Yes [id number] 20mg TAKE 1 U nivers 20 mg 5-22 CAPSULE BY ity of capsule 00:00: MOUTH [place] 00 DAILY. Medical KEEP ON Branch FILE. DULOXETINE 2020-0 Yes [id number] 20mg TAKE 1 U nivers 20 mg 5-22 CAPSULE BY ity of capsule 00:00: MOUTH [place] 00 DAILY. Medical KEEP ON Branch FILE. DULOXETINE 2020-0 Yes [id number] 20mg TAKE 1 U nivers 20 mg 5-22 CAPSULE BY ity of capsule 00:00: MOUTH [place] 00 DAILY. Medical KEEP ON Branch FILE. METOPROLOL 2020-0 Yes [id number] TAKE 1 U nivers TARTRATE 3-16 TABLET BY ity of 100 mg 00:00: MOUTH [place] tablet 00 TWICE A Medical DAY Branch METOPROLOL 2020-0 Yes [id number] TAKE 1 U nivers TARTRATE 3-16 TABLET BY ity of 100 mg 00:00: MOUTH [place] tablet 00 TWICE A Medical DAY Branch METOPROLOL 2020-0 Yes [id number] TAKE 1 U nivers TARTRATE 3-16 TABLET BY ity of 100 mg 00:00: MOUTH [place] tablet 00 TWICE A Medical DAY Branch METOPROLOL 2020-0 Yes [id number] TAKE 1 U nivers TARTRATE 3-16 TABLET BY ity of 100 mg 00:00: MOUTH [place] tablet 00 TWICE A Medical DAY Branch METOPROLOL 2020-0 Yes [id number] TAKE 1 U nivers TARTRATE 3-16 TABLET BY ity of 100 mg 00:00: MOUTH [place] tablet 00 TWICE A Medical DAY Branch METOPROLOL 2020-0 Yes [id number] TAKE 1 U nivers TARTRATE 3-16 TABLET BY ity of 100 mg 00:00: MOUTH [place] tablet 00 TWICE A Medical DAY Branch METOPROLOL 2020-0 Yes [id number] TAKE 1 U nivers TARTRATE 3-16 TABLET BY ity of 100 mg 00:00: MOUTH [place] tablet 00 TWICE A Medical DAY Branch METOPROLOL 2020-0 Yes [id number] TAKE 1 U nivers TARTRATE 3-16 TABLET BY ity of 100 mg 00:00: MOUTH [place] tablet 00 TWICE A Medical DAY Branch METOPROLOL 2020-0 Yes [id number] TAKE 1 U nivers TARTRATE 3-16 TABLET BY ity of 100 mg 00:00: MOUTH [place] tablet 00 TWICE A Medical DAY Branch METOPROLOL 2020-0 Yes [id number] TAKE 1 U nivers TARTRATE 3-16 TABLET BY ity of 100 mg 00:00: MOUTH [place] tablet 00 TWICE A Medical DAY Branch METOPROLOL 2020-0 Yes [id number] TAKE 1 U nivers TARTRATE 3-16 TABLET BY ity of 100 mg 00:00: MOUTH [place] tablet 00 TWICE A Medical DAY Branch OLMESARTAN 2018-10 Yes [id number] 40mg TAKE 1 Un mega 40 mg 2-27 TABLET BY ity of tablet 00:00: MOUTH [place] 00 DAILY. Medical KEEP ON Branch FILE. OLMESARTAN 2018-10 Yes [id number] 40mg TAKE 1 Un mega 40 mg 2-27 TABLET BY ity of tablet 00:00: MOUTH [place] 00 DAILY. Medical KEEP ON Branch FILE. OLMESARTAN 2018-10 Yes [id number] 40mg TAKE 1 Un mega 40 mg 2-27 TABLET BY ity of tablet 00:00: MOUTH [place] 00 DAILY. Medical KEEP ON Branch FILE. OLMESARTAN 2018-10 Yes [id number] 40mg TAKE 1 Un mega 40 mg 2-27 TABLET BY ity of tablet 00:00: MOUTH [place] 00 DAILY. Medical KEEP ON Branch FILE. OLMESARTAN 2018-10 Yes [id number] 40mg TAKE 1 Un mega 40 mg 2-27 TABLET BY ity of tablet 00:00: MOUTH [place] 00 DAILY. Medical KEEP ON Branch FILE. OLMESARTAN 2018-10 Yes [id number] 40mg TAKE 1 Un mega 40 mg 2-27 TABLET BY ity of tablet 00:00: MOUTH [place] 00 DAILY. Medical KEEP ON Branch FILE. OLMESARTAN 2018-10 Yes [id number] 40mg TAKE 1 Un mega 40 mg 2-27 TABLET BY ity of tablet 00:00: MOUTH [place] 00 DAILY. Medical KEEP ON Branch FILE. OLMESARTAN 2018-10 Yes [id number] 40mg TAKE 1 Un mega 40 mg 2-27 TABLET BY ity of tablet 00:00: MOUTH [place] 00 DAILY. Medical KEEP ON Branch FILE. OLMESARTAN 2018-10 Yes [id number] 40mg TAKE 1 Un mega 40 mg 2-27 TABLET BY ity of tablet 00:00: MOUTH [place] 00 DAILY. Medical KEEP ON Branch FILE. OLMESARTAN 2018-10 Yes [id number] 40mg TAKE 1 Un mega 40 mg 2-27 TABLET BY ity of tablet 00:00: MOUTH [place] 00 DAILY. Medical KEEP ON Branch FILE. OLMESARTAN 2018-10 Yes [id number] 40mg TAKE 1 Un mega 40 mg 2-27 TABLET BY ity of tablet 00:00: MOUTH [place] 00 DAILY. Medical KEEP ON Branch FILE. OLMESARTAN 2018-10 Yes [id number] 40mg TAKE 1 Un mega 40 mg 2-27 TABLET BY ity of tablet 00:00: MOUTH [place] 00 DAILY. Medical KEEP ON Branch FILE. OLMESARTAN 2018-10 Yes [id number] 40mg TAKE 1 Un mega 40 mg 2-27 TABLET BY ity of tablet 00:00: MOUTH [place] 00 DAILY. Medical KEEP ON Branch FILE. OLMESARTAN 2018-10 Yes [id number] 40mg TAKE 1 Un mega 40 mg 2-27 TABLET BY ity of tablet 00:00: MOUTH [place] 00 DAILY. Medical KEEP ON Branch FILE. OLMESARTAN 2018-10 Yes [id number] 40mg TAKE 1 Un mega 40 mg 2-27 TABLET BY ity of tablet 00:00: MOUTH [place] 00 DAILY. Medical KEEP ON Branch FILE. OLMESARTAN 2018-10 Yes [id number] 40mg TAKE 1 Un mega 40 mg 2-27 TABLET BY ity of tablet 00:00: MOUTH [place] 00 DAILY. Medical KEEP ON Branch FILE. OLMESARTAN 2018-10 Yes [id number] 40mg TAKE 1 Un mega 40 mg 2-27 TABLET BY ity of tablet 00:00: MOUTH [place] 00 DAILY. Medical KEEP ON Branch FILE. OLMESARTAN 2018-10 Yes [id number] 40mg TAKE 1 Un mega 40 mg [...] s: atrial fibrillati on METOLAZONE 2018-10 Yes [id number] 5mg TAKE 1 Un mega 5 mg tablet 2-09 TABLET BY ity of 00:00: MOUTH [place] 00 WEEKLY. Medical TAKE 30 Branch MINUTES BEFORE FUROSEMIDE . METOLAZONE 2018-10 Yes [id number] 5mg TAKE 1 Un mega 5 mg tablet 2-09 TABLET BY ity of 00:00: MOUTH [place] 00 WEEKLY. Medical TAKE 30 Branch MINUTES BEFORE FUROSEMIDE . METOLAZONE 2018-10 Yes [id number] 5mg TAKE 1 Un mega 5 mg tablet 2-09 TABLET BY ity of 00:00: MOUTH WEEKLY. Medical TAKE 30 Branch MINUTES BEFORE FUROSEMIDE . METOLAZONE 2018-10 Yes [id number] 5mg TAKE 1 Un mega 5 mg tablet 2-09 TABLET BY ity of 00:00: MOUTH [place] 00 WEEKLY. Medical TAKE 30 Branch MINUTES BEFORE FUROSEMIDE . METOLAZONE 2018-10 Yes [id number] 5mg TAKE 1 Un mega 5 mg tablet 2-09 TABLET BY ity of 00:00: MOUTH [place] WEEKLY. Medical TAKE 30 Branch MINUTES BEFORE FUROSEMIDE . METOLAZONE 2018-10 Yes [id number] 5mg TAKE 1 Un mega 5 mg tablet 2-09 TABLET BY ity of 00:00: MOUTH [place] WEEKLY. Medical TAKE 30 Branch MINUTES BEFORE FUROSEMIDE . METOLAZONE 2018-10 Yes [id number] 5mg TAKE 1 Un mega 5 mg tablet 2-09 TABLET BY ity of 00:00: MOUTH [place] 00 WEEKLY. Medical TAKE 30 Branch MINUTES BEFORE FUROSEMIDE . METOLAZONE 2018-10 Yes [id number] 5mg TAKE 1 Un mega 5 mg tablet 2-09 TABLET BY ity of 00:00: MOUTH [place] WEEKLY. Medical TAKE 30 Branch MINUTES BEFORE FUROSEMIDE . METOLAZONE 2018-10 Yes [id number] 5mg TAKE 1 Un mega 5 mg tablet 2-09 TABLET BY ity of 00:00: MOUTH [place] WEEKLY. Medical TAKE 30 Branch MINUTES BEFORE FUROSEMIDE . METOLAZONE 2018-10 Yes [id number] 5mg TAKE 1 Un mega 5 mg tablet 2-09 TABLET BY ity of 00:00: MOUTH [place] 00 WEEKLY. Medical TAKE 30 Branch MINUTES BEFORE FUROSEMIDE . METOLAZONE 2018-10 Yes [id number] 5mg TAKE 1 Un mega 5 mg tablet 2-09 TABLET BY ity of 00:00: MOUTH [place] 00 WEEKLY. Medical TAKE 30 Branch MINUTES BEFORE FUROSEMIDE . METOLAZONE 2018-10 Yes [id number] 5mg TAKE 1 Un mega 5 mg tablet 2-09 TABLET BY ity of 00:00: MOUTH [place] 00 WEEKLY. Medical TAKE 30 Branch MINUTES BEFORE FUROSEMIDE . METOLAZONE 2018-10 Yes [id number] 5mg TAKE 1 Un mega 5 mg tablet 2-09 TABLET BY ity of 00:00: MOUTH [place] 00 WEEKLY. Medical TAKE 30 Branch MINUTES BEFORE FUROSEMIDE . METOLAZONE 2018-10 Yes [id number] 5mg TAKE 1 Un mgea 5 mg tablet 2-09 TABLET BY ity of 00:00: MOUTH [place] 00 WEEKLY. Medical TAKE 30 Branch MINUTES BEFORE FUROSEMIDE . METOLAZONE 2018-10 Yes [id number] 5mg TAKE 1 Un mega 5 mg tablet 2-09 TABLET BY ity of 00:00: MOUTH [place] 00 WEEKLY. Medical TAKE 30 Branch MINUTES BEFORE FUROSEMIDE . METOLAZONE 2018-10 Yes [id number] 5mg TAKE 1 Un mega 5 mg tablet 2-09 TABLET BY ity of 00:00: MOUTH [place] 00 WEEKLY. Medical TAKE 30 Branch MINUTES BEFORE FUROSEMIDE . METOLAZONE 2018-10 Yes [id number] 5mg TAKE 1 Un mega 5 mg tablet 2-09 TABLET BY ity of 00:00: MOUTH [place] 00 WEEKLY. Medical TAKE 30 Branch MINUTES BEFORE FUROSEMIDE . METOLAZONE 2018-10 Yes [id number] 5mg TAKE 1 Un mega 5 mg [...] DAILY. Medical KEEP ON Branch FILE. DULOXETINE 2019-1 Yes 20mg TAKE 1 Unive rs 20 [...] of (ALPHAGAN P 16:31: each eye 3 [place] OPHTHALMIC) 49 (three) Medic al times Branch [...] 7-11 mouth. ity of ITAMIN D3 16:07: [place] (CALTRATE 35 Medical 600 + D Branch ORAL) CALCIUM 2019-0 Yes Take by [facility] CARBONATE/V 7-11 mouth. ity of ITAMIN D3 16:07: [place] (CALTRATE 35 Medical 600 + D Branch ORAL) CALCIUM 2019-0 Yes Take by [facility] CARBONATE/V 7-11 mouth. ity of ITAMIN D3 16:07: [place] (CALTRATE 35 Medical 600 + D Branch ORAL) CALCIUM 2019-0 Yes Take by [facility] CARBONATE/V 7-11 mouth. ity of ITAMIN D3 16:07: [place] (CALTRATE 35 Medical 600 + D Branch ORAL) CALCIUM 2019-0 Yes Take by [facility] CARBONATE/V 7-11 mouth. ity of ITAMIN D3 16:07: [place] (CALTRATE 35 Medical 600 + D Branch ORAL) CALCIUM 2019-0 Yes Take by [facility] CARBONATE/V 7-11 mouth. ity of ITAMIN D3 16:07: [place] (CALTRATE 35 Medical 600 + D Branch ORAL) CALCIUM 2019-0 Yes Take by [facility] CARBONATE/V 7-11 mouth. ity of ITAMIN D3 16:07: [place] (CALTRATE 35 Medical 600 + D Branch ORAL) CALCIUM 2019-0 Yes Take by [facility] CARBONATE/V 7-11 mouth. ity of ITAMIN D3 16:07: [place] (CALTRATE 35 Medical 600 + D Branch ORAL) CALCIUM 2019-0 Yes Take by [facility] CARBONATE/V 7-11 mouth. ity of ITAMIN D3 16:07: [place] (CALTRATE 35 Medical 600 + D Branch ORAL) CALCIUM 2019-0 Yes Take by [facility] CARBONATE/V 7-11 mouth. ity of ITAMIN D3 16:07: [place] (CALTRATE 35 Medical 600 + D Branch ORAL) CALCIUM 2019-0 Yes Take by [facility] CARBONATE/V 7-11 mouth. ity of ITAMIN D3 16:07: [place] (CALTRATE 35 Medical 600 + D Branch ORAL) CALCIUM 2019-0 Yes Take by [facility] CARBONATE/V 7-11 mouth. ity of ITAMIN D3 16:07: [place] (CALTRATE 35 Medical 600 + D Branch ORAL) CALCIUM 2019-0 Yes Take by [facility] CARBONATE/V 7-11 mouth. ity of ITAMIN D3 16:07: [place] (CALTRATE 35 Medical 600 + D Branch ORAL) CALCIUM 2019-0 Yes Take by [facility] CARBONATE/V 7-11 mouth. ity of ITAMIN D3 16:07: [place] (CALTRATE 35 Medical 600 + D Branch ORAL) CALCIUM 2019-0 Yes Take by [facility] CARBONATE/V 7-11 mouth. ity of ITAMIN D3 16:07: [place] (CALTRATE 35 Medical 600 + D Branch ORAL) CALCIUM 2019-0 Yes Take by [facility] CARBONATE/V 7-11 mouth. ity of ITAMIN D3 16:07: [place] (CALTRATE 35 Medical 600 + D Branch ORAL) brimonidine 2019-0 Yes 1[drp] Place 1 U nivers tartrate 7-11 Drop in ity of (ALPHAGAN P 11:31: each eye 3 [place] OPHTHALMIC) 49 (three) Medic al times Branch daily as needed (eye dryness). brimonidine 2019-0 Yes 1[drp] Place 1 U nivers tartrate 7-11 Drop in ity of (ALPHAGAN P 11:31: each eye 3 [place] OPHTHALMIC) 49 (three) Medic al times Branch daily as needed (eye dryness). brimonidine 2019-0 Yes 1[drp] Place 1 U nivers tartrate 7-11 Drop in ity of (ALPHAGAN P 11:31: each eye 3 [place] OPHTHALMIC) 49 (three) Medic al times Branch daily as needed (eye dryness). brimonidine 2019-0 Yes 1[drp] Place 1 U nivers tartrate 7-11 Drop in ity of (ALPHAGAN P 11:31: each eye 3 [place] OPHTHALMIC) 49 (three) Medic al times Branch daily as needed (eye dryness). brimonidine 2019- Yes 1[drp] Place 1 U nivers tartrate 7-11 Drop in ity of (ALPHAGAN P 11:31: each eye 3 [place] OPHTHALMIC) 49 (three) Medic al times Branch daily as needed (eye dryness). CALCIUM 2019-0 Yes Take by [facility] CARBONATE/V 7-11 mouth. ity of ITAMIN D3 11:07: [place] (CALTRATE 35 Medical 600 + D Branch ORAL) CALCIUM [id number] Yes Take by [facility] CARBONATE/V 7-11 mouth. ity of ITAMIN D3 11:07: [place] (CALTRATE 35 Medical 600 + D Branch ORAL) CALCIUM 0 Yes Take by [facility] CARBONATE/V 7-11 mouth. ity of ITAMIN D3 11:07: [place] (CALTRATE 35 Medical 600 + D Branch ORAL) CALCIUM 0 Yes Take by [facility] CARBONATE/V 7-11 mouth. ity of ITAMIN D3 11:07: [place] (CALTRATE 35 Medical 600 + D Branch ORAL) CALCIUM Yes Take by [facility] CARBONATE/V 7-11 mouth. ity of ITAMIN D3 11:07: [place] (CALTRATE 35 Medical 600 + D Branch ORAL) vit 2019-0 Yes [id number] 1{capsu Take 1 U nivers C,E-Zn-mercedes 7-11 [id number] le} capsule by ity of r-lutein-ze 00:00: mouth 2 [place] 00 (two) Medical (PRESERVISI times Branch ON AREDS-2) daily. 250-200-40- 1 mg-unit-mg- mg Cap vit 2019-0 Yes [id number] 1{capsu Take 1 U nivers C,E-Zn-mercedes 7-11 [id number] le} capsule by ity of r-lutein-ze 00:00: mouth 2 [place] 00 (two) Medical (PRESERVISI times Branch ON AREDS-2) daily. 250-200-40- 1 mg-unit-mg- mg Cap vit 2019-0 Yes [id number] 1{capsu Take 1 U nivers C,E-Zn-mercedes 7-11 [id number] le} capsule by ity of r-lutein-ze 00:00: mouth 2 [place] 00 (two) Medical (PRESERVISI times Branch ON AREDS-2) daily. 250-200-40- 1 mg-unit-mg- mg Cap vit 2019-0 Yes [id number] 1{capsu Take 1 U nivers C,E-Zn-mercedes 7-11 [id number] le} capsule by ity of r-lutein-ze 00:00: mouth 2 [place] 00 (two) Medical (PRESERVISI times Branch ON AREDS-2) daily. 250-200-40- 1 mg-unit-mg- mg Cap vit 2019-0 Yes [id number] 1{capsu Take 1 U nivers C,E-Zn-mercedes 7-11 [id number] le} capsule by ity of r-lutein-ze 00:00: mouth 2 [place] 00 (two) Medical (PRESERVISI times Branch ON AREDS-2) daily. 250-200-40- 1 mg-unit-mg- mg Cap vit 2018-0 Yes [id number] 1{capsu Take 1 U nivers C,E-Zn-mercedes 7-11 [id number] le} capsule by ity of r-lutein-ze 00:00: mouth 2 [place] 00 (two) Medical (PRESERVISI times Branch ON AREDS-2) daily. 250-200-40- 1 mg-unit-mg- mg Cap vit 2018-0 Yes [id number] 1{capsu Take 1 U nivers C,E-Zn-mercedes 7-11 [id number] le} capsule by ity of r-lutein-ze 00:00: mouth 2 [place] 00 (two) Medical (PRESERVISI times Branch ON AREDS-2) daily. 250-200-40- 1 mg-unit-mg- mg Cap vit 2018-0 Yes [id number] 1{capsu Take 1 U nivers C,E-Zn-mercedes 7-11 [id number] le} capsule by ity of r-lutein-ze 00:00: mouth 2 [place] 00 (two) Medical (PRESERVISI times Branch ON AREDS-2) daily. 250-200-40- 1 mg-unit-mg- mg Cap vit 2019-0 Yes [id number] 1{capsu Take 1 U nivers C,E-Zn-mercedes 7-11 [id number] le} capsule by ity of r-lutein-ze 00:00: mouth 2 [place] 00 (two) Medical (PRESERVISI times Branch ON AREDS-2) daily. 250-200-40- 1 mg-unit-mg- mg Cap vit 2019-0 Yes [id number] 1{capsu Take 1 U nivers C,E-Zn-mercedes 7-11 [id number] le} capsule by ity of r-lutein-ze 00:00: mouth 2 [place] 00 (two) Medical (PRESERVISI times Branch ON AREDS-2) daily. 250-200-40- 1 mg-unit-mg- mg Cap vit 2019-0 Yes [id number] 1{capsu Take 1 U nivers C,E-Zn-mercedes 7-11 [id number] le} capsule by ity of r-lutein-ze 00:00: mouth 2 [place] 00 (two) Medical (PRESERVISI times Branch ON AREDS-2) daily. 250-200-40- 1 mg-unit-mg- mg Cap vit 2019-0 Yes [id number] 1{capsu Take 1 U nivers C,E-Zn-mercedes 7-11 [id number] le} capsule by ity of r-lutein-ze 00:00: mouth 2 [place] 00 (two) Medical (PRESERVISI times Branch ON AREDS-2) daily. 250-200-40- 1 mg-unit-mg- mg Cap vit 2019-0 Yes [id number] 1{capsu Take 1 U nivers C,E-Zn-mercedes 7-11 [id number] le} capsule by ity of r-lutein-ze 00:00: mouth 2 [place] 00 (two) Medical (PRESERVISI times Branch ON AREDS-2) daily. 250-200-40- 1 mg-unit-mg- mg Cap vit 2019-0 Yes [id number] 1{capsu Take 1 U nivers C,E-Zn-emrcedes 7-11 [id number] le} capsule by ity of r-lutein-ze 00:00: mouth 2 [place] 00 (two) Medical (PRESERVISI times Branch ON AREDS-2) daily. 250-200-40- 1 mg-unit-mg- mg Cap vit 2019-0 Yes [id number] 1{capsu Take 1 U nivers C,E-Zn-mercedes 7-11 [id number] le} capsule by ity of r-lutein-ze 00:00: mouth 2 [place] 00 (two) Medical (PRESERVISI times Branch ON AREDS-2) daily. 250-200-40- 1 mg-unit-mg- mg Cap vit 2019-0 Yes [id number] 1{capsu Take 1 U nivers C,E-Zn-mercedes 7-11 [id number] le} capsule by ity of r-lutein-ze 00:00: mouth 2 [place] 00 (two) Medical (PRESERVISI times Branch ON AREDS-2) daily. 250-200-40- 1 mg-unit-mg- mg Cap vit 2019-0 Yes [id number] 1{capsu Take 1 U nivers C,E-Zn-mercedes 7-11 [id number] le} capsule by ity of r-lutein-ze 00:00: mouth 2 [place] 00 (two) Medical (PRESERVISI times Branch ON AREDS-2) daily. 250-200-40- 1 mg-unit-mg- mg Cap vit 2019-0 Yes [id number] 1{capsu Take 1 U nivers C,E-Zn-mercedes 7-11 [id number] le} capsule by ity of r-lutein-ze 00:00: mouth 2 [place] 00 (two) Medical (PRESERVISI times Branch ON AREDS-2) daily. 250-200-40- 1 mg-unit-mg- mg Cap vit 2019-0 Yes [id number] 1{capsu Take 1 U nivers C,E-Zn-mercedes 7-11 [id number] le} capsule by ity of r-lutein-ze 00:00: mouth 2 [place] 00 (two) Medical (PRESERVISI times Branch ON AREDS-2) daily. 250-200-40- 1 mg-unit-mg- mg Cap vit 2019-0 Yes [id number] 1{capsu Take 1 U nivers C,E-Zn-mercedes 7-11 [id number] le} capsule by ity of r-lutein-ze 00:00: mouth 2 [place] 00 (two) Medical (PRESERVISI times Branch ON AREDS-2) daily. 250-200-40- 1 mg-unit-mg- mg Cap vit 2019-0 Yes [id number] 1{capsu Take 1 U Anna Cheema-Zn-mercedes 04-23 [id number] le} capsule by flori [facility]a 00:00: mouth 2 [place] 00 (two) Medical (PRESERVISI times Branch ON AREDS-2) daily. 250-200-40- 1 mg-unit-mg- mg Cap LIDOCAINE LIDOCAINE 2019-0 No 10mg Com mon HCL 10MG/ML HCL 10MG/ML 6-13 S pirit 00:00: - [facility] Euflexxa Euflexxa 2019-0 No 2mL Commo n 6-13 [facility] 00:00: - [facility] LIDOCAINE LIDOCAINE 2019-0 No 10mg Com mon HCL 10MG/ML HCL 10MG/ML 6-13 S pirit 00:00: - [facility] Euflexxa Euflexxa 2019-0 No 2mL Commo n 6-13 [facility] 00:00: - [facility] LIDOCAINE LIDOCAINE 2019-0 No 10mg Com mon HCL 10MG/ML HCL 10MG/ML 6-13 S pirit 00:00: - [facility] Euflexxa Euflexxa 2019-0 No 2mL Commo n 6-13 [facility] 00:00: - [facility] LIDOCAINE LIDOCAINE 2019-0 No 10mg Com mon HCL 10MG/ML HCL 10MG/ML 6-13 S pirit 00:00: - [facility] Euflexxa Euflexxa 2019-0 No 2mL Commo n 6-13 [facility] 00:00: - [facility] LIDOCAINE LIDOCAINE 2019-0 No 10mg Com mon HCL 10MG/ML HCL 10MG/ML 6-13 S pirit 00:00: - [facility] Euflexxa Euflexxa 2019-0 No 2mL Commo n 6-13 [facility] 00:00: - [facility] LIDOCAINE LIDOCAINE 2019-0 No 10mg Com mon HCL 10MG/ML HCL 10MG/ML 6-13 S pirit 00:00: - [facility] Euflexxa Euflexxa 2019-0 No 2mL Commo n 6-13 [facility] 00:00: - [facility] LIDOCAINE LIDOCAINE 2019-0 No 10mg Com mon HCL 10MG/ML HCL 10MG/ML 6-13 S pirit 00:00: - [facility] Euflexxa Euflexxa 2019-0 No 2mL Commo n 6-13 [facility] 00:00: - [facility] LIDOCAINE LIDOCAINE 2019-0 No 10mg Com mon HCL 10MG/ML HCL 10MG/ML 6-13 S pirit 00:00: - [facility] Euflexxa Euflexxa 2019-0 No 2mL Commo n 6-13 [facility] 00:00: - [facility] LIDOCAINE LIDOCAINE 2019-0 No 10mg Com mon HCL 10MG/ML HCL 10MG/ML 6-13 S pirit 00:00: - [facility] Euflexxa Euflexxa 2019-0 No 2mL Commo n 6-13 [facility] 00:00: - [facility] LIDOCAINE LIDOCAINE 2019-0 No 10mg Com mon HCL 10MG/ML HCL 10MG/ML 6-13 S pirit 00:00: - [facility] Euflexxa Euflexxa 2019-0 No 2mL Commo n 6-13 [facility] 00:00: - [facility] LIDOCAINE LIDOCAINE 2019-0 No 10mg Com mon HCL 10MG/ML HCL 10MG/ML 6-13 S pirit 00:00: - [facility] Euflexxa Euflexxa 2019-0 No 2mL Commo n 6-13 [facility] 00:00: - [facility] Euflexxa Euflexxa 2019-0 No 2mg Commo n 6-06 [facility] 00:00: - [facility] LIDOCAINE LIDOCAINE 2019-0 No 10mg Com mon HCL 10MG/ML HCL 10MG/ML 6-06 S pirit 00:00: - [facility] Euflexxa Euflexxa 2019-0 No 2mg Commo n 6-06 [facility] 00:00: - [facility] LIDOCAINE LIDOCAINE 2019-0 No 10mg Com mon HCL 10MG/ML HCL 10MG/ML 6-06 S pirit 00:00: - [facility] Euflexxa Euflexxa 2019-0 No 2mg Commo n 6- [facility] 00:00: - [facility] LIDOCAINE LIDOCAINE 2019-0 No 10mg Com mon HCL 10MG/ML HCL 10MG/ML 6-06 S pirit 00:00: - [facility] Euflexxa Euflexxa 2019-0 No 2mg Commo n 03-19 [facility] 00:00: - [facility] LIDOCAINE LIDOCAINE 2019-0 No 10mg Com mon HCL 10MG/ML HCL 10MG/ML 6-06 S pirit 00:00: - [facility] Euflexxa Euflexxa 2019-0 No 2mg Commo n 03-19 [facility] 00:00: - [facility] LIDOCAINE LIDOCAINE 2019-0 No 10mg Com mon HCL 10MG/ML HCL 10MG/ML 6-06 S pirit 00:00: - [facility] Euflexxa Euflexxa 2019-0 No 2mg Commo n 03-19 [facility] 00:00: - [facility] LIDOCAINE LIDOCAINE 2019-0 No 10mg Com mon HCL 10MG/ML HCL 10MG/ML 6-06 S pirit 00:00: - [facility] Euflexxa Euflexxa 2019-0 No 2mg Commo n 03-19 [facility] 00:00: - [facility] LIDOCAINE LIDOCAINE 2019-0 No 10mg Com mon HCL 10MG/ML HCL 10MG/ML 6-06 S pirit 00:00: - [facility] Euflexxa Euflexxa 2019-0 No 2mg Commo n 03-19 [facility] 00:00: - [facility] LIDOCAINE LIDOCAINE 2019-0 No 10mg Com mon HCL 10MG/ML HCL 10MG/ML 6-06 S pirit 00:00: - [facility] Euflexxa Euflexxa 2019-0 No 2mg Commo n 03-19 [facility] 00:00: - [facility] LIDOCAINE LIDOCAINE 2019-0 No 10mg Com mon HCL 10MG/ML HCL 10MG/ML 6-06 S pirit 00:00: - [facility] Euflexxa Euflexxa 2019-0 No 2mg Commo n 6-06 [facility] 00:00: - [facility] LIDOCAINE LIDOCAINE 2019-0 No 10mg Com mon HCL 10MG/ML HCL 10MG/ML 6-06 S pirit 00:00: - [facility] Euflexxa Euflexxa 2019-0 No 2mg Commo n 6-06 [facility] 00:00: - [facility] LIDOCAINE LIDOCAINE 2019-0 No 10mg Com mon HCL 10MG/ML HCL 10MG/ML 6-06 S pirit 00:00: - [facility] LIDOCAINE LIDOCAINE 2019-0 No 10mg Com mon HCL 10MG/ML HCL 10MG/ML 5-30 S pirit 00:00: - [facility] Euflexxa Euflexxa 2019-0 No 20mg Commo n 5-30 [facility] 00:00: - [facility] LIDOCAINE LIDOCAINE 2019-0 No 10mg Com mon HCL 10MG/ML HCL 10MG/ML 5-30 S pirit 00:00: - [facility] Euflexxa Euflexxa 2019-0 No 20mg Commo n 5-30 [facility] 00:00: - [facility] LIDOCAINE LIDOCAINE 2019-0 No 10mg Com mon HCL 10MG/ML HCL 10MG/ML 5-30 S pirit 00:00: - [facility] Euflexxa Euflexxa 2019-0 No 20mg Commo n 5-30 [facility] 00:00: - [facility] LIDOCAINE LIDOCAINE 2019-0 No 10mg Com mon HCL 10MG/ML HCL 10MG/ML 5-30 S pirit 00:00: - [facility] Euflexxa Euflexxa 2019-0 No 20mg Commo n 5-30 [facility] 00:00: - [facility] LIDOCAINE LIDOCAINE 2019-0 No 10mg Com mon HCL 10MG/ML HCL 10MG/ML 5-30 S pirit 00:00: - [facility] Euflexxa Euflexxa 2019-0 No 20mg Commo n 5-30 [facility] 00:00: - [facility] LIDOCAINE LIDOCAINE 2019-0 No 10mg Com mon HCL 10MG/ML HCL 10MG/ML 5-30 S pirit 00:00: - [facility] Euflexxa Euflexxa 2019-0 No 20mg Commo n 5-30 [facility] 00:00: - [facility] LIDOCAINE LIDOCAINE 2019-0 No 10mg Com mon HCL 10MG/ML HCL 10MG/ML 5-30 S pirit 00:00: - [facility] Euflexxa Euflexxa 2019-0 No 20mg Commo n 5-30 [facility] 00:00: - [facility] LIDOCAINE LIDOCAINE 2019-0 No 10mg Com mon HCL 10MG/ML HCL 10MG/ML 5-30 S pirit 00:00: - [facility] Euflexxa Euflexxa 2019-0 No 20mg Commo n 5-30 [facility] 00:00: - [facility] LIDOCAINE LIDOCAINE 2019-0 No 10mg Com mon HCL 10MG/ML HCL 10MG/ML 5-30 S pirit 00:00: - [facility] Euflexxa Euflexxa 2019-0 No 20mg Commo n 5-30 [facility] 00:00: - [facility] LIDOCAINE LIDOCAINE 2019-0 No 10mg Com mon HCL 10MG/ML HCL 10MG/ML 5-30 S pirit 00:00: - [facility] Euflexxa Euflexxa 2019-0 No 20mg Commo n 5-30 [facility] 00:00: - [facility] LIDOCAINE LIDOCAINE 2019-0 No 10mg Com mon HCL 10MG/ML HCL 10MG/ML 5-30 S pirit 00:00: - [facility] Euflexxa Euflexxa 2019-0 No 20mg Commo n 5-30 [facility] 00:00: - [facility] furosemide 2019-0 Yes [id number] 80mg Take 2 Un mega (LASIX) 40 2-20 tablets by ity of mg tablet 00:00: mouth [place] 00 every Medical morning Branch and evening. Keep on file. atorvastati 2019-0 Yes [id number] 40mg Take 1 Univers n 40 mg 2-20 tablet by ity of tablet 00:00: mouth at [place] 00 bedtime. Medical Keep on Branch file. furosemide 2019-0 Yes [id number] 80mg Take 2 Un mega (LASIX) 40 2-20 tablets by ity of mg tablet 00:00: mouth [place] 00 every Medical morning Branch and evening. Keep on file. atorvastati 2019-0 Yes [id number] 40mg Take 1 [facility] n 40 mg 2-20 tablet by ity of tablet 00:00: mouth at [place] 00 bedtime. Medical Keep on Branch file. furosemide 2019-0 Yes [id number] 80mg Take 2 Un mega (LASIX) 40 2-20 tablets by ity of mg tablet 00:00: mouth [place] 00 every Medical morning Branch and evening. Keep on file. atorvastati 2019-0 Yes [id number] 40mg Take 1 Univers n 40 mg 2-20 tablet by ity of tablet 00:00: mouth at [place] 00 bedtime. Medical Keep on Branch file. furosemide 2018-0 Yes [id number] 80mg Take 2 Un mega (LASIX) 40 2-20 tablets by ity of mg tablet 00:00: mouth [place] 00 every Medical morning Branch and evening. Keep on file. atorvastati 2018- Yes [id number] 40mg Take 1 Univers n 40 mg 2-20 tablet by ity of tablet 00:00: mouth at [place] 00 bedtime. Medical Keep on Branch file. furosemide 2018-0 Yes [id number] 80mg Take 2 Un mega (LASIX) 40 2-20 tablets by ity of mg tablet 00:00: mouth [place] 00 every Medical morning Branch and evening. Keep on file. atorvastati 2018-0 Yes [id number] 40mg Take 1 Univers n 40 mg 2-20 tablet by ity of tablet 00:00: mouth at [place] 00 bedtime. Medical Keep on Branch file. furosemide 2019-0 Yes [id number] 80mg Take 2 Un mega (LASIX) 40 2-20 tablets by ity of mg tablet 00:00: mouth [place] 00 every Medical morning Branch and evening. Keep on file. atorvastati 2018-0 Yes [id number] 40mg Take 1 [facility] n 40 mg 2-20 tablet by ity of tablet 00:00: mouth at [place] 00 bedtime. Medical Keep on Branch file. furosemide 2019-0 Yes [id number] 80mg Take 2 Un mega (LASIX) 40 2-20 tablets by ity of mg tablet 00:00: mouth [place] 00 every Medical morning Branch and evening. Keep on file. atorvastati 2019-0 Yes [id number] 40mg Take 1 Univers n 40 mg 2-20 tablet by ity of tablet 00:00: mouth at [place] 00 bedtime. Medical Keep on Branch file. furosemide 2018-0 Yes [id number] 80mg Take 2 Un mega (LASIX) 40 2-20 tablets by ity of mg tablet 00:00: mouth [place] 00 every Medical morning Branch and evening. Keep on file. atorvastati Yes [id number] 40mg Take 1 [facility] n 40 mg 2-20 tablet by ity of tablet 00:00: mouth at [place] 00 bedtime. Medical Keep on Branch file. furosemide Yes [id number] 80mg Take 2 Un mega (LASIX) 40 2-20 tablets by ity of mg tablet 00:00: mouth [place] 00 every Medical morning Branch and evening. Keep on file. atorvastati Yes [id number] 40mg Take 1 Univers n 40 mg 2-20 tablet by ity of tablet 00:00: mouth at [place] 00 bedtime. Medical Keep on Branch file. metOLazone 0 Yes [id number] 5mg Take 1 Un mega 5 mg tablet 2-20 tablet by ity of 00:00: mouth [place] 00 weekly. Medical Take 30 Branch minutes before furosemide . furosemide 0 Yes [id number] 80mg Take 2 Un mega (LASIX) 40 2-20 tablets by ity of mg tablet 00:00: mouth [place] 00 every Medical morning Branch and evening. Keep on file. atorvastati 2018- Yes [id number] 40mg Take 1 [facility] n 40 mg 2-20 tablet by ity of tablet 00:00: mouth at [place] 00 bedtime. Medical Keep on Branch file. furosemide 2018-0 Yes [id number] 80mg Take 2 Un mega (LASIX) 40 2-20 tablets by ity of mg tablet 00:00: mouth [place] 00 every Medical morning Branch and evening. Keep on file. atorvastati 2018-0 Yes [id number] 40mg Take 1 Univers n 40 mg 2-20 tablet by ity of tablet 00:00: mouth at [place] 00 bedtime. Medical Keep on Branch file. furosemide 2018-0 Yes [id number] 80mg Take 2 Un mega (LASIX) 40 2-20 tablets by ity of mg tablet 00:00: mouth [place] 00 every Medical morning Branch and evening. Keep on file. atorvastati 2019- Yes [id number] 40mg Take 1 Univers n 40 mg 2-20 tablet by ity of tablet 00:00: mouth at [place] 00 bedtime. Medical Keep on Branch file. metOLazone 2018-0 Yes [id number] 5mg Take 1 Un mega 5 mg tablet 2-20 tablet by ity of 00:00: mouth [place] 00 weekly. Medical Take 30 Branch minutes before furosemide . furosemide 2018-0 Yes [id number] 80mg Take 2 Un mega (LASIX) 40 2-20 tablets by ity of mg tablet 00:00: mouth [place] 00 every Medical morning Branch and evening. Keep on file. atorvastati Yes [id number] 40mg Take 1 [facility] n 40 mg 2-20 tablet by ity of tablet 00:00: mouth at [place] 00 bedtime. Medical Keep on Branch file. furosemide Yes [id number] 80mg Take 2 Un mega (LASIX) 40 2-20 tablets by ity of mg tablet 00:00: mouth [place] 00 every Medical morning Branch and evening. Keep on file. atorvastati Yes [id number] 40mg Take 1 Univers n 40 mg 2-20 tablet by ity of tablet 00:00: mouth at [place] 00 bedtime. Medical Keep on Branch file. furosemide 2018-0 Yes [id number] 80mg Take 2 Un mega (LASIX) 40 2-20 tablets by ity of mg tablet 00:00: mouth [place] 00 every Medical morning Branch and evening. Keep on file. atorvastati 2018-0 Yes [id number] 40mg Take 1 [facility] n 40 mg 2-20 tablet by ity of tablet 00:00: mouth at [place] 00 bedtime. Medical Keep on Branch file. furosemide 2018-0 Yes [id number] 80mg Take 2 Un mega (LASIX) 40 2-20 tablets by ity of mg tablet 00:00: mouth [place] 00 every Medical morning Branch and evening. Keep on file. atorvastati 2018-0 Yes [id number] 40mg Take 1 [facility] n 40 mg 2-20 tablet by ity of tablet 00:00: mouth at [place] 00 bedtime. Medical Keep on Branch file. furosemide 2018-0 Yes [id number] 80mg Take 2 Un mega (LASIX) 40 2-20 tablets by ity of mg tablet 00:00: mouth [place] 00 every Medical morning Branch and evening. Keep on file. atorvastati Yes [id number] 40mg Take 1 [facility] n 40 mg 2-20 tablet by ity of tablet 00:00: mouth at [place] 00 bedtime. Medical Keep on Branch file. furosemide Yes [id number] 80mg Take 2 Un mega (LASIX) 40 2-20 tablets by ity of mg tablet 00:00: mouth [place] 00 every Medical morning Branch and evening. Keep on file. atorvastati Yes [id number] 40mg Take 1 [facility] n 40 mg 2-20 tablet by ity of tablet 00:00: mouth at [place] 00 bedtime. Medical Keep on Branch file. furosemide Yes [id number] 80mg Take 2 Un mega (LASIX) 40 2-20 tablets by ity of mg tablet 00:00: mouth [place] 00 every Medical morning Branch and evening. Keep on file. furosemide Yes [id number] 80mg Take 2 Un mega (LASIX) 40 2-20 tablets by ity of mg tablet 00:00: mouth [place] 00 every Medical morning Branch and evening. Keep on file. atorvastati Yes [id number] 40mg Take 1 [facility] n 40 mg 2-20 tablet by ity of tablet 00:00: mouth at [place] 00 bedtime. Medical Keep on Branch file. atorvastati Yes [id number] 40mg Take 1 [facility] n 40 mg 2-20 tablet by ity of tablet 00:00: mouth at [place] 00 bedtime. Medical Keep on Branch file. metOLazone Yes [id number] 5mg Take 1 Un mega 5 mg tablet 2-20 tablet by ity of 00:00: mouth [place] 00 weekly. Medical Take 30 Branch minutes before furosemide . furosemide Yes [id number] 80mg Take 2 Un mega (LASIX) 40 2-20 tablets by ity of mg tablet 00:00: mouth [place] 00 every Medical morning Branch and evening. Keep on file. atorvastati Yes [id number] 40mg Take 1 [facility] n 40 mg 2-20 tablet by ity of tablet 00:00: mouth at [place] 00 bedtime. Medical Keep on Branch file. metoprolol 2017-10 Yes [id number] 100mg Take 1 [facility] tartrate 2-27 tablet by [facility] of 100 mg 00:00: mouth 2 [place] tablet 00 (two) Medical times Branch daily. metoprolol 2017-10 Yes [id number] 100mg Take 1 [facility] tartrate 2-27 tablet by [facility] of 100 mg 00:00: mouth 2 [place] tablet 00 (two) Medical times Branch daily. metoprolol 2017-10 Yes [id number] 100mg Take 1 [facility] tartrate 2-27 tablet by [facility] of 100 mg 00:00: mouth 2 [place] tablet 00 (two) Medical times Branch daily. metoprolol 2017-10 Yes [id number] 100mg Take 1 [facility] tartrate 2-27 tablet by [facility] of 100 mg 00:00: mouth 2 [place] tablet 00 (two) Medical times Branch daily. metoprolol 2017-10 Yes [id number] 100mg Take 1 [facility] tartrate 2-27 tablet by [facility] of 100 mg 00:00: mouth 2 [place] tablet 00 (two) Medical times Branch daily. metoprolol 2017-10 Yes [id number] 100mg Take 1 [facility] tartrate [facility]-27 tablet by [facility] of 100 mg 00:00: mouth 2 [place] tablet 00 (two) [facility] times [facility] daily. metoprolol 2017-10 Yes [id number] 100mg Take 1 [facility] tartrate 2-27 tablet by [facility] of 100 mg 00:00: mouth 2 [place] tablet 00 (two) [facility] times [facility] daily. metoprolol 2017-10 Yes [id number] 100mg Take 1 [facility] tartrate 2-27 tablet by it[facility] of 100 mg 00:00: mouth 2 [place] tablet 00 (two) Medical times [facility] daily. metoprolol 2017-10 Yes [id number] 100mg Take 1 [facility] tartrate 2-27 tablet by it[facility] of 100 mg 00:00: mouth 2 [place] tablet 00 (two) Medical times Branch daily. metoprolol 2017-10 Yes [id number] 100mg Take 1 [facility] tartrate 2-27 tablet by it[facility] of 100 mg 00:00: mouth 2 [place] tablet 00 (two) Medical times Branch daily. metoprolol 2017-10 2020- No [id number] 100mg Take 1 [facility] tartrate 2-27 03-16 tablet by ity o f 100 mg 00:00: 00:00 mouth 2 [place] tablet 00 :00 (two) Medical times Branch daily. KCL 10 mEq 2017- Yes 10meq Take 1 Univ ers tablet [...] 2-10 tablet by ity of 00:00: mouth [place] 00 (two) Medical times Branch daily. [...] MG 14:51: mouth Medical tablet 07 daily. [place] olmesartan- Yes 1{tbl} QD Take [address] hydrochloro 8-04 tablet by [place] [facility] thiazide 14:51: mouth Medical (BENICAR 07 daily. [place] HCT) 40-25 mg per tablet rivaroxaban Yes 20mg QD Take [address] [facility] (XARELTO) 8-04 by [facility] Tab 14:51: daily. Medica l tablet 07 [place] digoxin Yes 250ug QD Take [facility] 0.25 MG 14:51: mouth Medical tablet 07 daily. [place] olmesartan- Yes 1{tbl} QD Take [address] hydrochloro 8-04 tablet by [place] es thiazide 14:51: mouth Medical (BENICAR 07 daily. [place] HCT) 40-25 mg per tablet rivaroxaban Yes 20mg QD Take [address] [facility] (XARELTO) 8-04 by [facility] 20 mg Tab 14:51: daily. Medica l tablet 07 [place] Alphagan P Alphagan P Yes [facility] not Common [facility] defined [facility] Xyzal Xyzal Yes [place] not Common [facility] defined [facility] Atorvastati Atorvastati Yes Carlos not Common n Calcium n Calcium [facility] Ol[facility] Olmesartan Yes Carlos not Common Medoxomil Medoxomil Diaz defined Sp [facility] potassium potassium Yes Carlos not Co mmon Diaz defined [facility] Metolazone Metolazone Yes Carlos not Common Diaz defined [facility] PreserVisio PreserVisio Yes [place] not Common n/Lutein n/Lutein Diaz defined [facility] it [facility] tylenol tylenol Yes Carlos not Common Diaz defined [facility] Furosemide Furosemide Yes Carlos not Common Diaz defined [facility] Caltrate Caltrate Yes Carlos not Comm on 600+D 600+D Diaz defined [facility] Xarelto Xarelto Yes Carlos not Common Diaz defined [facility] Cranberry Cranberry Yes Carlos not Co mmon Diaz defined [facility] Duloxetine Duloxetine Yes Carlos not Common HCl HCl Diaz defined [facility] Diltiazem Diltiazem Yes Carlos TAKE 1 Common HCl ER HCl ER Diaz CAPSULE BY Spiri t MOUTH - [facility] TWICE [facility] dilTIAZem dilTIAZem No dilTIAZem HCl ER 60 HCl ER 60 HCl ER 60 MG MG MG Olmesartan Olmesartan No Olmesartan Medoxomil Medoxomil Medoxomil 40 MG 40 MG 40 MG Tylenol 325 Tylenol 325 No 1{table 6xD Tylenol MG MG t_as_ne 325 MG eded} Xarelto 15 Xarelto 15 No Xarelto 15 MG MG MG Furosemide Furosemide No Furosemide 40 MG 40 MG 40 MG DULoxetine DULoxetine No DULoxetine HCl 20 MG HCl 20 MG HCl 20 MG Singulair 5 Singulair 5 No Singulair MG MG 5 MG Atorvastati Atorvastati No Atorvastat n Calcium n Calcium in Calcium 40 MG 40 MG 40 MG Cranberry Cranberry No Cranberry 500 MG 500 MG 500 MG Caltrate Caltrate No 1{table BID Caltrate 600+D 600+D t} 600+D 600-400 600-400 600-400 MG-UNIT MG-UNIT MG-UNIT metOLazone metOLazone No metOLazone 5 MG 5 MG 5 MG Estradiol Estradiol No Estradiol 0.1 MG/GM 0.1 MG/GM 0.1 MG/GM potassium potassium No potassium Olmesartan Olmesartan No 1{table QD Olmesartan Medoxomil-H Medoxomil-H t} Medoxomil- CTZ 40-25 CTZ 40-25 HCTZ 40-25 MG MG MG Alphagan P Alphagan P No Alphagan P 0.1 % 0.1 % 0.1 % Xyzal Xyzal No Xyzal Xyzal Xyzal No Xyzal metOLazone metOLazone No metOLazone 5 MG 5 MG 5 MG Cranberry Cranberry No Cranberry 500 MG 500 MG 500 MG Alphagan P Alphagan P No Alphagan P 0.1 % 0.1 % 0.1 % dilTIAZem dilTIAZem No dilTIAZem HCl ER 60 HCl ER 60 HCl ER 60 MG MG MG Olmesartan Olmesartan No Olmesartan Medoxomil Medoxomil Medoxomil 40 MG 40 MG 40 MG potassium potassium No potassium Singulair 5 Singulair 5 No Singulair MG MG 5 MG Tylenol 325 Tylenol 325 No 1{table 6xD Tylenol MG MG t_as_ne 325 MG eded} Estradiol Estradiol No Estradiol 0.1 MG/GM 0.1 MG/GM 0.1 MG/GM DULoxetine DULoxetine No DULoxetine HCl 20 MG HCl 20 MG HCl 20 MG Caltrate Caltrate No 1{table BID Caltrate 600+D 600+D t} 600+D 600-400 600-400 600-400 MG-UNIT MG-UNIT MG-UNIT Olmesartan Olmesartan No 1{table QD Olmesartan Medoxomil-H Medoxomil-H t} Medoxomil- CTZ 40-25 CTZ 40-25 HCTZ 40-25 MG MG MG Atorvastati Atorvastati No Atorvastat n Calcium n Calcium in Calcium 40 MG 40 MG 40 MG Xarelto 15 Xarelto 15 No Xarelto 15 MG MG MG Furosemide Furosemide No Furosemide 40 MG 40 MG 40 MG Olmesartan Olmesartan No Olmesartan Medoxomil Medoxomil Medoxomil 40 MG 40 MG 40 MG Xyzal Xyzal No Xyzal Singulair 5 Singulair 5 No Singulair MG MG 5 MG Estradiol Estradiol No Estradiol 0.1 MG/GM 0.1 MG/GM 0.1 MG/GM Caltrate Caltrate No 1{table BID Caltrate 600+D 600+D t} 600+D 600-400 600-400 600-400 MG-UNIT MG-UNIT MG-UNIT Alphagan P Alphagan P No Alphagan P 0.1 % 0.1 % 0.1 % Xarelto 15 Xarelto 15 No Xarelto 15 MG MG MG DULoxetine DULoxetine No DULoxetine HCl 20 MG HCl 20 MG HCl 20 MG Furosemide Furosemide No Furosemide 40 MG 40 MG 40 MG Tylenol 325 Tylenol 325 No 1{table 6xD Tylenol MG MG t_as_ne 325 MG eded} potassium potassium No potassium Olmesartan Olmesartan No 1{table QD Olmesartan Medoxomil-H Medoxomil-H t} Medoxomil- CTZ 40-25 CTZ 40-25 HCTZ 40-25 MG MG MG Atorvastati Atorvastati No Atorvastat n Calcium n Calcium in Calcium 40 MG 40 MG 40 MG dilTIAZem dilTIAZem No dilTIAZem HCl ER 60 HCl ER 60 HCl ER 60 MG MG MG Cranberry Cranberry No Cranberry 500 MG 500 MG 500 MG metOLazone metOLazone No metOLazone 5 MG 5 MG 5 MG Olmesartan Olmesartan No Olmesartan Medoxomil Medoxomil Medoxomil 40 MG 40 MG 40 MG Xyzal Xyzal No Xyzal Singulair 5 Singulair 5 No Singulair MG MG 5 MG Estradiol Estradiol No Estradiol 0.1 MG/GM 0.1 MG/GM 0.1 MG/GM Caltrate Caltrate No 1{table BID Caltrate 600+D 600+D t} 600+D 600-400 600-400 600-400 MG-UNIT MG-UNIT MG-UNIT Alphagan P Alphagan P No Alphagan P 0.1 % 0.1 % 0.1 % Xarelto 15 Xarelto 15 No Xarelto 15 MG MG MG DULoxetine DULoxetine No DULoxetine HCl 20 MG HCl 20 MG HCl 20 MG Furosemide Furosemide No Furosemide 40 MG 40 MG 40 MG Tylenol 325 Tylenol 325 No 1{table 6xD Tylenol MG MG t_as_ne 325 MG eded} potassium potassium No potassium Olmesartan Olmesartan No 1{table QD Olmesartan Medoxomil-H Medoxomil-H t} Medoxomil- CTZ 40-25 CTZ 40-25 HCTZ 40-25 MG MG MG Atorvastati Atorvastati No Atorvastat n Calcium n Calcium in Calcium 40 MG 40 MG 40 MG dilTIAZem dilTIAZem No dilTIAZem HCl ER 60 HCl ER 60 HCl ER 60 MG MG MG Cranberry Cranberry No Cranberry 500 MG 500 MG 500 MG metOLazone metOLazone No metOLazone 5 MG 5 MG 5 MG Tylenol 325 Tylenol 325 No 1{table 6xD Tylenol MG MG t_as_ne 325 MG eded} DULoxetine DULoxetine No DULoxetine HCl 20 MG HCl 20 MG HCl 20 MG Olmesartan Olmesartan No Olmesartan Medoxomil Medoxomil Medoxomil 40 MG 40 MG 40 MG Singulair 5 Singulair 5 No Singulair MG MG 5 MG Caltrate Caltrate No 1{table BID Caltrate 600+D 600+D t} 600+D 600-400 600-400 600-400 MG-UNIT MG-UNIT MG-UNIT Estradiol Estradiol No Estradiol 0.1 MG/GM 0.1 MG/GM 0.1 MG/GM Xarelto 15 Xarelto 15 No Xarelto 15 MG MG MG Alphagan P Alphagan P No Alphagan P 0.1 % 0.1 % 0.1 % Furosemide Furosemide No Furosemide 40 MG 40 MG 40 MG Atorvastati Atorvastati No Atorvastat n Calcium n Calcium in Calcium 40 MG 40 MG 40 MG Xyzal Xyzal No Xyzal dilTIAZem dilTIAZem No dilTIAZem HCl ER 60 HCl ER 60 HCl ER 60 MG MG MG metOLazone metOLazone No metOLazone 5 MG 5 MG 5 MG Cranberry Cranberry No Cranberry 500 MG 500 MG 500 MG potassium potassium No potassium Olmesartan Olmesartan No 1{table QD Olmesartan Medoxomil-H Medoxomil-H t} Medoxomil- CTZ 40-25 CTZ 40-25 HCTZ 40-25 MG MG MG Tylenol 325 Tylenol 325 No 1{table 6xD Tylenol MG MG t_as_ne 325 MG eded} DULoxetine DULoxetine No DULoxetine HCl 20 MG HCl 20 MG HCl 20 MG Olmesartan Olmesartan No Olmesartan Medoxomil Medoxomil Medoxomil 40 MG 40 MG 40 MG Singulair 5 Singulair 5 No Singulair MG MG 5 MG Caltrate Caltrate No 1{table BID Caltrate 600+D 600+D t} 600+D 600-400 600-400 600-400 MG-UNIT MG-UNIT MG-UNIT Estradiol Estradiol No Estradiol 0.1 MG/GM 0.1 MG/GM 0.1 MG/GM Xarelto 15 Xarelto 15 No Xarelto 15 MG MG MG Alphagan P Alphagan P No Alphagan P 0.1 % 0.1 % 0.1 % Furosemide Furosemide No Furosemide 40 MG 40 MG 40 MG Atorvastati Atorvastati No Atorvastat n Calcium n Calcium in Calcium 40 MG 40 MG 40 MG Xyzal Xyzal No Xyzal dilTIAZem dilTIAZem No dilTIAZem HCl ER 60 HCl ER 60 HCl ER 60 MG MG MG metOLazone metOLazone No metOLazone 5 MG 5 MG 5 MG Cranberry Cranberry No Cranberry 500 MG 500 MG 500 MG potassium potassium No potassium Olmesartan Olmesartan No 1{table QD Olmesartan Medoxomil-H Medoxomil-H t} Medoxomil- CTZ 40-25 CTZ 40-25 HCTZ 40-25 MG MG MG Cranberry Cranberry No Cranberry 500 MG 500 MG 500 MG Tylenol 325 Tylenol 325 No 1{table 6xD Tylenol MG MG t_as_ne 325 MG eded} Atorvastati Atorvastati No Atorvastat n Calcium n Calcium in Calcium 40 MG 40 MG 40 MG Xyzal Xyzal No Xyzal DULoxetine DULoxetine No DULoxetine HCl 20 MG HCl 20 MG HCl 20 MG metOLazone metOLazone No metOLazone 5 MG 5 MG 5 MG Singulair 5 Singulair 5 No Singulair MG MG 5 MG Xarelto 15 Xarelto 15 No Xarelto 15 MG MG MG potassium potassium No potassium Furosemide Furosemide No Furosemide 40 MG 40 MG 40 MG Alphagan P Alphagan P No Alphagan P 0.1 % 0.1 % 0.1 % Olmesartan Olmesartan No Olmesartan Medoxomil Medoxomil Medoxomil 40 MG 40 MG 40 MG Caltrate Caltrate No 1{table BID Caltrate 600+D 600+D t} 600+D 600-400 600-400 600-400 MG-UNIT MG-UNIT MG-UNIT Olmesartan Olmesartan No 1{table QD Olmesartan Medoxomil-H Medoxomil-H t} Medoxomil- CTZ 40-25 CTZ 40-25 HCTZ 40-25 MG MG MG dilTIAZem dilTIAZem No dilTIAZem HCl ER 60 HCl ER 60 HCl ER 60 MG MG MG Estradiol Estradiol No Estradiol 0.1 MG/GM 0.1 MG/GM 0.1 MG/GM Cranberry Cranberry No Cranberry 500 MG 500 MG 500 MG Tylenol 325 Tylenol 325 No 1{table 6xD Tylenol MG MG t_as_ne 325 MG eded} Atorvastati Atorvastati No Atorvastat n Calcium n Calcium in Calcium 40 MG 40 MG 40 MG Xyzal Xyzal No Xyzal DULoxetine DULoxetine No DULoxetine HCl 20 MG HCl 20 MG HCl 20 MG metOLazone metOLazone No metOLazone 5 MG 5 MG 5 MG Singulair 5 Singulair 5 No Singulair MG MG 5 MG Xarelto 15 Xarelto 15 No Xarelto 15 MG MG MG potassium potassium No potassium Furosemide Furosemide No Furosemide 40 MG 40 MG 40 MG Alphagan P Alphagan P No Alphagan P 0.1 % 0.1 % 0.1 % Olmesartan Olmesartan No Olmesartan Medoxomil Medoxomil Medoxomil 40 MG 40 MG 40 MG Caltrate Caltrate No 1{table BID Caltrate 600+D 600+D t} 600+D 600-400 600-400 600-400 MG-UNIT MG-UNIT MG-UNIT Olmesartan Olmesartan No 1{table QD Olmesartan Medoxomil-H Medoxomil-H t} Medoxomil- CTZ 40-25 CTZ 40-25 HCTZ 40-25 MG MG MG dilTIAZem dilTIAZem No dilTIAZem HCl ER 60 HCl ER 60 HCl ER 60 MG MG MG Estradiol Estradiol No Estradiol 0.1 MG/GM 0.1 MG/GM 0.1 MG/GM dilTIAZem dilTIAZem No dilTIAZem HCl ER 60 HCl ER 60 HCl ER 60 MG MG MG Estradiol Estradiol No Estradiol 0.1 MG/GM 0.1 MG/GM 0.1 MG/GM metOLazone metOLazone No metOLazone 5 MG 5 MG 5 MG Olmesartan Olmesartan No Olmesartan Medoxomil Medoxomil Medoxomil 40 MG 40 MG 40 MG Furosemide Furosemide No Furosemide 40 MG 40 MG 40 MG Olmesartan Olmesartan No 1{table QD Olmesartan Medoxomil-H Medoxomil-H t} Medoxomil- CTZ 40-25 CTZ 40-25 HCTZ 40-25 MG MG MG Singulair 5 Singulair 5 No Singulair MG MG 5 MG Cranberry Cranberry No Cranberry 500 MG 500 MG 500 MG Xarelto 15 Xarelto 15 No Xarelto 15 MG MG MG Xyzal Xyzal No Xyzal DULoxetine DULoxetine No DULoxetine HCl 20 MG HCl 20 MG HCl 20 MG Alphagan P Alphagan P No Alphagan P 0.1 % 0.1 % 0.1 % potassium potassium No potassium Caltrate Caltrate No 1{table BID Caltrate 600+D 600+D t} 600+D 600-400 600-400 600-400 MG-UNIT MG-UNIT MG-UNIT Tylenol 325 Tylenol 325 No 1{table 6xD Tylenol MG MG t_as_ne 325 MG eded} Atorvastati Atorvastati No Atorvastat n Calcium n Calcium in Calcium 40 MG 40 MG 40 MG dilTIAZem dilTIAZem No dilTIAZem HCl ER 60 HCl ER 60 HCl ER 60 MG MG MG Estradiol Estradiol No Estradiol 0.1 MG/GM 0.1 MG/GM 0.1 MG/GM metOLazone metOLazone No metOLazone 5 MG 5 MG 5 MG Olmesartan Olmesartan No Olmesartan Medoxomil Medoxomil Medoxomil 40 MG 40 MG 40 MG Furosemide Furosemide No Furosemide 40 MG 40 MG 40 MG Olmesartan Olmesartan No 1{table QD Olmesartan Medoxomil-H Medoxomil-H t} Medoxomil- CTZ 40-25 CTZ 40-25 HCTZ 40-25 MG MG MG Singulair 5 Singulair 5 No Singulair MG MG 5 MG Cranberry Cranberry No Cranberry 500 MG 500 MG 500 MG Xarelto 15 Xarelto 15 No Xarelto 15 MG MG MG Xyzal Xyzal No Xyzal DULoxetine DULoxetine No DULoxetine HCl 20 MG HCl 20 MG HCl 20 MG Alphagan P Alphagan P No Alphagan P 0.1 % 0.1 % 0.1 % potassium potassium No potassium Caltrate Caltrate No 1{table BID Caltrate 600+D 600+D t} 600+D 600-400 600-400 600-400 MG-UNIT MG-UNIT MG-UNIT Tylenol 325 Tylenol 325 No 1{table 6xD Tylenol MG MG t_as_ne 325 MG eded} Atorvastati Atorvastati No Atorvastat n Calcium n Calcium in Calcium 40 MG 40 MG 40 MG Olmesartan Olmesartan No Olmesartan Medoxomil Medoxomil Medoxomil 40 MG 40 MG 40 MG dilTIAZem dilTIAZem No dilTIAZem HCl ER 60 HCl ER 60 HCl ER 60 MG MG MG metOLazone metOLazone No metOLazone 5 MG 5 MG 5 MG Furosemide Furosemide No Furosemide 40 MG 40 MG 40 MG Olmesartan Olmesartan No 1{table QD Olmesartan Medoxomil-H Medoxomil-H t} Medoxomil- CTZ 40-25 CTZ 40-25 HCTZ 40-25 MG MG MG Singulair 5 Singulair 5 No Singulair MG MG 5 MG Cranberry Cranberry No Cranberry 500 MG 500 MG 500 MG Xarelto 15 Xarelto 15 No Xarelto 15 MG MG MG Xyzal Xyzal No Xyzal DULoxetine DULoxetine No DULoxetine HCl 20 MG HCl 20 MG HCl 20 MG Alphagan P Alphagan P No Alphagan P 0.1 % 0.1 % 0.1 % potassium potassium No potassium Caltrate Caltrate No 1{table BID Caltrate 600+D 600+D t} 600+D 600-400 600-400 600-400 MG-UNIT MG-UNIT MG-UNIT Tylenol 325 Tylenol 325 No 1{table 6xD Tylenol MG MG t_as_ne 325 MG eded} Atorvastati Atorvastati No Atorvastat n Calcium n Calcium in Calcium 40 MG 40 MG 40 MG Estradiol Estradiol No Estradiol 0.1 MG/GM 0.1 MG/GM 0.1 MG/GM Olmesartan Olmesartan No Olmesartan Medoxomil Medoxomil Medoxomil 40 MG 40 MG 40 MG dilTIAZem dilTIAZem No dilTIAZem HCl ER 60 HCl ER 60 HCl ER 60 MG MG MG metOLazone metOLazone No metOLazone 5 MG 5 MG 5 MG Furosemide Furosemide No Furosemide 40 MG 40 MG 40 MG Olmesartan Olmesartan No 1{table QD Olmesartan Medoxomil-H Medoxomil-H t} Medoxomil- CTZ 40-25 CTZ 40-25 HCTZ 40-25 MG MG MG Singulair 5 Singulair 5 No Singulair MG MG 5 MG Cranberry Cranberry No Cranberry 500 MG 500 MG 500 MG Xarelto 15 Xarelto 15 No Xarelto 15 MG MG MG Xyzal Xyzal No Xyzal DULoxetine DULoxetine No DULoxetine HCl 20 MG HCl 20 MG HCl 20 MG Alphagan P Alphagan P No Alphagan P 0.1 % 0.1 % 0.1 % potassium potassium No potassium Caltrate Caltrate No 1{table BID Caltrate 600+D 600+D t} 600+D 600-400 600-400 600-400 MG-UNIT MG-UNIT MG-UNIT Tylenol 325 Tylenol 325 No 1{table 6xD Tylenol MG MG t_as_ne 325 MG eded} Atorvastati Atorvastati No Atorvastat n Calcium n Calcium in Calcium 40 MG 40 MG 40 MG Estradiol Estradiol No Estradiol 0.1 MG/GM 0.1 MG/GM 0.1 MG/GM Olmesartan Olmesartan No Olmesartan Medoxomil Medoxomil Medoxomil 40 MG 40 MG 40 MG dilTIAZem dilTIAZem No dilTIAZem HCl ER 60 HCl ER 60 HCl ER 60 MG MG MG metOLazone metOLazone No metOLazone 5 MG 5 MG 5 MG Furosemide Furosemide No Furosemide 40 MG 40 MG 40 MG Olmesartan Olmesartan No 1{table QD Olmesartan Medoxomil-H Medoxomil-H t} Medoxomil- CTZ 40-25 CTZ 40-25 HCTZ 40-25 MG MG MG Singulair 5 Singulair 5 No Singulair MG MG 5 MG Cranberry Cranberry No Cranberry 500 MG 500 MG 500 MG Xarelto 15 Xarelto 15 No Xarelto 15 MG MG MG Xyzal Xyzal No Xyzal DULoxetine DULoxetine No DULoxetine HCl 20 MG HCl 20 MG HCl 20 MG Alphagan P Alphagan P No Alphagan P 0.1 % 0.1 % 0.1 % potassium potassium No potassium Caltrate Caltrate No 1{table BID Caltrate 600+D 600+D t} 600+D 600-400 600-400 600-400 MG-UNIT MG-UNIT MG-UNIT Tylenol 325 Tylenol 325 No 1{table 6xD Tylenol MG MG t_as_ne 325 MG eded} Atorvastati Atorvastati No Atorvastat n Calcium n Calcium in Calcium 40 MG 40 MG 40 MG Estradiol Estradiol No Estradiol 0.1 MG/GM 0.1 MG/GM 0.1 MG/GM DULoxetine DULoxetine No DULoxetine HCl 20 MG HCl 20 MG HCl 20 MG Furosemide Furosemide No Furosemide 40 MG 40 MG 40 MG metOLazone metOLazone No metOLazone 5 MG 5 MG 5 MG Cranberry Cranberry No Cranberry 500 MG 500 MG 500 MG Estradiol Estradiol No Estradiol 0.1 MG/GM 0.1 MG/GM 0.1 MG/GM Tylenol 325 Tylenol 325 No 1{table 6xD Tylenol MG MG t_as_ne 325 MG eded} Caltrate Caltrate No 1{table BID Caltrate 600+D 600+D t} 600+D 600-400 600-400 600-400 MG-UNIT MG-UNIT MG-UNIT Alphagan P Alphagan P No Alphagan P 0.1 % 0.1 % 0.1 % Xyzal Xyzal No Xyzal Olmesartan Olmesartan No Olmesartan Medoxomil Medoxomil Medoxomil 40 MG 40 MG 40 MG Olmesartan Olmesartan No 1{table QD Olmesartan Medoxomil-H Medoxomil-H t} Medoxomil- CTZ 40-25 CTZ 40-25 HCTZ 40-25 MG MG MG Atorvastati Atorvastati No Atorvastat n Calcium n Calcium in Calcium 40 MG 40 MG 40 MG dilTIAZem dilTIAZem No dilTIAZem HCl ER 60 HCl ER 60 HCl ER 60 MG MG MG Xarelto 15 Xarelto 15 No Xarelto 15 MG MG MG potassium potassium No potassium Singulair 5 Singulair 5 No Singulair MG MG 5 MG DULoxetine DULoxetine No DULoxetine HCl 20 MG HCl 20 MG HCl 20 MG Furosemide Furosemide No Furosemide 40 MG 40 MG 40 MG dilTIAZem dilTIAZem No dilTIAZem HCl ER 60 HCl ER 60 HCl ER 60 MG MG MG Xarelto 15 Xarelto 15 No Xarelto 15 MG MG MG Tylenol 325 Tylenol 325 No 1{table 6xD Tylenol MG MG t_as_ne 325 MG eded} Cranberry Cranberry No Cranberry 500 MG 500 MG 500 MG Singulair 5 Singulair 5 No Singulair MG MG 5 MG Atorvastati Atorvastati No Atorvastat n Calcium n Calcium in Calcium 40 MG 40 MG 40 MG Olmesartan Olmesartan No Olmesartan Medoxomil Medoxomil Medoxomil 40 MG 40 MG 40 MG Caltrate Caltrate No 1{table BID Caltrate 600+D 600+D t} 600+D 600-400 600-400 600-400 MG-UNIT MG-UNIT MG-UNIT metOLazone metOLazone No metOLazone 5 MG 5 MG 5 MG Estradiol Estradiol No Estradiol 0.1 MG/GM 0.1 MG/GM 0.1 MG/GM potassium potassium No potassium Olmesartan Olmesartan No 1{table QD Olmesartan Medoxomil-H Medoxomil-H t} Medoxomil- CTZ 40-25 CTZ 40-25 HCTZ 40-25 MG MG MG Alphagan P Alphagan P No Alphagan P 0.1 % 0.1 % 0.1 % Xyzal Xyzal No Xyzal DULoxetine DULoxetine No DULoxetine HCl 20 MG HCl 20 MG HCl 20 MG Furosemide Furosemide No Furosemide 40 MG 40 MG 40 MG dilTIAZem dilTIAZem No dilTIAZem HCl ER 60 HCl ER 60 HCl ER 60 MG MG MG Xarelto 15 Xarelto 15 No Xarelto 15 MG MG MG Tylenol 325 Tylenol 325 No 1{table 6xD Tylenol MG MG t_as_ne 325 MG eded} Cranberry Cranberry No Cranberry 500 MG 500 MG 500 MG Singulair 5 Singulair 5 No Singulair MG MG 5 MG Atorvastati Atorvastati No Atorvastat n Calcium n Calcium in Calcium 40 MG 40 MG 40 MG Olmesartan Olmesartan No Olmesartan Medoxomil Medoxomil Medoxomil 40 MG 40 MG 40 MG Caltrate Caltrate No 1{table BID Caltrate 600+D 600+D t} 600+D 600-400 600-400 600-400 MG-UNIT MG-UNIT MG-UNIT metOLazone metOLazone No metOLazone 5 MG 5 MG 5 MG Estradiol Estradiol No Estradiol 0.1 MG/GM 0.1 MG/GM 0.1 MG/GM potassium potassium No potassium Olmesartan Olmesartan No 1{table QD Olmesartan Medoxomil-H Medoxomil-H t} Medoxomil- CTZ 40-25 CTZ 40-25 HCTZ 40-25 MG MG MG Alphagan P Alphagan P No Alphagan P 0.1 % 0.1 % 0.1 % Xyzal Xyzal No Xyzal DULoxetine DULoxetine No DULoxetine HCl 20 MG HCl 20 MG HCl 20 MG Furosemide Furosemide No Furosemide 40 MG 40 MG 40 MG dilTIAZem dilTIAZem No dilTIAZem HCl ER 60 HCl ER 60 HCl ER 60 MG MG MG Xarelto 15 Xarelto 15 No Xarelto 15 MG MG MG Tylenol 325 Tylenol 325 No 1{table 6xD Tylenol MG MG t_as_ne 325 MG eded} Cranberry Cranberry No Cranberry 500 MG 500 MG 500 MG Singulair 5 Singulair 5 No Singulair MG MG 5 MG Atorvastati Atorvastati No Atorvastat n Calcium n Calcium in Calcium 40 MG 40 MG 40 MG Olmesartan Olmesartan No Olmesartan Medoxomil Medoxomil Medoxomil 40 MG 40 MG 40 MG Caltrate Caltrate No 1{table BID Caltrate 600+D 600+D t} 600+D 600-400 600-400 600-400 MG-UNIT MG-UNIT MG-UNIT metOLazone metOLazone No metOLazone 5 MG 5 MG 5 MG Estradiol Estradiol No Estradiol 0.1 MG/GM 0.1 MG/GM 0.1 MG/GM potassium potassium No potassium Olmesartan Olmesartan No 1{table QD Olmesartan Medoxomil-H Medoxomil-H t} Medoxomil- CTZ 40-25 CTZ 40-25 HCTZ 40-25 MG MG MG Alphagan P Alphagan P No Alphagan P 0.1 % 0.1 % 0.1 % Xyzal Xyzal No Xyzal Immunizations Ordered Filled Immunization Date Status Comments [facility] e Immunization Name Name SARS-COV-2 COVID-19 2022-03-05 Completed [facility] of MODERNA 0.25ML 00:00:00 [place] [facility] SARS-COV-2 COVID-19 2022-03-05 Completed Unive rsity of MODERNA 0.25ML 00:00:00 [place] [facility] VACCINE [facility] SARS-COV-2 COVID-19 2022-03-05 Completed Unive rsity of MODERNA 0.25ML 00:00:00 [place] [facility] VACCINE Branch SARS-COV-2 COVID-19 2021-10-04 Completed Unive rsity of MODERNA BOOSTER 00:00:00 [place] [facility] VACCINE Branch SARS-COV-2 COVID-19 2021-10-04 Completed Unive rsity of MODERNA 0.25ML 00:00:00 [place] [facility] BOOST[facility] VACCINE Branch SARS-COV-2 COVID-19 2021-10-04 Completed Unive rsity of MODERNA 0.25ML 00:00:00 [facility] catherine BOOSTER VACCINE Branch SARS-COV-2 COVID-19 2021-10-04 Completed Unive rsity of MODERNA 0.25ML 00:00:00 [facility] catherine BOOSTER VACCINE Branch Hyalgan 20 mg Hyalgan 20 mg 2021-04-27 Completed [facility] - 13:45:00 [facility] Hyalgan 20 mg Hyalgan 20 mg 2021-04-20 Completed [facility] - 14:05:00 [facility] Bupivicaine [place] Bupivicaine [place] 2021-04-12 [facility]pleted [facility] - 09:19:00 [facility] Kenalog Kenalog 2021-04-12 Completed [facility] - (Triamcinolone) (Triamcinolone) 09:19:00 [facility] Hyalgan 20 mg Hyalgan 20 mg 2021-04-12 Completed [facility] - 09:18:00 [facility] SARS-COV-2 COVID-19 2020-11-14 Completed Unive rsity of MODERNA VACCINE 00:00:00 [facility] ical Branch SARS-COV-2 COVID-19 2020-11-14 Completed Unive rsity of MODERNA VACCINE 00:00:00 [facility] SARS-COV-2 COVID-19 2020-11-14 Completed [facility]NA VACCINE 00:00:00 [facility]OV[facility]2 COVID-19 2020-11-14 Completed [facility] of MODERNA VACCINE 00:00:00 [facility] ical Branch SARS-COV-2 COVID-19 2020-11-14 Completed [facility] of MODERNA 12+ YRS 00:00:00 [facility] VACCINE Branch SARS-COV-2 COVID-19 2020-10-17 Completed [facility]NA VACCINE [facility]:00:00 [facility] COVID-19 2020-10-17 Completed [facility] of MODERNA VACCINE 00:00:00 [facility] SARS-COV-2 COVID-19 2020-10-17 Completed [facility] of MODERNA VACCINE 00:00:00 [facility] SARS-COV-2 COVID-19 2020-10-17 Completed [facility] of MODERNA VACCINE 00:00:00 [facility] SARS-COV-2 COVID-19 2020-10-17 Completed [facility] of MODERNA 12+ YRS 00:00:00 [facility] VACCINE Branch Kenalog Kenalog 2020-05-24 Completed [facility] - (Triamcinolone) (Triamcinolone) 11:26:00 [facility] Bupivicaine [place] 2020-05-24 [facility] 11:26:00 [facility] Gel-One Gel-One 2020-05-24 Completed [facility] - 11:22:00 [facility] PPD (TB) 2019-05-12 Completed [facility] 00:00:00 [facility] Pneumococcal 2019-05-12 Completed University o f Polysaccharide, 00:00:00 [place] [facility] PPSV23 (PNEUMOVAX) Branch PPD (TB) 2019-05-12 Completed University of 00:00:00 [facility] Pneumococcal 2019-05-12 Completed University o f Polysaccharide, 00:00:00 [place] [facility] PPSV23 (PNEUMOVAX) Branch PPD (TB) 2019-05-12 Completed University of 00:00:00 [facility] Pneumococcal 2019-05-12 Completed University o f Polysaccharide, 00:00:00 [place] [facility] PPSV23 (PNEUMOVAX) Branch PPD (TB) 2019-05-12 Completed [facility] of 00:00:00 [facility] Pneumococcal 2019-05-12 Completed University o f Polysaccharide, 00:00:00 [place] [facility] PPSV23 (PNEUMOVAX) Branch PPD (TB) 2019-05-12 Completed [facility] of 00:00:00 [facility] Pneumococcal 2019-05-12 Completed University o f Polysaccharide, 00:00:00 [place] [facility] PPSV23 (PNEUMOVAX) Branch PPD (TB) 2019-05-12 Completed [facility] 00:00:00 [facility] Pneumococcal 2019-05-12 Completed University o f Polysaccharide, 00:00:00 [place] [facility] PPSV23 (PNEUMOVAX) Branch PPD (TB) 2019-05-12 Completed [facility] of 00:00:00 [facility] Pneumococcal 2019-05-12 Completed University o f Polysaccharide, 00:00:00 [place] [facility] PPSV23 (PNEUMOVAX) Branch PPD (TB) 2019-05-12 Completed [facility] of 00:00:00 [facility] Pneumococcal 2019-05-12 Completed University o f Polysaccharide, 00:00:00 [place] [facility] PPSV23 (PNEUMOVAX) Branch PPD (TB) 2019-05-12 Completed [facility] of 00:00:00 [facility] Pneumococcal 2019-05-12 Completed University o f Polysaccharide, 00:00:00 [place] [facility] PPSV23 (PNEUMOVAX) Branch PPD (TB) 2019-05-12 Completed [facility] 00:00:00 [facility] Pneumococcal 2019-05-12 Completed University o f Polysaccharide, 00:00:00 [place] [facility] PPSV23 (PNEUMOVAX) Branch PPD (TB) 2019-05-12 Completed [facility] of 00:00:00 [facility] Pneumococcal 2019-05-12 Completed University o f Polysaccharide, 00:00:00 [place] [facility] PPSV23 (PNEUMOVAX) Branch PPD (TB) 2019-05-12 Completed [facility] 00:00:00 [facility] Pneumococcal 2019-05-12 Completed University o f Polysaccharide, 00:00:00 [place] [facility] PPSV23 (PNEUMOVAX) Branch PPD (TB) 2019-05-12 Completed [facility] 00:00:00 [facility] Pneumococcal 2019-05-12 Completed University o f Polysaccharide, 00:00:00 [place] [facility] PPSV23 (PNEUMOVAX) Branch PPD (TB) 2019-05-12 Completed [facility] of 00:00:00 [facility] Pneumococcal 2019-05-12 Completed University o f Polysaccharide, 00:00:00 [place] [facility] PPSV23 (PNEUMOVAX) Branch PPD (TB) 2019-05-12 Completed University of 00:00:00 [facility] Pneumococcal 2019-05-12 Completed University o f Polysaccharide, 00:00:00 [place] [facility] PPSV23 (PNEUMOVAX) Branch PPD (TB) 2019-05-12 Completed [facility] of 00:00:00 [facility] Pneumococcal 2019-05-12 Completed University o f Polysaccharide, 00:00:00 [place] [facility] PPSV23 (PNEUMOVAX) Branch PPD (TB) 2019-05-12 Completed [facility] of 00:00:00 [facility] Pneumococcal 2019-05-12 Completed University o f Polysaccharide, 00:00:00 [place] [facility] PPSV23 (PNEUMOVAX) Branch PPD (TB) 2019-05-12 Completed [facility] of 00:00:00 [facility] Pneumococcal 2019-05-12 Completed University o f Polysaccharide, 00:00:00 [place] [facility] PPSV23 (PNEUMOVAX) Branch PPD (TB) 2019-05-12 Completed University of 00:00:00 [facility] Pneumococcal 2019-05-12 Completed University o f Polysaccharide, 00:00:00 [place] [facility] PPSV23 (PNEUMOVAX) Branch PPD (TB) 2019-05-12 Completed University of 00:00:00 [facility] Pneumococcal 2019-05-12 Completed University o f Polysaccharide, 00:00:00 [facility] ical PPSV23 (PNEUMOVAX) Branch PPD (TB) 2019-05-12 Completed University of 00:00:00 [facility] Pneumococcal 2019-05-12 Completed University o f Polysaccharide, 00:00:00 [facility] ical PPSV23 (PNEUMOVAX) Branch LIDOCAINE HCL LIDOCAINE HCL 2019-03-26 [facility]/ML 10MG/ML 08:34:00 [facility] Euflexxa Euflexxa 2019-03-26 Completed [facility] - 08:33:00 [facility] LIDOCAINE HCL LIDOCAINE HCL 2019-03-19 Completed [facility] - 10[facility]/ML 10MG/ML 14:16:00 [facility] Euflexxa Euflexxa 2019-03-19 Completed [facility] - 14:15:00 [facility] LIDOCAINE HCL LIDOCAINE HCL 2019-03-12 Completed [facility] - 10MG/ML 10MG/ML 15:13:00 [facility] Euflexxa Euflexxa 2019-03-12 Completed [facility] - 15:12:00 [facility] Influenza Virus 2018-07-14 Completed Universit y of Vaccine 00:00:00 [facility] Influenza Virus 2018-07-14 Completed Universit y of Vaccine 00:00:00 [facility] Influenza Virus 2018-07-14 Completed Universit y of Vaccine 00:00:00 [facility] Influenza Virus 2018-07-14 Completed Universit y of Vaccine 00:00:00 [facility] Influenza Virus 2018-07-14 Completed Universit y of Vaccine 00:00:00 [facility] Influenza Virus 2018-07-14 Completed Universit y of Vaccine 00:00:00 [facility] Influenza Virus 2018-07-14 Completed Universit y of Vaccine 00:00:00 [facility] Influenza Virus 2018-07-14 Completed Universit y of Vaccine 00:00:00 [facility] Influenza Virus 2018-07-14 Completed Universit y of Vaccine 00:00:00 [facility] Influenza Virus 2018-07-14 Completed Universit y of Vaccine 00:00:00 [facility] Influenza Virus 2018-07-14 Completed Universit y of Vaccine 00:00:00 [facility] Influenza Virus 2018-07-14 Completed Universit y of Vaccine 00:00:00 [facility] Influenza Virus 2018-07-14 Completed Universit y of Vaccine 00:00:00 [facility] Influenza Virus 2018-07-14 Completed Universit y of Vaccine 00:00:00 [facility] Influenza Virus 2018-07-14 Completed Universit y of Vaccine 00:00:00 [facility] Influenza Virus 2018-07-14 Completed Universit y of Vaccine 00:00:00 [facility] Influenza Virus 2018-07-14 Completed Universit y of Vaccine 00:00:00 [facility] Influenza Virus 2018-07-14 Completed Universit y of Vaccine 00:00:00 [facility] Influenza Virus 2018-07-14 Completed Universit y of Vaccine 00:00:00 [facility] Influenza Virus 2018-07-14 Completed Universit y of Vaccine 00:00:00 [facility] Influenza Virus 2018-07-14 Completed Universit y of Vaccine 00:00:00 [facility] Influenza High Dose 2017-07-27 Completed Unive rsity of 00:00:00 [facility] Influenza High Dose 2017-07-27 Completed Unive rsity of 00:00:00 [facility] Influenza High Dose 2017-07-27 Completed Unive rsity of 00:00:00 [facility] Influenza High Dose 2017-07-27 Completed Unive rsity of 00:00:00 [facility] Influenza High Dose 2017-07-27 Completed Unive rsity of 00:00:00 [facility] Influenza High Dose 2017-07-27 Completed Unive rsity of 00:00:00 [facility] Influenza High Dose 2017-07-27 Completed Unive rsity of 00:00:00 [facility] Influenza High Dose 2017-07-27 Completed Unive rsity of 00:00:00 [facility] Influenza High Dose 2017-07-27 Completed Unive rsity of 00:00:00 [facility] Influenza High Dose 2017-07-27 Completed Unive rsity of 00:00:00 [facility] Influenza High Dose 2017-07-27 Completed Unive rsity of 00:00:00 [facility] Influenza High Dose 2017-07-27 Completed Unive rsity of 00:00:00 [facility] Influenza High Dose 2017-07-27 Completed Unive rsity of 00:00:00 [facility] Influenza High Dose 2017-07-27 Completed Unive rsity of 00:00:00 [facility] Influenza High Dose 2017-07-27 Completed Unive rsity of 00:00:00 [facility] Influenza High Dose 2017-07-27 Completed Unive rsity of 00:00:00 [facility] Influenza High Dose 2017-07-27 Completed Unive rsity of 00:00:00 [facility] Influenza High Dose 2017-07-27 Completed Unive rsity of 00:00:00 [facility] Influenza High Dose 2017-07-27 Completed Unive rsity of 00:00:00 [facility] Influenza High Dose 2017-07-27 Completed Unive rsity of 00:00:00 [facility] Influenza High Dose 2017-07-27 Completed Unive rsity of 00:00:00 [facility] DTAP 2016-09-11 Completed University of 00:00:00 [facility] Pneumococcal 13 2016-09-11 Completed Universit y of Conjugate, PCV13 00:00:00 [facility] dical (Prevnar 13) Branch DTAP 2016-09-11 Completed University of 00:00:00 [facility] Pneumococcal 13 2016-09-11 Completed Universit y of Conjugate, PCV13 00:00:00 [facility] dical (Prevnar 13) Branch DTAP 2016-09-11 Completed University of 00:00:00 [facility] Pneumococcal 13 2016-09-11 Completed Universit y of Conjugate, PCV13 00:00:00 [facility] dical (Prevnar 13) Branch DTAP 2016-09-11 Completed University of 00:00:00 [facility] Pneumococcal 13 2016-09-11 Completed Universit y of Conjugate, PCV13 00:00:00 [facility] dical (Prevnar 13) Branch DTAP 2016-09-11 Completed University of 00:00:00 [facility] Pneumococcal 13 2016-09-11 Completed Universit y of Conjugate, PCV13 00:00:00 [facility] dical (Prevnar 13) Branch DTAP 2016-09-11 Completed University of 00:00:00 [facility] Pneumococcal 13 2016-09-11 Completed Universit y of Conjugate, PCV13 00:00:00 [facility] dical (Prevnar 13) Branch DTAP 2016-09-11 Completed University of 00:00:00 [facility] Pneumococcal 13 2016-09-11 Completed Universit y of Conjugate, PCV13 00:00:00 [facility] dical (Prevnar 13) Branch DTAP 2016-09-11 Completed University of 00:00:00 [facility] Pneumococcal 13 2016-09-11 Completed Universit y of Conjugate, PCV13 00:00:00 [facility] dical (Prevnar 13) Branch DTAP 2016-09-11 Completed University of 00:00:00 [facility] Pneumococcal 13 2016-09-11 Completed Universit y of Conjugate, PCV13 00:00:00 [facility] dical (Prevnar 13) Branch DTAP 2016-09-11 Completed University of 00:00:00 [facility] Pneumococcal 13 2016-09-11 Completed Universit y of Conjugate, PCV13 00:00:00 [facility] dical (Prevnar 13) Branch DTAP 2016-09-11 Completed University of 00:00:00 [facility] Pneumococcal 13 2016-09-11 Completed Universit y of Conjugate, PCV13 00:00:00 [facility] dical (Prevnar 13) Branch AP 2016-09-11 Completed University of 00:00:00 [facility] Pneumococcal 13 2016-09-11 Completed Universit y of Conjugate, PCV13 00:00:00 [facility] dical (Prevnar 13) Branch AP 2016-09-11 Completed University of 00:00:00 [facility] Pneumococcal 13 2016-09-11 Completed Universit y of Conjugate, PCV13 00:00:00 [facility] dical (Prevnar 13) Branch AP 2016-09-11 Completed University of 00:00:00 [facility] Pneumococcal 13 2016-09-11 Completed Universit y of Conjugate, PCV13 00:00:00 [facility] dical (Prevnar 13) Branch DTAP 2016-09-11 Completed University of 00:00:00 [facility] Pneumococcal 13 2016-09-11 Completed Universit y of Conjugate, PCV13 00:00:00 [facility] dical (Prevnar 13) Branch DTAP 2016-09-11 Completed University of 00:00:00 [facility] Pneumococcal 13 2016-09-11 Completed Universit y of Conjugate, PCV13 00:00:00 [facility] dical (Prevnar 13) Branch AP 2016-09-11 Completed University of 00:00:00 [facility] Pneumococcal 13 2016-09-11 Completed Universit y of Conjugate, PCV13 00:00:00 [facility] dical (Prevnar 13) Branch [facility] 2016-09-11 Completed University of 00:00:00 [facility] Pneumococcal 13 2016-09-11 Completed Universit y of Conjugate, PCV13 00:00:00 [facility] dical (Prevnar 13) Branch DTAP 2016-09-11 Completed University of 00:00:00 [facility] Pneumococcal 13 2016-09-11 Completed Universit y of Conjugate, PCV13 00:00:00 [facility] dical (Prevnar 13) Branch DTAP 2016-09-11 Completed University of 00:00:00 [facility] Pneumococcal 13 2016-09-11 Completed Universit y of Conjugate, PCV13 00:00:00 [facility] dical (Prevnar 13) Branch DTAP 2016-09-11 Completed University of 00:00:00 [facility] Pneumococcal 13 2016-09-11 Completed Universit y of Conjugate, PCV13 00:00:00 [facility] dical (Prevnar 13) Branch Influenza High Dose 2016-07-02 Completed Unive rsity of 00:00:00 [facility] Influenza High Dose 2016-07-02 Completed Unive rsity of 00:00:00 [facility] Influenza High Dose 2016-07-02 Completed Unive rsity of 00:00:00 [facility] Influenza High Dose 2016-07-02 Completed Unive rsity of 00:00:00 [facility] Influenza High Dose 2016-07-02 Completed Unive rsity of 00:00:00 [facility] Influenza High Dose 2016-07-02 Completed Unive rsity of 00:00:00 [facility] Influenza High Dose 2016-07-02 Completed Unive rsity of 00:00:00 [facility] Influenza High Dose 2016-07-02 Completed Unive rsity of 00:00:00 [facility] Influenza High Dose 2016-07-02 Completed Unive rsity of 00:00:00 [facility] Influenza High Dose 2016-07-02 Completed Unive rsity of 00:00:00 [facility] Influenza High Dose 2016-07-02 Completed Unive rsity of 00:00:00 [facility] Influenza High Dose 2016-07-02 Completed Unive rsity of 00:00:00 [facility] Influenza High Dose 2016-07-02 Completed Unive rsity of 00:00:00 [facility] Influenza High Dose 2016-07-02 Completed Unive rsity of 00:00:00 [facility] Influenza High Dose 2016-07-02 Completed Unive rsity of 00:00:00 [facility] Influenza High Dose 2016-07-02 Completed Unive rsity of 00:00:00 [facility] Influenza High Dose 2016-07-02 Completed Unive rsity of 00:00:00 [facility] Influenza High Dose 2016-07-02 Completed Unive rsity of 00:00:00 [facility] Influenza High Dose 2016-07-02 Completed Unive rsity of 00:00:00 [facility] Influenza High Dose 2016-07-02 Completed Unive rsity of 00:00:00 [facility] Influenza High Dose 2016-07-02 Completed Unive rsity of 00:00:00 [facility] Zoster(Zostavax)( 2013-09-22 Completed Unive rsity of ingles) 00:00:00 [facility] Zoster(Zostavax)( 2013-09-22 Completed Unive rsity of ingles) 00:00:00 [facility] Zoster(Zostavax)( 2013-09-22 Completed Unive rsity of ingles) 00:00:00 [facility] Zoster(Zostavax)( 2013-09-22 Completed Unive rsity of ingles) 00:00:00 [facility] Zoster(Zostavax)( 2013-09-22 Completed Unive rsity of ingles) 00:00:00 [facility] Zoster(Zostavax)( 2013-09-22 Completed Unive rsity of ingles) 00:00:00 [facility] Zoster(Zostavax)( 2013-09-22 Completed Unive rsity of ingles) 00:00:00 [facility] Zoster(Zostavax)( 2013-09-22 Completed Unive rsity of ingles) 00:00:00 [facility] Zoster(Zostavax)( 2013-09-22 Completed Unive rsity of ingles) 00:00:00 [facility] Zoster(Zostavax)( 2013-09-22 Completed Unive rsity of ingles) 00:00:00 [facility] Zoster(Zostavax)( 2013-09-22 Completed Unive rsity of ingles) 00:00:00 [facility] Zoster(Zostavax)( 2013-09-22 Completed Unive rsity of ingles) 00:00:00 [facility] Zoster(Zostavax)( 2013-09-22 Completed Unive rsity of ingles) 00:00:00 [facility] Zoster(Zostavax)( 2013-09-22 Completed Unive rsity of ingles) 00:00:00 [facility] Zoster(Zostavax)( 2013-09-22 Completed Unive rsity of ingles) 00:00:00 [facility] Zoster(Zostavax)( 2013-09-22 Completed Unive rsity of ingles) 00:00:00 [facility] Zoster(Zostavax)( 2013-09-22 Completed Unive rsity of ingles) 00:00:00 [facility] Zoster(Zostavax)( 2013-09-22 Completed Unive rsity of ingles) 00:00:00 [facility] Zoster(Zostavax)( 2013-09-22 Completed Unive rsity of ingles) 00:00:00 [facility] Zoster(Zostavax)( 2013-09-22 Completed Unive rsity of ingles) 00:00:00 [facility] Zoster(Zostavax)( 2013-09-22 Completed Unive rsity of ingles) 00:00:00 [facility] Vital Signs Vital Name Observation Time Observation Value Comments Source height 2022-07-09 10:45:00 64.5 [in_i] [facility] weight 2022-07-09 10:45:00 162 [lb_av] [facility] temperature 2022-07-09 10:45:00 97.7 [degF] [facility] bmi 2022-07-09 10:45:00 27.37 kg/m2 [facility] blood pressure 2022-07-09 10:45:00 116 mm[Hg] [facility] - systolic [facility] blood pressure 2022-07-09 10:45:00 72 mm[Hg] [facility] - diastolic [facility] height 2021-12-28 13:30:00 64.5 [in_i] [facility] weight 2021-12-28 13:30:00 170 [lb_av] [facility] temperature 2021-12-28 13:30:00 97.3 [degF] [facility] bmi 2021-12-28 13:30:00 28.73 kg/m2 [facility] oximetry 2021-12-28 13:30:00 97 % [facility] respiratory rate 2021-12-28 13:30:00 16 /min [facility] blood pressure 2021-12-28 13:30:00 119 mm[Hg] [facility] - systolic [facility] blood pressure 2021-12-28 13:30:00 78 mm[Hg] [facility] - diastolic [facility] height 2021-09-28 15:45:00 64.5 [in_i] [facility] weight 2021-09-28 15:45:00 173 [lb_av] [facility] temperature 2021-09-28 15:45:00 97.8 [degF] [facility] bmi 2021-09-28 15:45:00 30.42 kg/m2 [facility] oximetry 2021-09-28 15:45:00 99 % [facility] respiratory rate 2021-09-28 15:45:00 18 /min [facility] blood pressure 2021-09-28 15:45:00 137 mm[Hg] [facility] - systolic [facility] blood pressure 2021-09-28 15:45:00 66 mm[Hg] [facility] - diastolic [facility] Systolic blood 2021-09-16 19:00:00 155 mm[Hg] Univer sity of pressure [facility] Diastolic blood 2021-09-16 19:00:00 57 mm[Hg] Unive rsity of pressure [facility] Heart rate 2021-09-16 19:00:00 54 /min [facility] Respiratory rate 2021-09-16 19:00:00 17 /min [facility] in 2021-09-16 19:00:00 98 /min [facility] Arterial blood by [facility] Pulse oximetry Branch Body temperature 2021-09-16 17:42:00 36.72 Nicole [facility] Body height 2021-09-16 17:42:00 167.6 cm [facility] Body weight 2021-09-16 17:42:00 76.204 kg Universi ty [facility] BMI 2021-09-16 17:42:00 27.12 kg/m2 [facility] height 2021-07-26 10:20:00 64.5 [in_i] [facility] weight 2021-07-26 10:20:00 180 [lb_av] [facility] temperature 2021-07-26 10:20:00 98.0 [degF] [facility] bmi 2021-07-26 10:20:00 30.42 kg/m2 [facility] oximetry 2021-07-26 10:20:00 93 % [facility] blood pressure 2021-07-26 10:20:00 147 mm[Hg] [facility] - systolic [facility] blood pressure 2021-07-26 10:20:00 89 mm[Hg] [facility] - diastolic [facility] Systolic blood 2019-11-09 18:57:00 131 mm[Hg] Univer sity of pressure [facility] Diastolic blood 2019-11-09 18:57:00 81 mm[Hg] Unive rsity of pressure [facility] Heart rate 2019-11-09 18:57:00 90 /min [facility] Body temperature 2019-11-09 18:57:00 36.17 Nicole [facility] Respiratory rate 2019-11-09 18:57:00 20 /min [facility] Body height 2019-11-09 18:57:00 165.1 cm [facility] Body weight 2019-11-09 18:57:00 76.2 kg [facility] BMI 2019-11-09 18:57:00 27.96 kg/m2 [facility] Systolic blood 2019-11-09 18:57:00 131 mm[Hg] Univer sity of pressure [facility] Diastolic blood 2019-11-09 18:57:00 81 mm[Hg] Unive rsity of pressure [facility] Heart rate 2019-11-09 18:57:00 90 /min [facility] Body temperature 2019-11-09 18:57:00 36.17 Nicole [facility] ersity of [facility] Respiratory rate 2019-11-09 18:57:00 20 /min [facility] ersity of [facility] Body height 2019-11-09 18:57:00 165.1 cm [facility] [place] Body weight 2019-11-09 18:57:00 76.2 kg [facility] BMI 2019-11-09 18:57:00 27.96 kg/m2 [facility] Body temperature 2019-05-14 20:50:00 35.72 Nicole [facility] ersity of [facility] Body temperature 2019-05-12 18:28:00 36.22 Nicole [facility] ersity of [facility] Body weight 2019-05-12 18:28:00 72.621 kg [facility] BMI 2019-05-12 18:28:00 25.84 kg/m2 [facility]i ty of [facility] Procedures Procedure Date / Time Performing Clinician Source Performed SARS-COV-2 COVID-19 2022-03-05 20:48:52 Doctor Unassigned, No [facility] [place] VACCINE Name Medical Branch BOOSTER,0.25ML,IM (MODERNA) SARS-COV-2 COVID-19 2021-10-04 22:31:03 Doctor Unassigned, No [facility] [place] VACCINE Name Medical Branch BOOSTER,0.25ML,IM (MODERNA) URINALYSIS 2021-09-16 18:12:00 Elif Andino [facility] NOTICE OF PRIVACY 2021-09-16 17:32:53 Doctor Unassigned, No [facility] CONSENT/REFUSAL FOR 2021-09-16 17:32:23 Doctor Unassigned, No [facility] [place] DIAGNOSIS AND TREATMENT Name Medical Branch SCANNED LAB RESULTS 2019-11-09 06:01:00 Doctor Unassigned, No [facility] [place] Name Medical Branch PPD (TB) 2019-05-12 19:26:19 Irma Pennington [facility] Branch PNEUMOCOCCAL VACCINE, 2019-05-12 19:26:19 Irma Pennington [facility] 23-VALENT (PNEUMOVAX) A Medical Br anch Encounters Start End Encounter Admission Attending Care Care Encounter Source Date/Time Date/Time Type Type Clinicians Facility Department ID 2022-07-13 Outpatient Banks, STLMLC STLMLC [id number] Common 11:31:01 Mauri [facility] 2022-07-09 Outpatient Banks, STLMLC STLMLC [id number] Common 11:53:01 Mauri [facility] 2022-06-21 Outpatient Banks, STLMLC STLMLC [id number] Common 15:39:00 Mauri [facility] 2022-02-19 Outpatient Banks, STLMLC STLMLC [id number] Common 08:38:01 Mauri [facility] 2021-11-08 Outpatient Banks, STLMLC STLMLC [id number] Common 14:35:19 Mauri [facility] 2021-11-08 Outpatient Banks, STLMLC STLMLC [id number] Common 13:45:19 Mauri [id number] [facility] 2021-11-08 Outpatient Banks, STLMLC STLMLC [id number] Common 13:43:26 Mauri [id number] [facility] 2021-11-08 Outpatient Banks, STLMLC STLMLC [id number] Common 12:53:23 Mauri [id number] [facility] 2021-11-08 Outpatient STLMLC STLMLC [id number] Common 11:35:39 [id number] [facility] 2021-11-08 Outpatient STLMLC STLMLC [id number] Common 11:32:21 [id number] [facility] 2021-11-08 Outpatient STLMLC STLMLC [id number] Common 11:28:02 [id number] [facility] 2022-07-11 2022-07-11 (TEL) STLMLC STLMLC [id number] Co mmon 00:00:00 00:00:00 [facility] 2022-07-09 2022-07-09 OFFICE STLMLC STLMLC [id number] Co mmon 00:00:00 00:00:00 VISIT [facility] LEVEL 4 [facility] 2022-06-13 2022-06-13 [facility] SCOTT Allen 1.2.840.114 [id number] Univers 16:28:00 23:59:00 Encounter Russ Barajas [id number] ity of BUILDING 4.2.7.2.686 Shine as [phone] [address] 2022-06-13 2022-06-13 [facility] [id number] Univers 00:00:00 23:59:00 RUSS ity [facility] 2022-06-01 2022-06-01 [facility] SCOTT Allen 1.2.840.114 [id number] Univers 15:00:00 23:59:00 Encounter Russ Barajas [id number] ity of [facility] 4.2.7.2.686 Shine as [phone] [address] 2022-06-01 2022-06-01 [facility] [id number] Univers 00:00:00 23:59:00 RUSS ity of [facility] 2022-03-08 2022-03-08 (TEL) STLMLC STLMLC [id number] Co mmon 00:00:00 00:00:00 [facility] 2022-03-05 2022-03-05 Imm/Inj Vaccine, Adc Family Medicine [facility] 1.2.840.114 [id number] Univers 16:00:00 16:10:00 Visit [facility]élix [facility].13 .[facility] 4.2.7.2.686 Lang LINDER [phone] Ca dicsean [address] 2022-03-05 2022-03-05 Outpatient Homer GARCIA [facility] [id number] Univers 16:00:00 16:00:00 FÉLIX ity [facility] 2022-02-18 2022-02-18 (TEL) STLMLC STLMLC [id number] Co mmon 00:00:00 00:00:00 [facility] 2022-02-07 2022-02-07 (TEL) STLMLC STLMLC [id number] Co mmon 00:00:00 00:00:00 [facility] 2022-02-07 2022-02-07 ([place]) Nurse STLMLC STLMLC [id number] Common 00:00:00 00:00:00 Visit [facility] 2022-01-29 2022-01-29 ([place]) Nurse STLMLC STLMLC [id number] Common 00:00:00 00:00:00 Visit [facility] 2022-01-29 2022-01-29 (TEL) STLMLC STLMLC [id number] Co mmon 00:00:00 00:00:00 [facility] 2021-12-28 2021-12-28 OFFICE STLMLC STLMLC [id number] Co mmon 00:00:00 00:00:00 VISIT [facility] LEVEL 2 [facility] 2021-10-30 2021-10-30 (TEL) STLMLC STLMLC [id number] Co mmon 00:00:00 00:00:00 [facility] 2021-10-28 2021-10-28 (TEL) STLMLC STLMLC [id number] Co mmon 00:00:00 00:00:00 [facility] 2021-10-04 2021-10-04 Imm/Inj Vaccine, Ang Db Cbc Fam [facility] 1. 2.840.114 [id number] Univers 16:00:00 16:28:24 Visit Fiona Ferreira [facility] [id number] [place] 4.2.7.2.686 Shine as MARIA E?BLE [phone] Ca vignesh [address] MEDICAL OFFICE BUILDING 2021-10-04 2021-10-04 Outpatient Homer FERREIRA [facility] [id number] Univers 16:00:00 16:00:00 FIONA flori [facility] 2021-09-28 2021-09-28 OFFICE STLMLC STLMLC [id number] Co mmon 00:00:00 00:00:00 VISIT EST Spir it PT LEVEL 3 - [facility] 2021-09-16 2021-09-[address] [facility] [id number] Univers 11:39:00 13:56:00 ELIF andersonmadhuri [facility] 2021-09-16 2021-09-16 Emergency [facility] 1.2.840.114 [id number] Univers 11:39:00 13:56:00 Elif SERRANO [facility].1.13.10 [phone] [address] 2021-09-11 2021-09-11 OFFICE STLMLC STLMLC [id number] Co mmon 00:00:00 00:00:00 VISIT Spirit ESTAB PT - CHI LEVEL 1 [facility] 2021-09-11 2021-09-11 (TEL) STLMLC STLMLC [id number] Co mmon 00:00:00 00:00:00 [facility] - [facility] 2021-08-14 2021-08-14 OFFICE STLMLC STLMLC [id number] Co mmon 00:00:00 00:00:00 VISIT Spirit ESTAB PT - CHI LEVEL 1 [facility] 2021-07-26 2021-07-26 OFFICE STLMLC STLMLC [id number] Co mmon 00:00:00 00:00:00 VISIT EST Spir it PT LEVEL 3 - [facility] 2021-06-29 2021-06-29 Outpatient STLMLC STLMLC [id number] Common 00:00:00 00:00:00 [facility] 2021-06-14 2021-06-14 Outpatient STLMLC STLMLC [id number] Common 00:00:00 00:00:00 [facility] 2021-04-20 2021-04-20 Outpatient STLMLC STLMLC [id number] Common 00:00:00 00:00:00 [facility] 2021-04-12 2021-04-12 Outpatient STLMLC STLMLC [id number] Common 00:00:00 00:00:00 [facility] 2021-04-04 2021-04-04 Outpatient STLMLC STLMLC [id number] Common 00:00:00 00:00:00 [facility] 2021-04-03 2021-04-03 Outpatient STLMLC STLMLC [id number] Common 00:00:00 00:00:00 [facility] 2021-02-20 2021-02-20 Outpatient STLMLC STLMLC [id number] Common 00:00:00 00:00:00 [facility] 2021-01-30 2021-01-30 Outpatient STLMLC STLMLC [id number] Common 00:00:00 00:00:00 [facility] 2020-12-19 2020-12-19 Outpatient STLMLC STLMLC [id number] Common 00:00:00 00:00:00 [facility] 2020-11-14 2020-11-14 Outpatient Homer NASSAR, [facility] [id number] Univers 14:30:00 14:30:00 [facility] 2020-10-17 2020-10-17 Outpatient R CESARIO [facility] [id number] Univers 14:20:00 14:20:00 [facility] 2020-10-17 2020-10-17 Outpatient [facility] [id number] Univers 14:20:00 14:20:00 [facility] 2020-07-18 2020-07-[address] [facility] 1.2.840.114 [id number] 00:00:00 00:00:00 [facility] 350.1.13.10 [place] 4.2.7.2.686 Professio [phone] nal [facility] Office Building One 2020-07-18 2020-07-18 Refill Pennington, [facility] 1.2.840.114 [id number] Univers 00:00:00 00:00:00 Irma [facility] 350.1.13.10 ity of [place] 4.2.7.2.686 Shine as Professio [phone] Ca dicwa nal [address] [place] Office [facility] One 2020-06-03 2020-06-03 Refill Pennington, [facility] 1.2.840.114 [id number] 00:00:00 00:00:00 Irma [facility] 350.1.13.10 [place] 4.2.7.2.686 Professio [phone] [place] [address] Office [address] 2020-06-03 2020-06-03 Refill Pennington, [facility] 1.2.840.114 [id number] Univers 00:00:00 00:00:00 Irma A Health 350.1.13.10 ity of [place] 4.2.7.2.686 Shine as Professio [phone] Ca dic[address] 2020-05-24 2020-05-24 [facility] [id number] Common 11:00:00 11:00:00 [facility] 2020-05-17 2020-05-17 [facility] [id number] Common 09:08:00 09:08:00 [facility] 2020-05-02 2020-05-02 [facility] [id number] Common 10:30:00 10:30:00 t [facility] 2020-03-03 2020-03-03 Refill Pennington, [facility] 1.2.840.114 [id number] 00:00:00 00:00:00 Irma A [place] 350.1.13.10 [place] 4.2.7.2.686 Professio [phone] [address] 2020-03-03 2020-03-03 Refill Aditi, [facility] 1.2.840.114 [id number] Univers 00:00:00 00:00:00 Irma A [place] 350.1.13.10 [place].7.2.[place] [phone] [address] 2020-03-01 2020-03-01 Telephone Aditi, [facility] 1.2.840.114 [id number] 00:00:00 00:00:00 Irma A [place] 350.1.13.10 [place] 4.2.7.2.686 Professio [phone] [address] 2020-03-01 2020-03-[address] [facility] 1.2.840.114 [id number] Univers 00:00:00 00:00:00 Irma A [place] 350.1.13.10 it[place] of [place]2.7.2.[place] [phone] [address] 2020-02-26 2020-02-26 Refill Pennington, [facility] 1.2.840.114 [id number] 00:00:00 00:00:00 Irma A [place] 350.1.13.10 [place] 4.2.7.2.686 Professio [phone] [address] 2020-02-26 2020-02-26 Refill Pennington, [facility] 1.2.840.114 [id number] Univers 00:00:00 00:00:00 Irma A [place] 350.1.13.10 [place]2.7.2.[place] [phone] [address] 2019-12-26 2019-12-26 Refill Pennington, [facility] 1.2.840.114 [id number] 00:00:00 00:00:00 Irma A [place] 350.1.13.10 [place] 4.2.7.2.686 Professio [phone] [address] 2019-12-26 2019-12-26 Refill Aditi [facility] 1.2.840.114 [id number] Univers 00:00:00 00:00:00 Irma A [place] 350.1.13.10 [place] of [place] 4.2.7.2.686 [place] [phone] Ca dical [address] 2019-12-08 2019-12-08 Telephone Dex Fair [facility] 1.2.840.114 [id number] Univers 00:00:00 00:00:00 W SPECIALTY 350.1.13.10 [place].2.[place] [phone] [address] 2019-12-08 2019-12-08 Telephone Dex Fair [facility] 1.2.840.114 [id number] 00:00:00 00:00:00 W SPECIALTY 350.1.13.10 [place] 4.2.7.2.686 [place] [phone] [facility] 2019-12-01 2019-12-[address] [facility] 1.2.840.114 [id number] 00:00:00 00:00:00 Irma A [place] 350.1.13.10 [place] 4.2.7.2.686 Professio [phone] [address] 2019-12-01 2019-12-01 Telephone [facility] 1.2.786.835 [id number] Univers 00:00:00 00:00:00 Rosario SPECIALTY 350.1.13.10 [place] [phone] [address] 2019-12-01 2019-12-01 Refill Aditi [facility] 1.2.840.114 [id number] Univers 00:00:00 00:00:00 Iram A [place] 350.1.13.10 ity of [place] 4.2.7.2.[place] [phone] Ca dical [address] 2019-12-01 2019-12-01 Telephone Jessica [facility] 1.2.532.795 [id number] 00:00:00 00:00:00 Rosario SPECIALTY 350.1.13.10 [place] 4.2.7.2.686 COLONY [phone] [facility] 2019-11-26 2019-11-26 Refill Aditi [facility] 1.2.840.114 [id number] Univers 00:00:00 00:00:00 Irma Serrano 350.1.13.10 ity of [place] 4.2.7.2.686 [place] [facility] [phone] [address] 2019-11-09 2019-11-09 Office Jessica [facility] 1.2.840.114 [id number] 12:48:32 13:48:32 Visit Rosairo SPECIALTY 350.1.13.10 [place] 4.2.7.2.686 COLONY [phone] [facility] 2019-11-09 2019-11-09 Office ConradokomalRosario [facility] 1.2.840. 114 [id number] [facility] 12:48:32 13:48:32 Visit Dex Fair SPECIALTY 350.1.13.10 ity of [place] 4.2.7.2.[place] [phone] [address] 2019-11-09 2019-11-09 Orders Doctor ALFRED 1.2.840.114 [id number] 00:00:00 00:00:00 Only Unassigned, [place] 350.1.13.10 [place] [facility] 4.2.7.2.686 [phone] [facility] 2019-11-09 2019-11-09 Orders Doctor AUBRIE 1.2.840.114 [id number] Univers 00:00:00 00:00:00 Only Unassigned, [place] 350.1.13.10 ity of [place] [facility] 4.2.7.2.686 Shine as [phone] [facility] [address] 2019-05-14 2019-05-14 Nurse Nurse, [place] [facility] 1.2.840.114 [id number] [facility] 15:28:41 15:43:41 Visit Irma Pennington 350.1. 13.10 ity of [place] 4.2.7.2.[place] [phone] Ca dical nal 044 [facility] 2019-05-14 2019-05-14 Letter Pennington [facility] 1.2.840.114 [id number] Univers 00:00:00 00:00:00 (Out) Irma Tomton 350.1.13.10 ity of [place] 4.2.7.2.[place] [phone] Ca dical nal 231 [facility] 2019-05-12 2019-05-12 Nurse Nurse, [facility] 1.2.840.114 [id number] Univers 13:01:21 15:09:23 Visit Irma Pennington 350.1. 13.10 ity of [place] 4.2.7.2.686 [place] [phone] Ca dical nal 044 [facility] 2019-03-26 2019-03-26 Out[facility] [id number] Common 08:00:00 08:00:00 t [facility] Sp[facility] 2019-01-12 2019-01-12 Out[facility] [id number] Common 11:00:00 11:00:00 t [facility] Bone [facility] Sp[facility] t [facility] Results Test Description Test Time Test Comments Results Result Comments Source HEMOGLOBIN A1C 2017-05-16 21:48:00 Test Item Value Reference Range Interpretation Comme nts HEMOGLOBIN A1C (BEAKER) (test code = 368) 6.2 % 4.3-6.1 H [id number] 07:10:00 Test Item Value Reference Range Interpretation Comments MAGNESIUM (BEAKER) (test code = 1.9 mg/dL 1.6-2.6 627) BASIC METABOLIC [id number] 07:10:00 Test Item Value Reference Range Interpretation [...] WBC 0-0 (BEAKER) (test code = 413) [id number] 05:45:00 Test Item Value Reference Range Interpretation Comments MAGNESIUM (BEAKER) 2.3 mg/dL 1.6-2.6 Specimen moderately (test code = 627) hemolyzed COMPREHENSIVE METABOLIC [id number] 05:45:00 Test Item Value Reference Range Interpretation [...] S NOT APPLICABLE FOR DIALYSIS PATIEN TS. [id number] 11:50:00 Test Item Value Reference Range Interpretation Comments RPR SCREEN (BEAKER) (test code = Nonreactive Nonreactive 420) BASIC METABOLIC [id number] 06:28:00 Test Item Value Reference Range Interpretation [...] NOT APPLICABLE FOR DIALYSIS PATIEN TS. FastingLIPID [id number] 06:28:00 Test Item Value Reference Range Interpretation [...] Very High >=190 Fasting VITAMIN B12 AND [id number] 04:10:00 Test Item Value Reference Range Interpretation Comments VITAMIN B12 (BEAKER) (test code = 514 pg/mL 213-816 774) FOLATE (BEAKER) (test code = 362) > ng/mL >=7.0 Effective 08/31/2014: Folate Reference Range ChangeNew: >=7.0 Previous: >=5.4TSH/FREE T4 IF [id number] 02:52:00 Test Item Value Reference Range Interpretation Comments THYROID STIMULATING HORMONE 2.55 uIU/mL 0.35-4.94 (BEAKER) (test code = 772) SEDIMENTATION [id number] 01:10:00 Test Item Value Reference Range Interpretation Comments SEDIMENTATION RATE, ERYTHROCYTE 6 mm/HR 0-40 (BEAKER) (test code = 766) [id number] 00:35:00 Test Item Value Reference Range Interpretation Comments HOMOCYSTEINE (BEAKER) (test code = 8.5 umol/L 5.1-15.4 642) URINALYSIS W/ [id number] 00:30:00 Test Item Value Reference Range Interpretation [...] 516) SOURCE(BEAKER) (test code = Urine, Voided 7431) TROPONIN [id number] 00:23:00 Test Item Value Reference Range Interpretation [...] acute neurological disease, and persistent tachyarrhythmia.HEPATIC FUNCTION [id number] 00:17:00 Test Item Value Reference Range Interpretation [...] = 31 U/L 6-55 347) BASIC METABOLIC [id number] 00:17:00 Test Item Value Reference Range Interpretation [...] NOT APPLICABLE FOR DIALYSIS PATIEN TS. C-REACTIVE [id number] 00:17:00 Test Item Value Reference Range Interpretation Comments C-REACTIVE PROTEIN (BEAKER) (test 0.55 mg/dL 0.00-0.50 H code = 676) PROTHROMBIN [id number] 00:07:00 Test Item Value Reference Range Interpretation [...] mechanical heart valves.CBC W/PLT COUNT & AUTO [id number] 00:01:00 Test Item Value Reference Range Interpretation [...] % 0-1 PERCENT (BEAKER) (test code = 5730)
[2022-09-18 14:13] LABS: Absolute Lymphocytes (CBC) 2.3 K/uL (0.7-4.9); Hematocrit 52.8 % (36.0-45.0); MCV 98.2 fL (80-100); MPV 9.3 fL (7.6-11.3); RBC Red Blood Cell Count 5.37 M/uL (3.86-4.86)
[2022-09-18] MEDS: NA CHLORIDE 0.9% 1,000 ML IV SCH (14:49)
[2022-09-18] MEDS: CEFTRIAXONE 1,000 MG in NA CHLORIDE 0.9% 50 ML IVPB SCH ×2 (14:50→20:48)
[2022-09-18 14:53] LABS: Albumin 3.8 g/dL (3.4-5.0); Magnesium 2.5 mg/dL (1.8-2.4); Potassium 3.7 mmol/L (3.5-5.1); Protein, Total 7.7 g/dL (6.4-8.2)
[2022-09-18 18:10] LABS: Specific Gravity 1.009 (1.005-1.030); Urine Bacteria <20 /HPF (<20); Urine Bilirubin NEGATIVE (Negative); Urine Blood 1+ (Negative); Urine Clarity Turbid (Clear); Urine Color Light-Yellow (Yellow); Urine Glucose NEGATIVE (Negative); Urine Mucus Slight /HPF (None Seen); Urine Protein NEGATIVE (Negative); Urine Urobilinogen Normal (Normal); Urine pH 6.5 (5.0-7.0)
[2022-09-18] MEDS ORDERED: KCL 20 MEQ/100 mL IVPB 20 MEQ/100 ML BAG IV SCH (20:00)
[2022-09-18] MEDS ORDERED: POTASSIUM CL SA 10 MEQ TAB PO ONE (21:00)
[2022-09-18] MEDS ORDERED: METOPROLOL TAR 25 MG TAB PO ONE (22:19)
[2022-09-19] MEDS: LEVOTHYROXINE SOD 0.025 MG TAB PO SCH (05:42)
[2022-09-19] MEDS: NA CHLORIDE 0.9% 1,000 ML IV SCH (05:42)
[2022-09-19] MEDS ORDERED: GLUCAGON 1 MG/VIAL IM PRN (06:46)
[2022-09-19] MEDS ORDERED: D50W 25 GM/50 ML SYRINGE IV PRN (06:46)
[2022-09-19] MEDS ORDERED: DEXTROSE 10%-WATER 125 ML IV PRN (07:13)
[2022-09-19] MEDS: INSULIN -REGULAR HUMAN 50 UNIT/0.5 ML ML SQ SCH ×4 (07:30→20:43)
--- NOTE | 2022-09-19 07:35 | HP ---
Date of Admission: 09/18/2022 Chief Complaint: Altered mental status. History Of Present Illness: This is an 81-year-old pleasant female patient with history of recurrent urinary tract infection, recently came to office last week with signs and symptoms of urinary tract infection. The patient was started on Cipro and urine culture result came back yesterday growing E coli which was resistant to Cipro, but sensitive to Augmentin, so antibiotic was changed to Augmentin as of yesterday, and the patient took 2 doses of Augmentin and today she was brought into office by family member with altered mental status. The patient was sitting in a wheelchair sleeping throughout the time she was at the office, did not answer any question, but she did wake up when I talked to her, opened her eyes, and was able to recognize me and then went back to sleep. No nausea, vomiting, diarrhea. No constipation. Her appetite has been poor in last few days with reduced oral intake of solid food and liquids. After she was evaluated at office she was admitted to the hospital for further evaluation and management of this problem. Advance directives as per the patient's decision and out of hospital DNR paperwork that the patient has filled out. She does not want any heroic measures done like CPR, defibrillation, or ventilator support in the event of cardiopulmonary arrest and as per my discussion with the patient's daughter at office, DNR order should be followed in the hospital as well. Allergies: NO KNOWN ALLERGIES. Medications: List reviewed. Review of Systems: REINSURANCE ACCOUNTANT: As mentioned above. Genitourinary: As mentioned above. All other systems reviewed and negative. Past Medical History: Significant for allergic rhinitis, hypertension, type 2 diabetes mellitus, recurrent urinary tract infection, mixed hyperlipidemia, chronic diastolic heart failure, paroxysmal atrial fibrillation, diverticulosis, colon cancer involving splenic flexure, chronic kidney disease, leg edema, varicose veins of lower extremity, osteoarthritis at multiple sites, anxiety, depression. Past Surgical History: Significant for partial destruction of colon due to colon cancer on July 02, 2012, appendectomy, hysterectomy, bladder suspension, back surgery. Family History: Father had stroke. Mother had colon cancer. Social History: Negative for smoking and negative for alcohol use. Physical Examination: Vital Signs: Height 5 feet 5 inches, weight 158 pounds, temperature 96, pulse 78, respiratory rate 16, blood pressure 132/76, oxygen saturation 94%. General: The patient is sleeping. Appears very weak; wakes up, and after speaking 2 to 3 words, she goes back to sleep. Not using any accessory muscles of respiration. HEENT: Head atraumatic, normocephalic. Conjunctivae nonerythematous. Sclerae white. Mouth, no thrush or edema noted. Ears/Nose, no mass, lesion, discharge noted. Neck: Supple. No JVD, lymph nodes, bruit, thyromegaly noted. Lungs: Bilateral good equal air entry. Clear to auscultation. No rhonchi. No rales. Heart: Normal heart sounds, no murmur or gallop. Abdomen: Soft, bowel sounds normal. No guarding, rigidity, tenderness, mass, hepatosplenomegaly, distention, or bruit noted. Extremities: Trace leg edema in both lower extremities. Skin: No rash, ulcer, cellulitis. Lymphatics: No lymph node enlargement in neck, supraclavicular, infraclavicular region. Neuro: No focal neurological deficit. Chest: Unremarkable. External Genitalia: Deferred. Rectal: Deferred. Laboratory Data: White count 9.7, hemoglobin 17.4, platelets 152. Sodium 135, potassium 3.7, chloride 97, bicarb 32, BUN 44, creatinine 1.70, glucose 172. Liver function tests unremarkable. Lactic acid 2.1 on the initial blood work. Repeat lactic acid 1.8. Procalcitonin less than 0.05. COVID-19 test negative. Urinalysis, leukocyte esterase positive, wbc's more than 50. Impression: 1. Toxic encephalopathy. 2. Urinary tract infection. 3. Chronic kidney disease, stage 3B. 4. Hypertension. 5. Hyperlipidemia, mixed. 6. Chronic diastolic heart failure. 7. Paroxysmal atrial fibrillation. 8. Type 2 diabetes mellitus. 9. Allergic rhinitis. 10. Diverticulosis. 11. Colon cancer, splenic flexure. 12. Anxiety. 13. Depression. 14. Osteoarthritis, multiple sites. 15. Chronic anticoagulation therapy. Plan: We will go ahead and admit the patient to hospital for further evaluation and management of this problem. The patient is appropriate for inpatient and is expected to spend 2 midnights in hospital. According to outpatient urine culture, we will start her on IV ceftriaxone for urinary tract infection and follow up on repeat urine culture that was ordered. Chances are likely that this repeat urine culture may not grow any bacteria because patient has been on outpatient antibiotic therapy, but if it does grow some bacteria, it will help us. Otherwise, we will have to make decision on basis of urine culture results from last week, which was collected. We will continue her home medications including her anticoagulation therapy, Xarelto for atrial fibrillation. Metoprolol will be continued for her blood pressure and rate control. For her congestive heart failure, we will go ahead and continue diuretic therapy per order. We will also continue her amiodarone for atrial fibrillation that she takes. Diabetes will be managed with sliding scale insulin per order. The patient is on oral hypoglycemic medication on outpatient basis and instead of that, at least at this point, we will go ahead and monitor fingerstick blood sugar with mild sliding scale. Continue her duloxetine which is being given for neuropathy as well as anxiety and depression problem. Continue her statin therapy for hyperlipidemia. Monitor electrolytes and renal function. She takes metolazone at home and furosemide and we will not give any metolazone at this point and consider to restart it at appropriate time. HITESH/MODL Voice ID: [id number] RIANA
[2022-09-19] MEDS: CEFTRIAXONE 1,000 MG in NA CHLORIDE 0.9% 50 ML IVPB SCH ×2 (08:14→20:42)
[2022-09-19] MEDS: allopurinoL 300 MG TAB PO SCH (08:16)
[2022-09-19] MEDS: ACETAMINOPHEN 500 MG TAB PO PRN (08:16)
[2022-09-19] MEDS: DULOXETINE 20 MG CAP PO SCH (08:17)
[2022-09-19] MEDS: GABAPENTIN 300 MG CAP PO SCH ×2 (08:17→20:43)
[2022-09-19] MEDS: METOPROLOL TAR 25 MG TAB PO SCH ×2 (08:17→20:45)
[2022-09-19] MEDS: FUROSEMIDE 40 MG TABLET PO SCH (08:17)
[2022-09-19] MEDS: VALSARTAN 160 MG TAB PO SCH (08:17)
[2022-09-19] MEDS: AMIODARONE HCL 200 MG TAB PO SCH (08:17)
[2022-09-19] MEDS: FAMOTIDINE 20 MG TAB PO SCH ×2 (08:17→20:43)
[2022-09-19 09:56] LABS: Potassium 3.3 mmol/L (3.5-5.1)
[2022-09-19] MEDS ORDERED: POTASSIUM CL SA 10 MEQ TAB PO ONE (10:30)
[2022-09-19] MEDS ORDERED: NA CHLORIDE 0.9% 250 ML IV ONE (11:38)
[2022-09-19] MEDS: RIVAROXABAN 15 MG TABLET PO SCH (17:32)
[2022-09-19] MEDS: ATORVASTATIN 40 MG TAB PO SCH (20:43)
[2022-09-20] MEDS: LEVOTHYROXINE SOD 0.025 MG TAB PO SCH (05:51)
--- NOTE | 2022-09-20 07:03 | PN ---
Date of Progress Note: 09/19/2022 Subjective: The patient was seen this morning for followup. No new complaints or problems reported by the patient. She was awake and more alert compared to yesterday, not completely back to normal bu t definitely lot better than yesterday. Objective: Vital Signs: Reviewed. HEENT: Unremarkable. Lungs: Clear to auscultation. Heart: Sounds normal. Abdomen: Soft. Bowel sounds normal. No guarding, rigidity, tenderness, distention. Extremities: No leg edema. Impression: 1.Toxic encephalopathy. 2.Urinary tract infection. 3.Paroxysmal atrial fibrillation. 4.Hypertension. 5.Type 2 diabetes mellitus. Plan: We will go ahead and have Physical Therapy work with the patient. Continue current antibiotic s, ceftriaxone, and we will wait on the urine culture. Tomorrow, I will evaluate her and depending o n the urine culture result and her condition, we will decide about possible discharge tomorrow. Deta ils were discussed with the patient. HITESH/MODL Voice ID: [id number] Report ID: [id number]
[2022-09-20] MEDS: INSULIN -REGULAR HUMAN 50 UNIT/0.5 ML ML SQ SCH ×4 (07:30→21:20)
[2022-09-20] MEDS: allopurinoL 300 MG TAB PO SCH (07:42)
[2022-09-20] MEDS: DULOXETINE 20 MG CAP PO SCH (07:42)
[2022-09-20] MEDS: AMIODARONE HCL 200 MG TAB PO SCH (07:43)
[2022-09-20] MEDS: FUROSEMIDE 40 MG TABLET PO SCH (07:43)
[2022-09-20] MEDS: FAMOTIDINE 20 MG TAB PO SCH ×2 (07:43→21:21)
[2022-09-20] MEDS: GABAPENTIN 300 MG CAP PO SCH ×2 (07:44→21:21)
[2022-09-20] MEDS: METOPROLOL TAR 25 MG TAB PO SCH ×2 (07:47→21:21)
[2022-09-20] MEDS: VALSARTAN 160 MG TAB PO SCH (07:48)
[2022-09-20] MEDS: ACETAMINOPHEN 500 MG TAB PO PRN ×2 (07:49→16:46)
[2022-09-20] MEDS ORDERED: POTASSIUM 25 MEQ EFFERV TAB PO ONE (08:00)
[2022-09-20] MEDS: CEFTRIAXONE 1,000 MG in NA CHLORIDE 0.9% 50 ML IVPB SCH ×2 (09:21→21:22)
[2022-09-20] MEDS ORDERED: POTASSIUM CL SA 10 MEQ TAB PO ONE (16:00)
[2022-09-20] MEDS: RIVAROXABAN 15 MG TABLET PO SCH (16:43)
[2022-09-20] MEDS: ATORVASTATIN 40 MG TAB PO SCH (21:21)
--- NOTE | 2022-09-21 03:36 | PN ---
Date of Progress Note: 09/20/2022 Subjective: Patient was seen this morning for followup. She was lying in bed, not in any distress. Overall feels better compared to before. Denies any nausea, vomiting, diarrhea. Objective: Vital Signs: Reviewed. HEENT: Unremarkable. Lungs: Clear to auscultation. Heart: Sounds normal. Abdomen: Soft, bowel sounds normal. No guarding, rigidity, tenderness, distention. Extremities: No leg edema. Laboratory Data: Sodium 138, potassium 3, chloride 102, bicarb 29, BUN 42, creatinine 1.28, glucose 157. Urine culture pending. Blood culture negative. Impression: 1.Toxic encephalopathy, improving. 2.Urinary tract infection. 3.Paroxysmal atrial fibrillation. 4.Hypertension. 5.Type 2 diabetes mellitus. Plan: Physical Therapy to continue to work with the patient. We will continue current antibiotic, w hich is ceftriaxone. Follow up on urine culture. Hopefully, result will be ready by tomorrow and th en we can plan for discharge. Continue current antihypertensive medications and current diabetes man agement. I will see her tomorrow for followup. HITESH/MODL Voice ID: [id number] Report ID: [id number]
[2022-09-21 05:02] LABS: Potassium 3.5 mmol/L (3.5-5.1)
[2022-09-21] MEDS: LEVOTHYROXINE SOD 0.025 MG TAB PO SCH (05:45)
[2022-09-21] MEDS: ACETAMINOPHEN 500 MG TAB PO PRN (05:47)
[2022-09-21] MEDS: INSULIN -REGULAR HUMAN 50 UNIT/0.5 ML ML SQ SCH ×4 (07:30→21:29)
[2022-09-21] MEDS ORDERED: POTASSIUM 25 MEQ EFFERV TAB PO ONE (09:00)
[2022-09-21] MEDS: METOPROLOL TAR 25 MG TAB PO SCH ×2 (09:15→21:28)
[2022-09-21] MEDS: CEFTRIAXONE 1,000 MG in NA CHLORIDE 0.9% 50 ML IVPB SCH (09:15)
[2022-09-21] MEDS: allopurinoL 300 MG TAB PO SCH (09:16)
[2022-09-21] MEDS: GABAPENTIN 300 MG CAP PO SCH ×2 (09:16→21:28)
[2022-09-21] MEDS: VALSARTAN 160 MG TAB PO SCH (09:16)
[2022-09-21] MEDS: FUROSEMIDE 40 MG TABLET PO SCH (09:17)
[2022-09-21] MEDS: FAMOTIDINE 20 MG TAB PO SCH ×2 (09:17→21:28)
[2022-09-21] MEDS: DULOXETINE 20 MG CAP PO SCH (09:17)
[2022-09-21] MEDS: AMIODARONE HCL 200 MG TAB PO SCH (09:17)
[2022-09-21] MEDS: PIPER TAZO 2.25 GM in NA CHLORIDE 0.9% 50 ML IV SCH ×2 (12:50→17:18)
[2022-09-21] MEDS: RIVAROXABAN 15 MG TABLET PO SCH (17:18)
[2022-09-21] MEDS ORDERED: MAGNESIUM HYDROXIDE 8% 30 ML PO PRN (17:21)
[2022-09-21] MEDS ORDERED: BISACODYL 10 MG RECTAL SUPP PR ONE ×2 (18:00→21:10)
[2022-09-21] MEDS: ATORVASTATIN 40 MG TAB PO SCH (21:28)
[2022-09-22] MEDS: PIPER TAZO 2.25 GM in NA CHLORIDE 0.9% 50 ML IV SCH ×3 (00:38→17:02)
[2022-09-22] MEDS ORDERED: FLEET ENEMA ADULT PR ONE (04:00)
[2022-09-22 05:07] LABS: Potassium 3.7 mmol/L (3.5-5.1)
[2022-09-22] MEDS ORDERED: POTASSIUM 25 MEQ EFFERV TAB PO ONE (06:08)
[2022-09-22] MEDS: LEVOTHYROXINE SOD 0.025 MG TAB PO SCH (06:21)
[2022-09-22] MEDS: INSULIN -REGULAR HUMAN 50 UNIT/0.5 ML ML SQ SCH ×4 (07:30→21:00)
[2022-09-22] MEDS: AMIODARONE HCL 200 MG TAB PO SCH (09:55)
[2022-09-22] MEDS: allopurinoL 300 MG TAB PO SCH (09:55)
[2022-09-22] MEDS: VALSARTAN 160 MG TAB PO SCH (09:55)
[2022-09-22] MEDS: FAMOTIDINE 20 MG TAB PO SCH ×2 (09:55→21:18)
[2022-09-22] MEDS: FUROSEMIDE 40 MG TABLET PO SCH (09:55)
[2022-09-22] MEDS: GABAPENTIN 300 MG CAP PO SCH ×2 (09:55→21:18)
[2022-09-22] MEDS: DULOXETINE 20 MG CAP PO SCH (09:56)
[2022-09-22] MEDS: METOPROLOL TAR 25 MG TAB PO SCH ×2 (09:56→21:18)
--- NOTE | 2022-09-22 12:24 | PN ---
Date of Progress Note: 09/21/2022 Subjective: The patient was seen this morning for followup. She was lying in bed, in acute distress . She is complaining of pain, redness and swelling of her left wrist and left hand and fingers area. No fall. No injury. Objective: Vital Signs: Reviewed. HEENT: Unremarkable. Lungs: Clear to auscultation. Heart: Sounds normal. Abdomen: Soft. Bowel sounds normal. No guarding, rigidity, tenderness, distention. Extremities: No leg edema. Left hand and left wrist area have mild swelling, little more swelling o n the left dorsum hand with pink, warm color skin, and extremely painful with any attempt to move and flex her fingers. No open wound. No evidence of any abscess. Laboratory Data: Urine culture showing E coli. Impression: 1.Urinary tract infection. 2.Toxic encephalopathy. 3.Cellulitis, left upper extremity. 4.Hypertension. 5.Type 2 diabetes mellitus. Plan: We will go ahead and discontinue ceftriaxone, start the patient on Zosyn. We will continue cu rrent antihypertensive medication, continue current diabetes management and the patient was advised t o keep her left upper extremity elevated all the time and nurse was advised to move her IV from left fo rearm to right forearm. HITESH/MODL Voice ID: [id number] Report ID: [id number]
--- NOTE | 2022-09-22 13:23 | PN ---
Date of Progress Note: 09/22/2022 Subjective: The patient was seen this morning for followup. No new complaints or problems reported by the patient. Lying in bed, not in distress. Objective: Vital Signs: Reviewed. HEENT: Unremarkable. Lungs: Clear to auscultation. Heart: Sounds normal. Abdomen: Soft. Bowel sounds normal. No guarding, rigidity, tenderness, distention. Extremities: No leg edema. Left upper extremity swelling and redness, both appears to be slightly l ess today compared to yesterday. Impression: 1.Toxic encephalopathy, improved. 2.Urinary tract infection. 3.Cellulitis, left upper extremity. 4.Hypertension. 5.Type 2 diabetes mellitus. Plan: We will go ahead and continue current antibiotic, which is Zosyn. We will continue current an tihypertensive medication. Continue current diabetes management and I will see her tomorrow for foll owup. She was advised to keep her left upper extremity elevated and also I did ask her to start movi ng her left hand as much as she can to help improve the swelling also while keeping it elevated. I w ill see her tomorrow for followup. Possible discharge to go home tomorrow depending on her condition . HITESH/MODL Voice ID: [id number] Report ID: [id number]
[2022-09-22] MEDS: RIVAROXABAN 15 MG TABLET PO SCH (17:02)
[2022-09-22] MEDS: ATORVASTATIN 40 MG TAB PO SCH (21:18)
[2022-09-23] MEDS: PIPER TAZO 2.25 GM in NA CHLORIDE 0.9% 50 ML IV SCH ×3 (02:31→16:40)
[2022-09-23] MEDS: LEVOTHYROXINE SOD 0.025 MG TAB PO SCH (05:36)
[2022-09-23 06:44] LABS: Magnesium 2.3 mg/dL (1.6-2.4); Potassium 3.4 mmol/L (3.5-5.1)
[2022-09-23] MEDS: INSULIN -REGULAR HUMAN 50 UNIT/0.5 ML ML SQ SCH ×4 (07:30→23:04)
[2022-09-23] MEDS ORDERED: POTASSIUM CL SA 10 MEQ TAB PO ONE (09:00)
[2022-09-23] MEDS: GABAPENTIN 300 MG CAP PO SCH ×2 (09:47→23:01)
[2022-09-23] MEDS: AMIODARONE HCL 200 MG TAB PO SCH (09:48)
[2022-09-23] MEDS: VALSARTAN 160 MG TAB PO SCH (09:48)
[2022-09-23] MEDS: DULOXETINE 20 MG CAP PO SCH (09:48)
[2022-09-23] MEDS: FUROSEMIDE 40 MG TABLET PO SCH (09:48)
[2022-09-23] MEDS: allopurinoL 300 MG TAB PO SCH (09:49)
[2022-09-23] MEDS: METOPROLOL TAR 25 MG TAB PO SCH ×2 (09:49→21:00)
[2022-09-23] MEDS: FAMOTIDINE 20 MG TAB PO SCH ×2 (09:49→23:01)
[2022-09-23 11:05] LABS: Absolute Lymphocytes (CBC) 0.8 K/uL (0.7-4.9); Hematocrit 42.6 % (36.0-45.0); Lymphocytes % 6.6 % (15.3-44.8); MCV 98.2 fL (80-100); MPV 9.8 fL (7.6-11.3); RBC Red Blood Cell Count 4.34 M/uL (3.86-4.86)
[2022-09-23] MEDS: VANCOMYCIN 1.25 GM in NA CHLORIDE 0.9% 250 ML IVPB SCH (11:26)
--- NOTE | 2022-09-23 15:04 | PN ---
Date of Progress Note: 09/23/2022 Subjective: The patient was seen this morning for followup. No new complaints or problems reported by the patient except pain, swelling and redness of the left hand and left wrist area. Objective: Vital Signs: Reviewed. HEENT: Unremarkable. Lungs: Clear to auscultation. Heart: Sounds normal. Abdomen: Soft. Bowel sounds normal. No guarding, rigidity, tenderness, distention. Extremities: No leg edema. Left hand and left wrist area have redness and swelling, which has remai gali unchanged from yesterday and no improvement since yesterday, but no significant worsening either, but has significant pain with any attempt to move her hand or wrist. Laboratory Data: Sodium 132, potassium 3.4, chloride 95, bicarb 31, BUN 24, creatinine 1.1, glucose 182. Impression: 1.Cellulitis, left hand. 2.Urinary tract infection. 3.Toxic encephalopathy. 4.Hypertension. 5.Type 2 diabetes mellitus. Plan: We will have Physical Therapy continue to work with the patient. Continue current antibiotic, Zosyn and we will add vancomycin. Replace electrolyte per protocol and I will see her tomorrow for followup. We will do CBC today with her next blood draw. HITESH/MODL Voice ID: [id number] Report ID: [id number]
[2022-09-23] MEDS: RIVAROXABAN 15 MG TABLET PO SCH (16:40)
[2022-09-23 21:24] VITALS: BMI 25.1
[2022-09-23] MEDS: ATORVASTATIN 40 MG TAB PO SCH (23:04)
[2022-09-24] MEDS: PIPER TAZO 2.25 GM in NA CHLORIDE 0.9% 50 ML IV SCH ×2 (00:56→09:57)
[2022-09-24] MEDS: LEVOTHYROXINE SOD 0.025 MG TAB PO SCH (05:34)
[2022-09-24] MEDS: ACETAMINOPHEN 500 MG TAB PO PRN ×2 (06:00→22:53)
[2022-09-24 06:15] LABS: Magnesium 2.3 mg/dL (1.6-2.4); Potassium 3.7 mmol/L (3.5-5.1)
[2022-09-24] MEDS: INSULIN -REGULAR HUMAN 50 UNIT/0.5 ML ML SQ SCH ×4 (07:30→20:35)
[2022-09-24] MEDS ORDERED: POTASSIUM CL SA 10 MEQ TAB PO ONE (09:00)
[2022-09-24] MEDS: allopurinoL 300 MG TAB PO SCH (09:58)
[2022-09-24] MEDS: GABAPENTIN 300 MG CAP PO SCH ×2 (09:58→20:36)
[2022-09-24] MEDS: VALSARTAN 160 MG TAB PO SCH (09:58)
[2022-09-24] MEDS: FUROSEMIDE 40 MG TABLET PO SCH (09:58)
[2022-09-24] MEDS: FAMOTIDINE 20 MG TAB PO SCH ×2 (09:58→20:37)
[2022-09-24] MEDS: METOPROLOL TAR 25 MG TAB PO SCH ×2 (09:59→20:36)
[2022-09-24] MEDS: AMIODARONE HCL 200 MG TAB PO SCH (09:59)
[2022-09-24] MEDS: DULOXETINE 20 MG CAP PO SCH (09:59)
[2022-09-24] MEDS: RIVAROXABAN 15 MG TABLET PO SCH (17:51)
[2022-09-24] MEDS: PIPER TAZO 3.375 GM in NA CHLORIDE 0.9% 100 ML IV SCH (17:51)
[2022-09-24] MEDS: ATORVASTATIN 40 MG TAB PO SCH (20:36)
--- NOTE | 2022-09-24 21:13 | PN ---
Date of Progress Note: 09/24/2022 Subjective: The patient was seen this morning for followup. She was lying in bed, not in distress, sleeping, easily arousable. Denies any new complaints. Objective: Vital Signs: Reviewed. HEENT: Unremarkable. Lungs: Clear to auscultation. Heart: Sounds normal. Abdomen: Soft. Bowel sounds normal. No guarding, rigidity, tenderness, or distention. Extremities: No leg edema and left upper extremity shows improvement in redness and swelling of left hand and left wrist area. Laboratory Data: Sodium 133, potassium 3.7, chloride 98, bicarb 29, BUN 25, creatinine 1.05, and glu cose 155. Impression: 1.Cellulitis, left upper extremity. 2.Urinary tract infection. 3.Hypertension. 4.Type 2 diabetes mellitus. Plan: We will go ahead and continue current medication. Continue current antibiotic, which is vanco mycin and Zosyn. The patient is keeping her left hand elevated. I will see her tomorrow morning for followup, possible discharge to go home in next 1 or 2 days. HITESH/MODL Voice ID: [id number] Report ID: [id number]
[2022-09-24] MEDS: VANCOMYCIN 1.25 GM in NA CHLORIDE 0.9% 250 ML IVPB SCH (22:45)
[2022-09-25] MEDS: PIPER TAZO 3.375 GM in NA CHLORIDE 0.9% 100 ML IV SCH ×3 (01:13→17:34)
[2022-09-25 04:03] LABS: Hematocrit 37.4 % (36.0-45.0); MCV 98.4 fL (80-100); MPV 9.2 fL (7.6-11.3)
[2022-09-25 04:15] LABS: Magnesium 2.2 mg/dL (1.6-2.4); Potassium 3.5 mmol/L (3.5-5.1)
[2022-09-25] MEDS: LEVOTHYROXINE SOD 0.025 MG TAB PO SCH (05:35)
[2022-09-25] MEDS ORDERED: POTASSIUM CL SA 10 MEQ TAB PO ONE (06:00)
[2022-09-25] MEDS: INSULIN -REGULAR HUMAN 50 UNIT/0.5 ML ML SQ SCH ×4 (07:30→21:52)
[2022-09-25] MEDS: FAMOTIDINE 20 MG TAB PO SCH ×2 (08:53→21:44)
[2022-09-25] MEDS: allopurinoL 300 MG TAB PO SCH (08:53)
[2022-09-25] MEDS: DULOXETINE 20 MG CAP PO SCH (08:53)
[2022-09-25] MEDS: GABAPENTIN 300 MG CAP PO SCH ×2 (08:53→21:44)
[2022-09-25] MEDS: AMIODARONE HCL 200 MG TAB PO SCH (08:54)
[2022-09-25] MEDS: FUROSEMIDE 40 MG TABLET PO SCH (08:57)
[2022-09-25] MEDS: VALSARTAN 160 MG TAB PO SCH (08:57)
[2022-09-25] MEDS: METOPROLOL TAR 25 MG TAB PO SCH ×2 (08:57→21:00)
[2022-09-25] MEDS: RIVAROXABAN 15 MG TABLET PO SCH (17:34)
[2022-09-25] MEDS: VANCOMYCIN 1.25 GM in NA CHLORIDE 0.9% 250 ML IVPB SCH (18:00)
[2022-09-25] MEDS ORDERED: VANCOMYCIN 1.25 GM in NA CHLORIDE 0.9% 250 ML IVPB SCH (21:00)
[2022-09-25] MEDS: ATORVASTATIN 40 MG TAB PO SCH (21:44)
[2022-09-25] MEDS: ACETAMINOPHEN 500 MG TAB PO PRN (21:52)
--- NOTE | 2022-09-25 22:12 | PN ---
Date of Progress Note: 09/25/2022 Subjective: The patient was seen this morning for followup. She was lying in bed, not in distress. Objective: Vital Signs: Reviewed. HEENT: Unremarkable. Lungs: Clear to auscultation Heart: Sounds normal. Abdomen: Soft. Bowel sounds normal. No guarding, rigidity, tenderness, distention. Extremities: No leg edema. Left hand swelling, redness is better compared to before. Impression: 1.Urinary tract infection. 2.Cellulitis, left hand. 3.Generalized weakness. 4.Debility. 5.Hypertension. 6.Type 2 diabetes mellitus. Plan: The patient lives at [facility], and she does not ambulate, but she i s able to transfer from bed to wheelchair at the facility and moves around in the wheelchair. Since she has been in the hospital. She is not able to get in and out of bed because of her significant ge neralized weakness and debility, and today, when I raised this concern about, this might create a pro blem for her to go back to [facility] she insisted on going back to [facility] and I informed h er that we will have to call [facility] to check on it to see if they will be able to accept her or not and nurse did call [facility] to check on this and she was told that the [facility] will need to go to [facility] and she will not be able to come back to [facility] until her condit ion improves, so nurse was advised to contact social Service to make arrangements for patient to go t o [facility] facility. As soon as arrangements gets completed, we will plan to discharge her. Meanwhile, we will continue current antibiotic which is Zosyn and vancomycin. The [facility] will [facility] to [facility] with oral antibiotic and she will not need IV antibiotics at the nursing facility. HITESH/MODL Voice ID: [id number] Report ID: [id number]
[2022-09-26] MEDS: PIPER TAZO 3.375 GM in NA CHLORIDE 0.9% 100 ML IV SCH ×3 (00:53→17:31)
[2022-09-26 04:29] LABS: Potassium 3.5 mmol/L (3.5-5.1)
[2022-09-26] MEDS: LEVOTHYROXINE SOD 0.025 MG TAB PO SCH (05:42)
[2022-09-26] MEDS ORDERED: POTASSIUM CL SA 10 MEQ TAB PO ONE (06:00)
[2022-09-26] MEDS: INSULIN -REGULAR HUMAN 50 UNIT/0.5 ML ML SQ SCH ×4 (07:30→22:16)
[2022-09-26] MEDS: DULOXETINE 20 MG CAP PO SCH (09:04)
[2022-09-26] MEDS: FUROSEMIDE 40 MG TABLET PO SCH (09:04)
[2022-09-26] MEDS: VALSARTAN 160 MG TAB PO SCH (09:04)
[2022-09-26] MEDS: FAMOTIDINE 20 MG TAB PO SCH ×2 (09:04→21:25)
[2022-09-26] MEDS: allopurinoL 300 MG TAB PO SCH (09:04)
[2022-09-26] MEDS: METOPROLOL TAR 25 MG TAB PO SCH ×2 (09:04→21:25)
[2022-09-26] MEDS: GABAPENTIN 300 MG CAP PO SCH ×2 (09:14→21:25)
[2022-09-26] MEDS: AMIODARONE HCL 200 MG TAB PO SCH (09:14)
[2022-09-26] MEDS: RIVAROXABAN 15 MG TABLET PO SCH (17:31)
[2022-09-26] MEDS: VANCOMYCIN 1.25 GM in NA CHLORIDE 0.9% 250 ML IVPB SCH (18:35)
[2022-09-26] MEDS: ATORVASTATIN 40 MG TAB PO SCH (21:25)
[2022-09-27] MEDS: PIPER TAZO 3.375 GM in NA CHLORIDE 0.9% 100 ML IV SCH ×3 (01:20→16:19)
[2022-09-27 05:07] LABS: Potassium 3.6 mmol/L (3.5-5.1)
[2022-09-27] MEDS: LEVOTHYROXINE SOD 0.025 MG TAB PO SCH (05:58)
[2022-09-27] MEDS ORDERED: POTASSIUM CL SA 10 MEQ TAB PO ONE (06:00)
[2022-09-27] MEDS: INSULIN -REGULAR HUMAN 50 UNIT/0.5 ML ML SQ SCH ×4 (07:30→20:44)
[2022-09-27] MEDS: AMIODARONE HCL 200 MG TAB PO SCH (08:00)
[2022-09-27] MEDS: VALSARTAN 160 MG TAB PO SCH (08:00)
[2022-09-27] MEDS: FAMOTIDINE 20 MG TAB PO SCH ×2 (08:00→20:44)
[2022-09-27] MEDS: GABAPENTIN 300 MG CAP PO SCH ×2 (08:00→20:44)
[2022-09-27] MEDS: allopurinoL 300 MG TAB PO SCH (08:00)
[2022-09-27] MEDS: FUROSEMIDE 40 MG TABLET PO SCH (08:00)
[2022-09-27] MEDS: METOPROLOL TAR 25 MG TAB PO SCH ×2 (08:01→20:43)
[2022-09-27] MEDS: DULOXETINE 20 MG CAP PO SCH (08:01)
[2022-09-27] MEDS: RIVAROXABAN 15 MG TABLET PO SCH (16:19)
[2022-09-27] MEDS: VANCOMYCIN 1.25 GM in NA CHLORIDE 0.9% 250 ML IVPB SCH (17:08)
[2022-09-27] MEDS: ATORVASTATIN 40 MG TAB PO SCH (20:44)
[2022-09-27 23:07] VITALS: O2SAT 94
[2022-09-28] MEDS: PIPER TAZO 3.375 GM in NA CHLORIDE 0.9% 100 ML IV SCH ×2 (00:24→08:27)
[2022-09-28 05:21] LABS: Potassium 3.5 mmol/L (3.5-5.1)
[2022-09-28] MEDS: LEVOTHYROXINE SOD 0.025 MG TAB PO SCH (05:26)
[2022-09-28] MEDS: INSULIN -REGULAR HUMAN 50 UNIT/0.5 ML ML SQ SCH (07:30)
[2022-09-28] MEDS: AMIODARONE HCL 200 MG TAB PO SCH (08:27)
[2022-09-28] MEDS: METOPROLOL TAR 25 MG TAB PO SCH (08:27)
[2022-09-28] MEDS: VALSARTAN 160 MG TAB PO SCH (08:28)
[2022-09-28] MEDS: GABAPENTIN 300 MG CAP PO SCH (08:28)
[2022-09-28] MEDS: FAMOTIDINE 20 MG TAB PO SCH (08:28)
[2022-09-28] MEDS: FUROSEMIDE 40 MG TABLET PO SCH (08:28)
[2022-09-28] MEDS: allopurinoL 300 MG TAB PO SCH (08:28)
[2022-09-28] MEDS: DULOXETINE 20 MG CAP PO SCH (08:28)
[2022-09-28] MEDS ORDERED: POTASSIUM CL SA 10 MEQ TAB PO ONE (09:00)
[2022-09-28 14:01] VITALS: TEMP 97.5
[2022-09-28 14:02] VITALS: BP 146/72
--- NOTE | 2022-09-28 18:01 | PN ---
Date of Progress Note: 09/26/2022 Subjective: The patient was seen this morning for followup. She was lying in bed, not in distress. Her left hand pain and swelling and redness is better, compared to before. No new complaints or pro blems reported. Objective: Vital Signs: Reviewed. HEENT: Unremarkable. Lungs: Clear to auscultation. Heart: Sounds normal. Abdomen: Soft, bowel sounds normal. No guarding, rigidity, tenderness, distention. Extremities: No leg edema. Left hand had mild swelling with redness, overall better than before. Laboratory Data: Sodium 133, potassium 3.5, chloride 99, bicarb 29, BUN 25, creatinine 1.05, glucose 150. Impression: 1.Cellulitis, left hand. 2.Urinary tract infection. 3.Toxic encephalopathy, improved. 4.Generalized weakness. 5.Debility. 6.Paroxysmal atrial fibrillation. 7.Hypertension. 8.Type 2 diabetes mellitus. Plan: We will continue current medication. Continue current antibiotics. Continue to work with [facility] sical therapy and we are waiting on insurance company's decision regarding custodial facility benefit. I will see her t omorrow for followup. HITESH/MODL Voice ID: [id number] Report ID: [id number]
--- NOTE | 2022-09-28 18:34 | PN ---
Date of Progress Note: 09/27/2022 Subjective: The patient was seen this morning for followup. No new complaints, problems reported by patient. She was lying in bed, not in distress. She is ambulating with physical therapy, able to g et in and out of bed on her own into the chair or wheelchair here at the hospital, so this is definit krystyna improvement compared to before. Objective: Vital Signs: Reviewed. HEENT: Unremarkable. Lungs: Clear to auscultation. Heart: Sounds normal. Abdomen: Soft. Bowel sounds normal. No guarding, rigidity, tenderness, distention. Extremities: No leg edema. Left hand swelling and redness are better today than yesterday. Range o f motion is better today than yesterday. Impression: 1.Cellulitis, left hand. 2.Urinary tract infection. 3.Toxic encephalopathy. 4.Generalized weakness. 5.Debility. 6.Osteoarthritis, multiple sites. 7.Hypertension. 8.Type 2 diabetes mellitus. Plan: We will continue current antibiotic. Physical therapy to continue to work with the patient. I did receive information from Social Service today that the patient's insurance company has denied s [facility] nursing facility placement request and we do have option of appeal. I did call insurance comp any to request peer to peer appeal process which is scheduled for tomorrow. Meanwhile, we will tianna nue current medical management. The patient tells me that she really would like to go back to [facility] and she feels like she is able to go back as she has achieved her previous level of functioning again. HITESH/MODL Voice ID: [id number] Report ID: [id number]
--- NOTE | 2022-09-30 08:43 | DS ---
Date of Discharge: 09/28/2022 Disposition: Discharged to go home. Physical Examination: HEENT: Unremarkable. Lungs: Clear to auscultation. No wheezing. No rales. Heart: Sounds normal. Abdomen: Soft. Bowel sounds normal. No guarding, rigidity, tenderness, distention. Extremities: No leg edema. Discharge Medications And Instructions: 1.Continue all prior home medications including Augmentin, which was prescribed 1 or 2 days prior to this admission. 2.Take doxycycline 100 mg 2 times a day for 1 week and prescription was sent to her [facility] from office. 3.Keep left hand elevated all the time. 4.Follow up at my office during the first or second week of October 2022. Physical Examination: HEENT: Unremarkable. Lungs: Clear to auscultation. Heart: Sounds normal. Abdomen: Soft. Bowel sounds normal. No guarding, rigidity, tenderness, distention. Extremities: No leg edema. Left upper extremity has very minimal swelling and very minimal redness, but overall it is significantly better compared to what it was before. Range of motion of the left hand is also better than before. Laboratory Data: Upon admission on 09/18/2022; white count 9.7, hemoglobin 17.4, platelets 152. Las t CBC from 09/25/2022; white count 8.3, hemoglobin 12.5, platelets 193. Last chemistry today; sodium 134, potassium 3.5, chloride 100, bicarb 27, BUN 19, creatinine 0.72, glucose 182. Upon admission; sodium 135, potassium 3.7, chloride 97, bicarb 32, BUN 44, creatinine 1.70, glucose 172. Liver funct ion tests unremarkable. Procalcitonin less than 0.05. Hospital Course: This is an 81-year-old very pleasant female patient, who was brought into office wi th altered mental status problem. The patient recently was diagnosed as having urinary tract infecti on as outpatient and after obtaining urine culture results, we had to change her antibiotic and we st arted the patient on Augmentin and day after this antibiotic was started, the patient was brought int o office by family member because of altered mental status. The patient was admitted to the hospital and after she was admitted, she was started on IV ceftriaxone as per urine culture. Repeat urine cu lture was also done upon admission and that also grew E coli. The patient's other home medications w ere continued. During this hospitalization, the patient also started to have problem with cellulitis of left upper extremity where her left hand had swelling and extremely painful range of motion. We changed her antibiotic from ceftriaxone to Zosyn and we did not see appropriate improvement so we act ann marielly added vancomycin along with the Zosyn and that resulted in significant improvement in her left hand swelling, pain and redness and range of motion. Initially, the patient had significant generali zed weakness and she was not able to get out of the bed and was not able to do any therapy. Physical Therapy was consulted and therapist continue to work with the patient and over a period of time, the patient's weakness problem has improved. Now, she is able to get out of the bed independently to [facility] in the chair and she also ambulates 50 to 70 feet with Physical Therapy. Prior to this or admissio n while she was living at [facility], her baseline daily activity as she describes is that she does not ambulate at all, she just transfers herself from bed to the wheelchair and wheelchair to the bed independently, and she is able to do those kind of activities independently again. Initially becaus e of her significant weakness, she was not able to return back to [facility], so we did consult Soc ial Service and we initiated request to insurance [employer] to send her to snf facility and insurance [employer] denied it and I did talk to insurance [employer] physician for peer to peer review, b ut by that time, the patient's condition already has improved so insurance company denial remains in place, but at the same time, the patient's condition has improved well enough that she does not need to go to snf facility and as per my discussion with the patient today, she also tells me that she does not want to go to such facility. She is ready to go back to [facility]. The patient was discharged to go back today in stable condition. Final Diagnoses: 1.Toxic encephalopathy. 2.Urinary tract infection. 3.Cellulitis, left upper extremity. 4.Chronic kidney disease, stage 3B. 5.Hypertension. 6.Hyperlipidemia, mixed. 7.Chronic diastolic heart failure. 8.Paroxysmal atrial fibrillation. 9.Type 2 diabetes mellitus. 10.Allergic rhinitis. 11.Diverticulosis. 12.Colon cancer, splenic flexure. 13.Anxiety. 14.Depression. 15.Osteoarthritis, multiple sites. 16.Chronic anticoagulation therapy. HITESH/MODL Voice ID: [id number] Report ID: [id number]
== END 2022-09-28 14:02 | disposition home or self-care (01) | DRG 689 ==
LOC: 4TH 13:04
PROVIDERS: ADMIT Internal Medicine; ATTEND Internal Medicine
DX: N39.0 Urinary tract infection, site not specified (principal); G92.9 Unspecified toxic encephalopathy; I13.0 Hypertensive heart and chronic kidney disease with heart failure and stage 1 through stage 4 chronic kidney disease, or unspecified chronic kidney disease; I50.32 Chronic diastolic (congestive) heart failure; L03.114 Cellulitis of left upper limb; N18.32 Chronic kidney disease, stage 3b; E11.22 Type 2 diabetes mellitus with diabetic chronic kidney disease; E78.2 Mixed hyperlipidemia; I48.0 Paroxysmal atrial fibrillation; J30.9 Allergic rhinitis, unspecified; F41.9 Anxiety disorder, unspecified; F32.A Depression, unspecified; M19.09 Primary osteoarthritis, other specified site; K57.90 Diverticulosis of intestine, part unspecified, without perforation or abscess without bleeding; B96.20 Unspecified Escherichia coli [E. coli] as the cause of diseases classified elsewhere; Z66 Do not resuscitate; Z79.01 Long term (current) use of anticoagulants; Z90.49 Acquired absence of other specified parts of digestive tract; Z90.710 Acquired absence of both cervix and uterus; Z85.038 Personal history of other malignant neoplasm of large intestine; Z20.822 Contact with and (suspected) exposure to COVID-19
CPT/HCPCS: 36415; 80048; 80053; 80202; 81001; 82947; 83605; 83735; 84132; 84145; 85025; 87040; 87077; 87086; 87088; 87186; 87811; 97110; 97116; 97161; 97530; J1815; J2543; J3370; J7030; J7050

== ENCOUNTER 2022-09-28 19:02 | Inpatient (IN) | payer OTHER ==
[~2022-09-28 19:02] MED LIST: IPRATROPIUM BROM 0.5MG/2.5ML NEB PRN
--- OUTSIDE RECORDS SUMMARY | 2022-09-28 19:11 | XMS REPORT | Continuity of Care Document ---
:1940 Author Organization [facility] [place] [facility] t Address [address] [place] [address] Care Team Providers Name Role Phone Mauri [...] Unavailable Aditi LEYVA, Irma Reed Attending Clinician [phone] Dex Fair MD Attending Clinician Rosario Lopez Attending Clinician Unavailable Doctor Unassigned, [place] Attending Clinician Unavailable Nurse, [facility] Perico Attending Clinician Unavailable YAKOV GARCIA Attending Clinician Unavailable RUSS ALLEN Admitting Clinician Unavailable RADHA, YAKOV Admitting Clinician Unavailable Payers Payer Name Policy Type Policy Number Effective Date Expiration Date S ource AETNA MEDICARE 53 [id number] 2021 Common S pirit 00:00:[address] - [facility] AETNA MANAGED [id number] 2020 MEDICARE 00:00:00 PPO-RENEE AETNA MEDICARE C1 [id number] Common Spi rit PPO [facility] AETNA MEDICARE C1 [id number] Common [facility] rit PPO [facility] AETNA MEDICARE C1 [id number] Common Spi rit PPO [facility] AETNA MEDICARE C1 [id number] Common Spi rit [facility] Problems Condition Condition Condition Status Onset Resolution Last Treating Co mments Source Name Details Category Date Date Treatment Clinician Date Cerebrovas Cerebrovas Disease Active C [facility]15 [facility] accident accident 00:00: Medica l (CVA), (CVA), 00 Center unspecifie unspecifie d d mechanism mechanism Stroke Stroke Disease Active [facility] 00:00: Medical 00 Center CHF CHF Disease [...] (hypertens (hypertens it y of ion), ion), [place] benign benign [facility] HLD HLD Disease Active Univers (hyperlipi (hyperlipi it y of demia) demia) [facility] Osteoarthr Osteoarthr Disease Active U nivers [...] sides both sides of body of body [id number] Recurrent Problem Com mon UTI Spirit [facility] [id number] Other Problem Common chronic [facility] pain [facility] [id number] Pain, Problem Common joint, [facility] knee, [facility] right [facility] [id number] Primary Problem Comm on osteoarthr Spirit itis of [facility] right knee [facility] [id number] Arthritis Problem Co mmon [id number] of knee, [facility] left [facility] [id number] Unilateral Problem C ommon primary Spirit osteoarthr - [facility] itis, left knee [facility] Allergies, Adverse Reactions, Alerts Allergy Allergy Status Severity Reaction(s) Onset Inactive Treating Comm ents Source Name Type Date Date Clinician NO KNOWN Drug Active Univers ALLERGIE Class ity of [facility] [place] [facility] Social History Social Habit Start Date Stop Date Quantity Comments Source Exposure to Not sure University of SARS-CoV-2 [place] Medical (event) Branch History of Common Spirit - Tobacco Use [facility] Alcohol intake 2021-09-16 2021-09-16 Current [facility] 00:00:00 00:00:00 non-drinker of [facility] alcohol (finding) Branch Tobacco use and 2018-12-03 2018-12-03 Smokeless tobacco Un iversity of exposure 00:00:00 00:00:00 non-user [facility] Sex Assigned At [address] 1940 [facility] 00:00:00 00:00:00 Medical Center Smoking Status Start Date Stop Date Source Never Smoker [facility] Medications Ordered Filled Start Stop [...] 00:00: 00:00 00 :00 cefpodoxime 2020-10- No [id number] 100mg Take 1 Univers 100 mg 2- 12-12 tablet by ity of tablet 00:00: 05:59 mouth 2 [place] 00 :00 (two) Medical times Branch daily for 7 days. Hyalgan 20 Hyalgan 20 2020-0 No 20mg C ommon mg mg 7-15 Spirit 00:00: - [facility]I 00 [facility] Hyalgan 20 Hyalgan 20 2020-0 No 20mg C ommon mg mg 7-15 Spirit 00:00: - CHI 00 [facility] Hyalgan 20 Hyalgan 20 2020-0 No 20mg C ommon mg mg 7-15 Spirit 00:00: - CHI 00 [facility] Hyalgan 20 Hyalgan 20 2020-0 No 20mg C ommon mg mg 7-15 Spirit 00:00: - CHI 00 [facility] Hyalgan 20 Hyalgan 20 2020-0 No 20mg C ommon mg mg 7-15 Spirit 00:00: - CHI 00 [facility] Hyalgan 20 Hyalgan 20 2020-0 No 20mg C ommon mg mg 7-15 Spirit 00:00: - [facility]I 00 [facility] Hyalgan 20 Hyalgan 20 2020-0 No 20mg C ommon mg mg 7-15 Spirit 00:00: - [facility]I 00 [facility] Hyalgan 20 Hyalgan 20 2020-0 No 20mg C ommon mg mg 04-27 Spirit 00:00: - [facility] Hyalgan 20 Hyalgan 20 2020-0 No 20mg C ommon mg mg 04-27 Spirit 00:00: - [facility] Hyalgan 20 Hyalgan 20 2020-0 No 20mg C ommon mg mg 04-27 Spirit 00:00: - [facility] Hyalgan 20 Hyalgan 20 2020-0 No 20mg C ommon mg mg 04-27 Spirit 00:00: - [facility]I [facility] Hyalgan 20 Hyalgan 20 2020-0 No 20mg C ommon mg mg 04-20 Spirit 00:00: - CHI [facility] Hyalgan 20 Hyalgan 20 2020-0 No 20mg C ommon mg mg 04-20 Spirit 00:00: - [facility] Hyalgan 20 Hyalgan 20 2020-0 No 20mg C ommon mg mg 04-20 Spirit 00:00: - [facility] Hyalgan 20 Hyalgan 20 2020-0 No 20mg C ommon mg mg 04-20 Spirit 00:00: - [facility] Hyalgan 20 Hyalgan 20 2020-0 No 20mg C ommon mg mg 04-20 Spirit 00:00: - [facility] Hyalgan 20 Hyalgan 20 2020-0 No 20mg C ommon mg mg 04-20 Spirit 00:00: - [facility] Hyalgan 20 Hyalgan 20 2020-0 No 20mg C ommon mg mg 04-20 Spirit 00:00: - [facility] Hyalgan 20 Hyalgan 20 1-0 No 20mg C ommon mg mg 04-20 Spirit 00:00: - [facility] Hyalgan 20 Hyalgan 20 1-0 No 20mg C ommon mg mg 04-20 Spirit 00:00: - [facility] Hyalgan 20 Hyalgan 20 1-0 No 20mg C ommon mg mg 04-20 Spirit 00:00: - [facility] Hyalgan 20 Hyalgan 20 1-0 No 20mg C ommon mg mg 7-08 Spirit 00:00: - CHI 00 [facility] Kenalog Kenalog 2020-0 No 40mg Common (Triamcinol (Triamcinol 6-30 S pirit one) one) 00:00: - CHI 00 [facility] Bupivicaine Bupivicaine 2020-0 No Common [place] 6-30 Spirit 00:00: - CHI 00 [facility] Hyalgan 20 Hyalgan 20 2020-0 No 20mg C ommon mg mg 6-30 Spirit 00:00: - CHI 00 [facility] Kenalog Kenalog 2020-0 No 40mg Common (Triamcinol (Triamcinol 6-30 S pirit one) one) 00:00: - CHI 00 [facility] Bupivicaine Bupivicaine 2020-0 No Common [place] 6-30 Spirit 00:00: - CHI 00 [facility] Hyalgan 20 Hyalgan 20 2020-0 No 20mg C ommon mg mg 6-30 Spirit 00:00: - CHI 00 [facility] Kenalog Kenalog 2020-0 No 40mg Common (Triamcinol (Triamcinol 6-30 S pirit one) one) 00:00: - CHI 00 [facility] Bupivicaine Bupivicaine 2020-0 No 2.5mg Common [place] 6-30 Spirit 00:00: - CHI 00 [facility] Hyalgan 20 Hyalgan 20 2020-0 No 20mg C ommon mg mg 6-30 Spirit 00:00: - CHI 00 [facility] Kenalog Kenalog 2020-0 No 40mg Common (Triamcinol (Triamcinol 6-30 S pirit one) one) 00:00: - CHI 00 [facility] Bupivicaine Bupivicaine 2020-0 No 2.5mg Common [place] 6-30 Spirit 00:00: - CHI 00 [facility] Hyalgan 20 Hyalgan 20 2020-0 No 20mg C ommon mg mg 6-30 Spirit 00:00: - CHI 00 [facility] Kenalog Kenalog 2020-0 No 40mg Common (Triamcinol (Triamcinol 6-30 S pirit one) one) 00:00: - CHI 00 [facility] Bupivicaine Bupivicaine 2020-0 No 2.5mg Common [place] 6-30 Spirit 00:00: - [facility]I 00 [facility] Hyalgan 20 Hyalgan 20 2020-0 No 20mg C ommon mg mg 6-30 Spirit 00:00: - CHI 00 [facility] Kenalog Kenalog 0 No 40mg Common (Triamcinol (Triamcinol 6-30 S pirit one) one) 00:00: - CHI 00 [facility] Bupivicaine Bupivicaine 2020-0 No 2.5mg Common [place] 6-30 Spirit 00:00: - CHI 00 [facility] Hyalgan 20 Hyalgan 20 2020-0 No 20mg C ommon mg mg 6-30 Spirit 00:00: - CHI 00 [facility] Kenalog Kenalog 0 No 40mg Common (Triamcinol (Triamcinol 6-30 S pirit one) one) 00:00: - CHI 00 [facility] Bupivicaine Bupivicaine 2020-0 No 2.5mg Common [place] 6-30 Spirit 00:00: - CHI 00 [facility] Hyalgan 20 Hyalgan 20 2020-0 No 20mg C ommon mg mg 6-30 Spirit 00:00: - CHI 00 [facility] Kenalog Kenalog 0 No 40mg Common (Triamcinol (Triamcinol 6-30 S pirit one) one) 00:00: - CHI 00 [facility] Bupivicaine Bupivicaine 2020-0 No 2.5mg Common [place] 6-30 Spirit 00:00: - CHI 00 [facility] Hyalgan 20 Hyalgan 20 2020-0 No 20mg C ommon mg mg 6-30 Spirit 00:00: - CHI 00 [facility] Kenalog Kenalog 2020-0 No 40mg Common (Triamcinol (Triamcinol 6-30 S pirit one) one) 00:00: - CHI 00 [facility] Bupivicaine Bupivicaine 2020-0 No 2.5mg Common [place] 6-30 Spirit 00:00: - CHI 00 [facility] Hyalgan 20 Hyalgan 20 2020-0 No 20mg C ommon mg mg 6-30 Spirit 00:00: - CHI 00 [facility] Kenalog Kenalog 2020-0 No 40mg Common (Triamcinol (Triamcinol 6-30 S pirit one) one) 00:00: - CHI 00 [facility] Bupivicaine Bupivicaine 2020-0 No 2.5mg Common [place] 6-30 Spirit 00:00: - CHI 00 [facility] Hyalgan 20 Hyalgan 20 2020-0 No 20mg C ommon mg mg 6-30 Spirit 00:00: - CHI 00 [facility] Kenalog Kenalog 2020-0 No 40mg Common (Triamcinol (Triamcinol 6-30 S pirit one) one) 00:00: - CHI 00 [facility] Bupivicaine Bupivicaine 2020-0 No 2.5mg Common [place] 6-30 Spirit 00:00: - CHI 00 [facility] Hyalgan 20 Hyalgan 20 2020-0 No 20mg C ommon mg mg 6-30 Spirit 00:00: - CHI 00 [facility] Gel-One Gel-One 2020-0 No 3mL Common 8-11 Spirit 00:00: - CHI 00 [facility] Bupivicaine Bupivicaine 2020-0 No 4mL Common [place] 8-11 Spirit 00:00: - CHI 00 [facility] Kenalog Kenalog 2020-0 No 40mg Common (Triamcinol (Triamcinol 8-11 S pirit one) one) 00:00: - CHI 00 [facility] Gel-One Gel-One 2020-0 No 3mL Common 8-11 Spirit 00:00: - CHI 00 [facility] Bupivicaine Bupivicaine 2020-0 No 4mL Common [place] 8-11 Spirit 00:00: - CHI 00 [facility] Kenalog Kenalog 2020-0 No 40mg Common (Triamcinol (Triamcinol 8-11 S pirit one) one) 00:00: - CHI 00 [facility] Gel-One Gel-One 2020-0 No 3mL Common 8-11 Spirit 00:00: - CHI 00 [facility] Bupivicaine Bupivicaine 2020-0 No 4mL Common [place] 8-11 Spirit 00:00: - CHI 00 [facility] Kenalog Kenalog 2020-0 No 40mg Common (Triamcinol (Triamcinol 8-11 S pirit one) one) 00:00: - CHI 00 [facility] Gel-One Gel-One 2020-0 No 3mL Common 8-11 Spirit 00:00: - CHI 00 [facility] Bupivicaine Bupivicaine 2020-0 No 4mL Common [place] 8-11 Spirit 00:00: - CHI 00 [facility] Kenalog Kenalog 2020-0 No 40mg Common (Triamcinol (Triamcinol 8-11 S pirit one) one) 00:00: - CHI 00 [facility] Gel-One Gel-One 2020-0 No 3mL Common 8-11 Spirit 00:00: - CHI 00 [facility] Bupivicaine Bupivicaine 2020-0 No 4mL Common [place] 8-11 Spirit 00:00: - CHI 00 [facility] Kenalog Kenalog 2020-0 No 40mg Common (Triamcinol (Triamcinol 8-11 S pirit one) one) 00:00: - CHI 00 [facility] Gel-One Gel-One 2020-0 No 3mL Common 8-11 Spirit 00:00: - [facility]I 00 [facility] Bupivicaine Bupivicaine 2020-0 No 4mL Common [place] 8-11 Spirit 00:00: - CHI 00 [facility] Kenalog Kenalog 2020-0 No 40mg Common (Triamcinol (Triamcinol 8-11 S pirit one) one) 00:00: - CHI 00 [facility] Gel-One Gel-One 2020-0 No 3mL Common 8-11 Spirit 00:00: - [facility]I 00 [facility] Bupivicaine Bupivicaine 2020-0 No 4mL Common [place] 8-11 Spirit 00:00: - CHI 00 [facility] Kenalog Kenalog 2020-0 No 40mg Common (Triamcinol (Triamcinol 8-11 S pirit one) one) 00:00: - CHI 00 [facility] Gel-One Gel-One 2020-0 No 3mL Common 8-11 Spirit 00:00: - CHI 00 [facility] Bupivicaine Bupivicaine 2020-0 No 4mL Common [place] 8-11 Spirit 00:00: - CHI 00 [facility] Kenalog Kenalog 2020-0 No 40mg Common (Triamcinol (Triamcinol 8-11 S pirit one) one) 00:00: - CHI 00 [facility] Gel-One Gel-One 2020-0 No 3mL Common 8-11 Spirit 00:00: - [facility]I 00 [facility] Bupivicaine Bupivicaine 2020-0 No 4mL Common [place] 8-11 Spirit 00:00: - CHI 00 [facility] Kenalog Kenalog 2020-0 No 40mg Common (Triamcinol (Triamcinol 8-11 S pirit one) one) 00:00: - [facility] Gel-One Gel-One 2020-0 No 3mL Common 8-11 Spirit 00:00: - [facility] Bupivicaine Bupivicaine 2020-0 No 4mL Common [place] 8-11 Spirit 00:00: - CHI 00 [facility] Kenalog Kenalog 2020-0 No 40mg Common (Triamcinol (Triamcinol 8-11 S pirit one) one) 00:00: - CHI 00 [facility] Gel-One Gel-One 2020-0 No 3mL Common 8-11 Spirit 00:00: - [facility] Bupivicaine Bupivicaine 2020-0 No 4mL Common [place] 8-11 Spirit 00:00: - CHI 00 [facility] Kenalog Kenalog 2020-0 No 40mg Common (Triamcinol (Triamcinol 8-11 S pirit one) one) 00:00: - CHI 00 [facility] DULOXETINE 2020-0 Yes [id number] 20mg TAKE 1 U nivers 20 mg 5-22 CAPSULE BY ity of capsule 00:00: MOUTH [place] 00 DAILY. Medical KEEP ON Branch FILE. DULOXETINE 2020-0 Yes [id number] 20mg TAKE 1 U nivers 20 mg 5-22 CAPSULE BY ity of capsule 00:00: MOUTH [place] 00 DAILY. Medical KEEP ON Branch FILE. DULOXETINE 2020-0 Yes [id number] 20mg TAKE 1 U nivers 20 mg 5-22 CAPSULE BY ity of capsule 00:00: MOUTH [place] 00 DAILY. Medical KEEP ON Branch FILE. DULOXETINE 2020-0 Yes [id number] 20mg TAKE 1 U nivers 20 mg 5-22 CAPSULE BY ity of capsule 00:00: MOUTH [place] 00 DAILY. Medical KEEP ON Branch FILE. DULOXETINE 2020-0 Yes [id number] 20mg TAKE 1 U nivers 20 mg 5-22 CAPSULE BY ity of capsule 00:00: MOUTH [place] 00 DAILY. Medical KEEP ON Branch FILE. DULOXETINE 2020-0 Yes [id number] 20mg TAKE 1 U nivers 20 mg 5-22 CAPSULE BY ity of capsule 00:00: MOUTH [place] 00 DAILY. Medical KEEP ON Branch FILE. DULOXETINE 2020-0 Yes [id number] 20mg TAKE 1 U nivers 20 mg 5-22 CAPSULE BY ity of capsule 00:00: MOUTH [place] 00 DAILY. Medical KEEP ON Branch FILE. DULOXETINE 2020-0 Yes [id number] 20mg TAKE 1 U nivers 20 mg 5-22 CAPSULE BY ity of capsule 00:00: MOUTH [place] 00 DAILY. Medical KEEP ON Branch FILE. METOPROLOL 2020-0 Yes [id number] TAKE 1 U nivers TARTRATE 3-16 TABLET BY ity of 100 mg 00:00: MOUTH [place] tablet 00 TWICE A Medical DAY Branch METOPROLOL 2020-0 Yes [id number] TAKE 1 U nivers TARTRATE 3-16 TABLET BY ity of 100 mg 00:00: MOUTH [place] tablet 00 TWICE A Medical DAY Branch METOPROLOL 2020-0 Yes [id number] TAKE 1 U nivers TARTRATE 3-16 TABLET BY ity of 100 mg 00:00: MOUTH [place] tablet 00 TWICE A Medical DAY Branch METOPROLOL 2020-0 Yes [id number] TAKE 1 U nivers TARTRATE 3-16 TABLET BY ity of 100 mg 00:00: MOUTH [place] tablet 00 TWICE A Medical DAY Branch METOPROLOL 2020-0 Yes [id number] TAKE 1 U nivers TARTRATE 3-16 TABLET BY ity of 100 mg 00:00: MOUTH [place] tablet 00 TWICE A Medical DAY Branch METOPROLOL 2020-0 Yes [id number] TAKE 1 U nivers TARTRATE 3-16 TABLET BY ity of 100 mg 00:00: MOUTH [place] tablet 00 TWICE A Medical DAY Branch METOPROLOL 2020-0 Yes [id number] TAKE 1 U nivers TARTRATE 3-16 TABLET BY ity of 100 mg 00:00: MOUTH [place] tablet 00 TWICE A Medical DAY Branch METOPROLOL 2020-0 Yes [id number] TAKE 1 U nivers TARTRATE 3-16 TABLET BY ity of 100 mg 00:00: MOUTH [place] tablet 00 TWICE A Medical DAY Branch METOPROLOL 2020-0 Yes [id number] TAKE 1 U nivers TARTRATE 3-16 TABLET BY ity of 100 mg 00:00: MOUTH [place] tablet 00 TWICE A Medical DAY Branch METOPROLOL 2020-0 Yes [id number] TAKE 1 U nivers TARTRATE 3-16 TABLET BY ity of 100 mg 00:00: MOUTH [place] tablet 00 TWICE A Medical DAY Branch METOPROLOL 2020-0 Yes [id number] TAKE 1 U nivers TARTRATE 3-16 TABLET BY ity of 100 mg 00:00: MOUTH [place] tablet 00 TWICE A Medical DAY Branch OLMESARTAN 2018-10 Yes [id number] 40mg TAKE 1 Un mega 40 mg 2-27 TABLET BY ity of tablet 00:00: MOUTH [place] 00 DAILY. Medical KEEP ON Branch FILE. OLMESARTAN 2018-10 Yes [id number] 40mg TAKE 1 Un mega 40 mg 2-27 TABLET BY ity of tablet 00:00: MOUTH [place] 00 DAILY. Medical KEEP ON Branch FILE. OLMESARTAN 2018-10 Yes [id number] 40mg TAKE 1 Un mega 40 mg 2-27 TABLET BY ity of tablet 00:00: MOUTH [place] 00 DAILY. Medical KEEP ON Branch FILE. OLMESARTAN 2018-10 Yes [id number] 40mg TAKE 1 Un mega 40 mg 2-27 TABLET BY ity of tablet 00:00: MOUTH [place] 00 DAILY. Medical KEEP ON Branch FILE. OLMESARTAN 2018-10 Yes [id number] 40mg TAKE 1 Un mega 40 mg 2-27 TABLET BY ity of tablet 00:00: MOUTH [place] 00 DAILY. Medical KEEP ON Branch FILE. OLMESARTAN 2018-10 Yes [id number] 40mg TAKE 1 Un mega 40 mg 2-27 TABLET BY ity of tablet 00:00: MOUTH [place] 00 DAILY. Medical KEEP ON Branch FILE. OLMESARTAN 2018-10 Yes [id number] 40mg TAKE 1 Un mega 40 mg 2-27 TABLET BY ity of tablet 00:00: MOUTH [place] 00 DAILY. Medical KEEP ON Branch FILE. OLMESARTAN 2018-10 Yes [id number] 40mg TAKE 1 Un mega 40 mg 2-27 TABLET BY ity of tablet 00:00: MOUTH [place] 00 DAILY. Medical KEEP ON Branch FILE. OLMESARTAN 2018-10 Yes [id number] 40mg TAKE 1 Un mega 40 mg 2-27 TABLET BY ity of tablet 00:00: MOUTH [place] 00 DAILY. Medical KEEP ON Branch FILE. OLMESARTAN 2018-10 Yes [id number] 40mg TAKE 1 Un mega 40 mg 2-27 TABLET BY ity of tablet 00:00: MOUTH [place] 00 DAILY. Medical KEEP ON Branch FILE. OLMESARTAN 2018-10 Yes [id number] 40mg TAKE 1 Un mega 40 mg 2-27 TABLET BY ity of tablet 00:00: MOUTH [place] 00 DAILY. Medical KEEP ON Branch FILE. OLMESARTAN 2018-10 Yes [id number] 40mg TAKE 1 Un mega 40 mg 2-27 TABLET BY ity of tablet 00:00: MOUTH [place] 00 DAILY. Medical KEEP ON Branch FILE. OLMESARTAN 2018-10 Yes [id number] 40mg TAKE 1 Un mega 40 mg 2-27 TABLET BY ity of tablet 00:00: MOUTH [place] 00 DAILY. Medical KEEP ON Branch FILE. OLMESARTAN 2018-10 Yes [id number] 40mg TAKE 1 Un mega 40 mg 2-27 TABLET BY ity of tablet 00:00: MOUTH [place] 00 DAILY. Medical KEEP ON Branch FILE. OLMESARTAN 2018-10 Yes [id number] 40mg TAKE 1 Un mega 40 mg 2-27 TABLET BY ity of tablet 00:00: MOUTH [place] 00 DAILY. Medical KEEP ON Branch FILE. OLMESARTAN 2018-10 Yes [id number] 40mg TAKE 1 Un mega 40 mg 2-27 TABLET BY ity of tablet 00:00: MOUTH [place] 00 DAILY. Medical KEEP ON Branch FILE. OLMESARTAN 2018-10 Yes [id number] 40mg TAKE 1 Un mega 40 mg 2-27 TABLET BY ity of tablet 00:00: MOUTH [place] 00 DAILY. Medical KEEP ON Branch FILE. OLMESARTAN 2018-10 Yes [id number] 40mg TAKE 1 Un mega 40 mg [...] s: atrial fibrillati on METOLAZONE 2018-10 Yes [id number] 5mg TAKE 1 Un mega 5 mg tablet 2-09 TABLET BY ity of 00:00: MOUTH [place] 00 WEEKLY. Medical TAKE 30 Branch MINUTES BEFORE FUROSEMIDE . METOLAZONE 2018-10 Yes [id number] 5mg TAKE 1 Un mega 5 mg tablet 2-09 TABLET BY ity of 00:00: MOUTH [place] 00 WEEKLY. Medical TAKE 30 Branch MINUTES BEFORE FUROSEMIDE . METOLAZONE 2018-10 Yes [id number] 5mg TAKE 1 Un mega 5 mg tablet 2-09 TABLET BY ity of 00:00: MOUTH WEEKLY. Medical TAKE 30 Branch MINUTES BEFORE FUROSEMIDE . METOLAZONE 2018-10 Yes [id number] 5mg TAKE 1 Un mega 5 mg tablet 2-09 TABLET BY ity of 00:00: MOUTH [place] 00 WEEKLY. Medical TAKE 30 Branch MINUTES BEFORE FUROSEMIDE . METOLAZONE 2018-10 Yes [id number] 5mg TAKE 1 Un mega 5 mg tablet 2-09 TABLET BY ity of 00:00: MOUTH [place] WEEKLY. Medical TAKE 30 Branch MINUTES BEFORE FUROSEMIDE . METOLAZONE 2018-10 Yes [id number] 5mg TAKE 1 Un mega 5 mg tablet 2-09 TABLET BY ity of 00:00: MOUTH [place] WEEKLY. Medical TAKE 30 Branch MINUTES BEFORE FUROSEMIDE . METOLAZONE 2018-10 Yes [id number] 5mg TAKE 1 Un mega 5 mg tablet 2-09 TABLET BY ity of 00:00: MOUTH [place] 00 WEEKLY. Medical TAKE 30 Branch MINUTES BEFORE FUROSEMIDE . METOLAZONE 2018-10 Yes [id number] 5mg TAKE 1 Un mega 5 mg tablet 2-09 TABLET BY ity of 00:00: MOUTH [place] WEEKLY. Medical TAKE 30 Branch MINUTES BEFORE FUROSEMIDE . METOLAZONE 2018-10 Yes [id number] 5mg TAKE 1 Un mega 5 mg tablet 2-09 TABLET BY ity of 00:00: MOUTH [place] WEEKLY. Medical TAKE 30 Branch MINUTES BEFORE FUROSEMIDE . METOLAZONE 2018-10 Yes [id number] 5mg TAKE 1 Un mega 5 mg tablet 2-09 TABLET BY ity of 00:00: MOUTH [place] 00 WEEKLY. Medical TAKE 30 Branch MINUTES BEFORE FUROSEMIDE . METOLAZONE 2018-10 Yes [id number] 5mg TAKE 1 Un mega 5 mg tablet 2-09 TABLET BY ity of 00:00: MOUTH [place] 00 WEEKLY. Medical TAKE 30 Branch MINUTES BEFORE FUROSEMIDE . METOLAZONE 2018-10 Yes [id number] 5mg TAKE 1 Un mega 5 mg tablet 2-09 TABLET BY ity of 00:00: MOUTH [place] 00 WEEKLY. Medical TAKE 30 Branch MINUTES BEFORE FUROSEMIDE . METOLAZONE 2018-10 Yes [id number] 5mg TAKE 1 Un mega 5 mg tablet 2-09 TABLET BY ity of 00:00: MOUTH [place] 00 WEEKLY. Medical TAKE 30 Branch MINUTES BEFORE FUROSEMIDE . METOLAZONE 2018-10 Yes [id number] 5mg TAKE 1 Un mega 5 mg tablet 2-09 TABLET BY ity of 00:00: MOUTH [place] 00 WEEKLY. Medical TAKE 30 Branch MINUTES BEFORE FUROSEMIDE . METOLAZONE 2018-10 Yes [id number] 5mg TAKE 1 Un mega 5 mg tablet 2-09 TABLET BY ity of 00:00: MOUTH [place] 00 WEEKLY. Medical TAKE 30 Branch MINUTES BEFORE FUROSEMIDE . METOLAZONE 2018-10 Yes [id number] 5mg TAKE 1 Un mega 5 mg tablet 2-09 TABLET BY ity of 00:00: MOUTH [place] 00 WEEKLY. Medical TAKE 30 Branch MINUTES BEFORE FUROSEMIDE . METOLAZONE 2018-10 Yes [id number] 5mg TAKE 1 Un mega 5 mg tablet 2-09 TABLET BY ity of 00:00: MOUTH [place] 00 WEEKLY. Medical TAKE 30 Branch MINUTES BEFORE FUROSEMIDE . METOLAZONE 2018-10 Yes [id number] 5mg TAKE 1 Un mega 5 mg [...] of (ALPHAGAN P 16:31: each eye 3 [place] OPHTHALMIC) 49 (three) Medic al times Branch [...] 7-11 mouth. ity of ITAMIN D3 16:07: [place] (CALTRATE 35 Medical 600 + D Branch ORAL) CALCIUM 2019-0 Yes Take by Univers CARBONATE/V 7-11 mouth. ity of ITAMIN D3 16:07: [place] (CALTRATE 35 Medical 600 + D Branch ORAL) CALCIUM 2019-0 Yes Take by Univers CARBONATE/V 7-11 mouth. ity of ITAMIN D3 16:07: [place] (CALTRATE 35 Medical 600 + D Branch ORAL) CALCIUM 2019-0 Yes Take by Univers CARBONATE/V 7-11 mouth. ity of ITAMIN D3 16:07: [place] (CALTRATE 35 Medical 600 + D Branch ORAL) CALCIUM 2019-0 Yes Take by Univers CARBONATE/V 7-11 mouth. ity of ITAMIN D3 16:07: [place] (CALTRATE 35 Medical 600 + D Branch ORAL) CALCIUM 2019-0 Yes Take by Univers CARBONATE/V 7-11 mouth. ity of ITAMIN D3 16:07: [place] (CALTRATE 35 Medical 600 + D Branch ORAL) CALCIUM 2019-0 Yes Take by [facility] CARBONATE/V 7-11 mouth. ity of ITAMIN D3 16:07: [place] (CALTRATE 35 Medical 600 + D Branch ORAL) CALCIUM 2019-0 Yes Take by [facility] CARBONATE/V 7-11 mouth. ity of ITAMIN D3 16:07: [place] (CALTRATE 35 Medical 600 + D Branch ORAL) CALCIUM 2019-0 Yes Take by [facility] CARBONATE/V 7-11 mouth. ity of ITAMIN D3 16:07: [place] (CALTRATE 35 Medical 600 + D Branch ORAL) CALCIUM 2019-0 Yes Take by [facility] CARBONATE/V 7-11 mouth. ity of ITAMIN D3 16:07: [place] (CALTRATE 35 Medical 600 + D Branch ORAL) CALCIUM 2019-0 Yes Take by [facility] CARBONATE/V 7-11 mouth. ity of ITAMIN D3 16:07: [place] (CALTRATE 35 Medical 600 + D Branch ORAL) CALCIUM 2019-0 Yes Take by [facility] CARBONATE/V 7-11 mouth. ity of ITAMIN D3 16:07: [place] (CALTRATE 35 Medical 600 + D Branch ORAL) CALCIUM 2019-0 Yes Take by [facility] CARBONATE/V 7-11 mouth. ity of ITAMIN D3 16:07: [place] (CALTRATE 35 Medical 600 + D Branch ORAL) CALCIUM 2019-0 Yes Take by [facility] CARBONATE/V 7-11 mouth. ity of ITAMIN D3 16:07: [place] (CALTRATE 35 Medical 600 + D Branch ORAL) CALCIUM 2019-0 Yes Take by [facility] CARBONATE/V 7-11 mouth. ity of ITAMIN D3 16:07: [place] (CALTRATE 35 Medical 600 + D Branch ORAL) CALCIUM 2019-0 Yes Take by [facility] CARBONATE/V 7-11 mouth. ity of ITAMIN D3 16:07: [place] (CALTRATE 35 Medical 600 + D Branch ORAL) brimonidine 2019-0 Yes 1[drp] Place 1 U nivers tartrate 7-11 Drop in ity of (ALPHAGAN P 11:31: each eye 3 [place] OPHTHALMIC) 49 (three) Medic al times Branch daily as needed (eye dryness). brimonidine 2019-0 Yes 1[drp] Place 1 U nivers tartrate 7-11 Drop in ity of (ALPHAGAN P 11:31: each eye 3 [place] OPHTHALMIC) 49 (three) Medic al times Branch [...] of (ALPHAGAN P 11:31: each eye 3 [place] OPHTHALMIC) 49 (three) Medic al times Branch daily as needed (eye dryness). brimonidine 2019- Yes 1[drp] Place 1 U nivers tartrate 7-11 Drop in ity of (ALPHAGAN P 11:31: each eye 3 [place] OPHTHALMIC) 49 (three) Medic al times Branch daily as needed (eye dryness). CALCIUM 2019-0 Yes Take by [facility] CARBONATE/V 7-11 mouth. ity of ITAMIN D3 11:07: [place] (CALTRATE 35 Medical 600 + D Branch ORAL) CALCIUM [id number] Yes Take by [facility] CARBONATE/V 7-11 mouth. ity of ITAMIN D3 11:07: [place] (CALTRATE 35 Medical 600 + D Branch ORAL) CALCIUM 0 Yes Take by [facility] CARBONATE/V 7-11 mouth. ity of ITAMIN D3 11:07: [place] (CALTRATE 35 Medical 600 + D Branch ORAL) CALCIUM 0 Yes Take by [facility] CARBONATE/V 7-11 mouth. ity of ITAMIN D3 11:07: [place] (CALTRATE 35 Medical 600 + D Branch ORAL) CALCIUM Yes Take by [facility] CARBONATE/V 7-11 mouth. ity of ITAMIN D3 11:07: [place] (CALTRATE 35 Medical 600 + D Branch ORAL) vit 2019-0 Yes [id number] 1{capsu Take 1 U nivers C,E-Zn-mercedes 7-11 [id number] le} capsule by ity of r-lutein-ze 00:00: mouth 2 [place] 00 (two) Medical (PRESERVISI times Branch ON AREDS-2) daily. 250-200-40- 1 mg-unit-mg- mg Cap vit 2019-0 Yes [id number] 1{capsu Take 1 U nivers C,E-Zn-mercedes 7-11 [id number] le} capsule by ity of r-lutein-ze 00:00: mouth 2 [place] 00 (two) Medical (PRESERVISI times Branch ON AREDS-2) daily. 250-200-40- 1 mg-unit-mg- mg Cap vit 2019-0 Yes [id number] 1{capsu Take 1 U nivers C,E-Zn-mercedes 7-11 [id number] le} capsule by ity of r-lutein-ze 00:00: mouth 2 [place] 00 (two) Medical (PRESERVISI times Branch ON AREDS-2) daily. 250-200-40- 1 mg-unit-mg- mg Cap vit 2019-0 Yes [id number] 1{capsu Take 1 U nivers C,E-Zn-mercedes 7-11 [id number] le} capsule by ity of r-lutein-ze 00:00: mouth 2 [place] 00 (two) Medical (PRESERVISI times Branch ON AREDS-2) daily. 250-200-40- 1 mg-unit-mg- mg Cap vit 2019-0 Yes [id number] 1{capsu Take 1 U nivers C,E-Zn-mercedes 7-11 [id number] le} capsule by ity of r-lutein-ze 00:00: mouth 2 [place] 00 (two) Medical (PRESERVISI times Branch ON AREDS-2) daily. 250-200-40- 1 mg-unit-mg- mg Cap vit 2018-0 Yes [id number] 1{capsu Take 1 U nivers C,E-Zn-mercedes 7-11 [id number] le} capsule by ity of r-lutein-ze 00:00: mouth 2 [place] 00 (two) Medical (PRESERVISI times Branch ON AREDS-2) daily. 250-200-40- 1 mg-unit-mg- mg Cap vit 2018-0 Yes [id number] 1{capsu Take 1 U nivers C,E-Zn-mercedes 7-11 [id number] le} capsule by ity of r-lutein-ze 00:00: mouth 2 [place] 00 (two) Medical (PRESERVISI times Branch ON AREDS-2) daily. 250-200-40- 1 mg-unit-mg- mg Cap vit 2018-0 Yes [id number] 1{capsu Take 1 U nivers C,E-Zn-mercedes 7-11 [id number] le} capsule by ity of r-lutein-ze 00:00: mouth 2 [place] 00 (two) Medical (PRESERVISI times Branch ON AREDS-2) daily. 250-200-40- 1 mg-unit-mg- mg Cap vit 2019-0 Yes [id number] 1{capsu Take 1 U nivers C,E-Zn-mercedes 7-11 [id number] le} capsule by ity of r-lutein-ze 00:00: mouth 2 [place] 00 (two) Medical (PRESERVISI times Branch ON AREDS-2) daily. 250-200-40- 1 mg-unit-mg- mg Cap vit 2019-0 Yes [id number] 1{capsu Take 1 U nivers C,E-Zn-mercedes 7-11 [id number] le} capsule by ity of r-lutein-ze 00:00: mouth 2 [place] 00 (two) Medical (PRESERVISI times Branch ON AREDS-2) daily. 250-200-40- 1 mg-unit-mg- mg Cap vit 2019-0 Yes [id number] 1{capsu Take 1 U nivers C,E-Zn-mercedes 7-11 [id number] le} capsule by ity of r-lutein-ze 00:00: mouth 2 [place] 00 (two) Medical (PRESERVISI times Branch ON AREDS-2) daily. 250-200-40- 1 mg-unit-mg- mg Cap vit 2019-0 Yes [id number] 1{capsu Take 1 U nivers C,E-Zn-mercedes 7-11 [id number] le} capsule by ity of r-lutein-ze 00:00: mouth 2 [place] 00 (two) Medical (PRESERVISI times Branch ON AREDS-2) daily. 250-200-40- 1 mg-unit-mg- mg Cap vit 2019-0 Yes [id number] 1{capsu Take 1 U nivers C,E-Zn-mercedes 7-11 [id number] le} capsule by ity of r-lutein-ze 00:00: mouth 2 [place] 00 (two) Medical (PRESERVISI times Branch ON AREDS-2) daily. 250-200-40- 1 mg-unit-mg- mg Cap vit 2019-0 Yes [id number] 1{capsu Take 1 U nivers C,E-Zn-mercedes 7-11 [id number] le} capsule by ity of r-lutein-ze 00:00: mouth 2 [place] 00 (two) Medical (PRESERVISI times Branch ON AREDS-2) daily. 250-200-40- 1 mg-unit-mg- mg Cap vit 2019-0 Yes [id number] 1{capsu Take 1 U nivers C,E-Zn-mercedes 7-11 [id number] le} capsule by ity of r-lutein-ze 00:00: mouth 2 [place] 00 (two) Medical (PRESERVISI times Branch ON AREDS-2) daily. 250-200-40- 1 mg-unit-mg- mg Cap vit 2019-0 Yes [id number] 1{capsu Take 1 U nivers C,E-Zn-mercedes 7-11 [id number] le} capsule by ity of r-lutein-ze 00:00: mouth 2 [place] 00 (two) Medical (PRESERVISI times Branch ON AREDS-2) daily. 250-200-40- 1 mg-unit-mg- mg Cap vit 2019-0 Yes [id number] 1{capsu Take 1 U nivers C,E-Zn-mercedes 7-11 [id number] le} capsule by ity of r-lutein-ze 00:00: mouth 2 [place] 00 (two) Medical (PRESERVISI times Branch ON AREDS-2) daily. 250-200-40- 1 mg-unit-mg- mg Cap vit 2019-0 Yes [id number] 1{capsu Take 1 U nivers C,E-Zn-mercedes 7-11 [id number] le} capsule by ity of r-lutein-ze 00:00: mouth 2 [place] 00 (two) Medical (PRESERVISI times Branch ON AREDS-2) daily. 250-200-40- 1 mg-unit-mg- mg Cap vit 2019-0 Yes [id number] 1{capsu Take 1 U nivers C,E-Zn-mercedes 7-11 [id number] le} capsule by ity of r-lutein-ze 00:00: mouth 2 [place] 00 (two) Medical (PRESERVISI times Branch ON AREDS-2) daily. 250-200-40- 1 mg-unit-mg- mg Cap vit 2019-0 Yes [id number] 1{capsu Take 1 U nivers C,E-Zn-mercedes 7-11 [id number] le} capsule by ity of r-lutein-ze 00:00: mouth 2 [place] 00 (two) Medical (PRESERVISI times Branch ON AREDS-2) daily. 250-200-40- 1 mg-unit-mg- mg Cap vit 2019-0 Yes [id number] 1{capsu Take 1 U Anna Cheema-Zn-mercedes 04-23 [id number] le} capsule by flori [facility] 00:00: mouth 2 [place] 00 (two) Medical (PRESERVISI times Branch ON AREDS-2) daily. 250-200-40- 1 mg-unit-mg- mg Cap LIDOCAINE LIDOCAINE 2019-0 No 10mg Com mon HCL 10MG/ML HCL 10MG/ML 6-13 S pirit 00:00: - [facility] Euflexxa Euflexxa 2019-0 No 2mL Commo n 6-13 Spirit 00:00: - [facility] LIDOCAINE LIDOCAINE 2019-0 No 10mg Com mon HCL 10MG/ML HCL 10MG/ML 6-13 S pirit 00:00: - [facility] Euflexxa Euflexxa 2019-0 No 2mL Commo n 6-13 Spirit 00:00: - [facility] LIDOCAINE LIDOCAINE 2019-0 No 10mg Com mon HCL 10MG/ML HCL 10MG/ML 6-13 S pirit 00:00: - [facility] Euflexxa Euflexxa 2019-0 No 2mL Commo n 6-13 Spirit 00:00: - [facility] LIDOCAINE LIDOCAINE 2019-0 No 10mg Com mon HCL 10MG/ML HCL 10MG/ML 6-13 S pirit 00:00: - [facility] Euflexxa Euflexxa 2019-0 No 2mL Commo n 6-13 Spirit 00:00: - [facility] LIDOCAINE LIDOCAINE 2019-0 No 10mg Com mon HCL 10MG/ML HCL 10MG/ML 6-13 S pirit 00:00: - [facility] Euflexxa Euflexxa 2019-0 No 2mL Commo n 6-13 Spirit 00:00: - [facility] LIDOCAINE LIDOCAINE 2019-0 No 10mg Com mon HCL 10MG/ML HCL 10MG/ML 6-13 S pirit 00:00: - [facility] Euflexxa Euflexxa 2019-0 No 2mL Commo n 6-13 Spirit 00:00: - [facility] LIDOCAINE LIDOCAINE 2019-0 No 10mg Com mon HCL 10MG/ML HCL 10MG/ML 6-13 S pirit 00:00: - [facility] Euflexxa Euflexxa 2019-0 No 2mL Commo n 6-13 Spirit 00:00: - [facility] LIDOCAINE LIDOCAINE 2019-0 No 10mg Com mon HCL 10MG/ML HCL 10MG/ML 6-13 S pirit 00:00: - [facility] Euflexxa Euflexxa 2019-0 No 2mL Commo n 6-13 Spirit 00:00: - [facility] LIDOCAINE LIDOCAINE 2019-0 No 10mg Com mon HCL 10MG/ML HCL 10MG/ML 6-13 S pirit 00:00: - [facility] Euflexxa Euflexxa 2019-0 No 2mL Commo n 6-13 Spirit 00:00: - [facility] LIDOCAINE LIDOCAINE 2019-0 No 10mg Com mon HCL 10MG/ML HCL 10MG/ML 6-13 S pirit 00:00: - [facility] Euflexxa Euflexxa 2019-0 No 2mL Commo n 6-13 Spirit 00:00: - [facility] LIDOCAINE LIDOCAINE 2019-0 No 10mg Com mon HCL 10MG/ML HCL 10MG/ML 6-13 S pirit 00:00: - [facility] Euflexxa Euflexxa 2019-0 No 2mL Commo n 6-13 Spirit 00:00: - [facility] Euflexxa Euflexxa 2019-0 No 2mg Commo n 6-06 Spirit 00:00: - [facility] LIDOCAINE LIDOCAINE 2019-0 No 10mg Com mon HCL 10MG/ML HCL 10MG/ML 6-06 S pirit 00:00: - [facility] Euflexxa Euflexxa 2019-0 No 2mg Commo n 6-06 Spirit 00:00: - [facility] LIDOCAINE LIDOCAINE 2019-0 No 10mg Com mon HCL 10MG/ML HCL 10MG/ML 6-06 S pirit 00:00: - [facility] Euflexxa Euflexxa 2019-0 No 2mg Commo n 6- Spirit 00:00: - [facility] LIDOCAINE LIDOCAINE 2019-0 No 10mg Com mon HCL 10MG/ML HCL 10MG/ML 6-06 S pirit 00:00: - [facility] Euflexxa Euflexxa 2019-0 No 2mg Commo n 03-19 Spirit 00:00: - [facility] LIDOCAINE LIDOCAINE 2019-0 No 10mg Com mon HCL 10MG/ML HCL 10MG/ML 6-06 S pirit 00:00: - [facility] Euflexxa Euflexxa 2019-0 No 2mg Commo n 03-19 Spirit 00:00: - [facility] LIDOCAINE LIDOCAINE 2019-0 No 10mg Com mon HCL 10MG/ML HCL 10MG/ML 6-06 S pirit 00:00: - [facility] Euflexxa Euflexxa 2019-0 No 2mg Commo n 03-19 Spirit 00:00: - [facility] LIDOCAINE LIDOCAINE 2019-0 No 10mg Com mon HCL 10MG/ML HCL 10MG/ML 6-06 S pirit 00:00: - [facility] Euflexxa Euflexxa 2019-0 No 2mg Commo n 03-19 Spirit 00:00: - [facility] LIDOCAINE LIDOCAINE 2019-0 No 10mg Com mon HCL 10MG/ML HCL 10MG/ML 6-06 S pirit 00:00: - [facility] Euflexxa Euflexxa 2019-0 No 2mg Commo n 03-19 Spirit 00:00: - [facility] LIDOCAINE LIDOCAINE 2019-0 No 10mg Com mon HCL 10MG/ML HCL 10MG/ML 6-06 S pirit 00:00: - [facility] Euflexxa Euflexxa 2019-0 No 2mg Commo n 03-19 Spirit 00:00: - [facility] LIDOCAINE LIDOCAINE 2019-0 No 10mg Com mon HCL 10MG/ML HCL 10MG/ML 6-06 S pirit 00:00: - [facility] Euflexxa Euflexxa 2019-0 No 2mg Commo n 6-06 Spirit 00:00: - [facility] LIDOCAINE LIDOCAINE 2019-0 No 10mg Com mon HCL 10MG/ML HCL 10MG/ML 6-06 S pirit 00:00: - [facility] Euflexxa Euflexxa 2019-0 No 2mg Commo n 6-06 Spirit 00:00: - [facility] LIDOCAINE LIDOCAINE 2019-0 No 10mg Com mon HCL 10MG/ML HCL 10MG/ML 6-06 S pirit 00:00: - [facility] LIDOCAINE LIDOCAINE 2019-0 No 10mg Com mon HCL 10MG/ML HCL 10MG/ML 5-30 S pirit 00:00: - [facility] Euflexxa Euflexxa 2019-0 No 20mg Commo n 5-30 Spirit 00:00: - [facility] LIDOCAINE LIDOCAINE 2019-0 No 10mg Com mon HCL 10MG/ML HCL 10MG/ML 5-30 S pirit 00:00: - [facility] Euflexxa Euflexxa 2019-0 No 20mg Commo n 5-30 Spirit 00:00: - [facility] LIDOCAINE LIDOCAINE 2019-0 No 10mg Com mon HCL 10MG/ML HCL 10MG/ML 5-30 S pirit 00:00: - [facility] Euflexxa Euflexxa 2019-0 No 20mg Commo n 5-30 Spirit 00:00: - [facility] LIDOCAINE LIDOCAINE 2019-0 No 10mg Com mon HCL 10MG/ML HCL 10MG/ML 5-30 S pirit 00:00: - [facility] Euflexxa Euflexxa 2019-0 No 20mg Commo n 5-30 Spirit 00:00: - [facility] LIDOCAINE LIDOCAINE 2019-0 No 10mg Com mon HCL 10MG/ML HCL 10MG/ML 5-30 S pirit 00:00: - [facility] Euflexxa Euflexxa 2019-0 No 20mg Commo n 5-30 Spirit 00:00: - [facility] LIDOCAINE LIDOCAINE 2019-0 No 10mg Com mon HCL 10MG/ML HCL 10MG/ML 5-30 S pirit 00:00: - [facility] Euflexxa Euflexxa 2019-0 No 20mg Commo n 5-30 Spirit 00:00: - [facility] LIDOCAINE LIDOCAINE 2019-0 No 10mg Com mon HCL 10MG/ML HCL 10MG/ML 5-30 S pirit 00:00: - [facility] Euflexxa Euflexxa 2019-0 No 20mg Commo n 5-30 Spirit 00:00: - [facility] LIDOCAINE LIDOCAINE 2019-0 No 10mg Com mon HCL 10MG/ML HCL 10MG/ML 5-30 S pirit 00:00: - [facility] Euflexxa Euflexxa 2019-0 No 20mg Commo n 5-30 Spirit 00:00: - [facility] LIDOCAINE LIDOCAINE 2019-0 No 10mg Com mon HCL 10MG/ML HCL 10MG/ML 5-30 S pirit 00:00: - [facility] Euflexxa Euflexxa 2019-0 No 20mg Commo n 5-30 Spirit 00:00: - [facility] LIDOCAINE LIDOCAINE 2019-0 No 10mg Com mon HCL 10MG/ML HCL 10MG/ML 5-30 S pirit 00:00: - [facility] Euflexxa Euflexxa 2019-0 No 20mg Commo n 5-30 Spirit 00:00: - [facility] LIDOCAINE LIDOCAINE 2019-0 No 10mg Com mon HCL 10MG/ML HCL 10MG/ML 5-30 S pirit 00:00: - [facility] Euflexxa Euflexxa 2019-0 No 20mg Commo n 5-30 Spirit 00:00: - [facility] metOLazone 2019-0 Yes [id number] 5mg Take 1 Un mega 5 mg tablet 2-20 tablet by ity of 00:00: mouth [place] 00 weekly. Medical Take 30 Branch minutes before furosemide . furosemide 2019-0 Yes [id number] 80mg Take 2 Un mega (LASIX) 40 2-20 tablets by ity of mg tablet 00:00: mouth [place] 00 every Medical morning Branch and evening. Keep on file. atorvastati 2019-0 Yes [id number] 40mg Take 1 [facility] n 40 mg 2-20 tablet by ity of tablet 00:00: mouth at [place] 00 bedtime. Medical Keep on Branch file. furosemide 2019-0 Yes [id number] 80mg Take 2 Un mega (LASIX) 40 2-20 tablets by ity of mg tablet 00:00: mouth [place] 00 every Medical morning Branch and evening. Keep on file. atorvastati 2019-0 Yes [id number] 40mg Take 1 [facility] n 40 mg 2-20 tablet by ity of tablet 00:00: mouth at [place] 00 bedtime. Medical Keep on Branch file. furosemide 2019-0 Yes [id number] 80mg Take 2 Un mega (LASIX) 40 2-20 tablets by ity of mg tablet 00:00: mouth [place] 00 every Medical morning Branch and evening. Keep on file. atorvastati Yes [id number] 40mg Take 1 Univers n 40 mg 2-20 tablet by ity of tablet 00:00: mouth at [place] 00 bedtime. Medical Keep on Branch file. furosemide 2018-0 Yes [id number] 80mg Take 2 Un mega (LASIX) 40 2-20 tablets by ity of mg tablet 00:00: mouth [place] 00 every Medical morning Branch and evening. Keep on file. atorvastati Yes [id number] 40mg Take 1 Univers n 40 mg 2-20 tablet by ity of tablet 00:00: mouth at [place] 00 bedtime. Medical Keep on Branch file. furosemide 2018-0 Yes [id number] 80mg Take 2 Un mega (LASIX) 40 2-20 tablets by ity of mg tablet 00:00: mouth [place] 00 every Medical morning Branch and evening. Keep on file. atorvastati 2019-0 Yes [id number] 40mg Take 1 [facility] n 40 mg 2-20 tablet by ity of tablet 00:00: mouth at [place] 00 bedtime. Medical Keep on Branch file. furosemide 2019-0 Yes [id number] 80mg Take 2 Un mega (LASIX) 40 2-20 tablets by ity of mg tablet 00:00: mouth [place] 00 every Medical morning Branch and evening. Keep on file. atorvastati 2018-0 Yes [id number] 40mg Take 1 [facility] n 40 mg 2-20 tablet by ity of tablet 00:00: mouth at [place] 00 bedtime. Medical Keep on Branch file. furosemide 2019-0 Yes [id number] 80mg Take 2 Un mega (LASIX) 40 2-20 tablets by ity of mg tablet 00:00: mouth [place] 00 every Medical morning Branch and evening. Keep on file. atorvastati 2019-0 Yes [id number] 40mg Take 1 [facility] n 40 mg 2-20 tablet by ity of tablet 00:00: mouth at [place] 00 bedtime. Medical Keep on Branch file. furosemide 2018-0 Yes [id number] 80mg Take 2 Un mega (LASIX) 40 2-20 tablets by ity of mg tablet 00:00: mouth [place] 00 every Medical morning Branch and evening. Keep on file. atorvastati Yes [id number] 40mg Take 1 [facility] n 40 mg 2-20 tablet by ity of tablet 00:00: mouth at [place] 00 bedtime. Medical Keep on Branch file. furosemide 0 Yes [id number] 80mg Take 2 Un mega (LASIX) 40 2-20 tablets by ity of mg tablet 00:00: mouth [place] 00 every Medical morning Branch and evening. Keep on file. atorvastati Yes [id number] 40mg Take 1 [facility] n 40 mg 2-20 tablet by ity of tablet 00:00: mouth at [place] 00 bedtime. Medical Keep on Branch file. furosemide 2018-0 Yes [id number] 80mg Take 2 Un mega (LASIX) 40 2-20 tablets by ity of mg tablet 00:00: mouth [place] 00 every Medical morning Branch and evening. Keep on file. atorvastati 2018- Yes [id number] 40mg Take 1 Univers n 40 mg 2-20 tablet by ity of tablet 00:00: mouth at [place] 00 bedtime. Medical Keep on Branch file. metOLazone 2018-0 Yes [id number] 5mg Take 1 Un mega 5 mg tablet 2-20 tablet by ity of 00:00: mouth [place] 00 weekly. Medical Take 30 Branch minutes before furosemide . furosemide 2018-0 Yes [id number] 80mg Take 2 Un mega (LASIX) 40 2-20 tablets by ity of mg tablet 00:00: mouth [place] 00 every Medical morning Branch and evening. Keep on file. atorvastati 2018- Yes [id number] 40mg Take 1 [facility] n 40 mg 2-20 tablet by ity of tablet 00:00: mouth at [place] 00 bedtime. Medical Keep on Branch file. furosemide 0 Yes [id number] 80mg Take 2 Un mega (LASIX) 40 2-20 tablets by ity of mg tablet 00:00: mouth [place] 00 every Medical morning Branch and evening. Keep on file. atorvastati Yes [id number] 40mg Take 1 [facility] n 40 mg 2-20 tablet by ity of tablet 00:00: mouth at [place] 00 bedtime. Medical Keep on Branch file. furosemide Yes [id number] 80mg Take 2 Un mega (LASIX) 40 2-20 tablets by ity of mg tablet 00:00: mouth [place] 00 every Medical morning Branch and evening. Keep on file. atorvastati Yes [id number] 40mg Take 1 Univers n 40 mg 2-20 tablet by ity of tablet 00:00: mouth at [place] 00 bedtime. Medical Keep on Branch file. metOLazone Yes [id number] 5mg Take 1 Un mega 5 mg tablet 2-20 tablet by ity of 00:00: mouth [place] 00 weekly. Medical Take 30 Branch minutes before furosemide . furosemide Yes [id number] 80mg Take 2 Un mega (LASIX) 40 2-20 tablets by ity of mg tablet 00:00: mouth [place] 00 every Medical morning Branch and evening. Keep on file. atorvastati Yes [id number] 40mg Take 1 Univers n 40 mg 2-20 tablet by ity of tablet 00:00: mouth at [place] 00 bedtime. Medical Keep on Branch file. furosemide 0 Yes [id number] 80mg Take 2 Un mega (LASIX) 40 2-20 tablets by ity of mg tablet 00:00: mouth [place] 00 every Medical morning Branch and evening. Keep on file. atorvastati Yes [id number] 40mg Take 1 [facility] n 40 mg 2-20 tablet by ity of tablet 00:00: mouth at [place] 00 bedtime. Medical Keep on Branch file. furosemide 0 Yes [id number] 80mg Take 2 Un mega (LASIX) 40 2-20 tablets by ity of mg tablet 00:00: mouth [place] 00 every Medical morning Branch and evening. Keep on file. atorvastati 2018- Yes [id number] 40mg Take 1 [facility] n 40 mg 2-20 tablet by ity of tablet 00:00: mouth at [place] 00 bedtime. Medical Keep on Branch file. furosemide Yes [id number] 80mg Take 2 Un mega (LASIX) 40 2-20 tablets by ity of mg tablet 00:00: mouth [place] 00 every Medical morning Branch and evening. Keep on file. atorvastati Yes [id number] 40mg Take 1 [facility] n 40 mg 2-20 tablet by ity of tablet 00:00: mouth at [place] 00 bedtime. Medical Keep on Branch file. furosemide Yes [id number] 80mg Take 2 Un mega (LASIX) 40 2-20 tablets by ity of mg tablet 00:00: mouth [place] 00 every Medical morning Branch and evening. Keep on file. atorvastati Yes [id number] 40mg Take 1 [facility] n 40 mg 2-20 tablet by ity of tablet 00:00: mouth at [place] 00 bedtime. Medical Keep on Branch file. furosemide Yes [id number] 80mg Take 2 Un mega (LASIX) 40 2-20 tablets by ity of mg tablet 00:00: mouth [place] 00 every Medical morning Branch and evening. Keep on file. atorvastati Yes [id number] 40mg Take 1 [facility] n 40 mg 2-20 tablet by ity of tablet 00:00: mouth at [place] 00 bedtime. Medical Keep on Branch file. furosemide 0 Yes [id number] 80mg Take 2 Un mega (LASIX) 40 2-20 tablets by ity of mg tablet 00:00: mouth [place] 00 every Medical morning Branch and evening. Keep on file. furosemide Yes [id number] 80mg Take 2 Un mega (LASIX) 40 2-20 tablets by ity of mg tablet 00:00: mouth [place] 00 every Medical morning Branch and evening. Keep on file. atorvastati Yes [id number] 40mg Take 1 [facility] n 40 mg 2-20 tablet by ity of tablet 00:00: mouth at [place] 00 bedtime. Medical Keep on Branch file. atorvastati Yes [id number] 40mg Take 1 [facility] n 40 mg 2-20 tablet by ity of tablet 00:00: mouth at [place] 00 bedtime. Medical Keep on Branch file. metoprolol 2017-10 Yes [id number] 100mg Take 1 Univers tartrate 2-27 tablet by ity of 100 mg 00:00: mouth 2 [place] tablet 00 (two) Medical times Branch daily. metoprolol 2017-10 Yes [id number] 100mg Take 1 Univers tartrate 2-27 tablet by ity of 100 mg 00:00: mouth 2 [place] tablet 00 (two) Medical times Branch daily. metoprolol 2017-10 Yes [id number] 100mg Take 1 Univers tartrate 2-27 tablet by ity of 100 mg 00:00: mouth 2 [place] tablet 00 (two) Medical times Branch daily. metoprolol 2017-10 Yes [id number] 100mg Take 1 [facility] tartrate 2-27 tablet by ity of 100 mg 00:00: mouth 2 [place] tablet 00 (two) Medical times Branch daily. metoprolol 2017-10 Yes [id number] 100mg Take 1 [facility] tartrate 2-27 tablet by ity of 100 mg 00:00: mouth 2 [place] tablet 00 (two) Medical times Branch daily. metoprolol 2017-10 Yes [id number] 100mg Take 1 [facility] tartrate 2-27 tablet by ity of 100 mg 00:00: mouth 2 [place] tablet 00 (two) Medical times Branch daily. metoprolol 2017-10 Yes [id number] 100mg Take 1 [facility] tartrate 2-27 tablet by ity of 100 mg 00:00: mouth 2 [place] tablet 00 (two) Medical times Branch daily. metoprolol 2017-10 Yes [id number] 100mg Take 1 [facility] tartrate 2-27 tablet by ity of 100 mg 00:00: mouth 2 [place] tablet 00 (two) Medical times Branch daily. metoprolol 2017-10 Yes [id number] 100mg Take 1 [facility] tartrate 2-27 tablet by ity of 100 mg 00:00: mouth 2 [place] tablet 00 (two) Medical times Branch daily. metoprolol 2017-10 Yes [id number] 100mg Take 1 [facility] tartrate 2-27 tablet by ity of 100 mg 00:00: mouth 2 [place] tablet 00 (two) Medical times Branch daily. metoprolol 2017-10 2020- No [id number] 100mg Take 1 Univers tartrate 2-27 03-16 [...] MG 14:51: mouth Medical tablet 07 daily. [place] olmesartan- Yes 1{tbl} QD Take [address] hydrochloro 8-04 tablet by [place] thiazide 14:51: mouth Medical (BENICAR 07 daily. Center HCT) 40-25 mg per tablet rivaroxaban 0 Yes 20mg QD Take [address] [facility] (XARELTO) 8-04 by [facility] Tab 14:51: daily. Medica l tablet 07 [place] olmesartan- Yes 1{tbl} QD Take [address] hydrochloro 8-04 tablet by [place] thiazide 14:51: mouth Medical (BENICAR 07 daily. Center HCT) 40-25 mg per tablet rivaroxaban 2017-0 Yes 20mg QD Take [address] [facility] (XARELTO) 8-04 by [facility] 20 mg Tab 14:51: daily. Medica l tablet 07 [place] digoxin Yes 250ug QD Take [facility]OX[facility]04 [facility] 0.25 MG 14:51: mouth Medical tablet 07 daily. [place] olmesartan- Yes 1{tbl} QD Take [address] hydrochloro 8-04 tablet by [place] thiazide 14:51: mouth Medical (BENICAR 07 daily. [place] HCT) 40-25 mg per tablet rivaroxaban Yes 20mg QD Take [address] [facility] (XARELTO) 8-04 by mouth [facility] 20 mg Tab 14:51: daily. Medica l tablet 07 [place] digoxin Yes 250ug QD Take [facility]LANOXIN[facility] 8[facility] 0.25 MG 14:51: mouth Medical tablet 07 daily. [place] Alphagan P Alphagan P Yes Carlos not Common Diaz defined [facility] Xyzal Xyzal Yes Carlos not Common Diaz defined [facility] Atorvastati Atorvastati Yes Acrlos not Common n Calcium n Calcium Diaz defined [facility] Olmesartan Olmesartan Yes Carlos not Common Medoxomil Medoxomil Diaz defined [facility] potassium potassium Yes Carlos not Co mmon Diaz defined [facility] Metolazone Metolazone Yes Carlos not Common Diaz defined [facility] PreserVisio PreserVisio Yes Carlos not Common n/Lutein n/Lutein Diaz defined [facility] tylenol tylenol Yes Carlos not Common Diaz defined [facility] Furosemide Furosemide Yes Carlos not Common Diaz defined [facility] Caltrate Caltrate Yes Carlos not Comm on 600+D 600+D Diaz defined [facility] Xarelto Xarelto Yes Carlos not Common Diaz defined [facility] Cranberry Cranberry Yes Carlos not Co mmon Diaz defined [facility] Duloxetine Duloxetine Yes Carlos not Common HCl HCl Diaz defined [facility] Diltiazem Diltiazem Yes Carlos TAKE 1 Common HCl ER HCl ER Diaz CAPSULE BY Spiri t MOUTH - CHI TWICE A [facility] dilTIAZem dilTIAZem No dilTIAZem HCl ER 60 [...] Immunizations Ordered Filled Immunization Date Status Comments [facility] e Immunization Name Name SARS-COV-2 COVID-19 2022-03-05 Completed Unive rsity of MODERNA 0.25ML 00:00:00 [place] [facility]atherine BOOSTER VACCINE Branch SARS-COV-2 COVID-19 2022-03-05 Completed Unive rsity of MODERNA 0.25ML 00:00:00 [place] [facility]atherine BOOSTER VACCINE Branch SARS-COV-2 COVID-19 2022-03-05 Completed Unive rsity of MODERNA 0.25ML 00:00:00 [place] [facility]atherine BOOSTER VACCINE Branch SARS-COV-2 COVID-19 2021-10-04 Completed Unive rsity of MODERNA BOOSTER 00:00:00 [place] [facility] ical VACCINE Branch SARS-COV-2 COVID-19 2021-10-04 Completed Unive rsity of MODERNA 0.25ML 00:00:00 [place] [facility] catherine BOOSTER VACCINE Branch SARS-COV-2 COVID-19 2021-10-04 Completed Unive rsity of MODERNA 0.25ML 00:00:00 [place] [facility]i catherine BOOSTER VACCINE Branch SARS-COV-2 COVID-19 2021-10-04 Completed Unive rsity of MODERNA 0.25ML 00:00:00 [place] [facility] catherine BOOSTER VACCINE Branch Hyalgan 20 mg Hyalgan 20 mg 2021-04-27 Completed [facility] - 13:[facility]00 [facility] Hyalgan 20 mg Hyalgan 20 mg 2021-04-20 Completed [facility] 14:[facility]00 [facility] Bupivicaine [place] Bupivicaine [place] 2021-04-12 [facility]00 [facility] Kenalog Kenalog 2021-04-12 Completed [facility] - (Triamcinolone) (Triamcinolone) 09:19:00 [facility] Hyalgan 20 mg Hyalgan 20 mg 2021-04-12 Completed [facility] 09[facility]18[facility]00 [facility] SARS-COV-2 COVID-19 2020-11-14 Completed Unive rsity of MODERNA VACCINE 00:00:00 [facility] ical Branch SARS-COV-2 COVID-19 2020-11-14 Completed Unive rsity of MODERNA VACCINE 00:00:00 [facility] ical Branch SARS-COV-2 COVID-19 2020-11-14 Completed Unive rsity of MODERNA VACCINE 00:00:00 [facility] ical Branch SARS-COV-2 COVID-19 2020-11-14 Completed Unive rsity of MODERNA VACCINE 00:00:00 [facility] ical Branch SARS-COV-2 COVID-19 2020-11-14 Completed Unive rsity of MODERNA 12+ YRS 00:00:00 [facility] ical VACCINE Branch SARS-COV-2 COVID-19 2020-10-17 Completed Unive rsity of MODERNA VACCINE 00:00:00 [facility] ical Branch SARS-COV-2 COVID-19 2020-10-17 Completed Unive rsity of MODERNA VACCINE 00:00:00 [facility] SARS-COV-2 COVID-19 2020-10-17 Completed Unive rsity of MODERNA VACCINE 00:00:00 [facility] SARS-COV-2 COVID-19 2020-10-17 Completed Unive rsity of MODERNA VACCINE 00:00:00 [facility] ical Branch SARS-COV-2 COVID-19 2020-10-17 Completed Unive rsity of MODERNA 12+ YRS 00:00:00 [facility] ical VACCINE Branch Kenalog Kenalog 2020-05-24 Completed [facility] (Triamcinolone[facility] (Triamcinolone) 11:26:00 [facility] Bupivicaine [place] Bupivicaine [place] 2020-05-24 Completed [facility]:00 [facility] Gel-One Gel-One 2020-05-24 Completed [facility] 11:[facility]00 [facility] PPD (TB) 2019-05-12 Completed University of 00:00:00 [facility] Pneumococcal 2019-05-12 Completed University o f Polysaccharide, 00:00:00 [facility] ical PPSV23 (PNEUMOVAX) Branch PPD (TB) 2019-05-12 Completed University of 00:00:00 [facility] Pneumococcal 2019-05-12 Completed University o f Polysaccharide, 00:00:00 [facility] ical PPSV23 (PNEUMOVAX) Branch PPD (TB) 2019-05-12 Completed University of 00:00:00 [facility] Pneumococcal 2019-05-12 Completed University o f Polysaccharide, 00:00:00 [facility] ical PPSV23 (PNEUMOVAX) Branch PPD (TB) 2019-05-12 Completed University of 00:00:00 [facility] Pneumococcal 2019-05-12 Completed University o f Polysaccharide, 00:00:00 [facility] ical PPSV23 (PNEUMOVAX) Branch PPD (TB) 2019-05-12 Completed University of 00:00:00 [facility] Pneumococcal 2019-05-12 Completed University o f Polysaccharide, 00:00:00 [facility] ical PPSV23 (PNEUMOVAX) Branch PPD (TB) 2019-05-12 Completed University of 00:00:00 [facility] Pneumococcal 2019-05-12 Completed University o f Polysaccharide, 00:00:00 [facility] ical PPSV23 (PNEUMOVAX) Branch PPD (TB) 2019-05-12 Completed University of 00:00:00 [facility] Pneumococcal 2019-05-12 Completed University o f Polysaccharide, 00:00:00 [place] [facility] ical PPSV23 (PNEUMOVAX) Branch PPD (TB) 2019-05-12 Completed University of 00:00:00 [facility] Pneumococcal 2019-05-12 Completed University o f Polysaccharide, 00:00:00 [place] [facility] ical PPSV23 (PNEUMOVAX) Branch PPD (TB) 2019-05-12 Completed University of 00:00:00 [facility] Pneumococcal 2019-05-12 Completed University o f Polysaccharide, 00:00:00 [place] [facility] ical PPSV23 (PNEUMOVAX) Branch PPD (TB) 2019-05-12 Completed University of 00:00:00 [facility] Pneumococcal 2019-05-12 Completed University o f Polysaccharide, 00:00:00 [place] [facility] ical PPSV23 (PNEUMOVAX) Branch PPD (TB) 2019-05-12 Completed University of 00:00:00 [facility] Pneumococcal 2019-05-12 Completed University o f Polysaccharide, 00:00:00 [place] [facility] ical PPSV23 (PNEUMOVAX) Branch PPD (TB) 2019-05-12 Completed University of 00:00:00 [facility] Pneumococcal 2019-05-12 Completed University o f Polysaccharide, 00:00:00 [place] [facility] ical PPSV23 (PNEUMOVAX) Branch PPD (TB) 2019-05-12 Completed University of 00:00:00 [facility] Pneumococcal 2019-05-12 Completed University o f Polysaccharide, 00:00:00 [place] [facility] ical PPSV23 (PNEUMOVAX) Branch PPD (TB) 2019-05-12 Completed University of 00:00:00 [facility] Pneumococcal 2019-05-12 Completed University o f Polysaccharide, 00:00:00 [place] [facility] ical PPSV23 (PNEUMOVAX) Branch PPD (TB) 2019-05-12 Completed University of 00:00:00 [facility] Pneumococcal 2019-05-12 Completed University o f Polysaccharide, 00:00:00 [place] [facility] ical PPSV23 (PNEUMOVAX) Branch PPD (TB) 2019-05-12 Completed University of 00:00:00 [facility] Pneumococcal 2019-05-12 Completed University o f Polysaccharide, 00:00:00 [place] [facility] ical PPSV23 (PNEUMOVAX) Branch PPD (TB) 2019-05-12 Completed University of 00:00:00 [facility] Pneumococcal 2019-05-12 Completed University o f Polysaccharide, 00:00:00 [place] [facility] ical PPSV23 (PNEUMOVAX) Branch PPD (TB) 2019-05-12 Completed University of 00:00:00 [facility] Pneumococcal 2019-05-12 Completed University o f Polysaccharide, 00:00:00 [place] [facility] ical PPSV23 (PNEUMOVAX) Branch PPD (TB) 2019-05-12 Completed University of 00:00:00 [facility] Pneumococcal 2019-05-12 Completed University o f Polysaccharide, 00:00:00 [place] [facility] ical PPSV23 (PNEUMOVAX) Branch PPD (TB) 2019-05-12 Completed University of 00:00:00 [facility] Pneumococcal 2019-05-12 Completed University o f Polysaccharide, 00:00:00 [place] [facility] ical PPSV23 (PNEUMOVAX) Branch PPD (TB) 2019-05-12 Completed University of 00:00:00 [facility] Pneumococcal 2019-05-12 Completed University o f Polysaccharide, 00:00:00 [facility] ical PPSV23 (PNEUMOVAX) Branch LIDOCAINE HCL LIDOCAINE HCL 2019-03-26 Completed [facility] - 10MG/ML 10MG/ML 08:34:00 [facility] Euflexxa Euflexxa 2019-03-26 Completed [facility]00 [facility] LIDOCAINE HCL LIDOCAINE HCL 2019-03-19 Completed [facility] - 10MG/ML 10MG/ML 14:16:00 [facility] Euflexxa Euflexxa 2019-03-19 Completed [facility] 14[facility]00 [facility] LIDOCAINE HCL LIDOCAINE HCL 2019-03-12 Completed [facility] - 10MG/ML 10MG/ML 15:13:00 [facility] Euflexxa Euflexxa 2019-03-12 Completed [facility] 15:12:00 [facility] Influenza Virus 2018-07-14 Completed Universit y of Vaccine 00:00:00 [facility] Influenza Virus 2018-07-14 Completed Universit y of Vaccine 00:00:00 [facility] Influenza Virus 2018-07-14 Completed Universit y of Vaccine 00:00:00 [facility] Influenza Virus 2018-07-14 Completed Universit y of Vaccine 00:00:00 [facility] Influenza Virus 2018-07-14 Completed Universit y of Vaccine 00:00:00 [facility] Influenza Virus 2018-07-14 Completed Universit y of Vaccine 00:00:00 [facility] Influenza Virus 2018-07-14 Completed Universit y of Vaccine 00:00:00 [facility] Influenza Virus 2018-07-14 Completed Universit y of Vaccine 00:00:00 [facility] Influenza Virus 2018-07-14 Completed Universit y of Vaccine 00:00:00 [facility] Influenza Virus 2018-07-14 Completed Universit y of Vaccine 00:00:00 [facility] Influenza Virus 2018-07-14 Completed Universit y of Vaccine 00:00:00 [facility] Influenza Virus 2018-07-14 Completed Universit y of Vaccine 00:00:00 [facility] Influenza Virus 2018-07-14 Completed Universit y of Vaccine 00:00:00 [facility] Influenza Virus 2018-07-14 Completed Universit y of Vaccine 00:00:00 [facility] Influenza Virus 2018-07-14 Completed Universit y of Vaccine 00:00:00 [facility] Influenza Virus 2018-07-14 Completed Universit y of Vaccine 00:00:00 [facility] Influenza Virus 2018-07-14 Completed Universit y of Vaccine 00:00:00 [facility] Influenza Virus 2018-07-14 Completed Universit y of Vaccine 00:00:00 [facility] Influenza Virus 2018-07-14 Completed Universit y of Vaccine 00:00:00 [facility] Influenza Virus 2018-07-14 Completed Universit y of Vaccine 00:00:00 [facility] Influenza Virus 2018-07-14 Completed Universit y of Vaccine 00:00:00 [facility] Influenza High Dose 2017-07-27 Completed Unive rsity of 00:00:00 [facility] Influenza High Dose 2017-07-27 Completed Unive rsity of 00:00:00 [facility] Influenza High Dose 2017-07-27 Completed Unive rsity of 00:00:00 [facility] Influenza High Dose 2017-07-27 Completed Unive rsity of 00:00:00 [facility] Influenza High Dose 2017-07-27 Completed Unive rsity of 00:00:00 [facility] Influenza High Dose 2017-07-27 Completed Unive rsity of 00:00:00 [facility] Influenza High Dose 2017-07-27 Completed Unive rsity of 00:00:00 [facility] Influenza High Dose 2017-07-27 Completed Unive rsity of 00:00:00 [facility] Influenza High Dose 2017-07-27 Completed Unive rsity of 00:00:00 [facility] Influenza High Dose 2017-07-27 Completed Unive rsity of 00:00:00 [facility] Influenza High Dose 2017-07-27 Completed Unive rsity of 00:00:00 [facility] Influenza High Dose 2017-07-27 Completed Unive rsity of 00:00:00 [facility] Influenza High Dose 2017-07-27 Completed Unive rsity of 00:00:00 [facility] Influenza High Dose 2017-07-27 Completed Unive rsity of 00:00:00 [facility] Influenza High Dose 2017-07-27 Completed Unive rsity of 00:00:00 [facility] Influenza High Dose 2017-07-27 Completed Unive rsity of 00:00:00 [facility] Influenza High Dose 2017-07-27 Completed Unive rsity of 00:00:00 [facility] Influenza High Dose 2017-07-27 Completed Unive rsity of 00:00:00 [facility] Influenza High Dose 2017-07-27 Completed Unive rsity of 00:00:00 [facility] Influenza High Dose 2017-07-27 Completed Unive rsity of 00:00:00 [facility] Influenza High Dose 2017-07-27 Completed Unive rsity of 00:00:00 [facility] DTAP 2016-09-11 Completed University of 00:00:00 [facility] Pneumococcal 13 2016-09-11 Completed Universit y of Conjugate, PCV13 00:00:00 [facility] [place] [facility] dical (Prevnar 13) Branch DTAP 2016-09-11 Completed University of 00:00:00 [facility] Pneumococcal 13 2016-09-11 Completed Universit y of Conjugate, PCV13 00:00:00 [facility] [place] [facility] dical (Prevnar 13) Branch DTAP 2016-09-11 Completed University of 00:00:00 [facility] Pneumococcal 13 2016-09-11 Completed Universit y of Conjugate, PCV13 00:00:00 [facility] [place] [facility] dical (Prevnar 13) Branch DTAP 2016-09-11 Completed University of 00:00:00 [facility] Pneumococcal 13 2016-09-11 Completed Universit y of Conjugate, PCV13 00:00:00 [facility] [place] [facility] dical (Prevnar 13) Branch DTAP 2016-09-11 Completed University of 00:00:00 [facility] Pneumococcal 13 2016-09-11 Completed Universit y of Conjugate, PCV13 00:00:00 [facility] [place] [facility] dical (Prevnar 13) Branch DTAP 2016-09-11 Completed University of 00:00:00 [facility] Pneumococcal 13 2016-09-11 Completed Universit y of Conjugate, PCV13 00:00:00 [facility] [place] [facility] dical (Prevnar 13) Branch DTAP 2016-09-11 Completed University of 00:00:00 [facility] Pneumococcal 13 2016-09-11 Completed Universit y of Conjugate, PCV13 00:00:00 [facility] [place] [facility] dical (Prevnar 13) Branch DTAP 2016-09-11 Completed University of 00:00:00 [facility] Pneumococcal 13 2016-09-11 Completed Universit y of Conjugate, PCV13 00:00:00 [facility] [place] [facility] dical (Prevnar 13) Branch AP 2016-09-11 Completed University of 00:00:00 [facility] Pneumococcal 13 2016-09-11 Completed Universit y of Conjugate, PCV13 00:00:00 [facility] [place] [facility] dical (Prevnar 13) Branch DTAP 2016-09-11 Completed University of 00:00:00 [facility] Pneumococcal 13 2016-09-11 Completed Universit y of Conjugate, PCV13 00:00:00 [facility] [place] [facility] dical (Prevnar 13) Branch DTAP 2016-09-11 Completed University of 00:00:00 [facility] Pneumococcal 13 2016-09-11 Completed Universit y of Conjugate, PCV13 00:00:00 [facility] [place] [facility] dical (Prevnar 13) Branch DTAP 2016-09-11 Completed University of 00:00:00 [facility] Pneumococcal 13 2016-09-11 Completed Universit y of Conjugate, PCV13 00:00:00 [facility] [place] [facility] dical (Prevnar 13) Branch DTAP 2016-09-11 Completed University of 00:00:00 [facility] Pneumococcal 13 2016-09-11 Completed Universit y of Conjugate, PCV13 00:00:00 [facility] [place] [facility] dical (Prevnar 13) Branch DTAP 2016-09-11 Completed University of 00:00:00 [facility] Pneumococcal 13 2016-09-11 Completed Universit y of Conjugate, PCV13 00:00:00 [facility] [place] [facility] dical (Prevnar 13) Branch DTAP 2016-09-11 Completed University of 00:00:00 [facility] Pneumococcal 13 2016-09-11 Completed Universit y of Conjugate, PCV13 00:00:00 [facility] [place] [facility] dical (Prevnar 13) Branch DTAP 2016-09-11 Completed University of 00:00:00 [facility] Pneumococcal 13 2016-09-11 Completed Universit y of Conjugate, PCV13 00:00:00 [place] [facility] dical (Prevnar 13) Branch DTAP 2016-09-11 Completed University of 00:00:00 [facility] Pneumococcal 13 2016-09-11 Completed Universit y of Conjugate, PCV13 00:00:00 [place] [facility] dical (Prevnar 13) Branch DTAP 2016-09-11 Completed University of 00:00:00 [facility] Pneumococcal 13 2016-09-11 Completed Universit y of Conjugate, PCV13 00:00:00 [facility] [place] [facility] dical (Prevnar 13) Branch DTAP 2016-09-11 Completed University of 00:00:00 [facility] Pneumococcal 13 2016-09-11 Completed Universit y of Conjugate, PCV13 00:00:00 [facility] [place] [facility] dical (Prevnar 13) Branch DTAP 2016-09-11 Completed University of 00:00:00 [facility] Pneumococcal 13 2016-09-11 Completed Universit y of Conjugate, PCV13 00:00:00 [facility] [place] [facility] dical (Prevnar 13) Branch DTAP 2016-09-11 Completed University of 00:00:00 [facility] Pneumococcal 13 2016-09-11 Completed Universit y of Conjugate, PCV13 00:00:00 [facility] dical (Prevnar 13) Branch Influenza High Dose 2016-07-02 Completed Unive rsity of 00:00:00 [facility] Influenza High Dose 2016-07-02 Completed Unive rsity of 00:00:00 [facility] Influenza High Dose 2016-07-02 Completed Unive rsity of 00:00:00 [facility] Influenza High Dose 2016-07-02 Completed Unive rsity of 00:00:00 [facility] Influenza High Dose 2016-07-02 Completed Unive rsity of 00:00:00 [facility] Influenza High Dose 2016-07-02 Completed Unive rsity of 00:00:00 [facility] Influenza High Dose 2016-07-02 Completed Unive rsity of 00:00:00 [facility] Influenza High Dose 2016-07-02 Completed Unive rsity of 00:00:00 [facility] Influenza High Dose 2016-07-02 Completed Unive rsity of 00:00:00 [facility] Influenza High Dose 2016-07-02 Completed Unive rsity of 00:00:00 [facility] Influenza High Dose 2016-07-02 Completed Unive rsity of 00:00:00 [facility] Influenza High Dose 2016-07-02 Completed Unive rsity of 00:00:00 [facility] Influenza High Dose 2016-07-02 Completed Unive rsity of 00:00:00 [facility] Influenza High Dose 2016-07-02 Completed Unive rsity of 00:00:00 [facility] Influenza High Dose 2016-07-02 Completed Unive rsity of 00:00:00 [facility] Influenza High Dose 2016-07-02 Completed Unive rsity of 00:00:00 [facility] Influenza High Dose 2016-07-02 Completed Unive rsity of 00:00:00 [facility] Influenza High Dose 2016-07-02 Completed Unive rsity of 00:00:00 [facility] Influenza High Dose 2016-07-02 Completed Unive rsity of 00:00:00 [facility] Influenza High Dose 2016-07-02 Completed Unive rsity of 00:00:00 [facility] Influenza High Dose 2016-07-02 Completed Unive rsity of 00:00:00 [facility] Zoster(Zostavax)( 2013-09-22 Completed Unive rsity of ingles) 00:00:00 [facility] Zoster(Zostavax)( 2013-09-22 Completed Unive rsity of ingles) 00:00:00 [facility] Zoster(Zostavax)( 2013-09-22 Completed Unive rsity of ingles) 00:00:00 [facility] Zoster(Zostavax)( 2013-09-22 Completed Unive rsity of ingles) 00:00:00 [facility] Zoster(Zostavax)( 2013-09-22 Completed Unive rsity of ingles) 00:00:00 [facility] Zoster(Zostavax)( 2013-09-22 Completed Unive rsity of ingles) 00:00:00 [facility] Zoster(Zostavax)( 2013-09-22 Completed Unive rsity of ingles) 00:00:00 [facility] Zoster(Zostavax)( 2013-09-22 Completed Unive rsity of ingles) 00:00:00 [facility] Zoster(Zostavax)( 2013-09-22 Completed Unive rsity of ingles) 00:00:00 [facility] Zoster(Zostavax)( 2013-09-22 Completed Unive rsity of ingles) 00:00:00 [facility] Zoster(Zostavax)( 2013-09-22 Completed Unive rsity of ingles) 00:00:00 [facility] Zoster(Zostavax)( 2013-09-22 Completed Unive rsity of ingles) 00:00:00 [facility] Zoster(Zostavax)( 2013-09-22 Completed Unive rsity of ingles) 00:00:00 [facility] Zoster(Zostavax)( 2013-09-22 Completed Unive rsity of ingles) 00:00:00 [facility] Zoster(Zostavax)( 2013-09-22 Completed Unive rsity of ingles) 00:00:00 [facility] Zoster(Zostavax)( 2013-09-22 Completed Unive rsity of ingles) 00:00:00 [facility] Zoster(Zostavax)( 2013-09-22 Completed Unive rsity of ingles) 00:00:00 [facility] [facility] Z[facility](Zostavax)( 2013-09-22 Completed Unive rsity of ingles) 00:00:00 [facility] Zoster(Zostavax)( 2013-09-22 Completed Unive rsity of ingles) 00:00:00 [facility] Zoster(Zostavax)( 2013-09-22 Completed Unive rsity of ingles) 00:00:00 [facility] Zoster(Zostavax)( 2013-09-22 Completed Unive rsity of ingles) 00:00:00 [facility] Vital Signs Vital Name Observation Time Observation Value Comments Source height 2022-07-09 10:45:00 64.5 [in_i] [facility] weight 2022-07-09 10:45:00 162 [lb_av] [facility] temperature 2022-07-09 10:45:00 97.7 [degF] Common S pirit - [facility] bmi 2022-07-09 10:45:00 27.37 kg/m2 Common S pirit - [facility] blood pressure 2022-07-09 10:45:00 116 mm[Hg] Common [facility] - systolic [facility] blood pressure 2022-07-09 10:45:00 72 mm[Hg] Common [facility] - diastolic [facility] height 2021-12-28 13:30:00 64.5 [in_i] Common S [facility] weight 2021-12-28 13:30:00 170 [lb_av] [facility] temperature 2021-12-28 13:30:00 97.3 [degF] [facility] bmi 2021-12-28 13:30:00 28.73 kg/m2 Common S pirit [facility] oximetry 2021-12-28 13:30:00 97 % [facility] S [facility] respiratory rate 2021-12-28 13:30:00 16 /min Comm on Spirit - [facility] blood pressure 2021-12-28 13:30:00 119 mm[Hg] Common [facility] - systolic [facility] blood pressure 2021-12-28 13:30:00 78 mm[Hg] Common [facility] - diastolic [facility] height 2021-09-28 15:45:00 64.5 [in_i] Common S pirit [facility] weight 2021-09-28 15:45:00 173 [lb_av] [facility] temperature 2021-09-28 15:45:00 97.8 [degF] Common S pirit [facility] bmi 2021-09-28 15:45:00 30.42 kg/m2 [facility] oximetry 2021-09-28 15:45:00 99 % [facility] respiratory rate 2021-09-28 15:45:00 18 /min Comm on Spirit - [facility] blood pressure 2021-09-28 15:45:00 137 mm[Hg] Common [facility] - systolic [facility] blood pressure 2021-09-28 15:45:00 66 mm[Hg] Common [facility] - diastolic [facility] Systolic blood 2021-09-16 19:00:00 155 mm[Hg] Univer sity of pressure [facility] Diastolic blood 2021-09-16 19:00:00 57 mm[Hg] Unive rsity of pressure [facility] Heart rate 2021-09-16 19:00:00 54 /min Universi ty [facility] Respiratory rate 2021-09-16 19:00:00 17 /min [facility] O[facility] saturation in 2021-09-16 19:00:00 98 /min [facility] Arterial blood by [facility] Pulse oximetry Branch Body temperature 2021-09-16 17:42:[address] [facility] Body height 2021-09-16 17:42:00 167.6 cm [facility] Body weight 2021-09-16 17:42:00 [facility].204 [facility] 2021-09-16 17:42:00 27.12 kg/m2 [facility] height 2021-07-26 10:20:00 64.5 [in_i] [facility] weight 2021-07-26 10:20:00 180 [lb_av] Common [facility] temperature 2021-07-26 10:20:00 98.0 [degF] Common [facility] bmi 2021-07-26 10:20:00 30.42 kg/m2 [facility] oximetry 2021-07-26 10:20:00 93 % Common [facility] blood pressure 2021-07-26 10:20:00 147 mm[Hg] Common [facility] - systolic [facility] blood pressure 2021-07-26 10:20:00 89 mm[Hg] [facility] - diastolic [facility] Systolic blood 2019-11-09 18:57:00 131 mm[Hg] Univer sity of pressure [facility] Diastolic blood 2019-11-09 18:57:00 81 mm[Hg] Unive rsity of pressure [facility] Heart rate 2019-11-09 18:57:00 90 /min Universi ty of [facility] Body temperature 2019-11-09 18:57:00 36.17 Nicole Univ ersity of [facility] Respiratory rate 2019-11-09 18:57:00 20 /min Univ ersity of [facility] Body height 2019-11-09 18:57:00 165.1 cm [facility] Body weight 2019-11-09 18:57:00 76.2 kg Universi ty of [facility] BMI 2019-11-09 18:57:00 27.96 kg/m2 Universi ty of [facility] Systolic blood 2019-11-09 18:57:00 131 mm[Hg] Univer sity of pressure [facility] Diastolic blood 2019-11-09 18:57:00 81 mm[Hg] Unive rsity of pressure [facility] Heart rate 2019-11-09 18:57:00 90 /min Universi ty of [facility] Body temperature 2019-11-09 18:57:00 36.17 Nicole Univ ersity of [facility] Respiratory rate 2019-11-09 18:57:00 20 /min Univ ersity of [facility] Body height 2019-11-09 18:57:00 165.1 cm [facility] Body weight 2019-11-09 18:57:00 76.2 kg [facility] BMI 2019-11-09 18:57:00 27.96 kg/m2 Universi ty of [facility] Body temperature 2019-05-14 20:50:00 35.72 Nicole Univ ersity of [facility] Body temperature 2019-05-12 18:28:00 36.22 Nicole Univ ersity of [facility] Body weight 2019-05-12 18:28:00 72.621 kg Universi ty of [facility] BMI 2019-05-12 18:28:00 25.84 kg/m2 Universi ty of [facility] Procedures Procedure Date / Time Performing Clinician Source Performed SARS-COV-2 COVID-19 2022-03-05 20:48:52 Doctor Unassigned, No [facility] [place] VACCINE Name Medical Branch BOOSTER,0.25ML,IM (MODERNA) SARS-COV-2 COVID-19 2021-10-04 22:31:03 Doctor Unassigned, No [facility] [place] VACCINE [facility] BOOSTER,0.25ML,IM (MODERNA) URINALYSIS 2021-09-16 18:12:00 Elif Andino [facility] NOTICE OF PRIVACY 2021-09-16 17:32:53 Doctor Unassigned, No [facility] [place] PRACTICES Name [facility] CONSENT/REFUSAL FOR 2021-09-16 17:32:23 Doctor Unassigned, No [facility] [place] DIAGNOSIS AND TREATMENT [facility] SCANNED LAB RESULTS 2019-11-09 06:01:00 Doctor Unassigned, No Un [facility] PPD (TB) 2019-05-12 19:26:19 Irma [place] [facility] PNEUMOCOCCAL VACCINE, 2019-05-12 19:26:19 [facility] [place] [facility] (PNEUMOVAX) Medical Br anch Encounters Start End Encounter Admission Attending Care Care Encounter Source Date/Time Date/Time Type Type Clinicians Facility Department ID 2022-07-13 Outpatient Banks, [facility] [id number] Common 11:31:01 Mauri [facility] 2022-07-09 [facility] [id number] Common 11:53:01 Mauri [facility] 2022-06-21 [facility] [id number] Common 15:39:00 Mauri [facility] 2022-02-19 [facility] [id number] Common 08:38:01 Mauri [facility] 2021-11-08 [facility], [facility] [id number] Common 14:35:19 Mauri [facility] 2021-11-08 [facility] [id number] Common 13:45:19 Mauri [facility] 2021-11-08 Outpatient Banks, STLMLC STLMLC [id number] Common 13:43:26 Mauri 84443 [facility] 2021-11-08 Outpatient Banks, STLMLC STLMLC [id number] Common 12:53:23 Mauri [id number] [facility] 2021-11-08 Outpatient STLMLC STLMLC [id number] Common 11:35:39 [id number] [facility] 2021-11-08 Outpatient STLMLC STLMLC [id number] Common 11:32:21 [id number] [facility] 2021-11-08 Outpatient STLMLC STLMLC [id number] Common 11:28:02 [id number] [facility] 2022-07-11 2022-07-11 (TEL) STLMLC STLMLC [id number] Co mmon 00:00:00 00:00:00 [facility] 2022-07-09 2022-07-09 OFFICE STLMLC STLMLC [id number] Co mmon 00:00:00 00:00:00 VISIT [facility] LEVEL 4 [facility] 2022-06-13 2022-06-13 [facility] 1.2.840.114 [id number] [facility] 16:28:00 23:59:00 Encounter Russ H [id number] ity of BUILDING [id number] Shine as [phone] [address] 2022-06-13 2022-06-13 [facility]patient [facility] [id number] [facility] 00:00:00 23:59:00 RUSS ity [facility] 2022-06-01 2022-06-01 [facility] 1.2.840.114 [id number] Univers 15:00:00 23:59:00 Encounter Russ H [id number] ity of BUILDING [id number] Shine as [phone] [address] 2022-06-01 2022-06-01 Outpatient [facility] [id number] Univers 00:00:00 23:59:00 RUSS [facility] 2022-03-08 2022-03-08 (TEL) STLMLC STLMLC [id number] Co mmon 00:00:00 00:00:00 [facility] 2022-03-05 2022-03-05 Imm/Inj Vaccine, Adc Family Medicine [facility] 1.2.840.114 [id number] Univers 16:00:00 16:10:00 Visit Félix Garcia 350.1.13 .10 [facility] [id number] Lang sanchez PROFESSIO [phone] In dical [address] 2022-03-05 2022-03-05 Outpatient Homer GARCIA [facility] [id number] Univers 16:00:00 16:00:00 FÉLIX [facility] 2022-02-18 2022-02-18 (TEL) STLMLC STLMLC [id number] Co mmon 00:00:00 00:00:00 [facility] 2022-02-07 2022-02-07 (TEL) STLMLC STLMLC [id number] Co mmon 00:00:00 00:00:00 [facility] 2022-02-07 2022-02-07 ([place]) Nurse STLMLC STLMLC [id number] Common 00:00:00 00:00:00 Visit [facility] 2022-01-29 2022-01-29 ([place]) Nurse STLMLC STLMLC [id number] Common 00:00:00 00:00:00 Visit [facility] 2022-01-29 2022-01-29 (TEL) STLMLC STLMLC [id number] Co mmon 00:00:00 00:00:00 [facility] 2021-12-28 2021-12-28 OFFICE STLMLC STLMLC [id number] Co mmon 00:00:00 00:00:00 VISIT [facility] LEVEL 2 [facility] 2021-10-30 2021-10-30 (TEL) STLMLC STLMLC [id number] Co mmon 00:00:00 00:00:00 [facility] 2021-10-28 2021-10-28 (TEL) STLMLC STLMLC [id number] Co mmon 00:00:00 00:00:00 [facility] 2021-10-04 2021-10-04 Imm/Inj Vaccine, Ang Db Cbc Fam [facility] 1. 2.840.114 [id number] Univers 16:00:00 16:28:24 Visit Fiona Ferreira [facility] [id number] itMissy [id number] Shine as MARIA E?BLEA [phone] [address] MEDICAL OFFICE BUILDING 2021-10-04 2021-10-04 Outpatient R HANNA [facility] [id number] Univers 16:00:00 16:00:00 [facility] 2021-09-28 2021-09-28 OFFICE STLMLC STLMLC [id number] Co mmon 00:00:00 00:00:00 VISIT EST Spir it PT LEVEL 3 - [facility] 2021-09-16 2021-09-16 Emergency [facility] [id number] Univers 11:39:00 13:56:00 ELIF ruby [facility] 2021-09-16 2021-09-16 Emergency [facility] 1.2.840.114 [id number] Univers 11:39:00 13:56:00 Elif SERRANO [id number] ity jean BUSTOS [id number] [facility] [phone] [address] 2021-09-11 2021-09-11 OFFICE STLMLC STLMLC [id number] Co mmon 00:00:00 00:00:00 VISIT Spirit ESTAB PT - CHI LEVEL 1 [facility] 2021-09-11 2021-09-11 (TEL) STLMLC STLMLC [id number] Co mmon 00:00:00 00:00:00 [facility] 2021-08-14 2021-08-14 OFFICE STLMLC STLMLC [id number] Co mmon 00:00:00 00:00:00 VISIT [facility] ESTAB PT - [facility] LEVEL 1 [facility] 2021-07-26 2021-07-26 OFFICE STLMLC STLMLC [id number] Co mmon 00:00:00 00:00:00 VISIT EST Spir it PT LEVEL 3 - [facility] 2021-06-29 2021-06-29 Outpatient STLMLC STLMLC [id number] Common 00:00:00 00:00:00 [facility] 2021-06-14 2021-06-14 Outpatient STLMLC STLMLC [id number] Common 00:00:00 00:00:00 [facility] 2021-04-20 2021-04-20 Outpatient STLMLC STLMLC [id number] Common 00:00:00 00:00:00 [facility] 2021-04-12 2021-04-12 Outpatient STLMLC STLMLC [id number] Common 00:00:00 00:00:00 [facility] 2021-04-04 2021-04-04 Outpatient STLMLC STLMLC [id number] Common 00:00:00 00:00:00 [facility] 2021-04-03 2021-04-03 Outpatient STLMLC STLMLC [id number] Common 00:00:00 00:00:00 [facility] 2021-02-20 2021-02-20 Outpatient STLMLC STLMLC [id number] Common 00:00:00 00:00:00 [facility] 2021-01-30 2021-01-30 Outpatient STLMLC STLMLC [id number] Common 00:00:00 00:00:00 [facility] 2020-12-19 2020-12-19 Outpatient STLMLC STLMLC [id number] Common 00:00:00 00:00:00 [facility] 2020-11-14 2020-11-14 Outpatient Homer NASSAR, [facility] [id number] Univers 14:30:00 14:30:00 PORTER ruby [facility] 2020-10-17 2020-10-17 Outpatient Homer NASSAR [facility] [id number] Univers 14:20:00 14:20:00 PORTER [facility] 2020-10-17 2020-10-17 Outpatient Homer NASSAR [facility] [id number] Univers 14:20:00 14:20:00 PORTER [facility] 2020-07-18 2020-07-18 [facility] [place], [facility] 1.2.840.114 [id number] 00:00:00 00:00:00 Irma [facility] [id number] [place] [id number] Professio [phone] [place] [address] [address] 2020-07-18 2020-07-18 [facility] 1.2.840.114 [id number] [facility] 00:00:00 00:00:00 [facility]ma [facility] [id number] ity of [place] [id number] Shine as Professio [phone] [address] Office [address] [facility] 2020-06-03 2020-06-03 [facility] [place], [facility] 1.2.840.114 [id number] 00:00:00 00:00:00 [facility] [id number] [place] [id number] Professio [phone] [place] [address] [address] 2020-06-03 2020-06-03 [facility] [place], [facility] 1.2.840.114 [id number] [facility] 00:00:00 00:00:00 Ir[facility] [id number] ity of [place] [id number] Shine as Professio [phone] In dic[address] Office [address] [facility] 2020-05-24 2020-05-24 Outpatient Roxanne Boogie [id number] Common 11:00:00 11:00:00 [facility] 2020-05-17 2020-05-17 Outpatient Roxanne Boogie [id number] Common 09:08:00 09:08:00 t [facility] - [facility] 2020-05-02 2020-05-02 [facility] [id number] Common 10:30:00 10:30:00 t [facility] Bone [facility] Sp[facility] t [facility] - [facility] 2020-03-03 2020-03-03 Refill [place], [facility] 1.2.840.114 [id number] 00:00:00 00:00:00 Irma A [place] [id number] [place] [id number] Professio [phone] [address] 2020-03-03 2020-03-03 Refill [place], [facility] 1.2.840.114 [id number] [facility] 00:00:00 00:00:00 Irma A [place] [id number] [place]y [place]2.[place] [phone] [address] 2020-03-01 2020-03-01 Telephone [place], [facility] 1.2.840.114 [id number] 00:00:00 00:00:00 Irma A [place] [id number] [place] 4.2.7.2.686 Professio [phone] [address] 2020-03-01 2020-03-01 Telephone [place], [facility] 1.2.840.114 [id number] [facility] 00:00:00 00:00:00 Irma A [place] [id number] it[id number] [phone] In dic[address] 2020-02-26 2020-02-26 Refill [place], [facility] 1.2.840.114 [id number] 00:00:00 00:00:00 Irma A [place] 350.1.13.10 [place] 4.2.7.2.686 Professio [phone] [address] 2020-02-26 2020-02-26 Refill Aditi, [facility] 1.2.840.114 [id number] Univers 00:00:00 00:00:00 Irma A [place] [id number] [place].2.7.2.[place] [phone] [facility] [address] [facility] 2019-12-26 2019-12-26 [facility] 1.2.840.114 [id number] 00:00:00 00:00:00 Irma A [place] 350.1.13.10 [place] 4.2.7.2.686 Professio [phone] [address] 2019-12-26 2019-12-26 [facility]ill [facility] 1.2.840.114 [id number] [facility] 00:00:00 00:00:00 Irma A [place] [id number] it[place] 4[place]2.7.2.[place] [phone] [address] 2019-12-08 2019-12-08 Telephone Dex Fair [facility] 1.2.840.114 [id number] 00:00:00 00:00:00 W SPECIALTY [id number] [place] 4.2.7.2.686 [place] [id number] [facility] 2019-12-08 2019-12-08 Telephone Dex Fair [facility] 1.2.840.114 [id number] [facility] 00:00:00 00:00:00 W SPECIALTY [id number] [place].2.[place] [phone] [address] 2019-12-01 2019-12-01 Telephone Jessica [facility] 1.2.148.903 [id number] 00:00:00 00:00:00 Rosario SPECIALTY 350.1.13.10 [place] 4.2.7.2.686 COLONY [phone] [facility] 2019-12-01 2019-12-01 [facility] 1.2.840.114 [id number] 00:00:00 00:00:00 Irma A [place] 350.1.13.10 [place] 4.2.7.2.686 Professio [phone] [address] 2019-12-01 2019-12-01 Telephone [facility] 1.2.111.030 [id number] Univers 00:00:00 00:00:00 Rosario SPECIALTY [id number] ity of [place]2.7.2.[place] [phone] [address] 2019-12-01 2019-12-01 [facility] 1.2.840.114 [id number] Univers 00:00:00 00:00:00 Irma Serrano [id number] [place].2.[place] [phone] [address] 2019-11-26 2019-11-26 [facility] 1.2.840.114 [id number] Univers 00:00:00 00:00:00 Irma Serrano 350.1.13.10 [place]2.[place].2.[place] [phone] [address] 2019-11-09 2019-11-09 Office Sherryradha [facility] 1.2.840.114 [id number] 12:48:32 13:48:32 Visit Rosario SPECIALTY 350.1.13.10 [place] 4.2.7.2.686 COLONY [phone] [facility] 2019-11-09 2019-11-09 Office Rosario Lopez [facility] 1.2.840. 114 [id number] [facility] 12:48:32 13:48:32 Visit Dex Fair SPECIALTY 350.1.13.10 ity of [place]2.[place].2.[place] [phone] [address] 2019-11-09 2019-11-09 Orders Doctor ALFRED 1.2.840.114 [id number] 00:00:00 00:00:00 Only Unassigned, [place] 350.1.13.10 [facility] 4.2.7.2.686 [phone] 009 2019-11-09 2019-11-09 Orders Doctor [facility] 1.2.840.114 [id number] Univers 00:00:00 00:00:00 Only Unassigned, [place] 350.1.13.10 ity of [place] [facility] 4.2.7.2.686 Shine as [phone] [address] 2019-05-14 2019-05-14 Nurse Nurse, [facility] 1.2.840.114 [id number] [facility] 15:28:41 15:43:41 Visit Irma [place] 350.1. 13.10 [place].2.[place] [phone] In dical nal 044 [facility] 2019-05-14 2019-05-14 Letter Aditi [facility] 1.2.840.114 [id number] Univers 00:00:00 00:00:00 (Out) Irma Serrano 350.1.13.10 [place]2.[place].2.[place] [phone] In dical nal [address] [facility] 2019-05-12 2019-05-12 Nurse Nurse, [facility] 1.2.840.114 [id number] [facility] 13:01:21 15:09:23 Visit Irma [place] 350.1. 13.10 [place] 4.2.7.2.[place] [phone] In dical nal 044 [facility] 2019-03-26 2019-03-26 [facility]patient [facility] [id number] Common 08:00:00 08:00:00 t Bone Bone and Spiri t and Joint [facility] 2019-01-12 2019-01-12 [facility] [id number] Common 11:00:00 11:00:00 t [facility] Bone [facility] Sp[facility] t [facility] - [facility] Results Test Description Test Time Test Comments Results Result Comments Source HEMOGLOBIN A1C 2017-05-16 21:48:00 Test Item Value Reference Range Interpretation Comme nts HEMOGLOBIN A1C (BEAKER) (test code = 368) 6.2 % 4.3-6.1 H [id number] 07:10:00 Test Item Value Reference Range Interpretation Comments MAGNESIUM (BEAKER) (test code = 1.9 mg/dL 1.6-2.6 627) BASIC METABOLIC [id number] 07:10:00 Test Item Value Reference Range Interpretation [...] WBC 0-0 (BEAKER) (test code = 413) [id number] 05:45:00 Test Item Value Reference Range Interpretation Comments MAGNESIUM (BEAKER) 2.3 mg/dL 1.6-2.6 Specimen moderately (test code = 627) hemolyzed COMPREHENSIVE METABOLIC [id number] 05:45:00 Test Item Value Reference Range Interpretation [...] S NOT APPLICABLE FOR DIALYSIS PATIEN TS. [id number] 11:50:00 Test Item Value Reference Range Interpretation Comments RPR SCREEN (BEAKER) (test code = Nonreactive Nonreactive 420) BASIC METABOLIC [id number] 06:28:00 Test Item Value Reference Range Interpretation [...] NOT APPLICABLE FOR DIALYSIS PATIEN TS. FastingLIPID [id number] 06:28:00 Test Item Value Reference Range Interpretation [...] Very High >=190 Fasting VITAMIN B12 AND [id number] 04:10:00 Test Item Value Reference Range Interpretation Comments VITAMIN B12 (BEAKER) (test code = 514 pg/mL 213-816 774) FOLATE (BEAKER) (test code = 362) > ng/mL >=7.0 Effective 08/31/2014: Folate Reference Range ChangeNew: >=7.0 Previous: >=5.4TSH/FREE T4 IF [id number] 02:52:00 Test Item Value Reference Range Interpretation Comments THYROID STIMULATING HORMONE 2.55 uIU/mL 0.35-4.94 (BEAKER) (test code = 772) SEDIMENTATION [id number] 01:10:00 Test Item Value Reference Range Interpretation Comments SEDIMENTATION RATE, ERYTHROCYTE 6 mm/HR 0-40 (BEAKER) (test code = 766) [id number] 00:35:00 Test Item Value Reference Range Interpretation Comments HOMOCYSTEINE (BEAKER) (test code = 8.5 umol/L 5.1-15.4 642) URINALYSIS W/ [id number] 00:30:00 Test Item Value Reference Range Interpretation [...] (test code = Urine, Voided 2795) TROPONIN [id number] 00:23:00 Test Item Value Reference Range Interpretation [...] acute neurological disease, and persistent tachyarrhythmia.HEPATIC FUNCTION [id number] 00:17:00 Test Item Value Reference Range Interpretation [...] = 31 U/L 6-55 347) BASIC METABOLIC [id number] 00:17:00 Test Item Value Reference Range Interpretation [...] NOT APPLICABLE FOR DIALYSIS PATIEN TS. C-REACTIVE [id number] 00:17:00 Test Item Value Reference Range Interpretation Comments C-REACTIVE PROTEIN (BEAKER) (test 0.55 mg/dL 0.00-0.50 H code = 676) PROTHROMBIN [id number] 00:07:00 Test Item Value Reference Range Interpretation [...] mechanical heart valves.CBC W/PLT COUNT & AUTO [id number] 00:01:00 Test Item Value Reference Range Interpretation [...] % 0-1 PERCENT (BEAKER) (test code = 4869)
[2022-09-28] MEDS ORDERED: NA CHLORIDE 0.9% 500 ML ONE (20:06)
[2022-09-28] MEDS ORDERED: NA CHLORIDE 0.9% 1,000 ML ONE (20:07)
--- NOTE | 2022-09-28 20:14 | RAD REPORT ---
EXAM DESCRIPTION: RAD - Chest Single View - 09/28/2022 8:04 pm CLINICAL HISTORY: Cough Chest pain. COMPARISON: Chest Single View dated 05/01/2022; Chest Single View dated 09/21/2021; Chest Single View dated 08/26/2021; Chest Single View dated 06/11/2021 FINDINGS: Portable technique limits examination quality. Mild bilateral pulmonary opacities are present, greatest in the right lung base likely representing i nfection/ developing pneumonia. Another possibility would be mild CHF. The heart is moderately enlarg ed. No displaced fractures.
[2022-09-28 20:46] LABS: Absolute Lymphocytes (CBC) 0.6 K/uL (0.7-4.9); Hematocrit 42.8 % (36.0-45.0); Lymphocytes % 5.7 % (15.3-44.8); MCV 99.4 fL (80-100); MPV 8.9 fL (7.6-11.3); RBC Red Blood Cell Count 4.31 M/uL (3.86-4.86)
[2022-09-28 20:48] LABS: Protime INR 3.58
[2022-09-28 21:00] LABS: Albumin 2.6 g/dL (3.4-5.0); Bilirubin Direct 0.3 mg/dL (0-0.2)
[2022-09-28 21:04] LABS: Bilirubin Total 1.1 mg/dL (0.2-1.0)
[2022-09-28 21:05] LABS: Magnesium 2.1 mg/dL (1.6-2.4); Potassium 4.7 mmol/L (3.5-5.1)
[2022-09-28 21:10] LABS: Protein, Total 7.2 g/dL (6.4-8.2); Troponin High Sensitivity 17.5 pg/mL (<58.9)
--- NOTE | 2022-09-28 21:16 | EDPHYS ---
Physician Documentation [facility] Name: Irene Bauer Age: 81 yrs Sex: Female : 1940 Arrival Date: 09/28/2022 Time: 19:09 Bed 5 Private MD: ED Physician Td Yancey HPI: 09/28 20:56 This 81 yrs old Female presents to ER via EMS with complaints of Shortness Of wan Breath. 20:56 The patient has shortness of breath at rest, with light activity. Onset: The wan symptoms/episode began/occurred 1 day(s) ago. Duration: The symptoms are continuous, and are steadily getting worse. The patient's shortness of breath has no apparent modifying factors. Associated signs and symptoms: The patient has no apparent associated signs or symptoms. Severity of symptoms: At their worst the symptoms were mild moderate in the emergency department the symptoms are unchanged. The patient has not experienced similar symptoms in the past. Historical: - Allergies: 19:11 NKA; hb - PMHx: 19:11 Atrial Fib; Glaucoma; Osteopenia; osteoarthritis of spine; Hypertension; colon cancer; hb Cataracts; CHF; NOSE BLEEDS; Osteoporosis; TIA; - PSHx: 19:11 spine; Total abdominal hysterectomy; hb - Immunization history:: Adult Immunizations up to date. - Social history:: Smoking status: Patient denies any tobacco usage or history of. ROS: 20:59 Constitutional: Negative for fever, chills, and weight loss, Eyes: Negative for injury, wan pain, redness, and discharge, ENT: Negative for injury, pain, and discharge, Neck: Negative for injury, pain, and swelling, Cardiovascular: Negative for chest pain, palpitations, and edema, Abdomen/GI: Negative for abdominal pain, nausea, vomiting, diarrhea, and constipation, Back: Negative for injury and pain, : Negative for injury, bleeding, discharge, and swelling, Skin: Negative for injury, rash, and discoloration, Neuro: Negative for headache, weakness, numbness, tingling, and seizure, Psych: Negative for depression, anxiety, suicide ideation, homicidal ideation, and hallucinations, Allergy/Immunology: Negative for hives, rash, and allergies, Endocrine: Negative for neck swelling, polydipsia, polyuria, polyphagia, and marked weight changes, Hematologic/Lymphatic: Negative for swollen nodes, abnormal bleeding, and unusual bruising. 20:59 Respiratory: Positive for cough, with no reported sputum, shortness of breath, at rest. wheezing, inspiratory, expiratory, of the left posterior lower lobe, right posterior middle lobe and right posterior lower lobe. Exam: 20:59 Constitutional: This is a well developed, well nourished patient who is awake, alert, wan and in no acute distress. Head/Face: Normocephalic, atraumatic. Eyes: Pupils equal round and reactive to light, extra-ocular motions intact. Lids and lashes normal. Conjunctiva and sclera are non-icteric and not injected. Cornea within normal limits. Periorbital areas with no swelling, redness, or edema. ENT: Nares patent. No nasal discharge, no septal abnormalities noted. Tympanic membranes are normal and external auditory canals are clear. Oropharynx with no redness, swelling, or masses, exudates, or evidence of obstruction, uvula midline. Mucous membranes moist. Neck: Trachea midline, no thyromegaly or masses palpated, and no cervical lymphadenopathy. Supple, full range of motion without nuchal rigidity, or vertebral point tenderness. No Meningismus. Chest/axilla: Normal chest wall appearance and motion. Nontender with no deformity. No lesions are appreciated. Cardiovascular: Regular rate and rhythm with a normal S1 and S2. No gallops, murmurs, or rubs. Normal PMI, no JVD. No pulse deficits. Abdomen/GI: Soft, non-tender, with normal bowel sounds. No distension or tympany. No guarding or rebound. No evidence of tenderness throughout. Back: No spinal tenderness. No costovertebral tenderness. Full range of motion. Female : Normal external genitalia. Skin: Warm, dry with normal turgor. Normal color with no rashes, no lesions, and no evidence of cellulitis. Neuro: Awake and alert, GCS 15, oriented to person, place, time, and situation. Cranial nerves II-XII grossly intact. Motor strength 5/5 in all extremities. Sensory grossly intact. Cerebellar exam normal. Normal gait. Psych: Awake, alert, with orientation to person, place and time. Behavior, mood, and affect are within normal limits. 20:59 ECG was reviewed by the Attending Physician. 20:59 Respiratory: mild respiratory distress is noted, Respirations: labored breathing, that is mild, Breath sounds: bronchial sounds, that are moderate, decreased breath sounds, that are mild, rhonchi, that are mild, stridor, that is mild, wheezing: inspiratory expiratory Respiratory rate: 19 Vital Signs: 19:09 BP 153 / 100; Pulse 100; Resp 20; Temp 98.2(O); Pulse Ox 97% on R/A; Weight 74.84 kg; hb Height 5 ft. 5 in. (165.10 cm); Pain 0/10; 20:31 BP 154 / 103; Pulse 89; Resp 19 S; Pulse Ox 94% on 2 lpm NC; as6 22:00 BP 158 / 108; Pulse 86; Resp 15 S; Pulse Ox 99% on 2 lpm NC; as6 23:00 BP 129 / 79; Pulse 96; Resp 16 S; Pulse Ox 100% on 2 lpm NC; as6 19:09 Body Mass Index 27.46 (74.84 kg, 165.10 cm) hb MDM: 19:48 Patient medically screened. wan 21:17 Differential diagnosis: Anemia asthma, Bronchitis CHF exacerbation, Chronic Obstructive wan Pulmonary Disease pneumonia, Pneumothorax pulmonary edema, Pulmonary Embolism Sepsis. Antibiotic administration: zosyn. The patient's Wells Deep Vein Thrombosis Score was calculated as follows: Heart Rate >100 BPM (1.5 Pts) Total Score: 0-2 Pts- Low Risk. Differential Diagnosis: Obstructed Airway Bronchitis Influenza Upper Respiratory Infection Sinusitis Asthma Exacerbation Viral Syndrome Pneumonia. The patient's pulmonary embolism risk score was calculated as follows: the patients heart rate is greater than 100 beats per minute (1.5 Pts) patient has experienced immobilization or surgery in the last four weeks (1.5 Pts) Total Score: 3-6 points. This patient was found to be at moderate risk for a pulmonary embolism by using the Well's assessment criteria. Immunization status: Pneumococcal vaccine: Influenza vaccine: Data reviewed: vital signs, nurses notes, lab test result(s), EKG, radiologic studies, plain films. Data interpreted: cardiac monitor technician: rate is 89 beats/min, rhythm is regular, Pulse oximetry: on room air is 94 %. Test interpretation: by ED physician or midlevel provider: ECG, plain radiologic studies. Counseling: I had a detailed discussion with the patient and/or guardian regarding: the historical points, exam findings, and any diagnostic results supporting the discharge/admit diagnosis, the presence of at least one elevated blood pressure reading (>120/80) during this emergency department visit, lab results, radiology results, the need for further work-up and treatment in the hospital. 09/28 19:46 Order name: Basic Metabolic Panel; Complete Time: 21:17 [facility] 09/28 19:46 Order name: CBC with Diff; Complete Time: 20:50 [facility] 09/28 19:46 Order name: LFT's; Complete Time: 21:17 [facility] 09/28 19:46 Order name: Magnesium; Complete Time: 21:17 [facility] 09/28 19:46 Order name: NT PRO-BNP; Complete Time: 21:17 [facility] 09/28 19:46 Order name: PT-INR; Complete Time: 20:51 [facility] 09/28 19:46 Order name: Troponin HS; Complete Time: 21:17 [facility] 09/28 19:46 Order name: XRAY Chest (1 view); Complete Time: 20:50 [facility] 09/28 19:46 Order name: Blood Culture Adult (2) [facility] 09/28 19:46 Order name: D-Dimer; Complete Time: 20:51 [facility] 09/28 19:46 Order name: Lactate w/ 2H reflex if indic.; Complete Time: 21:05 [facility] 09/28 19:46 Order name: Lipase; Complete Time: 21:17 [facility] 09/28 19:46 Order name: COVID-19/FLU A+B; Complete Time: 21:29 [facility] 09/28 19:46 Order name: Urine Culture [facility] 09/28 19:46 Order name: EKG; Complete Time: 19:47 [facility] 09/28 19:46 Order name: Cardiac monitoring; Complete Time: 19:58 [facility] 09/28 19:46 Order name: EKG - Nurse/Tech; Complete Time: 19:58 [facility] 09/28 19:46 Order name: IV Saline Lock; Complete Time: 20:30 [facility] 09/28 19:46 Order name: Labs collected and sent; Complete Time: 20:30 [facility] 09/28 20:51 Order name: US Extremity Venous W Compression Reinier; Complete Time: 23:31 [facility] 09/28 21:22 Order name: CT Chest For PE Angio 09/28 19:46 Order name: O2 Per Protocol; Complete Time: 19:58 [facility] 09/28 19:46 Order name: O2 Sat Monitoring; Complete Time: 19:58 wan EC:59 Rate is 125 beats/min. Rhythm is regular. QRS [place] is Normal. [place] interval is normal. wan QRS interval is normal. QT interval is normal. No Q waves. T waves are Normal. No ST changes noted. Clinical impression: Sinus tachycardia. Interpreted by me. Reviewed by me. Administered Medications: 20:55 Discontinued: NS 0.9% 1000 ml IV at 125 ml/hr continuous wan 20:30 Drug: NS 0.9% 500 ml Route: IV; Rate: bolus; Site: right forearm; as6 23:43 Follow up: Response: No adverse reaction; IV Status: Completed infusion; IV Intake: as6 500ml 20:30 Drug: NS 0.9% 1000 ml Route: IV; Rate: 125 ml/hr; Site: right forearm; as6 23:43 Follow up: Response: No adverse reaction; IV Status: Order to discontinue infusion; IV as6 Intake: 100ml 20:58 CANCELLED (Duplicate Order): Lasix (furosemide) 20 mg IVP once; give over 2 minutes wan 22:19 Drug: Zosyn (piperacillin-tazobactam) 3.375 grams Route: IVPB; Infused Over: 60 mins; as6 Site: right jugular; 23:42 Follow up: Response: No adverse reaction; IV Status: Completed infusion; IV Intake: as6 100ml 22:19 Drug: SOLU-Medrol (methylPrednisoLONE) 125 mg Route: IVP; Site: right jugular; as6 23:42 Follow up: Response: No adverse reaction as6 22:19 Drug: Xopenex (levalbuterol) 2.5 mg Route: Inhalation; as6 23:42 Follow up: Response: No adverse reaction as6 22:19 Drug: AtroVENT (ipratropium) Aerosol 0.5 mg Route: Inhalation; as6 23:42 Follow up: Response: No adverse reaction as6 22:19 Drug: Lasix (furosemide) 40 mg Route: IVP; Site: right jugular; as6 23:42 Follow up: Response: No adverse reaction as6 Disposition Summary: 09/28/22 21:15 Hospitalization Ordered Hospitalization Status: Inpatient Admission wan Provider: eDx Melvin cha Location: Telemetry/MedSur (Inpatient) wan Condition: Fair wan Problem: new wan Symptoms: have worsened wan Bed/Room Type: Standard wan Room Assignment: 231(09/28/22 22:52) Diagnosis - Systolic (congestive) heart failure wan - Cellulitis and acute lymphangitis of other parts of limb - left hand wan - Dyspnea wan - Tachycardia, unspecified wan - FPC (current) use of anticoagulants wan - Diastolic (congestive) heart failure wan Forms: - Medication Reconciliation Form wan - SBAR form wan Signatures: Dispatcher [employer] EDMS Rosa Lizama RN RN mw Anderson, Corey, MD MD cha Baxter, Heather, RN RN Kermit Burgos RN RN as6 Orquidea Harrison PA-C PAAliya [id number] Corrections: (The following items were deleted from the chart) 20:58 20:56 Lasix (furosemide) 20 mg IVP once; give over 2 minutes ordered. [facility] 22:08 21:26 Chest For Pe Angio ordered. EDVA EDMS 22:52 21:15 wan
--- NOTE | 2022-09-28 21:16 | ER ---
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 Pt was inpatient for UTI, hb discharged today. BP 179/100, HR 100, SpO2 98% on RA. Coronavirus screen: At this time, the client does not indicate any symptoms associated with coronavirus-19. Ebola Screen: No symptoms or risks identified at this time. Initial Sepsis Screen: Does the patient meet any 2 criteria? No. Patient's initial sepsis screen is negative. Does the patient have a suspected source of infection? No. Patient's initial sepsis screen is negative. Risk Assessment: Do you want to hurt yourself or someone else? Patient reports no desire to harm self or others. Onset of symptoms was September 28, 2022. 19:09 Method Of Arrival: EMS: [facility] hb 19:09 Acuity: ISELA 3 hb Historical: - Allergies: 19:11 NKA; hb - PMHx: 19:11 Atrial Fib; Glaucoma; Osteopenia; osteoarthritis of spine; Hypertension; colon cancer; hb Cataracts; CHF; NOSE BLEEDS; Osteoporosis; TIA; - PSHx: 19:11 spine; Total abdominal hysterectomy; hb - Immunization history:: Adult Immunizations up to date. - Social history:: Smoking status: Patient denies any tobacco usage or history of. Screenin:31 Abuse screen: Denies threats or abuse. Denies injuries from another. Nutritional as6 screening: No deficits noted. Tuberculosis screening: No symptoms or risk factors identified. 23:30 [facility] ED Fall Risk Assessment (Adult) History of falling in the last 3 months, as6 including since admission No falls in past 3 months (0 pts) Confusion or Disorientation No (0 pts) Intoxicated or Sedated No (0 pts) Impaired Gait No (0 pts) Mobility Assist Device Used Yes (1 pt) Altered Elimination No (0 pt) Score/Fall Risk Level 0 - 2 = Low Risk. Fall Risk IV access (20 points). Total Puri Fall Scale indicates No Risk (0-24 pts). Assessment: 19:30 General: Appears in no apparent distress. Behavior is calm, cooperative. Pain: Denies as6 pain. Neuro: Level of Consciousness is awake, alert, obeys commands, Oriented to person, place, time, situation. Cardiovascular: Reports shortness of breath. Respiratory: Reports shortness of breath Respiratory effort is even, unlabored. Derm: redness and swelling to right hand. Vital Signs: 19:09 BP 153 / 100; Pulse 100; Resp 20; Temp 98.2(O); Pulse Ox 97% on R/A; Weight 74.84 kg; hb Height 5 ft. 5 in. (165.10 cm); Pain 0/10; 20:31 BP 154 / 103; Pulse 89; Resp 19 S; Pulse Ox 94% on 2 lpm NC; as6 22:00 BP 158 / 108; Pulse 86; Resp 15 S; Pulse Ox 99% on 2 lpm NC; as6 23:00 BP 129 / 79; Pulse 96; Resp 16 S; Pulse Ox 100% on 2 lpm NC; as6 19:09 Body Mass Index 27.46 (74.84 kg, 165.10 cm) hb ED Course: 19:09 Patient arrived in ED. hb 19:11 Triage completed. hb 19:11 Arm band placed on. hb 19:42 Td Yancey MD is Attending Physician. wan 19:58 Kermit uBrgos, RN is Primary Nurse. as6 20:06 XRAY Chest (1 view) In Process Unspecified. EDMS 20:20 Inserted saline lock: 20 gauge in right forearm, using aseptic technique. Blood as6 collected. 20:30 Troponin HS Sent. as6 20:30 PT-INR Sent. as6 20:30 NT PRO-BNP Sent. as6 20:30 Magnesium Sent. as6 20:30 LFT's Sent. as6 20:30 CBC with Diff Sent. as6 20:30 Basic Metabolic Panel Sent. as6 20:30 Blood Culture Adult (2) Sent. as6 20:30 D-Dimer Sent. as6 20:30 Lactate w/ 2H reflex if indic. Sent. as6 20:30 COVID-19/FLU A+B Sent. as6 20:30 Lipase Sent. as6 21:06 Dex Melvin is Hospitalizing Provider. wan 21:45 Inserted saline lock: 18 gauge in right EJ, using aseptic technique. as6 22:16 US Extremity Venous W Compression Reinier In Process Unspecified. EDMS 23:31 Placed in gown. Bed in low position. Call light in reach. Side rails up X2. as6 23:31 No provider procedures requiring assistance completed. Patient admitted, IV remains in as6 place. Administered Medications: 20:55 Discontinued: NS 0.9% 1000 ml IV at 125 ml/hr continuous wan 20:30 Drug: NS 0.9% 500 ml Route: IV; Rate: bolus; Site: right forearm; as6 23:43 Follow up: Response: No adverse reaction; IV Status: Completed infusion; IV Intake: as6 500ml 20:30 Drug: NS 0.9% 1000 ml Route: IV; Rate: 125 ml/hr; Site: right forearm; as6 23:43 Follow up: Response: No adverse reaction; IV Status: Order to discontinue infusion; IV as6 Intake: 100ml 20:58 CANCELLED (Duplicate Order): Lasix (furosemide) 20 mg IVP once; give over 2 minutes wan 22:19 Drug: Zosyn (piperacillin-tazobactam) 3.375 grams Route: IVPB; Infused Over: 60 mins; as6 Site: right jugular; 23:42 Follow up: Response: No adverse reaction; IV Status: Completed infusion; IV Intake: as6 100ml 22:19 Drug: SOLU-Medrol (methylPrednisoLONE) 125 mg Route: IVP; Site: right jugular; as6 23:42 Follow up: Response: No adverse reaction as6 22:19 Drug: Xopenex (levalbuterol) 2.5 mg Route: Inhalation; as6 23:42 Follow up: Response: No adverse reaction as6 22:19 Drug: AtroVENT (ipratropium) Aerosol 0.5 mg Route: Inhalation; as6 23:42 Follow up: Response: No adverse reaction as6 22:19 Drug: Lasix (furosemide) 40 mg Route: IVP; Site: right jugular; as6 23:42 Follow up: Response: No adverse reaction as6 Medication: 23:30 VIS not applicable for this client. as6 Intake: 23:42 IV: 100ml; Total: 100ml. as6 23:43 IV: 500ml; Total: 600ml. as6 23:43 IV: 100ml; Total: 700ml. as6 Outcome: 21:15 Decision to Hospitalize by Provider. wan 23:30 Admitted to Med/surg as6 23:30 Condition: stable 23:30 Instructed on the need for admit. 23:43 Patient left the ED. as6 Signatures: Dispatcher [employer] EDTd Munoz MD MD cha Baxter, Heather, RN RN Kermit Burgos RN RN as6
[2022-09-28 21:22] LABS: SARS-COV-2 RT PCR NEGATIVE (NEGATIVE)
[2022-09-28] MEDS ORDERED: FUROSEMIDE 40 MG/4 ML VIAL ONE (21:55)
[2022-09-28] MEDS ORDERED: LEVALBUTEROL 1.25 MG/3 ML NEB ONE (21:55)
[2022-09-28] MEDS ORDERED: METHYLPREDNISOLONE 125 MG INJ ONE (21:55)
[2022-09-28] MEDS ORDERED: IPRATROPIUM BROM 0.5MG/2.5ML ONE (21:56)
[2022-09-28] MEDS ORDERED: NA CHLORIDE 0.9% 100 ML IV ONE (22:07)
[2022-09-28] MEDS ORDERED: PIPERACIL/TAZO 3.375 GM VIAL IV ONE (22:07)
--- NOTE | 2022-09-28 22:32 | RAD REPORT ---
EXAM DESCRIPTION: US - Extrem Venous W Compress Reinier - 09/28/2022 10:14 pm CLINICAL HISTORY: Pain Bilateral leg edema and swelling. COMPARISON: <Comparisons> TECHNIQUE: Real-time sonographic interrogation of the left and right lower extremity deep venous sys tems was performed. FINDINGS: Normal compressibility, flow augmentation, phasic flow and spontaneous flow is identified in both the left and right lower extremity deep venous systems. IMPRESSION: No sonographic evidence of left or right lower extremity deep venous thrombosis.
--- NOTE | 2022-09-28 22:42 | P.HP ---
Certification for Inpatient Patient admitted to: Inpatient With expected LOS: >2 Midnights Patient will require the following post-hospital care: None Practitioner: I am a practitioner with admitting privileges, knowledge of patient current condition, hospital course, and medical plan of care. 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 Patient was just discharged from this facility today after treatment of UTI and left hand cellulitus. Her labs are significant for sodium 129, chloride 97, T bili 1.1, AST 38, alk phos 159, BNP 9800, D-dimer 1447. Chest xray showed "Mild bilateral pulmonary opacities are present, greatest in the right lung base likely representing infection/ developing pneumonia. Another possibility would be mild CHF. The heart is moderately enlarged. No displaced fractures." Venous ultrasound negative for DVT. CT chest angio was not completed due to lack of IV access and low suspicion for PE given daily xarelto use. She was given breathing treatments, antibiotics, and lasix in the ED. Patient is admitted for further management. Allergies No Known Allergies Allergy (Verified 06/23/18 15:15) Home Medications: Acetaminophen [Tylenol Extra Strength] 1 tab PO Q8HP PRN 12/16/17 Atorvastatin Calcium [Lipitor] 40 mg PO BEDTIME 12/16/17 Rivaroxaban [Xarelto] 15 mg PO DAILY AT SUPPER 06/23/18 Potassium Chloride 30 mg PO TID 06/11/21 metOLazone [Zaroxolyn] 2.5 mg PO SEECOM 06/11/21 Linagliptin [Tradjenta] 5 mg PO DAILY 08/27/21 Olmesartan Medoxomil 40 mg PO DAILY PRN 01/25/22 Calcium Carbonate/Vitamin D3 [Caltrate 600 + D Soft Chew Tab] 1 each PO DAILY 05/01/22 Bimatoprost [Lumigan Opthalmic Drops*] 1 drop EACH EYE BEDTIME 05/04/22 Brimonidine Tartrate [Alphagan P] 1 drop EACH EYE Q12HP 05/04/22 Latanoprost/Pf [Latanoprost 0.005% Eye Drop] 1 drop EACH EYE BEDTIME 05/04/22 Allopurinol 300 mg PO DAILY 09/29/22 Cholecalciferol (Vitamin D3) [Vitamin D3] 5,000 unit PO BID 09/29/22 Cyanocobalamin (Vitamin B-12) [Vitamin B-12] 2,500 mcg SL DAILY 09/29/22 Metoprolol Tartrate [Lopressor] 25 mg PO BID 09/29/22 Polyethylene Glycol 3350 [Miralax] 17 gm PO DAILYPRN PRN 09/29/22 cloNIDine HCL [Clonidine HCl] 0.1 mg PO Q6HP PRN 09/29/22 - Past Medical/Surgical History Diabetic: Yes -: HTN -: A. FIB -: CATARACTS -: COLON CANCER -: CHF -: GLAUCOMA -: OSTEOARTHRITIS of SPINE -: TIA -: NIDDM -: 2011 colon resection -: 2006 back surgery rods and screws -: 1994 hysterectomy -: 2007 bilateral cateract surgery -: CARDIOVERSION X2 Psychosocial/ Personal History: Patient is . - Family History Father -: Stroke Notes: cerebral hemorrage Mother -: Cancer - Social History Smoking Status: Former smoker Alcohol use: No CD- Drugs: No Caffeine use: Yes Place of Residence: Home Review of Systems Respiratory: Cough, Shortness of Breath, Wheezing Physical Examination - Vital Signs Temperature: 98.2 F Blood Pressure: 158/108 Pulse: 86 Respirations: 15 Pulse Ox (%): 99 (2L NC) - Physical Exam General: Alert, In no apparent distress HEENT: Atraumatic, PERRLA, EOMI, Sclerae nonicteric Neck: Supple, 2+ carotid pulse no bruit Respiratory: Rhonchi/gurgles Cardiovascular: Regular rate/rhythm, Normal S1 S2 Gastrointestinal: Normal bowel sounds, No tenderness Musculoskeletal: No tenderness Integumentary: No rashes Neurological: Normal speech, Normal strength at 5/5 x4 extr, Normal tone, Normal affect - Studies Laboratory Data (last 24 hrs) 09/28/22 20:23: PT 39.4 H, INR 3.58 09/28/22 20:23: WBC 10.70, Hgb 14.1, Hct 42.8, Plt Count 320 09/28/22 20:23: Sodium 129 L D, Potassium 4.7 D, BUN 21 H, Creatinine 0.86, Glucose 213 H, Magnesium 2.1, Total Bilirubin 1.1 H, AST 38 H, ALT 45, Alkaline Phosphatase 159 H, Lipase 110 Assessment and Plan - Problems (Diagnosis) (1) Atrial fibrillation Current Visit: Yes Status: Chronic Qualifiers: Atrial fibrillation type: paroxysmal Qualified Code(s): I48.0 - Paroxysmal atrial fibrillation (2) CHF (congestive heart failure) Current Visit: Yes Status: Chronic Qualifiers: Heart failure type: diastolic Heart failure chronicity: acute on chronic Qualified Code(s): I50.33 - Acute on chronic diastolic (congestive) heart failure (3) GERD (gastroesophageal reflux disease) Current Visit: Yes Status: Chronic Qualifiers: Esophagitis presence: without esophagitis Qualified Code(s): K21.9 - Gastro-esophageal reflux disease without esophagitis (4) Hyperlipidemia Current Visit: Yes Status: Chronic Qualifiers: Hyperlipidemia type: unspecified Qualified Code(s): E78.5 - Hyperlipidemia, unspecified (5) Hypertension Current Visit: Yes Status: Chronic Qualifiers: Hypertension type: primary hypertension Qualified Code(s): I10 - Essential (primary) hypertension (6) Diabetes Current Visit: Yes Status: Chronic Qualifiers: Diabetes mellitus type: type 2 Diabetes 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 Continue diuresis with IV lasix. Monitor intake and output. Fluid restriction. Urine culture done 10 days ago growing ecoli with sensitivity to rocephin. Continue treatment. Supportive measures with supplemental O2, breathing treatments. ACHS accu checks with mild sliding scale and diabetic diet. Cardiology consulted. Echo ordered. Monitor and replete electrolytes per protocol. Reconcile and continue home medications. Xarelto for VTE prophylaxis. DNR. Discharge Plan: Home Plan to discharge in: Greater than 2 days - Advance Directives Does patient have a Living Will: Yes Does patient have a Durable POA for Healthcare: Yes - Code Status/Comfort Care Code Status Assessed: Yes Code Status: Do Not Attempt Resuscitat Physician Review: Patient Assessed, Agree with Above Assessment and Plan Critical Care: No Time Spent Managing Pts Care (In Minutes): 50
[2022-09-28] MEDS ORDERED: ONDANSETRON 4 MG/2 ML VIAL IV PRN (23:15)
[2022-09-28] MEDS ORDERED: ALBUTEROL 2.5 MG/3 ML NEB SOL NEB PRN (23:15)
[2022-09-28 23:49] VITALS: BMI 25.1
[2022-09-29 00:37] LABS: Specific Gravity 1.007 (1.005-1.030); Urine Bilirubin NEGATIVE (Negative); Urine Blood Negative (Negative); Urine Clarity Clear (Clear); Urine Color Colorless (Yellow); Urine Glucose NEGATIVE (Negative); Urine Protein NEGATIVE (Negative); Urine Urobilinogen Normal (Normal)
[2022-09-29 03:44] LABS: Absolute Lymphocytes (CBC) 0.4 K/uL (0.7-4.9); Hematocrit 39.4 % (36.0-45.0); Lymphocytes % 4.9 % (15.3-44.8); MCV 99.1 fL (80-100); MPV 8.6 fL (7.6-11.3); RBC Red Blood Cell Count 3.98 M/uL (3.86-4.86)
[2022-09-29 04:01] LABS: Albumin 2.4 g/dL (3.4-5.0); Bilirubin Total 1.1 mg/dL (0.2-1.0); Phosphorus 3.2 mg/dL (2.5-4.9); Potassium 3.8 mmol/L (3.5-5.1); Protein, Total 6.5 g/dL (6.4-8.2)
[2022-09-29] MEDS ORDERED: cloNIDine HCL 0.1 MG TAB PO PRN (04:17)
[2022-09-29] MEDS: FUROSEMIDE 40 MG/4 ML VIAL IV SCH ×2 (08:40→16:00)
[2022-09-29] MEDS: METOPROLOL TAR 25 MG TAB PO SCH ×2 (08:40→21:11)
[2022-09-29] MEDS: CEFTRIAXONE 1,000 MG in NA CHLORIDE 0.9% 50 ML IVPB SCH (08:41)
[2022-09-29] MEDS ORDERED: POTASSIUM CL SA 10 MEQ TAB PO ONE (09:00)
[2022-09-29] MEDS ORDERED: ALBUTEROL 2.5 MG/3 ML NEB SOL NEB PRN (12:00)
--- NOTE | 2022-09-29 12:39 | P.PN ---
Subjective Date of Service: 09/29/22 Primary Care Provider: Jocelyn Chief Complaint: CHF Exacerbation Patient states she feels better today compared to yesterday. She is maintained on 2 L oxygen by nasal cannula. No recorded fever. She is tolerating diet. Noted swollen joints of both hands. Physical Examination - Vital Signs Temperature: 97.9 F Blood Pressure: 159/96 Pulse: 98 Respirations: 16 Pulse Ox (%): 98 - Studies Laboratory Data (last 24 hrs) 09/28/22 20:23: PT 39.4 H, INR 3.58 09/28/22 20:23: WBC 10.70, Hgb 14.1, Hct 42.8, Plt Count 320 09/28/22 20:23: Sodium 129 L D, Potassium 4.7 D, BUN 21 H, Creatinine 0.86, Glucose 213 H, Magnesium 2.1, Total Bilirubin 1.1 H, AST 38 H, ALT 45, Alkaline Phosphatase 159 H, Lipase 110 Assessment And Plan - Current Problems (Diagnosis) (1) Acute diastolic heart failure Current Visit: Yes Status: Acute (2) Acute respiratory failure with hypoxia Current Visit: Yes Status: Acute (3) Acute gout Current Visit: Yes Status: Acute (4) Diabetes Current Visit: Yes Status: Chronic Qualifiers: Diabetes mellitus type: type 2 Diabetes mellitus 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 Neck: Supple, JVD not distended. Respiratory: Mild bibasilar crackles, adequate breath sounds bilaterally. Cardiovascular: Regular rate/rhythm, Normal S1 S2 Gastrointestinal: Normal bowel sounds, No tenderness Musculoskeletal: Proximal and distal interphalangeal joints of all fingers of both hands swollen and tender to palpation. Integumentary: No rashes Neurological: Normal speech, Normal strength at 5/5 x4 extr, Normal tone, Normal affect Plan: Continue IV Lasix for CHF. Obtain echocardiogram Continue metoprolol for A. fib and adjust dose to target heart rate of 70 at rest if her BP will tolerate. Troponin negative. Wean oxygen. Continue allopurinol for gout. Add prednisone for acute gout. Monitor and optimize electrolytes. Insulin sliding scale for glucose management.
[2022-09-29] MEDS ORDERED: POLYETHYL GLY 3350 17 GM/DOSE PO PRN (12:43)
[2022-09-29] MEDS ORDERED: GLUCAGON 1 MG/VIAL IM PRN (12:46)
[2022-09-29] MEDS ORDERED: DEXTROSE 10%-WATER 500 ML IV BAG IV PRN (13:01)
[2022-09-29] MEDS ORDERED: HOME MED [BRIMONIDINE TARTRATE 0.15% 5 ML] OPTH SCH (13:15)
[2022-09-29] MEDS: allopurinoL 300 MG TAB PO SCH (13:22)
[2022-09-29] MEDS: POTASSIUM CL SA 10 MEQ TAB PO SCH ×2 (14:00→21:00)
[2022-09-29] MEDS: INSULIN -REGULAR HUMAN 50 UNIT/0.5 ML ML SQ SCH ×2 (15:59→21:00)
[2022-09-29] MEDS: RIVAROXABAN 15 MG TABLET PO SCH (16:00)
[2022-09-29] MEDS ORDERED: HOME MED [BIMATOPROST OPHTH DROPS/2.5 ML BTL] OPTH SCH (21:00)
[2022-09-29] MEDS: LATANOPROST 0.005% OPTH SCH (21:00)
[2022-09-29] MEDS: EYE OPTH SCH (21:00)
[2022-09-29] MEDS: VITAMIN D 5,000 UNIT CAP PO SCH (21:11)
[2022-09-29] MEDS: ATORVASTATIN 40 MG TAB PO SCH (21:11)
[2022-09-30 04:10] LABS: Absolute Lymphocytes (CBC) 0.6 K/uL (0.7-4.9); Hematocrit 39.1 % (36.0-45.0); Lymphocytes % 6.6 % (15.3-44.8); MPV 8.9 fL (7.6-11.3); RBC Red Blood Cell Count 3.96 M/uL (3.86-4.86)
[2022-09-30] MEDS ORDERED: BENZONATATE 100 MG CAP PO PRN (04:21)
[2022-09-30 04:28] LABS: Albumin 2.3 g/dL (3.4-5.0); Bilirubin Total 0.6 mg/dL (0.2-1.0); Potassium 3.5 mmol/L (3.5-5.1); Protein, Total 6.2 g/dL (6.4-8.2)
[2022-09-30] MEDS: INSULIN -REGULAR HUMAN 50 UNIT/0.5 ML ML SQ SCH ×4 (08:32→21:14)
[2022-09-30] MEDS: predniSONE 20 MG TAB PO SCH (08:33)
[2022-09-30] MEDS: METOPROLOL TAR 25 MG TAB PO SCH ×2 (08:33→21:14)
[2022-09-30] MEDS: allopurinoL 300 MG TAB PO SCH (08:34)
[2022-09-30] MEDS: VITAMIN D 5,000 UNIT CAP PO SCH ×2 (08:34→21:13)
[2022-09-30] MEDS: CYANOCOBALAMIN 2500 MCG SL SCH (08:35)
[2022-09-30] MEDS: HOME MED 1 EA UNK (Linagliptin [Tradjenta] 5 MG Tablet) PO SCH (08:35)
[2022-09-30] MEDS: FUROSEMIDE 40 MG/4 ML VIAL IV SCH (08:35)
[2022-09-30] MEDS: CEFTRIAXONE 1,000 MG in NA CHLORIDE 0.9% 50 ML IVPB SCH (08:35)
[2022-09-30] MEDS ORDERED: METOLAZONE 2.5 MG TABLET PO SCH (09:00)
[2022-09-30] MEDS ORDERED: POTASSIUM CL SA 10 MEQ TAB PO ONE (09:00)
[2022-09-30] MEDS: POTASSIUM CL SA 10 MEQ TAB PO SCH ×3 (09:00→21:00)
--- NOTE | 2022-09-30 14:19 | P.PN ---
Subjective Date of Service: 09/30/22 Primary Care Provider: Jocelyn Chief Complaint: CHF Exacerbation Patient states she continues to feel better but not back to baseline She is currently tolerating 2 L oxygen by nasal cannula. She is tolerating diet. She states that her joint swellings are improving. Physical Examination - Vital Signs Temperature: 97.2 F Blood Pressure: 126/68 Pulse: 97 Respirations: 18 Pulse Ox (%): 98 Assessment And Plan - Current Problems (Diagnosis) (1) Acute diastolic heart failure Current Visit: Yes Status: Acute (2) Acute respiratory failure with hypoxia Current Visit: Yes Status: Acute (3) Acute gout Current Visit: Yes Status: Acute (4) Diabetes Current Visit: Yes Status: Chronic Qualifiers: Diabetes mellitus type: type 2 Diabetes mellitus manager intermediate insulin use: without manager intermediate use Diabetes mellitus complication status: with hyperglycemia Qualified Code(s): E11.65 - Type 2 diabetes mellitus with hyperglycemia (5) Hypertension Current Visit: Yes Status: Chronic Qualifiers: Hypertension type: primary hypertension Qualified Code(s): I10 - Essential (primary) hypertension (6) Pneumonia Current Visit: Yes Status: Acute - Plan Physical Exam General: Alert, In no apparent distress HEENT: Sclerae nonicteric, oxygen by nasal cannula. Neck: Supple, JVD not distended. Respiratory: Mild bibasilar crackles, adequate breath sounds bilaterally. Cardiovascular: Regular rate/rhythm, Normal S1 S2 Gastrointestinal: Normal bowel sounds, No tenderness Musculoskeletal: Proximal and distal interphalangeal joints of all fingers of both hands swollen and tender to palpation. Integumentary: No rashes Neurological: Normal speech, Normal strength at 5/5 x4 extr, Normal tone, Normal affect Plan: Continue IV Lasix for CHF for 1 more day and transition to oral Lasix. Resumed her home dose metolazone. Echocardiogram is pending. Continue metoprolol for A. fib and adjust dose to target heart rate of 70 at rest if her BP will tolerate. Troponin negative. Continue bronchodilators, oral prednisone Wean oxygen. Continue allopurinol for gout. Monitor and optimize electrolytes. Insulin sliding scale for glucose management. Rocephin and Levaquin for pneumonia. Physician Review: Patient Assessed, Agree with Above Assessment and Plan
[2022-09-30] MEDS ORDERED: Levofloxacin 750mg IV 750 MG/150 ML BAG IV SCH ×2 (15:00)
--- NOTE | 2022-09-30 15:55 | EKG ---
Test Date: 2022-09-28 Test Time: 19:30:27 Parts Sales Counterperson: MEASUREMENT RESULTS: Intervals: Rate: 125 VA: 208 QRSD: 82 QT: 352 QTc: 508 [place]: P: VA: 208 QRS: 9 T: -5 INTERPRETIVE STATEMENTS: Sinus rhythm Low voltage QRS Cannot rule out Anterior infarct, age undetermined ST & T wave abnormality, consider inferior ischemia Abnormal ECG Electronically Signed On 09-30-22 15:54:28 INSTRUMENTATION ENGINEER by Gus Rivera
[2022-09-30] MEDS: RIVAROXABAN 15 MG TABLET PO SCH (16:39)
--- NOTE | 2022-09-30 16:46 | CON ---
Date of Consultation: 09/29/2022 Reason For Consultation: CHF exacerbation. History Of Present Illness: This is an 81-year-old female with history of hypertension, diabetes, dy slipidemia, diastolic heart failure, atrial fibrillation, colon cancer, and chronic kidney disease, p resented with shortness of breath, lower extremity edema and orthopnea. Denies cough, fever or nause a, vomiting, or diarrhea. No other complaints. Past Medical History: As outlined above in the HPI. Medications: Refer to reconciliation sheet for detailed list. Allergies: NO KNOWN DRUG ALLERGIES. Family History: No premature coronary artery disease or cancer. Social History: She does not smoke or drink. Does not use any drugs. Review of Systems: All systems reviewed and they were negative except what mentioned in HPI. Physical Examination: Vital Signs: Showed a temperature of 97.5, pulse 98, breathing at 16, blood pressure 144/88, saturat ing 98%. General: Pleasant elderly female, no apparent distress. Head and Neck: Pupils are equal, reactive to light. Intact eye movements. Positive JVD. No cervic al lymphadenopathy. Neck is supple. Thyroid is not enlarged. Lungs: Decreased breathing sounds with faint crackles in the bases. No accessory muscle use or musc le retraction. Heart: Regular rate and rhythm. No extra sounds. Abdomen: Soft, nontender. Bowel sounds positive. Extremities: Edema bilaterally. No clubbing or cyanosis. Intact pulses. Skin: No rash. Neurologic: Alert, awake, oriented x3. No acute focal deficits appreciated. Lymph Nodes: No cervical or axillary lymphadenopathy. Investigations: BUN 22, creatinine 0.75. The troponins are negative. NT proBNP on admission was 985 2 and hemoglobin is 13.1, white blood cell count 7.2. Assessment And Recommendations: 1.Acute on chronic diastolic heart failure exacerbation. Agree with diuresis; however, carefully mo nitor BUN, creatinine, electrolytes, and trend troponin levels. 2.Hypertension. Resume home medication and adjust dose for systolic blood pressure less than 140. SR/MODL Voice ID: [id number] Report ID: [id number]
--- NOTE | 2022-09-30 17:01 | PN ---
Date of Progress Note: 09/30/2022 Subjective: Seen by bedside. She continues to improve. Review of Systems: No chest pain, shortness of breath, orthopnea, cough. No nausea, vomiting, diarrhea. No abdominal p ain. No dysuria, polyuria, or urinary urgency. All other systems reviewed and are negative. Physical Examination: Vital Signs: Reviewed. Head and Neck: Pupils are equal, reactive to light. Intact eye movements. No JVD. No cervical lym phadenopathy. Neck is supple. Thyroid is not enlarged. Lungs: Clear to auscultation bilaterally. No rhonchi, wheezing, or crackles. No accessory muscle u se. Heart: Irregularly irregular. No extra sounds. Abdomen: Soft, nontender. Bowel sounds positive. No organomegaly. No masses or hernia. No rigidi ty or rebound. Extremities: No edema, clubbing, or cyanosis. Intact pulses. Skin: No rash. Neurologic: Alert, awake, oriented x3. No acute focal deficits appreciated. Investigations: Hemoglobin 13, white blood cell count is 8.3 and BUN today is 36, which quite a jump . Creatinine is still normal. Assessment And Recommendations: 1.Acute on chronic diastolic heart failure, appears to be euvolemic now and BUN started to go up. H old IV Lasix and start on oral Lasix 40 mg by mouth daily to start tomorrow. Monitor BUN, creatinine , electrolytes. 2.Hypertension. Blood pressure is improving. Continue current management. 3.Atrial fibrillation, rate is controlled, on Xarelto. Continue current management. SR/MODL Voice ID: [id number] Report ID: [id number]
[2022-09-30] MEDS: LATANOPROST 0.005% OPTH SCH (21:00)
[2022-09-30] MEDS: EYE OPTH SCH (21:00)
[2022-09-30] MEDS: ATORVASTATIN 40 MG TAB PO SCH (21:13)
[2022-10-01 03:44] LABS: Absolute Lymphocytes (CBC) 0.8 K/uL (0.7-4.9); Hematocrit 39.5 % (36.0-45.0); Lymphocytes % 9.1 % (15.3-44.8); MCV 98.1 fL (80-100); MPV 8.5 fL (7.6-11.3); RBC Red Blood Cell Count 4.03 M/uL (3.86-4.86)
[2022-10-01 03:56] LABS: Albumin 2.4 g/dL (3.4-5.0); Bilirubin Total 0.5 mg/dL (0.2-1.0); Potassium 3.4 mmol/L (3.5-5.1); Protein, Total 6.4 g/dL (6.4-8.2)
[2022-10-01] MEDS: INSULIN -REGULAR HUMAN 50 UNIT/0.5 ML ML SQ SCH ×4 (07:30→21:01)
[2022-10-01] MEDS: POTASSIUM CL SA 10 MEQ TAB PO SCH ×3 (07:55→20:59)
[2022-10-01] MEDS: CYANOCOBALAMIN 2500 MCG SL SCH (07:55)
[2022-10-01] MEDS ORDERED: CEFTRIAXONE 1000 MG/VIAL ONE (08:09)
[2022-10-01] MEDS ORDERED: NA CHLORIDE 0.9% 50 ML IV ONE (08:11)
[2022-10-01] MEDS: predniSONE 20 MG TAB PO SCH (08:15)
[2022-10-01] MEDS: VALSARTAN 160 MG TAB PO SCH (08:15)
[2022-10-01] MEDS: allopurinoL 300 MG TAB PO SCH (08:15)
[2022-10-01] MEDS: VITAMIN D 5,000 UNIT CAP PO SCH ×2 (08:15→21:00)
[2022-10-01] MEDS: METOPROLOL TAR 25 MG TAB PO SCH (08:15)
[2022-10-01] MEDS: CEFTRIAXONE 1,000 MG in NA CHLORIDE 0.9% 50 ML IVPB SCH (08:16)
[2022-10-01] MEDS: HOME MED 1 EA UNK (Linagliptin [Tradjenta] 5 MG Tablet) PO SCH (08:29)
[2022-10-01] MEDS ORDERED: POTASSIUM CL SA 10 MEQ TAB PO ONE (09:00)
--- NOTE | 2022-10-01 12:25 | P.PN ---
Subjective Date of Service: 10/01/22 Primary Care Provider: Jocelyn Chief Complaint: CHF Exacerbation Patient states she feels better She is currently on 1 L of oxygen by nasal cannula with oxygen saturation of 98%. She is tolerating diet. Physical Examination - Vital Signs Temperature: 97.1 F Blood Pressure: 147/101 Pulse: 116 Respirations: 14 Pulse Ox (%): 98 Assessment And Plan - Current Problems (Diagnosis) (1) Acute diastolic heart failure Current Visit: Yes Status: Acute (2) Acute respiratory failure with hypoxia Current Visit: Yes Status: Acute (3) Acute gout Current Visit: Yes Status: Acute (4) Diabetes Current Visit: Yes Status: Chronic Qualifiers: Diabetes mellitus type: type 2 Diabetes mellitus long-term insulin use: without roasterman use Diabetes mellitus complication status: with hyperglycemia Qualified Code(s): E11.65 - Type 2 diabetes mellitus with hyperglycemia (5) Hypertension Current Visit: Yes Status: Chronic Qualifiers: Hypertension type: primary hypertension Qualified Code(s): I10 - Essential (primary) hypertension (6) Pneumonia Current Visit: Yes Status: Acute - Plan Physical Exam General: Alert, In no apparent distress HEENT: Sclerae nonicteric, oxygen by nasal cannula. Neck: Supple, JVD not distended. Respiratory: Mild bibasilar crackles, worse on the left, adequate breath sounds bilaterally. Cardiovascular: Regular rate/rhythm, Normal S1 S2 Gastrointestinal: Normal bowel sounds, No tenderness Musculoskeletal: Proximal and distal interphalangeal joints of all fingers of both hands swelling improving. Integumentary: No rashes Neurological: Normal speech, Normal strength at 5/5 x4 extr, Normal tone, Normal affect Plan: Patient transitioned to oral lasix. Discontinue metolazone due to rising BUN. Echocardiogram is pending. Continue metoprolol for A. fib. Titrate dose for heart rate control. Troponin negative. Continue bronchodilators, oral prednisone Wean oxygen. Continue allopurinol for gout. Monitor and optimize electrolytes. Insulin sliding scale for glucose management. Continue Levaquin for pneumonia.
--- NOTE | 2022-10-01 14:44 | ECHO ---
HEIGHT: 5 ft 5 in WEIGHT: 151 lb 0 oz DATE OF STUDY: 10/01/[address]: Orquidea Harrison 2-DIMENSIONAL: YES M.MODE: YES DOPPLER: YES COLOR FLOW: YES TDS: NO PORTABLE: YES DEFINITY: NO BUBBLE STUDY: NO DIAGNOSIS: CONGESTIVE HEART FAILURE, ATRIAL FIBRILLATION, ELEVATED DIMER CARDIAC HISTORY: CATHERIZATION: NO SURGERY: NO PROSTHETIC VALVE: NO PACEMAKER: NO MEASUREMENTS (cm) DIASTOLIC (NORMALS) SYSTOLIC (NORMALS) IVSd 1.1 (0.6-1.2) LA Diam 4.3 (1.9-4.0) LVEF 35-40% LVIDd 3.9 (3.5-5.7) LVIDs 3.4 (2.0-3.5) %FS 15% LVPWd 1.1 (0.6-1.2) Ao Diam 2.6 (2.0-3.7) 2 DIMENSIONAL ASSESSMENT: RIGHT ATRIUM: ENLARGED LEFT ATRIUM: ENLARGED RIGHT VENTRICLE: NORMAL LEFT VENTRICLE: NORMAL TRICUSPID VALVE: MITRAL VALVE: PULMONIC VALVE: NORMAL AORTIC VALVE: PERICARDIAL EFFUSION: NONE AORTIC ROOT: NORMAL LEFT VENTRICULAR WALL MOTION: MODERATE GLOBAL HYPOKINESIS. DOPPLER/COLOR FLOW: SEE BELOW. COMMENTS: 1. MODERATELY DEPRESSED LEFT VENTRICULAR EJECTION FRACTION 35-40%. 2. MODERATE GLOBAL HYPOKINESIS. 3. SEVERE TRICUSPID REGURGITATION. 4. MODERATE TO SEVERE MITRAL REGURGITATION. 5. MILD AORTIC REGURGITATION. 6. RIGHT VENTRICULAR SYSOTLIC PRESSURE IS 55-60 mmHg, MODERATE PULMONARY HYPERTENSION. TECHNOLOGIST: Toshia ANDINO
[2022-10-01] MEDS: FUROSEMIDE 40 MG TABLET PO SCH (17:11)
[2022-10-01] MEDS: RIVAROXABAN 15 MG TABLET PO SCH (17:11)
[2022-10-01] MEDS ORDERED: HYDRALAZINE HCL 20 MG/ML VIAL IV PRN (17:37)
[2022-10-01] MEDS: METOPROLOL TAR 50 MG TAB PO SCH (20:59)
[2022-10-01] MEDS: ATORVASTATIN 40 MG TAB PO SCH (20:59)
[2022-10-01] MEDS: CALCIUM CARB 500MG/VIT D 200 IU TAB PO SCH (20:59)
[2022-10-01] MEDS: LATANOPROST 0.005% OPTH SCH (21:00)
[2022-10-01] MEDS: TIMOLOL MALEAT OPTH SCH (21:00)
[2022-10-01] MEDS: DORZOLAMIDE TIMOLOL EYE OPTH SCH (21:00)
[2022-10-01] MEDS: EYE OPTH SCH (21:00)
[2022-10-01] MEDS: DORZOLAMIDE HCL OPTH SCH (21:00)
[2022-10-01] MEDS: ACETAMINOPHEN 500 MG TAB PO PRN (21:10)
--- NOTE | 2022-10-01 22:29 | P.PN ---
Date of Service: 10/02/22 Subjective: improving, weaned off O2 last night denies chest pain, continues with some dyspnea no new./worsening symptoms. minimal leg swelling ROS: A complete review of systems was performed and is negative except as mentioned above Physical Exam General: Alert, In no apparent distress HEENT: Sclerae nonicteric, normal conjunctiva Respiratory: Mild bibasilar crackles, non-labored respirations on room air Cardiovascular: Regular rate/rhythm, Normal S1 S2 Gastrointestinal: soft, nontender, nondistended Musculoskeletal: Proximal and distal interphalangeal joints of all fingers of both hands minimal swelling L>R Neurological: Normal speech, Normal strength at 5/5 x4 extr, Normal affect vitals reviewed Problem List acute CHF exacerbation, diastolic; new moderate-severe mitral regurgitation, new severe tricuspid regurgitation, new acute hypoxemic respiratory failure secondary to diastolic CHF; possible pneumonia acute gout NIDDM2 HTN Afib, on anticoagulation transitioned to oral lasix. dc'd metolazone due to rising BUN echo done, EF: 35-40%, mod-severe MR, severe TR, global hypokinesis cardiology recommended cath, however unable to perform today due to receiving anticoagulation last night planning for stress test in AM continue metoprolol for Afib; restart home amiodarone, not on home med list, but was started on it a few months ago trop negative continue bronchodilators, PO prednisone Continue allopurinol for gout. Monitor and optimize electrolytes. Insulin sliding scale for glucose management. Continue Levaquin for pneumonia. Code: DNR Dispo: SNF - family and patient [place] [facility] prior to return to [facility] inn - assisted living social insurance adviser consulted anticipate medically clear/stable in ~1-2 days pending stress test results +/- cath Time Spent Managing Pts Care (In Minutes): 35
[2022-10-02] MEDS: INSULIN -REGULAR HUMAN 50 UNIT/0.5 ML ML SQ SCH ×4 (07:30→20:24)
[2022-10-02] MEDS: CYANOCOBALAMIN 2500 MCG SL SCH (07:48)
[2022-10-02] MEDS: FUROSEMIDE 40 MG TABLET PO SCH ×2 (08:15→17:21)
[2022-10-02] MEDS: predniSONE 20 MG TAB PO SCH (08:15)
[2022-10-02] MEDS: METOPROLOL TAR 50 MG TAB PO SCH (08:15)
[2022-10-02] MEDS: CALCIUM CARB 500MG/VIT D 200 IU TAB PO SCH (08:15)
[2022-10-02] MEDS: VALSARTAN 160 MG TAB PO SCH (08:15)
[2022-10-02] MEDS: allopurinoL 300 MG TAB PO SCH (08:15)
[2022-10-02] MEDS: POTASSIUM CL SA 10 MEQ TAB PO SCH ×3 (08:15→20:23)
[2022-10-02] MEDS: HOME MED 1 EA UNK (Linagliptin [Tradjenta] 5 MG Tablet) PO SCH (08:16)
[2022-10-02] MEDS: DORZOLAMIDE TIMOLOL EYE OPTH SCH ×3 (08:16→20:23)
[2022-10-02] MEDS: VITAMIN D 5,000 UNIT CAP PO SCH ×2 (08:16→20:22)
[2022-10-02] MEDS: DORZOLAMIDE HCL OPTH SCH ×2 (08:27→20:27)
[2022-10-02] MEDS: TIMOLOL MALEAT OPTH SCH ×2 (08:27→20:27)
[2022-10-02 08:30] LABS: Absolute Lymphocytes (CBC) 0.8 K/uL (0.7-4.9); Hematocrit 44.5 % (36.0-45.0); Lymphocytes % 12.1 % (15.3-44.8); MCV 98.2 fL (80-100); MPV 8.5 fL (7.6-11.3); RBC Red Blood Cell Count 4.53 M/uL (3.86-4.86)
[2022-10-02 08:49] LABS: Albumin 2.6 g/dL (3.4-5.0); Bilirubin Total 0.6 mg/dL (0.2-1.0); Magnesium 1.8 mg/dL (1.6-2.4); Potassium 3.7 mmol/L (3.5-5.1); Protein, Total 6.6 g/dL (6.4-8.2)
[2022-10-02] MEDS ORDERED: LIDOCAINE 1% 20 ML MDV ONE (10:30)
[2022-10-02] MEDS ORDERED: HEPA 1000U/500MLS 2,000 UNIT/1,000 ML BAG IV ONE (10:30)
[2022-10-02] MEDS ORDERED: levoFLOXacin 750 MG TAB PO SCH (12:00)
[2022-10-02] MEDS: AMIODARONE HCL 200 MG TAB PO SCH (12:36)
[2022-10-02] MEDS: METOPROLOL XL 100 MG TAB PO SCH (17:22)
--- NOTE | 2022-10-02 17:55 | PN ---
Date of Progress Note: 10/02/2022 Subjective: Seen by bedside. She is very weak generally, but her breathing has improved. On echo, her ejection fraction is 35% to 40%, which is a new. She has significant tricuspid valve regurgitati on as well with significant pulmonary hypertension. Review of Systems: There is no chest pain, but she has shortness of breath with minimal exertion. No orthopnea. No brice sea, vomiting, diarrhea. No abdominal pain. No dysuria, polyuria, or urinary urgency. No skin rash , headache. All other systems reviewed and they were negative. Physical Examination: Vital Signs: Reviewed. Head and Neck: Pupils are equal, reactive to light. Intact eye movements. No JVD. No cervical lym phadenopathy. Neck is supple. Thyroid is not enlarged. Lungs: Decreased breathing sounds with faint crackles in the bases. No accessory muscle use or musc le retraction. Heart: Irregular. No extra sounds. Abdomen: Soft, nontender. Bowel sounds positive. No organomegaly. No masses or hernia. No rigidi ty or rebound. Extremities: No clubbing or cyanosis. Intact pulses. Trace edema. Skin: No rash. Neurologic: Alert, awake, oriented x3. No acute focal deficits appreciated. Investigations: BUN 28, creatinine 0.87, and hemoglobin 14.7. On echo, her ejection fraction is mod erately depressed. Assessment And Recommendations: 1.Acute congestive heart failure exacerbation, systolic dysfunction. This is a new diagnosis. She was diuresed and she appears to be euvolemic for now. Recommend coronary angiogram to rule out ische john as a cause of her recent drop in her ejection fraction. Fortunately, she received an anticoagula nt today, skip it to hold and plan for coronary angiogram on , in the interim to replace the anticoagulant with Lovenox. 2.Hypertension. Blood pressure is slightly elevated. Recommend to increase metoprolol to 100 mg tw ice a day as she has atrial fibrillation. 3.Atrial fibrillation. Rate is high. Increase metoprolol to 100 mg twice a day. Continue amiodaro ne and hold the anticoagulant . SR/MODL Voice ID: [id number] Report ID: [id number]
[2022-10-02] MEDS: EYE OPTH SCH (20:23)
[2022-10-02] MEDS: LATANOPROST 0.005% OPTH SCH (20:23)
[2022-10-02] MEDS: ACETAMINOPHEN 500 MG TAB PO PRN (20:23)
[2022-10-02] MEDS: ATORVASTATIN 40 MG TAB PO SCH (20:27)
[2022-10-03 03:29] LABS: Hematocrit 44.1 % (36.0-45.0); MPV 8.2 fL (7.6-11.3); RBC Red Blood Cell Count 4.46 M/uL (3.86-4.86)
[2022-10-03 04:59] LABS: Potassium 3.5 mmol/L (3.5-5.1)
[2022-10-03] MEDS: METOPROLOL XL 100 MG TAB PO SCH ×2 (05:14→17:44)
[2022-10-03] MEDS ORDERED: REGADENOSON 0.4 MG/5 ML SYR IV ONE (07:07)
[2022-10-03] MEDS: INSULIN -REGULAR HUMAN 50 UNIT/0.5 ML ML SQ SCH ×4 (07:30→20:35)
--- NOTE | 2022-10-03 08:15 | P.PN ---
Date of Service: 10/03/22 Subjective: no new /worsening symptoms no chest pain low appetite no acute events overnight, remains tachycardic, in afib ROS: A complete review of systems was performed and is negative except as mentioned above Physical Exam General: Alert, In no apparent distress HEENT: Sclerae nonicteric, normal conjunctiva Respiratory: non-labored respirations on room airm, diminished at bases Cardiovascular: irregularly irregular rhythm, Normal S1 S2 Gastrointestinal: soft, nontender, nondistended Neurological: Normal speech, Normal strength at 5/5 x4 extr, Normal affect vitals reviewed Problem List acute CHF exacerbation, diastolic; new moderate-severe mitral regurgitation, new severe tricuspid regurgitation, new acute hypoxemic respiratory failure secondary to diastolic CHF; possible pneumonia acute gout NIDDM2 HTN Afib, paroxysmal, on anticoagulation transitioned to oral lasix. dc'd metolazone due to rising BUN echo done, EF: 35-40%, mod-severe MR, severe TR, global hypokinesis cardiology recommended cath, however unable to perform today due to receiving anticoagulation the night before stress test done 10/03 - negative continues in afib metoprolol increased PO amio restarted 10/02, off for several days continues with HR: 95-120s cardiology recommends reload with IV amio, possible BRAIN cardioversion tomorrow if still in afib with RVR continue metoprolol for Afib; restarted home amiodarone, not on home med list, but was started on it a few months ago suspect symptoms were secondary to acute new CHF, dc prednisone - s/p >4days, and completed ~5 days of antibiotics, dc levaquin continue bronchodilators, dc prednisone Continue allopurinol for gout. Monitor and optimize electrolytes. Insulin sliding scale for glucose management. Code: DNR Dispo: SNF - family and patient [place] [facility] prior to return to [facility] inn - assisted living manager social consulted anticipate medically clear/stable in ~1-2 days pending stress test results +/- cath possible BRAIN cardioversion tomorrow Time Spent Managing Pts Care (In Minutes): 35
[2022-10-03] MEDS ORDERED: LIDOCAINE 1% 20 ML MDV ONE (08:47)
[2022-10-03] MEDS ORDERED: HEPA 1000U/500MLS 0 UNIT/0 ML BAG IV ONE (08:47)
[2022-10-03] MEDS: DORZOLAMIDE HCL OPTH SCH ×2 (09:00→20:40)
[2022-10-03] MEDS: HOME MED 1 EA UNK (Linagliptin [Tradjenta] 5 MG Tablet) PO SCH (09:00)
[2022-10-03] MEDS: CYANOCOBALAMIN 2500 MCG SL SCH (09:00)
[2022-10-03] MEDS: TIMOLOL MALEAT OPTH SCH ×2 (09:00→20:40)
--- NOTE | 2022-10-03 09:34 | RAD REPORT ---
EXAM DESCRIPTION: NM - Rest Stress Cardiac Imaging - 10/03/2022 8:50 am CLINICAL HISTORY: Unstable Angina Chest pain. COMPARISON: No comparisons TECHNIQUE: The patient was administered approximately 10mCi of Tc 99m Sestamibi prior to resting SPE CT imaging of the heart. The patient was then administered approximately 30 mCi of Tc 99m Sestamibi f ollowing exercise or pharmacologic stress. Multiplanar SPECT images were reviewed. FINDINGS: No stress induced ischemic defect is seen to suggest stress induced ischemia. No fixed def ect is seen to suggest hibernating myocardium or scarred myocardium. The end diastolic volume is 34 ml, the end systolic volume is 12 ml, and the ejection fraction is 64 %. IMPRESSION: No stress induced ischemia.
[2022-10-03] MEDS: CALCIUM CARB 500MG/VIT D 200 IU TAB PO SCH (09:39)
[2022-10-03] MEDS: FUROSEMIDE 40 MG TABLET PO SCH (09:39)
[2022-10-03] MEDS: predniSONE 20 MG TAB PO SCH (09:43)
[2022-10-03] MEDS: allopurinoL 300 MG TAB PO SCH (09:43)
[2022-10-03] MEDS: AMIODARONE HCL 200 MG TAB PO SCH (09:43)
[2022-10-03] MEDS: VALSARTAN 160 MG TAB PO SCH (09:43)
[2022-10-03] MEDS: DORZOLAMIDE TIMOLOL EYE OPTH SCH ×2 (09:44→20:38)
[2022-10-03] MEDS: POTASSIUM CL SA 10 MEQ TAB PO SCH ×3 (09:44→20:35)
[2022-10-03] MEDS: VITAMIN D 5,000 UNIT CAP PO SCH ×2 (09:44→20:35)
[2022-10-03] MEDS: ENOXAPARIN 80 MG/0.8 ML SQ SCH ×2 (09:57→20:35)
--- NOTE | 2022-10-03 14:30 | TREADPHA ---
DX: UNSTABLE ANGINA Date of Study: 10/03/2022 Ht: 5' 5 " Wt: 151 lb 0 oz Consulting Physician: KO MEDICATIONS: NOVOLIN, AMIODARONE, PREDNISONE, DIOVAN, KLOR-CON, LASIX, OSCAL, VITAMIN D, TOPROL XL, LATANOPROST, LIPITOR, LEVAQUIN HISTORY: 81 YEAR OLD FEMALE WITH COMPLAINTS OF CHEST PAIN. HISTORY OF HYPERTENSION, HYPERLIPIDEMIA, CONGESTIVE HEART FAILURE, HYPOTHYROID, PREVIOUS COLON CANCER, ATRIAL FIBRILLATION, DIABETES MELLITUS, AND GOUT PHYSICIAL EXAMINATION: RESTING B.P.: 151/103 RESTING H.R.: 81 RESTING EKG: ATIRAL FIBRILLATION PROTOCOL: PHARMACOLOGIC EXERCISE TIME: 3:30 B.P. AT PEAK STRESS: 125/84 IMPRESSION: LEXISCAN INJECTED, CARDIOLITE GIVEN PER PROTOCOL. SEE NUCLEAR MEDICINE REPORT. PATIENT IN ATRIAL FIBRILLATION. NO SUPRAVENTRICULAR TACHYCARDIA, VENTRICULAR TACHYCARDIA, PREMATURE ATRIAL COMPLEXES, PREMATURE VENTRICULAR COMPLEXES NOTED. DENIES CHEST PAIN OR SHORTNESS OF BREATH. NO EKG CHANGES OF ISCHEMIA WITH LEXISCAN.
[2022-10-03] MEDS ORDERED: AMIODARONE HCL 150 MG in D5W 100 ML IV STA (14:52)
[2022-10-03] MEDS ORDERED: AMIODARONE HCL 900 MG in Dextrose 5%-Water 482 ML IV SCH (15:00)
--- NOTE | 2022-10-03 20:14 | PN ---
Date of Progress Note: 10/03/2022 Subjective: Seen by bedside. Breathing is improved significantly. Review of Systems: No chest pain or shortness of breath, orthopnea, cough, or nausea, vomiting, or diarrhea. All other systems were reviewed and they were negative. Physical Examination: Vital Signs: Reviewed. Head and Neck: Pupils are equal, reactive to light. Intact eye movements. No JVD. No cervical lym phadenopathy. Neck is supple. Thyroid is not enlarged. Lungs: Clear to auscultation bilaterally. No rhonchi, wheezing, or crackles. No accessory muscle u se. Heart: Irregularly irregular. No extra sounds. Abdomen: Soft, nontender. Bowel sounds positive. No organomegaly. No masses or hernia. No rigidi ty or rebound. Extremities: Trace edema bilaterally. No clubbing or cyanosis. Intact pulses. Skin: No rash. Neurologic: Alert, awake, oriented x3. No acute focal deficits appreciated. Lymph Nodes: No cervical or axillary adenopathy. Investigations: Cardiac stress test was negative for acute ischemia. Assessment And Recommendations: 1.Acute on chronic systolic heart failure exacerbation. Stress test is negative for ischemia. Like ly, this low ejection fraction is due to atrial fibrillation. We will plan to restore sinus rhythm. Meanwhile, patient is on Lasix by mouth daily to be continued and monitor BUN, creatinine, and elect rolytes. 2.Atrial fibrillation due to the congestive heart failure. We will try to restore sinus rhythm. To load with IV amiodarone and by tomorrow if patient continues to be in atrial fibrillation, we will plan to do a BRAIN cardioversion and the patient is currently on Lovenox, which will be continued. SR/MODL Voice ID: [id number] Report ID: [id number]
[2022-10-03] MEDS: ATORVASTATIN 40 MG TAB PO SCH (20:35)
[2022-10-03] MEDS: EYE OPTH SCH (20:38)
[2022-10-03] MEDS: LATANOPROST 0.005% OPTH SCH (20:38)
[2022-10-03] MEDS: GABAPENTIN 300 MG CAP PO SCH (22:26)
[2022-10-04] MEDS: METOPROLOL XL 100 MG TAB PO SCH ×2 (05:04→17:26)
[2022-10-04 06:00] LABS: Hematocrit 44.5 % (36.0-45.0); MCV 97.8 fL (80-100); MPV 8.3 fL (7.6-11.3); RBC Red Blood Cell Count 4.55 M/uL (3.86-4.86)
[2022-10-04 06:13] LABS: Albumin 2.5 g/dL (3.4-5.0); Bilirubin Total 0.7 mg/dL (0.2-1.0); Magnesium 2.1 mg/dL (1.6-2.4); Potassium 3.4 mmol/L (3.5-5.1)
[2022-10-04] MEDS: INSULIN -REGULAR HUMAN 50 UNIT/0.5 ML ML SQ SCH ×4 (07:30→20:59)
[2022-10-04] MEDS ORDERED: KCL 20 MEQ/100 mL IVPB 20 MEQ/100 ML BAG IV SCH (08:00)
--- NOTE | 2022-10-04 08:49 | P.PN ---
Date of Service: 10/04/22 Subjective: no new /worsening symptoms no chest pain feeling better each day still some dyspnea on exertion, but better at rest remains in afib, HR in 90s -low 100s now - re-loaded with IV amio yesterday ROS: A complete review of systems was performed and is negative except as mentioned above Physical Exam General: Alert, In no apparent distress HEENT: Sclerae nonicteric, normal conjunctiva Respiratory: non-labored respirations on room airm, diminished at bases Cardiovascular: irregularly irregular rhythm, Normal S1 S2 Gastrointestinal: soft, nontender, nondistended Neurological: Normal speech, Normal strength at 5/5 x4 extr, Normal affect vitals reviewed Problem List acute CHF exacerbation, diastolic; new moderate-severe mitral regurgitation, new severe tricuspid regurgitation, new acute hypoxemic respiratory failure secondary to diastolic CHF; possible pneumonia acute gout NIDDM2 HTN Afib, paroxysmal, on anticoagulation transitioned to oral lasix. dc'd metolazone due to rising BUN echo done, EF: 35-40%, mod-severe MR, severe TR, global hypokinesis cardiology recommended cath, however unable to perform today due to receiving anticoagulation the night before stress test done 10/03 - negative continues in afib metoprolol increased PO amio restarted 10/02, off for several days continues with HR: 95-120s cardiology recommended reload with IV amio on 10/03, plan for cardioversion 10/04 continue metoprolol for Afib; restarted home amiodarone, not on home med list, but was started on it a few months ago suspect symptoms were secondary to acute new CHF, dc prednisone - s/p >4days, and completed ~5 days of antibiotics, dc levaquin - risk of Qt prolongation / arrhythmia as well continue bronchodilators, dc'd prednisone 10/03 Continue allopurinol for gout. Monitor and optimize electrolytes. Insulin sliding scale for glucose management. Code: DNR Dispo: SNF - family and patient planning to go to [facility] prior to return to [facility] inn - assisted living social studies teacher consulted anticipate medically clear/stable in ~1 day pending cardioversion Time Spent Managing Pts Care (In Minutes): 25
[2022-10-04] MEDS: ENOXAPARIN 80 MG/0.8 ML SQ SCH ×2 (08:50→20:57)
[2022-10-04] MEDS: FUROSEMIDE 40 MG TABLET PO SCH (08:51)
[2022-10-04] MEDS: CYANOCOBALAMIN 2500 MCG SL SCH (08:51)
[2022-10-04] MEDS: POTASSIUM CL SA 10 MEQ TAB PO SCH ×3 (08:51→20:57)
[2022-10-04] MEDS: VALSARTAN 160 MG TAB PO SCH (08:51)
[2022-10-04] MEDS: VITAMIN D 5,000 UNIT CAP PO SCH ×2 (08:52→20:57)
[2022-10-04] MEDS: GABAPENTIN 300 MG CAP PO SCH ×2 (08:52→20:57)
[2022-10-04] MEDS: CALCIUM CARB 500MG/VIT D 200 IU TAB PO SCH (08:52)
[2022-10-04] MEDS: HOME MED 1 EA UNK (Linagliptin [Tradjenta] 5 MG Tablet) PO SCH (08:52)
[2022-10-04] MEDS: allopurinoL 300 MG TAB PO SCH (08:52)
[2022-10-04] MEDS ORDERED: MIDAZOLAM HCL 5 ML ONE (13:10)
[2022-10-04] MEDS ORDERED: FENTANYL CITR 100 MCG/2 ML ONE (13:10)
[2022-10-04] MEDS ORDERED: METOPROLOL TARTRATE 5 MG/5 ML INJ IV ONE (13:11)
[2022-10-04] MEDS ORDERED: LIDOCAINE VISCOUS 2% SOLN 15 ML UDC ONE (13:11)
[2022-10-04] MEDS ORDERED: PHENOL 1.4% ORAL SPRAY 180ML ONE (13:11)
[2022-10-04] MEDS ORDERED: ATROPINE SULF 1 MG/10 ML SYR IV ONE (13:11)
[2022-10-04] MEDS ORDERED: NA CHLORIDE 0.9% 1,000 ML ONE (14:16)
[2022-10-04] MEDS ORDERED: FLUMAZENIL 0.1 MG/ML (5 mL VIAL) IV ONE (14:25)
--- NOTE | 2022-10-04 14:49 | PN ---
Date of Progress Note: 10/04/2022 Subjective: Seen by bedside. She is doing well. No new complaints. Review of Systems: No chest pain, shortness of breath, orthopnea, cough, nausea, vomiting, or diarrhea. All other syste ms were reviewed. They were negative. Physical Examination: Vital Signs: Reviewed. Head and Neck: Pupils are equal, reactive to light. Intact eye movements. No JVD. No cervical lym phadenopathy. Neck is supple. Thyroid is not enlarged. Lungs: Clear to auscultation. Heart: Irregularly irregular. No extra sounds. Abdomen: Soft, nontender. Bowel sounds positive. No organomegaly. No masses or hernia. No rigidi ty or rebound. Extremities: Trace edema bilaterally. No clubbing or cyanosis. Intact pulses. Skin: No rash. Neurological: Alert, awake, oriented x3. No acute focal deficits appreciated. Investigations: Labs were reviewed. Assessment And Plan: 1.Acute on chronic systolic heart failure exacerbation, recent drop in ejection fraction, but stress test is negative. This could be the tachy induced cardiomyopathy due to atrial fibrillation. Plan for cardioversion today. 2.Atrial fibrillation. She has been loaded with amiodarone overnight. We will plan for a BRAIN-guided cardioversion today and continue anticoagulants. SR/MODL Voice ID: [id number] Report ID: [id number]
[2022-10-04] MEDS: ACETAMINOPHEN 500 MG TAB PO PRN (20:56)
[2022-10-04] MEDS: DORZOLAMIDE TIMOLOL EYE OPTH SCH (20:57)
[2022-10-04] MEDS: EYE OPTH SCH (20:57)
[2022-10-04] MEDS: LATANOPROST 0.005% OPTH SCH (20:57)
[2022-10-04] MEDS: ATORVASTATIN 40 MG TAB PO SCH (20:57)
[2022-10-05 04:12] LABS: Magnesium 1.8 mg/dL (1.6-2.4); Potassium 3.6 mmol/L (3.5-5.1)
[2022-10-05] MEDS: METOPROLOL XL 100 MG TAB PO SCH (05:39)
[2022-10-05] MEDS: HOME MED 1 EA UNK (Linagliptin [Tradjenta] 5 MG Tablet) PO SCH (09:00)
[2022-10-05] MEDS ORDERED: MAGNESIUM SULFATE 1 gm IVPB 1 GM/100 ML BAG IV ONE (09:00)
[2022-10-05] MEDS: CYANOCOBALAMIN 2500 MCG SL SCH (09:00)
[2022-10-05 09:18] VITALS: O2SAT 97
[2022-10-05] MEDS: ENOXAPARIN 80 MG/0.8 ML SQ SCH (10:02)
[2022-10-05] MEDS: CALCIUM CARB 500MG/VIT D 200 IU TAB PO SCH (10:02)
[2022-10-05] MEDS: GABAPENTIN 300 MG CAP PO SCH (10:02)
[2022-10-05] MEDS: FUROSEMIDE 40 MG TABLET PO SCH (10:03)
[2022-10-05] MEDS: POTASSIUM CL SA 10 MEQ TAB PO SCH (10:03)
[2022-10-05] MEDS: VITAMIN D 5,000 UNIT CAP PO SCH (10:04)
[2022-10-05] MEDS: VALSARTAN 160 MG TAB PO SCH (10:04)
[2022-10-05] MEDS: INSULIN -REGULAR HUMAN 50 UNIT/0.5 ML ML SQ SCH ×2 (10:04→11:30)
[2022-10-05] MEDS: allopurinoL 300 MG TAB PO SCH (10:04)
[2022-10-05] MEDS ORDERED: AMIODARONE HCL 200 MG TAB PO SCH (10:30)
[2022-10-05 12:05] VITALS: BP 113/62; TEMP 98.2
--- NOTE | 2022-10-05 18:53 | P.DS ---
Admission Date: 09/28/22 Discharge Date: 10/05/22 Primary Care Provider: Jocelyn Disposition: TRANSFER TO SNF - MEDICAL Discharge Condition: FAIR Reason for Admission: CHF Exacerbation Consultations: Cardiology - Dr. Rivera Brief History of Present Illness: 81 year old female with past medical history of hypertension, type 2 diabetes mellitus, recurrent UTI, hyperlipidemia, chronic diastolic CHF, paroxysmal afib on xarelto, colon cancer, and chronic kidney disease who presented to the ED with complaints of shortness of breath that began a few hours SAMPLE TAILOR. Patient was just discharged from this facility today after treatment of UTI and left hand cellulitus. Her labs are significant for sodium 129, chloride 97, T bili 1.1, AST 38, alk phos 159, BNP 9800, D-dimer 1447. Chest xray showed "Mild bilateral pulmonary opacities are present, greatest in the right lung base likely representing infection/ developing pneumonia. Another possibility would be mild CHF. The heart is moderately enlarged. No displaced fractures." Venous ultrasound negative for DVT. CT chest angio was not completed due to lack of IV access and low suspicion for PE given daily xarelto use. She was given breathing treatments, antibiotics, and lasix in the ED. Patient is admitted for further management. 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 Echocardiogram revealed EF: 35-40%, mod-severe MR, severe TR, global hypokinesis. Stress test was performed and negative for perfusion defects. She was treated with diuretics and increased dose of metoprolol. Dr. Rivera was consulted, patient's heart rate continued >100, so she was reloaded with amio and underwent successful cardioversion. She was deemed stable for discharge to SNF, continue medications and physical therapy Follow up with Cardiology in ~2-3 weeks. She was initially empirically treated with antibiotics for possible pneumonia, however remained afebrile, and repeat imaging was more consistent with congestive heart failure and not pneumonia. Antibiotics were discontinued, and she continued to do well. Vital Signs/Physical Exam: Temp Pulse Resp BP Pulse Ox 98.2 F 61 14 113/62 96 10/05/22 12:00 10/05/22 12:00 10/05/22 12:00 10/05/22 12:00 10/05/22 12:00 Physical Exam General: Alert, In no apparent distress HEENT: Sclerae nonicteric, normal conjunctiva Respiratory: non-labored respirations on room air, clear bilaterally Cardiovascular: regular rate/rhythm, Normal S1 S2 Gastrointestinal: soft, nontender, nondistended Neurological: Normal speech, Normal strength at 5/5 x4 extr, Normal affect Laboratory Data at Discharge: WBC 9.60 K/uL (4.3-10.9) 10/04/22 05:43 Hgb 15.0 g/dL (12.0-15.0) 10/04/22 05:43 Hct 44.5 % (36.0-45.0) 10/04/22 05:43 Plt Count 328 K/uL (152-406) 10/04/22 05:43 PT 39.4 SECONDS (9.5-12.5) H 09/28/22 20:23 INR 3.58 09/28/22 20:23 Sodium 132 mmol/L (136-145) L 10/05/22 03:10 Potassium 3.6 mmol/L (3.5-5.1) 10/05/22 03:10 BUN 31 mg/dL (7-18) H 10/05/22 03:10 Creatinine 0.95 mg/dL (0.55-1.02) 10/05/22 03:10 Glucose 203 mg/dL (74-106) H 10/05/22 03:10 Phosphorus 3.2 mg/dL (2.5-4.9) 09/29/22 03:09 Magnesium 1.8 mg/dL (1.6-2.4) 10/05/22 03:10 Total Bilirubin 0.7 mg/dL (0.2-1.0) 10/04/22 05:43 AST 19 U/L (15-37) 10/04/22 05:43 ALT 31 U/L (13-56) 10/04/22 05:43 Alkaline Phosphatase 104 U/L (45-117) 10/04/22 05:43 Lipase 110 U/L (73-393) 09/28/22 20:23 Home Medications: Acetaminophen [Tylenol Extra Strength] 1 tab PO Q8HP PRN 12/16/17 Atorvastatin Calcium [Lipitor] 40 mg PO BEDTIME 12/16/17 Rivaroxaban [Xarelto*] 15 mg PO DAILY AT SUPPER 06/23/18 Potassium Chloride 10 meq PO TID 06/11/21 Linagliptin [Tradjenta] 5 mg PO DAILY 08/27/21 Olmesartan Medoxomil 40 mg PO DAILY PRN 01/25/22 Calcium Carbonate/Vitamin D3 [Caltrate 600 + D Soft Chew Tab] 1 each PO DAILY 05/01/22 Bimatoprost [Lumigan Opthalmic Drops*] 1 drop EACH EYE BEDTIME 05/04/22 Latanoprost/Pf [Latanoprost 0.005% Eye Drop] 1 drop EACH EYE BEDTIME 05/04/22 Allopurinol 300 mg PO DAILY 09/29/22 Cholecalciferol (Vitamin D3) [Vitamin D3] 5,000 unit PO BID 09/29/22 Cyanocobalamin (Vitamin B-12) [Vitamin B-12] 2,500 mcg SL DAILY 09/29/22 Dorzolamide HCl/Timolol Maleat [Cosopt Eye Drops] 1 drop OP Q12HR 09/29/22 Polyethylene Glycol 3350 [Miralax] 17 gm PO DAILYPRN PRN 09/29/22 cloNIDine HCL [Clonidine HCl] 0.1 mg PO Q6HP PRN 09/29/22 Gabapentin 2 cap PO BID 10/03/22 Amiodarone HCl [Pacerone] 200 mg PO DAILY 30 Days #30 tab 10/05/22 Furosemide [Lasix*] 40 mg PO DAILY tab 10/05/22 Metoprolol Succinate [Toprol Xl*] 100 mg PO BID 6AM 6PM tab 10/05/22 New Medications: Amiodarone HCl [Pacerone] 200 mg PO DAILY 30 Days #30 tab Physician Discharge Instructions: Problem List acute CHF exacerbation, diastolic; new; suspectedd atrial fibrillation induced cardiomyopathy moderate-severe mitral regurgitation, new severe tricuspid regurgitation, new acute hypoxemic respiratory failure secondary to diastolic CHF acute gout NIDDM2 HTN Afib, paroxysmal, on anticoagulation Patient presented with shortness of breath, found to have some pulmonary edema and hypoxic. Echocardiogram revealed EF: 35-40%, mod-severe MR, severe TR, global hypokinesis. Stress test was performed and negative for perfusion defects. She was treated with diuretics and increased dose of metoprolol. Dr. Rivera was consulted, patient's heart rate continued >100, so she was reloaded with amio and underwent successful cardioversion. She was deemed stable for discharge to SNF, continue medications and physical therapy Follow up with Cardiology in ~2-3 weeks. She was initially empirically treated with antibiotics for possible pneumonia, however remained afebrile, and repeat imaging was more consistent with congestive heart failure and not pneumonia. Antibiotics were discontinued, and she continued to do well. Time spent managing pt's care (in minutes): 45
--- NOTE | 2022-10-06 17:27 | EKG ---
Test Date: 2022-10-04 Test Time: 14:30:33 Simplex Operator: KENNY MEASUREMENT RESULTS: Intervals: Rate: 76 IA: 200 QRSD: 94 QT: 444 QTc: 499 [place]: P: 77 IA: 200 QRS: -47 T: 35 INTERPRETIVE STATEMENTS: Sinus rhythm with premature supraventricular complexes Low voltage QRS Left anterior fascicular block Cannot rule out Anterior infarct, age undetermined Abnormal ECG Compared to ECG 09/28/2022 19:30:27 Atrial premature complex(es) now present Left anterior fascicular block now present ST (T wave) deviation no longer present Possible ischemia no longer present Myocardial infarct finding still present Electronically Signed On 10-06-22 17:25:05 FIREARMS EXPERT by Gus Rivera
--- NOTE | 2022-10-09 07:14 | TEE ---
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 TRANSESOPHEGEAL ECHOCARDIOGRAM PROBE WAS INSERTED WITHOUT DIFFICULTY. 2. NO LEFT ATRIAL APPENDAGE THROMBUS IS SEEN. 3. MILD AORTIC INSUFFICIENCY 4. MILD MITRAL REGURGITATION TECHNOLOGIST: COY ANDINO
== END 2022-10-05 14:39 | DRG 291 ==
LOC: ER 19:02 → 2ND 23:14
PROVIDERS: ADMIT Internal Medicine; ATTEND Hospitalist
DX: I13.0 Hypertensive heart and chronic kidney disease with heart failure and stage 1 through stage 4 chronic kidney disease, or unspecified chronic kidney disease (principal); I50.23 Acute on chronic systolic (congestive) heart failure; J96.01 Acute respiratory failure with hypoxia; N18.9 Chronic kidney disease, unspecified; E11.22 Type 2 diabetes mellitus with diabetic chronic kidney disease; E11.65 Type 2 diabetes mellitus with hyperglycemia; I48.0 Paroxysmal atrial fibrillation; I08.1 Rheumatic disorders of both mitral and tricuspid valves; E78.5 Hyperlipidemia, unspecified; M10.9 Gout, unspecified; I27.20 Pulmonary hypertension, unspecified; I42.7 Cardiomyopathy due to drug and external agent; T50.905A Adverse effect of unspecified drugs, medicaments and biological substances, initial encounter; Z66 Do not resuscitate; Z86.73 Personal history of transient ischemic attack (TIA), and cerebral infarction without residual deficits; Z79.01 Long term (current) use of anticoagulants; Z90.710 Acquired absence of both cervix and uterus; Z85.038 Personal history of other malignant neoplasm of large intestine; Z79.899 Other long term (current) drug therapy; Z87.891 Personal history of nicotine dependence; Z20.822 Contact with and (suspected) exposure to COVID-19
CPT/HCPCS: 0240U; 36415; 71045; 78452; 80048; 80053; 80076; 81003; 82947; 83605; 83690; 83735; 83880; 84100; 84132; 84484; 85025; 85027; 85379; 85610; 87040; 87086; 87088; 92960; 93005; 93017; 93306; 93312; 93970; 94760; 96361; 96365; 96375; 97110; 97116; 97161; 97530; 99285; A9500; J0282; J0461; J1644; J1650; J1815; J1940; J2250; J2543; J2785; J2930; J3010; J3475; J7030; J7040; J7060; J7512; J7614; J7644; U0003